=== PATIENT | female | born 1960 | race Caucasian/White ===

== ENCOUNTER 2019-10-26 16:38 | Inpatient (IN) | payer BC, OTHER ==
[~2019-10-26] VITALS: Ht 170.2 cm; Wt 69.9 kg
--- OUTSIDE RECORDS SUMMARY | 2019-10-26 18:04 | XMS REPORT | Continuity of Care Document ---
Author Author [facility] t Organization [facility] Address [address] [place] [address] Phone Unavailable Care Team Providers Care Scientific Illustrator Name Role Phone Unavailable Unavailable Payers Payer Name Policy Type Policy Number Effective Date Expiration Date S ource Problems This patient has no known problems. Allergies, Adverse Reactions, Alerts Allergy Name Allergy Type Status Severity Reaction(s) Onset Date Inacti ve Date Treating Clinician Comments Source No Known Allergies DA Active U 2019-05-22 00:00:00 [facility] No Known Allergies DA Active U 2019-05-18 00:00:00 [facility] Medications This patient has no known medications. Procedures This patient has no known procedures. Results Test Description Test Time Test Comments Results Result Comments Source - XR CHEST 1 V 2019-09-11 15:18:00 FAX: Dennys Newell DO [phone] [place]: St: ADM FAX: Marielena Bhandari MD [phone] FAX: Darius Lauren NP [phone] Name: VANDA HATCH [facility] : 1960 Age/S: 58/F [address] [place] [address] Blvd Unit #: [id number] Loc: [place] [address] Phys: Darius Lauren NP Acct: [id number] Dis Date: Status: ADM IN PHONE #: [phone] Exam Date: 09/11/2019 151 FAX #: [phone] Reason: Post PM/ICD EXAMS: CPT CODE: [id number] XR CHEST 1 V 26455 Single view chest: HISTORY: Pacemaker placement. FINDINGS: Leads of a left transvenous defibrillator placed in appropriate position, placed since the comparison study 09/08/2019. The lungs are clear. No pleural effusion or pneumothorax. Patient has had a sternotomy IMPRESSION: Satisfactory left defibrillator placement SL: [id number] at 1518 Reported and signed by: Dex Jimenez M.D. CC: Dennys Aguilar DO; Marielena Duff MD; Darius Lauren NP Technologist: KRISTINA Parrish) Trnscrd Date/Time/By: 09/11/2019 (1517) : By: RodriguezETG Orig Print D/T: S: 09/11/2019 (1520) PAGE 1 Signed Report BASIC METABOLIC PANEL 2019-09-11 11:54:00 Test Item SODIUM (test code = NA) 134 mEq/L 134-147 N POTASSIUM (test code = K) 3.4 mEq/L 3.4-5.0 N CHLORIDE (test code = CL) 91 mEq/L 100-108 L CARBON DIOXIDE (test code = CO2) 37 mEq/L 21-33 H ANION GAP (test code = GAP) 9 0-20 N GLUCOSE (test code = GLU) 98 mg/dL 70-110 N BLOOD UREA NITROGEN (test code = BUN) 53 mg/dL 7-18 H GLOMERULAR FILTRATION RATE (test code = GFR) 42.2 90-95 L Units of measure = ml/min/1.73 m2 CREATININE (test code = CREAT) 1.3 mg/dL 0.6-1.3 N CALCIUM (test code = CA) 9.4 mg/dL 8.0-10.5 N [id number] 11:54:00* Test Item Value Reference Range Interpretation Comments MAGNESIUM (test code = MAG) 2.60 mg/dL 1.8-2.4 H [id number] 06:38:00* Test Item Value Reference Range Interpretation Comments GLUBED (test code = GLUBED) 101 MG/DL 70-110 N Performed by certified cable machine operator at [facility] - XR CHEST 2 [id number] 14:39:00 FAX: Dennys Newell DO [phone] [place]: St: PRE FAX: Marielena Bhandari MD [phone] Name: MAMIEVANDA HANSEN [facility] : 1960 Age/S: 58/F [address] [place] [address] Unit #: [id number] Loc: [place] [address] Phys: Marielena Duff MD Acct: [id number] Dis Date: Status: PRE SDC PHONE #: [phone] Exam Date: 09/08/2019 1437 FAX #: [phone] Reason: PRE-OP ICD EXAMS: CPT CODE: [id number] XR CHEST 2 V 74779 Two-view chest: HISTORY: Preoperative clearance FINDINGS: Both lungs are clear. No infiltrate or pleural fluid. Heart and mediastinal contour stable from 06/22/2019. The patient has had a sternotomy IMPRESSION: No acute finding SL: [id number] at 1439 Reported and signed by: Dex Jimenez M.D. CC: Dennys Aguilar DO; Marielena Duff MD Technologist: Caitlyn Cervantes, RT(R); Diane Doll RT(R) Trnscrd Date/Time/By: 09/08/2019 (1439) : By: RodriguezETG Orig Print D/T: S: 09/08/2019 (7002) PAGE 1 Signed Report BASIC METABOLIC PANEL 2019-09-08 14:38:00* Test Item Value Reference Range Interpretation Comments SODIUM (test code = NA) 127 mEq/L 134-147 L POTASSIUM (test code = K) 2.8 mEq/L 3.4-5.0 LL CHLORIDE (test code = CL) 80 mEq/L 100-108 L CARBON DIOXIDE (test code = CO2) 38 mEq/L 21-33 H ANION GAP (test code = GAP) 12 0-20 N GLUCOSE (test code = GLU) 168 mg/dL 70-110 H BLOOD UREA NITROGEN (test code = BUN) 56 mg/dL 7-18 H GLOMERULAR FILTRATION RATE (test code = GFR) 90-95 CREATININE (test code = CREAT) mg/dL 0.6-1.3 CALCIUM (test code = CA) 9.9 mg/dL 8.0-10.5 N BASIC METABOLIC [id number] 14:38:00* Test Item Value Reference Range Interpretation Comments SODIUM (test code = NA) 127 mEq/L 134-147 L POTASSIUM (test code = K) 2.8 mEq/L 3.4-5.0 LL CHLORIDE (test code = CL) 80 mEq/L 100-108 L CARBON DIOXIDE (test code = CO2) 38 mEq/L 21-33 H ANION GAP (test code = GAP) 12 0-20 N GLUCOSE (test code = GLU) 168 mg/dL 70-110 H BLOOD UREA NITROGEN (test code = BUN) 56 mg/dL 7-18 H GLOMERULAR FILTRATION RATE (test code = GFR) 29.0 90-95 L Units of measure = ml/min/1.73 m2 CREATININE (test code = CREAT) 1.8 mg/dL 0.6-1.3 H CALCIUM (test code = CA) 9.9 mg/dL 8.0-10.5 N PROTHROMBIN [id number] 14:24:00* Test Item Value Reference Range Interpretation Comments PROTHROMBIN TIME PATIENT (test code = PTP) 18.6 SECONDS 9.3-12.9 H INTERNATIONAL NORMAL RATIO (test code = INR) 1.7 0.8-1.2 H TARGET INR BY INDICATION Indication INR1. Prophylaxis of venous thrombosis 2.0 - 3.0 (orthopedic surgery), Prophylaxis of venous thrombosis (other than high-risk surgery), Treatment of Deep Vein Thrombosis/Pulmonary Embolism, Prevention of systemic embolism - Tissue heart valves, Acute Myocardial Infarction (to prevent systemic embolism), Valvular heart disease, Atrial Fibrillation, Bileaflet mechanical valve in aortic position.2. Mechanical prosthetic valves (high risk), 2.5 - 3.5 Presence of Lupus Anticoagulant or Antiphospholipid Antibodies, Prevention of systemic embolism - Acute Myocardial Infarction (to prevent recurrent infarct). CBC W/AUTO [id number] 14:18:00* Test Item Value Reference Range Interpretation Comments WHITE BLOOD CELL (test code = WBC) 9.10 x10 3/uL 4.5-11.0 N RED BLOOD CELL (test code = RBC) 5.09 x10 6/uL 3.54-5.02 H HEMOGLOBIN (test code = HGB) 14.8 g/dL 11.0-15.0 N HEMATOCRIT (test code = HCT) 43.9 % 33.0-45.0 N MEAN CELL VOLUME (test code = MCV) 86.2 fL 81.0-99.0 N MEAN CELL HGB (test code = MCH) 29.1 pg 27.0-33.0 N MEAN CELL HGB CONCETRATION (test code = MCHC) 33.7 g/dL 33.0-37. 0 N RED CELL DISTRIBUTION WIDTH CV (test code = RDW) 13.2 % 11.5- 14.5 N RED CELL DISTRIBUTION WIDTH SD (test code = RDW-SD) 42.2 fL 37 .0-54.0 N PLATELET COUNT (test code = PLT) 358 x10 3/uL 150-400 N MEAN PLATELET VOLUME (test code = MPV) 10.4 fL 7.0-9.0 H NEUTROPHIL % (test code = NT%) 64.0 % 56.0-77.0 N IMMATURE GRANULOCYTE % (test code = IG%) 0.3 % 0.0-2.0 N LYMPHOCYTE % (test code = LY%) 26.4 % 14.0-32.0 N MONOCYTE % (test code = MO%) 7.4 % 4.8-9.0 N EOSINOPHIL % (test code = EO%) 1.1 % 0.3-3.7 N BASOPHIL % (test code = BA%) 0.8 % 0.0-2.0 N NUCLEATED RBC % (test code = NRBC%) 0.0 % 0-0 N NEUTROPHIL # (test code = NT#) 5.83 x10 3/uL 2.0-7.6 N IMMATURE GRANULOCYTE # (test code = IG#) 0.03 x10 3/uL 0.00-0.03 N LYMPHOCYTE # (test code = LY#) 2.40 x10 3/uL 1.0-3.8 N MONOCYTE # (test code = MO#) 0.67 x10 3/uL 0.1-0.8 N EOSINOPHIL # (test code = EO#) 0.10 x10 3/uL 0.0-0.2 N BASOPHIL # (test code = BA#) 0.07 x10 3/uL 0.0-0.2 N NUCLEATED RBC # (test code = NRBC#) 0.00 x10 3/uL 0.0-0.1 N MANUAL DIFF REQUIRED (test code = MDIFF) NO [id number] 11:11:00* Test Item Value Reference Range Interpretation Comments GLUBED (test code = GLUBED) 324 MG/DL 70-110 H Performed by certified cable machine operator at [facility] [id number] 07:12:00* Test Item Value Reference Range Interpretation Comments GLUBED (test code = GLUBED) 186 MG/DL 70-110 H Performed by certified cable machine operator at [facility] [id number] 06:28:00* Test Item Value Reference Range Interpretation Comments GLUBED (test code = GLUBED) 49 MG/DL 70-110 L Performed by certified cable machine operator at [facility] [id number] 20:37:00* Test Item Value Reference Range Interpretation Comments GLUBED (test code = GLUBED) 179 MG/DL 70-110 H Performed by certified cable machine operator at [facility] [id number] 16:24:00* Test Item Value Reference Range Interpretation Comments GLUBED (test code = GLUBED) 326 MG/DL 70-110 H Performed by certified cable machine operator at [facility] - XR SWLW FUNC W/C [id number] 14:13:00 FAX: Silvino Marcos [phone] [place]: St: ADM FAX: Dennys Newell DO [phone] Name: VANDA HATCH [facility] [place] : 1960 Age/S: 58/F [address] [place] [address] Unit #: [id number] Loc: [place] [address] Phys: Silvino Keller MD Acct: [id number] Dis Date: Status: ADM IN PHONE #: [phone] Exam Date: 06/26/2019 1340 FAX #: [phone] Reason: SENSATION GLOBUS EXAMS: CPT CODE: [id number] XR SWLW FUNC W/C V 93991 Modified barium swallow study HISTORY: Sensation g lobus, reflux. FINDINGS: The study was performed in conjunction [facility] speech therapy. The patient received multiple barium consistencies to swallow. There was normal oropharyngeal coordination. There is a prolong ed oropharyngeal transit. Chewing and swallowing reflex appeared normal. There was vallecular pooling and residual. Piriform pooling and re sidual was present. No laryngeal penetration or aspiration was identified . There was coughing without aspiration The total fluoroscopy narinder e was 105.6 seconds Air kerma: 4.36 mGy. IMPRESSION: 1. No aspiration or penetration. 2. Hypopharyngeal pooling and re sidual. 3. Prolonged oropharyngeal transit. 4. Normal swallow reflex. Please see speech pathology report for further informa tion and recommendations. SL: [id number] at 1413 Reported and si gned by: Kris Boles M.D. CC: Silivno Keller; Dennys flores DO Technologist: RT Marita(Ramírez) Trnscrd Date/Time/By: 06/26/2019 (1413) : By: [email or web address] Orig Print D/T: S: 06/26/2019 (0423) PAGE 1 Signed Report [id number] 10:54:00 * Test Item Value Reference Range Interpretation Comments GLUBED (test code = GLUBED) 325 MG/DL 70-110 H Performed by certified cable machine operator at [facility] BASIC METABOLIC [id number] 07:55:00* Test Item Value Reference Range Interpretation Comments SODIUM (test code = NA) 128 mEq/L 134-147 L POTASSIUM (test code = K) 4.2 mEq/L 3.4-5.0 N CHLORIDE (test code = CL) 90 mEq/L 100-108 L CARBON DIOXIDE (test code = CO2) 30 mEq/L 21-33 N ANION GAP (test code = GAP) 12 0-20 N GLUCOSE (test code = GLU) 212 mg/dL 70-110 H BLOOD UREA NITROGEN (test code = BUN) 35 mg/dL 7-18 H GLOMERULAR FILTRATION RATE (test code = GFR) 42.2 90-95 L Units of measure = ml/min/1.73 m2 CREATININE (test code = CREAT) 1.3 mg/dL 0.6-1.3 N CALCIUM (test code = CA) 9.2 mg/dL 8.0-10.5 N [id number] 07:55:00* Test Item Value Reference Range Interpretation Comments ALBUMIN (test code = ALB) 3.20 g/dL 3.4-5.0 L [id number] 07:55:00* Test Item Value Reference Range Interpretation Comments MAGNESIUM (test code = MAG) 2.20 mg/dL 1.8-2.4 N [id number] 07:55:00* Test Item Value Reference Range Interpretation Comments PREALBUMIN (test code = PREALB) 17.4 mg/dL 16.0-40.0 N CBC W/AUTO [id number] 07:22:00* Test Item Value Reference Range Interpretation Comments WHITE BLOOD CELL (test code = WBC) 7.64 x10 3/uL 4.5-11.0 N RED BLOOD CELL (test code = RBC) 4.05 x10 6/uL 3.54-5.02 N HEMOGLOBIN (test code = HGB) 12.1 g/dL 11.0-15.0 N HEMATOCRIT (test code = HCT) 38.0 % 33.0-45.0 N MEAN CELL VOLUME (test code = MCV) 93.8 fL 81.0-99.0 N MEAN CELL HGB (test code = MCH) 29.9 pg 27.0-33.0 N MEAN CELL HGB CONCETRATION (test code = MCHC) 31.8 g/dL 33.0-37. 0 L RED CELL DISTRIBUTION WIDTH CV (test code = RDW) 19.6 % 11.5- 14.5 H RED CELL DISTRIBUTION WIDTH SD (test code = RDW-SD) 67.7 fL 37 .0-54.0 H PLATELET COUNT (test code = PLT) 437 x10 3/uL 150-400 H MEAN PLATELET VOLUME (test code = MPV) 10.5 fL 7.0-9.0 H NEUTROPHIL % (test code = NT%) 57.8 % 56.0-77.0 N IMMATURE GRANULOCYTE % (test code = IG%) 0.5 % 0.0-2.0 N LYMPHOCYTE % (test code = LY%) 23.6 % 14.0-32.0 N MONOCYTE % (test code = MO%) 7.5 % 4.8-9.0 N EOSINOPHIL % (test code = EO%) 9.3 % 0.3-3.7 H BASOPHIL % (test code = BA%) 1.3 % 0.0-2.0 N NUCLEATED RBC % (test code = NRBC%) 0.0 % 0-0 N NEUTROPHIL # (test code = NT#) 4.42 x10 3/uL 2.0-7.6 N IMMATURE GRANULOCYTE # (test code = IG#) 0.04 x10 3/uL 0.00-0.03 H LYMPHOCYTE # (test code = LY#) 1.80 x10 3/uL 1.0-3.8 N MONOCYTE # (test code = MO#) 0.57 x10 3/uL 0.1-0.8 N EOSINOPHIL # (test code = EO#) 0.71 x10 3/uL 0.0-0.2 H BASOPHIL # (test code = BA#) 0.10 x10 3/uL 0.0-0.2 N NUCLEATED RBC # (test code = NRBC#) 0.00 x10 3/uL 0.0-0.1 N MANUAL DIFF REQUIRED (test code = MDIFF) NO [id number] 05:27:00* Test Item Value Reference Range Interpretation Comments GLUBED (test code = GLUBED) 231 MG/DL 70-110 H Performed by certified cable machine operator at [facility] [id number] 21:51:00* Test Item Value Reference Range Interpretation Comments GLUBED (test code = GLUBED) 172 MG/DL 70-110 H Performed by certified cable machine operator at [facility] [id number] 17:17:00* Test Item Value Reference Range Interpretation Comments GLUBED (test code = GLUBED) 95 MG/DL 70-110 N Performed by certified cable machine operator at [facility] [id number] 16:30:00* Test Item Value Reference Range Interpretation Comments GLUBED (test code = GLUBED) 61 MG/DL 70-110 L Performed by certified cable machine operator at [facility] [id number] 16:01:00* Test Item Value Reference Range Interpretation Comments GLUBED (test code = GLUBED) 63 MG/DL 70-110 L Performed by certified cable machine operator at [facility] [id number] 11:36:00* Test Item Value Reference Range Interpretation Comments GLUBED (test code = GLUBED) 212 MG/DL 70-110 H Performed by certified cable machine operator at [facility] [id number] 06:36:00* Test Item Value Reference Range Interpretation Comments GLUBED (test code = GLUBED) 147 MG/DL 70-110 H Performed by certified cable machine operator at [facility] [id number] 20:26:00* Test Item Value Reference Range Interpretation Comments GLUBED (test code = GLUBED) 121 MG/DL 70-110 H Performed by certified cable machine operator at [facility] [id number] 16:46:00* Test Item Value Reference Range Interpretation Comments GLUBED (test code = GLUBED) 157 MG/DL 70-110 H Performed by certified cable machine operator at [facility] [id number] 10:58:00* Test Item Value Reference Range Interpretation Comments GLUBED (test code = GLUBED) 196 MG/DL 70-110 H Performed by certified cable machine operator at [facility] RENAL FUNCTION [id number] 08:00:00* Test Item Value Reference Range Interpretation Comments SODIUM (test code = NA) 130 mEq/L 134-147 L POTASSIUM (test code = K) 4.1 mEq/L 3.4-5.0 N CHLORIDE (test code = CL) 91 mEq/L 100-108 L CARBON DIOXIDE (test code = CO2) 32 mEq/L 21-33 N ANION GAP (test code = GAP) 11 0-20 N GLUCOSE (test code = GLU) 144 mg/dL 70-110 H BLOOD UREA NITROGEN (test code = BUN) 36 mg/dL 7-18 H GLOMERULAR FILTRATION RATE (test code = GFR) 51.2 90-95 L Units of measure = ml/min/1.73 m2 CREATININE (test code = CREAT) 1.1 mg/dL 0.6-1.3 N ALBUMIN (test code = ALB) 3.30 g/dL 3.4-5.0 L CALCIUM (test code = CA) 9.3 mg/dL 8.0-10.5 N PHOSPHOROUS (test code = PHOS) 3.7 MG/DL 2.5-4.9 N BASIC METABOLIC [id number] 07:41:00* Test Item Value Reference Range Interpretation Comments SODIUM (test code = NA) 130 mEq/L 134-147 L POTASSIUM (test code = K) 4.2 mEq/L 3.4-5.0 N CHLORIDE (test code = CL) 91 mEq/L 100-108 L CARBON DIOXIDE (test code = CO2) 31 mEq/L 21-33 N ANION GAP (test code = GAP) 12 0-20 N GLUCOSE (test code = GLU) 145 mg/dL 70-110 H BLOOD UREA NITROGEN (test code = BUN) 35 mg/dL 7-18 H GLOMERULAR FILTRATION RATE (test code = GFR) 57.1 90-95 L Units of measure = ml/min/1.73 m2 CREATININE (test code = CREAT) 1.0 mg/dL 0.6-1.3 N CALCIUM (test code = CA) 9.4 mg/dL 8.0-10.5 N [id number] 07:41:00* Test Item Value Reference Range Interpretation Comments MAGNESIUM (test code = MAG) 2.40 mg/dL 1.8-2.4 N CBC W/AUTO [id number] 07:40:00* Test Item Value Reference Range Interpretation Comments WHITE BLOOD CELL (test code = WBC) 8.21 x10 3/uL 4.5-11.0 N RED BLOOD CELL (test code = RBC) 4.18 x10 6/uL 3.54-5.02 N HEMOGLOBIN (test code = HGB) 12.2 g/dL 11.0-15.0 N HEMATOCRIT (test code = HCT) 38.9 % 33.0-45.0 N MEAN CELL VOLUME (test code = MCV) 93.1 fL 81.0-99.0 N MEAN CELL HGB (test code = MCH) 29.2 pg 27.0-33.0 N MEAN CELL HGB CONCETRATION (test code = MCHC) 31.4 g/dL 33.0-37. 0 L RED CELL DISTRIBUTION WIDTH CV (test code = RDW) 19.9 % 11.5- 14.5 H RED CELL DISTRIBUTION WIDTH SD (test code = RDW-SD) 66.8 fL 37 .0-54.0 H PLATELET COUNT (test code = PLT) 416 x10 3/uL 150-400 H MEAN PLATELET VOLUME (test code = MPV) 10.3 fL 7.0-9.0 H NEUTROPHIL % (test code = NT%) 65.6 % 56.0-77.0 N IMMATURE GRANULOCYTE % (test code = IG%) 0.4 % 0.0-2.0 N LYMPHOCYTE % (test code = LY%) 18.9 % 14.0-32.0 N MONOCYTE % (test code = MO%) 6.9 % 4.8-9.0 N EOSINOPHIL % (test code = EO%) 6.7 % 0.3-3.7 H BASOPHIL % (test code = BA%) 1.5 % 0.0-2.0 N NUCLEATED RBC % (test code = NRBC%) 0.0 % 0-0 N NEUTROPHIL # (test code = NT#) 5.39 x10 3/uL 2.0-7.6 N IMMATURE GRANULOCYTE # (test code = IG#) 0.03 x10 3/uL 0.00-0.03 N LYMPHOCYTE # (test code = LY#) 1.55 x10 3/uL 1.0-3.8 N MONOCYTE # (test code = MO#) 0.57 x10 3/uL 0.1-0.8 N EOSINOPHIL # (test code = EO#) 0.55 x10 3/uL 0.0-0.2 H BASOPHIL # (test code = BA#) 0.12 x10 3/uL 0.0-0.2 N NUCLEATED RBC # (test code = NRBC#) 0.00 x10 3/uL 0.0-0.1 N MANUAL DIFF REQUIRED (test code = MDIFF) NO [id number] 06:42:00* Test Item Value Reference Range Interpretation Comments GLUBED (test code = GLUBED) 188 MG/DL 70-110 H Performed by certified cable machine operator at [facility] [id number] 20:41:00* Test Item Value Reference Range Interpretation Comments GLUBED (test code = GLUBED) 137 MG/DL 70-110 H Performed by certified cable machine operator at [facility] [id number] 16:39:00* Test Item Value Reference Range Interpretation Comments GLUBED (test code = GLUBED) 142 MG/DL 70-110 H Performed by certified cable machine operator at [facility] [id number] 12:09:00* Test Item Value Reference Range Interpretation Comments GLUBED (test code = GLUBED) 252 MG/DL 70-110 H Performed by certified cable machine operator at [facility] [id number] 08:52:00* Test Item Value Reference Range Interpretation Comments GLUBED (test code = GLUBED) 178 MG/DL 70-110 H Performed by certified cable machine operator at [facility] RENAL FUNCTION [id number] 08:50:00* Test Item Value Reference Range Interpretation Comments SODIUM (test code = NA) 130 mEq/L 134-147 L POTASSIUM (test code = K) 4.2 mEq/L 3.4-5.0 N CHLORIDE (test code = CL) 93 mEq/L 100-108 L CARBON DIOXIDE (test code = CO2) 30 mEq/L 21-33 N ANION GAP (test code = GAP) 11 0-20 N GLUCOSE (test code = GLU) 113 mg/dL 70-110 H BLOOD UREA NITROGEN (test code = BUN) 37 mg/dL 7-18 H GLOMERULAR FILTRATION RATE (test code = GFR) 51.2 90-95 L Units of measure = ml/min/1.73 m2 CREATININE (test code = CREAT) 1.1 mg/dL 0.6-1.3 N ALBUMIN (test code = ALB) 3.30 g/dL 3.4-5.0 L CALCIUM (test code = CA) 9.4 mg/dL 8.0-10.5 N PHOSPHOROUS (test code = PHOS) 3.5 MG/DL 2.5-4.9 N [id number] 06:49:00* Test Item Value Reference Range Interpretation Comments GLUBED (test code = GLUBED) 117 MG/DL 70-110 H Performed by certified cable machine operator at [facility] [id number] 21:09:00* Test Item Value Reference Range Interpretation Comments GLUBED (test code = GLUBED) 171 MG/DL 70-110 H Performed by certified cable machine operator at [facility] [id number] 16:55:00* Test Item Value Reference Range Interpretation Comments GLUBED (test code = GLUBED) 177 MG/DL 70-110 H Performed by certified cable machine operator at [facility] - XR CHEST 1 [id number] 15:44:00 FAX: Silvino Marcos [phone] [place]: St: ADM FAX: Dennys Newell [phone] Name: MAMIEVANDA [facility] : 1960 Age/S: 58/F [address] [place] [address] Bl Unit #: [id number] Loc: [address] [address] Phys: Silvino Keller MD Acct: [id number] Dis Date: Status: ADM IN PHONE #: [phone] Exam Date: 06/22/2019 1535 FAX #: [phone] Reason: CRACKLES L SIDE S/P CABG EXAMS: CPT CODE: [id number] XR CHEST 1 V 38504 FRONTAL CHEST, 06/22/2019 2:36 PM : HISTORY: CRACKLES L SIDE S/P CABG. COMPARISON: 06/10/2019 FINDINGS: The heart is stable size. Status post median sternotomy. Left basilar opacity with associated pleural effusion. Right lung appears clear. No pneumothorax. IMPRESSION: 1. Left basilar opacity which may represent atelectasis and/or airspace disease. Associated left pleural effusion. SL: CN-H at 1544 Reported and signed by: Lobo Gamez M.D. CC: Silvino Keller; Dennys Aguilar DO Technologist: RT Marita(Ramírez) Trnscrd Date/Time/By: 06/22/2019 (1543) : By: [email or web address] Orig Print D/T: S: 06/22/2019 (3462) PAGE 1 Signed Report [id number] 11:21:00 * Test Item Value Reference Range Interpretation Comments GLUBED (test code = GLUBED) 284 MG/DL 70-110 H Performed by certified cable machine operator at [facility] [id number] 08:51:00* Test Item Value Reference Range Interpretation Comments GLUBED (test code = GLUBED) 234 MG/DL 70-110 H Performed by certified cable machine operator at [facility] [id number] 08:50:00* Test Item Value Reference Range Interpretation Comments GLUBED (test code = GLUBED) 139 MG/DL 70-110 H Performed by certified cable machine operator at [facility] [id number] 06:30:00* Test Item Value Reference Range Interpretation Comments GLUBED (test code = GLUBED) 86 MG/DL 70-110 N Performed by certified cable machine operator at [facility] [id number] 16:50:00* Test Item Value Reference Range Interpretation Comments GLUBED (test code = GLUBED) 180 MG/DL 70-110 H Performed by certified cable machine operator at [facility] RENAL FUNCTION [id number] 08:36:00* Test Item Value Reference Range Interpretation Comments SODIUM (test code = NA) 128 mEq/L 134-147 L POTASSIUM (test code = K) 4.6 mEq/L 3.4-5.0 N CHLORIDE (test code = CL) 92 mEq/L 100-108 L CARBON DIOXIDE (test code = CO2) 30 mEq/L 21-33 N ANION GAP (test code = GAP) 11 0-20 N GLUCOSE (test code = GLU) 98 mg/dL 70-110 BLOOD UREA NITROGEN (test code = BUN) 40 mg/dL 7-18 H GLOMERULAR FILTRATION RATE (test code = GFR) 42.2 90-95 L Units of measure = ml/min/1.73 m2 CREATININE (test code = CREAT) 1.3 mg/dL 0.6-1.3 N ALBUMIN (test code = ALB) 3.20 g/dL 3.4-5.0 L CALCIUM (test code = CA) 9.0 mg/dL 8.0-10.5 N PHOSPHOROUS (test code = PHOS) 4.4 MG/DL 2.5-4.9 N [id number] 07:16:00* Test Item Value Reference Range Interpretation Comments GLUBED (test code = GLUBED) 107 MG/DL 70-110 N Performed by certified cable machine operator at [facility] [id number] 00:52:00* Test Item Value Reference Range Interpretation Comments GLUBED (test code = GLUBED) 69 MG/DL 70-110 L Performed by certified cable machine operator at [facility] [id number] 20:01:00* Test Item Value Reference Range Interpretation Comments GLUBED (test code = GLUBED) 293 MG/DL 70-110 H Performed by certified cable machine operator at [facility] [id number] 17:23:00* Test Item Value Reference Range Interpretation Comments GLUBED (test code = GLUBED) 32 MG/DL 70-110 L Performed by certified cable machine operator at [facility] [id number] 17:23:00* Test Item Value Reference Range Interpretation Comments GLUBED (test code = GLUBED) 40 MG/DL 70-110 L Performed by certified cable machine operator at [facility] [id number] 17:23:00* Test Item Value Reference Range Interpretation Comments GLUBED (test code = GLUBED) 203 MG/DL 70-110 H Performed by certified cable machine operator at [facility] [id number] 17:15:00* Test Item Value Reference Range Interpretation Comments GLUBED (test code = GLUBED) 90 MG/DL 70-110 N Performed by certified cable machine operator at [facility] - XR ABDOMEN 1V (KUB)2019-06-20 15:27:00 FAX: Silvino Marcos [phone] [place]: St: ADM FAX: Tamara Robins NP [phone] FAX: Sage Dennys Aguilar DO [phone] Name: VANDA HATCH [facility] : 1960 Age/S: 58/F [address] [place] [address] Unit #: [id number] Loc: [address] [address] Phys: Tamara Robins NP Acct: [id number] Dis Date: Status: ADM IN ONE #: [phone] Exam Date: 06/20/2019 1506 FAX #: [phone] Reason: NAUSEA AND VOMITTING EXAMS: CPT CODE: [id number] XR ABDOMEN 1V ([facility]) [id number] PROCEDURE: ABD OMEN SINGLE VIEW INDICATION: NAUSEA AND VOMITTING COMPARISON: CXR 06/10/2019 FINDINGS: Supine images of the abdomen a nd pelvis were obtained, 2 images total. The bowel gas pattern is within n ormal limits. Moderate volume of fecal material throughout the colon to th e level of rectum. Anastomotic suture material in the right abdomen with r egional hemostasis clips compatible with previous bowel surgery. No gross free intraperitoneal air. Vascular calcifications noted. There is a coarse calcification overlying the right renal shadow approximately 2.5 cm in length uncorrected for magnification. There is ill-defined opacity in the visualized left lung base with obscuration of the hemidiaphragm. The r ight lung base is clear. The skeleton is intact. Subcutaneous edema bilate ral. IMPRESSION: 1. Nonobstructive bowel gas pattern. Moderate stool burden. 2. Right abdominal calcification, compatible with renal pelvic calculus. 3. Left basilar pleural-parenchymal dise ase incompletely imaged on this exam with probable progression from 06/09. SL: [id number] Electr onically Signed by Erinn Edwards on 0 at 1527 Reported and signed by: Smith price M.D. CC: Silvino Keller; Tamara Robins NP; Dennys Aguilar DO Technologist: RT Marcie(R) Trnraheem Da te/Time/By: 06/20/2019 (152) : By: Yrn Orig Print D/T: S: 06/19 (1531) PAGE 1 Signed Report [id number] 14:30:00* Test Item Value Reference Range Interpretation Comments GLUBED (test code = GLUBED) 87 MG/DL 70-110 N Performed by certified cable machine operator at [facility] [id number] 13:48:00* Test Item Value Reference Range Interpretation Comments GLUBED (test code = GLUBED) 46 MG/DL 70-110 L Performed by certified cable machine operator at [facility] [id number] 12:19:00* Test Item Value Reference Range Interpretation Comments GLUBED (test code = GLUBED) 130 MG/DL 70-110 H Performed by certified cable machine operator at [facility] RENAL FUNCTION [id number] 08:16:00* Test Item Value Reference Range Interpretation Comments SODIUM (test code = NA) 128 mEq/L 134-147 L POTASSIUM (test code = K) 4.7 mEq/L 3.4-5.0 N CHLORIDE (test code = CL) 93 mEq/L 100-108 L CARBON DIOXIDE (test code = CO2) 27 mEq/L 21-33 N ANION GAP (test code = GAP) 13 0-20 N GLUCOSE (test code = GLU) 163 mg/dL 70-110 H BLOOD UREA NITROGEN (test code = BUN) 37 mg/dL 7-18 H GLOMERULAR FILTRATION RATE (test code = GFR) 46.3 90-95 L Units of measure = ml/min/1.73 m2 CREATININE (test code = CREAT) 1.2 mg/dL 0.6-1.3 N ALBUMIN (test code = ALB) 3.00 g/dL 3.4-5.0 L CALCIUM (test code = CA) 8.8 mg/dL 8.0-10.5 N PHOSPHOROUS (test code = PHOS) 3.8 MG/DL 2.5-4.9 N [id number] 08:16:00* Test Item Value Reference Range Interpretation Comments MAGNESIUM (test code = MAG) 2.50 mg/dL 1.8-2.4 H [id number] 01:21:00* Test Item Value Reference Range Interpretation Comments GLUBED (test code = GLUBED) 217 MG/DL 70-110 H Performed by certified cable machine operator at [facility] [id number] 22:29:00* Test Item Value Reference Range Interpretation Comments GLUBED (test code = GLUBED) 150 MG/DL 70-110 H Performed by certified cable machine operator at [facility] [id number] 21:50:00* Test Item Value Reference Range Interpretation Comments GLUBED (test code = GLUBED) 82 MG/DL 70-110 N Performed by certified cable machine operator at [facility] [id number] 21:28:00* Test Item Value Reference Range Interpretation Comments GLUBED (test code = GLUBED) 59 MG/DL 70-110 L Performed by certified cable machine operator at [facility] [id number] 21:12:00* Test Item Value Reference Range Interpretation Comments GLUBED (test code = GLUBED) 61 MG/DL 70-110 L Performed by certified cable machine operator at [facility] [id number] 17:27:00* Test Item Value Reference Range Interpretation Comments GLUBED (test code = GLUBED) 87 MG/DL 70-110 N Performed by certified cable machine operator at [facility] [id number] 16:46:00* Test Item Value Reference Range Interpretation Comments GLUBED (test code = GLUBED) 68 MG/DL 70-110 L Performed by certified cable machine operator at [facility] [id number] 14:45:00* Test Item Value Reference Range Interpretation Comments GLUBED (test code = GLUBED) 190 MG/DL 70-110 H Performed by certified cable machine operator at [facility] [id number] 11:24:00* Test Item Value Reference Range Interpretation Comments GLUBED (test code = GLUBED) 359 MG/DL 70-110 H Performed by certified cable machine operator at [facility] [id number] 09:29:00* Test Item Value Reference Range Interpretation Comments GLUBED (test code = GLUBED) 173 MG/DL 70-110 H Performed by certified cable machine operator at [facility] [id number] 09:28:00* Test Item Value Reference Range Interpretation Comments GLUBED (test code = GLUBED) 30 MG/DL 70-110 L Performed by certified cable machine operator at [facility] [id number] 09:27:00* Test Item Value Reference Range Interpretation Comments GLUBED (test code = GLUBED) 29 MG/DL 70-110 L Performed by certified cable machine operator at [facility] [id number] 09:27:00* Test Item Value Reference Range Interpretation Comments GLUBED (test code = GLUBED) 33 MG/DL 70-110 L Performed by certified cable machine operator at [facility] RENAL FUNCTION [id number] 09:16:00* Test Item Value Reference Range Interpretation Comments SODIUM (test code = NA) 128 mEq/L 134-147 L POTASSIUM (test code = K) 4.9 mEq/L 3.4-5.0 N CHLORIDE (test code = CL) 93 mEq/L 100-108 L CARBON DIOXIDE (test code = CO2) 26 mEq/L 21-33 N ANION GAP (test code = GAP) 14 0-20 N GLUCOSE (test code = GLU) 213 mg/dL 70-110 H BLOOD UREA NITROGEN (test code = BUN) 35 mg/dL 7-18 H GLOMERULAR FILTRATION RATE (test code = GFR) 46.3 90-95 L Units of measure = ml/min/1.73 m2 CREATININE (test code = CREAT) 1.2 mg/dL 0.6-1.3 N ALBUMIN (test code = ALB) 3.00 g/dL 3.4-5.0 L CALCIUM (test code = CA) 8.4 mg/dL 8.0-10.5 N PHOSPHOROUS (test code = PHOS) 4.0 MG/DL 2.5-4.9 N [id number] 09:16:00* Test Item Value Reference Range Interpretation Comments MAGNESIUM (test code = MAG) 2.40 mg/dL 1.8-2.4 N [id number] 09:16:00* Test Item Value Reference Range Interpretation Comments PREALBUMIN (test code = PREALB) 13.6 mg/dL 16.0-40.0 L [id number] 06:07:00* Test Item Value Reference Range Interpretation Comments GLUBED (test code = GLUBED) 231 MG/DL 70-110 H Performed by certified cable machine operator at [facility] [id number] 20:44:00* Test Item Value Reference Range Interpretation Comments GLUBED (test code = GLUBED) 100 MG/DL 70-110 N Performed by certified cable machine operator at [facility] [id number] 16:52:00* Test Item Value Reference Range Interpretation Comments GLUBED (test code = GLUBED) 72 MG/DL 70-110 N Performed by certified cable machine operator at [facility] [id number] 14:24:00* Test Item Value Reference Range Interpretation Comments GLUBED (test code = GLUBED) 64 MG/DL 70-110 L Performed by certified cable machine operator at [facility] RENAL FUNCTION [id number] 08:00:00* Test Item Value Reference Range Interpretation Comments SODIUM (test code = NA) 131 mEq/L 134-147 L POTASSIUM (test code = K) 4.5 mEq/L 3.4-5.0 N CHLORIDE (test code = CL) 96 mEq/L 100-108 L CARBON DIOXIDE (test code = CO2) 26 mEq/L 21-33 N ANION GAP (test code = GAP) 14 0-20 N GLUCOSE (test code = GLU) 200 mg/dL 70-110 H BLOOD UREA NITROGEN (test code = BUN) 33 mg/dL 7-18 H GLOMERULAR FILTRATION RATE (test code = GFR) 57.1 90-95 L Units of measure = ml/min/1.73 m2 CREATININE (test code = CREAT) 1.0 mg/dL 0.6-1.3 N ALBUMIN (test code = ALB) 3.00 g/dL 3.4-5.0 L CALCIUM (test code = CA) 8.7 mg/dL 8.0-10.5 N PHOSPHOROUS (test code = PHOS) 3.4 MG/DL 2.5-4.9 N [id number] 06:37:00* Test Item Value Reference Range Interpretation Comments GLUBED (test code = GLUBED) 200 MG/DL 70-110 H Performed by certified cable machine operator at [facility] [id number] 20:19:00* Test Item Value Reference Range Interpretation Comments GLUBED (test code = GLUBED) 141 MG/DL 70-110 H Performed by certified cable machine operator at [facility] [id number] 18:04:00* Test Item Value Reference Range Interpretation Comments GLUBED (test code = GLUBED) 111 MG/DL 70-110 H Performed by certified cable machine operator at [facility] [id number] 18:04:00* Test Item Value Reference Range Interpretation Comments GLUBED (test code = GLUBED) 55 MG/DL 70-110 L Performed by certified cable machine operator at [facility] [id number] 17:01:00* Test Item Value Reference Range Interpretation Comments GLUBED (test code = GLUBED) 57 MG/DL 70-110 L Performed by certified cable machine operator at [facility] [id number] 17:01:00* Test Item Value Reference Range Interpretation Comments GLUBED (test code = GLUBED) 47 MG/DL 70-110 L Performed by certified cable machine operator at [facility] [id number] 11:23:00* Test Item Value Reference Range Interpretation Comments GLUBED (test code = GLUBED) 243 MG/DL 70-110 H Performed by certified cable machine operator at [facility] RENAL FUNCTION [id number] 08:02:00* Test Item Value Reference Range Interpretation Comments SODIUM (test code = NA) 129 mEq/L 134-147 L POTASSIUM (test code = K) 4.1 mEq/L 3.4-5.0 N CHLORIDE (test code = CL) 94 mEq/L 100-108 L CARBON DIOXIDE (test code = CO2) 28 mEq/L 21-33 N ANION GAP (test code = GAP) 11 0-20 N GLUCOSE (test code = GLU) 128 mg/dL 70-110 H BLOOD UREA NITROGEN (test code = BUN) 39 mg/dL 7-18 H GLOMERULAR FILTRATION RATE (test code = GFR) 51.2 90-95 L Units of measure = ml/min/1.73 m2 CREATININE (test code = CREAT) 1.1 mg/dL 0.6-1.3 N ALBUMIN (test code = ALB) 2.90 g/dL 3.4-5.0 L CALCIUM (test code = CA) 8.7 mg/dL 8.0-10.5 N PHOSPHOROUS (test code = PHOS) 3.6 MG/DL 2.5-4.9 N [id number] 06:30:00* Test Item Value Reference Range Interpretation Comments GLUBED (test code = GLUBED) 136 MG/DL 70-110 H Performed by certified cable machine operator at [facility] [id number] 20:29:00* Test Item Value Reference Range Interpretation Comments GLUBED (test code = GLUBED) 121 MG/DL 70-110 H Performed by certified cable machine operator at [facility] [id number] 16:17:00* Test Item Value Reference Range Interpretation Comments GLUBED (test code = GLUBED) 154 MG/DL 70-110 H Performed by certified cable machine operator at [facility] [id number] 11:27:00* Test Item Value Reference Range Interpretation Comments GLUBED (test code = GLUBED) 232 MG/DL 70-110 H Performed by certified cable machine operator at [facility] BASIC METABOLIC [id number] 11:01:00* Test Item Value Reference Range Interpretation Comments SODIUM (test code = NA) 125 mEq/L 134-147 L POTASSIUM (test code = K) 4.4 mEq/L 3.4-5.0 N CHLORIDE (test code = CL) 92 mEq/L 100-108 L CARBON DIOXIDE (test code = CO2) 28 mEq/L 21-33 ANION GAP (test code = GAP) 9 0-20 N GLUCOSE (test code = GLU) 232 mg/dL 70-110 H BLOOD UREA NITROGEN (test code = BUN) 39 mg/dL 7-18 H GLOMERULAR FILTRATION RATE (test code = GFR) 46.3 90-95 L Units of measure = ml/min/1.73 m2 CREATININE (test code = CREAT) 1.2 mg/dL 0.6-1.3 N CALCIUM (test code = CA) 8.3 mg/dL 8.0-10.5 N [id number] 11:01:00* Test Item Value Reference Range Interpretation Comments MAGNESIUM (test code = MAG) 2.40 mg/dL 1.8-2.4 N CBC W/AUTO [id number] 08:17:00* Test Item Value Reference Range Interpretation Comments WHITE BLOOD CELL (test code = WBC) 7.84 x10 3/uL 4.5-11.0 N RED BLOOD CELL (test code = RBC) 3.93 x10 6/uL 3.54-5.02 N HEMOGLOBIN (test code = HGB) 11.4 g/dL 11.0-15.0 N HEMATOCRIT (test code = HCT) 37.2 % 33.0-45.0 N MEAN CELL VOLUME (test code = MCV) 94.7 fL 81.0-99.0 N MEAN CELL HGB (test code = MCH) 29.0 pg 27.0-33.0 N MEAN CELL HGB CONCETRATION (test code = MCHC) 30.6 g/dL 33.0-37. 0 L RED CELL DISTRIBUTION WIDTH CV (test code = RDW) 19.3 % 11.5- 14.5 H RED CELL DISTRIBUTION WIDTH SD (test code = RDW-SD) 65.7 fL 37 .0-54.0 H PLATELET COUNT (test code = PLT) 406 x10 3/uL 150-400 H MEAN PLATELET VOLUME (test code = MPV) 10.7 fL 7.0-9.0 H NEUTROPHIL % (test code = NT%) 65.5 % 56.0-77.0 N IMMATURE GRANULOCYTE % (test code = IG%) 0.6 % 0.0-2.0 N LYMPHOCYTE % (test code = LY%) 19.1 % 14.0-32.0 N MONOCYTE % (test code = MO%) 9.2 % 4.8-9.0 H EOSINOPHIL % (test code = EO%) 4.3 % 0.3-3.7 H BASOPHIL % (test code = BA%) 1.3 % 0.0-2.0 N NUCLEATED RBC % (test code = NRBC%) 0.0 % 0-0 N NEUTROPHIL # (test code = NT#) 5.13 x10 3/uL 2.0-7.6 N IMMATURE GRANULOCYTE # (test code = IG#) 0.05 x10 3/uL 0.00-0.03 H LYMPHOCYTE # (test code = LY#) 1.50 x10 3/uL 1.0-3.8 N MONOCYTE # (test code = MO#) 0.72 x10 3/uL 0.1-0.8 N EOSINOPHIL # (test code = EO#) 0.34 x10 3/uL 0.0-0.2 H BASOPHIL # (test code = BA#) 0.10 x10 3/uL 0.0-0.2 N NUCLEATED RBC # (test code = NRBC#) 0.00 x10 3/uL 0.0-0.1 N MANUAL DIFF REQUIRED (test code = MDIFF) NO [id number] 06:29:00* Test Item Value Reference Range Interpretation Comments GLUBED (test code = GLUBED) 83 MG/DL 70-110 N Performed by certified cable machine operator at [facility] [id number] 21:04:00* Test Item Value Reference Range Interpretation Comments GLUBED (test code = GLUBED) 111 MG/DL 70-110 H Performed by certified cable machine operator at [facility] [id number] 16:46:00* Test Item Value Reference Range Interpretation Comments GLUBED (test code = GLUBED) 194 MG/DL 70-110 H Performed by certified cable machine operator at [facility] [id number] 11:22:00* Test Item Value Reference Range Interpretation Comments GLUBED (test code = GLUBED) 180 MG/DL 70-110 H Performed by certified cable machine operator at [facility] BASIC METABOLIC [id number] 08:14:00* Test Item Value Reference Range Interpretation Comments SODIUM (test code = NA) 125 mEq/L 134-147 L POTASSIUM (test code = K) 4.5 mEq/L 3.4-5.0 N CHLORIDE (test code = CL) 92 mEq/L 100-108 L CARBON DIOXIDE (test code = CO2) 22 mEq/L 21-33 N ANION GAP (test code = GAP) 16 0-20 N GLUCOSE (test code = GLU) 168 mg/dL 70-110 H BLOOD UREA NITROGEN (test code = BUN) 38 mg/dL 7-18 H GLOMERULAR FILTRATION RATE (test code = GFR) 42.2 90-95 L Units of measure = ml/min/1.73 m2 CREATININE (test code = CREAT) 1.3 mg/dL 0.6-1.3 N CALCIUM (test code = CA) 8.7 mg/dL 8.0-10.5 N [id number] 08:14:00* Test Item Value Reference Range Interpretation Comments MAGNESIUM (test code = MAG) 2.30 mg/dL 1.8-2.4 N [id number] 08:09:00* Test Item Value Reference Range Interpretation Comments GLUBED (test code = GLUBED) 106 MG/DL 70-110 N Performed by certified cable machine operator at [facility] [id number] 08:09:00* Test Item Value Reference Range Interpretation Comments GLUBED (test code = GLUBED) 38 MG/DL 70-110 L Performed by certified cable machine operator at [facility] [id number] 08:07:00* Test Item Value Reference Range Interpretation Comments GLUBED (test code = GLUBED) 31 MG/DL 70-110 L Performed by certified cable machine operator at [facility] CBC W/AUTO [id number] 07:47:00* Test Item Value Reference Range Interpretation Comments WHITE BLOOD CELL (test code = WBC) 10.82 x10 3/uL 4.5-11.0 N RED BLOOD CELL (test code = RBC) 3.67 x10 6/uL 3.54-5.02 N HEMOGLOBIN (test code = HGB) 10.6 g/dL 11.0-15.0 L HEMATOCRIT (test code = HCT) 35.2 % 33.0-45.0 N MEAN CELL VOLUME (test code = MCV) 95.9 fL 81.0-99.0 N MEAN CELL HGB (test code = MCH) 28.9 pg 27.0-33.0 N MEAN CELL HGB CONCETRATION (test code = MCHC) 30.1 g/dL 33.0-37. 0 L RED CELL DISTRIBUTION WIDTH CV (test code = RDW) 19.1 % 11.5- 14.5 H RED CELL DISTRIBUTION WIDTH SD (test code = RDW-SD) 66.6 fL 37 .0-54.0 H PLATELET COUNT (test code = PLT) 471 x10 3/uL 150-400 H MEAN PLATELET VOLUME (test code = MPV) 10.6 fL 7.0-9.0 H NEUTROPHIL % (test code = NT%) 76.0 % 56.0-77.0 N IMMATURE GRANULOCYTE % (test code = IG%) 0.8 % 0.0-2.0 N LYMPHOCYTE % (test code = LY%) 11.1 % 14.0-32.0 L MONOCYTE % (test code = MO%) 7.9 % 4.8-9.0 N EOSINOPHIL % (test code = EO%) 3.3 % 0.3-3.7 N BASOPHIL % (test code = BA%) 0.9 % 0.0-2.0 N NUCLEATED RBC % (test code = NRBC%) 0.0 % 0-0 N NEUTROPHIL # (test code = NT#) 8.21 x10 3/uL 2.0-7.6 H IMMATURE GRANULOCYTE # (test code = IG#) 0.09 x10 3/uL 0.00-0.03 H LYMPHOCYTE # (test code = LY#) 1.20 x10 3/uL 1.0-3.8 N MONOCYTE # (test code = MO#) 0.86 x10 3/uL 0.1-0.8 H EOSINOPHIL # (test code = EO#) 0.36 x10 3/uL 0.0-0.2 H BASOPHIL # (test code = BA#) 0.10 x10 3/uL 0.0-0.2 N NUCLEATED RBC # (test code = NRBC#) 0.00 x10 3/uL 0.0-0.1 N MANUAL DIFF REQUIRED (test code = MDIFF) NO [id number] 07:32:00* Test Item Value Reference Range Interpretation Comments GLUBED (test code = GLUBED) 188 MG/DL 70-110 H Performed by certified cable machine operator at [facility] [id number] 06:01:00* Test Item Value Reference Range Interpretation Comments GLUBED (test code = GLUBED) 48 MG/DL 70-110 L Performed by certified cable machine operator at [facility] [id number] 21:16:00* Test Item Value Reference Range Interpretation Comments GLUBED (test code = GLUBED) 153 MG/DL 70-110 H Performed by certified cable machine operator at [facility] [id number] 21:07:00* Test Item Value Reference Range Interpretation Comments GLUBED (test code = GLUBED) 47 MG/DL 70-110 L Performed by certified cable machine operator at [facility] [id number] 18:56:00* Test Item Value Reference Range Interpretation Comments GLUBED (test code = GLUBED) 134 MG/DL 70-110 H Performed by certified cable machine operator at [facility] [id number] 12:02:00* Test Item Value Reference Range Interpretation Comments GLUBED (test code = GLUBED) 219 MG/DL 70-110 H Performed by certified cable machine operator at [facility] [id number] 06:36:00* Test Item Value Reference Range Interpretation Comments GLUBED (test code = GLUBED) 204 MG/DL 70-110 H Performed by certified cable machine operator at [facility] [id number] 04:21:00* Test Item Value Reference Range Interpretation Comments GLUBED (test code = GLUBED) 187 MG/DL 70-110 H Performed by certified cable machine operator at [facility] [id number] 20:40:00* Test Item Value Reference Range Interpretation Comments GLUBED (test code = GLUBED) 158 MG/DL 70-110 H Performed by certified cable machine operator at [facility] [id number] 17:05:00* Test Item Value Reference Range Interpretation Comments GLUBED (test code = GLUBED) 106 MG/DL 70-110 N Performed by certified cable machine operator at [facility] [id number] 17:05:00* Test Item Value Reference Range Interpretation Comments GLUBED (test code = GLUBED) 106 MG/DL 70-110 N Performed by certified cable machine operator at [facility] [id number] 16:29:00* Test Item Value Reference Range Interpretation Comments GLUBED (test code = GLUBED) 48 MG/DL 70-110 L Performed by certified cable machine operator at [facility] [id number] 11:11:00* Test Item Value Reference Range Interpretation Comments GLUBED (test code = GLUBED) 287 MG/DL 70-110 H Performed by certified cable machine operator at [facility] CBC W/AUTO [id number] 08:38:00* Test Item Value Reference Range Interpretation Comments WHITE BLOOD CELL (test code = WBC) 10.64 x10 3/uL 4.5-11.0 N RED BLOOD CELL (test code = RBC) 3.71 x10 6/uL 3.54-5.02 N HEMOGLOBIN (test code = HGB) 10.6 g/dL 11.0-15.0 L HEMATOCRIT (test code = HCT) 34.7 % 33.0-45.0 N MEAN CELL VOLUME (test code = MCV) 93.5 fL 81.0-99.0 N MEAN CELL HGB (test code = MCH) 28.6 pg 27.0-33.0 N MEAN CELL HGB CONCETRATION (test code = MCHC) 30.5 g/dL 33.0-37. 0 L RED CELL DISTRIBUTION WIDTH CV (test code = RDW) 19.0 % 11.5- 14.5 H RED CELL DISTRIBUTION WIDTH SD (test code = RDW-SD) 63.6 fL 37 .0-54.0 H PLATELET COUNT (test code = PLT) 458 x10 3/uL 150-400 H MEAN PLATELET VOLUME (test code = MPV) 10.7 fL 7.0-9.0 H NEUTROPHIL % (test code = NT%) 76.0 % 56.0-77.0 N IMMATURE GRANULOCYTE % (test code = IG%) 0.7 % 0.0-2.0 N LYMPHOCYTE % (test code = LY%) 13.3 % 14.0-32.0 L MONOCYTE % (test code = MO%) 5.9 % 4.8-9.0 N EOSINOPHIL % (test code = EO%) 3.3 % 0.3-3.7 N BASOPHIL % (test code = BA%) 0.8 % 0.0-2.0 N NUCLEATED RBC % (test code = NRBC%) 0.0 % 0-0 N NEUTROPHIL # (test code = NT#) 8.08 x10 3/uL 2.0-7.6 H IMMATURE GRANULOCYTE # (test code = IG#) 0.07 x10 3/uL 0.00-0.03 H LYMPHOCYTE # (test code = LY#) 1.42 x10 3/uL 1.0-3.8 N MONOCYTE # (test code = MO#) 0.63 x10 3/uL 0.1-0.8 N EOSINOPHIL # (test code = EO#) 0.35 x10 3/uL 0.0-0.2 H BASOPHIL # (test code = BA#) 0.09 x10 3/uL 0.0-0.2 N NUCLEATED RBC # (test code = NRBC#) 0.00 x10 3/uL 0.0-0.1 N MANUAL DIFF REQUIRED (test code = MDIFF) NO COMPREHENSIVE METABOLIC [id number] 08:32:00* Test Item Value Reference Range Interpretation Comments SODIUM (test code = NA) 130 mEq/L 134-147 L POTASSIUM (test code = K) 4.4 mEq/L 3.4-5.0 N CHLORIDE (test code = CL) 93 mEq/L 100-108 L CARBON DIOXIDE (test code = CO2) 29 mEq/L 21-33 N ANION GAP (test code = GAP) 12 0-20 N GLUCOSE (test code = GLU) 261 mg/dL 70-110 H BLOOD UREA NITROGEN (test code = BUN) 33 mg/dL 7-18 H GLOMERULAR FILTRATION RATE (test code = GFR) 51.2 90-95 L Units of measure = ml/min/1.73 m2 CREATININE (test code = CREAT) 1.1 mg/dL 0.6-1.3 N TOTAL PROTEIN (test code = PROT) 7.4 g/dL 6.4-8.2 N ALBUMIN (test code = ALB) 3.10 g/dL 3.4-5.0 L CALCIUM (test code = CA) 8.8 mg/dL 8.0-10.5 N BILIRUBIN TOTAL (test code = BILT) 1.6 MG/DL <1.5 H SGOT/AST (test code = AST) 56 IUnit/L 15-37 H SGPT/ALT (test code = ALT) 50 IUnit/L 15-65 N ALKALINE PHOSPHATASE TOTAL (test code = ALKP) 536 IUnit/L 20-125 H [id number] 08:32:00* Test Item Value Reference Range Interpretation Comments MAGNESIUM (test code = MAG) 2.40 mg/dL 1.8-2.4 N [id number] 06:52:00* Test Item Value Reference Range Interpretation Comments GLUBED (test code = GLUBED) 245 MG/DL 70-110 H Performed by certified cable machine operator at [facility] [id number] 20:52:00* Test Item Value Reference Range Interpretation Comments GLUBED (test code = GLUBED) 139 MG/DL 70-110 H Performed by certified cable machine operator at [facility] [id number] 17:58:00* Test Item Value Reference Range Interpretation Comments GLUBED (test code = GLUBED) 122 MG/DL 70-110 H Performed by certified cable machine operator at [facility] [id number] 17:38:00* Test Item Value Reference Range Interpretation Comments GLUBED (test code = GLUBED) 137 MG/DL 70-110 H Performed by certified cable machine operator at [facility] [id number] 12:43:00* Test Item Value Reference Range Interpretation Comments GLUBED (test code = GLUBED) 450 MG/DL 70-110 H Performed by certified cable machine operator at [facility] [id number] 09:05:00* Test Item Value Reference Range Interpretation Comments GLUBED (test code = GLUBED) 422 MG/DL 70-110 H Performed by certified cable machine operator at [facility] [id number] 09:04:00* Test Item Value Reference Range Interpretation Comments GLUBED (test code = GLUBED) 258 MG/DL 70-110 H Performed by certified cable machine operator at [facility] [id number] 09:00:00* Test Item Value Reference Range Interpretation Comments GLUBED (test code = GLUBED) 42 MG/DL 70-110 L Performed by certified cable machine operator at [facility] [id number] 09:00:00* Test Item Value Reference Range Interpretation Comments GLUBED (test code = GLUBED) 37 MG/DL 70-110 L Performed by certified cable machine operator at [facility] [id number] 08:16:00* Test Item Value Reference Range Interpretation Comments GLUBED (test code = GLUBED) 406 MG/DL 70-110 H Performed by certified cable machine operator at [facility] CBC W/AUTO [id number] 08:14:00* Test Item Value Reference Range Interpretation Comments WHITE BLOOD CELL (test code = WBC) 12.11 x10 3/uL 4.5-11.0 H RED BLOOD CELL (test code = RBC) 3.60 x10 6/uL 3.54-5.02 N HEMOGLOBIN (test code = HGB) 10.4 g/dL 11.0-15.0 L HEMATOCRIT (test code = HCT) 34.0 % 33.0-45.0 N MEAN CELL VOLUME (test code = MCV) 94.4 fL 81.0-99.0 N MEAN CELL HGB (test code = MCH) 28.9 pg 27.0-33.0 N MEAN CELL HGB CONCETRATION (test code = MCHC) 30.6 g/dL 33.0-37. 0 L RED CELL DISTRIBUTION WIDTH CV (test code = RDW) 18.9 % 11.5- 14.5 H RED CELL DISTRIBUTION WIDTH SD (test code = RDW-SD) 63.3 fL 37 .0-54.0 H PLATELET COUNT (test code = PLT) 445 x10 3/uL 150-400 H MEAN PLATELET VOLUME (test code = MPV) 10.9 fL 7.0-9.0 H NEUTROPHIL % (test code = NT%) 76.0 % 56.0-77.0 N IMMATURE GRANULOCYTE % (test code = IG%) 0.9 % 0.0-2.0 N LYMPHOCYTE % (test code = LY%) 11.6 % 14.0-32.0 L MONOCYTE % (test code = MO%) 7.5 % 4.8-9.0 N EOSINOPHIL % (test code = EO%) 3.1 % 0.3-3.7 N BASOPHIL % (test code = BA%) 0.9 % 0.0-2.0 N NUCLEATED RBC % (test code = NRBC%) 0.0 % 0-0 N NEUTROPHIL # (test code = NT#) 9.21 x10 3/uL 2.0-7.6 H IMMATURE GRANULOCYTE # (test code = IG#) 0.11 x10 3/uL 0.00-0.03 H LYMPHOCYTE # (test code = LY#) 1.40 x10 3/uL 1.0-3.8 N MONOCYTE # (test code = MO#) 0.91 x10 3/uL 0.1-0.8 H EOSINOPHIL # (test code = EO#) 0.37 x10 3/uL 0.0-0.2 H BASOPHIL # (test code = BA#) 0.11 x10 3/uL 0.0-0.2 N NUCLEATED RBC # (test code = NRBC#) 0.00 x10 3/uL 0.0-0.1 N MANUAL DIFF REQUIRED (test code = MDIFF) NO BASIC METABOLIC [id number] 07:55:00* Test Item Value Reference Range Interpretation Comments SODIUM (test code = NA) 127 mEq/L 134-147 L POTASSIUM (test code = K) 4.8 mEq/L 3.4-5.0 N CHLORIDE (test code = CL) 91 mEq/L 100-108 L CARBON DIOXIDE (test code = CO2) 29 mEq/L 21-33 N ANION GAP (test code = GAP) 12 0-20 N GLUCOSE (test code = GLU) 345 mg/dL 70-110 H BLOOD UREA NITROGEN (test code = BUN) 34 mg/dL 7-18 H GLOMERULAR FILTRATION RATE (test code = GFR) 51.2 90-95 L Units of measure = ml/min/1.73 m2 CREATININE (test code = CREAT) 1.1 mg/dL 0.6-1.3 N CALCIUM (test code = CA) 8.7 mg/dL 8.0-10.5 N [id number] 07:55:00* Test Item Value Reference Range Interpretation Comments MAGNESIUM (test code = MAG) 2.40 mg/dL 1.8-2.4 N [id number] 06:26:00* Test Item Value Reference Range Interpretation Comments GLUBED (test code = GLUBED) 450 MG/DL 70-110 H Performed by certified cable machine operator at [facility] [id number] 00:09:00* Test Item Value Reference Range Interpretation Comments GLUBED (test code = GLUBED) 84 MG/DL 70-110 N Performed by certified cable machine operator at [facility] [id number] 16:16:00* Test Item Value Reference Range Interpretation Comments GLUBED (test code = GLUBED) 122 MG/DL 70-110 H Performed by certified cable machine operator at [facility] [id number] 12:45:00* Test Item Value Reference Range Interpretation Comments GLUBED (test code = GLUBED) 309 MG/DL 70-110 H Performed by certified cable machine operator at [facility] [id number] 09:37:00* Test Item Value Reference Range Interpretation Comments GLUBED (test code = GLUBED) 238 MG/DL 70-110 H Performed by certified cable machine operator at [facility] BASIC METABOLIC [id number] 04:18:00* Test Item Value Reference Range Interpretation Comments SODIUM (test code = NA) 131 mEq/L 134-147 L POTASSIUM (test code = K) 4.4 mEq/L 3.4-5.0 N CHLORIDE (test code = CL) 92 mEq/L 100-108 L CARBON DIOXIDE (test code = CO2) 33 mEq/L 21-33 N ANION GAP (test code = GAP) 10 0-20 N GLUCOSE (test code = GLU) 209 mg/dL 70-110 H BLOOD UREA NITROGEN (test code = BUN) 32 mg/dL 7-18 H GLOMERULAR FILTRATION RATE (test code = GFR) 57.1 90-95 L Units of measure = ml/min/1.73 m2 CREATININE (test code = CREAT) 1.0 mg/dL 0.6-1.3 N CALCIUM (test code = CA) 8.5 mg/dL 8.0-10.5 N [id number] 04:18:00* Test Item Value Reference Range Interpretation Comments MAGNESIUM (test code = MAG) 2.60 mg/dL 1.8-2.4 H CBC W/AUTO [id number] 04:06:00* Test Item Value Reference Range Interpretation Comments WHITE BLOOD CELL (test code = WBC) 13.95 x10 3/uL 4.5-11.0 H RED BLOOD CELL (test code = RBC) 3.66 x10 6/uL 3.54-5.02 N HEMOGLOBIN (test code = HGB) 10.6 g/dL 11.0-15.0 L HEMATOCRIT (test code = HCT) 34.1 % 33.0-45.0 N MEAN CELL VOLUME (test code = MCV) 93.2 fL 81.0-99.0 N MEAN CELL HGB (test code = MCH) 29.0 pg 27.0-33.0 N MEAN CELL HGB CONCETRATION (test code = MCHC) 31.1 g/dL 33.0-37. 0 L RED CELL DISTRIBUTION WIDTH CV (test code = RDW) 18.4 % 11.5- 14.5 H RED CELL DISTRIBUTION WIDTH SD (test code = RDW-SD) 60.8 fL 37 .0-54.0 H PLATELET COUNT (test code = PLT) 440 x10 3/uL 150-400 H MEAN PLATELET VOLUME (test code = MPV) 10.5 fL 7.0-9.0 H NEUTROPHIL % (test code = NT%) 78.1 % 56.0-77.0 H IMMATURE GRANULOCYTE % (test code = IG%) 0.6 % 0.0-2.0 N LYMPHOCYTE % (test code = LY%) 11.1 % 14.0-32.0 L MONOCYTE % (test code = MO%) 6.7 % 4.8-9.0 N EOSINOPHIL % (test code = EO%) 2.9 % 0.3-3.7 N BASOPHIL % (test code = BA%) 0.6 % 0.0-2.0 N NUCLEATED RBC % (test code = NRBC%) 0.0 % 0-0 N NEUTROPHIL # (test code = NT#) 10.90 x10 3/uL 2.0-7.6 H IMMATURE GRANULOCYTE # (test code = IG#) 0.09 x10 3/uL 0.00-0.03 H LYMPHOCYTE # (test code = LY#) 1.55 x10 3/uL 1.0-3.8 N MONOCYTE # (test code = MO#) 0.93 x10 3/uL 0.1-0.8 H EOSINOPHIL # (test code = EO#) 0.40 x10 3/uL 0.0-0.2 H BASOPHIL # (test code = BA#) 0.08 x10 3/uL 0.0-0.2 N NUCLEATED RBC # (test code = NRBC#) 0.00 x10 3/uL 0.0-0.1 N MANUAL DIFF REQUIRED (test code = MDIFF) NO [id number] 21:09:00* Test Item Value Reference Range Interpretation Comments GLUBED (test code = GLUBED) 106 MG/DL 70-110 N Performed by certified cable machine operator at [facility] [id number] 18:29:00* Test Item Value Reference Range Interpretation Comments GLUBED (test code = GLUBED) 150 MG/DL 70-110 H Performed by certified cable machine operator at [facility] [id number] 12:29:00* Test Item Value Reference Range Interpretation Comments GLUBED (test code = GLUBED) 177 MG/DL 70-110 H Performed by certified cable machine operator at [facility] - XR CHEST 1 [id number] 07:08:00 FAX: Santi De León MD [phone] [place]: St: ADM FAX: Marvel Donato I [phone] FAX: Dennys Newell DO [phone] Name: VANDA HATCH [facility] : 1960 Age/S: 58/F [address] [place] [address] Unit #: [id number] Loc: G.3306 [place] [address] Phys: Marvel Mariee MD Acct: [id number] Dis Date: Status: ADM IN PHONE #: [phone] Exam Date: 06/10/2019 0645 FAX #: [phone] Reason: COUGHS EXAMS: CPT CODE: [id number] XR CHEST 1 V 52702 CHEST RADIOGRA PH ONE VIEW 06/10/2019 AT 0559 HOURS. CLINICAL HISTORY: Post CABG. Cough. COMPARISON STUDIES: Chest one view from 06/07/2019. FINDINGS: One view of the chest was obtained. Grossly stable postop erative mediastinum with continued improvement of pulmonary aeration and n ear resolution of pleural fluid versus the previous study. Linear p latelike atelectasis is seen in the left retrocardiac region and left midl terra. No destructive bone lesions. IMPRESSION: 1. Improv ed pulmonary aeration. 2. Stable postoperative mediastinum. SL: [id number] at 0708 Reported and signed by: Paulo Blackwell M.D. CC: Santi Cortés MD; Marvel Espinosa MD; Dennys Aguilar DO Technologist: Lenora Smart, RT(R); Diane Doll RT(R) Riley Schroeder ate/Time/By: 06/10/2019 (0708) : By: [email or web address] Orig Print D/T: S: 05/23 (6565) PAGE 1 Signed Repor t COMPREHENSIVE METABOLIC [id number] 05:04:00 * Test Item Value Reference Range Interpretation Comments SODIUM (test code = NA) 128 mEq/L 134-147 L POTASSIUM (test code = K) 4.2 mEq/L 3.4-5.0 N CHLORIDE (test code = CL) 90 mEq/L 100-108 L CARBON DIOXIDE (test code = CO2) 32 mEq/L 21-33 N ANION GAP (test code = GAP) 10 0-20 N GLUCOSE (test code = GLU) 162 mg/dL 70-110 H BLOOD UREA NITROGEN (test code = BUN) 33 mg/dL 7-18 H GLOMERULAR FILTRATION RATE (test code = GFR) 57.1 90-95 L Units of measure = ml/min/1.73 m2 CREATININE (test code = CREAT) 1.0 mg/dL 0.6-1.3 N TOTAL PROTEIN (test code = PROT) 6.8 g/dL 6.4-8.2 N ALBUMIN (test code = ALB) 2.90 g/dL 3.4-5.0 L CALCIUM (test code = CA) 8.3 mg/dL 8.0-10.5 N BILIRUBIN TOTAL (test code = BILT) 1.4 MG/DL <1.5 N SGOT/AST (test code = AST) 44 IUnit/L 15-37 H SGPT/ALT (test code = ALT) 41 IUnit/L 15-65 N ALKALINE PHOSPHATASE TOTAL (test code = ALKP) 445 IUnit/L 20-125 H [id number] 05:04:00* Test Item Value Reference Range Interpretation Comments MAGNESIUM (test code = MAG) 2.50 mg/dL 1.8-2.4 H COMPREHENSIVE METABOLIC [id number] 04:54:00* Test Item Value Reference Range Interpretation Comments SODIUM (test code = NA) 128 mEq/L 134-147 L POTASSIUM (test code = K) 4.2 mEq/L 3.4-5.0 N CHLORIDE (test code = CL) 90 mEq/L 100-108 L CARBON DIOXIDE (test code = CO2) 32 mEq/L 21-33 N ANION GAP (test code = GAP) 10 0-20 N GLUCOSE (test code = GLU) 162 mg/dL 70-110 H BLOOD UREA NITROGEN (test code = BUN) 33 mg/dL 7-18 H GLOMERULAR FILTRATION RATE (test code = GFR) 90-95 CREATININE (test code = CREAT) mg/dL 0.6-1.3 TOTAL PROTEIN (test code = PROT) g/dL 6.4-8.2 ALBUMIN (test code = ALB) g/dL 3.4-5.0 CALCIUM (test code = CA) 8.3 mg/dL 8.0-10.5 N BILIRUBIN TOTAL (test code = BILT) MG/DL <1.5 SGOT/AST (test code = AST) IUnit/L 15-37 SGPT/ALT (test code = ALT) IUnit/L 15-65 ALKALINE PHOSPHATASE TOTAL (test code = ALKP) IUnit/L 20-125 [id number] 04:54:00* Test Item Value Reference Range Interpretation Comments MAGNESIUM (test code = MAG) mg/dL 1.8-2.4 B-TYPE NATRIURETIC [id number] 04:53:00* Test Item Value Reference Range Interpretation Comments B-TYPE NATRIURETIC PEPTIDE (test code = BNP) 1144.4 PG/ML 0-100 H CBC W/MANUAL [id number] 04:46:00* Test Item Value Reference Range Interpretation Comments WHITE BLOOD CELL (test code = WBC) 14.61 x10 3/uL 4.5-11.0 H RED BLOOD CELL (test code = RBC) 3.43 x10 6/uL 3.54-5.02 L HEMOGLOBIN (test code = HGB) 9.8 g/dL 11.0-15.0 L HEMATOCRIT (test code = HCT) 31.7 % 33.0-45.0 L MEAN CELL VOLUME (test code = MCV) 92.4 fL 81.0-99.0 N MEAN CELL HGB (test code = MCH) 28.6 pg 27.0-33.0 N MEAN CELL HGB CONCETRATION (test code = MCHC) 30.9 g/dL 33.0-37. 0 L RED CELL DISTRIBUTION WIDTH CV (test code = RDW) 18.2 % 11.5- 14.5 H RED CELL DISTRIBUTION WIDTH SD (test code = RDW-SD) 59.7 fL 37 .0-54.0 H PLATELET COUNT (test code = PLT) 420 x10 3/uL 150-400 H MEAN PLATELET VOLUME (test code = MPV) 10.2 fL 7.0-9.0 H SEGMENTED NEUTROPHILS (test code = SEG) 82.7 % 37-69 H LYMPHOCYTE (test code = LYMPH) 8.2 % 23-55 L MONOCYTE (test code = MON) 4.6 % 0-10 N EOSINOPHIL (test code = EOS) 2.7 % 0.0-4.0 N BASOPHIL (test code = BASO) 1.8 % 0.0-2.0 N POLYCHROMASIA (test code = POLC) 1+ ANISOCYTOSIS (test code = ANISO) 1+ MICROCYTOSIS (test code = MICR) FEW MACROCYTOSIS (test code = MACR) 1+ TARGET CELLS (test code = TGT) FEW SCHISTOCYTES (test code = RAMANDEEP) FEW PLATELET ESTIMATE (test code = PLTEST) Adequate THOUSAND ADEQUATE PLATELET MORPHOLOGY (test code = PLTMORPH) LARGE PLATELETS CBC W/MANUAL [id number] 04:25:00* Test Item Value Reference Range Interpretation Comments WHITE BLOOD CELL (test code = WBC) 14.61 x10 3/uL 4.5-11.0 H RED BLOOD CELL (test code = RBC) 3.43 x10 6/uL 3.54-5.02 L HEMOGLOBIN (test code = HGB) 9.8 g/dL 11.0-15.0 L HEMATOCRIT (test code = HCT) 31.7 % 33.0-45.0 L MEAN CELL VOLUME (test code = MCV) 92.4 fL 81.0-99.0 N MEAN CELL HGB (test code = MCH) 28.6 pg 27.0-33.0 N MEAN CELL HGB CONCETRATION (test code = MCHC) 30.9 g/dL 33.0-37. 0 L RED CELL DISTRIBUTION WIDTH CV (test code = RDW) 18.2 % 11.5- 14.5 H RED CELL DISTRIBUTION WIDTH SD (test code = RDW-SD) 59.7 fL 37 .0-54.0 H PLATELET COUNT (test code = PLT) 420 x10 3/uL 150-400 H MEAN PLATELET VOLUME (test code = MPV) 10.2 fL 7.0-9.0 H ANISOCYTOSIS (test code = ANISO) PLATELET ESTIMATE (test code = PLTEST) THOUSAND ADEQUATE [id number] 21:15:00* Test Item Value Reference Range Interpretation Comments GLUBED (test code = GLUBED) 103 MG/DL 70-110 N Performed by certified cable machine operator at [facility] [id number] 16:39:00* Test Item Value Reference Range Interpretation Comments GLUBED (test code = GLUBED) 306 MG/DL 70-110 H Performed by certified cable machine operator at [facility] [id number] 11:52:00* Test Item Value Reference Range Interpretation Comments GLUBED (test code = GLUBED) 281 MG/DL 70-110 H Performed by certified cable machine operator at [facility] [id number] 07:57:00* Test Item Value Reference Range Interpretation Comments GLUBED (test code = GLUBED) 173 MG/DL 70-110 H Performed by certified cable machine operator at [facility] [id number] 07:00:00* Test Item Value Reference Range Interpretation Comments GLUBED (test code = GLUBED) 85 MG/DL 70-110 N Performed by certified cable machine operator at [facility] BASIC METABOLIC [id number] 05:57:00* Test Item Value Reference Range Interpretation Comments SODIUM (test code = NA) 129 mEq/L 134-147 L POTASSIUM (test code = K) 4.1 mEq/L 3.4-5.0 N CHLORIDE (test code = CL) 89 mEq/L 100-108 L CARBON DIOXIDE (test code = CO2) 34 mEq/L 21-33 H ANION GAP (test code = GAP) 10 0-20 N GLUCOSE (test code = GLU) 63 mg/dL 70-110 L BLOOD UREA NITROGEN (test code = BUN) 32 mg/dL 7-18 H GLOMERULAR FILTRATION RATE (test code = GFR) 51.2 90-95 L Units of measure = ml/min/1.73 m2 CREATININE (test code = CREAT) 1.1 mg/dL 0.6-1.3 N CALCIUM (test code = CA) 8.3 mg/dL 8.0-10.5 N [id number] 05:57:00* Test Item Value Reference Range Interpretation Comments PHOSPHOROUS (test code = PHOS) 2.6 MG/DL 2.5-4.9 N [id number] 05:57:00* Test Item Value Reference Range Interpretation Comments MAGNESIUM (test code = MAG) 2.20 mg/dL 1.8-2.4 N CBC W/AUTO [id number] 05:31:00* Test Item Value Reference Range Interpretation Comments WHITE BLOOD CELL (test code = WBC) 12.34 x10 3/uL 4.5-11.0 H RED BLOOD CELL (test code = RBC) 3.69 x10 6/uL 3.54-5.02 N HEMOGLOBIN (test code = HGB) 10.6 g/dL 11.0-15.0 L HEMATOCRIT (test code = HCT) 34.2 % 33.0-45.0 N MEAN CELL VOLUME (test code = MCV) 92.7 fL 81.0-99.0 N MEAN CELL HGB (test code = MCH) 28.7 pg 27.0-33.0 N MEAN CELL HGB CONCETRATION (test code = MCHC) 31.0 g/dL 33.0-37. 0 L RED CELL DISTRIBUTION WIDTH CV (test code = RDW) 18.4 % 11.5- 14.5 H RED CELL DISTRIBUTION WIDTH SD (test code = RDW-SD) 58.2 fL 37 .0-54.0 H PLATELET COUNT (test code = PLT) 406 x10 3/uL 150-400 H MEAN PLATELET VOLUME (test code = MPV) 10.7 fL 7.0-9.0 H NEUTROPHIL % (test code = NT%) 69.1 % 56.0-77.0 N IMMATURE GRANULOCYTE % (test code = IG%) 0.6 % 0.0-2.0 N LYMPHOCYTE % (test code = LY%) 18.7 % 14.0-32.0 N MONOCYTE % (test code = MO%) 7.5 % 4.8-9.0 N EOSINOPHIL % (test code = EO%) 3.4 % 0.3-3.7 N BASOPHIL % (test code = BA%) 0.7 % 0.0-2.0 N NUCLEATED RBC % (test code = NRBC%) 0.2 % 0-0 H NEUTROPHIL # (test code = NT#) 8.51 x10 3/uL 2.0-7.6 H IMMATURE GRANULOCYTE # (test code = IG#) 0.08 x10 3/uL 0.00-0.03 H LYMPHOCYTE # (test code = LY#) 2.31 x10 3/uL 1.0-3.8 N MONOCYTE # (test code = MO#) 0.93 x10 3/uL 0.1-0.8 H EOSINOPHIL # (test code = EO#) 0.42 x10 3/uL 0.0-0.2 H BASOPHIL # (test code = BA#) 0.09 x10 3/uL 0.0-0.2 N NUCLEATED RBC # (test code = NRBC#) 0.02 x10 3/uL 0.0-0.1 N MANUAL DIFF REQUIRED (test code = MDIFF) NO [id number] 04:28:00* Test Item Value Reference Range Interpretation Comments GLUBED (test code = GLUBED) 67 MG/DL 70-110 L Performed by certified cable machine operator at [facility] [id number] 00:35:00* Test Item Value Reference Range Interpretation Comments GLUBED (test code = GLUBED) 142 MG/DL 70-110 H Performed by certified cable machine operator at [facility] [id number] 19:59:00* Test Item Value Reference Range Interpretation Comments GLUBED (test code = GLUBED) 177 MG/DL 70-110 H Performed by certified cable machine operator at [facility] [id number] 19:17:00* Test Item Value Reference Range Interpretation Comments GLUBED (test code = GLUBED) 197 MG/DL 70-110 H Performed by certified cable machine operator at [facility] [id number] 11:47:00* Test Item Value Reference Range Interpretation Comments GLUBED (test code = GLUBED) 215 MG/DL 70-110 H Performed by certified cable machine operator at [facility] [id number] 08:40:00* Test Item Value Reference Range Interpretation Comments GLUBED (test code = GLUBED) 37 MG/DL 70-110 L Performed by certified cable machine operator at [facility] [id number] 08:40:00* Test Item Value Reference Range Interpretation Comments GLUBED (test code = GLUBED) 26 MG/DL 70-110 L Performed by certified cable machine operator at [facility] [id number] 08:40:00* Test Item Value Reference Range Interpretation Comments GLUBED (test code = GLUBED) 24 MG/DL 70-110 L Performed by certified cable machine operator at [facility] [id number] 08:40:00* Test Item Value Reference Range Interpretation Comments GLUBED (test code = GLUBED) 26 MG/DL 70-110 L Performed by certified cable machine operator at [facility] [id number] 07:59:00* Test Item Value Reference Range Interpretation Comments GLUBED (test code = GLUBED) 150 MG/DL 70-110 H Performed by certified cable machine operator at [facility] [id number] 07:04:00* Test Item Value Reference Range Interpretation Comments GLUBED (test code = GLUBED) 172 MG/DL 70-110 H Performed by certified cable machine operator at [facility] [id number] 07:04:00* Test Item Value Reference Range Interpretation Comments GLUBED (test code = GLUBED) 304 MG/DL 70-110 H Performed by certified cable machine operator at [facility] BASIC METABOLIC [id number] 05:00:00* Test Item Value Reference Range Interpretation Comments SODIUM (test code = NA) 125 mEq/L 134-147 L POTASSIUM (test code = K) 3.6 mEq/L 3.4-5.0 N CHLORIDE (test code = CL) 84 mEq/L 100-108 L CARBON DIOXIDE (test code = CO2) 33 mEq/L 21-33 N ANION GAP (test code = GAP) 12 0-20 N GLUCOSE (test code = GLU) 291 mg/dL 70-110 H BLOOD UREA NITROGEN (test code = BUN) 34 mg/dL 7-18 H GLOMERULAR FILTRATION RATE (test code = GFR) 46.3 90-95 L Units of measure = ml/min/1.73 m2 CREATININE (test code = CREAT) 1.2 mg/dL 0.6-1.3 N CALCIUM (test code = CA) 7.9 mg/dL 8.0-10.5 L HEPATIC FUNCTION [id number] 05:00:00* Test Item Value Reference Range Interpretation Comments TOTAL PROTEIN (test code = PROT) 6.7 g/dL 6.4-8.2 N ALBUMIN (test code = ALB) 3.00 g/dL 3.4-5.0 L BILIRUBIN TOTAL (test code = BILT) 1.5 MG/DL <1.5 H BILIRUBIN DIRECT (test code = BILD) 0.60 MG/DL 0.0-0.30 H BILIRUBIN INDIRECT (test code = BILIND) 0.90 MG/DL SGOT/AST (test code = AST) 20 IUnit/L 15-37 N SGPT/ALT (test code = ALT) 43 IUnit/L 15-65 N ALKALINE PHOSPHATASE TOTAL (test code = ALKP) 471 IUnit/L 20-125 H [id number] 05:00:00* Test Item Value Reference Range Interpretation Comments MAGNESIUM (test code = MAG) 2.10 mg/dL 1.8-2.4 N BASIC METABOLIC [id number] 04:54:00* Test Item Value Reference Range Interpretation Comments SODIUM (test code = NA) 125 mEq/L 134-147 L POTASSIUM (test code = K) 3.6 mEq/L 3.4-5.0 N CHLORIDE (test code = CL) 84 mEq/L 100-108 L CARBON DIOXIDE (test code = CO2) 33 mEq/L 21-33 N ANION GAP (test code = GAP) 12 0-20 N GLUCOSE (test code = GLU) 291 mg/dL 70-110 H BLOOD UREA NITROGEN (test code = BUN) 34 mg/dL 7-18 H GLOMERULAR FILTRATION RATE (test code = GFR) 90-95 CREATININE (test code = CREAT) mg/dL 0.6-1.3 CALCIUM (test code = CA) 7.9 mg/dL 8.0-10.5 L HEPATIC FUNCTION [id number] 04:54:00* Test Item Value Reference Range Interpretation Comments TOTAL PROTEIN (test code = PROT) g/dL 6.4-8.2 ALBUMIN (test code = ALB) g/dL 3.4-5.0 BILIRUBIN TOTAL (test code = BILT) MG/DL <1.5 BILIRUBIN DIRECT (test code = BILD) MG/DL 0.0-0.30 SGOT/AST (test code = AST) IUnit/L 15-37 SGPT/ALT (test code = ALT) IUnit/L 15-65 ALKALINE PHOSPHATASE TOTAL (test code = ALKP) IUnit/L 20-125 [id number] 04:54:00* Test Item Value Reference Range Interpretation Comments MAGNESIUM (test code = MAG) mg/dL 1.8-2.4 CBC W/AUTO [id number] 04:46:00* Test Item Value Reference Range Interpretation Comments WHITE BLOOD CELL (test code = WBC) 12.53 x10 3/uL 4.5-11.0 H RED BLOOD CELL (test code = RBC) 3.49 x10 6/uL 3.54-5.02 L HEMOGLOBIN (test code = HGB) 10.1 g/dL 11.0-15.0 L HEMATOCRIT (test code = HCT) 31.5 % 33.0-45.0 L MEAN CELL VOLUME (test code = MCV) 90.3 fL 81.0-99.0 N MEAN CELL HGB (test code = MCH) 28.9 pg 27.0-33.0 N MEAN CELL HGB CONCETRATION (test code = MCHC) 32.1 g/dL 33.0-37. 0 L RED CELL DISTRIBUTION WIDTH CV (test code = RDW) 17.3 % 11.5- 14.5 H RED CELL DISTRIBUTION WIDTH SD (test code = RDW-SD) 53.7 fL 37 .0-54.0 N PLATELET COUNT (test code = PLT) 361 x10 3/uL 150-400 N MEAN PLATELET VOLUME (test code = MPV) 11.0 fL 7.0-9.0 H NEUTROPHIL % (test code = NT%) 78.3 % 56.0-77.0 H IMMATURE GRANULOCYTE % (test code = IG%) 1.2 % 0.0-2.0 N LYMPHOCYTE % (test code = LY%) 12.5 % 14.0-32.0 L MONOCYTE % (test code = MO%) 5.9 % 4.8-9.0 N EOSINOPHIL % (test code = EO%) 1.7 % 0.3-3.7 N BASOPHIL % (test code = BA%) 0.4 % 0.0-2.0 N NUCLEATED RBC % (test code = NRBC%) 0.0 % 0-0 N NEUTROPHIL # (test code = NT#) 9.81 x10 3/uL 2.0-7.6 H IMMATURE GRANULOCYTE # (test code = IG#) 0.15 x10 3/uL 0.00-0.03 H LYMPHOCYTE # (test code = LY#) 1.57 x10 3/uL 1.0-3.8 N MONOCYTE # (test code = MO#) 0.74 x10 3/uL 0.1-0.8 N EOSINOPHIL # (test code = EO#) 0.21 x10 3/uL 0.0-0.2 H BASOPHIL # (test code = BA#) 0.05 x10 3/uL 0.0-0.2 N NUCLEATED RBC # (test code = NRBC#) 0.00 x10 3/uL 0.0-0.1 N MANUAL DIFF REQUIRED (test code = MDIFF) NO [id number] 02:21:00* Test Item Value Reference Range Interpretation Comments GLUBED (test code = GLUBED) 346 MG/DL 70-110 H Performed by certified cable machine operator at [facility] [id number] 20:53:00* Test Item Value Reference Range Interpretation Comments GLUBED (test code = GLUBED) 160 MG/DL 70-110 H Performed by certified cable machine operator at [facility] [id number] 18:07:00* Test Item Value Reference Range Interpretation Comments GLUBED (test code = GLUBED) 75 MG/DL 70-110 N Performed by certified cable machine operator at [facility] [id number] 18:07:00* Test Item Value Reference Range Interpretation Comments GLUBED (test code = GLUBED) 49 MG/DL 70-110 L Performed by certified cable machine operator at [facility] [id number] 14:52:00* Test Item Value Reference Range Interpretation Comments GLUBED (test code = GLUBED) 86 MG/DL 70-110 N Performed by certified cable machine operator at [facility] [id number] 11:53:00* Test Item Value Reference Range Interpretation Comments GLUBED (test code = GLUBED) 247 MG/DL 70-110 H Performed by certified cable machine operator at [facility] [id number] 09:35:00* Test Item Value Reference Range Interpretation Comments GLUBED (test code = GLUBED) 315 MG/DL 70-110 H Performed by certified cable machine operator at [facility] [id number] 08:05:00* Test Item Value Reference Range Interpretation Comments GLUBED (test code = GLUBED) 275 MG/DL 70-110 H Performed by certified cable machine operator at [facility] [id number] 07:11:00* Test Item Value Reference Range Interpretation Comments MAGNESIUM (test code = MAG) 2.10 mg/dL 1.8-2.4 N COMMENTS: please add to am [id number] 07:05:00* Test Item Value Reference Range Interpretation Comments GLUBED (test code = GLUBED) 217 MG/DL 70-110 H Performed by certified cable machine operator at [facility] [id number] 07:05:00* Test Item Value Reference Range Interpretation Comments GLUBED (test code = GLUBED) 151 MG/DL 70-110 H Performed by certified cable machine operator at [facility] [id number] 07:05:00* Test Item Value Reference Range Interpretation Comments GLUBED (test code = GLUBED) 466 MG/DL 70-110 H Performed by certified cable machine operator at [facility] [id number] 07:05:00* Test Item Value Reference Range Interpretation Comments GLUBED (test code = GLUBED) 561 MG/DL 70-110 H Performed by certified cable machine operator at [facility] [id number] 06:57:00* Test Item Value Reference Range Interpretation Comments GLUBED (test code = GLUBED) 262 MG/DL 70-110 H Performed by certified cable machine operator at [facility] - XR CHEST 1 [id number] 05:48:00 FAX: Cory Flores NP [place]: St: ADM FAX: Santi De León MD [phone] FAX: Marvel Donato I [phone] FAX: Dennys Newell DO [phone] Name: MAMIEVANDA HANSEN [facility] : 1960 Age/S: 58/F [address] [place] [address] Unit #: [id number] Loc: G.[address] [place] [address], [place] [address] Phys: Cory Flores NP Acct: [id number] Dis Date: Status: ADM IN PHONE #: [phone] Exam D ate: 06/07/2019 0526 FAX #: [phone] Reason: s /p CABG EXAMS: CPT CODE: [id number] XR CHEST 1 V 32579 Study: - XR CHEST 1 V 06/07/2019 5:00 AM Patient Name: VANDA HATCH MR: [id number] : 1960; Age: 58 years y/o Female Ordering Physician: Cory Flores NP Clinical Indication: s/p CABG Comparison: 06/06/2019 FINDINGS LUNGS: Hypoinflation associated with central pulmonary vascular congestion, hazy bilateral basilar opacities, and small bilateral pleural effusions consistent with pulmonary edema or pneumonia. HEART AND MEDIASTINUM: Stable mild cardiomegaly status post median sternotomy. LINES: Right internal jugular central venous catheter tip overlying the proximal SVC. OSSEOUS STRUCTURES: No f racture, dislocation, or suspicious focal osseous lesion. OT HER: None. IMPRESSION: Hypoinflation a ssociated with central pulmonary vascular congestion, hazy bilateral bas ilar opacities, and small bilateral pleural effusions consistent with pu lmonary edema or pneumonia. Stable mild cardiomegaly status po st median sternotomy. 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 : 1960 Age/S: 58 /F [address] [place], [place] [address]vd Unit #: [id number] Loc: G.[address] [place] [address] Phys: Cory Flores NP Acct: [id number] Dis Date: St atus: ADM IN PHONE #: [phone] Exam Date : 06/07/2019525 FAX #: [phone] Reason: s/p CABG EXAMS: CPT CODE: [id number] XR CHEST 1 V 04790 <Continued> at 0548 Reported and signed by: Matt Ortiz M.D. CC: Cory Flores NP; Santi Cortés MD; Marvel Espinosa MD; Dennys Aguilar DO Technologist: Kulwinder Layton RT(R) Trnscrd Date/Time/By: 06/07/2019 (0548) : By: [email or web address] Orig Print D/T: S: 06/07/2019 (0555) PAGE 2 Signed Report COMPREHENSIVE METABOLIC PANEL 2019-06-07 04:52:00* Test Item Value Reference Range Interpretation Comments SODIUM (test code = NA) 126 mEq/L 134-147 L POTASSIUM (test code = K) 3.3 mEq/L 3.4-5.0 L CHLORIDE (test code = CL) 86 mEq/L 100-108 L CARBON DIOXIDE (test code = CO2) 33 mEq/L 21-33 N ANION GAP (test code = GAP) 10 0-20 N GLUCOSE (test code = GLU) 202 mg/dL 70-110 H BLOOD UREA NITROGEN (test code = BUN) 35 mg/dL 7-18 H GLOMERULAR FILTRATION RATE (test code = GFR) 57.1 90-95 L Units of measure = ml/min/1.73 m2 CREATININE (test code = CREAT) 1.0 mg/dL 0.6-1.3 N TOTAL PROTEIN (test code = PROT) 6.9 g/dL 6.4-8.2 N ALBUMIN (test code = ALB) 3.20 g/dL 3.4-5.0 L CALCIUM (test code = CA) 8.2 mg/dL 8.0-10.5 N BILIRUBIN TOTAL (test code = BILT) 1.5 MG/DL <1.5 H SGOT/AST (test code = AST) 27 IUnit/L 15-37 N SGPT/ALT (test code = ALT) 54 IUnit/L 15-65 N ALKALINE PHOSPHATASE TOTAL (test code = ALKP) 571 IUnit/L 20-125 H HEPATIC FUNCTION [id number] 04:52:00* Test Item Value Reference Range Interpretation Comments BILIRUBIN DIRECT (test code = BILD) 0.70 MG/DL 0.0-0.30 H BILIRUBIN INDIRECT (test code = BILIND) 0.80 MG/DL COMPREHENSIVE METABOLIC [id number] 04:47:00* Test Item Value Reference Range Interpretation Comments SODIUM (test code = NA) 126 mEq/L 134-147 L POTASSIUM (test code = K) 3.3 mEq/L 3.4-5.0 L CHLORIDE (test code = CL) 86 mEq/L 100-108 L CARBON DIOXIDE (test code = CO2) 33 mEq/L 21-33 N ANION GAP (test code = GAP) 10 0-20 N GLUCOSE (test code = GLU) 202 mg/dL 70-110 H BLOOD UREA NITROGEN (test code = BUN) 35 mg/dL 7-18 H GLOMERULAR FILTRATION RATE (test code = GFR) 90-95 CREATININE (test code = CREAT) mg/dL 0.6-1.3 TOTAL PROTEIN (test code = PROT) g/dL 6.4-8.2 ALBUMIN (test code = ALB) g/dL 3.4-5.0 CALCIUM (test code = CA) 8.2 mg/dL 8.0-10.5 N BILIRUBIN TOTAL (test code = BILT) MG/DL <1.5 SGOT/AST (test code = AST) IUnit/L 15-37 SGPT/ALT (test code = ALT) IUnit/L 15-65 ALKALINE PHOSPHATASE TOTAL (test code = ALKP) IUnit/L 20-125 HEPATIC FUNCTION [id number] 04:47:00* Test Item Value Reference Range Interpretation Comments BILIRUBIN DIRECT (test code = BILD) MG/DL 0.0-0.30 CBC W/AUTO [id number] 04:40:00* Test Item Value Reference Range Interpretation Comments WHITE BLOOD CELL (test code = WBC) 14.23 x10 3/uL 4.5-11.0 H RED BLOOD CELL (test code = RBC) 3.70 x10 6/uL 3.54-5.02 N HEMOGLOBIN (test code = HGB) 10.5 g/dL 11.0-15.0 L HEMATOCRIT (test code = HCT) 33.1 % 33.0-45.0 N MEAN CELL VOLUME (test code = MCV) 89.5 fL 81.0-99.0 N MEAN CELL HGB (test code = MCH) 28.4 pg 27.0-33.0 N MEAN CELL HGB CONCETRATION (test code = MCHC) 31.7 g/dL 33.0-37. 0 L RED CELL DISTRIBUTION WIDTH CV (test code = RDW) 16.8 % 11.5- 14.5 H RED CELL DISTRIBUTION WIDTH SD (test code = RDW-SD) 51.8 fL 37 .0-54.0 N PLATELET COUNT (test code = PLT) 355 x10 3/uL 150-400 N MEAN PLATELET VOLUME (test code = MPV) 10.7 fL 7.0-9.0 H NEUTROPHIL % (test code = NT%) 74.3 % 56.0-77.0 N IMMATURE GRANULOCYTE % (test code = IG%) 2.5 % 0.0-2.0 H LYMPHOCYTE % (test code = LY%) 13.8 % 14.0-32.0 L MONOCYTE % (test code = MO%) 7.4 % 4.8-9.0 N EOSINOPHIL % (test code = EO%) 1.6 % 0.3-3.7 N BASOPHIL % (test code = BA%) 0.4 % 0.0-2.0 N NUCLEATED RBC % (test code = NRBC%) 0.3 % 0-0 H NEUTROPHIL # (test code = NT#) 10.56 x10 3/uL 2.0-7.6 H IMMATURE GRANULOCYTE # (test code = IG#) 0.35 x10 3/uL 0.00-0.03 H LYMPHOCYTE # (test code = LY#) 1.97 x10 3/uL 1.0-3.8 N MONOCYTE # (test code = MO#) 1.06 x10 3/uL 0.1-0.8 H EOSINOPHIL # (test code = EO#) 0.23 x10 3/uL 0.0-0.2 H BASOPHIL # (test code = BA#) 0.06 x10 3/uL 0.0-0.2 N NUCLEATED RBC # (test code = NRBC#) 0.04 x10 3/uL 0.0-0.1 N MANUAL DIFF REQUIRED (test code = MDIFF) NO [id number] 04:40:00* Test Item Value Reference Range Interpretation Comments GLUBED (test code = GLUBED) 56 MG/DL 70-110 L Performed by certified cable machine operator at [facility] [id number] 00:57:00* Test Item Value Reference Range Interpretation Comments GLUBED (test code = GLUBED) 223 MG/DL 70-110 H Performed by certified cable machine operator at [facility] [id number] 22:40:00* Test Item Value Reference Range Interpretation Comments GLUBED (test code = GLUBED) 87 MG/DL 70-110 N Performed by certified cable machine operator at [facility] [id number] 20:21:00* Test Item Value Reference Range Interpretation Comments GLUBED (test code = GLUBED) 65 MG/DL 70-110 L Performed by certified cable machine operator at [facility] [id number] 07:58:00* Test Item Value Reference Range Interpretation Comments GLUBED (test code = GLUBED) 296 MG/DL 70-110 H Performed by certified cable machine operator at [facility] - XR CHEST 1 [id number] 05:55:00 FAX: Cory Flores NP [place]: St: ADM FAX: Santi De León MD [phone] FAX: Marvel Donato I [phone] FAX: Dennys Newell DO [phone] Name: VANDA HATCH [facility] : 1960 Age/S: 58/F [address] [place] [address] Unit #: [id number] Loc: G.[address] [place] [address] Phys: Cory Flores NP Acct: [id number] Dis Date: Status: ADM IN PHONE #: [phone] Exam D ate: 06/06/2019530 FAX #: [phone] Reason: s /p CABG EXAMS: CPT CODE: [id number] XR CHEST 1 V 85908 Study: - XR CHEST 1 V 06/06/2019 5:00 AM Patient Name: VANDA HATCH MR: [id number] : 1960; Age: 58 years y/o Female Ordering Physician: Cory Flores NP Clinical Indication: s/p CABG Comparison: 06/05/2019 FINDINGS LUNGS: Mildly decreasing pulmonary inflation associated with increasing central pulmonary vascular congestion and perihilar opacities suspicious for pulmonary edema. Small dependent bilateral pleural effusions are also suspected. No pneumothorax. HEART AND MEDIASTINUM: Stable mild cardiomegaly status post coronary artery bypass grafting. LINES: None. OSSEOUS STRUCTURES: No fract ure, dislocation, or suspicious focal osseous lesion. OTHER: None. IMPRESSION: Mildly decreasing p ulmonary inflation associated with increasing central pulmonary vascular congestion and perihilar opacities suspicious for pulmonary edema. Suspect small dependent bilateral pleural effusions. Stable mild cardiomegaly status post coronary artery bypass grafting. 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 CC: Cory Flores NP; Santi Cortés MD; Marvel Espinosa MD; Dennys Aguilar DO Technologist: RT Addy(Ramírez) Trnscrd Date/Time/By: 06/06/2019 (0555) : By: [email or web address] Orig Print D/T: S: 06/06/2019 (0520) PAGE 2 Signed Report COMPREHENSIVE METABOLIC [id number] 05:16:00* Test Item Value Reference Range Interpretation Comments SODIUM (test code = NA) 125 mEq/L 134-147 L POTASSIUM (test code = K) 3.3 mEq/L 3.4-5.0 L CHLORIDE (test code = CL) 84 mEq/L 100-108 L CARBON DIOXIDE (test code = CO2) 34 mEq/L 21-33 H ANION GAP (test code = GAP) 10 0-20 N GLUCOSE (test code = GLU) 259 mg/dL 70-110 H BLOOD UREA NITROGEN (test code = BUN) 31 mg/dL 7-18 H GLOMERULAR FILTRATION RATE (test code = GFR) 73.9 90-95 L Units of measure = ml/min/1.73 m2 CREATININE (test code = CREAT) 0.8 mg/dL 0.6-1.3 TOTAL PROTEIN (test code = PROT) 6.8 g/dL 6.4-8.2 N ALBUMIN (test code = ALB) 3.10 g/dL 3.4-5.0 L CALCIUM (test code = CA) 8.4 mg/dL 8.0-10.5 N BILIRUBIN TOTAL (test code = BILT) 2.1 MG/DL <1.5 H SGOT/AST (test code = AST) 38 IUnit/L 15-37 H SGPT/ALT (test code = ALT) 68 IUnit/L 15-65 H ALKALINE PHOSPHATASE TOTAL (test code = ALKP) 547 IUnit/L 20-125 H HEPATIC FUNCTION [id number] 05:16:00* Test Item Value Reference Range Interpretation Comments BILIRUBIN DIRECT (test code = BILD) 0.70 MG/DL 0.0-0.30 H BILIRUBIN INDIRECT (test code = BILIND) 1.40 MG/DL COMPREHENSIVE METABOLIC [id number] 05:10:00* Test Item Value Reference Range Interpretation Comments SODIUM (test code = NA) 125 mEq/L 134-147 L POTASSIUM (test code = K) 3.3 mEq/L 3.4-5.0 L CHLORIDE (test code = CL) 84 mEq/L 100-108 L CARBON DIOXIDE (test code = CO2) 34 mEq/L 21-33 H ANION GAP (test code = GAP) 10 0-20 N GLUCOSE (test code = GLU) 259 mg/dL 70-110 H BLOOD UREA NITROGEN (test code = BUN) 31 mg/dL 7-18 H GLOMERULAR FILTRATION RATE (test code = GFR) 90-95 CREATININE (test code = CREAT) mg/dL 0.6-1.3 TOTAL PROTEIN (test code = PROT) g/dL 6.4-8.2 ALBUMIN (test code = ALB) g/dL 3.4-5.0 CALCIUM (test code = CA) 8.4 mg/dL 8.0-10.5 N BILIRUBIN TOTAL (test code = BILT) MG/DL <1.5 SGOT/AST (test code = AST) IUnit/L 15-37 SGPT/ALT (test code = ALT) IUnit/L 15-65 ALKALINE PHOSPHATASE TOTAL (test code = ALKP) IUnit/L 20-125 HEPATIC FUNCTION [id number] 05:10:00* Test Item Value Reference Range Interpretation Comments BILIRUBIN DIRECT (test code = BILD) MG/DL 0.0-0.30 CBC W/AUTO [id number] 04:58:00* Test Item Value Reference Range Interpretation Comments WHITE BLOOD CELL (test code = WBC) 12.01 x10 3/uL 4.5-11.0 H RED BLOOD CELL (test code = RBC) 3.59 x10 6/uL 3.54-5.02 N HEMOGLOBIN (test code = HGB) 10.3 g/dL 11.0-15.0 L HEMATOCRIT (test code = HCT) 32.1 % 33.0-45.0 L MEAN CELL VOLUME (test code = MCV) 89.4 fL 81.0-99.0 N MEAN CELL HGB (test code = MCH) 28.7 pg 27.0-33.0 N MEAN CELL HGB CONCETRATION (test code = MCHC) 32.1 g/dL 33.0-37. 0 L RED CELL DISTRIBUTION WIDTH CV (test code = RDW) 16.4 % 11.5- 14.5 H RED CELL DISTRIBUTION WIDTH SD (test code = RDW-SD) 50.9 fL 37 .0-54.0 N PLATELET COUNT (test code = PLT) 328 x10 3/uL 150-400 N MEAN PLATELET VOLUME (test code = MPV) 10.9 fL 7.0-9.0 H NEUTROPHIL % (test code = NT%) 76.9 % 56.0-77.0 N IMMATURE GRANULOCYTE % (test code = IG%) 2.2 % 0.0-2.0 H LYMPHOCYTE % (test code = LY%) 13.0 % 14.0-32.0 L MONOCYTE % (test code = MO%) 6.1 % 4.8-9.0 N EOSINOPHIL % (test code = EO%) 1.3 % 0.3-3.7 N BASOPHIL % (test code = BA%) 0.5 % 0.0-2.0 N NUCLEATED RBC % (test code = NRBC%) 0.6 % 0-0 H NEUTROPHIL # (test code = NT#) 9.23 x10 3/uL 2.0-7.6 H IMMATURE GRANULOCYTE # (test code = IG#) 0.27 x10 3/uL 0.00-0.03 H LYMPHOCYTE # (test code = LY#) 1.56 x10 3/uL 1.0-3.8 N MONOCYTE # (test code = MO#) 0.73 x10 3/uL 0.1-0.8 N EOSINOPHIL # (test code = EO#) 0.16 x10 3/uL 0.0-0.2 N BASOPHIL # (test code = BA#) 0.06 x10 3/uL 0.0-0.2 N NUCLEATED RBC # (test code = NRBC#) 0.07 x10 3/uL 0.0-0.1 N MANUAL DIFF REQUIRED (test code = MDIFF) NO [id number] 00:25:00* Test Item Value Reference Range Interpretation Comments GLUBED (test code = GLUBED) 290 MG/DL 70-110 H Performed by certified cable machine operator at [facility] [id number] 20:21:00* Test Item Value Reference Range Interpretation Comments GLUBED (test code = GLUBED) 314 MG/DL 70-110 H Performed by certified cable machine operator at [facility] BASIC METABOLIC [id number] 17:30:00* Test Item Value Reference Range Interpretation Comments SODIUM (test code = NA) 122 mEq/L 134-147 LL POTASSIUM (test code = K) 4.8 mEq/L 3.4-5.0 N CHLORIDE (test code = CL) 85 mEq/L 100-108 L CARBON DIOXIDE (test code = CO2) 34 mEq/L 21-33 H ANION GAP (test code = GAP) 8 0-20 N GLUCOSE (test code = GLU) 308 mg/dL 70-110 H BLOOD UREA NITROGEN (test code = BUN) 37 mg/dL 7-18 H GLOMERULAR FILTRATION RATE (test code = GFR) 51.2 90-95 L Units of measure = ml/min/1.73 m2 CREATININE (test code = CREAT) 1.1 mg/dL 0.6-1.3 N CALCIUM (test code = CA) 8.6 mg/dL 8.0-10.5 N [id number] 17:30:00* Test Item Value Reference Range Interpretation Comments PHOSPHOROUS (test code = PHOS) 3.7 MG/DL 2.5-4.9 N CBC W/AUTO [id number] 17:16:00* Test Item Value Reference Range Interpretation Comments WHITE BLOOD CELL (test code = WBC) 13.72 x10 3/uL 4.5-11.0 H RED BLOOD CELL (test code = RBC) 3.43 x10 6/uL 3.54-5.02 L HEMOGLOBIN (test code = HGB) 9.8 g/dL 11.0-15.0 L HEMATOCRIT (test code = HCT) 31.1 % 33.0-45.0 L MEAN CELL VOLUME (test code = MCV) 90.7 fL 81.0-99.0 N MEAN CELL HGB (test code = MCH) 28.6 pg 27.0-33.0 N MEAN CELL HGB CONCETRATION (test code = MCHC) 31.5 g/dL 33.0-37. 0 L RED CELL DISTRIBUTION WIDTH CV (test code = RDW) 17.1 % 11.5- 14.5 H RED CELL DISTRIBUTION WIDTH SD (test code = RDW-SD) 53.6 fL 37 .0-54.0 N PLATELET COUNT (test code = PLT) 307 x10 3/uL 150-400 N MEAN PLATELET VOLUME (test code = MPV) 11.4 fL 7.0-9.0 H NEUTROPHIL % (test code = NT%) 74.6 % 56.0-77.0 N IMMATURE GRANULOCYTE % (test code = IG%) 3.5 % 0.0-2.0 H LYMPHOCYTE % (test code = LY%) 14.4 % 14.0-32.0 N MONOCYTE % (test code = MO%) 6.2 % 4.8-9.0 N EOSINOPHIL % (test code = EO%) 0.9 % 0.3-3.7 N BASOPHIL % (test code = BA%) 0.4 % 0.0-2.0 N NUCLEATED RBC % (test code = NRBC%) 0.8 % 0-0 H NEUTROPHIL # (test code = NT#) 10.22 x10 3/uL 2.0-7.6 H IMMATURE GRANULOCYTE # (test code = IG#) 0.48 x10 3/uL 0.00-0.03 H LYMPHOCYTE # (test code = LY#) 1.98 x10 3/uL 1.0-3.8 N MONOCYTE # (test code = MO#) 0.85 x10 3/uL 0.1-0.8 H EOSINOPHIL # (test code = EO#) 0.13 x10 3/uL 0.0-0.2 N BASOPHIL # (test code = BA#) 0.06 x10 3/uL 0.0-0.2 N NUCLEATED RBC # (test code = NRBC#) 0.11 x10 3/uL 0.0-0.1 H MANUAL DIFF REQUIRED (test code = MDIFF) NO [id number] 14:23:00* Test Item Value Reference Range Interpretation Comments GLUBED (test code = GLUBED) 33 MG/DL 70-110 L Performed by certified cable machine operator at [facility] [id number] 14:23:00* Test Item Value Reference Range Interpretation Comments GLUBED (test code = GLUBED) 33 MG/DL 70-110 L Performed by certified cable machine operator at [facility] [id number] 13:00:00* Test Item Value Reference Range Interpretation Comments GLUBED (test code = GLUBED) 120 MG/DL 70-110 H Performed by certified cable machine operator at [facility] [id number] 13:00:00* Test Item Value Reference Range Interpretation Comments GLUBED (test code = GLUBED) 86 MG/DL 70-110 N Performed by certified cable machine operator at [facility] [id number] 08:56:00* Test Item Value Reference Range Interpretation Comments GLUBED (test code = GLUBED) 103 MG/DL 70-110 N Performed by certified cable machine operator at [facility] [id number] 07:44:00* Test Item Value Reference Range Interpretation Comments GLUBED (test code = GLUBED) 284 MG/DL 70-110 H Performed by certified cable machine operator at [facility] [id number] 07:43:00* Test Item Value Reference Range Interpretation Comments GLUBED (test code = GLUBED) 38 MG/DL 70-110 L Performed by certified cable machine operator at [facility] [id number] 07:43:00* Test Item Value Reference Range Interpretation Comments GLUBED (test code = GLUBED) 19 MG/DL 70-110 L Performed by certified cable machine operator at [facility] [id number] 07:43:00* Test Item Value Reference Range Interpretation Comments GLUBED (test code = GLUBED) 61 MG/DL 70-110 L Performed by certified cable machine operator at [facility] - XR CHEST 1 [id number] 06:54:00 FAX: Cory Flores [place]: St: ADM FAX: Santi De León MD [phone] FAX: Marvel Donato I [phone] FAX: Dennys Newell DO [phone] Name: VANDA HATCH [facility] [place] : 1960 Age/S: 58/F [address] [place] [address] Unit #: [id number] Loc: G.[address] [place] [address] Phys: Cory Flores NP Acct: [id number] Dis Date: Status: ADM IN PHONE #: [phone] Exam D ate: 06/05/2019 0508 FAX #: [phone] Reason: s /p CABG EXAMS: CPT CODE: [id number] XR CHEST 1 V 59108 EXAM: CR, XR 06/05/2019, 0441 hours HISTORY: s/p CABG TECHNIQUE: 1 view of the chest. COMPARISON: 06/04/2019, 0603 hours FINDINGS: Trachea is midline. Right IJ venous catheter is stable. Cardiomediastinal silhouett e and osseous structures are stable. There is no airspace consolidation, p leural effusion or pneumothorax. Bilateral lower lobe opacities, worse in the left with small left pleural effusion, slightly worsened. IMPRESSION: 1. Bilateral lower lobe opacities, worse in the left with small left pleural effusion, slightly worsened. SL: [JSYED-H] at 0654 Reported and signed by: Marcelino joshi M.D. CC: Cory Flores NP; Santi Cortés MD; Marvel kemp MD; Dennys Aguilar DO Technologist: Kulwinder Layton RT(R) Trnscrd Date/Time/By: 06/05/2019 (0614) : By: [email or web address] Orig Print D/T: S: (7030) PAGE 1 Signed Rep ort CBC W/AUTO [id number] 05:11:00* Test Item Value Reference Range Interpretation Comments WHITE BLOOD CELL (test code = WBC) 16.48 x10 3/uL 4.5-11.0 H RED BLOOD CELL (test code = RBC) 2.54 x10 6/uL 3.54-5.02 L HEMOGLOBIN (test code = HGB) 7.0 g/dL 11.0-15.0 L HEMATOCRIT (test code = HCT) 23.2 % 33.0-45.0 L MEAN CELL VOLUME (test code = MCV) 91.3 fL 81.0-99.0 N MEAN CELL HGB (test code = MCH) 27.6 pg 27.0-33.0 N MEAN CELL HGB CONCETRATION (test code = MCHC) 30.2 g/dL 33.0-37. 0 L RED CELL DISTRIBUTION WIDTH CV (test code = RDW) 17.2 % 11.5- 14.5 H RED CELL DISTRIBUTION WIDTH SD (test code = RDW-SD) 54.8 fL 37 .0-54.0 H PLATELET COUNT (test code = PLT) 303 x10 3/uL 150-400 N MEAN PLATELET VOLUME (test code = MPV) 11.6 fL 7.0-9.0 H MANUAL DIFF REQUIRED (test code = MDIFF) YES WBC [id number] 05:11:00* Test Item Value Reference Range Interpretation Comments SEGMENTED NEUTROPHILS (test code = SEG) 73.6 % 37-69 H LYMPHOCYTE (test code = LYMPH) 18.2 % 23-55 L MONOCYTE (test code = MON) 4.6 % 0-10 N BASOPHIL (test code = BASO) 0.9 % 0.0-2.0 N MYELOCYTE (test code = MYELO) 2.7 % 0.0-0.0 H NUCLEATED RED BLOOD CELL (test code = NRBC) 1.8 % POLYCHROMASIA (test code = POLC) SLIGHT ANISOCYTOSIS (test code = ANISO) SLIGHT MACROCYTOSIS (test code = MACR) FEW ELLIPTOCYTES (test code = ELL) 0 CRENATED CELLS (test code = CREN) FEW SCHISTOCYTES (test code = RAMNADEEP) FEW PLATELET ESTIMATE (test code = PLTEST) Adequate THOUSAND ADEQUATE PLATELET MORPHOLOGY (test code = PLTMORPH) LARGE PLATELETS CBC W/AUTO [id number] 05:09:00* Test Item Value Reference Range Interpretation Comments WHITE BLOOD CELL (test code = WBC) 16.48 x10 3/uL 4.5-11.0 H RED BLOOD CELL (test code = RBC) 2.54 x10 6/uL 3.54-5.02 L HEMOGLOBIN (test code = HGB) 7.0 g/dL 11.0-15.0 L HEMATOCRIT (test code = HCT) 23.2 % 33.0-45.0 L MEAN CELL VOLUME (test code = MCV) 91.3 fL 81.0-99.0 N MEAN CELL HGB (test code = MCH) 27.6 pg 27.0-33.0 N MEAN CELL HGB CONCETRATION (test code = MCHC) 30.2 g/dL 33.0-37. 0 L RED CELL DISTRIBUTION WIDTH CV (test code = RDW) 17.2 % 11.5- 14.5 H RED CELL DISTRIBUTION WIDTH SD (test code = RDW-SD) 54.8 fL 37 .0-54.0 H PLATELET COUNT (test code = PLT) 303 x10 3/uL 150-400 N MEAN PLATELET VOLUME (test code = MPV) 11.6 fL 7.0-9.0 H MANUAL DIFF REQUIRED (test code = MDIFF) YES WBC [id number] 05:09:00* Test Item Value Reference Range Interpretation Comments ANISOCYTOSIS (test code = ANISO) PLATELET ESTIMATE (test code = PLTEST) THOUSAND ADEQUATE CBC W/AUTO [id number] 05:09:00* Test Item Value Reference Range Interpretation Comments WHITE BLOOD CELL (test code = WBC) 16.48 x10 3/uL 4.5-11.0 H RED BLOOD CELL (test code = RBC) 2.54 x10 6/uL 3.54-5.02 L HEMOGLOBIN (test code = HGB) 7.0 g/dL 11.0-15.0 L HEMATOCRIT (test code = HCT) 23.2 % 33.0-45.0 L MEAN CELL VOLUME (test code = MCV) 91.3 fL 81.0-99.0 N MEAN CELL HGB (test code = MCH) 27.6 pg 27.0-33.0 N MEAN CELL HGB CONCETRATION (test code = MCHC) 30.2 g/dL 33.0-37. 0 L RED CELL DISTRIBUTION WIDTH CV (test code = RDW) 17.2 % 11.5- 14.5 H RED CELL DISTRIBUTION WIDTH SD (test code = RDW-SD) 54.8 fL 37 .0-54.0 H PLATELET COUNT (test code = PLT) 303 x10 3/uL 150-400 N MEAN PLATELET VOLUME (test code = MPV) 11.6 fL 7.0-9.0 H MANUAL DIFF REQUIRED (test code = MDIFF) YES WBC [id number] 05:09:00* Test Item Value Reference Range Interpretation Comments ANISOCYTOSIS (test code = ANISO) PLATELET ESTIMATE (test code = PLTEST) THOUSAND ADEQUATE COMPREHENSIVE METABOLIC [id number] 05:07:00* Test Item Value Reference Range Interpretation Comments SODIUM (test code = NA) 127 mEq/L 134-147 L POTASSIUM (test code = K) 4.6 mEq/L 3.4-5.0 N CHLORIDE (test code = CL) 87 mEq/L 100-108 L CARBON DIOXIDE (test code = CO2) 29 mEq/L 21-33 N ANION GAP (test code = GAP) 16 0-20 N GLUCOSE (test code = GLU) 99 mg/dL 70-110 BLOOD UREA NITROGEN (test code = BUN) 34 mg/dL 7-18 H GLOMERULAR FILTRATION RATE (test code = GFR) 38.8 90-95 L Units of measure = ml/min/1.73 m2 CREATININE (test code = CREAT) 1.4 mg/dL 0.6-1.3 H TOTAL PROTEIN (test code = PROT) 6.9 g/dL 6.4-8.2 N ALBUMIN (test code = ALB) 3.30 g/dL 3.4-5.0 L CALCIUM (test code = CA) 8.8 mg/dL 8.0-10.5 N BILIRUBIN TOTAL (test code = BILT) 1.6 MG/DL <1.5 H SGOT/AST (test code = AST) 65 IUnit/L 15-37 H SGPT/ALT (test code = ALT) 86 IUnit/L 15-65 H ALKALINE PHOSPHATASE TOTAL (test code = ALKP) 581 IUnit/L 20-125 H COMPREHENSIVE METABOLIC [id number] 05:03:00* Test Item Value Reference Range Interpretation Comments SODIUM (test code = NA) 127 mEq/L 134-147 L POTASSIUM (test code = K) 4.6 mEq/L 3.4-5.0 N CHLORIDE (test code = CL) 87 mEq/L 100-108 L CARBON DIOXIDE (test code = CO2) 29 mEq/L 21-33 N ANION GAP (test code = GAP) 16 0-20 N GLUCOSE (test code = GLU) 99 mg/dL 70-110 BLOOD UREA NITROGEN (test code = BUN) 34 mg/dL 7-18 H GLOMERULAR FILTRATION RATE (test code = GFR) 90-95 CREATININE (test code = CREAT) mg/dL 0.6-1.3 TOTAL PROTEIN (test code = PROT) g/dL 6.4-8.2 ALBUMIN (test code = ALB) g/dL 3.4-5.0 CALCIUM (test code = CA) 8.8 mg/dL 8.0-10.5 N BILIRUBIN TOTAL (test code = BILT) MG/DL <1.5 SGOT/AST (test code = AST) IUnit/L 15-37 SGPT/ALT (test code = ALT) IUnit/L 15-65 ALKALINE PHOSPHATASE TOTAL (test code = ALKP) IUnit/L 20-125 CBC W/AUTO [id number] 04:46:00* Test Item Value Reference Range Interpretation Comments WHITE BLOOD CELL (test code = WBC) 16.48 x10 3/uL 4.5-11.0 H RED BLOOD CELL (test code = RBC) 2.54 x10 6/uL 3.54-5.02 L HEMOGLOBIN (test code = HGB) 7.0 g/dL 11.0-15.0 L HEMATOCRIT (test code = HCT) 23.2 % 33.0-45.0 L MEAN CELL VOLUME (test code = MCV) 91.3 fL 81.0-99.0 N MEAN CELL HGB (test code = MCH) 27.6 pg 27.0-33.0 N MEAN CELL HGB CONCETRATION (test code = MCHC) 30.2 g/dL 33.0-37. 0 L RED CELL DISTRIBUTION WIDTH CV (test code = RDW) 17.2 % 11.5- 14.5 H RED CELL DISTRIBUTION WIDTH SD (test code = RDW-SD) 54.8 fL 37 .0-54.0 H PLATELET COUNT (test code = PLT) 303 x10 3/uL 150-400 N NEUTROPHIL % (test code = NT%) % 56.0-77.0 LYMPHOCYTE % (test code = LY%) % 14.0-32.0 NEUTROPHIL # (test code = NT#) x10 3/uL 2.0-7.6 LYMPHOCYTE # (test code = LY#) x10 3/uL 1.0-3.8 MANUAL DIFF REQUIRED (test code = MDIFF) [id number] 00:13:00* Test Item Value Reference Range Interpretation Comments GLUBED (test code = GLUBED) 143 MG/DL 70-110 H Performed by certified cable machine operator at [facility] [id number] 23:47:00* Test Item Value Reference Range Interpretation Comments GLUCOSE (test code = GLU) 68 mg/dL 70-110 L COMMENTS: HYPOGLYCEMIA PROTOCOLCBC W/AUTO [id number] 16:27:00* Test Item Value Reference Range Interpretation Comments WHITE BLOOD CELL (test code = WBC) 14.02 x10 3/uL 4.5-11.0 H RED BLOOD CELL (test code = RBC) 2.58 x10 6/uL 3.54-5.02 L HEMOGLOBIN (test code = HGB) 7.2 g/dL 11.0-15.0 L HEMATOCRIT (test code = HCT) 23.2 % 33.0-45.0 L MEAN CELL VOLUME (test code = MCV) 89.9 fL 81.0-99.0 N MEAN CELL HGB (test code = MCH) 27.9 pg 27.0-33.0 N MEAN CELL HGB CONCETRATION (test code = MCHC) 31.0 g/dL 33.0-37. 0 L RED CELL DISTRIBUTION WIDTH CV (test code = RDW) 17.1 % 11.5- 14.5 H RED CELL DISTRIBUTION WIDTH SD (test code = RDW-SD) 52.9 fL 37 .0-54.0 N PLATELET COUNT (test code = PLT) 279 x10 3/uL 150-400 N MEAN PLATELET VOLUME (test code = MPV) 10.7 fL 7.0-9.0 H NEUTROPHIL % (test code = NT%) 73.1 % 56.0-77.0 N IMMATURE GRANULOCYTE % (test code = IG%) 2.3 % 0.0-2.0 H LYMPHOCYTE % (test code = LY%) 16.6 % 14.0-32.0 N MONOCYTE % (test code = MO%) 6.2 % 4.8-9.0 N EOSINOPHIL % (test code = EO%) 1.4 % 0.3-3.7 N BASOPHIL % (test code = BA%) 0.4 % 0.0-2.0 N NUCLEATED RBC % (test code = NRBC%) 1.1 % 0-0 H NEUTROPHIL # (test code = NT#) 10.26 x10 3/uL 2.0-7.6 H IMMATURE GRANULOCYTE # (test code = IG#) 0.32 x10 3/uL 0.00-0.03 H LYMPHOCYTE # (test code = LY#) 2.33 x10 3/uL 1.0-3.8 N MONOCYTE # (test code = MO#) 0.87 x10 3/uL 0.1-0.8 H EOSINOPHIL # (test code = EO#) 0.19 x10 3/uL 0.0-0.2 N BASOPHIL # (test code = BA#) 0.05 x10 3/uL 0.0-0.2 N NUCLEATED RBC # (test code = NRBC#) 0.16 x10 3/uL 0.0-0.1 H MANUAL DIFF REQUIRED (test code = MDIFF) NO [id number] 16:24:00* Test Item Value Reference Range Interpretation Comments GLUBED (test code = GLUBED) 202 MG/DL 70-110 H Performed by certified cable machine operator at [facility] BASIC METABOLIC [id number] 16:20:00* Test Item Value Reference Range Interpretation Comments SODIUM (test code = NA) 127 mEq/L 134-147 L POTASSIUM (test code = K) 3.9 mEq/L 3.4-5.0 CHLORIDE (test code = CL) 88 mEq/L 100-108 L CARBON DIOXIDE (test code = CO2) 34 mEq/L 21-33 H ANION GAP (test code = GAP) 9 0-20 N GLUCOSE (test code = GLU) 207 mg/dL 70-110 H BLOOD UREA NITROGEN (test code = BUN) 34 mg/dL 7-18 H GLOMERULAR FILTRATION RATE (test code = GFR) 51.2 90-95 L Units of measure = ml/min/1.73 m2 CREATININE (test code = CREAT) 1.1 mg/dL 0.6-1.3 CALCIUM (test code = CA) 9.2 mg/dL 8.0-10.5 N [id number] 12:59:00* Test Item Value Reference Range Interpretation Comments GLUBED (test code = GLUBED) 309 MG/DL 70-110 H Performed by certified cable machine operator at [facility] [id number] 12:45:00* Test Item Value Reference Range Interpretation Comments GLUBED (test code = GLUBED) 207 MG/DL 70-110 H Performed by certified cable machine operator at [facility] [id number] 12:45:00* Test Item Value Reference Range Interpretation Comments GLUBED (test code = GLUBED) 82 MG/DL 70-110 N Performed by certified cable machine operator at [facility] - XR CHEST 1 [id number] 07:31:00 FAX: Santi De León MD [phone] [place]: St: ADM FAX: Marvel Donato I [phone] FAX: Dennys Newell DO [phone] FAX: Isabel Weber [phone] Name: VANDA HATCH 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 FINDINGS: Hazy basilar interstitial infiltrate improving compared to 06/03/2019. A small left pleural effusion is decrea sed in volume. The patient is poststernotomy. A right vascular sheath re anthony in place. No pneumothorax. IMPRESSION: Clearing richie g bases SL: [id number] Elec tronically Signed by Erinn Jimenez on 06/04/2019 at 0731 Reported and signed by: Dex Jimenez M.D. CC: Santi Cortés MD; Marvel Espinosa MD; Dennys Aguilar DO; Ann rose NP Technologist: Lenora Smart, RT(R ); Diane Doll, RT(R) Trnscrd Date/Time/By: 06/04/2019 (07) : B y: [email or web address] Orig Print D/T: S: 06/04/2019 (0770) PAGE 1 Signed Report BASIC METABOLIC [id number] 05:44:00* Test Item Value Reference Range Interpretation Comments SODIUM (test code = NA) 130 mEq/L 134-147 L POTASSIUM (test code = K) 3.2 mEq/L 3.4-5.0 L CHLORIDE (test code = CL) 90 mEq/L 100-108 L CARBON DIOXIDE (test code = CO2) 35 mEq/L 21-33 H ANION GAP (test code = GAP) 8 0-20 N GLUCOSE (test code = GLU) 57 mg/dL 70-110 L BLOOD UREA NITROGEN (test code = BUN) 28 mg/dL 7-18 H GLOMERULAR FILTRATION RATE (test code = GFR) 73.9 90-95 L Units of measure = ml/min/1.73 m2 CREATININE (test code = CREAT) 0.8 mg/dL 0.6-1.3 N CALCIUM (test code = CA) 9.6 mg/dL 8.0-10.5 N COMMENTS: please add to am labHEPATIC FUNCTION [id number] 05:44:00* Test Item Value Reference Range Interpretation Comments TOTAL PROTEIN (test code = PROT) 6.7 g/dL 6.4-8.2 N ALBUMIN (test code = ALB) 3.00 g/dL 3.4-5.0 L BILIRUBIN TOTAL (test code = BILT) 1.5 MG/DL <1.5 H BILIRUBIN DIRECT (test code = BILD) 0.50 MG/DL 0.0-0.30 H BILIRUBIN INDIRECT (test code = BILIND) 1.00 MG/DL SGOT/AST (test code = AST) 93 IUnit/L 15-37 H SGPT/ALT (test code = ALT) 95 IUnit/L 15-65 H ALKALINE PHOSPHATASE TOTAL (test code = ALKP) 625 IUnit/L 20-125 H COMMENTS: please add to am [id number] 05:44:00* Test Item Value Reference Range Interpretation Comments MAGNESIUM (test code = MAG) 2.20 mg/dL 1.8-2.4 N COMMENTS: please add to am labBASIC METABOLIC [id number] 05:39:00* Test Item Value Reference Range Interpretation Comments SODIUM (test code = NA) 130 mEq/L 134-147 L POTASSIUM (test code = K) 3.2 mEq/L 3.4-5.0 L CHLORIDE (test code = CL) 90 mEq/L 100-108 L CARBON DIOXIDE (test code = CO2) 35 mEq/L 21-33 H ANION GAP (test code = GAP) 8 0-20 N GLUCOSE (test code = GLU) 57 mg/dL 70-110 L BLOOD UREA NITROGEN (test code = BUN) 28 mg/dL 7-18 H GLOMERULAR FILTRATION RATE (test code = GFR) 90-95 CREATININE (test code = CREAT) mg/dL 0.6-1.3 CALCIUM (test code = CA) 9.6 mg/dL 8.0-10.5 N COMMENTS: please add to am labHEPATIC FUNCTION [id number] 05:39:00* Test Item Value Reference Range Interpretation Comments TOTAL PROTEIN (test code = PROT) g/dL 6.4-8.2 ALBUMIN (test code = ALB) g/dL 3.4-5.0 BILIRUBIN TOTAL (test code = BILT) MG/DL <1.5 BILIRUBIN DIRECT (test code = BILD) MG/DL 0.0-0.30 SGOT/AST (test code = AST) IUnit/L 15-37 SGPT/ALT (test code = ALT) IUnit/L 15-65 ALKALINE PHOSPHATASE TOTAL (test code = ALKP) IUnit/L 20-125 COMMENTS: please add to am [id number] 05:39:00* Test Item Value Reference Range Interpretation Comments MAGNESIUM (test code = MAG) mg/dL 1.8-2.4 COMMENTS: [facility] [id number] 05:29:00* Test Item Value Reference Range Interpretation Comments WHITE BLOOD CELL (test code = WBC) 11.42 x10 3/uL 4.5-11.0 H RED BLOOD CELL (test code = RBC) 2.56 x10 6/uL 3.54-5.02 L HEMOGLOBIN (test code = HGB) 7.1 g/dL 11.0-15.0 L HEMATOCRIT (test code = HCT) 22.6 % 33.0-45.0 L MEAN CELL VOLUME (test code = MCV) 88.3 fL 81.0-99.0 N MEAN CELL HGB (test code = MCH) 27.7 pg 27.0-33.0 N MEAN CELL HGB CONCETRATION (test code = MCHC) 31.4 g/dL 33.0-37. 0 L RED CELL DISTRIBUTION WIDTH CV (test code = RDW) 16.7 % 11.5- 14.5 H RED CELL DISTRIBUTION WIDTH SD (test code = RDW-SD) 51.1 fL 37 .0-54.0 N PLATELET COUNT (test code = PLT) 249 x10 3/uL 150-400 N MEAN PLATELET VOLUME (test code = MPV) 11.1 fL 7.0-9.0 H NEUTROPHIL % (test code = NT%) 72.9 % 56.0-77.0 N IMMATURE GRANULOCYTE % (test code = IG%) 1.2 % 0.0-2.0 N LYMPHOCYTE % (test code = LY%) 15.7 % 14.0-32.0 N MONOCYTE % (test code = MO%) 7.8 % 4.8-9.0 N EOSINOPHIL % (test code = EO%) 2.0 % 0.3-3.7 N BASOPHIL % (test code = BA%) 0.4 % 0.0-2.0 N NUCLEATED RBC % (test code = NRBC%) 1.4 % 0-0 H NEUTROPHIL # (test code = NT#) 8.32 x10 3/uL 2.0-7.6 H IMMATURE GRANULOCYTE # (test code = IG#) 0.14 x10 3/uL 0.00-0.03 H LYMPHOCYTE # (test code = LY#) 1.79 x10 3/uL 1.0-3.8 N MONOCYTE # (test code = MO#) 0.89 x10 3/uL 0.1-0.8 H EOSINOPHIL # (test code = EO#) 0.23 x10 3/uL 0.0-0.2 H BASOPHIL # (test code = BA#) 0.05 x10 3/uL 0.0-0.2 N NUCLEATED RBC # (test code = NRBC#) 0.16 x10 3/uL 0.0-0.1 H MANUAL DIFF REQUIRED (test code = MDIFF) NO CALCIUM [id number] 05:29:00* Test Item Value Reference Range Interpretation Comments CALCIUM IONIZED (test code = SMITH) 1.21 MMOL/L 1.12-1.32 N [id number] 05:15:00* Test Item Value Reference Range Interpretation Comments GLUBED (test code = GLUBED) 52 MG/DL 70-110 L Performed by certified cable machine operator at [facility] [id number] 03:53:00* Test Item Value Reference Range Interpretation Comments GLUBED (test code = GLUBED) 99 MG/DL 70-110 N Performed by certified cable machine operator at [facility] [id number] 01:35:00* Test Item Value Reference Range Interpretation Comments GLUBED (test code = GLUBED) 171 MG/DL 70-110 H Performed by certified cable machine operator at [facility] [id number] 01:35:00* Test Item Value Reference Range Interpretation Comments GLUBED (test code = GLUBED) 190 MG/DL 70-110 H Performed by certified cable machine operator at [facility] [id number] 23:46:00* Test Item Value Reference Range Interpretation Comments GLUBED (test code = GLUBED) 191 MG/DL 70-110 H Performed by certified cable machine operator at [facility] [id number] 22:02:00* Test Item Value Reference Range Interpretation Comments POTASSIUM (test code = K) 3.1 mEq/L 3.4-5.0 L [id number] 19:28:00* Test Item Value Reference Range Interpretation Comments GLUBED (test code = GLUBED) 136 MG/DL 70-110 H Performed by certified cable machine operator at [facility] [id number] 17:52:00* Test Item Value Reference Range Interpretation Comments POTASSIUM (test code = K) 3.3 mEq/L 3.4-5.0 L [id number] 13:34:00* Test Item Value Reference Range Interpretation Comments GLUBED (test code = GLUBED) 290 MG/DL 70-110 H Performed by certified cable machine operator at [facility] [id number] 10:09:00* Test Item Value Reference Range Interpretation Comments GLUBED (test code = GLUBED) 215 MG/DL 70-110 H Performed by certified cable machine operator at [facility] - XR CHEST 1 [id number] 07:28:00 FAX: Santi De León MD [phone] [place]: St: ADM FAX: Marvel Donato I [phone] FAX: Dennys Newell DO [phone] FAX: Isabel Weber [phone] Name: VANDA HATCH 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 FINDINGS: Perihilar vascular congestion and ba silar atelectatic changes stable. Probable small effusions of blunting ea ch costophrenic angle. No pneumothorax. A right jugular vascular sheath remains in place. Note is made of wire sternotomy sutures. IMPRESSION: Stable exam SL: [id number] at 0728 Reported and signed by: Dex Jimenez M.D. CC: Santi Cortés MD; Marvel Espinosa MD; Dennys Aguilar DO; Ann Burton NP Technologist: Lenora harmon, RT(R); Diane Doll, RT(R) Trnarrd Date/Time/By: 06/03/2019 ( 727) : By: RodriguezETG Orig Print D/T: S: 06/03/2019 (0785) PAGE 1 Signed Report BASIC METABOLIC [id number] 06:11:00* Test Item Value Reference Range Interpretation Comments SODIUM (test code = NA) 130 mEq/L 134-147 L POTASSIUM (test code = K) 3.1 mEq/L 3.4-5.0 L CHLORIDE (test code = CL) 92 mEq/L 100-108 L CARBON DIOXIDE (test code = CO2) 31 mEq/L 21-33 N ANION GAP (test code = GAP) 10 0-20 N GLUCOSE (test code = GLU) 123 mg/dL 70-110 H BLOOD UREA NITROGEN (test code = BUN) 30 mg/dL 7-18 H GLOMERULAR FILTRATION RATE (test code = GFR) 73.9 90-95 L Units of measure = ml/min/1.73 m2 CREATININE (test code = CREAT) 0.8 mg/dL 0.6-1.3 N CALCIUM (test code = CA) 8.1 mg/dL 8.0-10.5 N [id number] 06:11:00* Test Item Value Reference Range Interpretation Comments MAGNESIUM (test code = MAG) 2.00 mg/dL 1.8-2.4 N CALCIUM [id number] 06:11:00* Test Item Value Reference Range Interpretation Comments CALCIUM IONIZED (test code = SMITH) 1.07 MMOL/L 1.12-1.32 L BASIC METABOLIC [id number] 06:08:00* Test Item Value Reference Range Interpretation Comments SODIUM (test code = NA) 130 mEq/L 134-147 L POTASSIUM (test code = K) 3.1 mEq/L 3.4-5.0 L CHLORIDE (test code = CL) 92 mEq/L 100-108 L CARBON DIOXIDE (test code = CO2) 31 mEq/L 21-33 N ANION GAP (test code = GAP) 10 0-20 N GLUCOSE (test code = GLU) 123 mg/dL 70-110 H BLOOD UREA NITROGEN (test code = BUN) 30 mg/dL 7-18 H GLOMERULAR FILTRATION RATE (test code = GFR) 90-95 CREATININE (test code = CREAT) mg/dL 0.6-1.3 CALCIUM (test code = CA) 8.1 mg/dL 8.0-10.5 N [id number] 06:08:00* Test Item Value Reference Range Interpretation Comments MAGNESIUM (test code = MAG) 2.00 mg/dL 1.8-2.4 N CALCIUM [id number] 06:08:00* Test Item Value Reference Range Interpretation Comments CALCIUM IONIZED (test code = SMITH) 1.07 MMOL/L 1.12-1.32 L BASIC METABOLIC [id number] 05:57:00* Test Item Value Reference Range Interpretation Comments SODIUM (test code = NA) mEq/L 134-147 POTASSIUM (test code = K) mEq/L 3.4-5.0 CHLORIDE (test code = CL) mEq/L 100-108 CARBON DIOXIDE (test code = CO2) mEq/L 21-33 ANION GAP (test code = GAP) 0-20 GLUCOSE (test code = GLU) mg/dL 70-110 BLOOD UREA NITROGEN (test code = BUN) mg/dL 7-18 GLOMERULAR FILTRATION RATE (test code = GFR) 90-95 CREATININE (test code = CREAT) mg/dL 0.6-1.3 CALCIUM (test code = CA) mg/dL 8.0-10.5 [id number] 05:57:00* Test Item Value Reference Range Interpretation Comments MAGNESIUM (test code = MAG) mg/dL 1.8-2.4 CALCIUM [id number] 05:57:00* Test Item Value Reference Range Interpretation Comments CALCIUM IONIZED (test code = SMITH) 1.07 MMOL/L 1.12-1.32 L CBC W/AUTO [id number] 05:46:00* Test Item Value Reference Range Interpretation Comments WHITE BLOOD CELL (test code = WBC) 12.06 x10 3/uL 4.5-11.0 H RED BLOOD CELL (test code = RBC) 2.63 x10 6/uL 3.54-5.02 L HEMOGLOBIN (test code = HGB) 7.5 g/dL 11.0-15.0 L HEMATOCRIT (test code = HCT) 23.1 % 33.0-45.0 L MEAN CELL VOLUME (test code = MCV) 87.8 fL 81.0-99.0 N MEAN CELL HGB (test code = MCH) 28.5 pg 27.0-33.0 N MEAN CELL HGB CONCETRATION (test code = MCHC) 32.5 g/dL 33.0-37. 0 L RED CELL DISTRIBUTION WIDTH CV (test code = RDW) 16.4 % 11.5- 14.5 H RED CELL DISTRIBUTION WIDTH SD (test code = RDW-SD) 50.0 fL 37 .0-54.0 N PLATELET COUNT (test code = PLT) 224 x10 3/uL 150-400 N MEAN PLATELET VOLUME (test code = MPV) 11.4 fL 7.0-9.0 H NEUTROPHIL % (test code = NT%) 76.6 % 56.0-77.0 N IMMATURE GRANULOCYTE % (test code = IG%) 1.5 % 0.0-2.0 N LYMPHOCYTE % (test code = LY%) 12.9 % 14.0-32.0 L MONOCYTE % (test code = MO%) 6.8 % 4.8-9.0 N EOSINOPHIL % (test code = EO%) 1.7 % 0.3-3.7 N BASOPHIL % (test code = BA%) 0.5 % 0.0-2.0 N NUCLEATED RBC % (test code = NRBC%) 0.8 % 0-0 H NEUTROPHIL # (test code = NT#) 9.24 x10 3/uL 2.0-7.6 H IMMATURE GRANULOCYTE # (test code = IG#) 0.18 x10 3/uL 0.00-0.03 H LYMPHOCYTE # (test code = LY#) 1.56 x10 3/uL 1.0-3.8 N MONOCYTE # (test code = MO#) 0.82 x10 3/uL 0.1-0.8 H EOSINOPHIL # (test code = EO#) 0.20 x10 3/uL 0.0-0.2 N BASOPHIL # (test code = BA#) 0.06 x10 3/uL 0.0-0.2 N NUCLEATED RBC # (test code = NRBC#) 0.10 x10 3/uL 0.0-0.1 N MANUAL DIFF REQUIRED (test code = MDIFF) NO [id number] 05:12:00* Test Item Value Reference Range Interpretation Comments GLUBED (test code = GLUBED) 80 MG/DL 70-110 N Performed by certified cable machine operator at [facility] [id number] 00:14:00* Test Item Value Reference Range Interpretation Comments GLUBED (test code = GLUBED) 89 MG/DL 70-110 N Performed by certified cable machine operator at [facility] [id number] 19:54:00* Test Item Value Reference Range Interpretation Comments POTASSIUM (test code = K) 3.2 mEq/L 3.4-5.0 L [id number] 19:32:00* Test Item Value Reference Range Interpretation Comments GLUBED (test code = GLUBED) 120 MG/DL 70-110 H Performed by certified cable machine operator at [facility] [id number] 15:37:00* Test Item Value Reference Range Interpretation Comments GLUBED (test code = GLUBED) 139 MG/DL 70-110 H Performed by certified cable machine operator at [facility] [id number] 13:05:00* Test Item Value Reference Range Interpretation Comments POTASSIUM (test code = K) 3.8 mEq/L 3.4-5.0 N [id number] 11:41:00* Test Item Value Reference Range Interpretation Comments GLUBED (test code = GLUBED) 209 MG/DL 70-110 H Performed by certified cable machine operator at [facility] [id number] 07:58:00* Test Item Value Reference Range Interpretation Comments GLUBED (test code = GLUBED) 135 MG/DL 70-110 H Performed by certified cable machine operator at [facility] - XR CHEST 1 [id number] 06:53:00 FAX: Santi De León MD [phone] [place]: St: ADM FAX: Marvel Donato I [phone] FAX: Dennys Newell DO [phone] FAX: Isabel Weber [phone] Name: VANDA HATCH 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 Mediastinal drains seen on previous examination as well as left-sided chest tube have been removed. Right IJ catheter re anthony in place. There is evidence of stable cardiomegaly. Bibasil ar opacities compatible with pleural effusion is noted. Underlying atelec tasis may be present. There is better aeration of right lung compared to previous examination. IMPRESSION: 1. Interval rem oval of left-sided chest tube as well as mediastinal drain. 2. Stable cardiomegaly with bilateral pleural effusion and underlying atele ctasis with better aeration of right lung. at 0653 Reported and sign ed by: Joel Bell M.D. CC: Santi Cortés MD; Marvel kemp MD; Dennys Aguilar DO; Ann Weber NP Technologist: RT Addy(Ramírez) Trnscrd Date/Time/By: 06/02/2019 (5717) : By: RodriguezYOS Orig Print D/T: S: 06/02/2019 (1750) PAGE 1 Signed Report BASIC METABOLIC [id number] 05:08:00* Test Item Value Reference Range Interpretation Comments SODIUM (test code = NA) 129 mEq/L 134-147 L POTASSIUM (test code = K) 3.6 mEq/L 3.4-5.0 N CHLORIDE (test code = CL) 94 mEq/L 100-108 L CARBON DIOXIDE (test code = CO2) 26 mEq/L 21-33 N ANION GAP (test code = GAP) 13 0-20 N GLUCOSE (test code = GLU) 114 mg/dL 70-110 H BLOOD UREA NITROGEN (test code = BUN) 31 mg/dL 7-18 H GLOMERULAR FILTRATION RATE (test code = GFR) 73.9 90-95 L Units of measure = ml/min/1.73 m2 CREATININE (test code = CREAT) 0.8 mg/dL 0.6-1.3 N CALCIUM (test code = CA) 7.7 mg/dL 8.0-10.5 L [id number] 05:08:00* Test Item Value Reference Range Interpretation Comments MAGNESIUM (test code = MAG) 2.10 mg/dL 1.8-2.4 N CALCIUM [id number] 04:53:00* Test Item Value Reference Range Interpretation Comments CALCIUM IONIZED (test code = SMITH) 1.01 MMOL/L 1.12-1.32 L CBC W/AUTO [id number] 04:46:00* Test Item Value Reference Range Interpretation Comments WHITE BLOOD CELL (test code = WBC) 14.33 x10 3/uL 4.5-11.0 H RED BLOOD CELL (test code = RBC) 2.65 x10 6/uL 3.54-5.02 L HEMOGLOBIN (test code = HGB) 7.5 g/dL 11.0-15.0 L HEMATOCRIT (test code = HCT) 23.4 % 33.0-45.0 L MEAN CELL VOLUME (test code = MCV) 88.3 fL 81.0-99.0 N MEAN CELL HGB (test code = MCH) 28.3 pg 27.0-33.0 N MEAN CELL HGB CONCETRATION (test code = MCHC) 32.1 g/dL 33.0-37. 0 L RED CELL DISTRIBUTION WIDTH CV (test code = RDW) 16.3 % 11.5- 14.5 H RED CELL DISTRIBUTION WIDTH SD (test code = RDW-SD) 50.4 fL 37 .0-54.0 N PLATELET COUNT (test code = PLT) 193 x10 3/uL 150-400 N MEAN PLATELET VOLUME (test code = MPV) 11.2 fL 7.0-9.0 H NEUTROPHIL % (test code = NT%) 74.8 % 56.0-77.0 N IMMATURE GRANULOCYTE % (test code = IG%) 1.2 % 0.0-2.0 N LYMPHOCYTE % (test code = LY%) 15.4 % 14.0-32.0 N MONOCYTE % (test code = MO%) 6.8 % 4.8-9.0 N EOSINOPHIL % (test code = EO%) 1.3 % 0.3-3.7 N BASOPHIL % (test code = BA%) 0.5 % 0.0-2.0 N NUCLEATED RBC % (test code = NRBC%) 0.7 % 0-0 H NEUTROPHIL # (test code = NT#) 10.73 x10 3/uL 2.0-7.6 H IMMATURE GRANULOCYTE # (test code = IG#) 0.17 x10 3/uL 0.00-0.03 H LYMPHOCYTE # (test code = LY#) 2.20 x10 3/uL 1.0-3.8 N MONOCYTE # (test code = MO#) 0.97 x10 3/uL 0.1-0.8 H EOSINOPHIL # (test code = EO#) 0.19 x10 3/uL 0.0-0.2 N BASOPHIL # (test code = BA#) 0.07 x10 3/uL 0.0-0.2 N NUCLEATED RBC # (test code = NRBC#) 0.10 x10 3/uL 0.0-0.1 N MANUAL DIFF REQUIRED (test code = MDIFF) NO [id number] 04:15:00* Test Item Value Reference Range Interpretation Comments GLUBED (test code = GLUBED) 99 MG/DL 70-110 N Performed by certified cable machine operator at [facility] [id number] 00:53:00* Test Item Value Reference Range Interpretation Comments GLUBED (test code = GLUBED) 72 MG/DL 70-110 N Performed by certified cable machine operator at [facility] [id number] 22:01:00* Test Item Value Reference Range Interpretation Comments GLUBED (test code = GLUBED) 96 MG/DL 70-110 N Performed by certified cable machine operator at [facility] [id number] 21:33:00* Test Item Value Reference Range Interpretation Comments POTASSIUM (test code = K) 4.0 mEq/L 3.4-5.0 N BASIC METABOLIC [id number] 18:18:00* Test Item Value Reference Range Interpretation Comments SODIUM (test code = NA) 130 mEq/L 134-147 L POTASSIUM (test code = K) 3.8 mEq/L 3.4-5.0 N CHLORIDE (test code = CL) 96 mEq/L 100-108 L CARBON DIOXIDE (test code = CO2) 27 mEq/L 21-33 N ANION GAP (test code = GAP) 11 0-20 N GLUCOSE (test code = GLU) 93 mg/dL 70-110 BLOOD UREA NITROGEN (test code = BUN) 33 mg/dL 7-18 H GLOMERULAR FILTRATION RATE (test code = GFR) 64.5 90-95 L Units of measure = ml/min/1.73 m2 CREATININE (test code = CREAT) 0.9 mg/dL 0.6-1.3 N CALCIUM (test code = CA) 8.0 mg/dL 8.0-10.5 N BASIC METABOLIC [id number] 18:14:00* Test Item Value Reference Range Interpretation Comments SODIUM (test code = NA) 130 mEq/L 134-147 L POTASSIUM (test code = K) 3.8 mEq/L 3.4-5.0 N CHLORIDE (test code = CL) 96 mEq/L 100-108 L CARBON DIOXIDE (test code = CO2) 27 mEq/L 21-33 N ANION GAP (test code = GAP) 11 0-20 N GLUCOSE (test code = GLU) mg/dL 70-110 BLOOD UREA NITROGEN (test code = BUN) 33 mg/dL 7-18 H GLOMERULAR FILTRATION RATE (test code = GFR) 90-95 CREATININE (test code = CREAT) mg/dL 0.6-1.3 CALCIUM (test code = CA) 8.0 mg/dL 8.0-10.5 N [id number] 16:22:00* Test Item Value Reference Range Interpretation Comments GLUBED (test code = GLUBED) 106 MG/DL 70-110 N Performed by certified cable machine operator at [facility] [id number] 14:08:00* Test Item Value Reference Range Interpretation Comments GLUBED (test code = GLUBED) 113 MG/DL 70-110 H Performed by certified cable machine operator at [facility] [id number] 11:35:00* Test Item Value Reference Range Interpretation Comments GLUBED (test code = GLUBED) 100 MG/DL 70-110 N Performed by certified cable machine operator at [facility] [id number] 08:10:00* Test Item Value Reference Range Interpretation Comments GLUBED (test code = GLUBED) 126 MG/DL 70-110 H Performed by certified cable machine operator at [facility] [id number] 08:07:00* Test Item Value Reference Range Interpretation Comments GLUBED (test code = GLUBED) 96 MG/DL 70-110 N Performed by certified cable machine 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 COMPARISON: 05/31/2019 FINDINGS: The heart is enlarged, unchanged. Status post median sternotomy. Right IJ sheath as well as mediastinal and left chest support drains remain in place. Hazy lower lobe opacity likely small pleu ral effusions with atelectasis and/or airspace disease. Appearance is similar to the previous study. IMPRESSION: 1. Grossly stable radiographic appearance of the chest SL: [id number] at 0758 Reported and signed by: Lobo Gamez M.D. CC: Santi Cortés MD; Marvel Espinosa MD; Dennys Aguilar DO; Ann Shipman NP Technologist: KRISTINA Daly) Trnscrd Date/Time/By: 0 (0758) : By: [email or web address] Orig Print D/T: S: 06/01/2019 (0801) PAGE 1 Signed Report [id number] 07:44:00* Test Item Value Reference Range Interpretation Comments GLUBED (test code = GLUBED) 165 MG/DL 70-110 H Performed by certified cable machine operator at [facility] [id number] 05:54:00* Test Item Value Reference Range Interpretation Comments GLUBED (test code = GLUBED) 106 MG/DL 70-110 N Performed by certified cable machine operator at [facility] BASIC METABOLIC [id number] 04:19:00* Test Item Value Reference Range Interpretation Comments SODIUM (test code = NA) 131 mEq/L 134-147 L POTASSIUM (test code = K) 4.5 mEq/L 3.4-5.0 N CHLORIDE (test code = CL) 99 mEq/L 100-108 L CARBON DIOXIDE (test code = CO2) 25 mEq/L 21-33 N ANION GAP (test code = GAP) 12 0-20 N GLUCOSE (test code = GLU) 127 mg/dL 70-110 H BLOOD UREA NITROGEN (test code = BUN) 33 mg/dL 7-18 H GLOMERULAR FILTRATION RATE (test code = GFR) 64.5 90-95 L Units of measure = ml/min/1.73 m2 CREATININE (test code = CREAT) 0.9 mg/dL 0.6-1.3 N CALCIUM (test code = CA) 8.2 mg/dL 8.0-10.5 N COMMENTS: POD #1HEPATIC FUNCTION [id number] 04:19:00* Test Item Value Reference Range Interpretation Comments TOTAL PROTEIN (test code = PROT) 6.2 g/dL 6.4-8.2 L ALBUMIN (test code = ALB) 3.00 g/dL 3.4-5.0 L BILIRUBIN TOTAL (test code = BILT) 2.0 MG/DL <1.5 H BILIRUBIN DIRECT (test code = BILD) 0.90 MG/DL 0.0-0.30 H BILIRUBIN INDIRECT (test code = BILIND) 1.10 MG/DL SGOT/AST (test code = AST) 48 IUnit/L 15-37 H SGPT/ALT (test code = ALT) 34 IUnit/L 15-65 N ALKALINE PHOSPHATASE TOTAL (test code = ALKP) 318 IUnit/L 20-125 H COMMENTS: POD #[id number] 04:19:00* Test Item Value Reference Range Interpretation Comments MAGNESIUM (test code = MAG) 2.30 mg/dL 1.8-2.4 N COMMENTS: POD #1CBC W/AUTO [id number] 04:02:00* Test Item Value Reference Range Interpretation Comments WHITE BLOOD CELL (test code = WBC) 16.04 x10 3/uL 4.5-11.0 H RED BLOOD CELL (test code = RBC) 2.66 x10 6/uL 3.54-5.02 L HEMOGLOBIN (test code = HGB) 7.5 g/dL 11.0-15.0 L HEMATOCRIT (test code = HCT) 23.7 % 33.0-45.0 L MEAN CELL VOLUME (test code = MCV) 89.1 fL 81.0-99.0 N MEAN CELL HGB (test code = MCH) 28.2 pg 27.0-33.0 N MEAN CELL HGB CONCETRATION (test code = MCHC) 31.6 g/dL 33.0-37. 0 L RED CELL DISTRIBUTION WIDTH CV (test code = RDW) 16.5 % 11.5- 14.5 H RED CELL DISTRIBUTION WIDTH SD (test code = RDW-SD) 50.6 fL 37 .0-54.0 N PLATELET COUNT (test code = PLT) 165 x10 3/uL 150-400 N MEAN PLATELET VOLUME (test code = MPV) 11.2 fL 7.0-9.0 H NEUTROPHIL % (test code = NT%) 77.0 % 56.0-77.0 N IMMATURE GRANULOCYTE % (test code = IG%) 0.8 % 0.0-2.0 N LYMPHOCYTE % (test code = LY%) 16.2 % 14.0-32.0 N MONOCYTE % (test code = MO%) 4.9 % 4.8-9.0 N EOSINOPHIL % (test code = EO%) 0.6 % 0.3-3.7 N BASOPHIL % (test code = BA%) 0.5 % 0.0-2.0 N NUCLEATED RBC % (test code = NRBC%) 0.2 % 0-0 H NEUTROPHIL # (test code = NT#) 12.34 x10 3/uL 2.0-7.6 H IMMATURE GRANULOCYTE # (test code = IG#) 0.13 x10 3/uL 0.00-0.03 H LYMPHOCYTE # (test code = LY#) 2.60 x10 3/uL 1.0-3.8 N MONOCYTE # (test code = MO#) 0.79 x10 3/uL 0.1-0.8 N EOSINOPHIL # (test code = EO#) 0.10 x10 3/uL 0.0-0.2 N BASOPHIL # (test code = BA#) 0.08 x10 3/uL 0.0-0.2 N NUCLEATED RBC # (test code = NRBC#) 0.03 x10 3/uL 0.0-0.1 N MANUAL DIFF REQUIRED (test code = MDIFF) NO BASIC METABOLIC [id number] 22:59:00* Test Item Value Reference Range Interpretation Comments SODIUM (test code = NA) 129 mEq/L 134-147 L POTASSIUM (test code = K) 4.9 mEq/L 3.4-5.0 N CHLORIDE (test code = CL) 97 mEq/L 100-108 L CARBON DIOXIDE (test code = CO2) 24 mEq/L 21-33 N ANION GAP (test code = GAP) 13 0-20 N GLUCOSE (test code = GLU) 176 mg/dL 70-110 H BLOOD UREA NITROGEN (test code = BUN) 33 mg/dL 7-18 H GLOMERULAR FILTRATION RATE (test code = GFR) 57.1 90-95 L Units of measure = ml/min/1.73 m2 CREATININE (test code = CREAT) 1.0 mg/dL 0.6-1.3 N CALCIUM (test code = CA) 8.1 mg/dL 8.0-10.5 N [id number] 22:31:00* Test Item Value Reference Range Interpretation Comments GLUBED (test code = GLUBED) 168 MG/DL 70-110 H Performed by certified cable machine operator at [facility] [id number] 22:10:00* Test Item Value Reference Range Interpretation Comments GLUBED (test code = GLUBED) 130 MG/DL 70-110 H Performed by certified cable machine operator at [facility] ARTERIAL BLOOD [id number] 19:23:00* Test Item Value Reference Range Interpretation Comments ARTERIAL BLOOD GAS PH (test code = PHA) 7.310 7.35-7.45 L ARTERIAL BLOOD GAS PCO2 (test code = PCO2A) 44.6 mmHg 35-45 N ARTERIAL BLOOD GAS PO2 (test code = PO2A) 140 mmHg 80-100 H BICARBONATE TOTAL HCO3 (test code = HCO3) 22.6 mmol/L 22.0-26.0 N BASE EXCESS (test code = EDIE) -4.0 mmol/L -4-4 N ABG O2 SATURATION (test code = SATA) 99 % 90-100 N FIO2 (test code = FIO2A) 40 % ABG DELIVERY (test code = HIRO) Vent ABG VENT MODE (test code = MODEA) AC v con ABG VENT RESP RATE (test code = RRA) 10 /MIN ABG TIDAL VOLUME (test code = TVA) 450 ml ABG PEEP (test code = PEEPA) 5 cmH2O Performed by certified cable machine operator at [facility] ABG TEMPERATURE (test code = TEMPA) 97.7 F ABG SITE (test code = SITEA) Art line PREDICTED AA GRADIENT (test code = AP) 60 PREDICTED PO2 (test code = OP) 171 a/A RATIO (test code = RATIO) 0.60 TCO2 ARTERIAL (test code = TCO2A) 24 A-A GRADIENT (test code = AAGRADE) 92 ARTERIAL BLOOD [id number] 19:22:00* Test Item Value Reference Range Interpretation Comments ARTERIAL BLOOD GAS PH (test code = PHA) 7.439 7.35-7.45 N ARTERIAL BLOOD GAS PCO2 (test code = PCO2A) 34.1 mmHg 35-45 L ARTERIAL BLOOD GAS PO2 (test code = PO2A) 149 mmHg 80-100 H BICARBONATE TOTAL HCO3 (test code = HCO3) 23.2 mmol/L 22.0-26.0 N BASE EXCESS (test code = EDIE) -1.0 mmol/L -4-4 N ABG O2 SATURATION (test code = SATA) 99 % 90-100 N FIO2 (test code = FIO2A) 40 % ABG DELIVERY (test code = HIRO) Vent ABG VENT MODE (test code = MODEA) PSV ABG PEEP (test code = PEEPA) 5 cmH2O ABG PRESSURE SUPPORT (test code = PSABG) 5 cmH2O Performed by certified cable machine operator at [facility] ABG TEMPERATURE (test code = TEMPA) 98.1 F ABG SITE (test code = SITEA) Art line PREDICTED AA GRADIENT (test code = AP) 63 PREDICTED PO2 (test code = OP) 181 a/A RATIO (test code = RATIO) 0.61 TCO2 ARTERIAL (test code = TCO2A) 24 A-A GRADIENT (test code = AAGRADE) 95 ARTERIAL BLOOD [id number] 19:21:00* Test Item Value Reference Range Interpretation Comments ARTERIAL BLOOD GAS PH (test code = PHA) 7.395 7.35-7.45 N ARTERIAL BLOOD GAS PCO2 (test code = PCO2A) 34.4 mmHg 35-45 L ARTERIAL BLOOD GAS PO2 (test code = PO2A) 159 mmHg 80-100 H BICARBONATE TOTAL HCO3 (test code = HCO3) 21.0 mmol/L 22.0-26.0 L BASE EXCESS (test code = EDIE) -4.0 mmol/L -4-4 N ABG O2 SATURATION (test code = SATA) 99 % 90-100 N ABG DELIVERY (test code = HIRO) Cannula ABG TEMPERATURE (test code = TEMPA) 99.5 F ABG SITE (test code = SITEA) Art line TCO2 ARTERIAL (test code = TCO2A) 22 BASIC METABOLIC [id number] 17:56:00* Test Item Value Reference Range Interpretation Comments SODIUM (test code = NA) 131 mEq/L 134-147 L POTASSIUM (test code = K) 5.1 mEq/L 3.4-5.0 H CHLORIDE (test code = CL) 98 mEq/L 100-108 L CARBON DIOXIDE (test code = CO2) 26 mEq/L 21-33 N ANION GAP (test code = GAP) 12 0-20 N GLUCOSE (test code = GLU) 131 mg/dL 70-110 H BLOOD UREA NITROGEN (test code = BUN) 35 mg/dL 7-18 H GLOMERULAR FILTRATION RATE (test code = GFR) 51.2 90-95 L Units of measure = ml/min/1.73 m2 CREATININE (test code = CREAT) 1.1 mg/dL 0.6-1.3 N CALCIUM (test code = CA) 8.7 mg/dL 8.0-10.5 N COMMENTS: Q/8H WHILE ON LASIX DRIP [id number] 17:56:00* Test Item Value Reference Range Interpretation Comments MAGNESIUM (test code = MAG) 2.50 mg/dL 1.8-2.4 H COMMENTS: Q/8H WHILE ON LASIX DRIP [id number] 11:37:00* Test Item Value Reference Range Interpretation Comments GLUBED (test code = GLUBED) 163 MG/DL 70-110 H Performed by certified cable machine operator at [facility] [id number] 08:21:00* Test Item Value Reference Range Interpretation Comments GLUBED (test code = GLUBED) 122 MG/DL 70-110 H Performed by certified cable machine operator at [facility] [id number] 07:33:00* Test Item Value Reference Range Interpretation Comments GLUBED (test code = GLUBED) 180 MG/DL 70-110 H Performed by certified cable machine operator at [facility] [id number] 07:33:00* Test Item Value Reference Range Interpretation Comments GLUBED (test code = GLUBED) 173 MG/DL 70-110 H Performed by certified cable machine operator at [facility] [id number] 07:33:00* Test Item Value Reference Range Interpretation Comments GLUBED (test code = GLUBED) 112 MG/DL 70-110 H Performed by certified cable machine operator at [facility] [id number] 07:33:00* Test Item Value Reference Range Interpretation Comments GLUBED (test code = GLUBED) 96 MG/DL 70-110 N Performed by certified cable machine operator at [facility] [id number] 07:33:00* Test Item Value Reference Range Interpretation Comments GLUBED (test code = GLUBED) 108 MG/DL 70-110 N Performed by certified cable machine operator at [facility] [id number] 07:33:00* Test Item Value Reference Range Interpretation Comments GLUBED (test code = GLUBED) 141 MG/DL 70-110 H Performed by certified cable machine operator at [facility] [id number] 07:33:00* Test Item Value Reference Range Interpretation Comments GLUBED (test code = GLUBED) 206 MG/DL 70-110 H Performed by certified cable machine operator at [facility] - XR CHEST 1 [id number] 07:25:00 FAX: Santi De León MD [phone] [place]: St: ADM FAX: Marvel Donato I [phone] FAX: Dennys Newell DO [phone] FAX: Isabel Weber [phone] Name: VANDA HATCH 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 COMPARISON: 05/30/2019. FINDINGS: Expiratory semiupright portable exam. Attenuation of the mid to lower richie g field has increased over the last day. Each hemidiaphragm is now obscur ed. Stable tubes noted over the left lower chest. No pneumothorax. IMPRESSION: 1. Expiratory exam with moderate increase of bib asilar opacity over the last day. SL: [id number] Electronically Signed by Erinn Patel on 05/30 at 0725 Reported and signed by: Tano Patel M.D. CC: Santi Cortés MD; Marvel Espinosa MD; Dennys Aguilar DO; Ann Weber NP T echnologist: RT Addy(R) Trnscrd Date /Time/By: 05/31/2019 (724) : By: [email or web address] Orig Print D/T: S: 020 (1442) PAGE 1 Signed Report BASIC METABOLIC [id number] 05:55:00* Test Item Value Reference Range Interpretation Comments SODIUM (test code = NA) 134 mEq/L 134-147 N POTASSIUM (test code = K) 4.5 mEq/L 3.4-5.0 N CHLORIDE (test code = CL) 101 mEq/L 100-108 N CARBON DIOXIDE (test code = CO2) 25 mEq/L 21-33 N ANION GAP (test code = GAP) 13 0-20 N GLUCOSE (test code = GLU) 177 mg/dL 70-110 H BLOOD UREA NITROGEN (test code = BUN) 26 mg/dL 7-18 H GLOMERULAR FILTRATION RATE (test code = GFR) 64.5 90-95 L Units of measure = ml/min/1.73 m2 CREATININE (test code = CREAT) 0.9 mg/dL 0.6-1.3 N CALCIUM (test code = CA) 8.3 mg/dL 8.0-10.5 N COMMENTS: POD #1HEPATIC FUNCTION [id number] 05:55:00* Test Item Value Reference Range Interpretation Comments TOTAL PROTEIN (test code = PROT) 6.2 g/dL 6.4-8.2 L ALBUMIN (test code = ALB) 3.50 g/dL 3.4-5.0 N BILIRUBIN TOTAL (test code = BILT) 3.1 MG/DL <1.5 H BILIRUBIN DIRECT (test code = BILD) 1.00 MG/DL 0.0-0.30 H BILIRUBIN INDIRECT (test code = BILIND) 2.10 MG/DL SGOT/AST (test code = AST) 64 IUnit/L 15-37 H SGPT/ALT (test code = ALT) 30 IUnit/L 15-65 N ALKALINE PHOSPHATASE TOTAL (test code = ALKP) 138 IUnit/L 20-125 H COMMENTS: POD #[id number] 05:55:00* Test Item Value Reference Range Interpretation Comments MAGNESIUM (test code = MAG) 2.20 mg/dL 1.8-2.4 N COMMENTS: POD #1CBC W/AUTO [id number] 05:41:00* Test Item Value Reference Range Interpretation Comments WHITE BLOOD CELL (test code = WBC) 18.88 x10 3/uL 4.5-11.0 H RED BLOOD CELL (test code = RBC) 2.70 x10 6/uL 3.54-5.02 L HEMOGLOBIN (test code = HGB) 7.7 g/dL 11.0-15.0 L HEMATOCRIT (test code = HCT) 24.1 % 33.0-45.0 L MEAN CELL VOLUME (test code = MCV) 89.3 fL 81.0-99.0 N MEAN CELL HGB (test code = MCH) 28.5 pg 27.0-33.0 N MEAN CELL HGB CONCETRATION (test code = MCHC) 32.0 g/dL 33.0-37. 0 L RED CELL DISTRIBUTION WIDTH CV (test code = RDW) 16.7 % 11.5- 14.5 H RED CELL DISTRIBUTION WIDTH SD (test code = RDW-SD) 52.6 fL 37 .0-54.0 N PLATELET COUNT (test code = PLT) 154 x10 3/uL 150-400 N MEAN PLATELET VOLUME (test code = MPV) 11.6 fL 7.0-9.0 H NEUTROPHIL % (test code = NT%) 77.8 % 56.0-77.0 H IMMATURE GRANULOCYTE % (test code = IG%) 1.0 % 0.0-2.0 N LYMPHOCYTE % (test code = LY%) 12.4 % 14.0-32.0 L MONOCYTE % (test code = MO%) 8.1 % 4.8-9.0 N EOSINOPHIL % (test code = EO%) 0.2 % 0.3-3.7 L BASOPHIL % (test code = BA%) 0.5 % 0.0-2.0 N NUCLEATED RBC % (test code = NRBC%) 0.2 % 0-0 H NEUTROPHIL # (test code = NT#) 14.71 x10 3/uL 2.0-7.6 H IMMATURE GRANULOCYTE # (test code = IG#) 0.19 x10 3/uL 0.00-0.03 H LYMPHOCYTE # (test code = LY#) 2.34 x10 3/uL 1.0-3.8 N MONOCYTE # (test code = MO#) 1.52 x10 3/uL 0.1-0.8 H EOSINOPHIL # (test code = EO#) 0.03 x10 3/uL 0.0-0.2 N BASOPHIL # (test code = BA#) 0.09 x10 3/uL 0.0-0.2 N NUCLEATED RBC # (test code = NRBC#) 0.04 x10 3/uL 0.0-0.1 N MANUAL DIFF REQUIRED (test code = MDIFF) NO COMMENTS: Daily while on HeparinARTERIAL BLOOD [id number] 05:25:00* Test Item Value Reference Range Interpretation Comments ARTERIAL BLOOD GAS PH (test code = PHA) 7.395 7.35-7.45 N ARTERIAL BLOOD GAS PCO2 (test code = PCO2A) 34.4 mmHg 35-45 L ARTERIAL BLOOD GAS PO2 (test code = PO2A) 159 mmHg 80-100 H BICARBONATE TOTAL HCO3 (test code = HCO3) 21.0 mmol/L 22.0-26.0 L BASE EXCESS (test code = EDIE) -4.0 mmol/L -4-4 N ABG O2 SATURATION (test code = SATA) 99 % 90-100 N ABG DELIVERY (test code = HIRO) Cannula ABG TEMPERATURE (test code = TEMPA) 99.5 F ABG SITE (test code = SITEA) Art line TCO2 ARTERIAL (test code = TCO2A) 22 BASIC METABOLIC [id number] 20:49:00* Test Item Value Reference Range Interpretation Comments SODIUM (test code = NA) 135 mEq/L 134-147 N POTASSIUM (test code = K) 4.6 mEq/L 3.4-5.0 N CHLORIDE (test code = CL) 105 mEq/L 100-108 N CARBON DIOXIDE (test code = CO2) 25 mEq/L 21-33 N ANION GAP (test code = GAP) 10 0-20 N GLUCOSE (test code = GLU) 140 mg/dL 70-110 H BLOOD UREA NITROGEN (test code = BUN) 21 mg/dL 7-18 H GLOMERULAR FILTRATION RATE (test code = GFR) 64.5 90-95 L Units of measure = ml/min/1.73 m2 CREATININE (test code = CREAT) 0.9 mg/dL 0.6-1.3 N CALCIUM (test code = CA) 8.3 mg/dL 8.0-10.5 N [id number] 20:49:00* Test Item Value Reference Range Interpretation Comments PHOSPHOROUS (test code = PHOS) 3.2 MG/DL 2.5-4.9 N [id number] 20:49:00* Test Item Value Reference Range Interpretation Comments MAGNESIUM (test code = MAG) 2.40 mg/dL 1.8-2.4 N [id number] 19:12:00* Test Item Value Reference Range Interpretation Comments GLUBED (test code = GLUBED) 159 MG/DL 70-110 H Performed by certified cable machine operator at [facility] BASIC METABOLIC [id number] 17:28:00* Test Item Value Reference Range Interpretation Comments SODIUM (test code = NA) 134 mEq/L 134-147 N POTASSIUM (test code = K) 5.3 mEq/L 3.4-5.0 H CHLORIDE (test code = CL) 104 mEq/L 100-108 N CARBON DIOXIDE (test code = CO2) 22 mEq/L 21-33 N ANION GAP (test code = GAP) 13 0-20 N GLUCOSE (test code = GLU) 216 mg/dL 70-110 H BLOOD UREA NITROGEN (test code = BUN) 20 mg/dL 7-18 H GLOMERULAR FILTRATION RATE (test code = GFR) 57.1 90-95 L Units of measure = ml/min/1.73 m2 CREATININE (test code = CREAT) 1.0 mg/dL 0.6-1.3 N CALCIUM (test code = CA) 8.3 mg/dL 8.0-10.5 N [id number] 17:28:00* Test Item Value Reference Range Interpretation Comments MAGNESIUM (test code = MAG) 2.60 mg/dL 1.8-2.4 H [id number] 17:14:00* Test Item Value Reference Range Interpretation Comments GLUBED (test code = GLUBED) 170 MG/DL 70-110 H Performed by certified cable machine operator at [facility] [id number] 17:14:00* Test Item Value Reference Range Interpretation Comments GLUBED (test code = GLUBED) 108 MG/DL 70-110 N Performed by certified cable machine operator at [facility] [id number] 17:14:00* Test Item Value Reference Range Interpretation Comments GLUBED (test code = GLUBED) 96 MG/DL 70-110 N Performed by certified cable machine operator at [facility] [id number] 17:14:00* Test Item Value Reference Range Interpretation Comments GLUBED (test code = GLUBED) 126 MG/DL 70-110 H Performed by certified cable machine operator at [facility] [id number] 17:14:00* Test Item Value Reference Range Interpretation Comments GLUBED (test code = GLUBED) 152 MG/DL 70-110 H Performed by certified [facility] machine [facility] [facility] [id number] 17:14:00* Test Item Value Reference Range Interpretation Comments GLUBED (test code = GLUBED) 195 MG/DL 70-110 H Performed by certified cable machine operator at [facility] [id number] 17:14:00* Test Item Value Reference Range Interpretation Comments GLUBED (test code = GLUBED) 217 MG/DL 70-110 H Performed by certified cable machine operator at [facility] ARTERIAL BLOOD [id number] 14:43:00* Test Item Value Reference Range Interpretation Comments ARTERIAL BLOOD GAS PH (test code = PHA) 7.439 7.35-7.45 N ARTERIAL BLOOD GAS PCO2 (test code = PCO2A) 34.1 mmHg 35-45 L ARTERIAL BLOOD GAS PO2 (test code = PO2A) 149 mmHg 80-100 H BICARBONATE TOTAL HCO3 (test code = HCO3) 23.2 mmol/L 22.0-26.0 N BASE EXCESS (test code = EDIE) -1.0 mmol/L -4-4 N ABG O2 SATURATION (test code = SATA) 99 % 90-100 N FIO2 (test code = FIO2A) 40 % ABG DELIVERY (test code = HIOR) Vent ABG VENT MODE (test code = MODEA) PSV ABG PEEP (test code = PEEPA) 5 cmH2O ABG PRESSURE SUPPORT (test code = PSABG) 5 cmH2O Performed by certified cable machine operator at [facility] ABG TEMPERATURE (test code = TEMPA) 98.1 F ABG SITE (test code = SITEA) Art line PREDICTED AA GRADIENT (test code = AP) 63 PREDICTED PO2 (test code = OP) 181 a/A RATIO (test code = RATIO) 0.61 TCO2 ARTERIAL (test code = TCO2A) 24 A-A GRADIENT (test code = AAGRADE) 95 ARTERIAL BLOOD [id number] 14:43:00* Test Item Value Reference Range Interpretation Comments ARTERIAL BLOOD GAS PH (test code = PHA) 7.310 7.35-7.45 L ARTERIAL BLOOD GAS PCO2 (test code = PCO2A) 44.6 mmHg 35-45 N ARTERIAL BLOOD GAS PO2 (test code = PO2A) 140 mmHg 80-100 H BICARBONATE TOTAL HCO3 (test code = HCO3) 22.6 mmol/L 22.0-26.0 N BASE EXCESS (test code = EDIE) -4.0 mmol/L -4-4 N ABG O2 SATURATION (test code = SATA) 99 % 90-100 N FIO2 (test code = FIO2A) 40 % ABG DELIVERY (test code = HIRO) Vent ABG VENT MODE (test code = MODEA) AC v con ABG VENT RESP RATE (test code = RRA) 10 /MIN ABG TIDAL VOLUME (test code = TVA) 450 ml ABG PEEP (test code = PEEPA) 5 cmH2O Performed by certified cable machine operator at [facility] ABG TEMPERATURE (test code = TEMPA) 97.7 F ABG SITE (test code = SITEA) Art line PREDICTED AA GRADIENT (test code = AP) 60 PREDICTED PO2 (test code = OP) 171 a/A RATIO (test code = RATIO) 0.60 TCO2 ARTERIAL (test code = TCO2A) 24 A-A GRADIENT (test code = AAGRADE) 92 ARTERIAL BLOOD [id number] 14:42:00* Test Item Value Reference Range Interpretation Comments ARTERIAL BLOOD GAS PH (test code = PHA) 7.310 7.35-7.45 L ARTERIAL BLOOD GAS PCO2 (test code = PCO2A) 44.6 mmHg 35-45 N ARTERIAL BLOOD GAS PO2 (test code = PO2A) 140 mmHg 80-100 H BICARBONATE TOTAL HCO3 (test code = HCO3) 22.6 mmol/L 22.0-26.0 N BASE EXCESS (test code = EDIE) -4.0 mmol/L -4-4 N ABG O2 SATURATION (test code = SATA) 99 % 90-100 N FIO2 (test code = FIO2A) 40 % ABG DELIVERY (test code = HIRO) Vent ABG VENT MODE (test code = MODEA) AC v con ABG VENT RESP RATE (test code = RRA) 10 /MIN ABG TIDAL VOLUME (test code = TVA) 450 ml ABG PEEP (test code = PEEPA) 5 cmH2O Performed by certified cable machine operator at [facility] ABG TEMPERATURE (test code = TEMPA) 97.7 F ABG SITE (test code = SITEA) Art line PREDICTED AA GRADIENT (test code = AP) 60 PREDICTED PO2 (test code = OP) 171 a/A RATIO (test code = RATIO) 0.60 TCO2 ARTERIAL (test code = TCO2A) 24 A-A GRADIENT (test code = AAGRADE) 92 ARTERIAL BLOOD [id number] 14:42:00* Test Item Value Reference Range Interpretation Comments ARTERIAL BLOOD GAS PH (test code = PHA) 7.310 7.35-7.45 L ARTERIAL BLOOD GAS PCO2 (test code = PCO2A) 44.6 mmHg 35-45 N ARTERIAL BLOOD GAS PO2 (test code = PO2A) 140 mmHg 80-100 H BICARBONATE TOTAL HCO3 (test code = HCO3) 22.6 mmol/L 22.0-26.0 N BASE EXCESS (test code = EDIE) -4.0 mmol/L -4-4 N ABG O2 SATURATION (test code = SATA) 99 % 90-100 N FIO2 (test code = FIO2A) 40 % ABG DELIVERY (test code = HIRO) Vent ABG VENT MODE (test code = MODEA) AC v con ABG VENT RESP RATE (test code = RRA) 10 /MIN ABG TIDAL VOLUME (test code = TVA) 450 ml ABG PEEP (test code = PEEPA) 5 cmH2O Performed by certified cable machine operator at [facility] ABG TEMPERATURE (test code = TEMPA) 97.7 F ABG SITE (test code = SITEA) Art line PREDICTED AA GRADIENT (test code = AP) 60 PREDICTED PO2 (test code = OP) 171 a/A RATIO (test code = RATIO) 0.60 TCO2 ARTERIAL (test code = TCO2A) 24 A-A GRADIENT (test code = AAGRADE) 92 ARTERIAL BLOOD [id number] 14:15:00* Test Item Value Reference Range Interpretation Comments ARTERIAL BLOOD GAS PH (test code = PHA) 7.439 7.35-7.45 N ARTERIAL BLOOD GAS PCO2 (test code = PCO2A) 34.1 mmHg 35-45 L ARTERIAL BLOOD GAS PO2 (test code = PO2A) 149 mmHg 80-100 H BICARBONATE TOTAL HCO3 (test code = HCO3) 23.2 mmol/L 22.0-26.0 N BASE EXCESS (test code = EDIE) -1.0 mmol/L -4-4 N ABG O2 SATURATION (test code = SATA) 99 % 90-100 N FIO2 (test code = FIO2A) 40 % ABG DELIVERY (test code = HIRO) Vent ABG VENT MODE (test code = MODEA) PSV ABG PEEP (test code = PEEPA) 5 cmH2O ABG PRESSURE SUPPORT (test code = PSABG) 5 cmH2O Performed by certified cable machine operator at [facility] ABG TEMPERATURE (test code = TEMPA) 98.1 F ABG SITE (test code = SITEA) Art line PREDICTED AA GRADIENT (test code = AP) 63 PREDICTED PO2 (test code = OP) 181 a/A RATIO (test code = RATIO) 0.61 TCO2 ARTERIAL (test code = TCO2A) 24 A-A GRADIENT (test code = AAGRADE) 95 PROTHROMBIN [id number] 13:51:00* Test Item Value Reference Range Interpretation Comments PROTHROMBIN TIME PATIENT (test code = PTP) 18.7 SECONDS 9.3-12.9 H INTERNATIONAL NORMAL RATIO (test code = INR) 1.7 0.8-1.2 H TARGET INR BY INDICATION Indication INR1. Prophylaxis of venous thrombosis 2.0 - 3.0 (orthopedic surgery), Prophylaxis of venous thrombosis (other than high-risk surgery), Treatment of Deep Vein Thrombosis/Pulmonary Embolism, Prevention of systemic embolism - Tissue heart valves, Acute Myocardial Infarction (to prevent systemic embolism), Valvular heart disease, Atrial Fibrillation, Bileaflet mechanical valve in aortic position.2. Mechanical prosthetic valves (high risk), 2.5 - 3.5 Presence of Lupus Anticoagulant or Antiphospholipid Antibodies, Prevention of systemic embolism - Acute Myocardial Infarction (to prevent recurrent infarct). COMPREHENSIVE METABOLIC [id number] 13:49:00* Test Item Value Reference Range Interpretation Comments SODIUM (test code = NA) 136 mEq/L 134-147 N POTASSIUM (test code = K) 5.1 mEq/L 3.4-5.0 H CHLORIDE (test code = CL) 106 mEq/L 100-108 N CARBON DIOXIDE (test code = CO2) 25 mEq/L 21-33 N ANION GAP (test code = GAP) 10 0-20 N GLUCOSE (test code = GLU) 118 mg/dL 70-110 H BLOOD UREA NITROGEN (test code = BUN) 17 mg/dL 7-18 N GLOMERULAR FILTRATION RATE (test code = GFR) 64.5 90-95 L Units of measure = ml/min/1.73 m2 CREATININE (test code = CREAT) 0.9 mg/dL 0.6-1.3 N TOTAL PROTEIN (test code = PROT) 6.0 g/dL 6.4-8.2 L ALBUMIN (test code = ALB) 3.50 g/dL 3.4-5.0 N CALCIUM (test code = CA) 8.1 mg/dL 8.0-10.5 N BILIRUBIN TOTAL (test code = BILT) 3.6 MG/DL <1.5 H SGOT/AST (test code = AST) 75 IUnit/L 15-37 H SGPT/ALT (test code = ALT) 27 IUnit/L 15-65 N ALKALINE PHOSPHATASE TOTAL (test code = ALKP) 87 IUnit/L 20-125 N [id number] 13:49:00* Test Item Value Reference Range Interpretation Comments MAGNESIUM (test code = MAG) 2.60 mg/dL 1.8-2.4 H COMPREHENSIVE METABOLIC [id number] 13:43:00* Test Item Value Reference Range Interpretation Comments SODIUM (test code = NA) 136 mEq/L 134-147 N POTASSIUM (test code = K) 5.1 mEq/L 3.4-5.0 H CHLORIDE (test code = CL) 106 mEq/L 100-108 N CARBON DIOXIDE (test code = CO2) 25 mEq/L 21-33 N ANION GAP (test code = GAP) 10 0-20 N GLUCOSE (test code = GLU) 118 mg/dL 70-110 H BLOOD UREA NITROGEN (test code = BUN) 17 mg/dL 7-18 N GLOMERULAR FILTRATION RATE (test code = GFR) 90-95 CREATININE (test code = CREAT) mg/dL 0.6-1.3 TOTAL PROTEIN (test code = PROT) g/dL 6.4-8.2 ALBUMIN (test code = ALB) g/dL 3.4-5.0 CALCIUM (test code = CA) 8.1 mg/dL 8.0-10.5 N BILIRUBIN TOTAL (test code = BILT) MG/DL <1.5 SGOT/AST (test code = AST) IUnit/L 15-37 SGPT/ALT (test code = ALT) IUnit/L 15-65 ALKALINE PHOSPHATASE TOTAL (test code = ALKP) IUnit/L 20-125 [id number] 13:43:00* Test Item Value Reference Range Interpretation Comments MAGNESIUM (test code = MAG) mg/dL 1.8-2.4 CBC W/AUTO [id number] 13:34:00* Test Item Value Reference Range Interpretation Comments WHITE BLOOD CELL (test code = WBC) 14.98 x10 3/uL 4.5-11.0 H RED BLOOD CELL (test code = RBC) 2.71 x10 6/uL 3.54-5.02 L HEMOGLOBIN (test code = HGB) 7.5 g/dL 11.0-15.0 L HEMATOCRIT (test code = HCT) 23.6 % 33.0-45.0 L MEAN CELL VOLUME (test code = MCV) 87.1 fL 81.0-99.0 N MEAN CELL HGB (test code = MCH) 27.7 pg 27.0-33.0 N MEAN CELL HGB CONCETRATION (test code = MCHC) 31.8 g/dL 33.0-37. 0 L RED CELL DISTRIBUTION WIDTH CV (test code = RDW) 16.3 % 11.5- 14.5 H RED CELL DISTRIBUTION WIDTH SD (test code = RDW-SD) 49.9 fL 37 .0-54.0 N PLATELET COUNT (test code = PLT) 128 x10 3/uL 150-400 L MEAN PLATELET VOLUME (test code = MPV) 10.8 fL 7.0-9.0 H NEUTROPHIL % (test code = NT%) 70.2 % 56.0-77.0 N IMMATURE GRANULOCYTE % (test code = IG%) 0.9 % 0.0-2.0 N LYMPHOCYTE % (test code = LY%) 18.9 % 14.0-32.0 N MONOCYTE % (test code = MO%) 9.5 % 4.8-9.0 H EOSINOPHIL % (test code = EO%) 0.1 % 0.3-3.7 L BASOPHIL % (test code = BA%) 0.4 % 0.0-2.0 N NUCLEATED RBC % (test code = NRBC%) 0.7 % 0-0 H NEUTROPHIL # (test code = NT#) 10.53 x10 3/uL 2.0-7.6 H IMMATURE GRANULOCYTE # (test code = IG#) 0.13 x10 3/uL 0.00-0.03 H LYMPHOCYTE # (test code = LY#) 2.83 x10 3/uL 1.0-3.8 N MONOCYTE # (test code = MO#) 1.42 x10 3/uL 0.1-0.8 H EOSINOPHIL # (test code = EO#) 0.01 x10 3/uL 0.0-0.2 N BASOPHIL # (test code = BA#) 0.06 x10 3/uL 0.0-0.2 N NUCLEATED RBC # (test code = NRBC#) 0.11 x10 3/uL 0.0-0.1 H MANUAL DIFF REQUIRED (test code = MDIFF) NO [id number] 13:30:00* Test Item Value Reference Range Interpretation Comments GLUBED (test code = GLUBED) 91 MG/DL 70-110 N Performed by certified cable machine operator at [facility] ARTERIAL BLOOD [id number] 12:31:00* Test Item Value Reference Range Interpretation Comments ARTERIAL BLOOD GAS PH (test code = PHA) 7.439 7.35-7.45 N ARTERIAL BLOOD GAS PCO2 (test code = PCO2A) 34.1 mmHg 35-45 L ARTERIAL BLOOD GAS PO2 (test code = PO2A) 149 mmHg 80-100 H BICARBONATE TOTAL HCO3 (test code = HCO3) 23.2 mmol/L 22.0-26.0 N BASE EXCESS (test code = EDIE) -1.0 mmol/L -4-4 N ABG O2 SATURATION (test code = SATA) 99 % 90-100 N FIO2 (test code = FIO2A) 40 % ABG DELIVERY (test code = HIRO) Vent ABG VENT MODE (test code = MODEA) PSV ABG PEEP (test code = PEEPA) 5 cmH2O ABG PRESSURE SUPPORT (test code = PSABG) 5 cmH2O Performed by certified cable machine operator at [facility] ABG TEMPERATURE (test code = TEMPA) 98.1 F ABG SITE (test code = SITEA) Art line PREDICTED AA GRADIENT (test code = AP) 63 PREDICTED PO2 (test code = OP) 181 a/A RATIO (test code = RATIO) 0.61 TCO2 ARTERIAL (test code = TCO2A) 24 A-A GRADIENT (test code = AAGRADE) 95 ARTERIAL BLOOD [id number] 12:31:00* Test Item Value Reference Range Interpretation Comments ARTERIAL BLOOD GAS PH (test code = PHA) 7.439 7.35-7.45 N ARTERIAL BLOOD GAS PCO2 (test code = PCO2A) 34.1 mmHg 35-45 L ARTERIAL BLOOD GAS PO2 (test code = PO2A) 149 mmHg 80-100 H BICARBONATE TOTAL HCO3 (test code = HCO3) 23.2 mmol/L 22.0-26.0 N BASE EXCESS (test code = EDIE) -1.0 mmol/L -4-4 N ABG O2 SATURATION (test code = SATA) 99 % 90-100 N FIO2 (test code = FIO2A) 40 % ABG DELIVERY (test code = HIRO) Vent ABG VENT MODE (test code = MODEA) PSV ABG PEEP (test code = PEEPA) 5 cmH2O ABG PRESSURE SUPPORT (test code = PSABG) 5 cmH2O Performed by certified cable machine operator at [facility] ABG TEMPERATURE (test code = TEMPA) 98.1 F ABG SITE (test code = SITEA) Art line PREDICTED AA GRADIENT (test code = AP) 63 PREDICTED PO2 (test code = OP) 181 a/A RATIO (test code = RATIO) 0.61 TCO2 ARTERIAL (test code = TCO2A) 24 A-A GRADIENT (test code = AAGRADE) 95 ARTERIAL BLOOD [id number] 12:31:00* Test Item Value Reference Range Interpretation Comments ARTERIAL BLOOD GAS PH (test code = PHA) 7.310 7.35-7.45 L ARTERIAL BLOOD GAS PCO2 (test code = PCO2A) 44.6 mmHg 35-45 N ARTERIAL BLOOD GAS PO2 (test code = PO2A) 140 mmHg 80-100 H BICARBONATE TOTAL HCO3 (test code = HCO3) 22.6 mmol/L 22.0-26.0 N BASE EXCESS (test code = EDIE) -4.0 mmol/L -4-4 N ABG O2 SATURATION (test code = SATA) 99 % 90-100 N FIO2 (test code = FIO2A) 40 % ABG DELIVERY (test code = HIRO) Vent ABG VENT MODE (test code = MODEA) AC v con ABG VENT RESP RATE (test code = RRA) 10 /MIN ABG TIDAL VOLUME (test code = TVA) 450 ml ABG PEEP (test code = PEEPA) 5 cmH2O Performed by certified cable machine operator at [facility] ABG TEMPERATURE (test code = TEMPA) 97.7 F ABG SITE (test code = SITEA) Art line PREDICTED AA GRADIENT (test code = AP) 60 PREDICTED PO2 (test code = OP) 171 a/A RATIO (test code = RATIO) 0.60 TCO2 ARTERIAL (test code = TCO2A) 24 A-A GRADIENT (test code = AAGRADE) 92 ARTERIAL BLOOD [id number] 12:31:00* Test Item Value Reference Range Interpretation Comments ARTERIAL BLOOD GAS PH (test code = PHA) 7.310 7.35-7.45 L ARTERIAL BLOOD GAS PCO2 (test code = PCO2A) 44.6 mmHg 35-45 N ARTERIAL BLOOD GAS PO2 (test code = PO2A) 140 mmHg 80-100 H BICARBONATE TOTAL HCO3 (test code = HCO3) 22.6 mmol/L 22.0-26.0 N BASE EXCESS (test code = EDIE) -4.0 mmol/L -4-4 N ABG O2 SATURATION (test code = SATA) 99 % 90-100 N FIO2 (test code = FIO2A) 40 % ABG DELIVERY (test code = HIRO) Vent ABG VENT MODE (test code = MODEA) AC v con ABG VENT RESP RATE (test code = RRA) 10 /MIN ABG TIDAL VOLUME (test code = TVA) 450 ml ABG PEEP (test code = PEEPA) 5 cmH2O Performed by certified cable machine operator at [facility] ABG TEMPERATURE (test code = TEMPA) 97.7 F ABG SITE (test code = SITEA) Art line PREDICTED AA GRADIENT (test code = AP) 60 PREDICTED PO2 (test code = OP) 171 a/A RATIO (test code = RATIO) 0.60 TCO2 ARTERIAL (test code = TCO2A) 24 A-A GRADIENT (test code = AAGRADE) 92 ARTERIAL BLOOD [id number] 12:29:00* Test Item Value Reference Range Interpretation Comments ARTERIAL BLOOD GAS PH (test code = PHA) 7.439 7.35-7.45 N ARTERIAL BLOOD GAS PCO2 (test code = PCO2A) 34.1 mmHg 35-45 L ARTERIAL BLOOD GAS PO2 (test code = PO2A) 149 mmHg 80-100 H BICARBONATE TOTAL HCO3 (test code = HCO3) 23.2 mmol/L 22.0-26.0 N BASE EXCESS (test code = EDIE) -1.0 mmol/L -4-4 N ABG O2 SATURATION (test code = SATA) 99 % 90-100 N FIO2 (test code = FIO2A) 40 % ABG DELIVERY (test code = HIRO) Vent ABG VENT MODE (test code = MODEA) PSV ABG PEEP (test code = PEEPA) 5 cmH2O ABG PRESSURE SUPPORT (test code = PSABG) 5 cmH2O Performed by certified cable machine operator at [facility] ABG TEMPERATURE (test code = TEMPA) 98.1 F ABG SITE (test code = SITEA) Art line PREDICTED AA GRADIENT (test code = AP) 63 PREDICTED PO2 (test code = OP) 181 a/A RATIO (test code = RATIO) 0.61 TCO2 ARTERIAL (test code = TCO2A) 24 A-A GRADIENT (test code = AAGRADE) 95 ARTERIAL BLOOD [id number] 12:29:00* Test Item Value Reference Range Interpretation Comments ARTERIAL BLOOD GAS PH (test code = PHA) 7.310 7.35-7.45 L ARTERIAL BLOOD GAS PCO2 (test code = PCO2A) 44.6 mmHg 35-45 N ARTERIAL BLOOD GAS PO2 (test code = PO2A) 140 mmHg 80-100 H BICARBONATE TOTAL HCO3 (test code = HCO3) 22.6 mmol/L 22.0-26.0 N BASE EXCESS (test code = EDIE) -4.0 mmol/L -4-4 N ABG O2 SATURATION (test code = SATA) 99 % 90-100 N FIO2 (test code = FIO2A) 40 % ABG DELIVERY (test code = HIRO) Vent ABG VENT MODE (test code = MODEA) AC v con ABG VENT RESP RATE (test code = RRA) 10 /MIN ABG TIDAL VOLUME (test code = TVA) 450 ml ABG PEEP (test code = PEEPA) 5 cmH2O Performed by certified cable machine operator at [facility] ABG TEMPERATURE (test code = TEMPA) 97.7 F ABG SITE (test code = SITEA) Art line PREDICTED AA GRADIENT (test code = AP) 60 PREDICTED PO2 (test code = OP) 171 a/A RATIO (test code = RATIO) 0.60 TCO2 ARTERIAL (test code = TCO2A) 24 A-A GRADIENT (test code = AAGRADE) 92 ARTERIAL BLOOD [id number] 12:28:00* Test Item Value Reference Range Interpretation Comments ARTERIAL BLOOD GAS PH (test code = PHA) 7.439 7.35-7.45 N ARTERIAL BLOOD GAS PCO2 (test code = PCO2A) 34.1 mmHg 35-45 L ARTERIAL BLOOD GAS PO2 (test code = PO2A) 149 mmHg 80-100 H BICARBONATE TOTAL HCO3 (test code = HCO3) 23.2 mmol/L 22.0-26.0 N BASE EXCESS (test code = EDIE) -1.0 mmol/L -4-4 N ABG O2 SATURATION (test code = SATA) 99 % 90-100 N FIO2 (test code = FIO2A) 40 % ABG DELIVERY (test code = HIRO) Vent ABG VENT MODE (test code = MODEA) PSV ABG PEEP (test code = PEEPA) 5 cmH2O ABG PRESSURE SUPPORT (test code = PSABG) 5 cmH2O Performed by certified cable machine operator at [facility] ABG TEMPERATURE (test code = TEMPA) 98.1 F ABG SITE (test code = SITEA) Art line PREDICTED AA GRADIENT (test code = AP) 63 PREDICTED PO2 (test code = OP) 181 a/A RATIO (test code = RATIO) 0.61 TCO2 ARTERIAL (test code = TCO2A) 24 A-A GRADIENT (test code = AAGRADE) 95 ARTERIAL BLOOD [id number] 12:28:00* Test Item Value Reference Range Interpretation Comments ARTERIAL BLOOD GAS PH (test code = PHA) 7.439 7.35-7.45 N ARTERIAL BLOOD GAS PCO2 (test code = PCO2A) 34.1 mmHg 35-45 L ARTERIAL BLOOD GAS PO2 (test code = PO2A) 149 mmHg 80-100 H BICARBONATE TOTAL HCO3 (test code = HCO3) 23.2 mmol/L 22.0-26.0 N BASE EXCESS (test code = EDIE) -1.0 mmol/L -4-4 N ABG O2 SATURATION (test code = SATA) 99 % 90-100 N FIO2 (test code = FIO2A) 40 % ABG DELIVERY (test code = HIRO) Vent ABG VENT MODE (test code = MODEA) PSV ABG PEEP (test code = PEEPA) 5 cmH2O ABG PRESSURE SUPPORT (test code = PSABG) 5 cmH2O Performed by certified cable machine operator at [facility] ABG TEMPERATURE (test code = TEMPA) 98.1 F ABG SITE (test code = SITEA) Art line PREDICTED AA GRADIENT (test code = AP) 63 PREDICTED PO2 (test code = OP) 181 a/A RATIO (test code = RATIO) 0.61 TCO2 ARTERIAL (test code = TCO2A) 24 A-A GRADIENT (test code = AAGRADE) 95 ARTERIAL BLOOD [id number] 12:28:00* Test Item Value Reference Range Interpretation Comments ARTERIAL BLOOD GAS PH (test code = PHA) 7.439 7.35-7.45 N ARTERIAL BLOOD GAS PCO2 (test code = PCO2A) 34.1 mmHg 35-45 L ARTERIAL BLOOD GAS PO2 (test code = PO2A) 149 mmHg 80-100 H BICARBONATE TOTAL HCO3 (test code = HCO3) 23.2 mmol/L 22.0-26.0 N BASE EXCESS (test code = EDIE) -1.0 mmol/L -4-4 N ABG O2 SATURATION (test code = SATA) 99 % 90-100 N FIO2 (test code = FIO2A) 40 % ABG DELIVERY (test code = HIRO) Vent ABG VENT MODE (test code = MODEA) PSV ABG PEEP (test code = PEEPA) 5 cmH2O ABG PRESSURE SUPPORT (test code = PSABG) 5 cmH2O Performed by certified cable machine operator at [facility] ABG TEMPERATURE (test code = TEMPA) 98.1 F ABG SITE (test code = SITEA) Art line PREDICTED AA GRADIENT (test code = AP) 63 PREDICTED PO2 (test code = OP) 181 a/A RATIO (test code = RATIO) 0.61 TCO2 ARTERIAL (test code = TCO2A) 24 A-A GRADIENT (test code = AAGRADE) 95 ARTERIAL BLOOD [id number] 12:28:00* Test Item Value Reference Range Interpretation Comments ARTERIAL BLOOD GAS PH (test code = PHA) 7.310 7.35-7.45 L ARTERIAL BLOOD GAS PCO2 (test code = PCO2A) 44.6 mmHg 35-45 N ARTERIAL BLOOD GAS PO2 (test code = PO2A) 140 mmHg 80-100 H BICARBONATE TOTAL HCO3 (test code = HCO3) 22.6 mmol/L 22.0-26.0 N BASE EXCESS (test code = EDIE) -4.0 mmol/L -4-4 N ABG O2 SATURATION (test code = SATA) 99 % 90-100 N FIO2 (test code = FIO2A) 40 % ABG DELIVERY (test code = HIRO) Vent ABG VENT MODE (test code = MODEA) AC v con ABG VENT RESP RATE (test code = RRA) 10 /MIN ABG TIDAL VOLUME (test code = TVA) 450 ml ABG PEEP (test code = PEEPA) 5 cmH2O Performed by certified cable machine operator at [facility] ABG TEMPERATURE (test code = TEMPA) 97.7 F ABG SITE (test code = SITEA) Art line PREDICTED AA GRADIENT (test code = AP) 60 PREDICTED PO2 (test code = OP) 171 a/A RATIO (test code = RATIO) 0.60 TCO2 ARTERIAL (test code = TCO2A) 24 A-A GRADIENT (test code = AAGRADE) 92 ARTERIAL BLOOD [id number] 12:28:00* Test Item Value Reference Range Interpretation Comments ARTERIAL BLOOD GAS PH (test code = PHA) 7.310 7.35-7.45 L ARTERIAL BLOOD GAS PCO2 (test code = PCO2A) 44.6 mmHg 35-45 N ARTERIAL BLOOD GAS PO2 (test code = PO2A) 140 mmHg 80-100 H BICARBONATE TOTAL HCO3 (test code = HCO3) 22.6 mmol/L 22.0-26.0 N BASE EXCESS (test code = EDIE) -4.0 mmol/L -4-4 N ABG O2 SATURATION (test code = SATA) 99 % 90-100 N FIO2 (test code = FIO2A) 40 % ABG DELIVERY (test code = HIRO) Vent ABG VENT MODE (test code = MODEA) AC v con ABG VENT RESP RATE (test code = RRA) 10 /MIN ABG TIDAL VOLUME (test code = TVA) 450 ml ABG PEEP (test code = PEEPA) 5 cmH2O Performed [facility] certified [facility] ABG TEMPERATURE (test code = TEMPA) 97.7 F ABG SITE (test code = SITEA) Art line PREDICTED AA GRADIENT (test code = AP) 60 PREDICTED PO2 (test code = OP) 171 a/A RATIO (test code = RATIO) 0.60 TCO2 ARTERIAL (test code = TCO2A) 24 A-A GRADIENT (test code = AAGRADE) 92 ARTERIAL BLOOD [id number] 12:28:00* Test Item Value Reference Range Interpretation Comments ARTERIAL BLOOD GAS PH (test code = PHA) 7.310 7.35-7.45 L ARTERIAL BLOOD GAS PCO2 (test code = PCO2A) 44.6 mmHg 35-45 N ARTERIAL BLOOD GAS PO2 (test code = PO2A) 140 mmHg 80-100 H BICARBONATE TOTAL HCO3 (test code = HCO3) 22.6 mmol/L 22.0-26.0 N BASE EXCESS (test code = EDIE) -4.0 mmol/L -4-4 N ABG O2 SATURATION (test code = SATA) 99 % 90-100 N FIO2 (test code = FIO2A) 40 % ABG DELIVERY (test code = HIRO) Vent ABG VENT MODE (test code = MODEA) AC v con ABG VENT RESP RATE (test code = RRA) 10 /MIN ABG TIDAL VOLUME (test code = TVA) 450 ml ABG PEEP (test code = PEEPA) 5 cmH2O Performed by certified cable machine operator at [facility] ABG TEMPERATURE (test code = TEMPA) 97.7 F ABG SITE (test code = SITEA) Art line PREDICTED AA GRADIENT (test code = AP) 60 PREDICTED PO2 (test code = OP) 171 a/A RATIO (test code = RATIO) 0.60 TCO2 ARTERIAL (test code = TCO2A) 24 A-A GRADIENT (test code = AAGRADE) 92 [id number] 12:09:00* Test Item Value Reference Range Interpretation Comments GLUBED (test code = GLUBED) 89 MG/DL 70-110 N Performed by certified cable machine operator at [facility] [id number] 12:09:00* Test Item Value Reference Range Interpretation Comments GLUBED (test code = GLUBED) 49 MG/DL 70-110 L Performed by certified cable machine operator at [facility] ARTERIAL BLOOD [id number] 12:02:00* Test Item Value Reference Range Interpretation Comments ARTERIAL BLOOD GAS PH (test code = PHA) 7.439 7.35-7.45 N ARTERIAL BLOOD GAS PCO2 (test code = PCO2A) 34.1 mmHg 35-45 L ARTERIAL BLOOD GAS PO2 (test code = PO2A) 149 mmHg 80-100 H BICARBONATE TOTAL HCO3 (test code = HCO3) 23.2 mmol/L 22.0-26.0 N BASE EXCESS (test code = EDIE) -1.0 mmol/L -4-4 N ABG O2 SATURATION (test code = SATA) 99 % 90-100 N FIO2 (test code = FIO2A) 40 % ABG DELIVERY (test code = HIRO) Vent ABG VENT MODE (test code = MODEA) PSV ABG PEEP (test code = PEEPA) 5 cmH2O ABG PRESSURE SUPPORT (test code = PSABG) 5 cmH2O Performed by certified cable machine operator at [facility] ABG TEMPERATURE (test code = TEMPA) 98.1 F ABG SITE (test code = SITEA) Art line PREDICTED AA GRADIENT (test code = AP) 63 PREDICTED PO2 (test code = OP) 181 a/A RATIO (test code = RATIO) 0.61 TCO2 ARTERIAL (test code = TCO2A) 24 A-A GRADIENT (test code = AAGRADE) 95 ARTERIAL BLOOD [id number] 12:02:00* Test Item Value Reference Range Interpretation Comments ARTERIAL BLOOD GAS PH (test code = PHA) 7.439 7.35-7.45 N ARTERIAL BLOOD GAS PCO2 (test code = PCO2A) 34.1 mmHg 35-45 L ARTERIAL BLOOD GAS PO2 (test code = PO2A) 149 mmHg 80-100 H BICARBONATE TOTAL HCO3 (test code = HCO3) 23.2 mmol/L 22.0-26.0 N BASE EXCESS (test code = EDIE) -1.0 mmol/L -4-4 N ABG O2 SATURATION (test code = SATA) 99 % 90-100 N FIO2 (test code = FIO2A) 40 % ABG DELIVERY (test code = HIRO) Vent ABG VENT MODE (test code = MODEA) PSV ABG PEEP (test code = PEEPA) 5 cmH2O ABG PRESSURE SUPPORT (test code = PSABG) 5 cmH2O Performed by certified cable machine operator at [facility] ABG TEMPERATURE (test code = TEMPA) 98.1 F ABG SITE (test code = SITEA) Art line PREDICTED AA GRADIENT (test code = AP) 63 PREDICTED PO2 (test code = OP) 181 a/A RATIO (test code = RATIO) 0.61 TCO2 ARTERIAL (test code = TCO2A) 24 A-A GRADIENT (test code = AAGRADE) 95 ARTERIAL BLOOD [id number] 12:02:00* Test Item Value Reference Range Interpretation Comments ARTERIAL BLOOD GAS PH (test code = PHA) 7.310 7.35-7.45 L ARTERIAL BLOOD GAS PCO2 (test code = PCO2A) 44.6 mmHg 35-45 N ARTERIAL BLOOD GAS PO2 (test code = PO2A) 140 mmHg 80-100 H BICARBONATE TOTAL HCO3 (test code = HCO3) 22.6 mmol/L 22.0-26.0 N BASE EXCESS (test code = EDIE) -4.0 mmol/L -4-4 N ABG O2 SATURATION (test code = SATA) 99 % 90-100 N FIO2 (test code = FIO2A) 40 % ABG DELIVERY (test code = HIRO) Vent ABG VENT MODE (test code = MODEA) AC v con ABG VENT RESP RATE (test code = RRA) 10 /MIN ABG TIDAL VOLUME (test code = TVA) 450 ml ABG PEEP (test code = PEEPA) 5 cmH2O Performed by certified cable machine operator at [facility] ABG TEMPERATURE (test code = TEMPA) 97.7 F ABG SITE (test code = SITEA) Art line PREDICTED AA GRADIENT (test code = AP) 60 PREDICTED PO2 (test code = OP) 171 a/A RATIO (test code = RATIO) 0.60 TCO2 ARTERIAL (test code = TCO2A) 24 A-A GRADIENT (test code = AAGRADE) 92 HGB [id number] 08:59:00* Test Item Value Reference Range Interpretation Comments HEMOGLOBIN (test code = HGB) 7.3 g/dL 11.0-15.0 L HEMATOCRIT (test code = HCT) 23.0 % 33.0-45.0 L [id number] 08:51:00* Test Item Value Reference Range Interpretation Comments GLUBED (test code = GLUBED) 115 MG/DL 70-110 H Performed by certified cable machine operator at [facility] - XR CHEST 1 [id number] 08:09:00 FAX: Santi De León MD [phone] [place]: St: ADM FAX: Marvel Donato I [phone] FAX: Dennys Newell DO [phone] FAX: Isabel Weber [phone] Name: MAMIEVANDATH 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 FINDINGS: Left chest tube, right [place] cat heter and mediastinal drain in stable position compared with 05/29/2019. The patient has been extubated. Hazy vascular congestion in each lung and min imal basilar atelectasis stable. No pneumothorax. The heart and mediastin al contours are stable. IMPRESSION: Stable exam following extubation SL: [id number] E lectronically Signed by Erinn Jimenez on 05/30/2019 at 0809 Reported and signed by: Dex Jimenez M.D. CC: Santi Cortés MD; Marvel Espinosa MD; Dennys Aguilar DO; Ann bernstein NP Technologist: Ramírez Daly(Ramírez) Trnscrd Date/Time/By: 05/30/2019 (808) : By: RodriguezETG Orig Print D/T: S: 05/30/2019 (811) PAGE 1 Signed Report [id number] 07:40:00* Test Item Value Reference Range Interpretation Comments GLUBED (test code = GLUBED) 101 MG/DL 70-110 N Performed by certified cable machine operator at [facility] [id number] 07:40:00* Test Item Value Reference Range Interpretation Comments GLUBED (test code = GLUBED) 88 MG/DL 70-110 N Performed by certified cable machine operator at [facility] [id number] 07:37:00* Test Item Value Reference Range Interpretation Comments GLUBED (test code = GLUBED) 219 MG/DL 70-110 H Performed by certified cable machine operator at [facility] LACTIC ACID 2ND [id number] 06:18:00* Test Item Value Reference Range Interpretation Comments LACTIC ACID 2ND REPEAT (test code = LACT2) 3.2 mmol/L 0.4-1.9 H BASIC METABOLIC [id number] 04:41:00* Test Item Value Reference Range Interpretation Comments SODIUM (test code = NA) 141 mEq/L 134-147 N POTASSIUM (test code = K) 4.6 mEq/L 3.4-5.0 CHLORIDE (test code = CL) 110 mEq/L 100-108 H CARBON DIOXIDE (test code = CO2) 26 mEq/L 21-33 N ANION GAP (test code = GAP) 10 0-20 N GLUCOSE (test code = GLU) 124 mg/dL 70-110 H BLOOD UREA NITROGEN (test code = BUN) 15 mg/dL 7-18 N GLOMERULAR FILTRATION RATE (test code = GFR) 73.9 90-95 L Units of measure = ml/min/1.73 m2 CREATININE (test code = CREAT) 0.8 mg/dL 0.6-1.3 N CALCIUM (test code = CA) 7.7 mg/dL 8.0-10.5 L COMMENTS: POD #1HEPATIC FUNCTION [id number] 04:41:00* Test Item Value Reference Range Interpretation Comments TOTAL PROTEIN (test code = PROT) 5.7 g/dL 6.4-8.2 L ALBUMIN (test code = ALB) 3.30 g/dL 3.4-5.0 L BILIRUBIN TOTAL (test code = BILT) 1.2 MG/DL <1.5 BILIRUBIN DIRECT (test code = BILD) 0.30 MG/DL 0.0-0.30 N BILIRUBIN INDIRECT (test code = BILIND) 0.90 MG/DL SGOT/AST (test code = AST) 79 IUnit/L 15-37 H SGPT/ALT (test code = ALT) 28 IUnit/L 15-65 N ALKALINE PHOSPHATASE TOTAL (test code = ALKP) 75 IUnit/L 20-125 N COMMENTS: POD #[id number] 04:41:00* Test Item Value Reference Range Interpretation Comments MAGNESIUM (test code = MAG) 2.10 mg/dL 1.8-2.4 N COMMENTS: POD #1CBC W/AUTO [id number] 04:28:00* Test Item Value Reference Range Interpretation Comments WHITE BLOOD CELL (test code = WBC) 14.55 x10 3/uL 4.5-11.0 H RED BLOOD CELL (test code = RBC) 2.32 x10 6/uL 3.54-5.02 L HEMOGLOBIN (test code = HGB) 6.4 g/dL 11.0-15.0 LL HEMATOCRIT (test code = HCT) 20.6 % 33.0-45.0 L MEAN CELL VOLUME (test code = MCV) 88.8 fL 81.0-99.0 N MEAN CELL HGB (test code = MCH) 27.6 pg 27.0-33.0 N MEAN CELL HGB CONCETRATION (test code = MCHC) 31.1 g/dL 33.0-37. 0 L RED CELL DISTRIBUTION WIDTH CV (test code = RDW) 15.6 % 11.5- 14.5 H RED CELL DISTRIBUTION WIDTH SD (test code = RDW-SD) 49.1 fL 37 .0-54.0 N PLATELET COUNT (test code = PLT) 163 x10 3/uL 150-400 N MEAN PLATELET VOLUME (test code = MPV) 11.4 fL 7.0-9.0 H NEUTROPHIL % (test code = NT%) 74.1 % 56.0-77.0 N IMMATURE GRANULOCYTE % (test code = IG%) 0.8 % 0.0-2.0 N LYMPHOCYTE % (test code = LY%) 15.6 % 14.0-32.0 N MONOCYTE % (test code = MO%) 9.1 % 4.8-9.0 H EOSINOPHIL % (test code = EO%) 0.1 % 0.3-3.7 L BASOPHIL % (test code = BA%) 0.3 % 0.0-2.0 N NUCLEATED RBC % (test code = NRBC%) 0.2 % 0-0 H NEUTROPHIL # (test code = NT#) 10.79 x10 3/uL 2.0-7.6 H IMMATURE GRANULOCYTE # (test code = IG#) 0.12 x10 3/uL 0.00-0.03 H LYMPHOCYTE # (test code = LY#) 2.27 x10 3/uL 1.0-3.8 N MONOCYTE # (test code = MO#) 1.32 x10 3/uL 0.1-0.8 H EOSINOPHIL # (test code = EO#) 0.01 x10 3/uL 0.0-0.2 N BASOPHIL # (test code = BA#) 0.04 x10 3/uL 0.0-0.2 N NUCLEATED RBC # (test code = NRBC#) 0.03 x10 3/uL 0.0-0.1 N MANUAL DIFF REQUIRED (test code = MDIFF) NO COMMENTS: Daily while on HeparinLACTIC ACID [id number] 03:06:00* Test Item Value Reference Range Interpretation Comments LACTIC ACID REPEAT (test code = LACTR) 3.1 mmol/l 0.4-1.9 H LACTIC [id number] 00:37:00* Test Item Value Reference Range Interpretation Comments LACTIC ACID (test code = LACT) 4.3 mmol/L 0.4-1.9 HH [id number] 23:19:00* Test Item Value Reference Range Interpretation Comments GLUBED (test code = GLUBED) 219 MG/DL 70-110 H Performed by certified cable machine operator at [facility] [id number] 23:19:00* Test Item Value Reference Range Interpretation Comments GLUBED (test code = GLUBED) 112 MG/DL 70-110 H Performed by certified cable machine operator at [facility] [id number] 23:19:00* Test Item Value Reference Range Interpretation Comments GLUBED (test code = GLUBED) 72 MG/DL 70-110 N Performed by certified cable machine operator at [facility] [id number] 23:19:00* Test Item Value Reference Range Interpretation Comments GLUBED (test code = GLUBED) 83 MG/DL 70-110 N Performed by certified cable machine operator at [facility] [id number] 23:19:00* Test Item Value Reference Range Interpretation Comments GLUBED (test code = GLUBED) 118 MG/DL 70-110 H Performed by certified cable machine operator at [facility] [id number] 23:19:00* Test Item Value Reference Range Interpretation Comments GLUBED (test code = GLUBED) 57 MG/DL 70-110 L Performed by certified cable machine operator at [facility] [id number] 23:19:00* Test Item Value Reference Range Interpretation Comments GLUBED (test code = GLUBED) 168 MG/DL 70-110 H Performed by certified cable machine operator at [facility] [id number] 23:19:00* Test Item Value Reference Range Interpretation Comments GLUBED (test code = GLUBED) 114 MG/DL 70-110 H Performed by certified cable machine operator at [facility] [id number] 23:19:00* Test Item Value Reference Range Interpretation Comments GLUBED (test code = GLUBED) 77 MG/DL 70-110 N Performed by certified cable machine operator at [facility] [id number] 23:19:00* Test Item Value Reference Range Interpretation Comments GLUBED (test code = GLUBED) 60 MG/DL 70-110 L Performed by certified cable machine operator at [facility] LACTIC ACID 2ND [id number] 19:16:00* Test Item Value Reference Range Interpretation Comments LACTIC ACID 2ND REPEAT (test code = LACT2) 5.3 mmol/L 0.4-1.9 LACTIC ACID [id number] 16:36:00* Test Item Value Reference Range Interpretation Comments LACTIC ACID REPEAT (test code = LACTR) 4.6 mmol/l 0.4-1.9 HH - XR CHEST 1 [id number] 15:09:00 FAX: Santi De León MD [phone] [place]: St: ADM FAX: Marvel Donato I [phone] FAX: Dennys Newell DO [phone] FAX: Isabel Weber [phone] Name: VANDA HATCH 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 TECHNIQUE: A single view fron sylvia radiograph of the chest was obtained. COMPARISONS: Chest x-ray 05/18/2019 FINDINGS: There are new surgical changes of sternotomy with intact sternal wires. There is no acute osseous fractu re or dislocation. There is no subdiaphragmatic free gas. There is an endotracheal tube that terminates 7 cm above the willie. There is a right neck access central venous catheter with catheter tip in the main pulmonary artery outflow tract. There is a thoracostomy tube that terminates in the lateral left basal hemithorax. There is a thoraco stomy tube that terminates in the medial infrahilar left hemithorax, versu s mediastinum. Mediastinal drainage catheter is also present. There is mild cardiomegaly. There is no mediastinal widening. There a re surgical clips along the left mediastinum. There is no pneumoth orax, pleural effusion or organized pneumonia. No pulmonary edema. IMPRESSION: 1. No acute cardiopulmonary process. 2. Stable cardiomegaly. No pulmonary edema to suggest congestive heart failure. No mediastinal widening. 3. The endotracheal tube te rminates 7 cm above the willie. at 1509 * * Reported and signed by: Montana Goldman D.O. PAGE 1 Signed Report (CONTINUED) FAX: Santi De León MD [phone] [place]: St: ADM FAX: Marvel Coffey I [phone] FAX: Dennys Newell DO [phone] F AX: Isabel Weber [phone] Name: MAMIEVANDA HANSEN [facility] : 1960 Age/S: 58/F [address] [place] [address] Unit #: [id number] Loc: [address] [facility] 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: [id number] Dis Date: Status: ADM IN PHONE #: [phone] Exam Date: 07/2019 1505 FAX #: [phone] Reason: Cardiac Surge ry Post Op EXAMS: CPT CODE: [id number] XR CHEST 1 V 7 1045 <Continued> CC: Santi Cortés MD; Marvel Espinosa MD; Dennys Aguilar DO; Ann Scherer NP Technologist: RT Marita(R) Trnscrd Date/Time/By: 05/29/2019 (2461) : By: [email or web address] Orig Print D/T: S: 05/29/2019 (4755) PAGE 2 Signed Report ARTERIAL BLOOD [id number] 14:41:00* Test Item Value Reference Range Interpretation Comments ARTERIAL BLOOD GAS PH (test code = PHA) 7.439 7.35-7.45 N ARTERIAL BLOOD GAS PCO2 (test code = PCO2A) 34.1 mmHg 35-45 L ARTERIAL BLOOD GAS PO2 (test code = PO2A) 149 mmHg 80-100 H BICARBONATE TOTAL HCO3 (test code = HCO3) 23.2 mmol/L 22.0-26.0 N BASE EXCESS (test code = EDIE) -1.0 mmol/L -4-4 N ABG O2 SATURATION (test code = SATA) 99 % 90-100 N FIO2 (test code = FIO2A) 40 % ABG DELIVERY (test code = HIRO) Vent ABG VENT MODE (test code = MODEA) PSV ABG PEEP (test code = PEEPA) 5 cmH2O ABG PRESSURE SUPPORT (test code = PSABG) 5 cmH2O Performed by certified cable machine operator at [facility] ABG TEMPERATURE (test code = TEMPA) 98.1 F ABG SITE (test code = SITEA) Art line PREDICTED AA GRADIENT (test code = AP) 63 PREDICTED PO2 (test code = OP) 181 a/A RATIO (test code = RATIO) 0.61 TCO2 ARTERIAL (test code = TCO2A) 24 A-A GRADIENT (test code = AAGRADE) 95 PROTHROMBIN [id number] 14:17:00* Test Item Value Reference Range Interpretation Comments PROTHROMBIN TIME PATIENT (test code = PTP) 17.1 SECONDS 9.3-12.9 H INTERNATIONAL NORMAL RATIO (test code = INR) 1.6 0.8-1.2 H TARGET INR BY INDICATION Indication INR1. Prophylaxis of venous thrombosis 2.0 - 3.0 (orthopedic surgery), Prophylaxis of venous thrombosis (other than high-risk surgery), Treatment of Deep Vein Thrombosis/Pulmonary Embolism, Prevention of systemic embolism - Tissue heart valves, Acute Myocardial Infarction (to prevent systemic embolism), Valvular heart disease, Atrial Fibrillation, Bileaflet mechanical valve in aortic position.2. Mechanical prosthetic valves (high risk), 2.5 - 3.5 Presence of Lupus Anticoagulant or Antiphospholipid Antibodies, Prevention of systemic embolism - Acute Myocardial Infarction (to prevent recurrent infarct). COMMENTS: On arrivalTHROMBOPLASTIN TIME [id number] 14:17:00* Test Item Value Reference Range Interpretation Comments THROMBOPLASTIN TIME PARTIAL (test code = PTT) 32.9 Seconds 25.0-39. 5 N Therapeutic Range: 50.4 - 88.3 Seconds Effective 06/07/2018 COMMENTS: On arrivalLACTIC [id number] 14:17:00* Test Item Value Reference Range Interpretation Comments LACTIC ACID (test code = LACT) 5.0 mmol/L 0.4-1.9 BASIC METABOLIC [id number] 14:15:00* Test Item Value Reference Range Interpretation Comments SODIUM (test code = NA) 140 mEq/L 134-147 N POTASSIUM (test code = K) 3.6 mEq/L 3.4-5.0 N CHLORIDE (test code = CL) 108 mEq/L 100-108 N CARBON DIOXIDE (test code = CO2) 26 mEq/L 21-33 N ANION GAP (test code = GAP) 10 0-20 N GLUCOSE (test code = GLU) 102 mg/dL 70-110 N BLOOD UREA NITROGEN (test code = BUN) 15 mg/dL 7-18 N GLOMERULAR FILTRATION RATE (test code = GFR) 73.9 90-95 L Units of measure = ml/min/1.73 m2 CREATININE (test code = CREAT) 0.8 mg/dL 0.6-1.3 N CALCIUM (test code = CA) 8.5 mg/dL 8.0-10.5 N COMMENTS: On [id number] 14:15:00* Test Item Value Reference Range Interpretation Comments MAGNESIUM (test code = MAG) 2.40 mg/dL 1.8-2.4 COMMENTS: On arrivalCBC W/AUTO [id number] 14:00:00* Test Item Value Reference Range Interpretation Comments WHITE BLOOD CELL (test code = WBC) 27.66 x10 3/uL 4.5-11.0 H RED BLOOD CELL (test code = RBC) 2.67 x10 6/uL 3.54-5.02 L HEMOGLOBIN (test code = HGB) 7.5 g/dL 11.0-15.0 L HEMATOCRIT (test code = HCT) 23.4 % 33.0-45.0 L MEAN CELL VOLUME (test code = MCV) 87.6 fL 81.0-99.0 N MEAN CELL HGB (test code = MCH) 28.1 pg 27.0-33.0 N MEAN CELL HGB CONCETRATION (test code = MCHC) 32.1 g/dL 33.0-37. 0 L RED CELL DISTRIBUTION WIDTH CV (test code = RDW) 15.0 % 11.5- 14.5 H RED CELL DISTRIBUTION WIDTH SD (test code = RDW-SD) 47.8 fL 37 .0-54.0 N PLATELET COUNT (test code = PLT) 182 x10 3/uL 150-400 N MEAN PLATELET VOLUME (test code = MPV) 10.9 fL 7.0-9.0 H NEUTROPHIL % (test code = NT%) 76.6 % 56.0-77.0 N IMMATURE GRANULOCYTE % (test code = IG%) 1.2 % 0.0-2.0 N LYMPHOCYTE % (test code = LY%) 17.6 % 14.0-32.0 N MONOCYTE % (test code = MO%) 3.3 % 4.8-9.0 L EOSINOPHIL % (test code = EO%) 1.0 % 0.3-3.7 N BASOPHIL % (test code = BA%) 0.3 % 0.0-2.0 N NUCLEATED RBC % (test code = NRBC%) 0.0 % 0-0 N NEUTROPHIL # (test code = NT#) 21.16 x10 3/uL 2.0-7.6 H IMMATURE GRANULOCYTE # (test code = IG#) 0.34 x10 3/uL 0.00-0.03 H LYMPHOCYTE # (test code = LY#) 4.88 x10 3/uL 1.0-3.8 H MONOCYTE # (test code = MO#) 0.92 x10 3/uL 0.1-0.8 H EOSINOPHIL # (test code = EO#) 0.27 x10 3/uL 0.0-0.2 H BASOPHIL # (test code = BA#) 0.09 x10 3/uL 0.0-0.2 N NUCLEATED RBC # (test code = NRBC#) 0.00 x10 3/uL 0.0-0.1 N MANUAL DIFF REQUIRED (test code = MDIFF) NO COMMENTS: On arrivalARTERIAL BLOOD [id number] 13:59:00* Test Item Value Reference Range Interpretation Comments ARTERIAL BLOOD GAS PH (test code = PHA) 7.310 7.35-7.45 L ARTERIAL BLOOD GAS PCO2 (test code = PCO2A) 44.6 mmHg 35-45 N ARTERIAL BLOOD GAS PO2 (test code = PO2A) 140 mmHg 80-100 H BICARBONATE TOTAL HCO3 (test code = HCO3) 22.6 mmol/L 22.0-26.0 N BASE EXCESS (test code = EDIE) -4.0 mmol/L -4-4 N ABG O2 SATURATION (test code = SATA) 99 % 90-100 N FIO2 (test code = FIO2A) 40 % ABG DELIVERY (test code = HIRO) Vent ABG VENT MODE (test code = MODEA) AC v con ABG VENT RESP RATE (test code = RRA) 10 /MIN ABG TIDAL VOLUME (test code = TVA) 450 ml ABG PEEP (test code = PEEPA) 5 cmH2O Performed by certified cable machine operator at [facility] ABG TEMPERATURE (test code = TEMPA) 97.7 F ABG SITE (test code = SITEA) Art line PREDICTED AA GRADIENT (test code = AP) 60 PREDICTED PO2 (test code = OP) 171 a/A RATIO (test code = RATIO) 0.60 TCO2 ARTERIAL (test code = TCO2A) 24 A-A GRADIENT (test code = AAGRADE) 92 [id number] 13:15:00* Test Item Value Reference Range Interpretation Comments GLUBED (test code = GLUBED) 107 MG/DL 70-110 N Performed by certified cable machine operator at [facility] [id number] 13:15:00* Test Item Value Reference Range Interpretation Comments GLUBED (test code = GLUBED) 128 MG/DL 70-110 H Performed by certified cable machine operator at [facility] [id number] 13:15:00* Test Item Value Reference Range Interpretation Comments GLUBED (test code = GLUBED) 137 MG/DL 70-110 H Performed by certified cable machine operator at [facility] [id number] 13:15:00* Test Item Value Reference Range Interpretation Comments GLUBED (test code = GLUBED) 142 MG/DL 70-110 H Performed by certified cable machine operator at [facility] [id number] 13:15:00* Test Item Value Reference Range Interpretation Comments GLUBED (test code = GLUBED) 120 MG/DL 70-110 H Performed by certified cable machine operator at [facility] [id number] 13:15:00* Test Item Value Reference Range Interpretation Comments GLUBED (test code = GLUBED) 85 MG/DL 70-110 N Performed by certified cable machine operator at [facility] [id number] 13:15:00* Test Item Value Reference Range Interpretation Comments GLUBED (test code = GLUBED) 115 MG/DL 70-110 H Performed by certified cable machine operator at [facility] PROTHROMBIN [id number] 12:38:00* Test Item Value Reference Range Interpretation Comments PROTHROMBIN TIME PATIENT (test code = PTP) 20.3 SECONDS 9.3-12.9 H INTERNATIONAL NORMAL RATIO (test code = INR) 1.8 0.8-1.2 H TARGET INR BY INDICATION Indication INR1. Prophylaxis of venous thrombosis 2.0 - 3.0 (orthopedic surgery), Prophylaxis of venous thrombosis (other than high-risk surgery), Treatment of Deep Vein Thrombosis/Pulmonary Embolism, Prevention of systemic embolism - Tissue heart valves, Acute Myocardial Infarction (to prevent systemic embolism), Valvular heart disease, Atrial Fibrillation, Bileaflet mechanical valve in aortic position.2. Mechanical prosthetic valves (high risk), 2.5 - 3.5 Presence of Lupus Anticoagulant or Antiphospholipid Antibodies, Prevention of systemic embolism - Acute Myocardial Infarction (to prevent recurrent infarct). THROMBOPLASTIN TIME [id number] 12:38:00* Test Item Value Reference Range Interpretation Comments THROMBOPLASTIN TIME PARTIAL (test code = PTT) 36.8 Seconds 25.0-39. 5 Therapeutic Range: 50.4 - 88.3 Seconds Effective 06/07/2018 HGB [id number] 12:30:00* Test Item Value Reference Range Interpretation Comments HEMOGLOBIN (test code = HGB) 5.9 g/dL 11.0-15.0 LL HEMATOCRIT (test code = HCT) 18.2 % 33.0-45.0 L PLATELET [id number] 12:30:00* Test Item Value Reference Range Interpretation Comments PLATELET COUNT (test code = PLT) 159 x10 3/uL 150-400 N [id number] 12:20:00* Test Item Value Reference Range Interpretation Comments ACT-ISTAT (test code = ACTI) 114 SEC 74-137 N Performed by certified cable machine operator at [facility] POC ARTERIAL BLOOD [id number] 12:12:00* Test Item Value Reference Range Interpretation Comments POC ARTERIAL BLOOD GAS PH (test code = POCPHA) 7.421 7.35-7. 45 N POC ARTERIAL BLOOD GAS PCO2 (test code = YUBMNA9W) 36.4 mmHg 35. 0-45 N POC TCO2 ARTERIAL (test code = POCTCO2) 24.8 POC ARTERIAL BLOOD GAS PO2 (test code = KSDDR5O) 564.4 mmHg 80-10 0.0 HH POC HCO3 ARTERIAL (test code = LUMPAU7A) 23.7 MMOL/L 22.0-26.0 N POC BASE EXCESS (test code = POCBEA) -0.7 MMOL/L -4.0-4.0 N POC O2 SATURATION (test code = POCO2S) 100.0 % 90-100 N [id number] 12:12:00* Test Item Value Reference Range Interpretation Comments SODIUM (test code = NA/ABG) MEQ/L 134-147 [id number] 12:12:00* Test Item Value Reference Range Interpretation Comments POTASSIUM (test code = K/ABG) MEQ/L 3.4-5.0 [id number] 12:12:00* Test Item Value Reference Range Interpretation Comments CHLORIDE (test code = CL/ABG) MEQ/L 100-108 CREATININE [id number] 12:12:00* Test Item Value Reference Range Interpretation Comments CREATININE ABG (test code = CREAABG) mg/dL 0.6-1.0 [id number] 12:12:00* Test Item Value Reference Range Interpretation Comments HEMOGLOBIN (test code = HGB/ABG) G/DL 11.0-15.0 [id number] 12:12:00* Test Item Value Reference Range Interpretation Comments HEMATOCRIT (test code = HCT/ABG) % 33.0-45.0 POC IONIZED [id number] 12:12:00* Test Item Value Reference Range Interpretation Comments POC IONIZED CALCIUM (test code = POCCA) MMOL/L 1.12-1.32 POC LACTIC [id number] 12:12:00* Test Item Value Reference Range Interpretation Comments POC LACTIC ACID (test code = POCLAC) mmol/l 0.9-1.7 POC [id number] 12:12:00* Test Item Value Reference Range Interpretation Comments POC GLUCOSE (test code = POCGLU) MG/DL 70-110 POC ARTERIAL BLOOD [id number] 12:12:00* Test Item Value Reference Range Interpretation Comments POC ARTERIAL BLOOD GAS PH (test code = POCPHA) 7.421 7.35-7. 45 N POC ARTERIAL BLOOD GAS PCO2 (test code = QPRGOK1Q) 36.4 mmHg 35. 0-45 N POC TCO2 ARTERIAL (test code = POCTCO2) 24.8 POC ARTERIAL BLOOD GAS PO2 (test code = EIBAY6I) 564.4 mmHg 80-10 0.0 HH POC HCO3 ARTERIAL (test code = DZBSGE5S) 23.7 MMOL/L 22.0-26.0 N POC BASE EXCESS (test code = POCBEA) -0.7 MMOL/L -4.0-4.0 N POC O2 SATURATION (test code = POCO2S) 100.0 % 90-100 N [id number] 12:12:00* Test Item Value Reference Range Interpretation Comments SODIUM (test code = NA/ABG) 139 MEQ/L 134-147 N [id number] 12:12:00* Test Item Value Reference Range Interpretation Comments POTASSIUM (test code = K/ABG) MEQ/L 3.4-5.0 [id number] 12:12:00* Test Item Value Reference Range Interpretation Comments CHLORIDE (test code = CL/ABG) MEQ/L 100-108 CREATININE [id number] 12:12:00* Test Item Value Reference Range Interpretation Comments CREATININE ABG (test code = CREAABG) mg/dL 0.6-1.0 [id number] 12:12:00* Test Item Value Reference Range Interpretation Comments HEMOGLOBIN (test code = HGB/ABG) G/DL 11.0-15.0 [id number] 12:12:00* Test Item Value Reference Range Interpretation Comments HEMATOCRIT (test code = HCT/ABG) % 33.0-45.0 POC IONIZED [id number] 12:12:00* Test Item Value Reference Range Interpretation Comments POC IONIZED CALCIUM (test code = POCCA) MMOL/L 1.12-1.32 POC LACTIC [id number] 12:12:00* Test Item Value Reference Range Interpretation Comments POC LACTIC ACID (test code = POCLAC) mmol/l 0.9-1.7 POC [id number] 12:12:00* Test Item Value Reference Range Interpretation Comments POC GLUCOSE (test code = POCGLU) MG/DL 70-110 POC ARTERIAL BLOOD [id number] 12:12:00* Test Item Value Reference Range Interpretation Comments POC ARTERIAL BLOOD GAS PH (test code = POCPHA) 7.421 7.35-7. 45 N POC ARTERIAL BLOOD GAS PCO2 (test code = HKVKXU9I) 36.4 mmHg 35. 0-45 N POC TCO2 ARTERIAL (test code = POCTCO2) 24.8 POC ARTERIAL BLOOD GAS PO2 (test code = YWNHR6E) 564.4 mmHg 80-10 0.0 HH POC HCO3 ARTERIAL (test code = QPKEXF3X) 23.7 MMOL/L 22.0-26.0 N POC BASE EXCESS (test code = POCBEA) -0.7 MMOL/L -4.0-4.0 N POC O2 SATURATION (test code = POCO2S) 100.0 % 90-100 N [id number] 12:12:00* Test Item Value Reference Range Interpretation Comments SODIUM (test code = NA/ABG) 139 MEQ/L 134-147 N [id number] 12:12:00* Test Item Value Reference Range Interpretation Comments POTASSIUM (test code = K/ABG) 3.4 MEQ/L 3.4-5.0 N [id number] 12:12:00* Test Item Value Reference Range Interpretation Comments CHLORIDE (test code = CL/ABG) MEQ/L 100-108 CREATININE [id number] 12:12:00* Test Item Value Reference Range Interpretation Comments CREATININE ABG (test code = CREAABG) mg/dL 0.6-1.0 [id number] 12:12:00* Test Item Value Reference Range Interpretation Comments HEMOGLOBIN (test code = HGB/ABG) G/DL 11.0-15.0 [id number] 12:12:00* Test Item Value Reference Range Interpretation Comments HEMATOCRIT (test code = HCT/ABG) % 33.0-45.0 POC IONIZED [id number] 12:12:00* Test Item Value Reference Range Interpretation Comments POC IONIZED CALCIUM (test code = POCCA) MMOL/L 1.12-1.32 POC LACTIC [id number] 12:12:00* Test Item Value Reference Range Interpretation Comments POC LACTIC ACID (test code = POCLAC) mmol/l 0.9-1.7 POC [id number] 12:12:00* Test Item Value Reference Range Interpretation Comments POC GLUCOSE (test code = POCGLU) MG/DL 70-110 POC ARTERIAL BLOOD [id number] 12:12:00* Test Item Value Reference Range Interpretation Comments POC ARTERIAL BLOOD GAS PH (test code = POCPHA) 7.421 7.35-7. 45 N POC ARTERIAL BLOOD GAS PCO2 (test code = OAMTGP3N) 36.4 mmHg 35. 0-45 N POC TCO2 ARTERIAL (test code = POCTCO2) 24.8 POC ARTERIAL BLOOD GAS PO2 (test code = TNHDR0U) 564.4 mmHg 80-10 0.0 HH POC HCO3 ARTERIAL (test code = TPRHWC6R) 23.7 MMOL/L 22.0-26.0 N POC BASE EXCESS (test code = POCBEA) -0.7 MMOL/L -4.0-4.0 N POC O2 SATURATION (test code = POCO2S) 100.0 % 90-100 N [id number] 12:12:00* Test Item Value Reference Range Interpretation Comments SODIUM (test code = NA/ABG) 139 MEQ/L 134-147 N [id number] 12:12:00* Test Item Value Reference Range Interpretation Comments POTASSIUM (test code = K/ABG) 3.4 MEQ/L 3.4-5.0 N [id number] 12:12:00* Test Item Value Reference Range Interpretation Comments CHLORIDE (test code = CL/ABG) MEQ/L 100-108 CREATININE [id number] 12:12:00* Test Item Value Reference Range Interpretation Comments CREATININE ABG (test code = CREAABG) mg/dL 0.6-1.0 [id number] 12:12:00* Test Item Value Reference Range Interpretation Comments HEMOGLOBIN (test code = HGB/ABG) G/DL 11.0-15.0 [id number] 12:12:00* Test Item Value Reference Range Interpretation Comments HEMATOCRIT (test code = HCT/ABG) % 33.0-45.0 POC IONIZED [id number] 12:12:00* Test Item Value Reference Range Interpretation Comments POC IONIZED CALCIUM (test code = POCCA) 1.34 MMOL/L 1.12-1.32 H POC LACTIC [id number] 12:12:00* Test Item Value Reference Range Interpretation Comments POC LACTIC ACID (test code = POCLAC) mmol/l 0.9-1.7 POC [id number] 12:12:00* Test Item Value Reference Range Interpretation Comments POC GLUCOSE (test code = POCGLU) MG/DL 70-110 POC ARTERIAL BLOOD [id number] 12:12:00* Test Item Value Reference Range Interpretation Comments POC ARTERIAL BLOOD GAS PH (test code = POCPHA) 7.421 7.35-7. 45 N POC ARTERIAL BLOOD GAS PCO2 (test code = XDVAQP5Z) 36.4 mmHg 35. 0-45 N POC TCO2 ARTERIAL (test code = POCTCO2) 24.8 POC ARTERIAL BLOOD GAS PO2 (test code = GUWUZ3Z) 564.4 mmHg 80-10 0.0 HH POC HCO3 ARTERIAL (test code = EQCQGQ6B) 23.7 MMOL/L 22.0-26.0 N POC BASE EXCESS (test code = POCBEA) -0.7 MMOL/L -4.0-4.0 N POC O2 SATURATION (test code = POCO2S) 100.0 % 90-100 N [id number] 12:12:00* Test Item Value Reference Range Interpretation Comments SODIUM (test code = NA/ABG) 139 MEQ/L 134-147 N [id number] 12:12:00* Test Item Value Reference Range Interpretation Comments POTASSIUM (test code = K/ABG) 3.4 MEQ/L 3.4-5.0 N [id number] 12:12:00* Test Item Value Reference Range Interpretation Comments CHLORIDE (test code = CL/ABG) MEQ/L 100-108 CREATININE [id number] 12:12:00* Test Item Value Reference Range Interpretation Comments CREATININE ABG (test code = CREAABG) mg/dL 0.6-1.0 [id number] 12:12:00* Test Item Value Reference Range Interpretation Comments HEMOGLOBIN (test code = HGB/ABG) G/DL 11.0-15.0 [id number] 12:12:00* Test Item Value Reference Range Interpretation Comments HEMATOCRIT (test code = HCT/ABG) % 33.0-45.0 POC IONIZED [id number] 12:12:00* Test Item Value Reference Range Interpretation Comments POC IONIZED CALCIUM (test code = POCCA) 1.34 MMOL/L 1.12-1.32 H POC LACTIC [id number] 12:12:00* Test Item Value Reference Range Interpretation Comments POC LACTIC ACID (test code = POCLAC) mmol/l 0.9-1.7 POC [id number] 12:12:00* Test Item Value Reference Range Interpretation Comments POC GLUCOSE (test code = POCGLU) 128 MG/DL 70-110 H POC ARTERIAL BLOOD [id number] 12:12:00* Test Item Value Reference Range Interpretation Comments POC ARTERIAL BLOOD GAS PH (test code = POCPHA) 7.421 7.35-7. 45 N POC ARTERIAL BLOOD GAS PCO2 (test code = ZFLJRW0D) 36.4 mmHg 35. 0-45 N POC TCO2 ARTERIAL (test code = POCTCO2) 24.8 POC ARTERIAL BLOOD GAS PO2 (test code = LBBMM0I) 564.4 mmHg 80-10 0.0 HH POC HCO3 ARTERIAL (test code = HZIVVY4Q) 23.7 MMOL/L 22.0-26.0 N POC BASE EXCESS (test code = POCBEA) -0.7 MMOL/L -4.0-4.0 N POC O2 SATURATION (test code = POCO2S) 100.0 % 90-100 N [id number] 12:12:00* Test Item Value Reference Range Interpretation Comments SODIUM (test code = NA/ABG) 139 MEQ/L 134-147 N [id number] 12:12:00* Test Item Value Reference Range Interpretation Comments POTASSIUM (test code = K/ABG) 3.4 MEQ/L 3.4-5.0 N [id number] 12:12:00* Test Item Value Reference Range Interpretation Comments CHLORIDE (test code = CL/ABG) MEQ/L 100-108 CREATININE [id number] 12:12:00* Test Item Value Reference Range Interpretation Comments CREATININE ABG (test code = CREAABG) mg/dL 0.6-1.0 [id number] 12:12:00* Test Item Value Reference Range Interpretation Comments HEMOGLOBIN (test code = HGB/ABG) G/DL 11.0-15.0 [id number] 12:12:00* Test Item Value Reference Range Interpretation Comments HEMATOCRIT (test code = HCT/ABG) % 33.0-45.0 POC IONIZED [id number] 12:12:00* Test Item Value Reference Range Interpretation Comments POC IONIZED CALCIUM (test code = POCCA) 1.34 MMOL/L 1.12-1.32 H POC LACTIC [id number] 12:12:00* Test Item Value Reference Range Interpretation Comments POC LACTIC ACID (test code = POCLAC) 3.3 mmol/l 0.9-1.7 H POC [id number] 12:12:00* Test Item Value Reference Range Interpretation Comments POC GLUCOSE (test code = POCGLU) 128 MG/DL 70-110 H POC ARTERIAL BLOOD [id number] 12:12:00* Test Item Value Reference Range Interpretation Comments POC ARTERIAL BLOOD GAS PH (test code = POCPHA) 7.421 7.35-7. 45 N POC ARTERIAL BLOOD GAS PCO2 (test code = KXLZLX6R) 36.4 mmHg 35. 0-45 N POC TCO2 ARTERIAL (test code = POCTCO2) 24.8 POC ARTERIAL BLOOD GAS PO2 (test code = IIQHS6J) 564.4 mmHg 80-10 0.0 HH POC HCO3 ARTERIAL (test code = KCWDOO8N) 23.7 MMOL/L 22.0-26.0 N POC BASE EXCESS (test code = POCBEA) -0.7 MMOL/L -4.0-4.0 N POC O2 SATURATION (test code = POCO2S) 100.0 % 90-100 N [id number] 12:12:00* Test Item Value Reference Range Interpretation Comments SODIUM (test code = NA/ABG) 139 MEQ/L 134-147 N [id number] 12:12:00* Test Item Value Reference Range Interpretation Comments POTASSIUM (test code = K/ABG) 3.4 MEQ/L 3.4-5.0 N [id number] 12:12:00* Test Item Value Reference Range Interpretation Comments CHLORIDE (test code = CL/ABG) MEQ/L 100-108 CREATININE [id number] 12:12:00* Test Item Value Reference Range Interpretation Comments CREATININE ABG (test code = CREAABG) mg/dL 0.6-1.0 [id number] 12:12:00* Test Item Value Reference Range Interpretation Comments HEMOGLOBIN (test code = HGB/ABG) G/DL 11.0-15.0 [id number] 12:12:00* Test Item Value Reference Range Interpretation Comments HEMATOCRIT (test code = HCT/ABG) 21 % 33.0-45.0 L POC IONIZED [id number] 12:12:00* Test Item Value Reference Range Interpretation Comments POC IONIZED CALCIUM (test code = POCCA) 1.34 MMOL/L 1.12-1.32 H POC LACTIC [id number] 12:12:00* Test Item Value Reference Range Interpretation Comments POC LACTIC ACID (test code = POCLAC) 3.3 mmol/l 0.9-1.7 H POC [id number] 12:12:00* Test Item Value Reference Range Interpretation Comments POC GLUCOSE (test code = POCGLU) 128 MG/DL 70-110 H POC ARTERIAL BLOOD [id number] 12:12:00* Test Item Value Reference Range Interpretation Comments POC ARTERIAL BLOOD GAS PH (test code = POCPHA) 7.421 7.35-7. 45 N POC ARTERIAL BLOOD GAS PCO2 (test code = BMUPZX2R) 36.4 mmHg 35. 0-45 N POC TCO2 ARTERIAL (test code = POCTCO2) 24.8 POC ARTERIAL BLOOD GAS PO2 (test code = VLXCY2P) 564.4 mmHg 80-10 0.0 HH POC HCO3 ARTERIAL (test code = PIKLZD8E) 23.7 MMOL/L 22.0-26.0 N POC BASE EXCESS (test code = POCBEA) -0.7 MMOL/L -4.0-4.0 N POC O2 SATURATION (test code = POCO2S) 100.0 % 90-100 N [id number] 12:12:00* Test Item Value Reference Range Interpretation Comments SODIUM (test code = NA/ABG) 139 MEQ/L 134-147 N [id number] 12:12:00* Test Item Value Reference Range Interpretation Comments POTASSIUM (test code = K/ABG) 3.4 MEQ/L 3.4-5.0 N [id number] 12:12:00* Test Item Value Reference Range Interpretation Comments CHLORIDE (test code = CL/ABG) MEQ/L 100-108 CREATININE [id number] 12:12:00* Test Item Value Reference Range Interpretation Comments CREATININE ABG (test code = CREAABG) mg/dL 0.6-1.0 [id number] 12:12:00* Test Item Value Reference Range Interpretation Comments HEMOGLOBIN (test code = HGB/ABG) 7.0 G/DL 11.0-15.0 L [id number] 12:12:00* Test Item Value Reference Range Interpretation Comments HEMATOCRIT (test code = HCT/ABG) 21 % 33.0-45.0 L POC IONIZED [id number] 12:12:00* Test Item Value Reference Range Interpretation Comments POC IONIZED CALCIUM (test code = POCCA) 1.34 MMOL/L 1.12-1.32 H POC LACTIC [id number] 12:12:00* Test Item Value Reference Range Interpretation Comments POC LACTIC ACID (test code = POCLAC) 3.3 mmol/l 0.9-1.7 H POC [id number] 12:12:00* Test Item Value Reference Range Interpretation Comments POC GLUCOSE (test code = POCGLU) 128 MG/DL 70-110 H POC ARTERIAL BLOOD [id number] 12:12:00* Test Item Value Reference Range Interpretation Comments POC ARTERIAL BLOOD GAS PH (test code = POCPHA) 7.421 7.35-7. 45 N POC ARTERIAL BLOOD GAS PCO2 (test code = RNUXZU8H) 36.4 mmHg 35. 0-45 N POC TCO2 ARTERIAL (test code = POCTCO2) 24.8 POC ARTERIAL BLOOD GAS PO2 (test code = XKPJR3R) 564.4 mmHg 80-10 0.0 HH POC HCO3 ARTERIAL (test code = STOCWZ1H) 23.7 MMOL/L 22.0-26.0 N POC BASE EXCESS (test code = POCBEA) -0.7 MMOL/L -4.0-4.0 N POC O2 SATURATION (test code = POCO2S) 100.0 % 90-100 N [id number] 12:12:00* Test Item Value Reference Range Interpretation Comments SODIUM (test code = NA/ABG) 139 MEQ/L 134-147 N [id number] 12:12:00* Test Item Value Reference Range Interpretation Comments POTASSIUM (test code = K/ABG) 3.4 MEQ/L 3.4-5.0 N [id number] 12:12:00* Test Item Value Reference Range Interpretation Comments CHLORIDE (test code = CL/ABG) 103 MEQ/L 100-108 N CREATININE [id number] 12:12:00* Test Item Value Reference Range Interpretation Comments CREATININE ABG (test code = CREAABG) mg/dL 0.6-1.0 [id number] 12:12:00* Test Item Value Reference Range Interpretation Comments HEMOGLOBIN (test code = HGB/ABG) 7.0 G/DL 11.0-15.0 L [id number] 12:12:00* Test Item Value Reference Range Interpretation Comments HEMATOCRIT (test code = HCT/ABG) 21 % 33.0-45.0 L POC IONIZED [id number] 12:12:00* Test Item Value Reference Range Interpretation Comments POC IONIZED CALCIUM (test code = POCCA) 1.34 MMOL/L 1.12-1.32 H POC LACTIC [id number] 12:12:00* Test Item Value Reference Range Interpretation Comments POC LACTIC ACID (test code = POCLAC) 3.3 mmol/l 0.9-1.7 H POC [id number] 12:12:00* Test Item Value Reference Range Interpretation Comments POC GLUCOSE (test code = POCGLU) 128 MG/DL 70-110 H POC ARTERIAL BLOOD [id number] 12:12:00* Test Item Value Reference Range Interpretation Comments POC ARTERIAL BLOOD GAS PH (test code = POCPHA) 7.421 7.35-7. 45 N POC ARTERIAL BLOOD GAS PCO2 (test code = PDLSSK3A) 36.4 mmHg 35. 0-45 N POC TCO2 ARTERIAL (test code = POCTCO2) 24.8 POC ARTERIAL BLOOD GAS PO2 (test code = JIRDB6X) 564.4 mmHg 80-10 0.0 HH POC HCO3 ARTERIAL (test code = HFQMVD9F) 23.7 MMOL/L 22.0-26.0 N POC BASE EXCESS (test code = POCBEA) -0.7 MMOL/L -4.0-4.0 N POC O2 SATURATION (test code = POCO2S) 100.0 % 90-100 N [id number] 12:12:00* Test Item Value Reference Range Interpretation Comments SODIUM (test code = NA/ABG) 139 MEQ/L 134-147 N [id number] 12:12:00* Test Item Value Reference Range Interpretation Comments POTASSIUM (test code = K/ABG) 3.4 MEQ/L 3.4-5.0 N [id number] 12:12:00* Test Item Value Reference Range Interpretation Comments CHLORIDE (test code = CL/ABG) 103 MEQ/L 100-108 N CREATININE [id number] 12:12:00* Test Item Value Reference Range Interpretation Comments CREATININE ABG (test code = CREAABG) 0.4 mg/dL 0.6-1.0 L [id number] 12:12:00* Test Item Value Reference Range Interpretation Comments HEMOGLOBIN (test code = HGB/ABG) 7.0 G/DL 11.0-15.0 L [id number] 12:12:00* Test Item Value Reference Range Interpretation Comments HEMATOCRIT (test code = HCT/ABG) 21 % 33.0-45.0 L POC IONIZED [id number] 12:12:00* Test Item Value Reference Range Interpretation Comments POC IONIZED CALCIUM (test code = POCCA) 1.34 MMOL/L 1.12-1.32 H POC LACTIC [id number] 12:12:00* Test Item Value Reference Range Interpretation Comments POC LACTIC ACID (test code = POCLAC) 3.3 mmol/l 0.9-1.7 H POC [id number] 12:12:00* Test Item Value Reference Range Interpretation Comments POC GLUCOSE (test code = POCGLU) 128 MG/DL 70-110 H [id number] 11:26:00* Test Item Value Reference Range Interpretation Comments ACT-ISTAT (test code = ACTI) 494 SEC 74-137 H Performed by certified cable machine operator at [facility] POC ARTERIAL BLOOD [id number] 11:14:00* Test Item Value Reference Range Interpretation Comments POC ARTERIAL BLOOD GAS PH (test code = POCPHA) 7.453 7.35-7. 45 H POC ARTERIAL BLOOD GAS PCO2 (test code = AXVWSI8Q) 37.3 mmHg 35. 0-45 N POC TCO2 ARTERIAL (test code = POCTCO2) 27.3 POC ARTERIAL BLOOD GAS PO2 (test code = HLRRE2O) 424.5 mmHg 80-10 0.0 HH POC HCO3 ARTERIAL (test code = XIVGPG7F) 26.1 MMOL/L 22.0-26.0 H POC BASE EXCESS (test code = POCBEA) 2.0 MMOL/L -4.0-4.0 N POC O2 SATURATION (test code = POCO2S) 100.0 % 90-100 N [id number] 11:14:00* Test Item Value Reference Range Interpretation Comments SODIUM (test code = NA/ABG) MEQ/L 134-147 [id number] 11:14:00* Test Item Value Reference Range Interpretation Comments POTASSIUM (test code = K/ABG) MEQ/L 3.4-5.0 [id number] 11:14:00* Test Item Value Reference Range Interpretation Comments CHLORIDE (test code = CL/ABG) MEQ/L 100-108 CREATININE [id number] 11:14:00* Test Item Value Reference Range Interpretation Comments CREATININE ABG (test code = CREAABG) mg/dL 0.6-1.0 [id number] 11:14:00* Test Item Value Reference Range Interpretation Comments HEMOGLOBIN (test code = HGB/ABG) G/DL 11.0-15.0 [id number] 11:14:00* Test Item Value Reference Range Interpretation Comments HEMATOCRIT (test code = HCT/ABG) % 33.0-45.0 POC IONIZED [id number] 11:14:00* Test Item Value Reference Range Interpretation Comments POC IONIZED CALCIUM (test code = POCCA) MMOL/L 1.12-1.32 POC LACTIC [id number] 11:14:00* Test Item Value Reference Range Interpretation Comments POC LACTIC ACID (test code = POCLAC) mmol/l 0.9-1.7 POC [id number] 11:14:00* Test Item Value Reference Range Interpretation Comments POC GLUCOSE (test code = POCGLU) MG/DL 70-110 POC ARTERIAL BLOOD [id number] 11:14:00* Test Item Value Reference Range Interpretation Comments POC ARTERIAL BLOOD GAS PH (test code = POCPHA) 7.453 7.35-7. 45 H POC ARTERIAL BLOOD GAS PCO2 (test code = KUPSIL5V) 37.3 mmHg 35. 0-45 N POC TCO2 ARTERIAL (test code = POCTCO2) 27.3 POC ARTERIAL BLOOD GAS PO2 (test code = MQZAR7K) 424.5 mmHg 80-10 0.0 HH POC HCO3 ARTERIAL (test code = HTSJIZ8S) 26.1 MMOL/L 22.0-26.0 H POC BASE EXCESS (test code = POCBEA) 2.0 MMOL/L -4.0-4.0 N POC O2 SATURATION (test code = POCO2S) 100.0 % 90-100 N [id number] 11:14:00* Test Item Value Reference Range Interpretation Comments SODIUM (test code = NA/ABG) 139 MEQ/L 134-147 N [id number] 11:14:00* Test Item Value Reference Range Interpretation Comments POTASSIUM (test code = K/ABG) MEQ/L 3.4-5.0 [id number] 11:14:00* Test Item Value Reference Range Interpretation Comments CHLORIDE (test code = CL/ABG) MEQ/L 100-108 CREATININE [id number] 11:14:00* Test Item Value Reference Range Interpretation Comments CREATININE ABG (test code = CREAABG) mg/dL 0.6-1.0 [id number] 11:14:00* Test Item Value Reference Range Interpretation Comments HEMOGLOBIN (test code = HGB/ABG) G/DL 11.0-15.0 [id number] 11:14:00* Test Item Value Reference Range Interpretation Comments HEMATOCRIT (test code = HCT/ABG) % 33.0-45.0 POC IONIZED [id number] 11:14:00* Test Item Value Reference Range Interpretation Comments POC IONIZED CALCIUM (test code = POCCA) MMOL/L 1.12-1.32 POC LACTIC [id number] 11:14:00* Test Item Value Reference Range Interpretation Comments POC LACTIC ACID (test code = POCLAC) mmol/l 0.9-1.7 POC [id number] 11:14:00* Test Item Value Reference Range Interpretation Comments POC GLUCOSE (test code = POCGLU) MG/DL 70-110 POC ARTERIAL BLOOD [id number] 11:14:00* Test Item Value Reference Range Interpretation Comments POC ARTERIAL BLOOD GAS PH (test code = POCPHA) 7.453 7.35-7. 45 H POC ARTERIAL BLOOD GAS PCO2 (test code = QGARQU4M) 37.3 mmHg 35. 0-45 N POC TCO2 ARTERIAL (test code = POCTCO2) 27.3 POC ARTERIAL BLOOD GAS PO2 (test code = RIOTO5X) 424.5 mmHg 80-10 0.0 HH POC HCO3 ARTERIAL (test code = BXMENQ7A) 26.1 MMOL/L 22.0-26.0 H POC BASE EXCESS (test code = POCBEA) 2.0 MMOL/L -4.0-4.0 N POC O2 SATURATION (test code = POCO2S) 100.0 % 90-100 N [id number] 11:14:00* Test Item Value Reference Range Interpretation Comments SODIUM (test code = NA/ABG) 139 MEQ/L 134-147 N [id number] 11:14:00* Test Item Value Reference Range Interpretation Comments POTASSIUM (test code = K/ABG) 5.6 MEQ/L 3.4-5.0 H [id number] 11:14:00* Test Item Value Reference Range Interpretation Comments CHLORIDE (test code = CL/ABG) MEQ/L 100-108 CREATININE [id number] 11:14:00* Test Item Value Reference Range Interpretation Comments CREATININE ABG (test code = CREAABG) mg/dL 0.6-1.0 [id number] 11:14:00* Test Item Value Reference Range Interpretation Comments HEMOGLOBIN (test code = HGB/ABG) G/DL 11.0-15.0 [id number] 11:14:00* Test Item Value Reference Range Interpretation Comments HEMATOCRIT (test code = HCT/ABG) % 33.0-45.0 POC IONIZED [id number] 11:14:00* Test Item Value Reference Range Interpretation Comments POC IONIZED CALCIUM (test code = POCCA) MMOL/L 1.12-1.32 POC LACTIC [id number] 11:14:00* Test Item Value Reference Range Interpretation Comments POC LACTIC ACID (test code = POCLAC) mmol/l 0.9-1.7 POC [id number] 11:14:00* Test Item Value Reference Range Interpretation Comments POC GLUCOSE (test code = POCGLU) MG/DL 70-110 POC ARTERIAL BLOOD [id number] 11:14:00* Test Item Value Reference Range Interpretation Comments POC ARTERIAL BLOOD GAS PH (test code = POCPHA) 7.453 7.35-7. 45 H POC ARTERIAL BLOOD GAS PCO2 (test code = YHXDIS4M) 37.3 mmHg 35. 0-45 N POC TCO2 ARTERIAL (test code = POCTCO2) 27.3 POC ARTERIAL BLOOD GAS PO2 (test code = KJJUM3X) 424.5 mmHg 80-10 0.0 HH POC HCO3 ARTERIAL (test code = OAGLVI7X) 26.1 MMOL/L 22.0-26.0 H POC BASE EXCESS (test code = POCBEA) 2.0 MMOL/L -4.0-4.0 N POC O2 SATURATION (test code = POCO2S) 100.0 % 90-100 N [id number] 11:14:00* Test Item Value Reference Range Interpretation Comments SODIUM (test code = NA/ABG) 139 MEQ/L 134-147 N [id number] 11:14:00* Test Item Value Reference Range Interpretation Comments POTASSIUM (test code = K/ABG) 5.6 MEQ/L 3.4-5.0 H [id number] 11:14:00* Test Item Value Reference Range Interpretation Comments CHLORIDE (test code = CL/ABG) MEQ/L 100-108 CREATININE [id number] 11:14:00* Test Item Value Reference Range Interpretation Comments CREATININE ABG (test code = CREAABG) mg/dL 0.6-1.0 [id number] 11:14:00* Test Item Value Reference Range Interpretation Comments HEMOGLOBIN (test code = HGB/ABG) G/DL 11.0-15.0 [id number] 11:14:00* Test Item Value Reference Range Interpretation Comments HEMATOCRIT (test code = HCT/ABG) % 33.0-45.0 POC IONIZED [id number] 11:14:00* Test Item Value Reference Range Interpretation Comments POC IONIZED CALCIUM (test code = POCCA) 1.09 MMOL/L 1.12-1.32 L POC LACTIC [id number] 11:14:00* Test Item Value Reference Range Interpretation Comments POC LACTIC ACID (test code = POCLAC) mmol/l 0.9-1.7 POC [id number] 11:14:00* Test Item Value Reference Range Interpretation Comments POC GLUCOSE (test code = POCGLU) MG/DL 70-110 POC ARTERIAL BLOOD [id number] 11:14:00* Test Item Value Reference Range Interpretation Comments POC ARTERIAL BLOOD GAS PH (test code = POCPHA) 7.453 7.35-7. 45 H POC ARTERIAL BLOOD GAS PCO2 (test code = JAOYVJ8A) 37.3 mmHg 35. 0-45 N POC TCO2 ARTERIAL (test code = POCTCO2) 27.3 POC ARTERIAL BLOOD GAS PO2 (test code = TZNXM4A) 424.5 mmHg 80-10 0.0 HH POC HCO3 ARTERIAL (test code = XKZIZM5W) 26.1 MMOL/L 22.0-26.0 H POC BASE EXCESS (test code = POCBEA) 2.0 MMOL/L -4.0-4.0 N POC O2 SATURATION (test code = POCO2S) 100.0 % 90-100 N [id number] 11:14:00* Test Item Value Reference Range Interpretation Comments SODIUM (test code = NA/ABG) 139 MEQ/L 134-147 N [id number] 11:14:00* Test Item Value Reference Range Interpretation Comments POTASSIUM (test code = K/ABG) 5.6 MEQ/L 3.4-5.0 H [id number] 11:14:00* Test Item Value Reference Range Interpretation Comments CHLORIDE (test code = CL/ABG) MEQ/L 100-108 CREATININE [id number] 11:14:00* Test Item Value Reference Range Interpretation Comments CREATININE ABG (test code = CREAABG) mg/dL 0.6-1.0 [id number] 11:14:00* Test Item Value Reference Range Interpretation Comments HEMOGLOBIN (test code = HGB/ABG) G/DL 11.0-15.0 [id number] 11:14:00* Test Item Value Reference Range Interpretation Comments HEMATOCRIT (test code = HCT/ABG) % 33.0-45.0 POC IONIZED [id number] 11:14:00* Test Item Value Reference Range Interpretation Comments POC IONIZED CALCIUM (test code = POCCA) 1.09 MMOL/L 1.12-1.32 L POC LACTIC [id number] 11:14:00* Test Item Value Reference Range Interpretation Comments POC LACTIC ACID (test code = POCLAC) mmol/l 0.9-1.7 POC [id number] 11:14:00* Test Item Value Reference Range Interpretation Comments POC GLUCOSE (test code = POCGLU) 144 MG/DL 70-110 H POC ARTERIAL BLOOD [id number] 11:14:00* Test Item Value Reference Range Interpretation Comments POC ARTERIAL BLOOD GAS PH (test code = POCPHA) 7.453 7.35-7. 45 H POC ARTERIAL BLOOD GAS PCO2 (test code = RLLASS0K) 37.3 mmHg 35. 0-45 N POC TCO2 ARTERIAL (test code = POCTCO2) 27.3 POC ARTERIAL BLOOD GAS PO2 (test code = COMQC4T) 424.5 mmHg 80-10 0.0 HH POC HCO3 ARTERIAL (test code = KPBFQY3H) 26.1 MMOL/L 22.0-26.0 H POC BASE EXCESS (test code = POCBEA) 2.0 MMOL/L -4.0-4.0 N POC O2 SATURATION (test code = POCO2S) 100.0 % 90-100 N [id number] 11:14:00* Test Item Value Reference Range Interpretation Comments SODIUM (test code = NA/ABG) 139 MEQ/L 134-147 N [id number] 11:14:00* Test Item Value Reference Range Interpretation Comments POTASSIUM (test code = K/ABG) 5.6 MEQ/L 3.4-5.0 H [id number] 11:14:00* Test Item Value Reference Range Interpretation Comments CHLORIDE (test code = CL/ABG) MEQ/L 100-108 CREATININE [id number] 11:14:00* Test Item Value Reference Range Interpretation Comments CREATININE ABG (test code = CREAABG) mg/dL 0.6-1.0 [id number] 11:14:00* Test Item Value Reference Range Interpretation Comments HEMOGLOBIN (test code = HGB/ABG) G/DL 11.0-15.0 [id number] 11:14:00* Test Item Value Reference Range Interpretation Comments HEMATOCRIT (test code = HCT/ABG) % 33.0-45.0 POC IONIZED [id number] 11:14:00* Test Item Value Reference Range Interpretation Comments POC IONIZED CALCIUM (test code = POCCA) 1.09 MMOL/L 1.12-1.32 L POC LACTIC [id number] 11:14:00* Test Item Value Reference Range Interpretation Comments POC LACTIC ACID (test code = POCLAC) 2.0 mmol/l 0.9-1.7 H POC [id number] 11:14:00* Test Item Value Reference Range Interpretation Comments POC GLUCOSE (test code = POCGLU) 144 MG/DL 70-110 H POC ARTERIAL BLOOD [id number] 11:14:00* Test Item Value Reference Range Interpretation Comments POC ARTERIAL BLOOD GAS PH (test code = POCPHA) 7.453 7.35-7. 45 H POC ARTERIAL BLOOD GAS PCO2 (test code = KBRIOP6B) 37.3 mmHg 35. 0-45 N POC TCO2 ARTERIAL (test code = POCTCO2) 27.3 POC ARTERIAL BLOOD GAS PO2 (test code = KLMYO2N) 424.5 mmHg 80-10 0.0 HH POC HCO3 ARTERIAL (test code = ETDMSW7S) 26.1 MMOL/L 22.0-26.0 H POC BASE EXCESS (test code = POCBEA) 2.0 MMOL/L -4.0-4.0 N POC O2 SATURATION (test code = POCO2S) 100.0 % 90-100 N [id number] 11:14:00* Test Item Value Reference Range Interpretation Comments SODIUM (test code = NA/ABG) 139 MEQ/L 134-147 N [id number] 11:14:00* Test Item Value Reference Range Interpretation Comments POTASSIUM (test code = K/ABG) 5.6 MEQ/L 3.4-5.0 H [id number] 11:14:00* Test Item Value Reference Range Interpretation Comments CHLORIDE (test code = CL/ABG) MEQ/L 100-108 CREATININE [id number] 11:14:00* Test Item Value Reference Range Interpretation Comments CREATININE ABG (test code = CREAABG) mg/dL 0.6-1.0 [id number] 11:14:00* Test Item Value Reference Range Interpretation Comments HEMOGLOBIN (test code = HGB/ABG) G/DL 11.0-15.0 [id number] 11:14:00* Test Item Value Reference Range Interpretation Comments HEMATOCRIT (test code = HCT/ABG) 20 % 33.0-45.0 L POC IONIZED [id number] 11:14:00* Test Item Value Reference Range Interpretation Comments POC IONIZED CALCIUM (test code = POCCA) 1.09 MMOL/L 1.12-1.32 L POC LACTIC [id number] 11:14:00* Test Item Value Reference Range Interpretation Comments POC LACTIC ACID (test code = POCLAC) 2.0 mmol/l 0.9-1.7 H POC [id number] 11:14:00* Test Item Value Reference Range Interpretation Comments POC GLUCOSE (test code = POCGLU) 144 MG/DL 70-110 H POC ARTERIAL BLOOD [id number] 11:14:00* Test Item Value Reference Range Interpretation Comments POC ARTERIAL BLOOD GAS PH (test code = POCPHA) 7.453 7.35-7. 45 H POC ARTERIAL BLOOD GAS PCO2 (test code = WCOTVE2J) 37.3 mmHg 35. 0-45 N POC TCO2 ARTERIAL (test code = POCTCO2) 27.3 POC ARTERIAL BLOOD GAS PO2 (test code = EERQF9S) 424.5 mmHg 80-10 0.0 HH POC HCO3 ARTERIAL (test code = ZNYZFD3Z) 26.1 MMOL/L 22.0-26.0 H POC BASE EXCESS (test code = POCBEA) 2.0 MMOL/L -4.0-4.0 N POC O2 SATURATION (test code = POCO2S) 100.0 % 90-100 N [id number] 11:14:00* Test Item Value Reference Range Interpretation Comments SODIUM (test code = NA/ABG) 139 MEQ/L 134-147 N [id number] 11:14:00* Test Item Value Reference Range Interpretation Comments POTASSIUM (test code = K/ABG) 5.6 MEQ/L 3.4-5.0 H [id number] 11:14:00* Test Item Value Reference Range Interpretation Comments CHLORIDE (test code = CL/ABG) MEQ/L 100-108 CREATININE [id number] 11:14:00* Test Item Value Reference Range Interpretation Comments CREATININE ABG (test code = CREAABG) mg/dL 0.6-1.0 [id number] 11:14:00* Test Item Value Reference Range Interpretation Comments HEMOGLOBIN (test code = HGB/ABG) 6.7 G/DL 11.0-15.0 L [id number] 11:14:00* Test Item Value Reference Range Interpretation Comments HEMATOCRIT (test code = HCT/ABG) 20 % 33.0-45.0 L POC IONIZED [id number] 11:14:00* Test Item Value Reference Range Interpretation Comments POC IONIZED CALCIUM (test code = POCCA) 1.09 MMOL/L 1.12-1.32 L POC LACTIC [id number] 11:14:00* Test Item Value Reference Range Interpretation Comments POC LACTIC ACID (test code = POCLAC) 2.0 mmol/l 0.9-1.7 H POC [id number] 11:14:00* Test Item Value Reference Range Interpretation Comments POC GLUCOSE (test code = POCGLU) 144 MG/DL 70-110 H POC ARTERIAL BLOOD [id number] 11:14:00* Test Item Value Reference Range Interpretation Comments POC ARTERIAL BLOOD GAS PH (test code = POCPHA) 7.453 7.35-7. 45 H POC ARTERIAL BLOOD GAS PCO2 (test code = XYMABG8L) 37.3 mmHg 35. 0-45 N POC TCO2 ARTERIAL (test code = POCTCO2) 27.3 POC ARTERIAL BLOOD GAS PO2 (test code = SBCJR0C) 424.5 mmHg 80-10 0.0 HH POC HCO3 ARTERIAL (test code = PHZEJV5Y) 26.1 MMOL/L 22.0-26.0 H POC BASE EXCESS (test code = POCBEA) 2.0 MMOL/L -4.0-4.0 N POC O2 SATURATION (test code = POCO2S) 100.0 % 90-100 N [id number] 11:14:00* Test Item Value Reference Range Interpretation Comments SODIUM (test code = NA/ABG) 139 MEQ/L 134-147 N [id number] 11:14:00* Test Item Value Reference Range Interpretation Comments POTASSIUM (test code = K/ABG) 5.6 MEQ/L 3.4-5.0 H [id number] 11:14:00* Test Item Value Reference Range Interpretation Comments CHLORIDE (test code = CL/ABG) 100 MEQ/L 100-108 N CREATININE [id number] 11:14:00* Test Item Value Reference Range Interpretation Comments CREATININE ABG (test code = CREAABG) mg/dL 0.6-1.0 [id number] 11:14:00* Test Item Value Reference Range Interpretation Comments HEMOGLOBIN (test code = HGB/ABG) 6.7 G/DL 11.0-15.0 L [id number] 11:14:00* Test Item Value Reference Range Interpretation Comments HEMATOCRIT (test code = HCT/ABG) 20 % 33.0-45.0 L POC IONIZED [id number] 11:14:00* Test Item Value Reference Range Interpretation Comments POC IONIZED CALCIUM (test code = POCCA) 1.09 MMOL/L 1.12-1.32 L POC LACTIC [id number] 11:14:00* Test Item Value Reference Range Interpretation Comments POC LACTIC ACID (test code = POCLAC) 2.0 mmol/l 0.9-1.7 H POC [id number] 11:14:00* Test Item Value Reference Range Interpretation Comments POC GLUCOSE (test code = POCGLU) 144 MG/DL 70-110 H POC ARTERIAL BLOOD [id number] 11:14:00* Test Item Value Reference Range Interpretation Comments POC ARTERIAL BLOOD GAS PH (test code = POCPHA) 7.453 7.35-7. 45 H POC ARTERIAL BLOOD GAS PCO2 (test code = EZHOIH2D) 37.3 mmHg 35. 0-45 N POC TCO2 ARTERIAL (test code = POCTCO2) 27.3 POC ARTERIAL BLOOD GAS PO2 (test code = PQTMB6H) 424.5 mmHg 80-10 0.0 HH POC HCO3 ARTERIAL (test code = SFLOFV7W) 26.1 MMOL/L 22.0-26.0 H POC BASE EXCESS (test code = POCBEA) 2.0 MMOL/L -4.0-4.0 N POC O2 SATURATION (test code = POCO2S) 100.0 % 90-100 N [id number] 11:14:00* Test Item Value Reference Range Interpretation Comments SODIUM (test code = NA/ABG) 139 MEQ/L 134-147 N [id number] 11:14:00* Test Item Value Reference Range Interpretation Comments POTASSIUM (test code = K/ABG) 5.6 MEQ/L 3.4-5.0 H [id number] 11:14:00* Test Item Value Reference Range Interpretation Comments CHLORIDE (test code = CL/ABG) 100 MEQ/L 100-108 N CREATININE [id number] 11:14:00* Test Item Value Reference Range Interpretation Comments CREATININE ABG (test code = CREAABG) 0.5 mg/dL 0.6-1.0 L [id number] 11:14:00* Test Item Value Reference Range Interpretation Comments HEMOGLOBIN (test code = HGB/ABG) 6.7 G/DL 11.0-15.0 L [id number] 11:14:00* Test Item Value Reference Range Interpretation Comments HEMATOCRIT (test code = HCT/ABG) 20 % 33.0-45.0 L POC IONIZED [id number] 11:14:00* Test Item Value Reference Range Interpretation Comments POC IONIZED CALCIUM (test code = POCCA) 1.09 MMOL/L 1.12-1.32 L POC LACTIC [id number] 11:14:00* Test Item Value Reference Range Interpretation Comments POC LACTIC ACID (test code = POCLAC) 2.0 mmol/l 0.9-1.7 H POC [id number] 11:14:00* Test Item Value Reference Range Interpretation Comments POC GLUCOSE (test code = POCGLU) 144 MG/DL 70-110 H [id number] 10:56:00* Test Item Value Reference Range Interpretation Comments ACT-ISTAT (test code = ACTI) 532 SEC 74-137 H Performed by certified cable machine operator at [facility] POC ARTERIAL BLOOD [id number] 10:46:00* Test Item Value Reference Range Interpretation Comments POC ARTERIAL BLOOD GAS PH (test code = POCPHA) 7.445 7.35-7. 45 N POC ARTERIAL BLOOD GAS PCO2 (test code = PQUVVB5C) 38.0 mmHg 35. 0-45 N POC TCO2 ARTERIAL (test code = POCTCO2) 27.3 POC ARTERIAL BLOOD GAS PO2 (test code = SXLYB3M) 229.7 mmHg 80-10 0.0 HH POC HCO3 ARTERIAL (test code = IOEFGC6O) 26.1 MMOL/L 22.0-26.0 H POC BASE EXCESS (test code = POCBEA) 1.9 MMOL/L -4.0-4.0 N POC O2 SATURATION (test code = POCO2S) 99.8 % 90-100 N [id number] 10:46:00* Test Item Value Reference Range Interpretation Comments SODIUM (test code = NA/ABG) MEQ/L 134-147 [id number] 10:46:00* Test Item Value Reference Range Interpretation Comments POTASSIUM (test code = K/ABG) MEQ/L 3.4-5.0 [id number] 10:46:00* Test Item Value Reference Range Interpretation Comments CHLORIDE (test code = CL/ABG) MEQ/L 100-108 CREATININE [id number] 10:46:00* Test Item Value Reference Range Interpretation Comments CREATININE ABG (test code = CREAABG) mg/dL 0.6-1.0 [id number] 10:46:00* Test Item Value Reference Range Interpretation Comments HEMOGLOBIN (test code = HGB/ABG) G/DL 11.0-15.0 [id number] 10:46:00* Test Item Value Reference Range Interpretation Comments HEMATOCRIT (test code = HCT/ABG) % 33.0-45.0 POC IONIZED [id number] 10:46:00* Test Item Value Reference Range Interpretation Comments POC IONIZED CALCIUM (test code = POCCA) MMOL/L 1.12-1.32 POC LACTIC [id number] 10:46:00* Test Item Value Reference Range Interpretation Comments POC LACTIC ACID (test code = POCLAC) mmol/l 0.9-1.7 POC [id number] 10:46:00* Test Item Value Reference Range Interpretation Comments POC GLUCOSE (test code = POCGLU) MG/DL 70-110 POC ARTERIAL BLOOD [id number] 10:46:00* Test Item Value Reference Range Interpretation Comments POC ARTERIAL BLOOD GAS PH (test code = POCPHA) 7.445 7.35-7. 45 N POC ARTERIAL BLOOD GAS PCO2 (test code = VUTJNV8D) 38.0 mmHg 35. 0-45 N POC TCO2 ARTERIAL (test code = POCTCO2) 27.3 POC ARTERIAL BLOOD GAS PO2 (test code = XQJPW7M) 229.7 mmHg 80-10 0.0 HH POC HCO3 ARTERIAL (test code = NYAFIM8T) 26.1 MMOL/L 22.0-26.0 H POC BASE EXCESS (test code = POCBEA) 1.9 MMOL/L -4.0-4.0 N POC O2 SATURATION (test code = POCO2S) 99.8 % 90-100 N [id number] 10:46:00* Test Item Value Reference Range Interpretation Comments SODIUM (test code = NA/ABG) 139 MEQ/L 134-147 N [id number] 10:46:00* Test Item Value Reference Range Interpretation Comments POTASSIUM (test code = K/ABG) MEQ/L 3.4-5.0 [id number] 10:46:00* Test Item Value Reference Range Interpretation Comments CHLORIDE (test code = CL/ABG) MEQ/L 100-108 CREATININE [id number] 10:46:00* Test Item Value Reference Range Interpretation Comments CREATININE ABG (test code = CREAABG) mg/dL 0.6-1.0 [id number] 10:46:00* Test Item Value Reference Range Interpretation Comments HEMOGLOBIN (test code = HGB/ABG) G/DL 11.0-15.0 [id number] 10:46:00* Test Item Value Reference Range Interpretation Comments HEMATOCRIT (test code = HCT/ABG) % 33.0-45.0 POC IONIZED [id number] 10:46:00* Test Item Value Reference Range Interpretation Comments POC IONIZED CALCIUM (test code = POCCA) MMOL/L 1.12-1.32 POC LACTIC [id number] 10:46:00* Test Item Value Reference Range Interpretation Comments POC LACTIC ACID (test code = POCLAC) mmol/l 0.9-1.7 POC [id number] 10:46:00* Test Item Value Reference Range Interpretation Comments POC GLUCOSE (test code = POCGLU) MG/DL 70-110 POC ARTERIAL BLOOD [id number] 10:46:00* Test Item Value Reference Range Interpretation Comments POC ARTERIAL BLOOD GAS PH (test code = POCPHA) 7.445 7.35-7. 45 N POC ARTERIAL BLOOD GAS PCO2 (test code = EEEVQH9B) 38.0 mmHg 35. 0-45 N POC TCO2 ARTERIAL (test code = POCTCO2) 27.3 POC ARTERIAL BLOOD GAS PO2 (test code = FZWUO3Q) 229.7 mmHg 80-10 0.0 HH POC HCO3 ARTERIAL (test code = YWXDVR5B) 26.1 MMOL/L 22.0-26.0 H POC BASE EXCESS (test code = POCBEA) 1.9 MMOL/L -4.0-4.0 N POC O2 SATURATION (test code = POCO2S) 99.8 % 90-100 N [id number] 10:46:00* Test Item Value Reference Range Interpretation Comments SODIUM (test code = NA/ABG) 139 MEQ/L 134-147 N [id number] 10:46:00* Test Item Value Reference Range Interpretation Comments POTASSIUM (test code = K/ABG) 4.5 MEQ/L 3.4-5.0 N [id number] 10:46:00* Test Item Value Reference Range Interpretation Comments CHLORIDE (test code = CL/ABG) MEQ/L 100-108 CREATININE [id number] 10:46:00* Test Item Value Reference Range Interpretation Comments CREATININE ABG (test code = CREAABG) mg/dL 0.6-1.0 [id number] 10:46:00* Test Item Value Reference Range Interpretation Comments HEMOGLOBIN (test code = HGB/ABG) G/DL 11.0-15.0 [id number] 10:46:00* Test Item Value Reference Range Interpretation Comments HEMATOCRIT (test code = HCT/ABG) % 33.0-45.0 POC IONIZED [id number] 10:46:00* Test Item Value Reference Range Interpretation Comments POC IONIZED CALCIUM (test code = POCCA) MMOL/L 1.12-1.32 POC LACTIC [id number] 10:46:00* Test Item Value Reference Range Interpretation Comments POC LACTIC ACID (test code = POCLAC) mmol/l 0.9-1.7 POC [id number] 10:46:00* Test Item Value Reference Range Interpretation Comments POC GLUCOSE (test code = POCGLU) MG/DL 70-110 POC ARTERIAL BLOOD [id number] 10:46:00* Test Item Value Reference Range Interpretation Comments POC ARTERIAL BLOOD GAS PH (test code = POCPHA) 7.445 7.35-7. 45 N POC ARTERIAL BLOOD GAS PCO2 (test code = PZLXEG2A) 38.0 mmHg 35. 0-45 N POC TCO2 ARTERIAL (test code = POCTCO2) 27.3 POC ARTERIAL BLOOD GAS PO2 (test code = OMWYA8S) 229.7 mmHg 80-10 0.0 HH POC HCO3 ARTERIAL (test code = UIHHYS8G) 26.1 MMOL/L 22.0-26.0 H POC BASE EXCESS (test code = POCBEA) 1.9 MMOL/L -4.0-4.0 N POC O2 SATURATION (test code = POCO2S) 99.8 % 90-100 N [id number] 10:46:00* Test Item Value Reference Range Interpretation Comments SODIUM (test code = NA/ABG) 139 MEQ/L 134-147 N [id number] 10:46:00* Test Item Value Reference Range Interpretation Comments POTASSIUM (test code = K/ABG) 4.5 MEQ/L 3.4-5.0 N [id number] 10:46:00* Test Item Value Reference Range Interpretation Comments CHLORIDE (test code = CL/ABG) MEQ/L 100-108 CREATININE [id number] 10:46:00* Test Item Value Reference Range Interpretation Comments CREATININE ABG (test code = CREAABG) mg/dL 0.6-1.0 [id number] 10:46:00* Test Item Value Reference Range Interpretation Comments HEMOGLOBIN (test code = HGB/ABG) G/DL 11.0-15.0 [id number] 10:46:00* Test Item Value Reference Range Interpretation Comments HEMATOCRIT (test code = HCT/ABG) % 33.0-45.0 POC IONIZED [id number] 10:46:00* Test Item Value Reference Range Interpretation Comments POC IONIZED CALCIUM (test code = POCCA) 1.08 MMOL/L 1.12-1.32 L POC LACTIC [id number] 10:46:00* Test Item Value Reference Range Interpretation Comments POC LACTIC ACID (test code = POCLAC) mmol/l 0.9-1.7 POC [id number] 10:46:00* Test Item Value Reference Range Interpretation Comments POC GLUCOSE (test code = POCGLU) MG/DL 70-110 POC ARTERIAL BLOOD [id number] 10:46:00* Test Item Value Reference Range Interpretation Comments POC ARTERIAL BLOOD GAS PH (test code = POCPHA) 7.445 7.35-7. 45 N POC ARTERIAL BLOOD GAS PCO2 (test code = HAPTCI1P) 38.0 mmHg 35. 0-45 N POC TCO2 ARTERIAL (test code = POCTCO2) 27.3 POC ARTERIAL BLOOD GAS PO2 (test code = GWWCB8M) 229.7 mmHg 80-10 0.0 HH POC HCO3 ARTERIAL (test code = YLCORR0F) 26.1 MMOL/L 22.0-26.0 H POC BASE EXCESS (test code = POCBEA) 1.9 MMOL/L -4.0-4.0 N POC O2 SATURATION (test code = POCO2S) 99.8 % 90-100 N [id number] 10:46:00* Test Item Value Reference Range Interpretation Comments SODIUM (test code = NA/ABG) 139 MEQ/L 134-147 N [id number] 10:46:00* Test Item Value Reference Range Interpretation Comments POTASSIUM (test code = K/ABG) 4.5 MEQ/L 3.4-5.0 N [id number] 10:46:00* Test Item Value Reference Range Interpretation Comments CHLORIDE (test code = CL/ABG) MEQ/L 100-108 CREATININE [id number] 10:46:00* Test Item Value Reference Range Interpretation Comments CREATININE ABG (test code = CREAABG) mg/dL 0.6-1.0 [id number] 10:46:00* Test Item Value Reference Range Interpretation Comments HEMOGLOBIN (test code = HGB/ABG) G/DL 11.0-15.0 [id number] 10:46:00* Test Item Value Reference Range Interpretation Comments HEMATOCRIT (test code = HCT/ABG) % 33.0-45.0 POC IONIZED [id number] 10:46:00* Test Item Value Reference Range Interpretation Comments POC IONIZED CALCIUM (test code = POCCA) 1.08 MMOL/L 1.12-1.32 L POC LACTIC [id number] 10:46:00* Test Item Value Reference Range Interpretation Comments POC LACTIC ACID (test code = POCLAC) mmol/l 0.9-1.7 POC [id number] 10:46:00* Test Item Value Reference Range Interpretation Comments POC GLUCOSE (test code = POCGLU) 149 MG/DL 70-110 H POC ARTERIAL BLOOD [id number] 10:46:00* Test Item Value Reference Range Interpretation Comments POC ARTERIAL BLOOD GAS PH (test code = POCPHA) 7.445 7.35-7. 45 N POC ARTERIAL BLOOD GAS PCO2 (test code = KPZQYX8A) 38.0 mmHg 35. 0-45 N POC TCO2 ARTERIAL (test code = POCTCO2) 27.3 POC ARTERIAL BLOOD GAS PO2 (test code = CSOND4G) 229.7 mmHg 80-10 0.0 HH POC HCO3 ARTERIAL (test code = WULPHH4A) 26.1 MMOL/L 22.0-26.0 H POC BASE EXCESS (test code = POCBEA) 1.9 MMOL/L -4.0-4.0 N POC O2 SATURATION (test code = POCO2S) 99.8 % 90-100 N [id number] 10:46:00* Test Item Value Reference Range Interpretation Comments SODIUM (test code = NA/ABG) 139 MEQ/L 134-147 N [id number] 10:46:00* Test Item Value Reference Range Interpretation Comments POTASSIUM (test code = K/ABG) 4.5 MEQ/L 3.4-5.0 N [id number] 10:46:00* Test Item Value Reference Range Interpretation Comments CHLORIDE (test code = CL/ABG) MEQ/L 100-108 CREATININE [id number] 10:46:00* Test Item Value Reference Range Interpretation Comments CREATININE ABG (test code = CREAABG) mg/dL 0.6-1.0 [id number] 10:46:00* Test Item Value Reference Range Interpretation Comments HEMOGLOBIN (test code = HGB/ABG) G/DL 11.0-15.0 [id number] 10:46:00* Test Item Value Reference Range Interpretation Comments HEMATOCRIT (test code = HCT/ABG) % 33.0-45.0 POC IONIZED [id number] 10:46:00* Test Item Value Reference Range Interpretation Comments POC IONIZED CALCIUM (test code = POCCA) 1.08 MMOL/L 1.12-1.32 L POC LACTIC [id number] 10:46:00* Test Item Value Reference Range Interpretation Comments POC LACTIC ACID (test code = POCLAC) 1.9 mmol/l 0.9-1.7 H POC [id number] 10:46:00* Test Item Value Reference Range Interpretation Comments POC GLUCOSE (test code = POCGLU) 149 MG/DL 70-110 H POC ARTERIAL BLOOD [id number] 10:46:00* Test Item Value Reference Range Interpretation Comments POC ARTERIAL BLOOD GAS PH (test code = POCPHA) 7.445 7.35-7. 45 N POC ARTERIAL BLOOD GAS PCO2 (test code = SKMEYJ7C) 38.0 mmHg 35. 0-45 N POC TCO2 ARTERIAL (test code = POCTCO2) 27.3 POC ARTERIAL BLOOD GAS PO2 (test code = QKEFU9R) 229.7 mmHg 80-10 0.0 HH POC HCO3 ARTERIAL (test code = NJDFLO6T) 26.1 MMOL/L 22.0-26.0 H POC BASE EXCESS (test code = POCBEA) 1.9 MMOL/L -4.0-4.0 N POC O2 SATURATION (test code = POCO2S) 99.8 % 90-100 N [id number] 10:46:00* Test Item Value Reference Range Interpretation Comments SODIUM (test code = NA/ABG) 139 MEQ/L 134-147 N [id number] 10:46:00* Test Item Value Reference Range Interpretation Comments POTASSIUM (test code = K/ABG) 4.5 MEQ/L 3.4-5.0 N [id number] 10:46:00* Test Item Value Reference Range Interpretation Comments CHLORIDE (test code = CL/ABG) MEQ/L 100-108 CREATININE [id number] 10:46:00* Test Item Value Reference Range Interpretation Comments CREATININE ABG (test code = CREAABG) mg/dL 0.6-1.0 [id number] 10:46:00* Test Item Value Reference Range Interpretation Comments HEMOGLOBIN (test code = HGB/ABG) G/DL 11.0-15.0 [id number] 10:46:00* Test Item Value Reference Range Interpretation Comments HEMATOCRIT (test code = HCT/ABG) 20 % 33.0-45.0 L POC IONIZED [id number] 10:46:00* Test Item Value Reference Range Interpretation Comments POC IONIZED CALCIUM (test code = POCCA) 1.08 MMOL/L 1.12-1.32 L POC LACTIC [id number] 10:46:00* Test Item Value Reference Range Interpretation Comments POC LACTIC ACID (test code = POCLAC) 1.9 mmol/l 0.9-1.7 H POC [id number] 10:46:00* Test Item Value Reference Range Interpretation Comments POC GLUCOSE (test code = POCGLU) 149 MG/DL 70-110 H POC ARTERIAL BLOOD [id number] 10:46:00* Test Item Value Reference Range Interpretation Comments POC ARTERIAL BLOOD GAS PH (test code = POCPHA) 7.445 7.35-7. 45 N POC ARTERIAL BLOOD GAS PCO2 (test code = WXFLVD1J) 38.0 mmHg 35. 0-45 N POC TCO2 ARTERIAL (test code = POCTCO2) 27.3 POC ARTERIAL BLOOD GAS PO2 (test code = RQYGO0V) 229.7 mmHg 80-10 0.0 HH POC HCO3 ARTERIAL (test code = ZSTUNH3E) 26.1 MMOL/L 22.0-26.0 H POC BASE EXCESS (test code = POCBEA) 1.9 MMOL/L -4.0-4.0 N POC O2 SATURATION (test code = POCO2S) 99.8 % 90-100 N [id number] 10:46:00* Test Item Value Reference Range Interpretation Comments SODIUM (test code = NA/ABG) 139 MEQ/L 134-147 N [id number] 10:46:00* Test Item Value Reference Range Interpretation Comments POTASSIUM (test code = K/ABG) 4.5 MEQ/L 3.4-5.0 N [id number] 10:46:00* Test Item Value Reference Range Interpretation Comments CHLORIDE (test code = CL/ABG) MEQ/L 100-108 CREATININE [id number] 10:46:00* Test Item Value Reference Range Interpretation Comments CREATININE ABG (test code = CREAABG) mg/dL 0.6-1.0 [id number] 10:46:00* Test Item Value Reference Range Interpretation Comments HEMOGLOBIN (test code = HGB/ABG) 7.0 G/DL 11.0-15.0 L [id number] 10:46:00* Test Item Value Reference Range Interpretation Comments HEMATOCRIT (test code = HCT/ABG) 20 % 33.0-45.0 L POC IONIZED [id number] 10:46:00* Test Item Value Reference Range Interpretation Comments POC IONIZED CALCIUM (test code = POCCA) 1.08 MMOL/L 1.12-1.32 L POC LACTIC [id number] 10:46:00* Test Item Value Reference Range Interpretation Comments POC LACTIC ACID (test code = POCLAC) 1.9 mmol/l 0.9-1.7 H POC [id number] 10:46:00* Test Item Value Reference Range Interpretation Comments POC GLUCOSE (test code = POCGLU) 149 MG/DL 70-110 H POC ARTERIAL BLOOD [id number] 10:46:00* Test Item Value Reference Range Interpretation Comments POC ARTERIAL BLOOD GAS PH (test code = POCPHA) 7.445 7.35-7. 45 N POC ARTERIAL BLOOD GAS PCO2 (test code = RBRCEL3B) 38.0 mmHg 35. 0-45 N POC TCO2 ARTERIAL (test code = POCTCO2) 27.3 POC ARTERIAL BLOOD GAS PO2 (test code = ZXXRK3U) 229.7 mmHg 80-10 0.0 HH POC HCO3 ARTERIAL (test code = EZSWYK0K) 26.1 MMOL/L 22.0-26.0 H POC BASE EXCESS (test code = POCBEA) 1.9 MMOL/L -4.0-4.0 N POC O2 SATURATION (test code = POCO2S) 99.8 % 90-100 N [id number] 10:46:00* Test Item Value Reference Range Interpretation Comments SODIUM (test code = NA/ABG) 139 MEQ/L 134-147 N [id number] 10:46:00* Test Item Value Reference Range Interpretation Comments POTASSIUM (test code = K/ABG) 4.5 MEQ/L 3.4-5.0 N [id number] 10:46:00* Test Item Value Reference Range Interpretation Comments CHLORIDE (test code = CL/ABG) 102 MEQ/L 100-108 N CREATININE [id number] 10:46:00* Test Item Value Reference Range Interpretation Comments CREATININE ABG (test code = CREAABG) mg/dL 0.6-1.0 [id number] 10:46:00* Test Item Value Reference Range Interpretation Comments HEMOGLOBIN (test code = HGB/ABG) 7.0 G/DL 11.0-15.0 L [id number] 10:46:00* Test Item Value Reference Range Interpretation Comments HEMATOCRIT (test code = HCT/ABG) 20 % 33.0-45.0 L POC IONIZED [id number] 10:46:00* Test Item Value Reference Range Interpretation Comments POC IONIZED CALCIUM (test code = POCCA) 1.08 MMOL/L 1.12-1.32 L POC LACTIC [id number] 10:46:00* Test Item Value Reference Range Interpretation Comments POC LACTIC ACID (test code = POCLAC) 1.9 mmol/l 0.9-1.7 H POC [id number] 10:46:00* Test Item Value Reference Range Interpretation Comments POC GLUCOSE (test code = POCGLU) 149 MG/DL 70-110 H POC ARTERIAL BLOOD [id number] 10:46:00* Test Item Value Reference Range Interpretation Comments POC ARTERIAL BLOOD GAS PH (test code = POCPHA) 7.445 7.35-7. 45 N POC ARTERIAL BLOOD GAS PCO2 (test code = YPCVQG9Q) 38.0 mmHg 35. 0-45 N POC TCO2 ARTERIAL (test code = POCTCO2) 27.3 POC ARTERIAL BLOOD GAS PO2 (test code = SGNVH0T) 229.7 mmHg 80-10 0.0 HH POC HCO3 ARTERIAL (test code = XWJDCN9L) 26.1 MMOL/L 22.0-26.0 H POC BASE EXCESS (test code = POCBEA) 1.9 MMOL/L -4.0-4.0 N POC O2 SATURATION (test code = POCO2S) 99.8 % 90-100 N [id number] 10:46:00* Test Item Value Reference Range Interpretation Comments SODIUM (test code = NA/ABG) 139 MEQ/L 134-147 N [id number] 10:46:00* Test Item Value Reference Range Interpretation Comments POTASSIUM (test code = K/ABG) 4.5 MEQ/L 3.4-5.0 N [id number] 10:46:00* Test Item Value Reference Range Interpretation Comments CHLORIDE (test code = CL/ABG) 102 MEQ/L 100-108 N CREATININE [id number] 10:46:00* Test Item Value Reference Range Interpretation Comments CREATININE ABG (test code = CREAABG) 0.7 mg/dL 0.6-1.0 N [id number] 10:46:00* Test Item Value Reference Range Interpretation Comments HEMOGLOBIN (test code = HGB/ABG) 7.0 G/DL 11.0-15.0 L [id number] 10:46:00* Test Item Value Reference Range Interpretation Comments HEMATOCRIT (test code = HCT/ABG) 20 % 33.0-45.0 L POC IONIZED [id number] 10:46:00* Test Item Value Reference Range Interpretation Comments POC IONIZED CALCIUM (test code = POCCA) 1.08 MMOL/L 1.12-1.32 L POC LACTIC [id number] 10:46:00* Test Item Value Reference Range Interpretation Comments POC LACTIC ACID (test code = POCLAC) 1.9 mmol/l 0.9-1.7 H POC [id number] 10:46:00* Test Item Value Reference Range Interpretation Comments POC GLUCOSE (test code = POCGLU) 149 MG/DL 70-110 H [id number] 10:31:00* Test Item Value Reference Range Interpretation Comments ACT-ISTAT (test code = ACTI) 571 SEC 74-137 H Performed by certified cable machine operator at [facility] POC ARTERIAL BLOOD [id number] 10:16:00* Test Item Value Reference Range Interpretation Comments POC ARTERIAL BLOOD GAS PH (test code = POCPHA) 7.526 7.35-7. 45 HH POC ARTERIAL BLOOD GAS PCO2 (test code = MYWEHW2S) 30.6 mmHg 35. 0-45 L POC TCO2 ARTERIAL (test code = POCTCO2) 26.3 POC ARTERIAL BLOOD GAS PO2 (test code = BZDCL4U) 307.7 mmHg 80-10 0.0 HH POC HCO3 ARTERIAL (test code = DAMWMT0B) 25.4 MMOL/L 22.0-26.0 N POC BASE EXCESS (test code = POCBEA) 2.6 MMOL/L -4.0-4.0 N POC O2 SATURATION (test code = POCO2S) 99.9 % 90-100 N [id number] 10:16:00* Test Item Value Reference Range Interpretation Comments SODIUM (test code = NA/ABG) MEQ/L 134-147 [id number] 10:16:00* Test Item Value Reference Range Interpretation Comments POTASSIUM (test code = K/ABG) MEQ/L 3.4-5.0 [id number] 10:16:00* Test Item Value Reference Range Interpretation Comments CHLORIDE (test code = CL/ABG) MEQ/L 100-108 CREATININE [id number] 10:16:00* Test Item Value Reference Range Interpretation Comments CREATININE ABG (test code = CREAABG) mg/dL 0.6-1.0 [id number] 10:16:00* Test Item Value Reference Range Interpretation Comments HEMOGLOBIN (test code = HGB/ABG) G/DL 11.0-15.0 [id number] 10:16:00* Test Item Value Reference Range Interpretation Comments HEMATOCRIT (test code = HCT/ABG) % 33.0-45.0 POC IONIZED [id number] 10:16:00* Test Item Value Reference Range Interpretation Comments POC IONIZED CALCIUM (test code = POCCA) MMOL/L 1.12-1.32 POC LACTIC [id number] 10:16:00* Test Item Value Reference Range Interpretation Comments POC LACTIC ACID (test code = POCLAC) mmol/l 0.9-1.7 POC [id number] 10:16:00* Test Item Value Reference Range Interpretation Comments POC GLUCOSE (test code = POCGLU) MG/DL 70-110 POC ARTERIAL BLOOD [id number] 10:16:00* Test Item Value Reference Range Interpretation Comments POC ARTERIAL BLOOD GAS PH (test code = POCPHA) 7.526 7.35-7. 45 HH POC ARTERIAL BLOOD GAS PCO2 (test code = JJNKNJ8G) 30.6 mmHg 35. 0-45 L POC TCO2 ARTERIAL (test code = POCTCO2) 26.3 POC ARTERIAL BLOOD GAS PO2 (test code = GUPLN2F) 307.7 mmHg 80-10 0.0 HH POC HCO3 ARTERIAL (test code = TEIRVC5E) 25.4 MMOL/L 22.0-26.0 N POC BASE EXCESS (test code = POCBEA) 2.6 MMOL/L -4.0-4.0 N POC O2 SATURATION (test code = POCO2S) 99.9 % 90-100 N [id number] 10:16:00* Test Item Value Reference Range Interpretation Comments SODIUM (test code = NA/ABG) 138 MEQ/L 134-147 N [id number] 10:16:00* Test Item Value Reference Range Interpretation Comments POTASSIUM (test code = K/ABG) MEQ/L 3.4-5.0 [id number] 10:16:00* Test Item Value Reference Range Interpretation Comments CHLORIDE (test code = CL/ABG) MEQ/L 100-108 CREATININE [id number] 10:16:00* Test Item Value Reference Range Interpretation Comments CREATININE ABG (test code = CREAABG) mg/dL 0.6-1.0 [id number] 10:16:00* Test Item Value Reference Range Interpretation Comments HEMOGLOBIN (test code = HGB/ABG) G/DL 11.0-15.0 [id number] 10:16:00* Test Item Value Reference Range Interpretation Comments HEMATOCRIT (test code = HCT/ABG) % 33.0-45.0 POC IONIZED [id number] 10:16:00* Test Item Value Reference Range Interpretation Comments POC IONIZED CALCIUM (test code = POCCA) MMOL/L 1.12-1.32 POC LACTIC [id number] 10:16:00* Test Item Value Reference Range Interpretation Comments POC LACTIC ACID (test code = POCLAC) mmol/l 0.9-1.7 POC [id number] 10:16:00* Test Item Value Reference Range Interpretation Comments POC GLUCOSE (test code = POCGLU) MG/DL 70-110 POC ARTERIAL BLOOD [id number] 10:16:00* Test Item Value Reference Range Interpretation Comments POC ARTERIAL BLOOD GAS PH (test code = POCPHA) 7.526 7.35-7. 45 HH POC ARTERIAL BLOOD GAS PCO2 (test code = MNDKDF0G) 30.6 mmHg 35. 0-45 L POC TCO2 ARTERIAL (test code = POCTCO2) 26.3 POC ARTERIAL BLOOD GAS PO2 (test code = ZKFCH4O) 307.7 mmHg 80-10 0.0 HH POC HCO3 ARTERIAL (test code = EJYTWY8F) 25.4 MMOL/L 22.0-26.0 N POC BASE EXCESS (test code = POCBEA) 2.6 MMOL/L -4.0-4.0 N POC O2 SATURATION (test code = POCO2S) 99.9 % 90-100 N [id number] 10:16:00* Test Item Value Reference Range Interpretation Comments SODIUM (test code = NA/ABG) 138 MEQ/L 134-147 N [id number] 10:16:00* Test Item Value Reference Range Interpretation Comments POTASSIUM (test code = K/ABG) 4.7 MEQ/L 3.4-5.0 N [id number] 10:16:00* Test Item Value Reference Range Interpretation Comments CHLORIDE (test code = CL/ABG) MEQ/L 100-108 CREATININE [id number] 10:16:00* Test Item Value Reference Range Interpretation Comments CREATININE ABG (test code = CREAABG) mg/dL 0.6-1.0 [id number] 10:16:00* Test Item Value Reference Range Interpretation Comments HEMOGLOBIN (test code = HGB/ABG) G/DL 11.0-15.0 [id number] 10:16:00* Test Item Value Reference Range Interpretation Comments HEMATOCRIT (test code = HCT/ABG) % 33.0-45.0 POC IONIZED [id number] 10:16:00* Test Item Value Reference Range Interpretation Comments POC IONIZED CALCIUM (test code = POCCA) MMOL/L 1.12-1.32 POC LACTIC [id number] 10:16:00* Test Item Value Reference Range Interpretation Comments POC LACTIC ACID (test code = POCLAC) mmol/l 0.9-1.7 POC [id number] 10:16:00* Test Item Value Reference Range Interpretation Comments POC GLUCOSE (test code = POCGLU) MG/DL 70-110 POC ARTERIAL BLOOD [id number] 10:16:00* Test Item Value Reference Range Interpretation Comments POC ARTERIAL BLOOD GAS PH (test code = POCPHA) 7.526 7.35-7. 45 HH POC ARTERIAL BLOOD GAS PCO2 (test code = LBNCQC9G) 30.6 mmHg 35. 0-45 L POC TCO2 ARTERIAL (test code = POCTCO2) 26.3 POC ARTERIAL BLOOD GAS PO2 (test code = YMFLO0E) 307.7 mmHg 80-10 0.0 HH POC HCO3 ARTERIAL (test code = VDEXOM0U) 25.4 MMOL/L 22.0-26.0 N POC BASE EXCESS (test code = POCBEA) 2.6 MMOL/L -4.0-4.0 N POC O2 SATURATION (test code = POCO2S) 99.9 % 90-100 N [id number] 10:16:00* Test Item Value Reference Range Interpretation Comments SODIUM (test code = NA/ABG) 138 MEQ/L 134-147 N [id number] 10:16:00* Test Item Value Reference Range Interpretation Comments POTASSIUM (test code = K/ABG) 4.7 MEQ/L 3.4-5.0 N [id number] 10:16:00* Test Item Value Reference Range Interpretation Comments CHLORIDE (test code = CL/ABG) MEQ/L 100-108 CREATININE [id number] 10:16:00* Test Item Value Reference Range Interpretation Comments CREATININE ABG (test code = CREAABG) mg/dL 0.6-1.0 [id number] 10:16:00* Test Item Value Reference Range Interpretation Comments HEMOGLOBIN (test code = HGB/ABG) G/DL 11.0-15.0 [id number] 10:16:00* Test Item Value Reference Range Interpretation Comments HEMATOCRIT (test code = HCT/ABG) % 33.0-45.0 POC IONIZED [id number] 10:16:00* Test Item Value Reference Range Interpretation Comments POC IONIZED CALCIUM (test code = POCCA) 1.05 MMOL/L 1.12-1.32 L POC LACTIC [id number] 10:16:00* Test Item Value Reference Range Interpretation Comments POC LACTIC ACID (test code = POCLAC) mmol/l 0.9-1.7 POC [id number] 10:16:00* Test Item Value Reference Range Interpretation Comments POC GLUCOSE (test code = POCGLU) MG/DL 70-110 POC ARTERIAL BLOOD [id number] 10:16:00* Test Item Value Reference Range Interpretation Comments POC ARTERIAL BLOOD GAS PH (test code = POCPHA) 7.526 7.35-7. 45 HH POC ARTERIAL BLOOD GAS PCO2 (test code = XOTAPW1G) 30.6 mmHg 35. 0-45 L POC TCO2 ARTERIAL (test code = POCTCO2) 26.3 POC ARTERIAL BLOOD GAS PO2 (test code = VXANF4V) 307.7 mmHg 80-10 0.0 HH POC HCO3 ARTERIAL (test code = XRAYBF1A) 25.4 MMOL/L 22.0-26.0 N POC BASE EXCESS (test code = POCBEA) 2.6 MMOL/L -4.0-4.0 N POC O2 SATURATION (test code = POCO2S) 99.9 % 90-100 N [id number] 10:16:00* Test Item Value Reference Range Interpretation Comments SODIUM (test code = NA/ABG) 138 MEQ/L 134-147 N [id number] 10:16:00* Test Item Value Reference Range Interpretation Comments POTASSIUM (test code = K/ABG) 4.7 MEQ/L 3.4-5.0 N [id number] 10:16:00* Test Item Value Reference Range Interpretation Comments CHLORIDE (test code = CL/ABG) MEQ/L 100-108 CREATININE [id number] 10:16:00* Test Item Value Reference Range Interpretation Comments CREATININE ABG (test code = CREAABG) mg/dL 0.6-1.0 [id number] 10:16:00* Test Item Value Reference Range Interpretation Comments HEMOGLOBIN (test code = HGB/ABG) G/DL 11.0-15.0 [id number] 10:16:00* Test Item Value Reference Range Interpretation Comments HEMATOCRIT (test code = HCT/ABG) % 33.0-45.0 POC IONIZED [id number] 10:16:00* Test Item Value Reference Range Interpretation Comments POC IONIZED CALCIUM (test code = POCCA) 1.05 MMOL/L 1.12-1.32 L POC LACTIC [id number] 10:16:00* Test Item Value Reference Range Interpretation Comments POC LACTIC ACID (test code = POCLAC) mmol/l 0.9-1.7 POC [id number] 10:16:00* Test Item Value Reference Range Interpretation Comments POC GLUCOSE (test code = POCGLU) 151 MG/DL 70-110 H POC ARTERIAL BLOOD [id number] 10:16:00* Test Item Value Reference Range Interpretation Comments POC ARTERIAL BLOOD GAS PH (test code = POCPHA) 7.526 7.35-7. 45 HH POC ARTERIAL BLOOD GAS PCO2 (test code = VABVWK3N) 30.6 mmHg 35. 0-45 L POC TCO2 ARTERIAL (test code = POCTCO2) 26.3 POC ARTERIAL BLOOD GAS PO2 (test code = GFHFH3U) 307.7 mmHg 80-10 0.0 HH POC HCO3 ARTERIAL (test code = TIYWXA7G) 25.4 MMOL/L 22.0-26.0 N POC BASE EXCESS (test code = POCBEA) 2.6 MMOL/L -4.0-4.0 N POC O2 SATURATION (test code = POCO2S) 99.9 % 90-100 N [id number] 10:16:00* Test Item Value Reference Range Interpretation Comments SODIUM (test code = NA/ABG) 138 MEQ/L 134-147 N [id number] 10:16:00* Test Item Value Reference Range Interpretation Comments POTASSIUM (test code = K/ABG) 4.7 MEQ/L 3.4-5.0 N [id number] 10:16:00* Test Item Value Reference Range Interpretation Comments CHLORIDE (test code = CL/ABG) MEQ/L 100-108 CREATININE [id number] 10:16:00* Test Item Value Reference Range Interpretation Comments CREATININE ABG (test code = CREAABG) mg/dL 0.6-1.0 [id number] 10:16:00* Test Item Value Reference Range Interpretation Comments HEMOGLOBIN (test code = HGB/ABG) G/DL 11.0-15.0 [id number] 10:16:00* Test Item Value Reference Range Interpretation Comments HEMATOCRIT (test code = HCT/ABG) % 33.0-45.0 POC IONIZED [id number] 10:16:00* Test Item Value Reference Range Interpretation Comments POC IONIZED CALCIUM (test code = POCCA) 1.05 MMOL/L 1.12-1.32 L POC LACTIC [id number] 10:16:00* Test Item Value Reference Range Interpretation Comments POC LACTIC ACID (test code = POCLAC) 1.7 mmol/l 0.9-1.7 N POC [id number] 10:16:00* Test Item Value Reference Range Interpretation Comments POC GLUCOSE (test code = POCGLU) 151 MG/DL 70-110 H POC ARTERIAL BLOOD [id number] 10:16:00* Test Item Value Reference Range Interpretation Comments POC ARTERIAL BLOOD GAS PH (test code = POCPHA) 7.526 7.35-7. 45 HH POC ARTERIAL BLOOD GAS PCO2 (test code = IMSSWS4O) 30.6 mmHg 35. 0-45 L POC TCO2 ARTERIAL (test code = POCTCO2) 26.3 POC ARTERIAL BLOOD GAS PO2 (test code = OACZR5Y) 307.7 mmHg 80-10 0.0 HH POC HCO3 ARTERIAL (test code = LVWFRK6U) 25.4 MMOL/L 22.0-26.0 N POC BASE EXCESS (test code = POCBEA) 2.6 MMOL/L -4.0-4.0 N POC O2 SATURATION (test code = POCO2S) 99.9 % 90-100 N [id number] 10:16:00* Test Item Value Reference Range Interpretation Comments SODIUM (test code = NA/ABG) 138 MEQ/L 134-147 N [id number] 10:16:00* Test Item Value Reference Range Interpretation Comments POTASSIUM (test code = K/ABG) 4.7 MEQ/L 3.4-5.0 N [id number] 10:16:00* Test Item Value Reference Range Interpretation Comments CHLORIDE (test code = CL/ABG) MEQ/L 100-108 CREATININE [id number] 10:16:00* Test Item Value Reference Range Interpretation Comments CREATININE ABG (test code = CREAABG) mg/dL 0.6-1.0 [id number] 10:16:00* Test Item Value Reference Range Interpretation Comments HEMOGLOBIN (test code = HGB/ABG) G/DL 11.0-15.0 [id number] 10:16:00* Test Item Value Reference Range Interpretation Comments HEMATOCRIT (test code = HCT/ABG) 21 % 33.0-45.0 L POC IONIZED [id number] 10:16:00* Test Item Value Reference Range Interpretation Comments POC IONIZED CALCIUM (test code = POCCA) 1.05 MMOL/L 1.12-1.32 L POC LACTIC [id number] 10:16:00* Test Item Value Reference Range Interpretation Comments POC LACTIC ACID (test code = POCLAC) 1.7 mmol/l 0.9-1.7 N POC [id number] 10:16:00* Test Item Value Reference Range Interpretation Comments POC GLUCOSE (test code = POCGLU) 151 MG/DL 70-110 H POC ARTERIAL BLOOD [id number] 10:16:00* Test Item Value Reference Range Interpretation Comments POC ARTERIAL BLOOD GAS PH (test code = POCPHA) 7.526 7.35-7. 45 HH POC ARTERIAL BLOOD GAS PCO2 (test code = TWZYYT6K) 30.6 mmHg 35. 0-45 L POC TCO2 ARTERIAL (test code = POCTCO2) 26.3 POC ARTERIAL BLOOD GAS PO2 (test code = EBIIT0Z) 307.7 mmHg 80-10 0.0 HH POC HCO3 ARTERIAL (test code = MLSPAR6Z) 25.4 MMOL/L 22.0-26.0 N POC BASE EXCESS (test code = POCBEA) 2.6 MMOL/L -4.0-4.0 N POC O2 SATURATION (test code = POCO2S) 99.9 % 90-100 N [id number] 10:16:00* Test Item Value Reference Range Interpretation Comments SODIUM (test code = NA/ABG) 138 MEQ/L 134-147 N [id number] 10:16:00* Test Item Value Reference Range Interpretation Comments POTASSIUM (test code = K/ABG) 4.7 MEQ/L 3.4-5.0 N [id number] 10:16:00* Test Item Value Reference Range Interpretation Comments CHLORIDE (test code = CL/ABG) MEQ/L 100-108 CREATININE [id number] 10:16:00* Test Item Value Reference Range Interpretation Comments CREATININE ABG (test code = CREAABG) mg/dL 0.6-1.0 [id number] 10:16:00* Test Item Value Reference Range Interpretation Comments HEMOGLOBIN (test code = HGB/ABG) 7.2 G/DL 11.0-15.0 L [id number] 10:16:00* Test Item Value Reference Range Interpretation Comments HEMATOCRIT (test code = HCT/ABG) 21 % 33.0-45.0 L POC IONIZED [id number] 10:16:00* Test Item Value Reference Range Interpretation Comments POC IONIZED CALCIUM (test code = POCCA) 1.05 MMOL/L 1.12-1.32 L POC LACTIC [id number] 10:16:00* Test Item Value Reference Range Interpretation Comments POC LACTIC ACID (test code = POCLAC) 1.7 mmol/l 0.9-1.7 N POC [id number] 10:16:00* Test Item Value Reference Range Interpretation Comments POC GLUCOSE (test code = POCGLU) 151 MG/DL 70-110 H POC ARTERIAL BLOOD [id number] 10:16:00* Test Item Value Reference Range Interpretation Comments POC ARTERIAL BLOOD GAS PH (test code = POCPHA) 7.526 7.35-7. 45 HH POC ARTERIAL BLOOD GAS PCO2 (test code = MTYYCB2E) 30.6 mmHg 35. 0-45 L POC TCO2 ARTERIAL (test code = POCTCO2) 26.3 POC ARTERIAL BLOOD GAS PO2 (test code = WYKID2A) 307.7 mmHg 80-10 0.0 HH POC HCO3 ARTERIAL (test code = FMXJPH4U) 25.4 MMOL/L 22.0-26.0 N POC BASE EXCESS (test code = POCBEA) 2.6 MMOL/L -4.0-4.0 N POC O2 SATURATION (test code = POCO2S) 99.9 % 90-100 N [id number] 10:16:00* Test Item Value Reference Range Interpretation Comments SODIUM (test code = NA/ABG) 138 MEQ/L 134-147 N [id number] 10:16:00* Test Item Value Reference Range Interpretation Comments POTASSIUM (test code = K/ABG) 4.7 MEQ/L 3.4-5.0 N [id number] 10:16:00* Test Item Value Reference Range Interpretation Comments CHLORIDE (test code = CL/ABG) 101 MEQ/L 100-108 N CREATININE [id number] 10:16:00* Test Item Value Reference Range Interpretation Comments CREATININE ABG (test code = CREAABG) mg/dL 0.6-1.0 [id number] 10:16:00* Test Item Value Reference Range Interpretation Comments HEMOGLOBIN (test code = HGB/ABG) 7.2 G/DL 11.0-15.0 L [id number] 10:16:00* Test Item Value Reference Range Interpretation Comments HEMATOCRIT (test code = HCT/ABG) 21 % 33.0-45.0 L POC IONIZED [id number] 10:16:00* Test Item Value Reference Range Interpretation Comments POC IONIZED CALCIUM (test code = POCCA) 1.05 MMOL/L 1.12-1.32 L POC LACTIC [id number] 10:16:00* Test Item Value Reference Range Interpretation Comments POC LACTIC ACID (test code = POCLAC) 1.7 mmol/l 0.9-1.7 N POC [id number] 10:16:00* Test Item Value Reference Range Interpretation Comments POC GLUCOSE (test code = POCGLU) 151 MG/DL 70-110 H POC ARTERIAL BLOOD [id number] 10:16:00* Test Item Value Reference Range Interpretation Comments POC ARTERIAL BLOOD GAS PH (test code = POCPHA) 7.526 7.35-7. 45 HH POC ARTERIAL BLOOD GAS PCO2 (test code = TLFINQ5Y) 30.6 mmHg 35. 0-45 L POC TCO2 ARTERIAL (test code = POCTCO2) 26.3 POC ARTERIAL BLOOD GAS PO2 (test code = SUGPS9O) 307.7 mmHg 80-10 0.0 HH POC HCO3 ARTERIAL (test code = EJOWAE5X) 25.4 MMOL/L 22.0-26.0 N POC BASE EXCESS (test code = POCBEA) 2.6 MMOL/L -4.0-4.0 N POC O2 SATURATION (test code = POCO2S) 99.9 % 90-100 N [id number] 10:16:00* Test Item Value Reference Range Interpretation Comments SODIUM (test code = NA/ABG) 138 MEQ/L 134-147 N [id number] 10:16:00* Test Item Value Reference Range Interpretation Comments POTASSIUM (test code = K/ABG) 4.7 MEQ/L 3.4-5.0 N [id number] 10:16:00* Test Item Value Reference Range Interpretation Comments CHLORIDE (test code = CL/ABG) 101 MEQ/L 100-108 N CREATININE [id number] 10:16:00* Test Item Value Reference Range Interpretation Comments CREATININE ABG (test code = CREAABG) 0.7 mg/dL 0.6-1.0 [id number] 10:16:00* Test Item Value Reference Range Interpretation Comments HEMOGLOBIN (test code = HGB/ABG) 7.2 G/DL 11.0-15.0 L [id number] 10:16:00* Test Item Value Reference Range Interpretation Comments HEMATOCRIT (test code = HCT/ABG) 21 % 33.0-45.0 L POC IONIZED [id number] 10:16:00* Test Item Value Reference Range Interpretation Comments POC IONIZED CALCIUM (test code = POCCA) 1.05 MMOL/L 1.12-1.32 L POC LACTIC [id number] 10:16:00* Test Item Value Reference Range Interpretation Comments POC LACTIC ACID (test code = POCLAC) 1.7 mmol/l 0.9-1.7 N POC [id number] 10:16:00* Test Item Value Reference Range Interpretation Comments POC GLUCOSE (test code = POCGLU) 151 MG/DL 70-110 H [id number] 10:05:00* Test Item Value Reference Range Interpretation Comments ACT-ISTAT (test code = ACTI) 466 SEC 74-137 H Performed by certified cable machine operator at [facility] POC ARTERIAL BLOOD [id number] 09:57:00* Test Item Value Reference Range Interpretation Comments POC ARTERIAL BLOOD GAS PH (test code = POCPHA) 7.494 7.35-7. 45 H POC ARTERIAL BLOOD GAS PCO2 (test code = NMCFJP3J) 29.8 mmHg 35. 0-45 LL POC TCO2 ARTERIAL (test code = POCTCO2) 23.8 POC ARTERIAL BLOOD GAS PO2 (test code = SYWEH1S) 547.2 mmHg 80-10 0.0 HH POC HCO3 ARTERIAL (test code = HHXYQS6B) 22.9 MMOL/L 22.0-26.0 N POC BASE EXCESS (test code = POCBEA) -0.2 MMOL/L -4.0-4.0 N POC O2 SATURATION (test code = POCO2S) 100.0 % 90-100 N [id number] 09:57:00* Test Item Value Reference Range Interpretation Comments SODIUM (test code = NA/ABG) MEQ/L 134-147 [id number] 09:57:00* Test Item Value Reference Range Interpretation Comments POTASSIUM (test code = K/ABG) MEQ/L 3.4-5.0 [id number] 09:57:00* Test Item Value Reference Range Interpretation Comments CHLORIDE (test code = CL/ABG) MEQ/L 100-108 CREATININE [id number] 09:57:00* Test Item Value Reference Range Interpretation Comments CREATININE ABG (test code = CREAABG) mg/dL 0.6-1.0 [id number] 09:57:00* Test Item Value Reference Range Interpretation Comments HEMOGLOBIN (test code = HGB/ABG) G/DL 11.0-15.0 [id number] 09:57:00* Test Item Value Reference Range Interpretation Comments HEMATOCRIT (test code = HCT/ABG) % 33.0-45.0 POC IONIZED [id number] 09:57:00* Test Item Value Reference Range Interpretation Comments POC IONIZED CALCIUM (test code = POCCA) MMOL/L 1.12-1.32 POC LACTIC [id number] 09:57:00* Test Item Value Reference Range Interpretation Comments POC LACTIC ACID (test code = POCLAC) mmol/l 0.9-1.7 POC [id number] 09:57:00* Test Item Value Reference Range Interpretation Comments POC GLUCOSE (test code = POCGLU) MG/DL 70-110 POC ARTERIAL BLOOD [id number] 09:57:00* Test Item Value Reference Range Interpretation Comments POC ARTERIAL BLOOD GAS PH (test code = POCPHA) 7.494 7.35-7. 45 H POC ARTERIAL BLOOD GAS PCO2 (test code = [id number]) 29.8 mmHg 35. 0-45 LL POC TCO2 ARTERIAL (test code = POCTCO2) 23.8 POC ARTERIAL BLOOD GAS PO2 (test code = MLIQL2A) 547.2 mmHg 80-10 0.0 HH POC HCO3 ARTERIAL (test code = JYXJMZ7V) 22.9 MMOL/L 22.0-26.0 N POC BASE EXCESS (test code = POCBEA) -0.2 MMOL/L -4.0-4.0 N POC O2 SATURATION (test code = POCO2S) 100.0 % 90-100 N [id number] 09:57:00* Test Item Value Reference Range Interpretation Comments SODIUM (test code = NA/ABG) 137 MEQ/L 134-147 N [id number] 09:57:00* Test Item Value Reference Range Interpretation Comments POTASSIUM (test code = K/ABG) MEQ/L 3.4-5.0 [id number] 09:57:00* Test Item Value Reference Range Interpretation Comments CHLORIDE (test code = CL/ABG) MEQ/L 100-108 CREATININE [id number] 09:57:00* Test Item Value Reference Range Interpretation Comments CREATININE ABG (test code = CREAABG) mg/dL 0.6-1.0 [id number] 09:57:00* Test Item Value Reference Range Interpretation Comments HEMOGLOBIN (test code = HGB/ABG) G/DL 11.0-15.0 [id number] 09:57:00* Test Item Value Reference Range Interpretation Comments HEMATOCRIT (test code = HCT/ABG) % 33.0-45.0 POC IONIZED [id number] 09:57:00* Test Item Value Reference Range Interpretation Comments POC IONIZED CALCIUM (test code = POCCA) MMOL/L 1.12-1.32 POC LACTIC [id number] 09:57:00* Test Item Value Reference Range Interpretation Comments POC LACTIC ACID (test code = POCLAC) mmol/l 0.9-1.7 POC [id number] 09:57:00* Test Item Value Reference Range Interpretation Comments POC GLUCOSE (test code = POCGLU) MG/DL 70-110 POC ARTERIAL BLOOD [id number] 09:57:00* Test Item Value Reference Range Interpretation Comments POC ARTERIAL BLOOD GAS PH (test code = POCPHA) 7.494 7.35-7. 45 H POC ARTERIAL BLOOD GAS PCO2 (test code = XETPCA4A) 29.8 mmHg 35. 0-45 LL POC TCO2 ARTERIAL (test code = POCTCO2) 23.8 POC ARTERIAL BLOOD GAS PO2 (test code = KEEKZ7P) 547.2 mmHg 80-10 0.0 HH POC HCO3 ARTERIAL (test code = EXDIKY1B) 22.9 MMOL/L 22.0-26.0 N POC BASE EXCESS (test code = POCBEA) -0.2 MMOL/L -4.0-4.0 N POC O2 SATURATION (test code = POCO2S) 100.0 % 90-100 N [id number] 09:57:00* Test Item Value Reference Range Interpretation Comments SODIUM (test code = NA/ABG) 137 MEQ/L 134-147 N [id number] 09:57:00* Test Item Value Reference Range Interpretation Comments POTASSIUM (test code = K/ABG) 4.5 MEQ/L 3.4-5.0 N [id number] 09:57:00* Test Item Value Reference Range Interpretation Comments CHLORIDE (test code = CL/ABG) MEQ/L 100-108 CREATININE [id number] 09:57:00* Test Item Value Reference Range Interpretation Comments CREATININE ABG (test code = CREAABG) mg/dL 0.6-1.0 [id number] 09:57:00* Test Item Value Reference Range Interpretation Comments HEMOGLOBIN (test code = HGB/ABG) G/DL 11.0-15.0 [id number] 09:57:00* Test Item Value Reference Range Interpretation Comments HEMATOCRIT (test code = HCT/ABG) % 33.0-45.0 POC IONIZED [id number] 09:57:00* Test Item Value Reference Range Interpretation Comments POC IONIZED CALCIUM (test code = POCCA) MMOL/L 1.12-1.32 POC LACTIC [id number] 09:57:00* Test Item Value Reference Range Interpretation Comments POC LACTIC ACID (test code = POCLAC) mmol/l 0.9-1.7 POC [id number] 09:57:00* Test Item Value Reference Range Interpretation Comments POC GLUCOSE (test code = POCGLU) MG/DL 70-110 POC ARTERIAL BLOOD [id number] 09:57:00* Test Item Value Reference Range Interpretation Comments POC ARTERIAL BLOOD GAS PH (test code = POCPHA) 7.494 7.35-7. 45 H POC ARTERIAL BLOOD GAS PCO2 (test code = UZDMSQ4E) 29.8 mmHg 35. 0-45 LL POC TCO2 ARTERIAL (test code = POCTCO2) 23.8 POC ARTERIAL BLOOD GAS PO2 (test code = HDSOJ0R) 547.2 mmHg 80-10 0.0 HH POC HCO3 ARTERIAL (test code = YHVOPY6F) 22.9 MMOL/L 22.0-26.0 N POC BASE EXCESS (test code = POCBEA) -0.2 MMOL/L -4.0-4.0 N POC O2 SATURATION (test code = POCO2S) 100.0 % 90-100 N [id number] 09:57:00* Test Item Value Reference Range Interpretation Comments SODIUM (test code = NA/ABG) 137 MEQ/L 134-147 N [id number] 09:57:00* Test Item Value Reference Range Interpretation Comments POTASSIUM (test code = K/ABG) 4.5 MEQ/L 3.4-5.0 N [id number] 09:57:00* Test Item Value Reference Range Interpretation Comments CHLORIDE (test code = CL/ABG) MEQ/L 100-108 CREATININE [id number] 09:57:00* Test Item Value Reference Range Interpretation Comments CREATININE ABG (test code = CREAABG) mg/dL 0.6-1.0 [id number] 09:57:00* Test Item Value Reference Range Interpretation Comments HEMOGLOBIN (test code = HGB/ABG) G/DL 11.0-15.0 [id number] 09:57:00* Test Item Value Reference Range Interpretation Comments HEMATOCRIT (test code = HCT/ABG) % 33.0-45.0 POC IONIZED [id number] 09:57:00* Test Item Value Reference Range Interpretation Comments POC IONIZED CALCIUM (test code = POCCA) 1.00 MMOL/L 1.12-1.32 L POC LACTIC [id number] 09:57:00* Test Item Value Reference Range Interpretation Comments POC LACTIC ACID (test code = POCLAC) mmol/l 0.9-1.7 POC [id number] 09:57:00* Test Item Value Reference Range Interpretation Comments POC GLUCOSE (test code = POCGLU) MG/DL 70-110 POC ARTERIAL BLOOD [id number] 09:57:00* Test Item Value Reference Range Interpretation Comments POC ARTERIAL BLOOD GAS PH (test code = POCPHA) 7.494 7.35-7. 45 H POC ARTERIAL BLOOD GAS PCO2 (test code = FCDGBS0V) 29.8 mmHg 35. 0-45 LL POC TCO2 ARTERIAL (test code = POCTCO2) 23.8 POC ARTERIAL BLOOD GAS PO2 (test code = SLRKO0Y) 547.2 mmHg 80-10 0.0 HH POC HCO3 ARTERIAL (test code = XEOUKA5A) 22.9 MMOL/L 22.0-26.0 N POC BASE EXCESS (test code = POCBEA) -0.2 MMOL/L -4.0-4.0 N POC O2 SATURATION (test code = POCO2S) 100.0 % 90-100 N [id number] 09:57:00* Test Item Value Reference Range Interpretation Comments SODIUM (test code = NA/ABG) 137 MEQ/L 134-147 N [id number] 09:57:00* Test Item Value Reference Range Interpretation Comments POTASSIUM (test code = K/ABG) 4.5 MEQ/L 3.4-5.0 N [id number] 09:57:00* Test Item Value Reference Range Interpretation Comments CHLORIDE (test code = CL/ABG) MEQ/L 100-108 CREATININE [id number] 09:57:00* Test Item Value Reference Range Interpretation Comments CREATININE ABG (test code = CREAABG) mg/dL 0.6-1.0 [id number] 09:57:00* Test Item Value Reference Range Interpretation Comments HEMOGLOBIN (test code = HGB/ABG) G/DL 11.0-15.0 [id number] 09:57:00* Test Item Value Reference Range Interpretation Comments HEMATOCRIT (test code = HCT/ABG) % 33.0-45.0 POC IONIZED [id number] 09:57:00* Test Item Value Reference Range Interpretation Comments POC IONIZED CALCIUM (test code = POCCA) 1.00 MMOL/L 1.12-1.32 L POC LACTIC [id number] 09:57:00* Test Item Value Reference Range Interpretation Comments POC LACTIC ACID (test code = POCLAC) mmol/l 0.9-1.7 POC [id number] 09:57:00* Test Item Value Reference Range Interpretation Comments POC GLUCOSE (test code = POCGLU) 134 MG/DL 70-110 H POC ARTERIAL BLOOD [id number] 09:57:00* Test Item Value Reference Range Interpretation Comments POC ARTERIAL BLOOD GAS PH (test code = POCPHA) 7.494 7.35-7. 45 H POC ARTERIAL BLOOD GAS PCO2 (test code = JGZKYU0P) 29.8 mmHg 35. 0-45 LL POC TCO2 ARTERIAL (test code = POCTCO2) 23.8 POC ARTERIAL BLOOD GAS PO2 (test code = TUYMH9N) 547.2 mmHg 80-10 0.0 HH POC HCO3 ARTERIAL (test code = XYLFXY0J) 22.9 MMOL/L 22.0-26.0 N POC BASE EXCESS (test code = POCBEA) -0.2 MMOL/L -4.0-4.0 N POC O2 SATURATION (test code = POCO2S) 100.0 % 90-100 N [id number] 09:57:00* Test Item Value Reference Range Interpretation Comments SODIUM (test code = NA/ABG) 137 MEQ/L 134-147 N [id number] 09:57:00* Test Item Value Reference Range Interpretation Comments POTASSIUM (test code = K/ABG) 4.5 MEQ/L 3.4-5.0 N [id number] 09:57:00* Test Item Value Reference Range Interpretation Comments CHLORIDE (test code = CL/ABG) MEQ/L 100-108 CREATININE [id number] 09:57:00* Test Item Value Reference Range Interpretation Comments CREATININE ABG (test code = CREAABG) mg/dL 0.6-1.0 [id number] 09:57:00* Test Item Value Reference Range Interpretation Comments HEMOGLOBIN (test code = HGB/ABG) G/DL 11.0-15.0 [id number] 09:57:00* Test Item Value Reference Range Interpretation Comments HEMATOCRIT (test code = HCT/ABG) % 33.0-45.0 POC IONIZED [id number] 09:57:00* Test Item Value Reference Range Interpretation Comments POC IONIZED CALCIUM (test code = POCCA) 1.00 MMOL/L 1.12-1.32 L POC LACTIC [id number] 09:57:00* Test Item Value Reference Range Interpretation Comments POC LACTIC ACID (test code = POCLAC) 1.8 mmol/l 0.9-1.7 H POC [id number] 09:57:00* Test Item Value Reference Range Interpretation Comments POC GLUCOSE (test code = POCGLU) 134 MG/DL 70-110 H POC ARTERIAL BLOOD [id number] 09:57:00* Test Item Value Reference Range Interpretation Comments POC ARTERIAL BLOOD GAS PH (test code = POCPHA) 7.494 7.35-7. 45 H POC ARTERIAL BLOOD GAS PCO2 (test code = HCFHDU8V) 29.8 mmHg 35. 0-45 LL POC TCO2 ARTERIAL (test code = POCTCO2) 23.8 POC ARTERIAL BLOOD GAS PO2 (test code = IUCUU1O) 547.2 mmHg 80-10 0.0 HH POC HCO3 ARTERIAL (test code = RTKMNW0Y) 22.9 MMOL/L 22.0-26.0 N POC BASE EXCESS (test code = POCBEA) -0.2 MMOL/L -4.0-4.0 N POC O2 SATURATION (test code = POCO2S) 100.0 % 90-100 N [id number] 09:57:00* Test Item Value Reference Range Interpretation Comments SODIUM (test code = NA/ABG) 137 MEQ/L 134-147 N [id number] 09:57:00* Test Item Value Reference Range Interpretation Comments POTASSIUM (test code = K/ABG) 4.5 MEQ/L 3.4-5.0 N [id number] 09:57:00* Test Item Value Reference Range Interpretation Comments CHLORIDE (test code = CL/ABG) MEQ/L 100-108 CREATININE [id number] 09:57:00* Test Item Value Reference Range Interpretation Comments CREATININE ABG (test code = CREAABG) mg/dL 0.6-1.0 [id number] 09:57:00* Test Item Value Reference Range Interpretation Comments HEMOGLOBIN (test code = HGB/ABG) G/DL 11.0-15.0 [id number] 09:57:00* Test Item Value Reference Range Interpretation Comments HEMATOCRIT (test code = HCT/ABG) 20 % 33.0-45.0 L POC IONIZED [id number] 09:57:00* Test Item Value Reference Range Interpretation Comments POC IONIZED CALCIUM (test code = POCCA) 1.00 MMOL/L 1.12-1.32 L POC LACTIC [id number] 09:57:00* Test Item Value Reference Range Interpretation Comments POC LACTIC ACID (test code = POCLAC) 1.8 mmol/l 0.9-1.7 H POC [id number] 09:57:00* Test Item Value Reference Range Interpretation Comments POC GLUCOSE (test code = POCGLU) 134 MG/DL 70-110 H POC ARTERIAL BLOOD [id number] 09:57:00* Test Item Value Reference Range Interpretation Comments POC ARTERIAL BLOOD GAS PH (test code = POCPHA) 7.494 7.35-7. 45 H POC ARTERIAL BLOOD GAS PCO2 (test code = FOTHWZ1D) 29.8 mmHg 35. 0-45 LL POC TCO2 ARTERIAL (test code = POCTCO2) 23.8 POC ARTERIAL BLOOD GAS PO2 (test code = ORIIL5W) 547.2 mmHg 80-10 0.0 HH POC HCO3 ARTERIAL (test code = ORGHSO0A) 22.9 MMOL/L 22.0-26.0 N POC BASE EXCESS (test code = POCBEA) -0.2 MMOL/L -4.0-4.0 N POC O2 SATURATION (test code = POCO2S) 100.0 % 90-100 N [id number] 09:57:00* Test Item Value Reference Range Interpretation Comments SODIUM (test code = NA/ABG) 137 MEQ/L 134-147 N [id number] 09:57:00* Test Item Value Reference Range Interpretation Comments POTASSIUM (test code = K/ABG) 4.5 MEQ/L 3.4-5.0 N [id number] 09:57:00* Test Item Value Reference Range Interpretation Comments CHLORIDE (test code = CL/ABG) MEQ/L 100-108 CREATININE [id number] 09:57:00* Test Item Value Reference Range Interpretation Comments CREATININE ABG (test code = CREAABG) mg/dL 0.6-1.0 [id number] 09:57:00* Test Item Value Reference Range Interpretation Comments HEMOGLOBIN (test code = HGB/ABG) 6.9 G/DL 11.0-15.0 L [id number] 09:57:00* Test Item Value Reference Range Interpretation Comments HEMATOCRIT (test code = HCT/ABG) 20 % 33.0-45.0 L POC IONIZED [id number] 09:57:00* Test Item Value Reference Range Interpretation Comments POC IONIZED CALCIUM (test code = POCCA) 1.00 MMOL/L 1.12-1.32 L POC LACTIC [id number] 09:57:00* Test Item Value Reference Range Interpretation Comments POC LACTIC ACID (test code = POCLAC) 1.8 mmol/l 0.9-1.7 H POC [id number] 09:57:00* Test Item Value Reference Range Interpretation Comments POC GLUCOSE (test code = POCGLU) 134 MG/DL 70-110 H POC ARTERIAL BLOOD [id number] 09:57:00* Test Item Value Reference Range Interpretation Comments POC ARTERIAL BLOOD GAS PH (test code = POCPHA) 7.494 7.35-7. 45 H POC ARTERIAL BLOOD GAS PCO2 (test code = UVPZNN0G) 29.8 mmHg 35. 0-45 LL POC TCO2 ARTERIAL (test code = POCTCO2) 23.8 POC ARTERIAL BLOOD GAS PO2 (test code = VCCIA1X) 547.2 mmHg 80-10 0.0 HH POC HCO3 ARTERIAL (test code = FVNUSS8R) 22.9 MMOL/L 22.0-26.0 N POC BASE EXCESS (test code = POCBEA) -0.2 MMOL/L -4.0-4.0 N POC O2 SATURATION (test code = POCO2S) 100.0 % 90-100 N [id number] 09:57:00* Test Item Value Reference Range Interpretation Comments SODIUM (test code = NA/ABG) 137 MEQ/L 134-147 N [id number] 09:57:00* Test Item Value Reference Range Interpretation Comments POTASSIUM (test code = K/ABG) 4.5 MEQ/L 3.4-5.0 N [id number] 09:57:00* Test Item Value Reference Range Interpretation Comments CHLORIDE (test code = CL/ABG) 100 MEQ/L 100-108 N CREATININE [id number] 09:57:00* Test Item Value Reference Range Interpretation Comments CREATININE ABG (test code = CREAABG) mg/dL 0.6-1.0 [id number] 09:57:00* Test Item Value Reference Range Interpretation Comments HEMOGLOBIN (test code = HGB/ABG) 6.9 G/DL 11.0-15.0 L [id number] 09:57:00* Test Item Value Reference Range Interpretation Comments HEMATOCRIT (test code = HCT/ABG) 20 % 33.0-45.0 L POC IONIZED [id number] 09:57:00* Test Item Value Reference Range Interpretation Comments POC IONIZED CALCIUM (test code = POCCA) 1.00 MMOL/L 1.12-1.32 L POC LACTIC [id number] 09:57:00* Test Item Value Reference Range Interpretation Comments POC LACTIC ACID (test code = POCLAC) 1.8 mmol/l 0.9-1.7 H POC [id number] 09:57:00* Test Item Value Reference Range Interpretation Comments POC GLUCOSE (test code = POCGLU) 134 MG/DL 70-110 H POC ARTERIAL BLOOD [id number] 09:57:00* Test Item Value Reference Range Interpretation Comments POC ARTERIAL BLOOD GAS PH (test code = POCPHA) 7.494 7.35-7. 45 H POC ARTERIAL BLOOD GAS PCO2 (test code = EWXPBI6G) 29.8 mmHg 35. 0-45 LL POC TCO2 ARTERIAL (test code = POCTCO2) 23.8 POC ARTERIAL BLOOD GAS PO2 (test code = ONFUV4J) 547.2 mmHg 80-10 0.0 HH POC HCO3 ARTERIAL (test code = KTFLVD8H) 22.9 MMOL/L 22.0-26.0 N POC BASE EXCESS (test code = POCBEA) -0.2 MMOL/L -4.0-4.0 N POC O2 SATURATION (test code = POCO2S) 100.0 % 90-100 N [id number] 09:57:00* Test Item Value Reference Range Interpretation Comments SODIUM (test code = NA/ABG) 137 MEQ/L 134-147 N [id number] 09:57:00* Test Item Value Reference Range Interpretation Comments POTASSIUM (test code = K/ABG) 4.5 MEQ/L 3.4-5.0 N [id number] 09:57:00* Test Item Value Reference Range Interpretation Comments CHLORIDE (test code = CL/ABG) 100 MEQ/L 100-108 N CREATININE [id number] 09:57:00* Test Item Value Reference Range Interpretation Comments CREATININE ABG (test code = CREAABG) 0.5 mg/dL 0.6-1.0 L [id number] 09:57:00* Test Item Value Reference Range Interpretation Comments HEMOGLOBIN (test code = HGB/ABG) 6.9 G/DL 11.0-15.0 L [id number] 09:57:00* Test Item Value Reference Range Interpretation Comments HEMATOCRIT (test code = HCT/ABG) 20 % 33.0-45.0 L POC IONIZED [id number] 09:57:00* Test Item Value Reference Range Interpretation Comments POC IONIZED CALCIUM (test code = POCCA) 1.00 MMOL/L 1.12-1.32 L POC LACTIC [id number] 09:57:00* Test Item Value Reference Range Interpretation Comments POC LACTIC ACID (test code = POCLAC) 1.8 mmol/l 0.9-1.7 H POC [id number] 09:57:00* Test Item Value Reference Range Interpretation Comments POC GLUCOSE (test code = POCGLU) 134 MG/DL 70-110 H [id number] 09:12:00* Test Item Value Reference Range Interpretation Comments ACT-ISTAT (test code = ACTI) 494 SEC 74-137 H Performed by certified cable machine operator at [facility] POC ARTERIAL BLOOD [id number] 08:59:00* Test Item Value Reference Range Interpretation Comments POC ARTERIAL BLOOD GAS PH (test code = POCPHA) 7.448 7.35-7. 45 N POC ARTERIAL BLOOD GAS PCO2 (test code = PRXMQX1A) 34.5 mmHg 35. 0-45 L POC TCO2 ARTERIAL (test code = POCTCO2) 25.0 POC ARTERIAL BLOOD GAS PO2 (test code = GOALC7B) 585.5 mmHg 80-10 0.0 HH POC HCO3 ARTERIAL (test code = SRQSCY8O) 23.9 MMOL/L 22.0-26.0 N POC BASE EXCESS (test code = POCBEA) 0.1 MMOL/L -4.0-4.0 N POC O2 SATURATION (test code = POCO2S) 100.0 % 90-100 N [id number] 08:59:00* Test Item Value Reference Range Interpretation Comments SODIUM (test code = NA/ABG) MEQ/L 134-147 [id number] 08:59:00* Test Item Value Reference Range Interpretation Comments POTASSIUM (test code = K/ABG) MEQ/L 3.4-5.0 [id number] 08:59:00* Test Item Value Reference Range Interpretation Comments CHLORIDE (test code = CL/ABG) MEQ/L 100-108 CREATININE [id number] 08:59:00* Test Item Value Reference Range Interpretation Comments CREATININE ABG (test code = CREAABG) mg/dL 0.6-1.0 [id number] 08:59:00* Test Item Value Reference Range Interpretation Comments HEMOGLOBIN (test code = HGB/ABG) G/DL 11.0-15.0 [id number] 08:59:00* Test Item Value Reference Range Interpretation Comments HEMATOCRIT (test code = HCT/ABG) % 33.0-45.0 POC IONIZED [id number] 08:59:00* Test Item Value Reference Range Interpretation Comments POC IONIZED CALCIUM (test code = POCCA) MMOL/L 1.12-1.32 POC LACTIC [id number] 08:59:00* Test Item Value Reference Range Interpretation Comments POC LACTIC ACID (test code = POCLAC) mmol/l 0.9-1.7 POC [id number] 08:59:00* Test Item Value Reference Range Interpretation Comments POC GLUCOSE (test code = POCGLU) MG/DL 70-110 POC ARTERIAL BLOOD [id number] 08:59:00* Test Item Value Reference Range Interpretation Comments POC ARTERIAL BLOOD GAS PH (test code = POCPHA) 7.448 7.35-7. 45 N POC ARTERIAL BLOOD GAS PCO2 (test code = SYUHNZ5U) 34.5 mmHg 35. 0-45 L POC TCO2 ARTERIAL (test code = POCTCO2) 25.0 POC ARTERIAL BLOOD GAS PO2 (test code = NZWJM8I) 585.5 mmHg 80-10 0.0 HH POC HCO3 ARTERIAL (test code = KWTDQA1P) 23.9 MMOL/L 22.0-26.0 N POC BASE EXCESS (test code = POCBEA) 0.1 MMOL/L -4.0-4.0 N POC O2 SATURATION (test code = POCO2S) 100.0 % 90-100 N [id number] 08:59:00* Test Item Value Reference Range Interpretation Comments SODIUM (test code = NA/ABG) 137 MEQ/L 134-147 N [id number] 08:59:00* Test Item Value Reference Range Interpretation Comments POTASSIUM (test code = K/ABG) MEQ/L 3.4-5.0 [id number] 08:59:00* Test Item Value Reference Range Interpretation Comments CHLORIDE (test code = CL/ABG) MEQ/L 100-108 CREATININE [id number] 08:59:00* Test Item Value Reference Range Interpretation Comments CREATININE ABG (test code = CREAABG) mg/dL 0.6-1.0 [id number] 08:59:00* Test Item Value Reference Range Interpretation Comments HEMOGLOBIN (test code = HGB/ABG) G/DL 11.0-15.0 [id number] 08:59:00* Test Item Value Reference Range Interpretation Comments HEMATOCRIT (test code = HCT/ABG) % 33.0-45.0 POC IONIZED [id number] 08:59:00* Test Item Value Reference Range Interpretation Comments POC IONIZED CALCIUM (test code = POCCA) MMOL/L 1.12-1.32 POC LACTIC [id number] 08:59:00* Test Item Value Reference Range Interpretation Comments POC LACTIC ACID (test code = POCLAC) mmol/l 0.9-1.7 POC [id number] 08:59:00* Test Item Value Reference Range Interpretation Comments POC GLUCOSE (test code = POCGLU) MG/DL 70-110 POC ARTERIAL BLOOD [id number] 08:59:00* Test Item Value Reference Range Interpretation Comments POC ARTERIAL BLOOD GAS PH (test code = POCPHA) 7.448 7.35-7. 45 N POC ARTERIAL BLOOD GAS PCO2 (test code = XAOAKO4Q) 34.5 mmHg 35. 0-45 L POC TCO2 ARTERIAL (test code = POCTCO2) 25.0 POC ARTERIAL BLOOD GAS PO2 (test code = OBYBT0K) 585.5 mmHg 80-10 0.0 HH POC HCO3 ARTERIAL (test code = HQYDJP1V) 23.9 MMOL/L 22.0-26.0 N POC BASE EXCESS (test code = POCBEA) 0.1 MMOL/L -4.0-4.0 N POC O2 SATURATION (test code = POCO2S) 100.0 % 90-100 N [id number] 08:59:00* Test Item Value Reference Range Interpretation Comments SODIUM (test code = NA/ABG) 137 MEQ/L 134-147 N [id number] 08:59:00* Test Item Value Reference Range Interpretation Comments POTASSIUM (test code = K/ABG) 3.7 MEQ/L 3.4-5.0 N [id number] 08:59:00* Test Item Value Reference Range Interpretation Comments CHLORIDE (test code = CL/ABG) MEQ/L 100-108 CREATININE [id number] 08:59:00* Test Item Value Reference Range Interpretation Comments CREATININE ABG (test code = CREAABG) mg/dL 0.6-1.0 [id number] 08:59:00* Test Item Value Reference Range Interpretation Comments HEMOGLOBIN (test code = HGB/ABG) G/DL 11.0-15.0 [id number] 08:59:00* Test Item Value Reference Range Interpretation Comments HEMATOCRIT (test code = HCT/ABG) % 33.0-45.0 POC IONIZED [id number] 08:59:00* Test Item Value Reference Range Interpretation Comments POC IONIZED CALCIUM (test code = POCCA) MMOL/L 1.12-1.32 POC LACTIC [id number] 08:59:00* Test Item Value Reference Range Interpretation Comments POC LACTIC ACID (test code = POCLAC) mmol/l 0.9-1.7 POC [id number] 08:59:00* Test Item Value Reference Range Interpretation Comments POC GLUCOSE (test code = POCGLU) MG/DL 70-110 POC ARTERIAL BLOOD [id number] 08:59:00* Test Item Value Reference Range Interpretation Comments POC ARTERIAL BLOOD GAS PH (test code = POCPHA) 7.448 7.35-7. 45 N POC ARTERIAL BLOOD GAS PCO2 (test code = SRCWDX0J) 34.5 mmHg 35. 0-45 L POC TCO2 ARTERIAL (test code = POCTCO2) 25.0 POC ARTERIAL BLOOD GAS PO2 (test code = YXQXU1P) 585.5 mmHg 80-10 0.0 HH POC HCO3 ARTERIAL (test code = KPGQLC8O) 23.9 MMOL/L 22.0-26.0 N POC BASE EXCESS (test code = POCBEA) 0.1 MMOL/L -4.0-4.0 N POC O2 SATURATION (test code = POCO2S) 100.0 % 90-100 N [id number] 08:59:00* Test Item Value Reference Range Interpretation Comments SODIUM (test code = NA/ABG) 137 MEQ/L 134-147 N [id number] 08:59:00* Test Item Value Reference Range Interpretation Comments POTASSIUM (test code = K/ABG) 3.7 MEQ/L 3.4-5.0 N [id number] 08:59:00* Test Item Value Reference Range Interpretation Comments CHLORIDE (test code = CL/ABG) MEQ/L 100-108 CREATININE [id number] 08:59:00* Test Item Value Reference Range Interpretation Comments CREATININE ABG (test code = CREAABG) mg/dL 0.6-1.0 [id number] 08:59:00* Test Item Value Reference Range Interpretation Comments HEMOGLOBIN (test code = HGB/ABG) G/DL 11.0-15.0 [id number] 08:59:00* Test Item Value Reference Range Interpretation Comments HEMATOCRIT (test code = HCT/ABG) % 33.0-45.0 POC IONIZED [id number] 08:59:00* Test Item Value Reference Range Interpretation Comments POC IONIZED CALCIUM (test code = POCCA) 1.16 MMOL/L 1.12-1.32 N POC LACTIC [id number] 08:59:00* Test Item Value Reference Range Interpretation Comments POC LACTIC ACID (test code = POCLAC) mmol/l 0.9-1.7 POC [id number] 08:59:00* Test Item Value Reference Range Interpretation Comments POC GLUCOSE (test code = POCGLU) MG/DL 70-110 POC ARTERIAL BLOOD [id number] 08:59:00* Test Item Value Reference Range Interpretation Comments POC ARTERIAL BLOOD GAS PH (test code = POCPHA) 7.448 7.35-7. 45 N POC ARTERIAL BLOOD GAS PCO2 (test code = GQRYGT6W) 34.5 mmHg 35. 0-45 L POC TCO2 ARTERIAL (test code = POCTCO2) 25.0 POC ARTERIAL BLOOD GAS PO2 (test code = ZRSWF8Z) 585.5 mmHg 80-10 0.0 HH POC HCO3 ARTERIAL (test code = VSTAEV8V) 23.9 MMOL/L 22.0-26.0 N POC BASE EXCESS (test code = POCBEA) 0.1 MMOL/L -4.0-4.0 N POC O2 SATURATION (test code = POCO2S) 100.0 % 90-100 N [id number] 08:59:00* Test Item Value Reference Range Interpretation Comments SODIUM (test code = NA/ABG) 137 MEQ/L 134-147 N [id number] 08:59:00* Test Item Value Reference Range Interpretation Comments POTASSIUM (test code = K/ABG) 3.7 MEQ/L 3.4-5.0 N [id number] 08:59:00* Test Item Value Reference Range Interpretation Comments CHLORIDE (test code = CL/ABG) MEQ/L 100-108 CREATININE [id number] 08:59:00* Test Item Value Reference Range Interpretation Comments CREATININE ABG (test code = CREAABG) mg/dL 0.6-1.0 [id number] 08:59:00* Test Item Value Reference Range Interpretation Comments HEMOGLOBIN (test code = HGB/ABG) G/DL 11.0-15.0 [id number] 08:59:00* Test Item Value Reference Range Interpretation Comments HEMATOCRIT (test code = HCT/ABG) % 33.0-45.0 POC IONIZED [id number] 08:59:00* Test Item Value Reference Range Interpretation Comments POC IONIZED CALCIUM (test code = POCCA) 1.16 MMOL/L 1.12-1.32 N POC LACTIC [id number] 08:59:00* Test Item Value Reference Range Interpretation Comments POC LACTIC ACID (test code = POCLAC) mmol/l 0.9-1.7 POC [id number] 08:59:00* Test Item Value Reference Range Interpretation Comments POC GLUCOSE (test code = POCGLU) 93 MG/DL 70-110 N POC ARTERIAL BLOOD [id number] 08:59:00* Test Item Value Reference Range Interpretation Comments POC ARTERIAL BLOOD GAS PH (test code = POCPHA) 7.448 7.35-7. 45 N POC ARTERIAL BLOOD GAS PCO2 (test code = VXXCRW2S) 34.5 mmHg 35. 0-45 L POC TCO2 ARTERIAL (test code = POCTCO2) 25.0 POC ARTERIAL BLOOD GAS PO2 (test code = LRVPN5I) 585.5 mmHg 80-10 0.0 HH POC HCO3 ARTERIAL (test code = MJHLXD4M) 23.9 MMOL/L 22.0-26.0 N POC BASE EXCESS (test code = POCBEA) 0.1 MMOL/L -4.0-4.0 N POC O2 SATURATION (test code = POCO2S) 100.0 % 90-100 N [id number] 08:59:00* Test Item Value Reference Range Interpretation Comments SODIUM (test code = NA/ABG) 137 MEQ/L 134-147 N [id number] 08:59:00* Test Item Value Reference Range Interpretation Comments POTASSIUM (test code = K/ABG) 3.7 MEQ/L 3.4-5.0 N [id number] 08:59:00* Test Item Value Reference Range Interpretation Comments CHLORIDE (test code = CL/ABG) MEQ/L 100-108 CREATININE [id number] 08:59:00* Test Item Value Reference Range Interpretation Comments CREATININE ABG (test code = CREAABG) mg/dL 0.6-1.0 [id number] 08:59:00* Test Item Value Reference Range Interpretation Comments HEMOGLOBIN (test code = HGB/ABG) G/DL 11.0-15.0 [id number] 08:59:00* Test Item Value Reference Range Interpretation Comments HEMATOCRIT (test code = HCT/ABG) % 33.0-45.0 POC IONIZED [id number] 08:59:00* Test Item Value Reference Range Interpretation Comments POC IONIZED CALCIUM (test code = POCCA) 1.16 MMOL/L 1.12-1.32 N POC LACTIC [id number] 08:59:00* Test Item Value Reference Range Interpretation Comments POC LACTIC ACID (test code = POCLAC) 1.1 mmol/l 0.9-1.7 N POC [id number] 08:59:00* Test Item Value Reference Range Interpretation Comments POC GLUCOSE (test code = POCGLU) 93 MG/DL 70-110 N POC ARTERIAL BLOOD [id number] 08:59:00* Test Item Value Reference Range Interpretation Comments POC ARTERIAL BLOOD GAS PH (test code = POCPHA) 7.448 7.35-7. 45 N POC ARTERIAL BLOOD GAS PCO2 (test code = ZXBYHZ1O) 34.5 mmHg 35. 0-45 L POC TCO2 ARTERIAL (test code = POCTCO2) 25.0 POC ARTERIAL BLOOD GAS PO2 (test code = SBIUQ5P) 585.5 mmHg 80-10 0.0 HH POC HCO3 ARTERIAL (test code = ILWAPE4S) 23.9 MMOL/L 22.0-26.0 N POC BASE EXCESS (test code = POCBEA) 0.1 MMOL/L -4.0-4.0 N POC O2 SATURATION (test code = POCO2S) 100.0 % 90-100 N [id number] 08:59:00* Test Item Value Reference Range Interpretation Comments SODIUM (test code = NA/ABG) 137 MEQ/L 134-147 N [id number] 08:59:00* Test Item Value Reference Range Interpretation Comments POTASSIUM (test code = K/ABG) 3.7 MEQ/L 3.4-5.0 N [id number] 08:59:00* Test Item Value Reference Range Interpretation Comments CHLORIDE (test code = CL/ABG) MEQ/L 100-108 CREATININE [id number] 08:59:00* Test Item Value Reference Range Interpretation Comments CREATININE ABG (test code = CREAABG) mg/dL 0.6-1.0 [id number] 08:59:00* Test Item Value Reference Range Interpretation Comments HEMOGLOBIN (test code = HGB/ABG) G/DL 11.0-15.0 [id number] 08:59:00* Test Item Value Reference Range Interpretation Comments HEMATOCRIT (test code = HCT/ABG) 28 % 33.0-45.0 L POC IONIZED [id number] 08:59:00* Test Item Value Reference Range Interpretation Comments POC IONIZED CALCIUM (test code = POCCA) 1.16 MMOL/L 1.12-1.32 N POC LACTIC [id number] 08:59:00* Test Item Value Reference Range Interpretation Comments POC LACTIC ACID (test code = POCLAC) 1.1 mmol/l 0.9-1.7 N POC [id number] 08:59:00* Test Item Value Reference Range Interpretation Comments POC GLUCOSE (test code = POCGLU) 93 MG/DL 70-110 N POC ARTERIAL BLOOD [id number] 08:59:00* Test Item Value Reference Range Interpretation Comments POC ARTERIAL BLOOD GAS PH (test code = POCPHA) 7.448 7.35-7. 45 N POC ARTERIAL BLOOD GAS PCO2 (test code = EOBNSG2H) 34.5 mmHg 35. 0-45 L POC TCO2 ARTERIAL (test code = POCTCO2) 25.0 POC ARTERIAL BLOOD GAS PO2 (test code = ANXAS4T) 585.5 mmHg 80-10 0.0 HH POC HCO3 ARTERIAL (test code = RBGAMQ4N) 23.9 MMOL/L 22.0-26.0 N POC BASE EXCESS (test code = POCBEA) 0.1 MMOL/L -4.0-4.0 N POC O2 SATURATION (test code = POCO2S) 100.0 % 90-100 N [id number] 08:59:00* Test Item Value Reference Range Interpretation Comments SODIUM (test code = NA/ABG) 137 MEQ/L 134-147 N [id number] 08:59:00* Test Item Value Reference Range Interpretation Comments POTASSIUM (test code = K/ABG) 3.7 MEQ/L 3.4-5.0 N [id number] 08:59:00* Test Item Value Reference Range Interpretation Comments CHLORIDE (test code = CL/ABG) MEQ/L 100-108 CREATININE [id number] 08:59:00* Test Item Value Reference Range Interpretation Comments CREATININE ABG (test code = CREAABG) mg/dL 0.6-1.0 [id number] 08:59:00* Test Item Value Reference Range Interpretation Comments HEMOGLOBIN (test code = HGB/ABG) 9.5 G/DL 11.0-15.0 L [id number] 08:59:00* Test Item Value Reference Range Interpretation Comments HEMATOCRIT (test code = HCT/ABG) 28 % 33.0-45.0 L POC IONIZED [id number] 08:59:00* Test Item Value Reference Range Interpretation Comments POC IONIZED CALCIUM (test code = POCCA) 1.16 MMOL/L 1.12-1.32 N POC LACTIC [id number] 08:59:00* Test Item Value Reference Range Interpretation Comments POC LACTIC ACID (test code = POCLAC) 1.1 mmol/l 0.9-1.7 N POC [id number] 08:59:00* Test Item Value Reference Range Interpretation Comments POC GLUCOSE (test code = POCGLU) 93 MG/DL 70-110 N POC ARTERIAL BLOOD [id number] 08:59:00* Test Item Value Reference Range Interpretation Comments POC ARTERIAL BLOOD GAS PH (test code = POCPHA) 7.448 7.35-7. 45 N POC ARTERIAL BLOOD GAS PCO2 (test code = KJKUNH7R) 34.5 mmHg 35. 0-45 L POC TCO2 ARTERIAL (test code = POCTCO2) 25.0 POC ARTERIAL BLOOD GAS PO2 (test code = ZSKBF5L) 585.5 mmHg 80-10 0.0 HH POC HCO3 ARTERIAL (test code = MLVAFA8K) 23.9 MMOL/L 22.0-26.0 N POC BASE EXCESS (test code = POCBEA) 0.1 MMOL/L -4.0-4.0 N POC O2 SATURATION (test code = POCO2S) 100.0 % 90-100 N [id number] 08:59:00* Test Item Value Reference Range Interpretation Comments SODIUM (test code = NA/ABG) 137 MEQ/L 134-147 N [id number] 08:59:00* Test Item Value Reference Range Interpretation Comments POTASSIUM (test code = K/ABG) 3.7 MEQ/L 3.4-5.0 N [id number] 08:59:00* Test Item Value Reference Range Interpretation Comments CHLORIDE (test code = CL/ABG) 101 MEQ/L 100-108 N CREATININE [id number] 08:59:00* Test Item Value Reference Range Interpretation Comments CREATININE ABG (test code = CREAABG) mg/dL 0.6-1.0 [id number] 08:59:00* Test Item Value Reference Range Interpretation Comments HEMOGLOBIN (test code = HGB/ABG) 9.5 G/DL 11.0-15.0 L [id number] 08:59:00* Test Item Value Reference Range Interpretation Comments HEMATOCRIT (test code = HCT/ABG) 28 % 33.0-45.0 L POC IONIZED [id number] 08:59:00* Test Item Value Reference Range Interpretation Comments POC IONIZED CALCIUM (test code = POCCA) 1.16 MMOL/L 1.12-1.32 N POC LACTIC [id number] 08:59:00* Test Item Value Reference Range Interpretation Comments POC LACTIC ACID (test code = POCLAC) 1.1 mmol/l 0.9-1.7 N POC [id number] 08:59:00* Test Item Value Reference Range Interpretation Comments POC GLUCOSE (test code = POCGLU) 93 MG/DL 70-110 N POC ARTERIAL BLOOD [id number] 08:59:00* Test Item Value Reference Range Interpretation Comments POC ARTERIAL BLOOD GAS PH (test code = POCPHA) 7.448 7.35-7. 45 N POC ARTERIAL BLOOD GAS PCO2 (test code = FJCPUN6W) 34.5 mmHg 35. 0-45 L POC TCO2 ARTERIAL (test code = POCTCO2) 25.0 POC ARTERIAL BLOOD GAS PO2 (test code = IRLIK4N) 585.5 mmHg 80-10 0.0 HH POC HCO3 ARTERIAL (test code = KNJMST0S) 23.9 MMOL/L 22.0-26.0 N POC BASE EXCESS (test code = POCBEA) 0.1 MMOL/L -4.0-4.0 N POC O2 SATURATION (test code = POCO2S) 100.0 % 90-100 N [id number] 08:59:00* Test Item Value Reference Range Interpretation Comments SODIUM (test code = NA/ABG) 137 MEQ/L 134-147 N [id number] 08:59:00* Test Item Value Reference Range Interpretation Comments POTASSIUM (test code = K/ABG) 3.7 MEQ/L 3.4-5.0 N [id number] 08:59:00* Test Item Value Reference Range Interpretation Comments CHLORIDE (test code = CL/ABG) 101 MEQ/L 100-108 N CREATININE [id number] 08:59:00* Test Item Value Reference Range Interpretation Comments CREATININE ABG (test code = CREAABG) 0.4 mg/dL 0.6-1.0 L [id number] 08:59:00* Test Item Value Reference Range Interpretation Comments HEMOGLOBIN (test code = HGB/ABG) 9.5 G/DL 11.0-15.0 L [id number] 08:59:00* Test Item Value Reference Range Interpretation Comments HEMATOCRIT (test code = HCT/ABG) 28 % 33.0-45.0 L POC IONIZED [id number] 08:59:00* Test Item Value Reference Range Interpretation Comments POC IONIZED CALCIUM (test code = POCCA) 1.16 MMOL/L 1.12-1.32 N POC LACTIC [id number] 08:59:00* Test Item Value Reference Range Interpretation Comments POC LACTIC ACID (test code = POCLAC) 1.1 mmol/l 0.9-1.7 N POC [id number] 08:59:00* Test Item Value Reference Range Interpretation Comments POC GLUCOSE (test code = POCGLU) 93 MG/DL 70-110 N [id number] 07:22:00* Test Item Value Reference Range Interpretation Comments ACT-ISTAT (test code = ACTI) 136 SEC 74-137 N Performed by certified cable machine operator at [facility] POC ARTERIAL BLOOD [id number] 07:13:00* Test Item Value Reference Range Interpretation Comments POC ARTERIAL BLOOD GAS PH (test code = POCPHA) 7.502 7.35-7. 45 HH POC ARTERIAL BLOOD GAS PCO2 (test code = VPQWCM5H) 33.9 mmHg 35. 0-45 L POC TCO2 ARTERIAL (test code = POCTCO2) 27.5 POC ARTERIAL BLOOD GAS PO2 (test code = WAFPW6D) 64.4 mmHg 80-10 0.0 L POC HCO3 ARTERIAL (test code = CKFUJS4K) 26.5 MMOL/L 22.0-26.0 H POC BASE EXCESS (test code = POCBEA) 3.4 MMOL/L -4.0-4.0 N POC O2 SATURATION (test code = POCO2S) 94.2 % 90-100 N [id number] 07:13:00* Test Item Value Reference Range Interpretation Comments SODIUM (test code = NA/ABG) MEQ/L 134-147 [id number] 07:13:00* Test Item Value Reference Range Interpretation Comments POTASSIUM (test code = K/ABG) MEQ/L 3.4-5.0 [id number] 07:13:00* Test Item Value Reference Range Interpretation Comments CHLORIDE (test code = CL/ABG) MEQ/L 100-108 CREATININE [id number] 07:13:00* Test Item Value Reference Range Interpretation Comments CREATININE ABG (test code = CREAABG) mg/dL 0.6-1.0 [id number] 07:13:00* Test Item Value Reference Range Interpretation Comments HEMOGLOBIN (test code = HGB/ABG) G/DL 11.0-15.0 [id number] 07:13:00* Test Item Value Reference Range Interpretation Comments HEMATOCRIT (test code = HCT/ABG) % 33.0-45.0 POC IONIZED [id number] 07:13:00* Test Item Value Reference Range Interpretation Comments POC IONIZED CALCIUM (test code = POCCA) MMOL/L 1.12-1.32 POC LACTIC [id number] 07:13:00* Test Item Value Reference Range Interpretation Comments POC LACTIC ACID (test code = POCLAC) mmol/l 0.9-1.7 POC [id number] 07:13:00* Test Item Value Reference Range Interpretation Comments POC GLUCOSE (test code = POCGLU) MG/DL 70-110 POC ARTERIAL BLOOD [id number] 07:13:00* Test Item Value Reference Range Interpretation Comments POC ARTERIAL BLOOD GAS PH (test code = POCPHA) 7.502 7.35-7. 45 HH POC ARTERIAL BLOOD GAS PCO2 (test code = SPNZIY0I) 33.9 mmHg 35. 0-45 L POC TCO2 ARTERIAL (test code = POCTCO2) 27.5 POC ARTERIAL BLOOD GAS PO2 (test code = ICNKR3S) 64.4 mmHg 80-10 0.0 L POC HCO3 ARTERIAL (test code = UWFCDG6S) 26.5 MMOL/L 22.0-26.0 H POC BASE EXCESS (test code = POCBEA) 3.4 MMOL/L -4.0-4.0 N POC O2 SATURATION (test code = POCO2S) 94.2 % 90-100 N [id number] 07:13:00* Test Item Value Reference Range Interpretation Comments SODIUM (test code = NA/ABG) 138 MEQ/L 134-147 N [id number] 07:13:00* Test Item Value Reference Range Interpretation Comments POTASSIUM (test code = K/ABG) MEQ/L 3.4-5.0 [id number] 07:13:00* Test Item Value Reference Range Interpretation Comments CHLORIDE (test code = CL/ABG) MEQ/L 100-108 CREATININE [id number] 07:13:00* Test Item Value Reference Range Interpretation Comments CREATININE ABG (test code = CREAABG) mg/dL 0.6-1.0 [id number] 07:13:00* Test Item Value Reference Range Interpretation Comments HEMOGLOBIN (test code = HGB/ABG) G/DL 11.0-15.0 [id number] 07:13:00* Test Item Value Reference Range Interpretation Comments HEMATOCRIT (test code = HCT/ABG) % 33.0-45.0 POC IONIZED [id number] 07:13:00* Test Item Value Reference Range Interpretation Comments POC IONIZED CALCIUM (test code = POCCA) MMOL/L 1.12-1.32 POC LACTIC [id number] 07:13:00* Test Item Value Reference Range Interpretation Comments POC LACTIC ACID (test code = POCLAC) mmol/l 0.9-1.7 POC [id number] 07:13:00* Test Item Value Reference Range Interpretation Comments POC GLUCOSE (test code = POCGLU) MG/DL 70-110 POC ARTERIAL BLOOD [id number] 07:13:00* Test Item Value Reference Range Interpretation Comments POC ARTERIAL BLOOD GAS PH (test code = POCPHA) 7.502 7.35-7. 45 HH POC ARTERIAL BLOOD GAS PCO2 (test code = SMVIXU4V) 33.9 mmHg 35. 0-45 L POC TCO2 ARTERIAL (test code = POCTCO2) 27.5 POC ARTERIAL BLOOD GAS PO2 (test code = XXFZL4U) 64.4 mmHg 80-10 0.0 L POC HCO3 ARTERIAL (test code = PMWSXV3N) 26.5 MMOL/L 22.0-26.0 H POC BASE EXCESS (test code = POCBEA) 3.4 MMOL/L -4.0-4.0 N POC O2 SATURATION (test code = POCO2S) 94.2 % 90-100 N [id number] 07:13:00* Test Item Value Reference Range Interpretation Comments SODIUM (test code = NA/ABG) 138 MEQ/L 134-147 N [id number] 07:13:00* Test Item Value Reference Range Interpretation Comments POTASSIUM (test code = K/ABG) 3.8 MEQ/L 3.4-5.0 N [id number] 07:13:00* Test Item Value Reference Range Interpretation Comments CHLORIDE (test code = CL/ABG) MEQ/L 100-108 CREATININE [id number] 07:13:00* Test Item Value Reference Range Interpretation Comments CREATININE ABG (test code = CREAABG) mg/dL 0.6-1.0 [id number] 07:13:00* Test Item Value Reference Range Interpretation Comments HEMOGLOBIN (test code = HGB/ABG) G/DL 11.0-15.0 [id number] 07:13:00* Test Item Value Reference Range Interpretation Comments HEMATOCRIT (test code = HCT/ABG) % 33.0-45.0 POC IONIZED [id number] 07:13:00* Test Item Value Reference Range Interpretation Comments POC IONIZED CALCIUM (test code = POCCA) MMOL/L 1.12-1.32 POC LACTIC [id number] 07:13:00* Test Item Value Reference Range Interpretation Comments POC LACTIC ACID (test code = POCLAC) mmol/l 0.9-1.7 POC [id number] 07:13:00* Test Item Value Reference Range Interpretation Comments POC GLUCOSE (test code = POCGLU) MG/DL 70-110 POC ARTERIAL BLOOD [id number] 07:13:00* Test Item Value Reference Range Interpretation Comments POC ARTERIAL BLOOD GAS PH (test code = POCPHA) 7.502 7.35-7. 45 HH POC ARTERIAL BLOOD GAS PCO2 (test code = XTOARF4S) 33.9 mmHg 35. 0-45 L POC TCO2 ARTERIAL (test code = POCTCO2) 27.5 POC ARTERIAL BLOOD GAS PO2 (test code = CTJRU4U) 64.4 mmHg 80-10 0.0 L POC HCO3 ARTERIAL (test code = BIKVZK9R) 26.5 MMOL/L 22.0-26.0 H POC BASE EXCESS (test code = POCBEA) 3.4 MMOL/L -4.0-4.0 N POC O2 SATURATION (test code = POCO2S) 94.2 % 90-100 N [id number] 07:13:00* Test Item Value Reference Range Interpretation Comments SODIUM (test code = NA/ABG) 138 MEQ/L 134-147 N [id number] 07:13:00* Test Item Value Reference Range Interpretation Comments POTASSIUM (test code = K/ABG) 3.8 MEQ/L 3.4-5.0 N [id number] 07:13:00* Test Item Value Reference Range Interpretation Comments CHLORIDE (test code = CL/ABG) MEQ/L 100-108 CREATININE [id number] 07:13:00* Test Item Value Reference Range Interpretation Comments CREATININE ABG (test code = CREAABG) mg/dL 0.6-1.0 [id number] 07:13:00* Test Item Value Reference Range Interpretation Comments HEMOGLOBIN (test code = HGB/ABG) G/DL 11.0-15.0 [id number] 07:13:00* Test Item Value Reference Range Interpretation Comments HEMATOCRIT (test code = HCT/ABG) % 33.0-45.0 POC IONIZED [id number] 07:13:00* Test Item Value Reference Range Interpretation Comments POC IONIZED CALCIUM (test code = POCCA) 1.18 MMOL/L 1.12-1.32 N POC LACTIC [id number] 07:13:00* Test Item Value Reference Range Interpretation Comments POC LACTIC ACID (test code = POCLAC) mmol/l 0.9-1.7 POC [id number] 07:13:00* Test Item Value Reference Range Interpretation Comments POC GLUCOSE (test code = POCGLU) MG/DL 70-110 POC ARTERIAL BLOOD [id number] 07:13:00* Test Item Value Reference Range Interpretation Comments POC ARTERIAL BLOOD GAS PH (test code = POCPHA) 7.502 7.35-7. 45 HH POC ARTERIAL BLOOD GAS PCO2 (test code = KLWZMC6M) 33.9 mmHg 35. 0-45 L POC TCO2 ARTERIAL (test code = POCTCO2) 27.5 POC ARTERIAL BLOOD GAS PO2 (test code = EVFCN3M) 64.4 mmHg 80-10 0.0 L POC HCO3 ARTERIAL (test code = VEZAED9W) 26.5 MMOL/L 22.0-26.0 H POC BASE EXCESS (test code = POCBEA) 3.4 MMOL/L -4.0-4.0 N POC O2 SATURATION (test code = POCO2S) 94.2 % 90-100 N [id number] 07:13:00* Test Item Value Reference Range Interpretation Comments SODIUM (test code = NA/ABG) 138 MEQ/L 134-147 N [id number] 07:13:00* Test Item Value Reference Range Interpretation Comments POTASSIUM (test code = K/ABG) 3.8 MEQ/L 3.4-5.0 N [id number] 07:13:00* Test Item Value Reference Range Interpretation Comments CHLORIDE (test code = CL/ABG) MEQ/L 100-108 CREATININE [id number] 07:13:00* Test Item Value Reference Range Interpretation Comments CREATININE ABG (test code = CREAABG) mg/dL 0.6-1.0 [id number] 07:13:00* Test Item Value Reference Range Interpretation Comments HEMOGLOBIN (test code = HGB/ABG) G/DL 11.0-15.0 [id number] 07:13:00* Test Item Value Reference Range Interpretation Comments HEMATOCRIT (test code = HCT/ABG) % 33.0-45.0 POC IONIZED [id number] 07:13:00* Test Item Value Reference Range Interpretation Comments POC IONIZED CALCIUM (test code = POCCA) 1.18 MMOL/L 1.12-1.32 N POC LACTIC [id number] 07:13:00* Test Item Value Reference Range Interpretation Comments POC LACTIC ACID (test code = POCLAC) mmol/l 0.9-1.7 POC [id number] 07:13:00* Test Item Value Reference Range Interpretation Comments POC GLUCOSE (test code = POCGLU) 114 MG/DL 70-110 H POC ARTERIAL BLOOD [id number] 07:13:00* Test Item Value Reference Range Interpretation Comments POC ARTERIAL BLOOD GAS PH (test code = POCPHA) 7.502 7.35-7. 45 HH POC ARTERIAL BLOOD GAS PCO2 (test code = QWPRJZ8C) 33.9 mmHg 35. 0-45 L POC TCO2 ARTERIAL (test code = POCTCO2) 27.5 POC ARTERIAL BLOOD GAS PO2 (test code = TYJQM8T) 64.4 mmHg 80-10 0.0 L POC HCO3 ARTERIAL (test code = GZAWHH9W) 26.5 MMOL/L 22.0-26.0 H POC BASE EXCESS (test code = POCBEA) 3.4 MMOL/L -4.0-4.0 N POC O2 SATURATION (test code = POCO2S) 94.2 % 90-100 N [id number] 07:13:00* Test Item Value Reference Range Interpretation Comments SODIUM (test code = NA/ABG) 138 MEQ/L 134-147 N [id number] 07:13:00* Test Item Value Reference Range Interpretation Comments POTASSIUM (test code = K/ABG) 3.8 MEQ/L 3.4-5.0 N [id number] 07:13:00* Test Item Value Reference Range Interpretation Comments CHLORIDE (test code = CL/ABG) MEQ/L 100-108 CREATININE [id number] 07:13:00* Test Item Value Reference Range Interpretation Comments CREATININE ABG (test code = CREAABG) mg/dL 0.6-1.0 [id number] 07:13:00* Test Item Value Reference Range Interpretation Comments HEMOGLOBIN (test code = HGB/ABG) G/DL 11.0-15.0 [id number] 07:13:00* Test Item Value Reference Range Interpretation Comments HEMATOCRIT (test code = HCT/ABG) % 33.0-45.0 POC IONIZED [id number] 07:13:00* Test Item Value Reference Range Interpretation Comments POC IONIZED CALCIUM (test code = POCCA) 1.18 MMOL/L 1.12-1.32 N POC LACTIC [id number] 07:13:00* Test Item Value Reference Range Interpretation Comments POC LACTIC ACID (test code = POCLAC) 0.9 mmol/l 0.9-1.7 N POC [id number] 07:13:00* Test Item Value Reference Range Interpretation Comments POC GLUCOSE (test code = POCGLU) 114 MG/DL 70-110 H POC ARTERIAL BLOOD [id number] 07:13:00* Test Item Value Reference Range Interpretation Comments POC ARTERIAL BLOOD GAS PH (test code = POCPHA) 7.502 7.35-7. 45 HH POC ARTERIAL BLOOD GAS PCO2 (test code = SLSGTF6A) 33.9 mmHg 35. 0-45 L POC TCO2 ARTERIAL (test code = POCTCO2) 27.5 POC ARTERIAL BLOOD GAS PO2 (test code = YRUZJ3E) 64.4 mmHg 80-10 0.0 L POC HCO3 ARTERIAL (test code = HZMGZE9S) 26.5 MMOL/L 22.0-26.0 H POC BASE EXCESS (test code = POCBEA) 3.4 MMOL/L -4.0-4.0 N POC O2 SATURATION (test code = POCO2S) 94.2 % 90-100 N [id number] 07:13:00* Test Item Value Reference Range Interpretation Comments SODIUM (test code = NA/ABG) 138 MEQ/L 134-147 N [id number] 07:13:00* Test Item Value Reference Range Interpretation Comments POTASSIUM (test code = K/ABG) 3.8 MEQ/L 3.4-5.0 N [id number] 07:13:00* Test Item Value Reference Range Interpretation Comments CHLORIDE (test code = CL/ABG) MEQ/L 100-108 CREATININE [id number] 07:13:00* Test Item Value Reference Range Interpretation Comments CREATININE ABG (test code = CREAABG) mg/dL 0.6-1.0 [id number] 07:13:00* Test Item Value Reference Range Interpretation Comments HEMOGLOBIN (test code = HGB/ABG) G/DL 11.0-15.0 [id number] 07:13:00* Test Item Value Reference Range Interpretation Comments HEMATOCRIT (test code = HCT/ABG) 29 % 33.0-45.0 L POC IONIZED [id number] 07:13:00* Test Item Value Reference Range Interpretation Comments POC IONIZED CALCIUM (test code = POCCA) 1.18 MMOL/L 1.12-1.32 N POC LACTIC [id number] 07:13:00* Test Item Value Reference Range Interpretation Comments POC LACTIC ACID (test code = POCLAC) 0.9 mmol/l 0.9-1.7 N POC [id number] 07:13:00* Test Item Value Reference Range Interpretation Comments POC GLUCOSE (test code = POCGLU) 114 MG/DL 70-110 H POC ARTERIAL BLOOD [id number] 07:13:00* Test Item Value Reference Range Interpretation Comments POC ARTERIAL BLOOD GAS PH (test code = POCPHA) 7.502 7.35-7. 45 HH POC ARTERIAL BLOOD GAS PCO2 (test code = MQCEUX8Q) 33.9 mmHg 35. 0-45 L POC TCO2 ARTERIAL (test code = POCTCO2) 27.5 POC ARTERIAL BLOOD GAS PO2 (test code = WGLKS5T) 64.4 mmHg 80-10 0.0 L POC HCO3 ARTERIAL (test code = JCWLBV8Z) 26.5 MMOL/L 22.0-26.0 H POC BASE EXCESS (test code = POCBEA) 3.4 MMOL/L -4.0-4.0 N POC O2 SATURATION (test code = POCO2S) 94.2 % 90-100 N [id number] 07:13:00* Test Item Value Reference Range Interpretation Comments SODIUM (test code = NA/ABG) 138 MEQ/L 134-147 N [id number] 07:13:00* Test Item Value Reference Range Interpretation Comments POTASSIUM (test code = K/ABG) 3.8 MEQ/L 3.4-5.0 N [id number] 07:13:00* Test Item Value Reference Range Interpretation Comments CHLORIDE (test code = CL/ABG) MEQ/L 100-108 CREATININE [id number] 07:13:00* Test Item Value Reference Range Interpretation Comments CREATININE ABG (test code = CREAABG) mg/dL 0.6-1.0 [id number] 07:13:00* Test Item Value Reference Range Interpretation Comments HEMOGLOBIN (test code = HGB/ABG) 9.9 G/DL 11.0-15.0 L [id number] 07:13:00* Test Item Value Reference Range Interpretation Comments HEMATOCRIT (test code = HCT/ABG) 29 % 33.0-45.0 L POC IONIZED [id number] 07:13:00* Test Item Value Reference Range Interpretation Comments POC IONIZED CALCIUM (test code = POCCA) 1.18 MMOL/L 1.12-1.32 N POC LACTIC [id number] 07:13:00* Test Item Value Reference Range Interpretation Comments POC LACTIC ACID (test code = POCLAC) 0.9 mmol/l 0.9-1.7 N POC [id number] 07:13:00* Test Item Value Reference Range Interpretation Comments POC GLUCOSE (test code = POCGLU) 114 MG/DL 70-110 H POC ARTERIAL BLOOD [id number] 07:13:00* Test Item Value Reference Range Interpretation Comments POC ARTERIAL BLOOD GAS PH (test code = POCPHA) 7.502 7.35-7. 45 HH POC ARTERIAL BLOOD GAS PCO2 (test code = UIIMJZ5H) 33.9 mmHg 35. 0-45 L POC TCO2 ARTERIAL (test code = POCTCO2) 27.5 POC ARTERIAL BLOOD GAS PO2 (test code = EQEEC4W) 64.4 mmHg 80-10 0.0 L POC HCO3 ARTERIAL (test code = FNOCZE3O) 26.5 MMOL/L 22.0-26.0 H POC BASE EXCESS (test code = POCBEA) 3.4 MMOL/L -4.0-4.0 N POC O2 SATURATION (test code = POCO2S) 94.2 % 90-100 N [id number] 07:13:00* Test Item Value Reference Range Interpretation Comments SODIUM (test code = NA/ABG) 138 MEQ/L 134-147 N [id number] 07:13:00* Test Item Value Reference Range Interpretation Comments POTASSIUM (test code = K/ABG) 3.8 MEQ/L 3.4-5.0 N [id number] 07:13:00* Test Item Value Reference Range Interpretation Comments CHLORIDE (test code = CL/ABG) 100 MEQ/L 100-108 N CREATININE [id number] 07:13:00* Test Item Value Reference Range Interpretation Comments CREATININE ABG (test code = CREAABG) mg/dL 0.6-1.0 [id number] 07:13:00* Test Item Value Reference Range Interpretation Comments HEMOGLOBIN (test code = HGB/ABG) 9.9 G/DL 11.0-15.0 L [id number] 07:13:00* Test Item Value Reference Range Interpretation Comments HEMATOCRIT (test code = HCT/ABG) 29 % 33.0-45.0 L POC IONIZED [id number] 07:13:00* Test Item Value Reference Range Interpretation Comments POC IONIZED CALCIUM (test code = POCCA) 1.18 MMOL/L 1.12-1.32 N POC LACTIC [id number] 07:13:00* Test Item Value Reference Range Interpretation Comments POC LACTIC ACID (test code = POCLAC) 0.9 mmol/l 0.9-1.7 N POC [id number] 07:13:00* Test Item Value Reference Range Interpretation Comments POC GLUCOSE (test code = POCGLU) 114 MG/DL 70-110 H POC ARTERIAL BLOOD [id number] 07:13:00* Test Item Value Reference Range Interpretation Comments POC ARTERIAL BLOOD GAS PH (test code = POCPHA) 7.502 7.35-7. 45 HH POC ARTERIAL BLOOD GAS PCO2 (test code = IONWHQ9N) 33.9 mmHg 35. 0-45 L POC TCO2 ARTERIAL (test code = POCTCO2) 27.5 POC ARTERIAL BLOOD GAS PO2 (test code = EJBRY6S) 64.4 mmHg 80-10 0.0 L POC HCO3 ARTERIAL (test code = NHBFTX0B) 26.5 MMOL/L 22.0-26.0 H POC BASE EXCESS (test code = POCBEA) 3.4 MMOL/L -4.0-4.0 N POC O2 SATURATION (test code = POCO2S) 94.2 % 90-100 N [id number] 07:13:00* Test Item Value Reference Range Interpretation Comments SODIUM (test code = NA/ABG) 138 MEQ/L 134-147 N [id number] 07:13:00* Test Item Value Reference Range Interpretation Comments POTASSIUM (test code = K/ABG) 3.8 MEQ/L 3.4-5.0 N [id number] 07:13:00* Test Item Value Reference Range Interpretation Comments CHLORIDE (test code = CL/ABG) 100 MEQ/L 100-108 N CREATININE [id number] 07:13:00* Test Item Value Reference Range Interpretation Comments CREATININE ABG (test code = CREAABG) 0.9 mg/dL 0.6-1.0 N [id number] 07:13:00* Test Item Value Reference Range Interpretation Comments HEMOGLOBIN (test code = HGB/ABG) 9.9 G/DL 11.0-15.0 L [id number] 07:13:00* Test Item Value Reference Range Interpretation Comments HEMATOCRIT (test code = HCT/ABG) 29 % 33.0-45.0 L POC IONIZED [id number] 07:13:00* Test Item Value Reference Range Interpretation Comments POC IONIZED CALCIUM (test code = POCCA) 1.18 MMOL/L 1.12-1.32 N POC LACTIC [id number] 07:13:00* Test Item Value Reference Range Interpretation Comments POC LACTIC ACID (test code = POCLAC) 0.9 mmol/l 0.9-1.7 N POC [id number] 07:13:00* Test Item Value Reference Range Interpretation Comments POC GLUCOSE (test code = POCGLU) 114 MG/DL 70-110 H B-TYPE NATRIURETIC [id number] 04:23:00* Test Item Value Reference Range Interpretation Comments B-TYPE NATRIURETIC PEPTIDE (test code = BNP) 437.9 PG/ML 0-100 H COMPREHENSIVE METABOLIC [id number] 04:17:00* Test Item Value Reference Range Interpretation Comments SODIUM (test code = NA) 134 mEq/L 134-147 N POTASSIUM (test code = K) 3.6 mEq/L 3.4-5.0 N CHLORIDE (test code = CL) 101 mEq/L 100-108 N CARBON DIOXIDE (test code = CO2) 28 mEq/L 21-33 N ANION GAP (test code = GAP) 9 0-20 N GLUCOSE (test code = GLU) 134 mg/dL 70-110 H BLOOD UREA NITROGEN (test code = BUN) 19 mg/dL 7-18 H GLOMERULAR FILTRATION RATE (test code = GFR) 73.9 90-95 L Units of measure = ml/min/1.73 m2 CREATININE (test code = CREAT) 0.8 mg/dL 0.6-1.3 N TOTAL PROTEIN (test code = PROT) 7.2 g/dL 6.4-8.2 N ALBUMIN (test code = ALB) 3.10 g/dL 3.4-5.0 L CALCIUM (test code = CA) 9.1 mg/dL 8.0-10.5 N BILIRUBIN TOTAL (test code = BILT) 0.7 MG/DL <1.5 N SGOT/AST (test code = AST) 31 IUnit/L 15-37 N SGPT/ALT (test code = ALT) 27 IUnit/L 15-65 N ALKALINE PHOSPHATASE TOTAL (test code = ALKP) 137 IUnit/L 20-125 H LIPID PROFILE (CORONARY RISK)2019-05-29 04:17:00* Test Item Value Reference Range Interpretation Comments TRIGLYCERIDES (test code = TRIG) 88 mg/dL 40-150 N CHOLESTEROL (test code = CHOL) 105 mg/dL <200 CHOLESTEROL/HDL RATIO (test code = CHOLHDL) 1.78 RATIO 3.27-4.44 L RISK ASSOCIATED WITH CHOL/HDL RATIOS: RISK MALE FEMALE1/2 AVERAGE 3.43 3.27AVERAGE 4.97 4.442X AVERAGE 9.55 7.053X AVERAGE 23.39 11.04 NOTE THAT THE REFERENCE VALUE IS RELATEDTO RISK LEVELS RECOMMENDED BY THE NATL.HEART, LUNG, AND BLOOD INST. HDL CHOLESTEROL (test code = HDL) 59.0 mg/dL 39-96 N LIPOPROTEIN LDL (test code = LDL) 33 mg/dL 0-100 N <100 [id number] NEAR OPTIMAL/ABOVE [id number] HIGH>XU=849 VERY HIGH*Guidelines provided by the National Cholesterol EducationProgram Adult Treatment Panel III COMPREHENSIVE METABOLIC [id number] 04:13:00* Test Item Value Reference Range Interpretation Comments SODIUM (test code = NA) 134 mEq/L 134-147 N POTASSIUM (test code = K) 3.6 mEq/L 3.4-5.0 N CHLORIDE (test code = CL) 101 mEq/L 100-108 N CARBON DIOXIDE (test code = CO2) 28 mEq/L 21-33 N ANION GAP (test code = GAP) 9 0-20 N GLUCOSE (test code = GLU) 134 mg/dL 70-110 H BLOOD UREA NITROGEN (test code = BUN) 19 mg/dL 7-18 H GLOMERULAR FILTRATION RATE (test code = GFR) 90-95 CREATININE (test code = CREAT) mg/dL 0.6-1.3 TOTAL PROTEIN (test code = PROT) g/dL 6.4-8.2 ALBUMIN (test code = ALB) g/dL 3.4-5.0 CALCIUM (test code = CA) 9.1 mg/dL 8.0-10.5 N BILIRUBIN TOTAL (test code = BILT) MG/DL <1.5 SGOT/AST (test code = AST) IUnit/L 15-37 SGPT/ALT (test code = ALT) IUnit/L 15-65 ALKALINE PHOSPHATASE TOTAL (test code = ALKP) IUnit/L 20-125 LIPID PROFILE (CORONARY RISK)2019-05-29 04:13:00* Test Item Value Reference Range Interpretation Comments TRIGLYCERIDES (test code = TRIG) mg/dL 40-150 CHOLESTEROL (test code = CHOL) mg/dL <200 CHOLESTEROL/HDL RATIO (test code = CHOLHDL) RATIO 3.27-4.44 HDL CHOLESTEROL (test code = HDL) mg/dL 39-96 LIPOPROTEIN LDL (test code = LDL) mg/dL 0-100 PROTHROMBIN [id number] 04:09:00* Test Item Value Reference Range Interpretation Comments PROTHROMBIN TIME PATIENT (test code = PTP) 12.7 SECONDS 9.3-12.9 N INTERNATIONAL NORMAL RATIO (test code = INR) 1.2 0.8-1.2 N TARGET INR BY INDICATION Indication INR1. Prophylaxis of venous thrombosis 2.0 - 3.0 (orthopedic surgery), Prophylaxis of venous thrombosis (other than high-risk surgery), Treatment of Deep Vein Thrombosis/Pulmonary Embolism, Prevention of systemic embolism - Tissue heart valves, Acute Myocardial Infarction (to prevent systemic embolism), Valvular heart disease, Atrial Fibrillation, Bileaflet mechanical valve in aortic position.2. Mechanical prosthetic valves (high risk), 2.5 - 3.5 Presence of Lupus Anticoagulant or Antiphospholipid Antibodies, Prevention of systemic embolism - Acute Myocardial Infarction (to prevent recurrent infarct). THROMBOPLASTIN TIME [id number] 04:09:00* Test Item Value Reference Range Interpretation Comments THROMBOPLASTIN TIME PARTIAL (test code = PTT) 75.4 Seconds 25.0-39. 5 H Therapeutic Range: 50.4 - 88.3 Seconds Effective 06/07/2018 CBC W/AUTO [id number] 03:57:00* Test Item Value Reference Range Interpretation Comments WHITE BLOOD CELL (test code = WBC) 9.00 x10 3/uL 4.5-11.0 N RED BLOOD CELL (test code = RBC) 3.37 x10 6/uL 3.54-5.02 L HEMOGLOBIN (test code = HGB) 9.2 g/dL 11.0-15.0 L HEMATOCRIT (test code = HCT) 29.1 % 33.0-45.0 L MEAN CELL VOLUME (test code = MCV) 86.4 fL 81.0-99.0 N MEAN CELL HGB (test code = MCH) 27.3 pg 27.0-33.0 N MEAN CELL HGB CONCETRATION (test code = MCHC) 31.6 g/dL 33.0-37. 0 L RED CELL DISTRIBUTION WIDTH CV (test code = RDW) 14.6 % 11.5- 14.5 H RED CELL DISTRIBUTION WIDTH SD (test code = RDW-SD) 46.1 fL 37 .0-54.0 N PLATELET COUNT (test code = PLT) 299 x10 3/uL 150-400 N MEAN PLATELET VOLUME (test code = MPV) 10.6 fL 7.0-9.0 H NEUTROPHIL % (test code = NT%) 64.1 % 56.0-77.0 N IMMATURE GRANULOCYTE % (test code = IG%) 0.4 % 0.0-2.0 N LYMPHOCYTE % (test code = LY%) 24.0 % 14.0-32.0 N MONOCYTE % (test code = MO%) 6.2 % 4.8-9.0 N EOSINOPHIL % (test code = EO%) 4.1 % 0.3-3.7 H BASOPHIL % (test code = BA%) 1.2 % 0.0-2.0 N NUCLEATED RBC % (test code = NRBC%) 0.0 % 0-0 N NEUTROPHIL # (test code = NT#) 5.76 x10 3/uL 2.0-7.6 N IMMATURE GRANULOCYTE # (test code = IG#) 0.04 x10 3/uL 0.00-0.03 H LYMPHOCYTE # (test code = LY#) 2.16 x10 3/uL 1.0-3.8 N MONOCYTE # (test code = MO#) 0.56 x10 3/uL 0.1-0.8 N EOSINOPHIL # (test code = EO#) 0.37 x10 3/uL 0.0-0.2 H BASOPHIL # (test code = BA#) 0.11 x10 3/uL 0.0-0.2 N NUCLEATED RBC # (test code = NRBC#) 0.00 x10 3/uL 0.0-0.1 N MANUAL DIFF REQUIRED (test code = MDIFF) NO THROMBOPLASTIN TIME [id number] 21:19:00* Test Item Value Reference Range Interpretation Comments THROMBOPLASTIN TIME PARTIAL (test code = PTT) 70.4 Seconds 25.0-39. 5 H Therapeutic Range: 50.4 - 88.3 Seconds Effective 06/07/2018 THROMBOPLASTIN TIME [id number] 14:17:00* Test Item Value Reference Range Interpretation Comments THROMBOPLASTIN TIME PARTIAL (test code = PTT) 69.9 Seconds 25.0-39. 5 H Therapeutic Range: 50.4 - 88.3 Seconds Effective 06/07/2018 URINALYSIS [id number] 13:39:00* Test Item Value Reference Range Interpretation Comments UA COLOR (test code = COLU) STRAW YEL/STRAW UA APPEARANCE (test code = APPU) CLEAR CLEAR UA GLUCOSE DIPSTICK (test code = DGLUU) NEGATIVE NEGATIVE UA BILIRUBIN DIPSTICK (test code = BILU) NEGATIVE NEGATIVE UA KETONE DIPSTICK (test code = KETU) NEGATIVE NEGATIVE UA SPECIFIC GRAVITY (test code = SGU) 1.005 1.005-1.030 N UA BLOOD DIPSTICK (test code = JANN) 1+ NEGATIVE A UA PH DIPSTICK (test code = MAE) 7.0 5.0-7.0 N UA PROTEIN DIPSTICK (test code = PROU) NEGATIVE NEGATIVE UA UROBILINIOGEN DIPSTICK (test code = URO) 0.2 mg/dL 0.2-1.0 UA NITRITE DIPSTICK (test code = SVETLANA) NEGATIVE NEGATIVE UA LEUKOCYTE ESTERASE DIPSTICK (test code = LEUU) 1+ NEGA TIVE A UA RBC (test code = RBCU) 0-3 RBC/HPF 0-3 UA WBC NO REFLEX (test code = WBCUCL) 10-20 WBC/HPF 0-3 A UA BACTERIA (test code = BACU) TRACE /HPF NONE SEEN UA SQUAMOUS CELLS (test code = SQU) 0-5 /HPF NONE SEEN UA MUCUS (test code = MUCU) TRACE /LPF NONE SEEN THROMBOPLASTIN TIME [id number] 07:01:00* Test Item Value Reference Range Interpretation Comments THROMBOPLASTIN TIME PARTIAL (test code = PTT) 53.2 Seconds 25.0-39. 5 H Therapeutic Range: 50.4 - 88.3 Seconds Effective 06/07/2018 BASIC METABOLIC [id number] 06:10:00* Test Item Value Reference Range Interpretation Comments SODIUM (test code = NA) 135 mEq/L 134-147 N POTASSIUM (test code = K) 3.7 mEq/L 3.4-5.0 N CHLORIDE (test code = CL) 101 mEq/L 100-108 N CARBON DIOXIDE (test code = CO2) 27 mEq/L 21-33 N ANION GAP (test code = GAP) 11 0-20 N GLUCOSE (test code = GLU) 54 mg/dL 70-110 L BLOOD UREA NITROGEN (test code = BUN) 17 mg/dL 7-18 N GLOMERULAR FILTRATION RATE (test code = GFR) 86.2 90-95 L Units of measure = ml/min/1.73 m2 CREATININE (test code = CREAT) 0.7 mg/dL 0.6-1.3 N CALCIUM (test code = CA) 9.1 mg/dL 8.0-10.5 N [id number] 06:10:00* Test Item Value Reference Range Interpretation Comments PHOSPHOROUS (test code = PHOS) 3.4 MG/DL 2.5-4.9 N [id number] 06:10:00* Test Item Value Reference Range Interpretation Comments MAGNESIUM (test code = MAG) 2.00 mg/dL 1.8-2.4 N CBC W/AUTO [id number] 05:46:00* Test Item Value Reference Range Interpretation Comments WHITE BLOOD CELL (test code = WBC) 9.91 x10 3/uL 4.5-11.0 N RED BLOOD CELL (test code = RBC) 3.61 x10 6/uL 3.54-5.02 N HEMOGLOBIN (test code = HGB) 10.0 g/dL 11.0-15.0 L HEMATOCRIT (test code = HCT) 31.0 % 33.0-45.0 L MEAN CELL VOLUME (test code = MCV) 85.9 fL 81.0-99.0 N MEAN CELL HGB (test code = MCH) 27.7 pg 27.0-33.0 N MEAN CELL HGB CONCETRATION (test code = MCHC) 32.3 g/dL 33.0-37. 0 L RED CELL DISTRIBUTION WIDTH CV (test code = RDW) 14.6 % 11.5- 14.5 H RED CELL DISTRIBUTION WIDTH SD (test code = RDW-SD) 45.6 fL 37 .0-54.0 N PLATELET COUNT (test code = PLT) 314 x10 3/uL 150-400 N MEAN PLATELET VOLUME (test code = MPV) 11.0 fL 7.0-9.0 H NEUTROPHIL % (test code = NT%) 55.9 % 56.0-77.0 L IMMATURE GRANULOCYTE % (test code = IG%) 0.6 % 0.0-2.0 N LYMPHOCYTE % (test code = LY%) 32.1 % 14.0-32.0 H MONOCYTE % (test code = MO%) 6.1 % 4.8-9.0 N EOSINOPHIL % (test code = EO%) 4.1 % 0.3-3.7 H BASOPHIL % (test code = BA%) 1.2 % 0.0-2.0 N NUCLEATED RBC % (test code = NRBC%) 0.0 % 0-0 N NEUTROPHIL # (test code = NT#) 5.54 x10 3/uL 2.0-7.6 N IMMATURE GRANULOCYTE # (test code = IG#) 0.06 x10 3/uL 0.00-0.03 H LYMPHOCYTE # (test code = LY#) 3.18 x10 3/uL 1.0-3.8 N MONOCYTE # (test code = MO#) 0.60 x10 3/uL 0.1-0.8 N EOSINOPHIL # (test code = EO#) 0.41 x10 3/uL 0.0-0.2 H BASOPHIL # (test code = BA#) 0.12 x10 3/uL 0.0-0.2 N NUCLEATED RBC # (test code = NRBC#) 0.00 x10 3/uL 0.0-0.1 N MANUAL DIFF REQUIRED (test code = MDIFF) NO COMMENTS: Daily while on [id number] 21:08:00* Test Item Value Reference Range Interpretation Comments GLUBED (test code = GLUBED) 211 MG/DL 70-110 H Performed by certified cable machine operator at [facility] [id number] 17:14:00* Test Item Value Reference Range Interpretation Comments GLUBED (test code = GLUBED) 146 MG/DL 70-110 H Performed by certified cable machine operator at [facility] [id number] 11:33:00* Test Item Value Reference Range Interpretation Comments GLUBED (test code = GLUBED) 336 MG/DL 70-110 H Performed by certified cable machine operator at [facility] [id number] 07:23:00* Test Item Value Reference Range Interpretation Comments GLUBED (test code = GLUBED) 242 MG/DL 70-110 H Performed by certified cable machine operator at [facility] THROMBOPLASTIN TIME [id number] 04:56:00* Test Item Value Reference Range Interpretation Comments THROMBOPLASTIN TIME PARTIAL (test code = PTT) 54.9 Seconds 25.0-39. 5 H Therapeutic Range: 50.4 - 88.3 Seconds Effective 06/07/2018 BASIC METABOLIC [id number] 04:52:00* Test Item Value Reference Range Interpretation Comments SODIUM (test code = NA) 134 mEq/L 134-147 N POTASSIUM (test code = K) 3.5 mEq/L 3.4-5.0 N CHLORIDE (test code = CL) 101 mEq/L 100-108 N CARBON DIOXIDE (test code = CO2) 26 mEq/L 21-33 N ANION GAP (test code = GAP) 11 0-20 N GLUCOSE (test code = GLU) 104 mg/dL 70-110 BLOOD UREA NITROGEN (test code = BUN) 15 mg/dL 7-18 N GLOMERULAR FILTRATION RATE (test code = GFR) 73.9 90-95 L Units of measure = ml/min/1.73 m2 CREATININE (test code = CREAT) 0.8 mg/dL 0.6-1.3 N CALCIUM (test code = CA) 8.8 mg/dL 8.0-10.5 N BASIC METABOLIC [id number] 04:50:00* Test Item Value Reference Range Interpretation Comments SODIUM (test code = NA) 134 mEq/L 134-147 N POTASSIUM (test code = K) 3.5 mEq/L 3.4-5.0 N CHLORIDE (test code = CL) 101 mEq/L 100-108 N CARBON DIOXIDE (test code = CO2) 26 mEq/L 21-33 N ANION GAP (test code = GAP) 11 0-20 N GLUCOSE (test code = GLU) 104 mg/dL 70-110 BLOOD UREA NITROGEN (test code = BUN) 15 mg/dL 7-18 N GLOMERULAR FILTRATION RATE (test code = GFR) 90-95 CREATININE (test code = CREAT) mg/dL 0.6-1.3 CALCIUM (test code = CA) 8.8 mg/dL 8.0-10.5 N CBC W/AUTO [id number] 04:37:00* Test Item Value Reference Range Interpretation Comments WHITE BLOOD CELL (test code = WBC) 9.91 x10 3/uL 4.5-11.0 N RED BLOOD CELL (test code = RBC) 3.42 x10 6/uL 3.54-5.02 L HEMOGLOBIN (test code = HGB) 9.5 g/dL 11.0-15.0 L HEMATOCRIT (test code = HCT) 29.5 % 33.0-45.0 L MEAN CELL VOLUME (test code = MCV) 86.3 fL 81.0-99.0 N MEAN CELL HGB (test code = MCH) 27.8 pg 27.0-33.0 N MEAN CELL HGB CONCETRATION (test code = MCHC) 32.2 g/dL 33.0-37. 0 L RED CELL DISTRIBUTION WIDTH CV (test code = RDW) 14.6 % 11.5- 14.5 H RED CELL DISTRIBUTION WIDTH SD (test code = RDW-SD) 45.8 fL 37 .0-54.0 N PLATELET COUNT (test code = PLT) 268 x10 3/uL 150-400 N MEAN PLATELET VOLUME (test code = MPV) 10.6 fL 7.0-9.0 H NEUTROPHIL % (test code = NT%) 66.5 % 56.0-77.0 N IMMATURE GRANULOCYTE % (test code = IG%) 0.3 % 0.0-2.0 N LYMPHOCYTE % (test code = LY%) 23.4 % 14.0-32.0 N MONOCYTE % (test code = MO%) 5.8 % 4.8-9.0 N EOSINOPHIL % (test code = EO%) 3.2 % 0.3-3.7 N BASOPHIL % (test code = BA%) 0.8 % 0.0-2.0 N NUCLEATED RBC % (test code = NRBC%) 0.0 % 0-0 N NEUTROPHIL # (test code = NT#) 6.59 x10 3/uL 2.0-7.6 N IMMATURE GRANULOCYTE # (test code = IG#) 0.03 x10 3/uL 0.00-0.03 N LYMPHOCYTE # (test code = LY#) 2.32 x10 3/uL 1.0-3.8 N MONOCYTE # (test code = MO#) 0.57 x10 3/uL 0.1-0.8 N EOSINOPHIL # (test code = EO#) 0.32 x10 3/uL 0.0-0.2 H BASOPHIL # (test code = BA#) 0.08 x10 3/uL 0.0-0.2 N NUCLEATED RBC # (test code = NRBC#) 0.00 x10 3/uL 0.0-0.1 N MANUAL DIFF REQUIRED (test code = MDIFF) NO COMMENTS: Daily while on [id number] 04:33:00* Test Item Value Reference Range Interpretation Comments GLUBED (test code = GLUBED) 90 MG/DL 70-110 N Performed by certified cable machine operator at [facility] [id number] 20:53:00* Test Item Value Reference Range Interpretation Comments GLUBED (test code = GLUBED) 66 MG/DL 70-110 L Performed by certified cable machine operator at [facility] [id number] 19:16:00* Test Item Value Reference Range Interpretation Comments GLUBED (test code = GLUBED) 301 MG/DL 70-110 H Performed by certified cable machine operator at [facility] [id number] 16:49:00* Test Item Value Reference Range Interpretation Comments GLUBED (test code = GLUBED) 111 MG/DL 70-110 H Performed by certified cable machine operator at [facility] [id number] 14:20:00* Test Item Value Reference Range Interpretation Comments GLUBED (test code = GLUBED) 41 MG/DL 70-110 L Performed by certified cable machine operator at [facility] [id number] 14:20:00* Test Item Value Reference Range Interpretation Comments GLUBED (test code = GLUBED) 37 MG/DL 70-110 L Performed by certified cable machine operator at [facility] [id number] 12:25:00* Test Item Value Reference Range Interpretation Comments GLUBED (test code = GLUBED) 359 MG/DL 70-110 H Performed by certified cable machine operator at [facility] [id number] 08:02:00* Test Item Value Reference Range Interpretation Comments GLUBED (test code = GLUBED) 41 MG/DL 70-110 L Performed by certified cable machine operator at [facility] [id number] 08:01:00* Test Item Value Reference Range Interpretation Comments GLUBED (test code = GLUBED) 37 MG/DL 70-110 L Performed by certified cable machine operator at [facility] THROMBOPLASTIN TIME [id number] 05:30:00* Test Item Value Reference Range Interpretation Comments THROMBOPLASTIN TIME PARTIAL (test code = PTT) 64.6 Seconds 25.0-39. 5 H Therapeutic Range: 50.4 - 88.3 Seconds Effective 06/07/2018 BASIC METABOLIC [id number] 05:18:00* Test Item Value Reference Range Interpretation Comments SODIUM (test code = NA) 134 mEq/L 134-147 N POTASSIUM (test code = K) 3.9 mEq/L 3.4-5.0 N CHLORIDE (test code = CL) 103 mEq/L 100-108 N CARBON DIOXIDE (test code = CO2) 24 mEq/L 21-33 N ANION GAP (test code = GAP) 11 0-20 N GLUCOSE (test code = GLU) 288 mg/dL 70-110 H BLOOD UREA NITROGEN (test code = BUN) 15 mg/dL 7-18 N GLOMERULAR FILTRATION RATE (test code = GFR) 86.2 90-95 L Units of measure = ml/min/1.73 m2 CREATININE (test code = CREAT) 0.7 mg/dL 0.6-1.3 N CALCIUM (test code = CA) 8.6 mg/dL 8.0-10.5 N CBC W/AUTO [id number] 05:12:00* Test Item Value Reference Range Interpretation Comments WHITE BLOOD CELL (test code = WBC) 8.95 x10 3/uL 4.5-11.0 N RED BLOOD CELL (test code = RBC) 3.40 x10 6/uL 3.54-5.02 L HEMOGLOBIN (test code = HGB) 9.4 g/dL 11.0-15.0 L HEMATOCRIT (test code = HCT) 29.5 % 33.0-45.0 L MEAN CELL VOLUME (test code = MCV) 86.8 fL 81.0-99.0 N MEAN CELL HGB (test code = MCH) 27.6 pg 27.0-33.0 N MEAN CELL HGB CONCETRATION (test code = MCHC) 31.9 g/dL 33.0-37. 0 L RED CELL DISTRIBUTION WIDTH CV (test code = RDW) 14.5 % 11.5- 14.5 N RED CELL DISTRIBUTION WIDTH SD (test code = RDW-SD) 46.2 fL 37 .0-54.0 N PLATELET COUNT (test code = PLT) 251 x10 3/uL 150-400 N MEAN PLATELET VOLUME (test code = MPV) 10.7 fL 7.0-9.0 H NEUTROPHIL % (test code = NT%) 62.0 % 56.0-77.0 N IMMATURE GRANULOCYTE % (test code = IG%) 0.4 % 0.0-2.0 N LYMPHOCYTE % (test code = LY%) 25.3 % 14.0-32.0 N MONOCYTE % (test code = MO%) 7.0 % 4.8-9.0 N EOSINOPHIL % (test code = EO%) 4.5 % 0.3-3.7 H BASOPHIL % (test code = BA%) 0.8 % 0.0-2.0 N NUCLEATED RBC % (test code = NRBC%) 0.0 % 0-0 N NEUTROPHIL # (test code = NT#) 5.55 x10 3/uL 2.0-7.6 N IMMATURE GRANULOCYTE # (test code = IG#) 0.04 x10 3/uL 0.00-0.03 H LYMPHOCYTE # (test code = LY#) 2.26 x10 3/uL 1.0-3.8 N MONOCYTE # (test code = MO#) 0.63 x10 3/uL 0.1-0.8 N EOSINOPHIL # (test code = EO#) 0.40 x10 3/uL 0.0-0.2 H BASOPHIL # (test code = BA#) 0.07 x10 3/uL 0.0-0.2 N NUCLEATED RBC # (test code = NRBC#) 0.00 x10 3/uL 0.0-0.1 N MANUAL DIFF REQUIRED (test code = MDIFF) NO COMMENTS: Daily while on [id number] 00:29:00* Test Item Value Reference Range Interpretation Comments GLUBED (test code = GLUBED) 191 MG/DL 70-110 H Performed by certified cable machine operator at [facility] [id number] 00:28:00* Test Item Value Reference Range Interpretation Comments GLUBED (test code = GLUBED) 65 MG/DL 70-110 L Performed by certified cable machine operator at [facility] [id number] 00:27:00* Test Item Value Reference Range Interpretation Comments GLUBED (test code = GLUBED) 55 MG/DL 70-110 L Performed by certified cable machine operator at [facility] [id number] 21:14:00* Test Item Value Reference Range Interpretation Comments GLUBED (test code = GLUBED) 75 MG/DL 70-110 N Performed by certified cable machine operator at [facility] - CT HEAD/BRAIN W/O [id number] 15:11:00 Name: VANDA HATCH [facility] : 1960 Age/S: 58 / F [address] [place] [address] Unit #: [id number] Loc: [place] [address] Phys: Elzbieta Caballero NP Acct: [id number] Dis Date: Status: ADM IN PHONE #: [phone] Exam Date: 05/25/2019 1503 FAX #: [phone] Reason: double vision on left eye- dizziness EXAMS: CPT CODE: [id number] CT HEAD/BRAIN W/O CONT 19378 CT head without contrast 05/25/2019 HISTORY: Double vision of left eye. Dizziness. PROCEDURE: Multiple axial images from the skull base to the skull vertex were obtained without contrast. Coronal and sagittal reconstructed images were performed CT imaging performed at this location utilizes radiation dose optimization techniques which include one or more of the following: - Automated exposure control -Adjustment of the mA and/or kV according to patient size -Use of iterative reconstruction technique CT Radiation Dose DLP 1030 mGy-cm No prior exams are available for comparison FINDINGS: No acute intracranial hemorrhage, midline shift, extra- axial fluid collection, or hydrocephalus is present. No sulcal effacement to suggest an acute infarct is present. Benavidez white differentiation is within normal limits. The visualized mastoid air cells are clear. There is no paranasal sinus air-fluid level. Distal internal carotid arterial calcifications are present. IMPRESSION: No acut e intracranial abnormality. SL: [id number] at 1511 Reported and signed b y: Kris Boles M.D. CC: Santi Cortés MD; Marvel Schroeder; Dennys Aguilar DO; Elzbieta Caballero NP Technologist:Linnea Brink, RT(R)(CT) CTDI: DLP: Trnscb Date/Time: 05/25/2019 (9271) [id number] P AGE 2 Signed Report GLUBED 2019-05-25 11:50:00* Test Item Value Reference Range Interpretation Comments GLUBED (test code = GLUBED) 216 MG/DL 70-110 H Performed by certified cable machine operator at [facility] [id number] 10:16:00* Test Item Value Reference Range Interpretation Comments MAGNESIUM (test code = MAG) 2.00 mg/dL 1.8-2.4 N COMMENTS: please add to m labTHROMBOPLASTIN TIME [id number] 05:42:00* Test Item Value Reference Range Interpretation Comments THROMBOPLASTIN TIME PARTIAL (test code = PTT) 75.8 Seconds 25.0-39. 5 H Therapeutic Range: 50.4 - 88.3 Seconds Effective 06/07/2018 BASIC METABOLIC [id number] 05:39:00* Test Item Value Reference Range Interpretation Comments SODIUM (test code = NA) 137 mEq/L 134-147 N POTASSIUM (test code = K) 3.7 mEq/L 3.4-5.0 N CHLORIDE (test code = CL) 106 mEq/L 100-108 N CARBON DIOXIDE (test code = CO2) 25 mEq/L 21-33 N ANION GAP (test code = GAP) 10 0-20 N GLUCOSE (test code = GLU) 127 mg/dL 70-110 H BLOOD UREA NITROGEN (test code = BUN) 15 mg/dL 7-18 N GLOMERULAR FILTRATION RATE (test code = GFR) 73.9 90-95 L Units of measure = ml/min/1.73 m2 CREATININE (test code = CREAT) 0.8 mg/dL 0.6-1.3 N CALCIUM (test code = CA) 8.6 mg/dL 8.0-10.5 N COMMENTS: To be done morning of Heart CathBASIC METABOLIC [id number] 05:35:00* Test Item Value Reference Range Interpretation Comments SODIUM (test code = NA) 137 mEq/L 134-147 N POTASSIUM (test code = K) 3.7 mEq/L 3.4-5.0 N CHLORIDE (test code = CL) 106 mEq/L 100-108 N CARBON DIOXIDE (test code = CO2) 25 mEq/L 21-33 N ANION GAP (test code = GAP) 10 0-20 N GLUCOSE (test code = GLU) 127 mg/dL 70-110 H BLOOD UREA NITROGEN (test code = BUN) 15 mg/dL 7-18 N GLOMERULAR FILTRATION RATE (test code = GFR) 90-95 CREATININE (test code = CREAT) mg/dL 0.6-1.3 CALCIUM (test code = CA) 8.6 mg/dL 8.0-10.5 N COMMENTS: To be done morning of Heart CathCBC W/AUTO [id number] 05:21:00* Test Item Value Reference Range Interpretation Comments WHITE BLOOD CELL (test code = WBC) 10.01 x10 3/uL 4.5-11.0 N RED BLOOD CELL (test code = RBC) 3.37 x10 6/uL 3.54-5.02 L HEMOGLOBIN (test code = HGB) 9.6 g/dL 11.0-15.0 L HEMATOCRIT (test code = HCT) 29.1 % 33.0-45.0 L MEAN CELL VOLUME (test code = MCV) 86.4 fL 81.0-99.0 N MEAN CELL HGB (test code = MCH) 28.5 pg 27.0-33.0 N MEAN CELL HGB CONCETRATION (test code = MCHC) 33.0 g/dL 33.0-37. 0 N RED CELL DISTRIBUTION WIDTH CV (test code = RDW) 14.2 % 11.5- 14.5 N RED CELL DISTRIBUTION WIDTH SD (test code = RDW-SD) 44.8 fL 37 .0-54.0 N PLATELET COUNT (test code = PLT) 263 x10 3/uL 150-400 N MEAN PLATELET VOLUME (test code = MPV) 10.8 fL 7.0-9.0 H NEUTROPHIL % (test code = NT%) 68.1 % 56.0-77.0 N IMMATURE GRANULOCYTE % (test code = IG%) 0.2 % 0.0-2.0 N LYMPHOCYTE % (test code = LY%) 21.4 % 14.0-32.0 N MONOCYTE % (test code = MO%) 5.8 % 4.8-9.0 N EOSINOPHIL % (test code = EO%) 3.8 % 0.3-3.7 H BASOPHIL % (test code = BA%) 0.7 % 0.0-2.0 N NUCLEATED RBC % (test code = NRBC%) 0.0 % 0-0 N NEUTROPHIL # (test code = NT#) 6.82 x10 3/uL 2.0-7.6 N IMMATURE GRANULOCYTE # (test code = IG#) 0.02 x10 3/uL 0.00-0.03 N LYMPHOCYTE # (test code = LY#) 2.14 x10 3/uL 1.0-3.8 N MONOCYTE # (test code = MO#) 0.58 x10 3/uL 0.1-0.8 N EOSINOPHIL # (test code = EO#) 0.38 x10 3/uL 0.0-0.2 H BASOPHIL # (test code = BA#) 0.07 x10 3/uL 0.0-0.2 N NUCLEATED RBC # (test code = NRBC#) 0.00 x10 3/uL 0.0-0.1 N MANUAL DIFF REQUIRED (test code = MDIFF) NO COMMENTS: To be done morning of Heart CathTHROMBOPLASTIN TIME [id number] 23:44:00* Test Item Value Reference Range Interpretation Comments THROMBOPLASTIN TIME PARTIAL (test code = PTT) 75.8 Seconds 25.0-39. 5 H Therapeutic Range: 50.4 - 88.3 Seconds Effective 06/07/2018 [id number] 21:48:00* Test Item Value Reference Range Interpretation Comments GLUBED (test code = GLUBED) 107 MG/DL 70-110 N Performed by certified cable machine operator at [facility] [id number] 17:49:00* Test Item Value Reference Range Interpretation Comments GLUBED (test code = GLUBED) 235 MG/DL 70-110 H Performed by certified cable machine operator at [facility] [id number] 14:13:00* Test Item Value Reference Range Interpretation Comments GLUBED (test code = GLUBED) 257 MG/DL 70-110 H Performed by certified cable machine operator at [facility] [id number] 12:49:00* Test Item Value Reference Range Interpretation Comments ACT-ISTAT (test code = ACTI) 263 SEC 74-137 H Performed by certified cable machine operator at [facility] [id number] 11:56:00* Test Item Value Reference Range Interpretation Comments ACT-ISTAT (test code = ACTI) 252 SEC 74-137 H Performed by certified cable machine operator at [facility] PROTHROMBIN [id number] 10:30:00* Test Item Value Reference Range Interpretation Comments PROTHROMBIN TIME PATIENT (test code = PTP) 12.5 SECONDS 9.3-12.9 N INTERNATIONAL NORMAL RATIO (test code = INR) 1.1 0.8-1.2 N TARGET INR BY INDICATION Indication INR1. Prophylaxis of venous thrombosis 2.0 - 3.0 (orthopedic surgery), Prophylaxis of venous thrombosis (other than high-risk surgery), Treatment of Deep Vein Thrombosis/Pulmonary Embolism, Prevention of systemic embolism - Tissue heart valves, Acute Myocardial Infarction (to prevent systemic embolism), Valvular heart disease, Atrial Fibrillation, Bileaflet mechanical valve in aortic position.2. Mechanical prosthetic valves (high risk), 2.5 - 3.5 Presence of Lupus Anticoagulant or Antiphospholipid Antibodies, Prevention of systemic embolism - Acute Myocardial Infarction (to prevent recurrent infarct). COMMENTS: IF NOT ALREADY DONE WITHIN LAST 24 HOURSTHROMBOPLASTIN TIME PARTIAL 2019-05-24 10:30:00* Test Item Value Reference Range Interpretation Comments THROMBOPLASTIN TIME PARTIAL (test code = PTT) 34.4 Seconds 25.0-39. 5 N Therapeutic Range: 50.4 - 88.3 Seconds Effective 06/07/2018 COMMENTS: IF NOT ALREADY DONE WITHIN LAST 24 HOURS- CAR MRI MRP FN WO/W CM 2019-05-24 10:25:00 FAX: Cory Flores NP [place]: St: ADM FAX: Santi De León MD [phone] FAX: Dennys Newell DO [phone] Name: VANDA HATCH 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 - Left ventricular ejection fraction measures 27%. - Left ventricular end-d iastolic volume measures 130 mL. - Left ventricular end-systolic volume me asures 95 mL. - The stroke volume measures 35 mL. Electr onically Signed by Erinn Blackwell on 02/2019 at 1025 Reported and signed by: Radha Blackwell M.D. Report CARDIAC MRI WITH AND WITHOUT IV CO NTRAST 05/23/2019. CLINICAL INDICATION: Acute systolic heart failu re. Abnormal echo. Anterior wall not moving. COMPARISON: Noncontrast chest CT 05/22/2019. ADMINISTERED CONTRAST: 14 mL of MultiHanc e intravenously. TECHNIQUE: A cardiac MRI was performed befo re and after the administration of gadolinium. Bright-blood cine imaging w as acquired for the assessment of global and regional left ventricular fun ction. T2 Weighted Imaging was performed to assess myocardial edema. Delay ed enhancement images were acquired to assess for myocardial viability. DISCUSSION: LEFT VENTRICULAR MORPHOLOGY/FUNCTION: Cardiomegaly with multichamber enlargement and diffuse thinning of the apical septum, mid/apical anterior wall, apex and lateral apical wall. 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 Severely hypokinetic to akinetic apical septum. Hypokinetic basal and mid inferior wall with normal lateral basal wall motion. Hypokinetic mid and basal septum. The left ventricular ejection fraction and ventricular volumes to be dictated as an addendum report after case post processing. RIGHT VENTRICLE: Normal right ventricular thickness and systolic/diastolic wall motion. No fibrofatty infiltration of the right ventricular free wall. VALVULAR FUNCTION: There is no evidence of significant valvular stenosis or regurgitation. PERICARDIUM: No evidence of substantial effusion, thickening or enhancement. T2-WEIGHTED IMAGING: No evidence of myocardial edema. DELAYED ENHANCEMENT: Diffusely scarred ventricular apex, mid/anterior apex, inferior apical and apical lateral wall. Approximately 50% thickness delayed enhancement at the ventricular apex and at least 1/3 thickness delayed enhancement involving the mid anterior wall, anterior apex, apical septum and lateral apical wall compatible with nonviable myocardium. Remaining septum, mid/basal lateral wall and basal anterior wall are viable. IMPRESSION: 1. Approx imately 50% thickness nonviable scar involving the left ventricular apex . 2. At least 1/3 thickness nonviable scar involving the mid anterior wall, anterior apical, apical septum and lateral apex. 3. Fully viable mid/basal septum, mid/basal inferior wall and anterior basal wall . 4. Left ventricular ejection fraction and ventricular volumes to be PAGE 2 Signed Report (CONTINUED) FA X: Cory Flores NP [place]: St: [facility] FAX: Santi De León MD [phone] FAX: Dennys Newell DO [phone] ------ Name: VANDA HATCH [facility] : 1960 Age/S: 58/F [address] [place] [address] Blvd Unit #: [id number] Loc: [id number] [place] [address] Phys: Cory Walsh NP Acct: [id number] Dis Date: Status: ADM IN PHONE #: [phone] Exam Date: 05/23/20191928 FAX #: [phone] Reason: EF 20% ANTERIOR WALL NOT MOVING Report Has Been Amended EXAMS: CPT CODE: [id number] CAR MRI MRP FN WO/[place] [address] <Continued> dictated as an addendum report after case post processing. 5. No visible valvular stenotic or regurgitant jet. 6. No signs of intracardiac thrombus, ventricular hypertrophy or aneurysm. 7. No pericardial thickening or effusion. 8. No significant extracardiac findings. SL: ER-H at 1000 Reported and signed by: Paulo Blackwell M.D. CC: Cory Flores NP; Santi Cortés MD; Dennys Aguilar DO Technologist: RT Capo(R)(CT)(MR) Trnscrd Date/Time/By: 05/24/2019 (1000) : By: [email or web address] Orig Print D/T: S: 05/24/2019 (1003) PAGE 3 Signed Report CBC W/AUTO [id number] 10:11:00* Test Item Value Reference Range Interpretation Comments WHITE BLOOD CELL (test code = WBC) 10.37 x10 3/uL 4.5-11.0 N RED BLOOD CELL (test code = RBC) 4.20 x10 6/uL 3.54-5.02 N HEMOGLOBIN (test code = HGB) 11.6 g/dL 11.0-15.0 N HEMATOCRIT (test code = HCT) 36.1 % 33.0-45.0 N MEAN CELL VOLUME (test code = MCV) 86.0 fL 81.0-99.0 N MEAN CELL HGB (test code = MCH) 27.6 pg 27.0-33.0 N MEAN CELL HGB CONCETRATION (test code = MCHC) 32.1 g/dL 33.0-37. 0 L RED CELL DISTRIBUTION WIDTH CV (test code = RDW) 14.3 % 11.5- 14.5 N RED CELL DISTRIBUTION WIDTH SD (test code = RDW-SD) 44.7 fL 37 .0-54.0 N PLATELET COUNT (test code = PLT) 300 x10 3/uL 150-400 N MEAN PLATELET VOLUME (test code = MPV) 10.6 fL 7.0-9.0 H NEUTROPHIL % (test code = NT%) 68.6 % 56.0-77.0 N IMMATURE GRANULOCYTE % (test code = IG%) 0.8 % 0.0-2.0 N LYMPHOCYTE % (test code = LY%) 21.7 % 14.0-32.0 N MONOCYTE % (test code = MO%) 5.9 % 4.8-9.0 N EOSINOPHIL % (test code = EO%) 2.2 % 0.3-3.7 N BASOPHIL % (test code = BA%) 0.8 % 0.0-2.0 N NUCLEATED RBC % (test code = NRBC%) 0.0 % 0-0 N NEUTROPHIL # (test code = NT#) 7.12 x10 3/uL 2.0-7.6 N IMMATURE GRANULOCYTE # (test code = IG#) 0.08 x10 3/uL 0.00-0.03 H LYMPHOCYTE # (test code = LY#) 2.25 x10 3/uL 1.0-3.8 N MONOCYTE # (test code = MO#) 0.61 x10 3/uL 0.1-0.8 N EOSINOPHIL # (test code = EO#) 0.23 x10 3/uL 0.0-0.2 H BASOPHIL # (test code = BA#) 0.08 x10 3/uL 0.0-0.2 N NUCLEATED RBC # (test code = NRBC#) 0.00 x10 3/uL 0.0-0.1 N MANUAL DIFF REQUIRED (test code = MDIFF) NO COMMENTS: IF NOT ALREADY DONE WITHIN LAST 24 HOURS- CAR MRI MRP FN WO/W CM 2019-05-24 10:00:00 FAX: Cory Flores NP [place]: St: ADM FAX: Santi De León MD [phone] FAX: Dennys Newell DO [phone] Name: VANDA HATCH [facility] : 1960 Age/S: 58/F [address] [place] [address] Unit #: [id number] Loc: G.33[address] [place] [address] Phys: Cory Flores NP Acct: [id number] Dis Date: Status: ADM IN ONE #: [phone] Exam Date: 05/23/20191928 FAX #: [phone] Reason: EF 20% ANTERIOR WALL NOT MOVING EXAMS: CPT CODE: [id number] [place] MRP FN [place]/W [address] CARDIAC MRI WI TH AND WITHOUT IV CONTRAST 05/23/2019. CLINICAL INDICATION: Acute systolic heart failure. Abnormal echo. Anterior wall not moving. COMPARISON: Noncontrast chest CT 05/22/2019. ADMINISTERED CONTRAST: 14 mL of MultiHance intravenously. TECHNIQUE: A cardiac MRI was performed before and after the administration of gadolinium. Bright- blood cine imaging was acquired for the assessment of global and regional left ventricular function. T2 Weighted Imaging was performed to assess red cardial edema. Delayed enhancement images were acquired to assess for myoc ardial viability. DISCUSSION: LEFT VENTRICULAR MORPH OLOGY/FUNCTION: Cardiomegaly with multichamber enlargement and dif fuse thinning of the apical septum, mid/apical anterior wall, apex and lat eral apical wall. Akinetic mid and apical anterior wall, a pex, inferior apical and mid/apical lateral wall. Severely hypokinetic to akinetic apical septum. Hypokinetic basal and mid inferior wall with nor mal lateral basal wall motion. Hypokinetic mid and basal septum. The left ventricular ejection fraction and ventricular volumes to be dictated as an addendum report after case post processing. RIGHT V ENTRICLE: Normal right ventricular thickness and systolic/diastolic wall m otion. No fibrofatty infiltration of the right ventricular free wall. VALVULAR FUNCTION: There is no evidence of significant valvular stenosis or regurgitation. PERICARDIUM: No evidence of substantial effusion, thickening or enhancement. T2-WEIGHTED IMAG ING: PAGE 1 Signed Report (CONTINU ED) FAX: Cory Flores NP [place]: St: ADM FAX: Santi De León MD [phone] FAX: Dennys Newell DO Name: MAMIEVANDA HANSEN [facility] : 1960 Age/S: 58/F [address] [place] [address] Blvd Unit #: [id number] Loc: G.[address] [place] [address] Ph ys: Cory Flores NP Acct: [id number] Dis Date: Status: ADM IN PHONE #: [phone] Exam Date: 05/23/20191928 FAX #: [phone] Reason: EF 20% ANTERIOR WALL NOT MOVING EXAMS: CPT CODE: [id number] CAR MRI MRP FN WO/[place] [address] <Continued> No evidence of myocardial edema. DELAYED ENHANCEMENT: Diffusely scarred ventricular apex, mid/anterior apex, inferior apical and apical lateral wall. Approximately 50% thickness delayed enhancement at the ventricular apex and at least 1/3 thickness delayed enhancement invo lving the mid anterior wall, anterior apex, apical septum and lateral apic al wall compatible with nonviable myocardium. Remaining septum, mid/basal lateral wall and basal anterior wall are viable. IMPRESSI ON: 1. Approximately 50% thickness nonviable scar involving the left ventricular apex. 2. At least 1/3 thickness nonviable scar involving the mid anterior wall, anterior apical, apical septum and lateral apex. 3. Fully viable mid/basal septum, mid/basal inferior wall and anterior basal wall. 4. Left ventricular ejection fraction and ventricular volumes to be dictated as an addendum report after case post processing. 5. No visible valvular stenotic or regurgitant jet. 6. No signs of intracardiac thrombus, ventricular hypertrophy or aneurysm. 7. No pericardial thickening or effusion. 8. No significant extracardiac findings. SL: ER-H at 1000 Reported and signed by: Paulo Sherman M.D. CC: Cory Flores NP; Santi Cortés MD; Dennys Aguilar DO Technologist: RT Capo(R)(CT)(MR) Trnscrd Date/Time/By: 05/24/2019 (1000) : By: [email or web address] Orig Print D/T: S: 02/2019 (1003) PAGE 2 Signed Repo rt [id number] 09:59:00* Test Item Value Reference Range Interpretation Comments GLUBED (test code = GLUBED) 202 MG/DL 70-110 H Performed by certified cable machine operator at [facility] [place] [id number] 08:36:00 Name: VANDA HATCH [facility] : 1960 Age/S: 58 / F [address] [place] [address] Blvd Unit #: [id number] Loc: [place] [address] Phys: Marvel Mariee MD Acct: [id number] Dis Date: Status: ADM IN PHONE #: [phone] Exam Date: 05/24/2019820 FAX #: [phone] Reason: COOL EXTREMITY, NUMBNESS EXAMS: CPT CODE: [id number] [place] [id number] Clinical Indication: Cold lower extremity, numbness; Comparison: None TECHNIQUE: Bilateral lower extremity arterial Doppler evaluation with YUKO was performed with benavidez scale, color scale and Doppler waveforms evaluation. FINDINGS: Right brachial: 134 mmHg Left brachial: 131 mmHg RIGHT LOWER EXTREMITY: PT index: Noncompressible DP index: Noncompressible FACILITIES TECHNICIAN: Patent, triphasic waveform. SFA: Patent, triphasic waveform. Popliteal: Patent, biphasic waveform. Posterior tibial: Patent, monophasic waveform. Dorsalis pedis: Patent, dampened monophasic waveform. LEFT LOWER EXTREMITY: PT and DP: Inaudible FACILITIES TECHNICIAN: Patent, Severely dampened parvus tardus monophasic waveform. SFA: No flow. Popliteal: Patent, severely dampened parvus tardus monophasic waveform. Posterior tibial: No flow. Dorsalis pedis: No flow. IMPRESSION: 1. No flow identified within the left SFA, posterior tibial, and dorsalis pedis arteries. Severely dampened and monophasic waveform in the FACILITIES TECHNICIAN is suggestive of inflow disease. 2. Patent left lower extremity arterial vasculature. Noncompressible vessels preclude YUKO calculation. Attempts to contact Dr. Robins were initiated at 0835 hours on 05/24/2019. PAGE 1 Signed Report (CONTINUED) Name: VANDA HATCH [facility] : 1960 Age/S: 58 / F [address] [place] [address] Unit #: [id number] Loc: [place] [address] Phys: Marvel Mariee MD Acct: [id number] Dis Date: Status: ADM IN PHONE #: [phone] Exam Date: 05/24/2019820 FAX #: [phone] Reason: COOL EXTREMITY, NUMBNESS EXAMS: CPT CODE: [id number] [place] [id number] < Continued> SL: [id number] at 0836 Reported and signed by: Leonard Chappell M.D. CC: Santi Cortés MD; Marvel Espinosa MD; Dennys Aguilar DO Technologist: Hermelinda Mercer RDMS(EMIR)(AB); ... Trnscb Date/Time: 05/24/2019 (0836) [email or web address] Orig Print D/T: S: 05/24/2019 (0839) Probe: PAGE 2 Signed Report - DOP ART SGL LEVEL [id number] 08:36:00 Name: VANDA HATCH 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 FINDINGS: Right brachial: 134 mmHg Left brachial: 131 mmHg RIGHT LOWER EXTREMITY: PT index: Noncompressible DP index: Noncompressible FACILITIES TECHNICIAN: Patent, triphasic waveform. SFA: Patent, triphasic waveform. Popliteal: Patent, biphasic waveform. Posterior tibial: Patent, monophasic waveform. Dorsalis pedis: Patent, dampened monophasic waveform. LEFT LOWER EXTREMITY: PT and DP: Inaudible FACILITIES TECHNICIAN: Patent, Severely dampened parvus tardus monophasic waveform. SFA: No flow. Popliteal: Patent, severely dampened parvus tardus monophasic waveform. Posterior tibial: No flow. Dorsalis pedis: No flow. IMPRESSION: 1. No flow identified within the left SFA, posterior tibial, and dorsalis pedis arteries. Severely dampened and monophasic waveform in the FACILITIES TECHNICIAN is suggestive of inflow disease. 2. Patent left lower extremity arterial vasculature. Noncompressible vessels preclude YUKO calculation. Attempts to contact Dr. Robins were initiated at 0835 hours on 05/24/2019. PAGE 1 Signed Report (CONTINUED) Name: VANDA HATCH [facility] : 1960 Age/S: 58 / F [address] [place] [address] Unit #: [id number] Loc: [place] [address] Phys: Tamara Robins NP Acct: [id number] Dis Date: Status: ADM IN PHONE #: [phone] Exam Date: 05/24/2019819 FAX #: [phone] Reason: COOL EXTREMITY, NUMBNESS EXAMS: CPT CODE: [id number] DOP ART SGL LEVEL [place] [address] < Continued> SL: [id number] at 0836 Reported and signed by: Leonard Chappell M.D. CC: Santi Cortés MD; Tamara Robins NP; Marvel Espinosa MD; Dennys Aguilar DO Technologist: Naomie Reyes RDMS(Sam)(BR) Trnscb Date/Time: 05/24/2019 (835) [email or web address] Orig Print D/T: S: 05/24/2019 (0839) Probe: PAGE 2 Signed Report PROCALCITONIN (PCT)2019-05-24 04:11:00* Test Item Value Reference Range Interpretation Comments PROCALCITONIN (PCT) (test code = PROCAL) 0.05 ng/mL 0.00-0.05 N PROCALCITONIN (PCT) NORMAL RANGE (ADULT): <0.05 NG/ML. * a concentration <0.5 ng/mL represents a low risk of severe sepsis and/or septic shock.* a concentration >2 ng/mL represents a high risk of severe sepsis and/or septic shock.Nevertheless, concentrations <0.5 ng/mL do not exclude aninfection, on account of localized infections (withoutsystemic signs) which can be associated with such lowconcentrations, or a systemic infection in its initialstages (< 6 hours). Furthermore, increased procalcitonincan occur without infection. PCT concentrations between 0.5and 2.0 ng/mL should be interpreted taking into account thepatient's history. It is recommended to retest PCT within6-24 hours if any concentrations <2 ng/mL are obtained. BLOOD UREA [id number] 04:01:00* Test Item Value Reference Range Interpretation Comments BLOOD UREA NITROGEN (test code = BUN) 16 mg/dL 7-18 N [id number] 04:01:00* Test Item Value Reference Range Interpretation Comments CREATININE (test code = CREAT) 0.7 mg/dL 0.6-1.3 N [id number] 03:46:00* Test Item Value Reference Range Interpretation Comments GLUBED (test code = GLUBED) 123 MG/DL 70-110 H Performed by certified cable machine operator at [facility] [id number] 21:53:00* Test Item Value Reference Range Interpretation Comments GLUBED (test code = GLUBED) 107 MG/DL 70-110 N Performed by certified cable machine operator at [facility] [id number] 21:52:00* Test Item Value Reference Range Interpretation Comments GLUBED (test code = GLUBED) 102 MG/DL 70-110 N Performed by certified cable machine operator at [facility] COMPREHENSIVE METABOLIC [id number] 15:38:00* Test Item Value Reference Range Interpretation Comments SODIUM (test code = NA) 132 mEq/L 134-147 L POTASSIUM (test code = K) 3.5 mEq/L 3.4-5.0 N CHLORIDE (test code = CL) 97 mEq/L 100-108 L CARBON DIOXIDE (test code = CO2) 30 mEq/L 21-33 N ANION GAP (test code = GAP) 9 0-20 N GLUCOSE (test code = GLU) 118 mg/dL 70-110 H BLOOD UREA NITROGEN (test code = BUN) 15 mg/dL 7-18 N GLOMERULAR FILTRATION RATE (test code = GFR) 73.9 90-95 L Units of measure = ml/min/1.73 m2 CREATININE (test code = CREAT) 0.8 mg/dL 0.6-1.3 N TOTAL PROTEIN (test code = PROT) 8.4 g/dL 6.4-8.2 H ALBUMIN (test code = ALB) 3.50 g/dL 3.4-5.0 N CALCIUM (test code = CA) 9.3 mg/dL 8.0-10.5 N BILIRUBIN TOTAL (test code = BILT) 1.0 MG/DL <1.5 N SGOT/AST (test code = AST) 25 IUnit/L 15-37 N SGPT/ALT (test code = ALT) 21 IUnit/L 15-65 N ALKALINE PHOSPHATASE TOTAL (test code = ALKP) 158 IUnit/L 20-125 H CBC W/AUTO [id number] 15:22:00* Test Item Value Reference Range Interpretation Comments WHITE BLOOD CELL (test code = WBC) 9.71 x10 3/uL 4.5-11.0 N RED BLOOD CELL (test code = RBC) 4.57 x10 6/uL 3.54-5.02 N HEMOGLOBIN (test code = HGB) 12.6 g/dL 11.0-15.0 N HEMATOCRIT (test code = HCT) 39.0 % 33.0-45.0 N MEAN CELL VOLUME (test code = MCV) 85.3 fL 81.0-99.0 N MEAN CELL HGB (test code = MCH) 27.6 pg 27.0-33.0 N MEAN CELL HGB CONCETRATION (test code = MCHC) 32.3 g/dL 33.0-37. 0 L RED CELL DISTRIBUTION WIDTH CV (test code = RDW) 14.1 % 11.5- 14.5 N RED CELL DISTRIBUTION WIDTH SD (test code = RDW-SD) 44.2 fL 37 .0-54.0 N PLATELET COUNT (test code = PLT) 330 x10 3/uL 150-400 N MEAN PLATELET VOLUME (test code = MPV) 10.4 fL 7.0-9.0 H NEUTROPHIL % (test code = NT%) 60.1 % 56.0-77.0 N IMMATURE GRANULOCYTE % (test code = IG%) 0.3 % 0.0-2.0 N LYMPHOCYTE % (test code = LY%) 29.1 % 14.0-32.0 N MONOCYTE % (test code = MO%) 7.1 % 4.8-9.0 N EOSINOPHIL % (test code = EO%) 2.4 % 0.3-3.7 N BASOPHIL % (test code = BA%) 1.0 % 0.0-2.0 N NUCLEATED RBC % (test code = NRBC%) 0.0 % 0-0 N NEUTROPHIL # (test code = NT#) 5.83 x10 3/uL 2.0-7.6 N IMMATURE GRANULOCYTE # (test code = IG#) 0.03 x10 3/uL 0.00-0.03 N LYMPHOCYTE # (test code = LY#) 2.83 x10 3/uL 1.0-3.8 N MONOCYTE # (test code = MO#) 0.69 x10 3/uL 0.1-0.8 N EOSINOPHIL # (test code = EO#) 0.23 x10 3/uL 0.0-0.2 H BASOPHIL # (test code = BA#) 0.10 x10 3/uL 0.0-0.2 N NUCLEATED RBC # (test code = NRBC#) 0.00 x10 3/uL 0.0-0.1 N MANUAL DIFF REQUIRED (test code = MDIFF) NO [id number] 12:47:00* Test Item Value Reference Range Interpretation Comments GLUBED (test code = GLUBED) 32 MG/DL 70-110 L Performed by certified cable machine operator at [facility] [id number] 12:26:00* Test Item Value Reference Range Interpretation Comments GLUBED (test code = GLUBED) 226 MG/DL 70-110 H Performed by certified cable machine operator at [facility] HGBA1C%2019-05-23 11:02:00* Test Item Value Reference Range Interpretation Comments HGBA1C% (test code = HGBA1C%) 8.8 %A1C 4.8-6.0 H COMMENTS: add to am labPROCALCITONIN (PCT)2019-05-23 10:48:00* Test Item Value Reference Range Interpretation Comments PROCALCITONIN (PCT) (test code = PROCAL) < 0.05 ng/mL 0.00-0.05 N PROCALCITONIN (PCT) NORMAL RANGE (ADULT): <0.05 NG/ML. * a concentration <0.5 ng/mL represents a low risk of severe sepsis and/or septic shock.* a concentration >2 ng/mL represents a high risk of severe sepsis and/or septic shock.Nevertheless, concentrations <0.5 ng/mL do not exclude aninfection, on account of localized infections (withoutsystemic signs) which can be associated with such lowconcentrations, or a systemic infection in its initialstages (< 6 hours). Furthermore, increased procalcitonincan occur without infection. PCT concentrations between 0.5and 2.0 ng/mL should be interpreted taking into account thepatient's history. It is recommended to retest PCT within6-24 hours if any concentrations <2 ng/mL are obtained. [id number] 09:37:00* Test Item Value Reference Range Interpretation Comments GLUBED (test code = GLUBED) 231 MG/DL 70-110 H Performed by certified cable machine operator at [facility] [id number] 08:20:00* Test Item Value Reference Range Interpretation Comments GLUBED (test code = GLUBED) 231 MG/DL 70-110 H Performed by certified cable machine operator at [facility] LACTIC [id number] 04:32:00* Test Item Value Reference Range Interpretation Comments LACTIC ACID (test code = LACT) 1.7 mmol/L 0.4-1.9 N [id number] 04:09:00* Test Item Value Reference Range Interpretation Comments GLUBED (test code = GLUBED) 102 MG/DL 70-110 N Performed by certified cable machine operator at [facility] [id number] 00:20:00* Test Item Value Reference Range Interpretation Comments GLUBED (test code = GLUBED) 178 MG/DL 70-110 H Performed by certified cable machine operator at [facility] [id number] 21:53:00* Test Item Value Reference Range Interpretation Comments GLUBED (test code = GLUBED) 361 MG/DL 70-110 H Performed by certified cable machine operator at [facility] [id number] 21:15:00* Test Item Value Reference Range Interpretation Comments GLUBED (test code = GLUBED) 395 MG/DL 70-110 H Performed by certified cable machine operator at [facility] [id number] 17:41:00* Test Item Value Reference Range Interpretation Comments GLUBED (test code = GLUBED) 216 MG/DL 70-110 H Performed by certified cable machine operator at [facility] - DUP VEIN [id number] 17:14:00 Name: VANDA HATCH 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 Pre-CABG evaluation. COMPARISON: None. Multiple ultrasound images of the lower extremities were obtained using grayscale. The examination is performed for venous mapping. All measurements are transverse view. Right lower extremity greater saphenous vein measurements: Upper thigh: 2 mm Mid thigh: 1 mm Distal thigh: 1 mm Proximal calf: 1 mm Mid calf: 1 mm Distal calf: 1 mm Left lower extremity greater saphenous vein measurements: Upper thigh: 3 mm Mid thigh: 2 mm Distal thigh: 1 mm Proximal calf: 1 mm Mid calf: 2 mm Distal calf: 1 mm IMPRESSION: Venous mapping as described above. SL: ROWENA at 1714 Reported and signed by: Smith Edwards M.D. CC: Cory Flores NP; Santi Cortés MD; Dennys Aguilar DO Technologist: Darline Cantor RDMS(AB)(RCT) Trnscb Date/Time: 05/22/2019 (1713) tATREMIO Orig Print D/T: S: 05/22/2019 (1716) Probe: PAGE 1 Signed Report - DUP EXTRACRANIAL [place] 2019-05-22 17:03:00 Name: VANDA HATCH [facility] : 1960 Age/S: 58 / F [address] [place] [address] Bl Unit #: [id number] Loc: [place] [address] Phys: Cory Flores NP Acct: [id number] Dis Date: Status: ADM IN PHONE #: [phone] Exam Date: 05/22/20191657 FAX #: [phone] Reason: PRE CAB EVAL EXAMS: CPT CODE: [id number] DUP EXTRACRANIAL [place] [address]696 PROCEDURE: CAROTID DOPPLER INDICATION: PRE CAB EVAL; 58-year-old female, hypertension, diabetes, hyperlipidemia. COMPARISON: There are no previous relevant studies available for correlation. TECHNIQUE: Benavidez-scale, color Doppler and spectral Doppler of the carotid arteries was performed. Any reported ICA stenoses indirectly reference the distal internal carotid diameter as the denominator for stenosis measurement, utilizing consensus panel criteria. RIGHT: Mild noncalcified plaque in the carotid bifurcation. No visible stenosis. ICA PSV 125 cm/sec CCA PSV 85 cm/sec ICA/CCA ratio 1.5 Vertebral flow is antegrade. LEFT: Mild noncalcified plaque in the carotid bifurcation. No visible stenosis. ICA PSV 92 cm/sec CCA PSV 83 cm/sec ICA/CCA ratio 1.1 Vertebral flow is antegrade. IMPRESSION: 1. RIGHT: ICA stenosis borderline criteria for 50-69 % by velocity criteria. 2. LEFT: ICA stenosis less than 50 % by velocity criteria. End Impression Consensus panel Doppler US criteria for diagnosis of ICA stenosis. Stenosis (%) ICA PSV (cm/sec) ICA/CCA ratio <50 <125 <2.0 50-69 125-230 2.0-4.0 >70 but less than >230 >4.0 near occlusion Near occlusion High, low, or Variable undetectable * PAGE 1 Signed Report (CONTINUED) Name: VANDA CROW [facility] : 1960 Age/S: 58 / F [address] [place] [address] Blvd Unit #: [id number] L oc: [place] [address] Phys: Cory Flores TEXTILE SLITTING MACHINE OPERATOR Acct: [id number] Dis Date: Status: ADM IN PHONE #: [phone] Exam Date: 05/22/2019 165 FAX #: [phone] [place] son: PRE CAB EVAL EXAMS: CPT CODE: [id number] DUP EXTRACRANIAL [place] [address]66 <Continued> FOR INTERNAL CODING PURPOSES ONLY RESULT CODE: DAVID SL: KL-H at 1703 Reported and signed by: Smith Edwards M.D. CC: Cory Flores NP; Santi Cortés MD; Dennys Aguilar DO Technologist: Darline Cantor RDMS(AB)(RCT) Trnscb Date/Time: 05/22/2019 (1702) tARTEMIO Orig Print D/T: S: 05/22/2019 (1705) Probe: PAGE 2 Signed Report - CT CHEST W/O [id number] 16:43:00 Name: VANDA HATCH [facility] : 1960 Age/S: 58 / F [address] [place], [place] [address]vd Unit #: [id number] Loc: [place] [address] Phys: Rolando Flores NP Acct: [id number] Di s Date: Status: ADM IN PHONE #: Exam Date: 05/22/2019 1555 FAX #: Reason: PRE CAB EVAL EXAMS: CPT CODE: [id number] CT CHEST W/O CONTRAST [id number] PROCEDURE: CT CHEST WITHO UT CONTRAST 05/22/2019 INDICATION: Preoperative study for CABG surg antionette. COMPARISON: Chest 2 views 05/18/2019. TECHNIQUE: Noncontrasted helical imaging performed apices through the lung bases with axial and coronal reformations. ADMINISTERED CONTRAST: None. DLP: 179.2 mGy-cm FINDINGS: LUNGS: Clear lungs with old granulom atous disease and mild scattered subpleural platelike atelectasis and or s carring. Mosaic groundglass lung density identified, possibly from congest ion and or mild alveolitis. No bronchiectasis or honeycombing. MEDIASTINUM: Cardiomegaly with severe multivessel coronary atherosclero sis in keeping with history. Normal caliber ascending aorta without signif icant ascending calcification to preclude graft implantation. The arch bra nching vessels are normal in size, albeit incompletely characterized witho ut IV contrast. No pericardial thickening or effusion. Scattered paratrach eal, prevascular and at least right hilar lymph nodes are seen, most conta ining a fatty hilum and measuring up to 10 mm in short axis. UPPER ABDOMEN: No acute upper abdominal findings along the visualized seg ments. Mild aortic and severe celiac, hepatic and splenic atherosclerosis. No abdominal aortic aneurysm along the visualized segments. MUSCULOSKELETAL: Mild smooth thoracic dextroscoliosis without destructive bone lesions. Minimal thoracic spondylosis. IMPRESSION: 1. Cardiomegaly and severe multivessel coronary atherosclerosis in keep ing with history. 2. Normal caliber ascending aorta without significant calcification to preclude graft implantation. 3. Borderline size mediastinal and probably right hilar lymph nodes, of indeterminate sign ificance. 4. Mosaic groundglass lung density bilaterally probably repres enting mild pulmonary vascular congestion and or mild alveolitis. No jose ma or lobar consolidation. 5. No acute upper abdominal findings. PAGE 1 Signed Report (CONTINUED) Name: VANDA HATCH 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 CC: Cory Flores NP; Santi Cortés MD; Dennys Aguilar DO Technologist:Kar Fajardo, RT(R)(CT) CTDI: DLP: Trnscb Date/Time: 05/22/2019 (1642) [email or web address] Orig Print D/T: S: 05/22/2019 (1645) PAGE 2 Signed Report URINALYSIS [id number] 15:59:00* Test Item Value Reference Range Interpretation Comments UA COLOR (test code = COLU) YELLOW YEL/STRAW UA APPEARANCE (test code = APPU) SL CLOUDY CLEAR UA GLUCOSE DIPSTICK (test code = DGLUU) NEGATIVE NEGATIVE UA BILIRUBIN DIPSTICK (test code = BILU) NEGATIVE NEGATIVE UA KETONE DIPSTICK (test code = KETU) TRACE NEGATIVE A UA SPECIFIC GRAVITY (test code = SGU) 1.035 1.005-1.030 H UA BLOOD DIPSTICK (test code = JANN) 2+ NEGATIVE A UA PH DIPSTICK (test code = MAE) 7.0 5.0-7.0 N UA PROTEIN DIPSTICK (test code = PROU) NEGATIVE NEGATIVE UA UROBILINIOGEN DIPSTICK (test code = URO) 0.2 mg/dL 0.2-1.0 UA NITRITE DIPSTICK (test code = SVETLANA) NEGATIVE NEGATIVE UA LEUKOCYTE ESTERASE DIPSTICK (test code = LEUU) 3+ NEGA TIVE A UA RBC (test code = RBCU) 4-10 RBC/HPF 0-3 UA WBC NO REFLEX (test code = WBCUCL) >50 WBC/HPF 0-3 A UA BACTERIA (test code = BACU) TRACE /HPF NONE SEEN UA SQUAMOUS CELLS (test code = SQU) 0-5 /HPF NONE SEEN UA MUCUS (test code = MUCU) TRACE /LPF NONE SEEN [id number] 13:45:00* Test Item Value Reference Range Interpretation Comments GLUBED (test code = GLUBED) 183 MG/DL 70-110 H Performed by certified cable machine operator at [facility] [id number] 07:32:00* Test Item Value Reference Range Interpretation Comments GLUBED (test code = GLUBED) 131 MG/DL 70-110 H Performed by certified cable machine operator at [facility] - XR CHEST 2 [id number] 12:29:00 FAX: Santi De León MD [phone] [place]: St: PRE FAX: Dennys Newell DO [phone] Name: VANDA HATCH [facility] : 1960 Age/S: 58/F [address] [place] [address] Unit #: [id number] Loc: [place] [address] Phys: Santi Cortés MD Acct: [id number] Dis Date: Status: PRE [facility] PHONE #: [phone] Exam Date: 05/18/20191226 FAX #: [phone] Reason: PREOP EXAMS: CPT CODE: [id number] XR CHEST 2 V 46662 EXAM: CHEST TWO VIEW HISTORY: 58-year-old female with systolic heart failure COMPARISON: None. FINDINGS: The lungs are clear. The cardiomediastinal silhouette is mildly prominent. No acute osseous abnormality. IMPRESSION: 1. No acute cardiopulmonary abnormality. SL: [id number] at 1229 Reported and signed by: Carl Perez M.D. CC: Santi Cortés MD; Dennys Aguilar DO Technologist: RT Marita(Ramírez) Trnscrd Date/Time/By: 05/18/2019 (1229) : By: [email or web address] Orig Print D/T: S: 05/18/2019 (3589) PAGE 1 Signed Report BASIC METABOLIC [id number] 12:18:00* Test Item Value Reference Range Interpretation Comments SODIUM (test code = NA) 132 mEq/L 134-147 L POTASSIUM (test code = K) 4.8 mEq/L 3.4-5.0 N CHLORIDE (test code = CL) 92 mEq/L 100-108 L CARBON DIOXIDE (test code = CO2) 30 mEq/L 21-33 N ANION GAP (test code = GAP) 15 0-20 N GLUCOSE (test code = GLU) 457 mg/dL 70-110 HH BLOOD UREA NITROGEN (test code = BUN) 20 mg/dL 7-18 H GLOMERULAR FILTRATION RATE (test code = GFR) 57.1 90-95 L Units of measure = ml/min/1.73 m2 CREATININE (test code = CREAT) 1.0 mg/dL 0.6-1.3 N CALCIUM (test code = CA) 10.2 mg/dL 8.0-10.5 N BASIC METABOLIC [id number] 12:17:00* Test Item Value Reference Range Interpretation Comments SODIUM (test code = NA) 132 mEq/L 134-147 L POTASSIUM (test code = K) 4.8 mEq/L 3.4-5.0 N CHLORIDE (test code = CL) 92 mEq/L 100-108 L CARBON DIOXIDE (test code = CO2) 30 mEq/L 21-33 N ANION GAP (test code = GAP) 15 0-20 N GLUCOSE (test code = GLU) 457 mg/dL 70-110 HH BLOOD UREA NITROGEN (test code = BUN) 20 mg/dL 7-18 H GLOMERULAR FILTRATION RATE (test code = GFR) 90-95 CREATININE (test code = CREAT) mg/dL 0.6-1.3 CALCIUM (test code = CA) 10.2 mg/dL 8.0-10.5 N PROTHROMBIN [id number] 12:12:00* Test Item Value Reference Range Interpretation Comments PROTHROMBIN TIME PATIENT (test code = PTP) 11.8 SECONDS 9.3-12.9 N INTERNATIONAL NORMAL RATIO (test code = INR) 1.1 0.8-1.2 N TARGET INR BY INDICATION Indication INR1. Prophylaxis of venous thrombosis 2.0 - 3.0 (orthopedic surgery), Prophylaxis of venous thrombosis (other than high-risk surgery), Treatment of Deep Vein Thrombosis/Pulmonary Embolism, Prevention of systemic embolism - Tissue heart valves, Acute Myocardial Infarction (to prevent systemic embolism), Valvular heart disease, Atrial Fibrillation, Bileaflet mechanical valve in aortic position.2. Mechanical prosthetic valves (high risk), 2.5 - 3.5 Presence of Lupus Anticoagulant or Antiphospholipid Antibodies, Prevention of systemic embolism - Acute Myocardial Infarction (to prevent recurrent infarct). CBC W/AUTO [id number] 12:05:00* Test Item Value Reference Range Interpretation Comments WHITE BLOOD CELL (test code = WBC) 12.96 x10 3/uL 4.5-11.0 H RED BLOOD CELL (test code = RBC) 5.08 x10 6/uL 3.54-5.02 H HEMOGLOBIN (test code = HGB) 14.1 g/dL 11.0-15.0 N HEMATOCRIT (test code = HCT) 45.4 % 33.0-45.0 H MEAN CELL VOLUME (test code = MCV) 89.4 fL 81.0-99.0 N MEAN CELL HGB (test code = MCH) 27.8 pg 27.0-33.0 N MEAN CELL HGB CONCETRATION (test code = MCHC) 31.1 g/dL 33.0-37. 0 L RED CELL DISTRIBUTION WIDTH CV (test code = RDW) 14.3 % 11.5- 14.5 N RED CELL DISTRIBUTION WIDTH SD (test code = RDW-SD) 46.5 fL 37 .0-54.0 N PLATELET COUNT (test code = PLT) 399 x10 3/uL 150-400 N MEAN PLATELET VOLUME (test code = MPV) 10.6 fL 7.0-9.0 H NEUTROPHIL % (test code = NT%) 68.7 % 56.0-77.0 N IMMATURE GRANULOCYTE % (test code = IG%) 0.3 % 0.0-2.0 N LYMPHOCYTE % (test code = LY%) 22.5 % 14.0-32.0 N MONOCYTE % (test code = MO%) 6.5 % 4.8-9.0 N EOSINOPHIL % (test code = EO%) 1.1 % 0.3-3.7 N BASOPHIL % (test code = BA%) 0.9 % 0.0-2.0 N NUCLEATED RBC % (test code = NRBC%) 0.0 % 0-0 N NEUTROPHIL # (test code = NT#) 8.90 x10 3/uL 2.0-7.6 H IMMATURE GRANULOCYTE # (test code = IG#) 0.04 x10 3/uL 0.00-0.03 H LYMPHOCYTE # (test code = LY#) 2.92 x10 3/uL 1.0-3.8 N MONOCYTE # (test code = MO#) 0.84 x10 3/uL 0.1-0.8 H EOSINOPHIL # (test code = EO#) 0.14 x10 3/uL 0.0-0.2 N BASOPHIL # (test code = BA#) 0.12 x10 3/uL 0.0-0.2 N NUCLEATED RBC # (test code = NRBC#) 0.00 x10 3/uL 0.0-0.1 N MANUAL DIFF REQUIRED (test code = MDIFF) NO
[2019-10-26] MEDS ORDERED: SODIUM CHLORIDE 0.9% 1000ML 1,000 ML IV SCH (18:15)
--- NOTE | 2019-10-26 18:18 | Emergency Department Note ---
History of Present Illnes History of Present Illness Chief Complaint: General Medicine Complaints History of Present Illness This is a 58 year old female presents to the ED for evaluation of R hip pain s/p fall . 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 Any updates have been documented here. Past Medical History Recent Fever: No Clinical Suspicion of Infectio: No New/Unexplained Change in Ment: No Past Medical History: Diabetes, CHF, CAD, Cancer, UTI's Other Medical History: INSULIN PUMP USES WALKER. BILATERAL PVD. LOW BLOOD BP COLON CANCER Past Surgical History: Appendectomy, CABG, PCI, Pacer/AICD, Colon Resection Social History Smoking Cessation: Never Smoker Counseling Performed: No Alcohol Use: None Any Illegal Drug Use: No Physically hurt or threatened: No Other Any Pre-Existing Lines (PICC,: No Review of Systems Review of Systems Constitutional: Reports no symptoms EENTM: Reports no symptoms Cardiovascular: Reports no symptoms Respiratory: Reports no symptoms Gastrointestinal: Reports no symptoms Genitourinary: Reports no symptoms Musculoskeletal: Reports joint pain Integumentary: Reports no symptoms Neurological: Reports no symptoms Psychological: Reports no symptoms Endocrine: Reports no symptoms Hematological/Lymphatic: Reports no symptoms Physical Exam Related Data Allergies: Coded Allergies: No Known Drug Allergies (Verified Allergy, Intermediate, 10/11/07) Triage Vital Signs Vital Signs Date Time Temp Pulse Resp B/P (MAP) Pulse Ox O2 Delivery O2 Flow Rate FiO2 10/26/19 16:49 97.1 74 16 94/61 98 Room Air Vital signs reviewed: Yes Physical Exam CONSTITUTIONAL Constitutional: Present well-developed, Present well-nourished HENT HENT: Present normocephalic, Present atraumatic, Present oropharynx clear/moist, Present nose normal HENT L/R: Present left ext ear normal, Present right ext ear normal EYES Eyes: Reports PERRL, Reports conjunctivae normal NECK Neck: Present ROM normal PULMONARY Pulmonary: Present effort normal, Present breath sounds normal CARDIOVASCULAR Cardiovascular: Present regular rhythm, Present heart sounds normal, Present capillary refill normal, Present normal rate GASTROINTESTINAL Abdominal: Present soft, Present nontender, Present bowel sounds normal GENITOURINARY Genitourinary: Present exam deferred SKIN Skin: Present warm, Present dry MUSCULOSKELETAL Musculoskeletal: Present ROM normal, Present deformity (R hip) NEUROLOGICAL Neurological: Present alert, Present oriented x 3, Present no gross motor or sensory deficits PSYCHOLOGICAL Psychological: Present mood/affect normal, Present judgement normal Results Laboratory Lab results reviewed: Yes Laboratory comments Laboratory Tests Test 10/26/19 19:33 10/26/19 18:45 White Blood Count 14.98 x10e3/uL (4.8-10.8) Red Blood Count 4.11 x10e6/uL (3.6-5.1) Hemoglobin 12.4 g/dL (12.0-16.0) Hematocrit 37.3 % (34.2-44.1) Mean Corpuscular Volume 90.8 fL (81-99) Mean Corpuscular Hemoglobin 30.2 pg (28-32) Mean Corpuscular Hemoglobin Concent 33.2 g/dL (31-35) Red Cell Distribution Width 15.6 % (11.7-14.4) Platelet Count 308 x10e3/uL (140-360) Neutrophils (%) (Auto) 84.0 % (38.7-80.0) Lymphocytes (%) (Auto) 10.8 % (18.0-39.1) Monocytes (%) (Auto) 3.5 % (4.4-11.3) Eosinophils (%) (Auto) 0.5 % (0.0-6.0) Basophils (%) (Auto) 0.5 % (0.0-1.0) Neutrophils # (Auto) 12.6 (2.1-6.9) Lymphocytes # (Auto) 1.6 (1.0-3.2) Monocytes # (Auto) 0.5 (0.2-0.8) Eosinophils # (Auto) 0.1 (0.0-0.4) Basophils # (Auto) 0.1 (0.0-0.1) Absolute Immature Granulocyte (auto 0.10 x10e3/uL (0-0.1) Sodium Level 138 mmol/L (136-145) Potassium Level 3.5 mmol/L (3.5-5.1) Chloride Level 97 mmol/L (98-107) Carbon Dioxide Level 25 mmol/L (22-29) Anion Gap 19.5 mmol/L (8-16) Blood Urea Nitrogen 19 mg/dL (7-26) Creatinine 1.27 mg/dL (0.57-1.11) Estimat Glomerular Filtration Rate 43 ML/MIN (60-) BUN/Creatinine Ratio 15 (6-25) Glucose Level 145 mg/dL (74-118) Calcium Level 9.8 mg/dL (8.4-10.2) Total Bilirubin 1.5 mg/dL (0.2-1.2) Aspartate Amino Transf (AST/SGOT) 20 IU/L (5-34) Alanine Aminotransferase (ALT/SGPT) 13 IU/L (0-55) Alkaline Phosphatase 112 IU/L (40-150) Creatine Kinase 115 IU/L (29-168) Creatine Kinase MB 4.20 ng/mL (0-5.0) Troponin I 0.018 ng/mL (0-0.300) Total Protein 8.2 g/dL (6.5-8.1) Albumin 4.9 g/dL (3.5-5.0) Globulin 3.3 g/dL (2.3-3.5) Albumin/Globulin Ratio 1.5 (0.8-2.0) Imaging Imaging results reviewed: Yes Impressions [place] [id number] Patient Name: VANDA HATCH MR #: [id number] : 1960 Age/Sex: 58/F Req #: [id number] Adm Physician: Ordered by: CHIVO PATE DO Report #: [id number] Location: Room/Bed: Procedure: [id number] DX/HIP RIGHT MIN 4VWS(+/- PELVIS) Exam Date: Exam Time: REPORT STATUS: Signed HIP RIGHT MIN 4VWS(+/- PELVIS) - Multiple views HISTORY: ^FALL COMPARISON: None available. FINDINGS: Bones: There is a mildly displaced fracture of the right femoral neck Osseous alignment is within normal limits. Joints: There are bilateral hip joint space narrowing and bone production compatible with osteoarthritis. Soft tissues: The soft tissues appear unremarkable. IMPRESSION: Mildly displaced fracture of the right femoral neck. Signed by: Naun Nieves MD on 10/26/2019 6:19 PM Dictated By: NAUN NIEVES MD 18 Transcribed By: JESSICA on 10/26/191818 COPY TO: CHIVO PATE DO~ Assessment & Plan Medical Decision Making MDM Diff Dx : sprain, strain, hip dislocation, femur fx. Case d/w with orthopedics and Cardiology. Patient admitted to the service of Dr Sarah Calhoun Assessment & Plan Final Impression: (1) Closed right hip fracture Depart Disposition: ADMITTED Last Vital Signs Date Time Temp Pulse Resp B/P (MAP) Pulse Ox O2 Delivery O2 Flow Rate FiO2 10/26/19 18:12 66 16 100 Room Air 10/26/19 16:49 97.1 Medications in the ED Ondansetron HCl 4 mg Q4H PRN IV NAUSEA AND VOMITING Last administered on 10/26/19 18:59; Admin Dose 4 MG; Start 10/26/19 at 18:15; Stop 11/25/19 at 18:14 Sodium Chloride 1,000 ml @ 125 mls/hr Q8H IV Last administered on 10/26/19 18:59; Admin Dose 125 MLS/HR; Start 10/26/19 at 18:15; Stop 10/26/19 at 20:39; Status DC Morphine Sulfate 4 mg Q4H PRN IV SEVERE PAIN (7-10) Last administered on 10/26/19 18:59; Admin Dose 4 MG; Start 10/26/19 at 18:15; Stop 11/02/19 at 18:14 LORELEI REILLY DO Oct 26, 2019 18:18
--- NOTE | 2019-10-26 18:23 | Diagnostic Imaging Report ---
HIP RIGHT MIN 4VWS(+/- PELVIS) - Multiple views HISTORY: ^FALL COMPARISON: None available. FINDINGS: Bones: There is a mildly displaced fracture of the right femoral neck Osseous alignment is within normal limits. Joints: There are bilateral hip joint space narrowing and bone production compatible with osteoarthritis. Soft tissues: The soft tissues appear unremarkable. IMPRESSION: Mildly displaced fracture of the right femoral neck. Signed by: Naun Quintanilla MD on 10/26/2019 6:19 PM
--- OUTSIDE RECORDS SUMMARY | 2019-10-26 18:32 | XMS REPORT | Continuity of Care Document ---
Author Author [facility] t Organization [facility] Address [address] [place] [address] Phone Unavailable Care Team Providers Care Histologist Technologist Name Role Phone LORELEI REILLY Attphyzaida Unavailable NICOLEELDA Admphys Unavailable Payers Payer Name Policy Type Policy Number Effective Date Expiration Date S ource Problems This patient has no known problems. Allergies, Adverse Reactions, Alerts Allergy Name Allergy Type Status Severity Reaction(s) Onset Date Inacti ve Date Treating Clinician Comments Source No Known Allergies DA Active U 2019-05-22 00:00:00 [facility] No Known Allergies DA Active U 2019-05-18 00:00:00 [facility] Medications This patient has no known medications. Procedures This patient has no known procedures. Results Test Description Test Time Test Comments Results Result Comments Source HIP RIGHT MIN 4VWS(+/- PELVIS) 2019-10-26 18:18:00 [facility] [address] [address] Patient Name: VANDA HATCH MR #: [id number] : 1960 Age/Sex: 58/F Req #: [id number] Adm Physician: Ordered by: CHIVO PATE DO Report #: [id number] Location: ER Room/Bed: Procedure: [id number] DX/HIP RIGHT MIN 4VWS(+/- PELVIS) Exam Date: Exam Time: REPORT STATUS: Signed HIP RIGHT MIN 4VWS(+/- PELVIS) - Multiple views HISTORY: FALL COMPARISON: None available. FINDINGS: Bones: There is a mildly displaced fracture of the right femoral neck Osseous alignment is within normal limits. Joints: There are bilateral hip joint space narrowing and bone production compatible with osteoarthritis. Soft tissues: The soft tissues appear unremarkable. IMPRESSION: Mildly displaced fracture of the right femoral neck. Signed by: Naun Nieves MD on 10/26/2019 6:19 PM Dictated By: NAUN NIEVES MD 18 Transcribed By: JESSICA on 10/26/191818 COPY TO: CHIVO PATE DO - XR CHEST 1 V 2019-09-11 15:18:00 FAX: Dennys Newell DO [phone] [place]: St: [facility] FAX: Marielena Bhandari MD [phone] FAX: Darius Lauren NP [phone] Name: MAMIEVANDA HANSEN [facility] : 1960 Age/S: 58/F [address] [place] [address] Unit #: [id number] Loc: [place] [address] Phys: Darius Lauren NP Acct: [id number] Dis Date: Status: ADM IN PHONE #: [phone] Exam Date: 09/11/2019 1512 FAX #: [phone] Reason: Post PM/ICD EXAMS: CPT CODE: [id number] XR CHEST 1 V 80991 Single view chest: HISTORY: Pacemaker placement. FINDINGS: Leads of a left transvenous defibrillator placed in appropriate position, placed since the comparison study 09/08/2019. The lungs are clear. No pleural effusion or pneumothorax. Patient has had a sternotomy IMPRESSION: Satisfactory left defibrillator placement SL: [id number] at 1518 Reported and signed by: Dex Jimenez M.D. CC: Dennys Aguilar DO; Marielena Duff MD; Darius Lauren NP Technologist: KRISTINA Parrish) Trnscrd Date/Time/By: 09/11/2019 (1517) : By: RodriguezETG Orig Print D/T: S: 09/11/2019 (2610) PAGE 1 Signed Report BASIC METABOLIC PANEL [...] code = CA) 9.4 mg/dL 8.0-10.5 N [id number] 11:54:00* Test Item Value Reference Range Interpretation Comments MAGNESIUM (test code = MAG) 2.60 mg/dL 1.8-2.4 H [id number] 06:38:00* Test Item Value Reference Range Interpretation Comments GLUBED (test code = GLUBED) 101 MG/DL 70-110 N Performed by certified engine lathe set up operator tool at [facility] - XR CHEST 2 [id number] 14:39:00 FAX: Dennys Newell DO [phone] [place]: St: PRE FAX: Marielena Bhandari MD [phone] Name: VANDA HATCH [facility] : 1960 Age/S: 58/F [address] [place] [address] Unit #: [id number] Loc: [place] [address] Phys: Marielena Duff MD Acct: [id number] Dis Date: Status: PRE SDC PHONE #: [phone] Exam Date: 09/08/20191436 FAX #: [phone] Reason: PRE-OP ICD EXAMS: CPT CODE: [id number] XR CHEST 2 V 41451 Two-view chest: HISTORY: Preoperative clearance FINDINGS: Both lungs are clear. No infiltrate or pleural fluid. Heart and mediastinal contour stable from 06/22/2019. The patient has had a sternotomy IMPRESSION: No acute finding SL: [id number] at 1439 Reported and signed by: Dex Jimenez M.D. CC: Dennys Aguilar DO; Marielena Duff MD Technologist: Caitlyn Cervantes, RT(R); Diane Doll, RT(R) Trnscrd Date/Time/By: 09/08/2019 (1439) : By: Fili Orig Print D/T: S: 09/08/2019 (1444) PAGE 1 Signed Report BASIC METABOLIC PANEL [...] CA) 9.9 mg/dL 8.0-10.5 N BASIC METABOLIC [id number] 14:38:00* Test Item Value Reference Range Interpretation [...] = CA) 9.9 mg/dL 8.0-10.5 N PROTHROMBIN [id number] 14:24:00* Test Item Value Reference Range Interpretation [...] Infarction (to prevent recurrent infarct). CBC W/AUTO [id number] 14:18:00* Test Item Value Reference Range Interpretation [...] DIFF REQUIRED (test code = MDIFF) NO [id number] 11:11:00* Test Item Value Reference Range Interpretation Comments GLUBED (test code = GLUBED) 324 MG/DL 70-110 H Performed by certified engine lathe set up operator tool at [facility] [id number] 07:12:00* Test Item Value Reference Range Interpretation Comments GLUBED (test code = GLUBED) 186 MG/DL 70-110 H Performed by certified engine lathe set up operator tool at [facility] [id number] 06:28:00* Test Item Value Reference Range Interpretation Comments GLUBED (test code = GLUBED) 49 MG/DL 70-110 L Performed by certified engine lathe set up operator tool at [facility] [id number] 20:37:00* Test Item Value Reference Range Interpretation Comments GLUBED (test code = GLUBED) 179 MG/DL 70-110 H Performed by certified engine lathe set up operator tool at [facility] [id number] 16:24:00* Test Item Value Reference Range Interpretation Comments GLUBED (test code = GLUBED) 326 MG/DL 70-110 H Performed by certified engine lathe set up operator tool at [facility] - XR SWLW FUNC W/C [id number] 14:13:00 FAX: Silvino Marcos [phone] [place]: St: [facility] FAX: Dennys Newell DO [phone] Name: VNADA HATCH [facility] : 1960 Age/S: 58/F [address] [place] [address] Unit #: [id number] Loc: [place] [address] Phys: Silvino Keller MD Acct: [id number] Dis Date: Status: ADM IN PHONE #: [phone] Exam Date: 06/26/2019 1340 FAX #: [phone] Reason: SENSATION GLOBUS EXAMS: CPT CODE: [id number] XR SWLW FUNC W/C V 07961 Modified barium swallow study HISTORY: Sensation g lobus, reflux. FINDINGS: The study was performed in conjunction [facility] speech therapy. The patient received multiple barium [...] for further informa tion and recommendations. SL: [id number] at 1413 Reported and si gned by: Kris Boles M.D. CC: Silvino Keller; Dennys flores DO Technologist: RT Marita(R) Trnscrd Date/Time/By: 06/26/2019 (141) : By: [email or web address] Orig Print D/T: S: 06/26/2019 (1416) PAGE 1 Signed Report [id number] 10:54:00 * Test Item Value Reference Range Interpretation Comments GLUBED (test code = GLUBED) 325 MG/DL 70-110 H Performed by certified engine lathe set up operator tool at [facility] BASIC METABOLIC [id number] 07:55:00* Test Item Value Reference Range Interpretation [...] code = CA) 9.2 mg/dL 8.0-10.5 N [id number] 07:55:00* Test Item Value Reference Range Interpretation Comments ALBUMIN (test code = ALB) 3.20 g/dL 3.4-5.0 L [id number] 07:55:00* Test Item Value Reference Range Interpretation Comments MAGNESIUM (test code = MAG) 2.20 mg/dL 1.8-2.4 N [id number] 07:55:00* Test Item Value Reference Range Interpretation Comments PREALBUMIN (test code = PREALB) 17.4 mg/dL 16.0-40.0 N CBC W/AUTO [id number] 07:22:00* Test Item Value Reference Range Interpretation [...] DIFF REQUIRED (test code = MDIFF) NO [id number] 05:27:00* Test Item Value Reference Range Interpretation Comments GLUBED (test code = GLUBED) 231 MG/DL 70-110 H Performed by certified engine lathe set up operator tool at [facility] [id number] 21:51:00* Test Item Value Reference Range Interpretation Comments GLUBED (test code = GLUBED) 172 MG/DL 70-110 H Performed by certified engine lathe set up operator tool at [facility] [id number] 17:17:00* Test Item Value Reference Range Interpretation Comments GLUBED (test code = GLUBED) 95 MG/DL 70-110 N Performed by certified engine lathe set up operator tool at [facility] [id number] 16:30:00* Test Item Value Reference Range Interpretation Comments GLUBED (test code = GLUBED) 61 MG/DL 70-110 L Performed by certified engine lathe set up operator tool at [facility] [id number] 16:01:00* Test Item Value Reference Range Interpretation Comments GLUBED (test code = GLUBED) 63 MG/DL 70-110 L Performed by certified engine lathe set up operator tool at [facility] [id number] 11:36:00* Test Item Value Reference Range Interpretation Comments GLUBED (test code = GLUBED) 212 MG/DL 70-110 H Performed by certified engine lathe set up operator tool at [facility] [id number] 06:36:00* Test Item Value Reference Range Interpretation Comments GLUBED (test code = GLUBED) 147 MG/DL 70-110 H Performed by certified engine lathe set up operator tool at [facility] [id number] 20:26:00* Test Item Value Reference Range Interpretation Comments GLUBED (test code = GLUBED) 121 MG/DL 70-110 H Performed by certified engine lathe set up operator tool at [facility] [id number] 16:46:00* Test Item Value Reference Range Interpretation Comments GLUBED (test code = GLUBED) 157 MG/DL 70-110 H Performed by certified engine lathe set up operator tool at [facility] [id number] 10:58:00* Test Item Value Reference Range Interpretation Comments GLUBED (test code = GLUBED) 196 MG/DL 70-110 H Performed by certified engine lathe set up operator tool at [facility] RENAL FUNCTION [id number] 08:00:00* Test Item Value Reference Range Interpretation [...] PHOS) 3.7 MG/DL 2.5-4.9 N BASIC METABOLIC [id number] 07:41:00* Test Item Value Reference Range Interpretation [...] code = CA) 9.4 mg/dL 8.0-10.5 N [id number] 07:41:00* Test Item Value Reference Range Interpretation Comments MAGNESIUM (test code = MAG) 2.40 mg/dL 1.8-2.4 N CBC W/AUTO [id number] 07:40:00* Test Item Value Reference Range Interpretation [...] DIFF REQUIRED (test code = MDIFF) NO [id number] 06:42:00* Test Item Value Reference Range Interpretation Comments GLUBED (test code = GLUBED) 188 MG/DL 70-110 H Performed by certified engine lathe set up operator tool at [facility] [id number] 20:41:00* Test Item Value Reference Range Interpretation Comments GLUBED (test code = GLUBED) 137 MG/DL 70-110 H Performed by certified engine lathe set up operator tool at [facility] [id number] 16:39:00* Test Item Value Reference Range Interpretation Comments GLUBED (test code = GLUBED) 142 MG/DL 70-110 H Performed by certified engine lathe set up operator tool at [facility] [id number] 12:09:00* Test Item Value Reference Range Interpretation Comments GLUBED (test code = GLUBED) 252 MG/DL 70-110 H Performed by certified engine lathe set up operator tool at [facility] [id number] 08:52:00* Test Item Value Reference Range Interpretation Comments GLUBED (test code = GLUBED) 178 MG/DL 70-110 H Performed by certified engine lathe set up operator tool at [facility] RENAL FUNCTION [id number] 08:50:00* Test Item Value Reference Range Interpretation [...] code = PHOS) 3.5 MG/DL 2.5-4.9 N [id number] 06:49:00* Test Item Value Reference Range Interpretation Comments GLUBED (test code = GLUBED) 117 MG/DL 70-110 H Performed by certified engine lathe set up operator tool at [facility] [id number] 21:09:00* Test Item Value Reference Range Interpretation Comments GLUBED (test code = GLUBED) 171 MG/DL 70-110 H Performed by certified engine lathe set up operator tool at [facility] [id number] 16:55:00* Test Item Value Reference Range Interpretation Comments GLUBED (test code = GLUBED) 177 MG/DL 70-110 H Performed by certified engine lathe set up operator tool at [facility] - XR CHEST 1 [id number] 15:44:00 FAX: Silvino Marcos [phone] [place]: St: ADM FAX: Sage AguilarDennys S [phone] Name: VANDA HATCH [facility] : 1960 Age/S: 58/F [address] [place] [address] Unit #: [id number] Loc: [address] [address] Phys: Silvino Keller MD Acct: [id number] Dis Date: Status: ADM IN PHONE #: [phone] Exam Date: 06/22/2019 1539 FAX #: [phone] Reason: CRACKLES L SIDE S/P CABG EXAMS: CPT CODE: [id number] XR CHEST 1 V 70788 FRONTAL CHEST, 06/22/2019 2:36 PM : HISTORY: [...] CC: Silvino Keller; Dennys Aguilar DO Technologist: Desiree Williamson RTLubna) Trnscrd Date/Time/By: 06/22/2019 (7906) : By: [email or web address] Orig Print D/T: S: 06/22/2019 (6321) PAGE 1 Signed Report [id number] 11:21:00 * Test Item Value Reference Range Interpretation Comments GLUBED (test code = GLUBED) 284 MG/DL 70-110 H Performed by certified engine lathe set up operator tool at [facility] [id number] 08:51:00* Test Item Value Reference Range Interpretation Comments GLUBED (test code = GLUBED) 234 MG/DL 70-110 H Performed by certified engine lathe set up operator tool at [facility] [id number] 08:50:00* Test Item Value Reference Range Interpretation Comments GLUBED (test code = GLUBED) 139 MG/DL 70-110 H Performed by certified engine lathe set up operator tool at [facility] [id number] 06:30:00* Test Item Value Reference Range Interpretation Comments GLUBED (test code = GLUBED) 86 MG/DL 70-110 N Performed by certified engine lathe set up operator tool at [facility] [id number] 16:50:00* Test Item Value Reference Range Interpretation Comments GLUBED (test code = GLUBED) 180 MG/DL 70-110 H Performed by certified engine lathe set up operator tool at [facility] RENAL FUNCTION [id number] 08:36:00* Test Item Value Reference Range Interpretation [...] code = PHOS) 4.4 MG/DL 2.5-4.9 N [id number] 07:16:00* Test Item Value Reference Range Interpretation Comments GLUBED (test code = GLUBED) 107 MG/DL 70-110 N Performed by certified engine lathe set up operator tool at [facility] [id number] 00:52:00* Test Item Value Reference Range Interpretation Comments GLUBED (test code = GLUBED) 69 MG/DL 70-110 L Performed by certified engine lathe set up operator tool at [facility] [id number] 20:01:00* Test Item Value Reference Range Interpretation Comments GLUBED (test code = GLUBED) 293 MG/DL 70-110 H Performed by certified engine lathe set up operator tool at [facility] [id number] 17:23:00* Test Item Value Reference Range Interpretation Comments GLUBED (test code = GLUBED) 32 MG/DL 70-110 L Performed by certified engine lathe set up operator tool at [facility] [id number] 17:23:00* Test Item Value Reference Range Interpretation Comments GLUBED (test code = GLUBED) 40 MG/DL 70-110 L Performed by certified engine lathe set up operator tool at [facility] [id number] 17:23:00* Test Item Value Reference Range Interpretation Comments GLUBED (test code = GLUBED) 203 MG/DL 70-110 H Performed by certified engine lathe set up operator tool at [facility] [id number] 17:15:00* Test Item Value Reference Range Interpretation Comments GLUBED (test code = GLUBED) 90 MG/DL 70-110 N Performed by certified engine lathe set up operator tool at [facility] - XR ABDOMEN 1V (KUB)2019-06-20 15:27:00 FAX: Silvino Marcos [phone] [place]: St: ADM FAX: Tamara Robins NP [phone] FAX: Dennys Newell DO [phone] Name: VANDA HATCH [facility] : 1960 Age/S: 58/F [address] [place] [address] Blvd Unit #: [id number] Loc: [address] [address] Phys: Tamara Robins RECORDS TECHNICIAN Acct: [id number] Dis Date: Status: ADM IN ONE #: [phone] Exam Date: 06/20/2019 1506 FAX #: [phone] Reason: NAUSEA AND VOMITTING EXAMS: CPT CODE: [id number] XR ABDOMEN 1V (KUB) 26967 PROCEDURE: ABD OMEN SINGLE VIEW INDICATION: NAUSEA [...] exam with probable progression from 06/09. SL: [id number] Electr onically Signed by Erinn Edwards on 0 at 1527 Reported and signed by: Smith prcie M.D. CC: Silvino Keller; Tamara Robins NP; Dennys Aguilar DO Technologist: KRISTINA Jack) Riley Reyez te/Time/By: 06/20/2019 (8442) : By: JessicaL Orig Print D/T: S: 06/19 (9788) PAGE 1 Signed Report [id number] 14:30:00* Test Item Value Reference Range Interpretation Comments GLUBED (test code = GLUBED) 87 MG/DL 70-110 N Performed by certified engine lathe set up operator tool at [facility] [id number] 13:48:00* Test Item Value Reference Range Interpretation Comments GLUBED (test code = GLUBED) 46 MG/DL 70-110 L Performed by certified engine lathe set up operator tool at [facility] [id number] 12:19:00* Test Item Value Reference Range Interpretation Comments GLUBED (test code = GLUBED) 130 MG/DL 70-110 H Performed by certified engine lathe set up operator tool at [facility] RENAL FUNCTION [id number] 08:16:00* Test Item Value Reference Range Interpretation [...] code = PHOS) 3.8 MG/DL 2.5-4.9 N [id number] 08:16:00* Test Item Value Reference Range Interpretation Comments MAGNESIUM (test code = MAG) 2.50 mg/dL 1.8-2.4 H [id number] 01:21:00* Test Item Value Reference Range Interpretation Comments GLUBED (test code = GLUBED) 217 MG/DL 70-110 H Performed by certified engine lathe set up operator tool at [facility] [id number] 22:29:00* Test Item Value Reference Range Interpretation Comments GLUBED (test code = GLUBED) 150 MG/DL 70-110 H Performed by certified engine lathe set up operator tool at [facility] [id number] 21:50:00* Test Item Value Reference Range Interpretation Comments GLUBED (test code = GLUBED) 82 MG/DL 70-110 N Performed by certified engine lathe set up operator tool at [facility] [id number] 21:28:00* Test Item Value Reference Range Interpretation Comments GLUBED (test code = GLUBED) 59 MG/DL 70-110 L Performed by certified engine lathe set up operator tool at [facility] [id number] 21:12:00* Test Item Value Reference Range Interpretation Comments GLUBED (test code = GLUBED) 61 MG/DL 70-110 L Performed by certified engine lathe set up operator tool at [facility] [id number] 17:27:00* Test Item Value Reference Range Interpretation Comments GLUBED (test code = GLUBED) 87 MG/DL 70-110 N Performed by certified engine lathe set up operator tool at [facility] [id number] 16:46:00* Test Item Value Reference Range Interpretation Comments GLUBED (test code = GLUBED) 68 MG/DL 70-110 L Performed by certified engine lathe set up operator tool at [facility] [id number] 14:45:00* Test Item Value Reference Range Interpretation Comments GLUBED (test code = GLUBED) 190 MG/DL 70-110 H Performed by certified engine lathe set up operator tool at [facility] [id number] 11:24:00* Test Item Value Reference Range Interpretation Comments GLUBED (test code = GLUBED) 359 MG/DL 70-110 H Performed by certified engine lathe set up operator tool at [facility] [id number] 09:29:00* Test Item Value Reference Range Interpretation Comments GLUBED (test code = GLUBED) 173 MG/DL 70-110 H Performed by certified engine lathe set up operator tool at [facility] [id number] 09:28:00* Test Item Value Reference Range Interpretation Comments GLUBED (test code = GLUBED) 30 MG/DL 70-110 L Performed by certified engine lathe set up operator tool at [facility] [id number] 09:27:00* Test Item Value Reference Range Interpretation Comments GLUBED (test code = GLUBED) 29 MG/DL 70-110 L Performed by certified engine lathe set up operator tool at [facility] [id number] 09:27:00* Test Item Value Reference Range Interpretation Comments GLUBED (test code = GLUBED) 33 MG/DL 70-110 L Performed by certified engine lathe set up operator tool at [facility] RENAL FUNCTION [id number] 09:16:00* Test Item Value Reference Range Interpretation [...] code = PHOS) 4.0 MG/DL 2.5-4.9 N [id number] 09:16:00* Test Item Value Reference Range Interpretation Comments MAGNESIUM (test code = MAG) 2.40 mg/dL 1.8-2.4 N [id number] 09:16:00* Test Item Value Reference Range Interpretation Comments PREALBUMIN (test code = PREALB) 13.6 mg/dL 16.0-40.0 L [id number] 06:07:00* Test Item Value Reference Range Interpretation Comments GLUBED (test code = GLUBED) 231 MG/DL 70-110 H Performed by certified engine lathe set up operator tool at [facility] [id number] 20:44:00* Test Item Value Reference Range Interpretation Comments GLUBED (test code = GLUBED) 100 MG/DL 70-110 N Performed by certified engine lathe set up operator tool at [facility] [id number] 16:52:00* Test Item Value Reference Range Interpretation Comments GLUBED (test code = GLUBED) 72 MG/DL 70-110 N Performed by certified engine lathe set up operator tool at [facility] [id number] 14:24:00* Test Item Value Reference Range Interpretation Comments GLUBED (test code = GLUBED) 64 MG/DL 70-110 L Performed by certified engine lathe set up operator tool at [facility] RENAL FUNCTION [id number] 08:00:00* Test Item Value Reference Range Interpretation [...] code = PHOS) 3.4 MG/DL 2.5-4.9 N [id number] 06:37:00* Test Item Value Reference Range Interpretation Comments GLUBED (test code = GLUBED) 200 MG/DL 70-110 H Performed by certified engine lathe set up operator tool at [facility] [id number] 20:19:00* Test Item Value Reference Range Interpretation Comments GLUBED (test code = GLUBED) 141 MG/DL 70-110 H Performed by certified engine lathe set up operator tool at [facility] [id number] 18:04:00* Test Item Value Reference Range Interpretation Comments GLUBED (test code = GLUBED) 111 MG/DL 70-110 H Performed by certified engine lathe set up operator tool at [facility] [id number] 18:04:00* Test Item Value Reference Range Interpretation Comments GLUBED (test code = GLUBED) 55 MG/DL 70-110 L Performed by certified engine lathe set up operator tool at [facility] [id number] 17:01:00* Test Item Value Reference Range Interpretation Comments GLUBED (test code = GLUBED) 57 MG/DL 70-110 L Performed by certified engine lathe set up operator tool at [facility] [id number] 17:01:00* Test Item Value Reference Range Interpretation Comments GLUBED (test code = GLUBED) 47 MG/DL 70-110 L Performed by certified engine lathe set up operator tool at [facility] [id number] 11:23:00* Test Item Value Reference Range Interpretation Comments GLUBED (test code = GLUBED) 243 MG/DL 70-110 H Performed by certified engine lathe set up operator tool at [facility] RENAL FUNCTION [id number] 08:02:00* Test Item Value Reference Range Interpretation [...] code = PHOS) 3.6 MG/DL 2.5-4.9 N [id number] 06:30:00* Test Item Value Reference Range Interpretation Comments GLUBED (test code = GLUBED) 136 MG/DL 70-110 H Performed by certified engine lathe set up operator tool at [facility] [id number] 20:29:00* Test Item Value Reference Range Interpretation Comments GLUBED (test code = GLUBED) 121 MG/DL 70-110 H Performed by certified engine lathe set up operator tool at [facility] [id number] 16:17:00* Test Item Value Reference Range Interpretation Comments GLUBED (test code = GLUBED) 154 MG/DL 70-110 H Performed by certified engine lathe set up operator tool at [facility] [id number] 11:27:00* Test Item Value Reference Range Interpretation Comments GLUBED (test code = GLUBED) 232 MG/DL 70-110 H Performed by certified engine lathe set up operator tool at [facility] BASIC METABOLIC [id number] 11:01:00* Test Item Value Reference Range Interpretation [...] code = CA) 8.3 mg/dL 8.0-10.5 N [id number] 11:01:00* Test Item Value Reference Range Interpretation Comments MAGNESIUM (test code = MAG) 2.40 mg/dL 1.8-2.4 N CBC W/AUTO [id number] 08:17:00* Test Item Value Reference Range Interpretation [...] DIFF REQUIRED (test code = MDIFF) NO [id number] 06:29:00* Test Item Value Reference Range Interpretation Comments GLUBED (test code = GLUBED) 83 MG/DL 70-110 N Performed by certified engine lathe set up operator tool at [facility] [id number] 21:04:00* Test Item Value Reference Range Interpretation Comments GLUBED (test code = GLUBED) 111 MG/DL 70-110 H Performed by certified engine lathe set up operator tool at [facility] [id number] 16:46:00* Test Item Value Reference Range Interpretation Comments GLUBED (test code = GLUBED) 194 MG/DL 70-110 H Performed by certified engine lathe set up operator tool at [facility] [id number] 11:22:00* Test Item Value Reference Range Interpretation Comments GLUBED (test code = GLUBED) 180 MG/DL 70-110 H Performed by certified engine lathe set up operator tool at [facility] BASIC METABOLIC [id number] 08:14:00* Test Item Value Reference Range Interpretation [...] code = CA) 8.7 mg/dL 8.0-10.5 N [id number] 08:14:00* Test Item Value Reference Range Interpretation Comments MAGNESIUM (test code = MAG) 2.30 mg/dL 1.8-2.4 N [id number] 08:09:00* Test Item Value Reference Range Interpretation Comments GLUBED (test code = GLUBED) 106 MG/DL 70-110 N Performed by certified engine lathe set up operator tool at [facility] [id number] 08:09:00* Test Item Value Reference Range Interpretation Comments GLUBED (test code = GLUBED) 38 MG/DL 70-110 L Performed by certified engine lathe set up operator tool at [facility] [id number] 08:07:00* Test Item Value Reference Range Interpretation Comments GLUBED (test code = GLUBED) 31 MG/DL 70-110 L Performed by certified engine lathe set up operator tool at [facility] CBC W/AUTO [id number] 07:47:00* Test Item Value Reference Range Interpretation [...] DIFF REQUIRED (test code = MDIFF) NO [id number] 07:32:00* Test Item Value Reference Range Interpretation Comments GLUBED (test code = GLUBED) 188 MG/DL 70-110 H Performed by certified engine lathe set up operator tool at [facility] [id number] 06:01:00* Test Item Value Reference Range Interpretation Comments GLUBED (test code = GLUBED) 48 MG/DL 70-110 L Performed by certified engine lathe set up operator tool at [facility] [id number] 21:16:00* Test Item Value Reference Range Interpretation Comments GLUBED (test code = GLUBED) 153 MG/DL 70-110 H Performed by certified engine lathe set up operator tool at [facility] [id number] 21:07:00* Test Item Value Reference Range Interpretation Comments GLUBED (test code = GLUBED) 47 MG/DL 70-110 L Performed by certified engine lathe set up operator tool at [facility] [id number] 18:56:00* Test Item Value Reference Range Interpretation Comments GLUBED (test code = GLUBED) 134 MG/DL 70-110 H Performed by certified engine lathe set up operator tool at [facility] [id number] 12:02:00* Test Item Value Reference Range Interpretation Comments GLUBED (test code = GLUBED) 219 MG/DL 70-110 H Performed by certified engine lathe set up operator tool at [facility] [id number] 06:36:00* Test Item Value Reference Range Interpretation Comments GLUBED (test code = GLUBED) 204 MG/DL 70-110 H Performed by certified engine lathe set up operator tool at [facility] [id number] 04:21:00* Test Item Value Reference Range Interpretation Comments GLUBED (test code = GLUBED) 187 MG/DL 70-110 H Performed by certified engine lathe set up operator tool at [facility] [id number] 20:40:00* Test Item Value Reference Range Interpretation Comments GLUBED (test code = GLUBED) 158 MG/DL 70-110 H Performed by certified engine lathe set up operator tool at [facility] [id number] 17:05:00* Test Item Value Reference Range Interpretation Comments GLUBED (test code = GLUBED) 106 MG/DL 70-110 N Performed by certified engine lathe set up operator tool at [facility] [id number] 17:05:00* Test Item Value Reference Range Interpretation Comments GLUBED (test code = GLUBED) 106 MG/DL 70-110 N Performed by certified engine lathe set up operator tool at [facility] [id number] 16:29:00* Test Item Value Reference Range Interpretation Comments GLUBED (test code = GLUBED) 48 MG/DL 70-110 L Performed by certified engine lathe set up operator tool at [facility] [id number] 11:11:00* Test Item Value Reference Range Interpretation Comments GLUBED (test code = GLUBED) 287 MG/DL 70-110 H Performed by certified engine lathe set up operator tool at [facility] CBC W/AUTO [id number] 08:38:00* Test Item Value Reference Range Interpretation [...] (test code = MDIFF) NO COMPREHENSIVE METABOLIC [id number] 08:32:00* Test Item Value Reference Range Interpretation [...] code = ALKP) 536 IUnit/L 20-125 H [id number] 08:32:00* Test Item Value Reference Range Interpretation Comments MAGNESIUM (test code = MAG) 2.40 mg/dL 1.8-2.4 N [id number] 06:52:00* Test Item Value Reference Range Interpretation Comments GLUBED (test code = GLUBED) 245 MG/DL 70-110 H Performed by certified engine lathe set up operator tool at [facility] [id number] 20:52:00* Test Item Value Reference Range Interpretation Comments GLUBED (test code = GLUBED) 139 MG/DL 70-110 H Performed by certified engine lathe set up operator tool at [facility] [id number] 17:58:00* Test Item Value Reference Range Interpretation Comments GLUBED (test code = GLUBED) 122 MG/DL 70-110 H Performed by certified engine lathe set up operator tool at [facility] [id number] 17:38:00* Test Item Value Reference Range Interpretation Comments GLUBED (test code = GLUBED) 137 MG/DL 70-110 H Performed by certified engine lathe set up operator tool at [facility] [id number] 12:43:00* Test Item Value Reference Range Interpretation Comments GLUBED (test code = GLUBED) 450 MG/DL 70-110 H Performed by certified engine lathe set up operator tool at [facility] [id number] 09:05:00* Test Item Value Reference Range Interpretation Comments GLUBED (test code = GLUBED) 422 MG/DL 70-110 H Performed by certified engine lathe set up operator tool at [facility] [id number] 09:04:00* Test Item Value Reference Range Interpretation Comments GLUBED (test code = GLUBED) 258 MG/DL 70-110 H Performed by certified engine lathe set up operator tool at [facility] [id number] 09:00:00* Test Item Value Reference Range Interpretation Comments GLUBED (test code = GLUBED) 42 MG/DL 70-110 L Performed by certified engine lathe set up operator tool at [facility] [id number] 09:00:00* Test Item Value Reference Range Interpretation Comments GLUBED (test code = GLUBED) 37 MG/DL 70-110 L Performed by certified engine lathe set up operator tool at [facility] [id number] 08:16:00* Test Item Value Reference Range Interpretation Comments GLUBED (test code = GLUBED) 406 MG/DL 70-110 H Performed by certified engine lathe set up operator tool at [facility] CBC W/AUTO [id number] 08:14:00* Test Item Value Reference Range Interpretation [...] (test code = MDIFF) NO BASIC METABOLIC [id number] 07:55:00* Test Item Value Reference Range Interpretation [...] code = CA) 8.7 mg/dL 8.0-10.5 N [id number] 07:55:00* Test Item Value Reference Range Interpretation Comments MAGNESIUM (test code = MAG) 2.40 mg/dL 1.8-2.4 N [id number] 06:26:00* Test Item Value Reference Range Interpretation Comments GLUBED (test code = GLUBED) 450 MG/DL 70-110 H Performed by certified engine lathe set up operator tool at [facility] [id number] 00:09:00* Test Item Value Reference Range Interpretation Comments GLUBED (test code = GLUBED) 84 MG/DL 70-110 N Performed by certified engine lathe set up operator tool at [facility] [id number] 16:16:00* Test Item Value Reference Range Interpretation Comments GLUBED (test code = GLUBED) 122 MG/DL 70-110 H Performed by certified engine lathe set up operator tool at [facility] [id number] 12:45:00* Test Item Value Reference Range Interpretation Comments GLUBED (test code = GLUBED) 309 MG/DL 70-110 H Performed by certified engine lathe set up operator tool at [facility] [id number] 09:37:00* Test Item Value Reference Range Interpretation Comments GLUBED (test code = GLUBED) 238 MG/DL 70-110 H Performed by certified engine lathe set up operator tool at [facility] BASIC METABOLIC [id number] 04:18:00* Test Item Value Reference Range Interpretation [...] code = CA) 8.5 mg/dL 8.0-10.5 N [id number] 04:18:00* Test Item Value Reference Range Interpretation Comments MAGNESIUM (test code = MAG) 2.60 mg/dL 1.8-2.4 H CBC W/AUTO [id number] 04:06:00* Test Item Value Reference Range Interpretation [...] DIFF REQUIRED (test code = MDIFF) NO [id number] 21:09:00* Test Item Value Reference Range Interpretation Comments GLUBED (test code = GLUBED) 106 MG/DL 70-110 N Performed by certified engine lathe set up operator tool at [facility] [id number] 18:29:00* Test Item Value Reference Range Interpretation Comments GLUBED (test code = GLUBED) 150 MG/DL 70-110 H Performed by certified engine lathe set up operator tool at [facility] [id number] 12:29:00* Test Item Value Reference Range Interpretation Comments GLUBED (test code = GLUBED) 177 MG/DL 70-110 H Performed by certified engine lathe set up operator tool at [facility] - XR CHEST 1 [id number] 07:08:00 FAX: Elda De León MD [phone] [place]: St: [facility] FAX: Marvel Donato I [phone] FAX: Dennys Newell DO [phone] Name: VANDA HATCH [facility] : 1960 Age/S: 58/F [address] [place] [address] Unit #: [id number] Loc: [place] [address] Phys: Marvel Mariee MD Acct: [id number] Dis Date: Status: ADM IN PHONE #: [phone] Exam Date: 06/10/2019 0645 FAX #: [phone] Reason: COUGHS EXAMS: CPT CODE: [id number] XR CHEST 1 V 45978 CHEST RADIOGRA PH ONE VIEW 06/10/2019 AT [...] pulmonary aeration. 2. Stable postoperative mediastinum. SL: [id number] at 0708 Reported and signed by: Paulo Blackwell M.D. CC: Elda Cortés MD; Marvel Espinosa MD; Dennys Aguilar DO Technologist: Lenora Smart, RT(R); Diane Doll RT(R) Trnraheem D ate/Time/By: 06/10/2019 (0708) : By: [email or web address] Orig Print D/T: S: 05/23 (3644) PAGE 1 Signed Repor t COMPREHENSIVE METABOLIC [id number] 05:04:00 * Test Item Value Reference Range [...] code = ALKP) 445 IUnit/L 20-125 H [id number] 05:04:00* Test Item Value Reference Range Interpretation Comments MAGNESIUM (test code = MAG) 2.50 mg/dL 1.8-2.4 H COMPREHENSIVE METABOLIC [id number] 04:54:00* Test Item Value Reference Range Interpretation [...] TOTAL (test code = ALKP) IUnit/L 20-125 [id number] 04:54:00* Test Item Value Reference Range Interpretation Comments MAGNESIUM (test code = MAG) mg/dL 1.8-2.4 B-TYPE NATRIURETIC [id number] 04:53:00* Test Item Value Reference Range Interpretation Comments B-TYPE NATRIURETIC PEPTIDE (test code = BNP) 1144.4 PG/ML 0-100 H CBC W/MANUAL [id number] 04:46:00* Test Item Value Reference Range Interpretation [...] code = PLTMORPH) LARGE PLATELETS CBC W/MANUAL [id number] 04:25:00* Test Item Value Reference Range Interpretation [...] ESTIMATE (test code = PLTEST) THOUSAND ADEQUATE [id number] 21:15:00* Test Item Value Reference Range Interpretation Comments GLUBED (test code = GLUBED) 103 MG/DL 70-110 N Performed by certified engine lathe set up operator tool at [facility] [id number] 16:39:00* Test Item Value Reference Range Interpretation Comments GLUBED (test code = GLUBED) 306 MG/DL 70-110 H Performed by certified engine lathe set up operator tool at [facility] [id number] 11:52:00* Test Item Value Reference Range Interpretation Comments GLUBED (test code = GLUBED) 281 MG/DL 70-110 H Performed by certified engine lathe set up operator tool at [facility] [id number] 07:57:00* Test Item Value Reference Range Interpretation Comments GLUBED (test code = GLUBED) 173 MG/DL 70-110 H Performed by certified engine lathe set up operator tool at [facility] [id number] 07:00:00* Test Item Value Reference Range Interpretation Comments GLUBED (test code = GLUBED) 85 MG/DL 70-110 N Performed by certified engine lathe set up operator tool at [facility] BASIC METABOLIC [id number] 05:57:00* Test Item Value Reference Range Interpretation [...] code = CA) 8.3 mg/dL 8.0-10.5 N [id number] 05:57:00* Test Item Value Reference Range Interpretation Comments PHOSPHOROUS (test code = PHOS) 2.6 MG/DL 2.5-4.9 N [id number] 05:57:00* Test Item Value Reference Range Interpretation Comments MAGNESIUM (test code = MAG) 2.20 mg/dL 1.8-2.4 N CBC W/AUTO [id number] 05:31:00* Test Item Value Reference Range Interpretation [...] DIFF REQUIRED (test code = MDIFF) NO [id number] 04:28:00* Test Item Value Reference Range Interpretation Comments GLUBED (test code = GLUBED) 67 MG/DL 70-110 L Performed by certified engine lathe set up operator tool at [facility] [id number] 00:35:00* Test Item Value Reference Range Interpretation Comments GLUBED (test code = GLUBED) 142 MG/DL 70-110 H Performed by certified engine lathe set up operator tool at [facility] [id number] 19:59:00* Test Item Value Reference Range Interpretation Comments GLUBED (test code = GLUBED) 177 MG/DL 70-110 H Performed by certified engine lathe set up operator tool at [facility] [id number] 19:17:00* Test Item Value Reference Range Interpretation Comments GLUBED (test code = GLUBED) 197 MG/DL 70-110 H Performed by certified engine lathe set up operator tool at [facility] [id number] 11:47:00* Test Item Value Reference Range Interpretation Comments GLUBED (test code = GLUBED) 215 MG/DL 70-110 H Performed by certified engine lathe set up operator tool at [facility] [id number] 08:40:00* Test Item Value Reference Range Interpretation Comments GLUBED (test code = GLUBED) 37 MG/DL 70-110 L Performed by certified engine lathe set up operator tool at [facility] [id number] 08:40:00* Test Item Value Reference Range Interpretation Comments GLUBED (test code = GLUBED) 26 MG/DL 70-110 L Performed by certified engine lathe set up operator tool at [facility] [id number] 08:40:00* Test Item Value Reference Range Interpretation Comments GLUBED (test code = GLUBED) 24 MG/DL 70-110 L Performed by certified engine lathe set up operator tool at [facility] [id number] 08:40:00* Test Item Value Reference Range Interpretation Comments GLUBED (test code = GLUBED) 26 MG/DL 70-110 L Performed by certified engine lathe set up operator tool at [facility] [id number] 07:59:00* Test Item Value Reference Range Interpretation Comments GLUBED (test code = GLUBED) 150 MG/DL 70-110 H Performed by certified engine lathe set up operator tool at [facility] [id number] 07:04:00* Test Item Value Reference Range Interpretation Comments GLUBED (test code = GLUBED) 172 MG/DL 70-110 H Performed by certified engine lathe set up operator tool at [facility] [id number] 07:04:00* Test Item Value Reference Range Interpretation Comments GLUBED (test code = GLUBED) 304 MG/DL 70-110 H Performed by certified engine lathe set up operator tool at [facility] BASIC METABOLIC [id number] 05:00:00* Test Item Value Reference Range Interpretation [...] CA) 7.9 mg/dL 8.0-10.5 L HEPATIC FUNCTION [id number] 05:00:00* Test Item Value Reference Range Interpretation [...] code = ALKP) 471 IUnit/L 20-125 H [id number] 05:00:00* Test Item Value Reference Range Interpretation Comments MAGNESIUM (test code = MAG) 2.10 mg/dL 1.8-2.4 N BASIC METABOLIC [id number] 04:54:00* Test Item Value Reference Range Interpretation [...] CA) 7.9 mg/dL 8.0-10.5 L HEPATIC FUNCTION [id number] 04:54:00* Test Item Value Reference Range Interpretation Comments TOTAL PROTEIN (test code = PROT) g/dL 6.4-8.2 ALBUMIN (test code = ALB) g/dL 3.4-5.0 BILIRUBIN TOTAL (test code = BILT) MG/DL <1.5 BILIRUBIN DIRECT (test code = BILD) MG/DL 0.0-0.30 SGOT/AST (test code = AST) IUnit/L 15-37 SGPT/ALT (test code = ALT) IUnit/L 15-65 ALKALINE PHOSPHATASE TOTAL (test code = ALKP) IUnit/L 20-125 [id number] 04:54:00* Test Item Value Reference Range Interpretation Comments MAGNESIUM (test code = MAG) mg/dL 1.8-2.4 CBC W/AUTO [id number] 04:46:00* Test Item Value Reference Range Interpretation [...] DIFF REQUIRED (test code = MDIFF) NO [id number] 02:21:00* Test Item Value Reference Range Interpretation Comments GLUBED (test code = GLUBED) 346 MG/DL 70-110 H Performed by certified engine lathe set up operator tool at [facility] [id number] 20:53:00* Test Item Value Reference Range Interpretation Comments GLUBED (test code = GLUBED) 160 MG/DL 70-110 H Performed by certified engine lathe set up operator tool at [facility] [id number] 18:07:00* Test Item Value Reference Range Interpretation Comments GLUBED (test code = GLUBED) 75 MG/DL 70-110 N Performed by certified engine lathe set up operator tool at [facility] [id number] 18:07:00* Test Item Value Reference Range Interpretation Comments GLUBED (test code = GLUBED) 49 MG/DL 70-110 L Performed by certified engine lathe set up operator tool at [facility] [id number] 14:52:00* Test Item Value Reference Range Interpretation Comments GLUBED (test code = GLUBED) 86 MG/DL 70-110 N Performed by certified engine lathe set up operator tool at [facility] [id number] 11:53:00* Test Item Value Reference Range Interpretation Comments GLUBED (test code = GLUBED) 247 MG/DL 70-110 H Performed by certified engine lathe set up operator tool at [facility] [id number] 09:35:00* Test Item Value Reference Range Interpretation Comments GLUBED (test code = GLUBED) 315 MG/DL 70-110 H Performed by certified engine lathe set up operator tool at [facility] [id number] 08:05:00* Test Item Value Reference Range Interpretation Comments GLUBED (test code = GLUBED) 275 MG/DL 70-110 H Performed by certified engine lathe set up operator tool at [facility] [id number] 07:11:00* Test Item Value Reference Range Interpretation Comments MAGNESIUM (test code = MAG) 2.10 mg/dL 1.8-2.4 N COMMENTS: please add to am [id number] 07:05:00* Test Item Value Reference Range Interpretation Comments GLUBED (test code = GLUBED) 217 MG/DL 70-110 H Performed by certified engine lathe set up operator tool at [facility] [id number] 07:05:00* Test Item Value Reference Range Interpretation Comments GLUBED (test code = GLUBED) 151 MG/DL 70-110 H Performed by certified engine lathe set up operator tool at [facility] [id number] 07:05:00* Test Item Value Reference Range Interpretation Comments GLUBED (test code = GLUBED) 466 MG/DL 70-110 H Performed by certified engine lathe set up operator tool at [facility] [id number] 07:05:00* Test Item Value Reference Range Interpretation Comments GLUBED (test code = GLUBED) 561 MG/DL 70-110 H Performed by certified engine lathe set up operator tool at [facility] [id number] 06:57:00* Test Item Value Reference Range Interpretation Comments GLUBED (test code = GLUBED) 262 MG/DL 70-110 H Performed by certified engine lathe set up operator tool at [facility] - XR CHEST 1 [id number] 05:48:00 FAX: Cory Flores NP [place]: St: ADM FAX: Elda De León MD [phone] FAX: Marvel Donato I [phone] FAX: Dennys Newell DO [phone] Name: MAMIEVANDA HEMALATHA [facility] : 1960 Age/S: 58/F [address] [place] [address] Unit #: [id number] Loc: G3 [address] [place] [address] Phys: Cory Flores NP Acct: [id number] Dis Date: Status: ADM IN PHONE #: [phone] Exam D ate: 06/07/2019525 FAX #: [phone] Reason: s /p CABG EXAMS: CPT CODE: [id number] XR CHEST 1 V 00532 Study: - XR CHEST 1 V 06/07/2019 5:00 AM Patient Name: VANDA HATCH MR: [id number] : 1960; Age: 58 years y/o Female [...] Report (CONTINUED) FA X: Cory Flores NP [place]: St: ADM FAX: Elda De León MD [phone] FAX: Marvel Donato I FAX: Dennys Newell DO [phone] Name: VANDA HATCH [facility] : 1960 Age/S: 58 /F [address] [place] [address] Blvd Unit #: [id number] Loc: [address] [place] [address] Phys: Cory Flores NP Acct: [id number] Dis Date: atus: ADM IN PHONE #: [phone] Exam Date : 06/07/2019525 FAX #: [phone] Reason: s/p CABG EXAMS: CPT CODE: [id number] XR CHEST 1 V 65108 <Continued> at 0548 Reported and signed by: Matt Ortiz M.D. CC: Cory Flores NP; Elda Cortés MD; Marvel Espinosa MD; Dennys Aguilar DO Technologist: KRISTINA Daly) Trnscrd Date/Time/By: 06/07/2019 (0548) : By: [email or web address] Orig Print D/T: S: 06/07/2019 (2323) PAGE 2 Signed Report COMPREHENSIVE METABOLIC PANEL [...] ALKP) 571 IUnit/L 20-125 H HEPATIC FUNCTION [id number] 04:52:00* Test Item Value Reference Range Interpretation Comments BILIRUBIN DIRECT (test code = BILD) 0.70 MG/DL 0.0-0.30 H BILIRUBIN INDIRECT (test code = BILIND) 0.80 MG/DL COMPREHENSIVE METABOLIC [id number] 04:47:00* Test Item Value Reference Range Interpretation [...] code = ALKP) IUnit/L 20-125 HEPATIC FUNCTION [id number] 04:47:00* Test Item Value Reference Range Interpretation Comments BILIRUBIN DIRECT (test code = BILD) MG/DL 0.0-0.30 CBC W/AUTO [id number] 04:40:00* Test Item Value Reference Range Interpretation [...] DIFF REQUIRED (test code = MDIFF) NO [id number] 04:40:00* Test Item Value Reference Range Interpretation Comments GLUBED (test code = GLUBED) 56 MG/DL 70-110 L Performed by certified engine lathe set up operator tool at [facility] [id number] 00:57:00* Test Item Value Reference Range Interpretation Comments GLUBED (test code = GLUBED) 223 MG/DL 70-110 H Performed by certified engine lathe set up operator tool at [facility] [id number] 22:40:00* Test Item Value Reference Range Interpretation Comments GLUBED (test code = GLUBED) 87 MG/DL 70-110 N Performed by certified engine lathe set up operator tool at [facility] [id number] 20:21:00* Test Item Value Reference Range Interpretation Comments GLUBED (test code = GLUBED) 65 MG/DL 70-110 L Performed by certified engine lathe set up operator tool at [facility] [id number] 07:58:00* Test Item Value Reference Range Interpretation Comments GLUBED (test code = GLUBED) 296 MG/DL 70-110 H Performed by certified engine lathe set up operator tool at [facility] - XR CHEST 1 [id number] 05:55:00 FAX: Cory Flores NP [place]: St: ADM FAX: Elda De León MD [phone] FAX: Marvel Donato I [phone] FAX: Dennys Newell DO [phone] Name: MAMIEVANDA HANSEN HEMALATHA [facility] : 1960 Age/S: 58/F [address] [place] [address] Unit #: [id number] Loc: G.[address] [place] [address] Phys: Cory Flores NP Acct: [id number] Dis Date: Status: ADM IN PHONE #: [phone] Exam D ate: 06/06/201931 FAX #: [phone] Reason: s /p CABG EXAMS: CPT CODE: [id number] XR CHEST 1 V 79579 Study: - XR CHEST 1 V 06/06/2019 5:00 AM Patient Name: VANDA HATCH MR: [id number] : 1960; Age: 58 years y/o Female [...] Signed Report (CONTINUED) FAX: Cory Flores NP [place]: St: ADM FAX: Elda De León MD FAX: Marvel Donato I [phone] FAX: Denisse Newell DO [phone] Name: VANDA HATCH [facility] : 1960 Age/S: 58/F [address] Unit #: [id number] Loc: G.[address] [place] [address] Phys: Cory Flores NP Acct: [id number] Dis Date: Status: ADM IN PHONE #: [phone] Exam Date: 06/06/2019530 FAX #: [phone] Reason: s/p CABG EXAMS: CPT CODE: [id number] XR CHEST 1 V 73015 < Continued> at 0555 Reported and signed by: Matt Ortiz M.D. CC: Cory Flores NP; Elda Cortés MD; Marvel Espinosa MD; Dennys Aguilar DO Technologist: RT Daly (R) Trnscrd Date/Time/By: 06/06/2019 (0555) : By: [email or web address] Orig Print D/T: S: 06/06/2019 (5150) PAGE 2 Signed Report COMPREHENSIVE METABOLIC [id number] 05:16:00* Test Item Value Reference Range Interpretation [...] ALKP) 547 IUnit/L 20-125 H HEPATIC FUNCTION [id number] 05:16:00* Test Item Value Reference Range Interpretation Comments BILIRUBIN DIRECT (test code = BILD) 0.70 MG/DL 0.0-0.30 H BILIRUBIN INDIRECT (test code = BILIND) 1.40 MG/DL COMPREHENSIVE METABOLIC [id number] 05:10:00* Test Item Value Reference Range Interpretation [...] code = ALKP) IUnit/L 20-125 HEPATIC FUNCTION [id number] 05:10:00* Test Item Value Reference Range Interpretation Comments BILIRUBIN DIRECT (test code = BILD) MG/DL 0.0-0.30 CBC W/AUTO [id number] 04:58:00* Test Item Value Reference Range Interpretation [...] DIFF REQUIRED (test code = MDIFF) NO [id number] 00:25:00* Test Item Value Reference Range Interpretation Comments GLUBED (test code = GLUBED) 290 MG/DL 70-110 H Performed by certified engine lathe set up operator tool at [facility] [id number] 20:21:00* Test Item Value Reference Range Interpretation Comments GLUBED (test code = GLUBED) 314 MG/DL 70-110 H Performed by certified engine lathe set up operator tool at [facility] BASIC METABOLIC [id number] 17:30:00* Test Item Value Reference Range Interpretation [...] code = CA) 8.6 mg/dL 8.0-10.5 N [id number] 17:30:00* Test Item Value Reference Range Interpretation Comments PHOSPHOROUS (test code = PHOS) 3.7 MG/DL 2.5-4.9 N CBC W/AUTO [id number] 17:16:00* Test Item Value Reference Range Interpretation [...] DIFF REQUIRED (test code = MDIFF) NO [id number] 14:23:00* Test Item Value Reference Range Interpretation Comments GLUBED (test code = GLUBED) 33 MG/DL 70-110 L Performed by certified engine lathe set up operator tool at [facility] [id number] 14:23:00* Test Item Value Reference Range Interpretation Comments GLUBED (test code = GLUBED) 33 MG/DL 70-110 L Performed by certified engine lathe set up operator tool at [facility] [id number] 13:00:00* Test Item Value Reference Range Interpretation Comments GLUBED (test code = GLUBED) 120 MG/DL 70-110 H Performed by certified engine lathe set up operator tool at [facility] [id number] 13:00:00* Test Item Value Reference Range Interpretation Comments GLUBED (test code = GLUBED) 86 MG/DL 70-110 N Performed by certified engine lathe set up operator tool at [facility] [id number] 08:56:00* Test Item Value Reference Range Interpretation Comments GLUBED (test code = GLUBED) 103 MG/DL 70-110 N Performed by certified engine lathe set up operator tool at [facility] [id number] 07:44:00* Test Item Value Reference Range Interpretation Comments GLUBED (test code = GLUBED) 284 MG/DL 70-110 H Performed by certified engine lathe set up operator tool at [facility] [id number] 07:43:00* Test Item Value Reference Range Interpretation Comments GLUBED (test code = GLUBED) 38 MG/DL 70-110 L Performed by certified engine lathe set up operator tool at [facility] [id number] 07:43:00* Test Item Value Reference Range Interpretation Comments GLUBED (test code = GLUBED) 19 MG/DL 70-110 L Performed by certified engine lathe set up operator tool at [facility] [id number] 07:43:00* Test Item Value Reference Range Interpretation Comments GLUBED (test code = GLUBED) 61 MG/DL 70-110 L Performed by certified engine lathe set up operator tool at [facility] - XR CHEST 1 [id number] 06:54:00 FAX: Cory Flores NP [place]: GC St: [facility] FAX: Elda De León MD [phone] FAX: Marvel Donato I [phone] FAX: Dennys Newell DO [phone] Name: VANDA HATCH [facility] : 1960 Age/S: 58/F [address] [place] [address] Blvd Unit #: [id number] Loc: G.3 [address] [place] [address] Phys: Cory Flores NP Acct: [id number] Dis Date: Status: ADM IN PHONE #: [phone] Exam D ate: 06/05/2019 0508 FAX #: [phone] Reason: s /p CABG EXAMS: CPT CODE: [id number] XR CHEST 1 V 39518 EXAM: CR, XR 06/05/2019, 0441 hours HISTORY: [...] Marcelino joshi M.D. CC: Cory Flores NP; Elda Cortés MD; Marvel kemp MD; Dennys Aguilar DO Technologist: Kulwinder Layton RT(R) Trnscrd Date/Time/By: 06/05/2019 (0654) : By: [email or web address] Orig Print D/T: S: (0675) PAGE 1 Signed Rep ort CBC W/AUTO [id number] 05:11:00* Test Item Value Reference Range Interpretation [...] REQUIRED (test code = MDIFF) YES WBC [id number] 05:11:00* Test Item Value Reference Range Interpretation [...] = CREN) FEW SCHISTOCYTES (test code = RAMANDEEP) FEW PLATELET ESTIMATE (test code = PLTEST) Adequate THOUSAND ADEQUATE PLATELET MORPHOLOGY (test code = PLTMORPH) LARGE PLATELETS CBC W/AUTO [id number] 05:09:00* Test Item Value Reference Range Interpretation [...] REQUIRED (test code = MDIFF) YES WBC [id number] 05:09:00* Test Item Value Reference Range Interpretation Comments ANISOCYTOSIS (test code = ANISO) PLATELET ESTIMATE (test code = PLTEST) THOUSAND ADEQUATE CBC W/AUTO [id number] 05:09:00* Test Item Value Reference Range Interpretation [...] REQUIRED (test code = MDIFF) YES WBC [id number] 05:09:00* Test Item Value Reference Range Interpretation Comments ANISOCYTOSIS (test code = ANISO) PLATELET ESTIMATE (test code = PLTEST) THOUSAND ADEQUATE COMPREHENSIVE METABOLIC [id number] 05:07:00* Test Item Value Reference Range Interpretation [...] ALKP) 581 IUnit/L 20-125 H COMPREHENSIVE METABOLIC [id number] 05:03:00* Test Item Value Reference Range Interpretation [...] code = ALKP) IUnit/L 20-125 CBC W/AUTO [id number] 04:46:00* Test Item Value Reference Range Interpretation [...] MANUAL DIFF REQUIRED (test code = MDIFF) [id number] 00:13:00* Test Item Value Reference Range Interpretation Comments GLUBED (test code = GLUBED) 143 MG/DL 70-110 H Performed by certified engine lathe set up operator tool at [facility] [id number] 23:47:00* Test Item Value Reference Range Interpretation Comments GLUCOSE (test code = GLU) 68 mg/dL 70-110 L COMMENTS: HYPOGLYCEMIA PROTOCOLCBC W/AUTO [id number] 16:27:00* Test Item Value Reference Range Interpretation [...] DIFF REQUIRED (test code = MDIFF) NO [id number] 16:24:00* Test Item Value Reference Range Interpretation Comments GLUBED (test code = GLUBED) 202 MG/DL 70-110 H Performed by certified engine lathe set up operator tool at [facility] BASIC METABOLIC [id number] 16:20:00* Test Item Value Reference Range Interpretation [...] code = CA) 9.2 mg/dL 8.0-10.5 N [id number] 12:59:00* Test Item Value Reference Range Interpretation Comments GLUBED (test code = GLUBED) 309 MG/DL 70-110 H Performed by certified engine lathe set up operator tool at [facility] [id number] 12:45:00* Test Item Value Reference Range Interpretation Comments GLUBED (test code = GLUBED) 207 MG/DL 70-110 H Performed by certified engine lathe set up operator tool at [facility] [id number] 12:45:00* Test Item Value Reference Range Interpretation Comments GLUBED (test code = GLUBED) 82 MG/DL 70-110 N Performed by certified engine lathe set up operator tool at [facility] - XR CHEST 1 [id number] 07:31:00 FAX: Elda De León MD [phone] [place]: St: ADM FAX: Marvel Donato I [phone] FAX: Dennys Newell DO [phone] FAX: Isabel Weber [phone] Name: VANDA HATCH [facility] : 1960 Age/S: 58/F [address] [place] [address] Unit #: [id number] Loc: [address] [address] Phys: Ann Weber RECORDS TECHNICIAN Acct: [id number] Dis Date: Status: ADM IN PHONE #: [phone] Exam D ate: 06/04/2019 0649 FAX #: [phone] Reason: C ardiac Surgery Post Op EXAMS: CPT CODE: [id number] XR CHEST 1 V 62685 Single view chest: HISTORY: Post cardiac surgery. FINDINGS: Hazy basilar interstitial infiltrate improving compared to 06/03/2019. A small left pleural effusion is decrea sed in volume. The patient is poststernotomy. A right vascular sheath re anthony in place. No pneumothorax. IMPRESSION: Clearing richie g ghulam SL: [id number] Elec tronically Signed by Erinn Jimenez on 06/04/2019 at 0731 Reported and signed by: Dex Jimenez M.D. CC: Elda Cortés MD; Marvel Espinosa MD; Dennys Aguilar DO; Ann rose NP Technologist: Lenora Smart, RT(R ); Diane Doll, RT(R) Trnscrd Date/Time/By: 06/04/2019 (0731) : B y: [email or web address] Orig Print D/T: S: 06/04/2019 (0738) PAGE 1 Signed Report BASIC METABOLIC [id number] 05:44:00* Test Item Value Reference Range Interpretation [...] COMMENTS: please add to am labHEPATIC FUNCTION [id number] 05:44:00* Test Item Value Reference Range Interpretation [...] 20-125 H COMMENTS: please add to am [id number] 05:44:00* Test Item Value Reference Range Interpretation Comments MAGNESIUM (test code = MAG) 2.20 mg/dL 1.8-2.4 N COMMENTS: please add to am labBASIC METABOLIC [id number] 05:39:00* Test Item Value Reference Range Interpretation [...] COMMENTS: please add to am labHEPATIC FUNCTION [id number] 05:39:00* Test Item Value Reference Range Interpretation [...] IUnit/L 20-125 COMMENTS: please add to am [id number] 05:39:00* Test Item Value Reference Range Interpretation Comments MAGNESIUM (test code = MAG) mg/dL 1.8-2.4 COMMENTS: please add to am labCBC W/AUTO [id number] 05:29:00* Test Item Value Reference Range Interpretation [...] REQUIRED (test code = MDIFF) NO CALCIUM [id number] 05:29:00* Test Item Value Reference Range Interpretation Comments CALCIUM IONIZED (test code = SMITH) 1.21 MMOL/L 1.12-1.32 N [id number] 05:15:00* Test Item Value Reference Range Interpretation Comments GLUBED (test code = GLUBED) 52 MG/DL 70-110 L Performed by certified engine lathe set up operator tool at [facility] [id number] 03:53:00* Test Item Value Reference Range Interpretation Comments GLUBED (test code = GLUBED) 99 MG/DL 70-110 N Performed by certified engine lathe set up operator tool at [facility] [id number] 01:35:00* Test Item Value Reference Range Interpretation Comments GLUBED (test code = GLUBED) 171 MG/DL 70-110 H Performed by certified engine lathe set up operator tool at [facility] [id number] 01:35:00* Test Item Value Reference Range Interpretation Comments GLUBED (test code = GLUBED) 190 MG/DL 70-110 H Performed by certified engine lathe set up operator tool at [facility] [id number] 23:46:00* Test Item Value Reference Range Interpretation Comments GLUBED (test code = GLUBED) 191 MG/DL 70-110 H Performed by certified engine lathe set up operator tool at [facility] [id number] 22:02:00* Test Item Value Reference Range Interpretation Comments POTASSIUM (test code = K) 3.1 mEq/L 3.4-5.0 L [id number] 19:28:00* Test Item Value Reference Range Interpretation Comments GLUBED (test code = GLUBED) 136 MG/DL 70-110 H Performed by certified engine lathe set up operator tool at [facility] [id number] 17:52:00* Test Item Value Reference Range Interpretation Comments POTASSIUM (test code = K) 3.3 mEq/L 3.4-5.0 L [id number] 13:34:00* Test Item Value Reference Range Interpretation Comments GLUBED (test code = GLUBED) 290 MG/DL 70-110 H Performed by certified engine lathe set up operator tool at [facility] [id number] 10:09:00* Test Item Value Reference Range Interpretation Comments GLUBED (test code = GLUBED) 215 MG/DL 70-110 H Performed by certified engine lathe set up operator tool at [facility] - XR CHEST 1 [id number] 07:28:00 FAX: Elda De León MD [phone] [place]: St: ADM FAX: Marvel Donato I [phone] FAX: Dennys Newell DO [phone] FAX: Isabel Weber [phone] Name: VANDA HATCH [facility] : 1960 Age/S: 58/F [address] [place] [address] Unit #: [id number] Loc: [address] [address] Phys: Ann Weber RECORDS TECHNICIAN Acct: [id number] Dis Date: Status: ADM IN PHONE #: [phone] Exam D ate: 06/03/2019 0700 FAX #: [phone] Reason: C ardiac Surgery Post Op EXAMS: CPT CODE: [id number] XR CHEST 1 V 99322 Single view chest: HISTORY: Post cardiac surgery. FINDINGS: Perihilar vascular congestion and ba silar atelectatic changes stable. Probable small effusions of blunting ea ch costophrenic angle. No pneumothorax. A right jugular vascular sheath remains in place. Note is made of wire sternotomy sutures. IMPRESSION: Stable exam SL: [id number] at 0728 Reported and signed by: Dex Jimenez M.D. CC: Elda Cortés MD; Marvel Espinosa MD; Dennys Aguilar DO; Ann Burton NP Technologist: Lenora harmon, RT(R); Diane Doll, RT(R) Trnscrd Date/Time/By: 06/03/2019 ( 0728) : By: [email or web address] Orig Print D/T: S: 06/03/2019 (0705) PAGE 1 Signed Report BASIC METABOLIC [id number] 06:11:00* Test Item Value Reference Range Interpretation [...] code = CA) 8.1 mg/dL 8.0-10.5 N [id number] 06:11:00* Test Item Value Reference Range Interpretation Comments MAGNESIUM (test code = MAG) 2.00 mg/dL 1.8-2.4 N CALCIUM [id number] 06:11:00* Test Item Value Reference Range Interpretation Comments CALCIUM IONIZED (test code = SMITH) 1.07 MMOL/L 1.12-1.32 L BASIC METABOLIC [id number] 06:08:00* Test Item Value Reference Range Interpretation [...] code = CA) 8.1 mg/dL 8.0-10.5 N [id number] 06:08:00* Test Item Value Reference Range Interpretation Comments MAGNESIUM (test code = MAG) 2.00 mg/dL 1.8-2.4 N CALCIUM [id number] 06:08:00* Test Item Value Reference Range Interpretation Comments CALCIUM IONIZED (test code = SMITH) 1.07 MMOL/L 1.12-1.32 L BASIC METABOLIC [id number] 05:57:00* Test Item Value Reference Range Interpretation [...] CALCIUM (test code = CA) mg/dL 8.0-10.5 [id number] 05:57:00* Test Item Value Reference Range Interpretation Comments MAGNESIUM (test code = MAG) mg/dL 1.8-2.4 CALCIUM [id number] 05:57:00* Test Item Value Reference Range Interpretation Comments CALCIUM IONIZED (test code = SMITH) 1.07 MMOL/L 1.12-1.32 L CBC W/AUTO [id number] 05:46:00* Test Item Value Reference Range Interpretation [...] DIFF REQUIRED (test code = MDIFF) NO [id number] 05:12:00* Test Item Value Reference Range Interpretation Comments GLUBED (test code = GLUBED) 80 MG/DL 70-110 N Performed by certified engine lathe set up operator tool at [facility] [id number] 00:14:00* Test Item Value Reference Range Interpretation Comments GLUBED (test code = GLUBED) 89 MG/DL 70-110 N Performed by certified engine lathe set up operator tool at [facility] [id number] 19:54:00* Test Item Value Reference Range Interpretation Comments POTASSIUM (test code = K) 3.2 mEq/L 3.4-5.0 L [id number] 19:32:00* Test Item Value Reference Range Interpretation Comments GLUBED (test code = GLUBED) 120 MG/DL 70-110 H Performed by certified engine lathe set up operator tool at [facility] [id number] 15:37:00* Test Item Value Reference Range Interpretation Comments GLUBED (test code = GLUBED) 139 MG/DL 70-110 H Performed by certified engine lathe set up operator tool at [facility] [id number] 13:05:00* Test Item Value Reference Range Interpretation Comments POTASSIUM (test code = K) 3.8 mEq/L 3.4-5.0 N [id number] 11:41:00* Test Item Value Reference Range Interpretation Comments GLUBED (test code = GLUBED) 209 MG/DL 70-110 H Performed by certified engine lathe set up operator tool at [facility] [id number] 07:58:00* Test Item Value Reference Range Interpretation Comments GLUBED (test code = GLUBED) 135 MG/DL 70-110 H Performed by certified engine lathe set up operator tool at [facility] - XR CHEST 1 [id number] 06:53:00 FAX: Elda De León MD [phone] [place]: St: ADM FAX: Marvel Donato I [phone] FAX: Dennys Newell DO [phone] FAX: Isabel Weber [phone] Name: VANDA HATCH [facility] [place] : 1960 Age/S: 58/F [address] [place] [address] Blvd Unit #: [id number] Loc: G.[address] [place] [address], [place] [address] Phys: Ann Weber RECORDS TECHNICIAN Acct: [id number] Dis Date: Status: ADM IN PHONE #: [phone] Exam D ate: 06/02/2019 0539 FAX #: [phone] Reason: C ardiac Surgery Post Op EXAMS: CPT CODE: [id number] XR CHEST 1 V 51216 CLINICAL HISTORY:Cardiac Surgery Post Op COMPARISON:June 01, [...] sign ed by: Joel Bell M.D. CC: Elda Cortés MD; Marvel kemp MD; Dennys Aguilar DO; Ann Weber NP Technologist: RT Addy(Ramírez) Trnscrd Date/Time/By: 06/02/2019 (0653) : By: Giselle Tierney Print D/T: S: 06/02/2019 (0656) PAGE 1 Signed Report BASIC METABOLIC [id number] 05:08:00* Test Item Value Reference Range Interpretation [...] code = CA) 7.7 mg/dL 8.0-10.5 L [id number] 05:08:00* Test Item Value Reference Range Interpretation Comments MAGNESIUM (test code = MAG) 2.10 mg/dL 1.8-2.4 N CALCIUM [id number] 04:53:00* Test Item Value Reference Range Interpretation Comments CALCIUM IONIZED (test code = SMITH) 1.01 MMOL/L 1.12-1.32 L CBC W/AUTO [id number] 04:46:00* Test Item Value Reference Range Interpretation [...] DIFF REQUIRED (test code = MDIFF) NO [id number] 04:15:00* Test Item Value Reference Range Interpretation Comments GLUBED (test code = GLUBED) 99 MG/DL 70-110 N Performed by certified engine lathe set up operator tool at [facility] [id number] 00:53:00* Test Item Value Reference Range Interpretation Comments GLUBED (test code = GLUBED) 72 MG/DL 70-110 N Performed by certified engine lathe set up operator tool at [facility] [id number] 22:01:00* Test Item Value Reference Range Interpretation Comments GLUBED (test code = GLUBED) 96 MG/DL 70-110 N Performed by certified engine lathe set up operator tool at [facility] [id number] 21:33:00* Test Item Value Reference Range Interpretation Comments POTASSIUM (test code = K) 4.0 mEq/L 3.4-5.0 N BASIC METABOLIC [id number] 18:18:00* Test Item Value Reference Range Interpretation [...] CA) 8.0 mg/dL 8.0-10.5 N BASIC METABOLIC [id number] 18:14:00* Test Item Value Reference Range Interpretation [...] code = CA) 8.0 mg/dL 8.0-10.5 N [id number] 16:22:00* Test Item Value Reference Range Interpretation Comments GLUBED (test code = GLUBED) 106 MG/DL 70-110 N Performed by certified engine lathe set up operator tool at [facility] [id number] 14:08:00* Test Item Value Reference Range Interpretation Comments GLUBED (test code = GLUBED) 113 MG/DL 70-110 H Performed by certified engine lathe set up operator tool at [facility] [id number] 11:35:00* Test Item Value Reference Range Interpretation Comments GLUBED (test code = GLUBED) 100 MG/DL 70-110 N Performed by certified engine lathe set up operator tool at [facility] [id number] 08:10:00* Test Item Value Reference Range Interpretation Comments GLUBED (test code = GLUBED) 126 MG/DL 70-110 H Performed by certified engine lathe set up operator tool at [facility] [id number] 08:07:00* Test Item Value Reference Range Interpretation Comments GLUBED (test code = GLUBED) 96 MG/DL 70-110 N Performed by certified engine lathe set up operator tool at [facility] - XR CHEST 1 [id number] 07:58:00 FAX: Elda De León MD [phone] [place]: St: ADM FAX: Marvel Donato I [phone] FAX: Dennys Newell DO [phone] FAX: Isabel Weber [phone] Name: MAMIEVANDA HANSEN [facility] : 1960 Age/S: 58/F [address] [place] [address] Unit #: [id number] Loc: G.[address] [place] [address] Phys: Ann Weber RECORDS TECHNICIAN Acct: [id number] Dis Date: Status: ADM IN PHONE #: [phone] Exam D ate: 06/01/2019 0552 FAX #: [phone] Reason: C ardiac Surgery Post Op EXAMS: CPT CODE: [id number] XR CHEST 1 V 08312 FRONTAL CHEST, 06/01/2019 5:00 AM : HISTORY: [...] stable radiographic appearance of the chest SL: [id number] at 0758 Reported and signed by: Lobo Gamez M.D. CC: Elda Cortés MD; Marvel Espinosa MD; Dennys Aguilar DO; Ann Shipman NP Technologist: RT Addy(Ramírez) Trnscrd Date/Time/By: 0 (0758) : By: [email or web address] Orig Print D/T: S: 06/01/2019 (0801) PAGE 1 Signed Report [id number] 07:44:00* Test Item Value Reference Range Interpretation Comments GLUBED (test code = GLUBED) 165 MG/DL 70-110 H Performed by certified engine lathe set up operator tool at [facility] [id number] 05:54:00* Test Item Value Reference Range Interpretation Comments GLUBED (test code = GLUBED) 106 MG/DL 70-110 N Performed by certified engine lathe set up operator tool at [facility] BASIC METABOLIC [id number] 04:19:00* Test Item Value Reference Range Interpretation [...] mg/dL 8.0-10.5 N COMMENTS: POD #1HEPATIC FUNCTION [id number] 04:19:00* Test Item Value Reference Range Interpretation [...] ALKP) 318 IUnit/L 20-125 H COMMENTS: POD #[id number] 04:19:00* Test Item Value Reference Range Interpretation Comments MAGNESIUM (test code = MAG) 2.30 mg/dL 1.8-2.4 N COMMENTS: POD #1CBC W/AUTO [id number] 04:02:00* Test Item Value Reference Range Interpretation [...] (test code = MDIFF) NO BASIC METABOLIC [id number] 22:59:00* Test Item Value Reference Range Interpretation [...] code = CA) 8.1 mg/dL 8.0-10.5 N [id number] 22:31:00* Test Item Value Reference Range Interpretation Comments GLUBED (test code = GLUBED) 168 MG/DL 70-110 H Performed by certified engine lathe set up operator tool at [facility] [id number] 22:10:00* Test Item Value Reference Range Interpretation Comments GLUBED (test code = GLUBED) 130 MG/DL 70-110 H Performed by certified engine lathe set up operator tool at [facility] ARTERIAL BLOOD [id number] 19:23:00* Test Item Value Reference Range Interpretation [...] = PEEPA) 5 cmH2O Performed by certified engine lathe set up operator tool at [facility] ABG TEMPERATURE (test code = TEMPA) 97.7 F ABG SITE (test code = SITEA) Art line PREDICTED AA GRADIENT (test code = AP) 60 PREDICTED PO2 (test code = OP) 171 a/A RATIO (test code = RATIO) 0.60 TCO2 ARTERIAL (test code = TCO2A) 24 A-A GRADIENT (test code = AAGRADE) 92 ARTERIAL BLOOD [id number] 19:22:00* Test Item Value Reference Range Interpretation [...] = PSABG) 5 cmH2O Performed by certified engine lathe set up operator tool at [facility] ABG TEMPERATURE (test code = TEMPA) 98.1 F ABG SITE (test code = SITEA) Art line PREDICTED AA GRADIENT (test code = AP) 63 PREDICTED PO2 (test code = OP) 181 a/A RATIO (test code = RATIO) 0.61 TCO2 ARTERIAL (test code = TCO2A) 24 A-A GRADIENT (test code = AAGRADE) 95 ARTERIAL BLOOD [id number] 19:21:00* Test Item Value Reference Range Interpretation [...] (test code = TCO2A) 22 BASIC METABOLIC [id number] 17:56:00* Test Item Value Reference Range Interpretation [...] N COMMENTS: Q/8H WHILE ON LASIX DRIP [id number] 17:56:00* Test Item Value Reference Range Interpretation Comments MAGNESIUM (test code = MAG) 2.50 mg/dL 1.8-2.4 H COMMENTS: Q/8H WHILE ON LASIX DRIP [id number] 11:37:00* Test Item Value Reference Range Interpretation Comments GLUBED (test code = GLUBED) 163 MG/DL 70-110 H Performed by certified engine lathe set up operator tool at [facility] [id number] 08:21:00* Test Item Value Reference Range Interpretation Comments GLUBED (test code = GLUBED) 122 MG/DL 70-110 H Performed by certified engine lathe set up operator tool at [facility] [id number] 07:33:00* Test Item Value Reference Range Interpretation Comments GLUBED (test code = GLUBED) 180 MG/DL 70-110 H Performed by certified engine lathe set up operator tool at [facility] [id number] 07:33:00* Test Item Value Reference Range Interpretation Comments GLUBED (test code = GLUBED) 173 MG/DL 70-110 H Performed by certified engine lathe set up operator tool at [facility] [id number] 07:33:00* Test Item Value Reference Range Interpretation Comments GLUBED (test code = GLUBED) 112 MG/DL 70-110 H Performed by certified engine lathe set up operator tool at [facility] [id number] 07:33:00* Test Item Value Reference Range Interpretation Comments GLUBED (test code = GLUBED) 96 MG/DL 70-110 N Performed by certified engine lathe set up operator tool at [facility] [id number] 07:33:00* Test Item Value Reference Range Interpretation Comments GLUBED (test code = GLUBED) 108 MG/DL 70-110 N Performed by certified engine lathe set up operator tool at [facility] [id number] 07:33:00* Test Item Value Reference Range Interpretation Comments GLUBED (test code = GLUBED) 141 MG/DL 70-110 H Performed by certified engine lathe set up operator tool at [facility] [id number] 07:33:00* Test Item Value Reference Range Interpretation Comments GLUBED (test code = GLUBED) 206 MG/DL 70-110 H Performed by certified engine lathe set up operator tool at [facility] - XR CHEST 1 [id number] 07:25:00 FAX: Elda De León MD [phone] [place]: St: ADM FAX: Marvel Donato I [phone] FAX: Dennys Newell DO [phone] FAX: Isabel Weber [phone] Name: VANDA HATCH [facility] : 1960 Age/S: 58/F [address] [place] [address] Unit #: [id number] Loc: G.[address] [place] [address] Phys: Ann Weber RECORDS TECHNICIAN Acct: [id number] Dis Date: Status: ADM IN PHONE #: [phone] Exam D ate: 05/31/2019 0542 FAX #: [phone] Reason: C ardiac Surgery Post Op EXAMS: CPT CODE: [id number] XR CHEST 1 V 92304 XR CHEST 1 VIEW HISTORY: Cardiac Surgery Post Op. COMPARISON: 05/30/2019. FINDINGS: Expiratory semiupright portable exam. Attenuation of the mid to lower richie g field has increased over the last day. Each hemidiaphragm is now obscur ed. Stable tubes noted over the left lower chest. No pneumothorax. IMPRESSION: 1. Expiratory exam with moderate increase of bib asilar opacity over the last day. SL: [id number] Electronically Signed by Erinn Patel on 05/30 at 0725 Reported and signed by: Tano Patel M.D. CC: Elda Cortés MD; Marvel Espinosa MD; Dennys Aguilar DO; Ann Weber NP T echnologist: Kulwinder Layton RT(R) Trnscrd Date /Time/By: 05/31/2019 (724) : By: [email or web address] Orig Print D/T: S: 020 (5056) PAGE 1 Signed Report BASIC METABOLIC [id number] 05:55:00* Test Item Value Reference Range Interpretation [...] mg/dL 8.0-10.5 N COMMENTS: POD #1HEPATIC FUNCTION [id number] 05:55:00* Test Item Value Reference Range Interpretation [...] ALKP) 138 IUnit/L 20-125 H COMMENTS: POD #[id number] 05:55:00* Test Item Value Reference Range Interpretation Comments MAGNESIUM (test code = MAG) 2.20 mg/dL 1.8-2.4 N COMMENTS: POD #1CBC W/AUTO [id number] 05:41:00* Test Item Value Reference Range Interpretation [...] NO COMMENTS: Daily while on HeparinARTERIAL BLOOD [id number] 05:25:00* Test Item Value Reference Range Interpretation [...] (test code = TCO2A) 22 BASIC METABOLIC [id number] 20:49:00* Test Item Value Reference Range Interpretation [...] code = CA) 8.3 mg/dL 8.0-10.5 N [id number] 20:49:00* Test Item Value Reference Range Interpretation Comments PHOSPHOROUS (test code = PHOS) 3.2 MG/DL 2.5-4.9 N [id number] 20:49:00* Test Item Value Reference Range Interpretation Comments MAGNESIUM (test code = MAG) 2.40 mg/dL 1.8-2.4 N [id number] 19:12:00* Test Item Value Reference Range Interpretation Comments GLUBED (test code = GLUBED) 159 MG/DL 70-110 H Performed by certified engine lathe set up operator tool at [facility] BASIC METABOLIC [id number] 17:28:00* Test Item Value Reference Range Interpretation [...] code = CA) 8.3 mg/dL 8.0-10.5 N [id number] 17:28:00* Test Item Value Reference Range Interpretation Comments MAGNESIUM (test code = MAG) 2.60 mg/dL 1.8-2.4 H [id number] 17:14:00* Test Item Value Reference Range Interpretation Comments GLUBED (test code = GLUBED) 170 MG/DL 70-110 H Performed by certified engine lathe set up operator tool at [facility] [id number] 17:14:00* Test Item Value Reference Range Interpretation Comments GLUBED (test code = GLUBED) 108 MG/DL 70-110 N Performed by certified engine lathe set up operator tool at [facility] [id number] 17:14:00* Test Item Value Reference Range Interpretation Comments GLUBED (test code = GLUBED) 96 MG/DL 70-110 N Performed by certified engine lathe set up operator tool at [facility] [id number] 17:14:00* Test Item Value Reference Range Interpretation Comments GLUBED (test code = GLUBED) 126 MG/DL 70-110 H Performed by certified engine lathe set up operator tool at [facility] [id number] 17:14:00* Test Item Value Reference Range Interpretation Comments GLUBED (test code = GLUBED) 152 MG/DL 70-110 H Performed by certified engine lathe set up operator tool at [facility] [id number] 17:14:00* Test Item Value Reference Range Interpretation Comments GLUBED (test code = GLUBED) 195 MG/DL 70-110 H Performed by certified engine lathe set up operator tool at [facility] [id number] 17:14:00* Test Item Value Reference Range Interpretation Comments GLUBED (test code = GLUBED) 217 MG/DL 70-110 H Performed by certified engine lathe set up operator tool at [facility] ARTERIAL BLOOD [id number] 14:43:00* Test Item Value Reference Range Interpretation [...] = PSABG) 5 cmH2O Performed by certified engine lathe set up operator tool at [facility] ABG TEMPERATURE (test code = TEMPA) 98.1 F ABG SITE (test code = SITEA) Art line PREDICTED AA GRADIENT (test code = AP) 63 PREDICTED PO2 (test code = OP) 181 a/A RATIO (test code = RATIO) 0.61 TCO2 ARTERIAL (test code = TCO2A) 24 A-A GRADIENT (test code = AAGRADE) 95 ARTERIAL BLOOD [id number] 14:43:00* Test Item Value Reference Range Interpretation [...] = PEEPA) 5 cmH2O Performed by certified engine lathe set up operator tool at [facility] ABG TEMPERATURE (test code = TEMPA) 97.7 F ABG SITE (test code = SITEA) Art line PREDICTED AA GRADIENT (test code = AP) 60 PREDICTED PO2 (test code = OP) 171 a/A RATIO (test code = RATIO) 0.60 TCO2 ARTERIAL (test code = TCO2A) 24 A-A GRADIENT (test code = AAGRADE) 92 ARTERIAL BLOOD [id number] 14:42:00* Test Item Value Reference Range Interpretation [...] = PEEPA) 5 cmH2O Performed by certified engine lathe set up operator tool at [facility] ABG TEMPERATURE (test code = TEMPA) 97.7 F ABG SITE (test code = SITEA) Art line PREDICTED AA GRADIENT (test code = AP) 60 PREDICTED PO2 (test code = OP) 171 a/A RATIO (test code = RATIO) 0.60 TCO2 ARTERIAL (test code = TCO2A) 24 A-A GRADIENT (test code = AAGRADE) 92 ARTERIAL BLOOD [id number] 14:42:00* Test Item Value Reference Range Interpretation [...] = PEEPA) 5 cmH2O Performed by certified engine lathe set up operator tool at [facility] ABG TEMPERATURE (test code = TEMPA) 97.7 F ABG SITE (test code = SITEA) Art line PREDICTED AA GRADIENT (test code = AP) 60 PREDICTED PO2 (test code = OP) 171 a/A RATIO (test code = RATIO) 0.60 TCO2 ARTERIAL (test code = TCO2A) 24 A-A GRADIENT (test code = AAGRADE) 92 ARTERIAL BLOOD [id number] 14:15:00* Test Item Value Reference Range Interpretation [...] = PSABG) 5 cmH2O Performed by certified engine lathe set up operator tool at [facility] ABG TEMPERATURE (test code = TEMPA) 98.1 F ABG SITE (test code = SITEA) Art line PREDICTED AA GRADIENT (test code = AP) 63 PREDICTED PO2 (test code = OP) 181 a/A RATIO (test code = RATIO) 0.61 TCO2 ARTERIAL (test code = TCO2A) 24 A-A GRADIENT (test code = AAGRADE) 95 PROTHROMBIN [id number] 13:51:00* Test Item Value Reference Range Interpretation [...] Infarction (to prevent recurrent infarct). COMPREHENSIVE METABOLIC [id number] 13:49:00* Test Item Value Reference Range Interpretation [...] code = ALKP) 87 IUnit/L 20-125 N [id number] 13:49:00* Test Item Value Reference Range Interpretation Comments MAGNESIUM (test code = MAG) 2.60 mg/dL 1.8-2.4 H COMPREHENSIVE METABOLIC [id number] 13:43:00* Test Item Value Reference Range Interpretation [...] TOTAL (test code = ALKP) IUnit/L 20-125 [id number] 13:43:00* Test Item Value Reference Range Interpretation Comments MAGNESIUM (test code = MAG) mg/dL 1.8-2.4 CBC W/AUTO [id number] 13:34:00* Test Item Value Reference Range Interpretation [...] DIFF REQUIRED (test code = MDIFF) NO [id number] 13:30:00* Test Item Value Reference Range Interpretation Comments GLUBED (test code = GLUBED) 91 MG/DL 70-110 N Performed by certified engine lathe set up operator tool at [facility] ARTERIAL BLOOD [id number] 12:31:00* Test Item Value Reference Range Interpretation [...] = PSABG) 5 cmH2O Performed by certified engine lathe set up operator tool at [facility] ABG TEMPERATURE (test code = TEMPA) 98.1 F ABG SITE (test code = SITEA) Art line PREDICTED AA GRADIENT (test code = AP) 63 PREDICTED PO2 (test code = OP) 181 a/A RATIO (test code = RATIO) 0.61 TCO2 ARTERIAL (test code = TCO2A) 24 A-A GRADIENT (test code = AAGRADE) 95 ARTERIAL BLOOD [id number] 12:31:00* Test Item Value Reference Range Interpretation [...] = PSABG) 5 cmH2O Performed by certified engine lathe set up operator tool at [facility] ABG TEMPERATURE (test code = TEMPA) 98.1 F ABG SITE (test code = SITEA) Art line PREDICTED AA GRADIENT (test code = AP) 63 PREDICTED PO2 (test code = OP) 181 a/A RATIO (test code = RATIO) 0.61 TCO2 ARTERIAL (test code = TCO2A) 24 A-A GRADIENT (test code = AAGRADE) 95 ARTERIAL BLOOD [id number] 12:31:00* Test Item Value Reference Range Interpretation [...] = PEEPA) 5 cmH2O Performed by certified engine lathe set up operator tool at [facility] ABG TEMPERATURE (test code = TEMPA) 97.7 F ABG SITE (test code = SITEA) Art line PREDICTED AA GRADIENT (test code = AP) 60 PREDICTED PO2 (test code = OP) 171 a/A RATIO (test code = RATIO) 0.60 TCO2 ARTERIAL (test code = TCO2A) 24 A-A GRADIENT (test code = AAGRADE) 92 ARTERIAL BLOOD [id number] 12:31:00* Test Item Value Reference Range Interpretation [...] = PEEPA) 5 cmH2O Performed by certified engine lathe set up operator tool at [facility] ABG TEMPERATURE (test code = TEMPA) 97.7 F ABG SITE (test code = SITEA) Art line PREDICTED AA GRADIENT (test code = AP) 60 PREDICTED PO2 (test code = OP) 171 a/A RATIO (test code = RATIO) 0.60 TCO2 ARTERIAL (test code = TCO2A) 24 A-A GRADIENT (test code = AAGRADE) 92 ARTERIAL BLOOD [id number] 12:29:00* Test Item Value Reference Range Interpretation [...] = PSABG) 5 cmH2O Performed by certified engine lathe set up operator tool at [facility] ABG TEMPERATURE (test code = TEMPA) 98.1 F ABG SITE (test code = SITEA) Art line PREDICTED AA GRADIENT (test code = AP) 63 PREDICTED PO2 (test code = OP) 181 a/A RATIO (test code = RATIO) 0.61 TCO2 ARTERIAL (test code = TCO2A) 24 A-A GRADIENT (test code = AAGRADE) 95 ARTERIAL BLOOD [id number] 12:29:00* Test Item Value Reference Range Interpretation [...] = PEEPA) 5 cmH2O Performed by certified engine lathe set up operator tool at [facility] ABG TEMPERATURE (test code = TEMPA) 97.7 F ABG SITE (test code = SITEA) Art line PREDICTED AA GRADIENT (test code = AP) 60 PREDICTED PO2 (test code = OP) 171 a/A RATIO (test code = RATIO) 0.60 TCO2 ARTERIAL (test code = TCO2A) 24 A-A GRADIENT (test code = AAGRADE) 92 ARTERIAL BLOOD [id number] 12:28:00* Test Item Value Reference Range Interpretation [...] = PSABG) 5 cmH2O Performed by certified engine lathe set up operator tool at [facility] ABG TEMPERATURE (test code = TEMPA) 98.1 F ABG SITE (test code = SITEA) Art line PREDICTED AA GRADIENT (test code = AP) 63 PREDICTED PO2 (test code = OP) 181 a/A RATIO (test code = RATIO) 0.61 TCO2 ARTERIAL (test code = TCO2A) 24 A-A GRADIENT (test code = AAGRADE) 95 ARTERIAL BLOOD [id number] 12:28:00* Test Item Value Reference Range Interpretation [...] = PSABG) 5 cmH2O Performed by certified engine lathe set up operator tool at [facility] ABG TEMPERATURE (test code = TEMPA) 98.1 F ABG SITE (test code = SITEA) Art line PREDICTED AA GRADIENT (test code = AP) 63 PREDICTED PO2 (test code = OP) 181 a/A RATIO (test code = RATIO) 0.61 TCO2 ARTERIAL (test code = TCO2A) 24 A-A GRADIENT (test code = AAGRADE) 95 ARTERIAL BLOOD [id number] 12:28:00* Test Item Value Reference Range Interpretation [...] = PSABG) 5 cmH2O Performed by certified engine lathe set up operator tool at [facility] ABG TEMPERATURE (test code = TEMPA) 98.1 F ABG SITE (test code = SITEA) Art line PREDICTED AA GRADIENT (test code = AP) 63 PREDICTED PO2 (test code = OP) 181 a/A RATIO (test code = RATIO) 0.61 TCO2 ARTERIAL (test code = TCO2A) 24 A-A GRADIENT (test code = AAGRADE) 95 ARTERIAL BLOOD [id number] 12:28:00* Test Item Value Reference Range Interpretation [...] = PEEPA) 5 cmH2O Performed by certified engine lathe set up operator tool at [facility] ABG TEMPERATURE (test code = TEMPA) 97.7 F ABG SITE (test code = SITEA) Art line PREDICTED AA GRADIENT (test code = AP) 60 PREDICTED PO2 (test code = OP) 171 a/A RATIO (test code = RATIO) 0.60 TCO2 ARTERIAL (test code = TCO2A) 24 A-A GRADIENT (test code = AAGRADE) 92 ARTERIAL BLOOD [id number] 12:28:00* Test Item Value Reference Range Interpretation [...] = PEEPA) 5 cmH2O Performed by certified engine lathe set up operator tool at [facility] ABG TEMPERATURE (test code = TEMPA) 97.7 F ABG SITE (test code = SITEA) Art line PREDICTED AA GRADIENT (test code = AP) 60 PREDICTED PO2 (test code = OP) 171 a/A RATIO (test code = RATIO) 0.60 TCO2 ARTERIAL (test code = TCO2A) 24 A-A GRADIENT (test code = AAGRADE) 92 ARTERIAL BLOOD [id number] 12:28:00* Test Item Value Reference Range Interpretation [...] = PEEPA) 5 cmH2O Performed by certified engine lathe set up operator tool at [facility] ABG TEMPERATURE (test code = TEMPA) 97.7 F ABG SITE (test code = SITEA) Art line PREDICTED AA GRADIENT (test code = AP) 60 PREDICTED PO2 (test code = OP) 171 a/A RATIO (test code = RATIO) 0.60 TCO2 ARTERIAL (test code = TCO2A) 24 A-A GRADIENT (test code = AAGRADE) 92 [id number] 12:09:00* Test Item Value Reference Range Interpretation Comments GLUBED (test code = GLUBED) 89 MG/DL 70-110 N Performed by certified engine lathe set up operator tool at [facility] [id number] 12:09:00* Test Item Value Reference Range Interpretation Comments GLUBED (test code = GLUBED) 49 MG/DL 70-110 L Performed by certified engine lathe set up operator tool at [facility] ARTERIAL BLOOD [id number] 12:02:00* Test Item Value Reference Range Interpretation [...] = PSABG) 5 cmH2O Performed by certified engine lathe set up operator tool at [facility] ABG TEMPERATURE (test code = TEMPA) 98.1 F ABG SITE (test code = SITEA) Art line PREDICTED AA GRADIENT (test code = AP) 63 PREDICTED PO2 (test code = OP) 181 a/A RATIO (test code = RATIO) 0.61 TCO2 ARTERIAL (test code = TCO2A) 24 A-A GRADIENT (test code = AAGRADE) 95 ARTERIAL BLOOD [id number] 12:02:00* Test Item Value Reference Range Interpretation [...] = PSABG) 5 cmH2O Performed by certified engine lathe set up operator tool at [facility] ABG TEMPERATURE (test code = TEMPA) 98.1 F ABG SITE (test code = SITEA) Art line PREDICTED AA GRADIENT (test code = AP) 63 PREDICTED PO2 (test code = OP) 181 a/A RATIO (test code = RATIO) 0.61 TCO2 ARTERIAL (test code = TCO2A) 24 A-A GRADIENT (test code = AAGRADE) 95 ARTERIAL BLOOD [id number] 12:02:00* Test Item Value Reference Range Interpretation [...] = PEEPA) 5 cmH2O Performed by certified engine lathe set up operator tool at [facility] ABG TEMPERATURE (test code = TEMPA) 97.7 F ABG SITE (test code = SITEA) Art line PREDICTED AA GRADIENT (test code = AP) 60 PREDICTED PO2 (test code = OP) 171 a/A RATIO (test code = RATIO) 0.60 TCO2 ARTERIAL (test code = TCO2A) 24 A-A GRADIENT (test code = AAGRADE) 92 HGB [id number] 08:59:00* Test Item Value Reference Range Interpretation Comments HEMOGLOBIN (test code = HGB) 7.3 g/dL 11.0-15.0 L HEMATOCRIT (test code = HCT) 23.0 % 33.0-45.0 L [id number] 08:51:00* Test Item Value Reference Range Interpretation Comments GLUBED (test code = GLUBED) 115 MG/DL 70-110 H Performed by certified engine lathe set up operator tool at [facility] - XR CHEST 1 [id number] 08:09:00 FAX: Elda De León MD [phone] [place]: St: ADM FAX: Marvel Donato I [phone] FAX: Dennys Newell DO [phone] FAX: Isabel Weber [phone] Name: VANDA HATCH [facility] : 1960 Age/S: 58/F [address] [place] [address] Unit #: [id number] Loc: [address] [address] Phys: Ann Weber RECORDS TECHNICIAN Acct: [id number] Dis Date: Status: ADM IN PHONE #: [phone] Exam D ate: 05/30/2019 0544 FAX #: [phone] Reason: C ardiac Surgery Post Op EXAMS: CPT CODE: [id number] XR CHEST 1 V 35269 Single view chest: HISTORY: Post cardiac surgery. FINDINGS: Left chest tube, right [place]-Huma cat heter and mediastinal drain in stable position compared with 05/29/2019. The patient has been extubated. Hazy vascular congestion in each lung and min imal basilar atelectasis stable. No pneumothorax. The heart and mediastin al contours are stable. IMPRESSION: Stable exam following extubation SL: [id number] E lectronically Signed by Erinn Jimenez on 05/30/2019 at 0809 Reported and signed by: Dex Jimenez M.D. CC: Elda Cortés MD; Marvel Espinosa MD; Dennys Aguilar DO; Ann bernstein NP Technologist: Ramírez Daly) Trnscrd Date/Time/By: 05/30/2019 (808) : By: RodriguezETG Orig Print D/T: S: 05/30/2019 (811) PAGE 1 Signed Report [id number] 07:40:00* Test Item Value Reference Range Interpretation Comments GLUBED (test code = GLUBED) 101 MG/DL 70-110 N Performed by certified engine lathe set up operator tool at [facility] [id number] 07:40:00* Test Item Value Reference Range Interpretation Comments GLUBED (test code = GLUBED) 88 MG/DL 70-110 N Performed by certified engine lathe set up operator tool at [facility] [id number] 07:37:00* Test Item Value Reference Range Interpretation Comments GLUBED (test code = GLUBED) 219 MG/DL 70-110 H Performed by certified engine lathe set up operator tool at [facility] LACTIC ACID 2ND [id number] 06:18:00* Test Item Value Reference Range Interpretation Comments LACTIC ACID 2ND REPEAT (test code = LACT2) 3.2 mmol/L 0.4-1.9 H BASIC METABOLIC [id number] 04:41:00* Test Item Value Reference Range Interpretation [...] mg/dL 8.0-10.5 L COMMENTS: POD #1HEPATIC FUNCTION [id number] 04:41:00* Test Item Value Reference Range Interpretation [...] ALKP) 75 IUnit/L 20-125 N COMMENTS: POD #[id number] 04:41:00* Test Item Value Reference Range Interpretation Comments MAGNESIUM (test code = MAG) 2.10 mg/dL 1.8-2.4 N COMMENTS: POD #1CBC W/AUTO [id number] 04:28:00* Test Item Value Reference Range Interpretation [...] NO COMMENTS: Daily while on HeparinLACTIC ACID [id number] 03:06:00* Test Item Value Reference Range Interpretation Comments LACTIC ACID REPEAT (test code = LACTR) 3.1 mmol/l 0.4-1.9 H LACTIC [id number] 00:37:00* Test Item Value Reference Range Interpretation Comments LACTIC ACID (test code = LACT) 4.3 mmol/L 0.4-1.9 [id number] 23:19:00* Test Item Value Reference Range Interpretation Comments GLUBED (test code = GLUBED) 219 MG/DL 70-110 H Performed by certified engine lathe set up operator tool at [facility] [id number] 23:19:00* Test Item Value Reference Range Interpretation Comments GLUBED (test code = GLUBED) 112 MG/DL 70-110 H Performed by certified engine lathe set up operator tool at [facility] [id number] 23:19:00* Test Item Value Reference Range Interpretation Comments GLUBED (test code = GLUBED) 72 MG/DL 70-110 N Performed by certified engine lathe set up operator tool at [facility] [id number] 23:19:00* Test Item Value Reference Range Interpretation Comments GLUBED (test code = GLUBED) 83 MG/DL 70-110 N Performed by certified engine lathe set up operator tool at [facility] [id number] 23:19:00* Test Item Value Reference Range Interpretation Comments GLUBED (test code = GLUBED) 118 MG/DL 70-110 H Performed by certified engine lathe set up operator tool at [facility] [id number] 23:19:00* Test Item Value Reference Range Interpretation Comments GLUBED (test code = GLUBED) 57 MG/DL 70-110 L Performed by certified engine lathe set up operator tool at [facility] [id number] 23:19:00* Test Item Value Reference Range Interpretation Comments GLUBED (test code = GLUBED) 168 MG/DL 70-110 H Performed by certified engine lathe set up operator tool at [facility] [id number] 23:19:00* Test Item Value Reference Range Interpretation Comments GLUBED (test code = GLUBED) 114 MG/DL 70-110 H Performed by certified engine lathe set up operator tool at [facility] [id number] 23:19:00* Test Item Value Reference Range Interpretation Comments GLUBED (test code = GLUBED) 77 MG/DL 70-110 N Performed by certified engine lathe set up operator tool at [facility] [id number] 23:19:00* Test Item Value Reference Range Interpretation Comments GLUBED (test code = GLUBED) 60 MG/DL 70-110 L Performed by certified engine lathe set up operator tool at [facility] LACTIC ACID 2ND [id number] 19:16:00* Test Item Value Reference Range Interpretation Comments LACTIC ACID 2ND REPEAT (test code = LACT2) 5.3 mmol/L 0.4-1.9 LACTIC ACID [id number] 16:36:00* Test Item Value Reference Range Interpretation Comments LACTIC ACID REPEAT (test code = LACTR) 4.6 mmol/l 0.4-1.9 HH - XR CHEST 1 [id number] 15:09:00 FAX: Elda De León MD [phone] [place]: St: ADM FAX: Marvel Donato I [phone] FAX: Dennys Newell DO [phone] FAX: Isabel Weber [phone] Name: VANDA HATCHZABETH [facility] : 1960 Age/S: 58/F [address] [place] [address] Unit #: [id number] Loc: [address] [address] Phys: Ann Weber RECORDS TECHNICIAN Acct: [id number] Dis Date: Status: ADM IN PHONE #: [phone] Exam D ate: 05/29/2019 1505 FAX #: [phone] Reason: C ardiac Surgery Post Op EXAMS: CPT CODE: [id number] XR CHEST 1 V 54150 SINGLE VIEW RADIOGRAPH CHEST I NDICATION: Cardiac [...] rminates 7 cm above the willie. at 0877 * * Reported and signed by: Montana Goldman D.O. PAGE 1 Signed Report (CONTINUED) FAX: Elda De León MD [phone] [place]: St: ADM FAX: Marvel Coffey I [phone] FAX: Dennys Newell DO [phone] F AX: Isabel Weber [phone] Name: MAMIEVANDA HEMALATHA [facility] : 1960 Age/S: 58/F [address] [place] [address] Unit #: [id number] Loc: G.[address] [place] [address] Phys: Ann Weber RECORDS TECHNICIAN Acct: [id number] Dis Date: Status: ADM IN PHONE #: [phone] Exam Date: 07/2019 1505 FAX #: [phone] Reason: Cardiac Surge ry Post Op EXAMS: CPT CODE: [id number] XR CHEST 1 V 7 1045 <Continued> CC: Elda Cortés MD; Marvel Espinosa MD; Dennys Aguilar DO; Ann Scherer NP Technologist: RT Marita(R) Trnscrd Date/Time/By: 05/29/2019 (1501) : By: [id number] Orig Print D/T: S: 05/29/2019 (7468) PAGE 2 Signed Report ARTERIAL BLOOD [id number] 14:41:00* Test Item Value Reference Range Interpretation [...] = PSABG) 5 cmH2O Performed by certified engine lathe set up operator tool at [facility] ABG TEMPERATURE (test code = TEMPA) 98.1 F ABG SITE (test code = SITEA) Art line PREDICTED AA GRADIENT (test code = AP) 63 PREDICTED PO2 (test code = OP) 181 a/A RATIO (test code = RATIO) 0.61 TCO2 ARTERIAL (test code = TCO2A) 24 A-A GRADIENT (test code = AAGRADE) 95 PROTHROMBIN [id number] 14:17:00* Test Item Value Reference Range Interpretation [...] prevent recurrent infarct). COMMENTS: On arrivalTHROMBOPLASTIN TIME [id number] 14:17:00* Test Item Value Reference Range Interpretation Comments THROMBOPLASTIN TIME PARTIAL (test code = PTT) 32.9 Seconds 25.0-39. 5 N Therapeutic Range: 50.4 - 88.3 Seconds Effective 06/07/2018 COMMENTS: On arrivalLACTIC [id number] 14:17:00* Test Item Value Reference Range Interpretation Comments LACTIC ACID (test code = LACT) 5.0 mmol/L 0.4-1.9 HH BASIC METABOLIC [id number] 14:15:00* Test Item Value Reference Range Interpretation [...] CA) 8.5 mg/dL 8.0-10.5 N COMMENTS: On [id number] 14:15:00* Test Item Value Reference Range Interpretation Comments MAGNESIUM (test code = MAG) 2.40 mg/dL 1.8-2.4 COMMENTS: On arrivalCBC W/AUTO [id number] 14:00:00* Test Item Value Reference Range Interpretation [...] = MDIFF) NO COMMENTS: On arrivalARTERIAL BLOOD [id number] 13:59:00* Test Item Value Reference Range Interpretation [...] = PEEPA) 5 cmH2O Performed by certified engine lathe set up operator tool at [facility] ABG TEMPERATURE (test code = TEMPA) 97.7 F ABG SITE (test code = SITEA) Art line PREDICTED AA GRADIENT (test code = AP) 60 PREDICTED PO2 (test code = OP) 171 a/A RATIO (test code = RATIO) 0.60 TCO2 ARTERIAL (test code = TCO2A) 24 A-A GRADIENT (test code = AAGRADE) 92 [id number] 13:15:00* Test Item Value Reference Range Interpretation Comments GLUBED (test code = GLUBED) 107 MG/DL 70-110 N Performed by certified engine lathe set up operator tool at [facility] [id number] 13:15:00* Test Item Value Reference Range Interpretation Comments GLUBED (test code = GLUBED) 128 MG/DL 70-110 H Performed by certified engine lathe set up operator tool at [facility] [id number] 13:15:00* Test Item Value Reference Range Interpretation Comments GLUBED (test code = GLUBED) 137 MG/DL 70-110 H Performed by certified engine lathe set up operator tool at [facility] [id number] 13:15:00* Test Item Value Reference Range Interpretation Comments GLUBED (test code = GLUBED) 142 MG/DL 70-110 H Performed by certified engine lathe set up operator tool at [facility] [id number] 13:15:00* Test Item Value Reference Range Interpretation Comments GLUBED (test code = GLUBED) 120 MG/DL 70-110 H Performed by certified engine lathe set up operator tool at [facility] [id number] 13:15:00* Test Item Value Reference Range Interpretation Comments GLUBED (test code = GLUBED) 85 MG/DL 70-110 N Performed by certified engine lathe set up operator tool at [facility] [id number] 13:15:00* Test Item Value Reference Range Interpretation Comments GLUBED (test code = GLUBED) 115 MG/DL 70-110 H Performed by certified engine lathe set up operator tool at [facility] PROTHROMBIN [id number] 12:38:00* Test Item Value Reference Range Interpretation [...] Infarction (to prevent recurrent infarct). THROMBOPLASTIN TIME [id number] 12:38:00* Test Item Value Reference Range Interpretation Comments THROMBOPLASTIN TIME PARTIAL (test code = PTT) 36.8 Seconds 25.0-39. 5 Therapeutic Range: 50.4 - 88.3 Seconds Effective 06/07/2018 HGB [id number] 12:30:00* Test Item Value Reference Range Interpretation Comments HEMOGLOBIN (test code = HGB) 5.9 g/dL 11.0-15.0 LL HEMATOCRIT (test code = HCT) 18.2 % 33.0-45.0 L PLATELET [id number] 12:30:00* Test Item Value Reference Range Interpretation Comments PLATELET COUNT (test code = PLT) 159 x10 3/uL 150-400 N [id number] 12:20:00* Test Item Value Reference Range Interpretation Comments ACT-ISTAT (test code = ACTI) 114 SEC 74-137 N Performed by certified engine lathe set up operator tool at [facility] POC ARTERIAL BLOOD [id number] 12:12:00* Test Item Value Reference Range Interpretation Comments POC ARTERIAL BLOOD GAS PH (test code = POCPHA) 7.421 7.35-7. 45 N POC ARTERIAL BLOOD GAS PCO2 (test code = JKPGUE9N) 36.4 mmHg 35. 0-45 N POC TCO2 ARTERIAL (test code = POCTCO2) 24.8 POC ARTERIAL BLOOD GAS PO2 (test code = NFLSU3H) 564.4 mmHg 80-10 0.0 HH POC HCO3 ARTERIAL (test code = UEVVPI2E) 23.7 MMOL/L 22.0-26.0 N POC BASE EXCESS (test code = POCBEA) -0.7 MMOL/L -4.0-4.0 N POC O2 SATURATION (test code = POCO2S) 100.0 % 90-100 N [id number] 12:12:00* Test Item Value Reference Range Interpretation Comments SODIUM (test code = NA/ABG) MEQ/L 134-147 [id number] 12:12:00* Test Item Value Reference Range Interpretation Comments POTASSIUM (test code = K/ABG) MEQ/L 3.4-5.0 [id number] 12:12:00* Test Item Value Reference Range Interpretation Comments CHLORIDE (test code = CL/ABG) MEQ/L 100-108 CREATININE [id number] 12:12:00* Test Item Value Reference Range Interpretation Comments CREATININE ABG (test code = CREAABG) mg/dL 0.6-1.0 [id number] 12:12:00* Test Item Value Reference Range Interpretation Comments HEMOGLOBIN (test code = HGB/ABG) G/DL 11.0-15.0 [id number] 12:12:00* Test Item Value Reference Range Interpretation Comments HEMATOCRIT (test code = HCT/ABG) % 33.0-45.0 POC IONIZED [id number] 12:12:00* Test Item Value Reference Range Interpretation Comments POC IONIZED CALCIUM (test code = POCCA) MMOL/L 1.12-1.32 POC LACTIC [id number] 12:12:00* Test Item Value Reference Range Interpretation Comments POC LACTIC ACID (test code = POCLAC) mmol/l 0.9-1.7 POC [id number] 12:12:00* Test Item Value Reference Range Interpretation Comments POC GLUCOSE (test code = POCGLU) MG/DL 70-110 POC ARTERIAL BLOOD [id number] 12:12:00* Test Item Value Reference Range Interpretation Comments POC ARTERIAL BLOOD GAS PH (test code = POCPHA) 7.421 7.35-7. 45 N POC ARTERIAL BLOOD GAS PCO2 (test code = WTJPYR3B) 36.4 mmHg 35. 0-45 N POC TCO2 ARTERIAL (test code = POCTCO2) 24.8 POC ARTERIAL BLOOD GAS PO2 (test code = PLELM1I) 564.4 mmHg 80-10 0.0 HH POC HCO3 ARTERIAL (test code = JDWWGV2K) 23.7 MMOL/L 22.0-26.0 N POC BASE EXCESS (test code = POCBEA) -0.7 MMOL/L -4.0-4.0 N POC O2 SATURATION (test code = POCO2S) 100.0 % 90-100 N [id number] 12:12:00* Test Item Value Reference Range Interpretation Comments SODIUM (test code = NA/ABG) 139 MEQ/L 134-147 N [id number] 12:12:00* Test Item Value Reference Range Interpretation Comments POTASSIUM (test code = K/ABG) MEQ/L 3.4-5.0 [id number] 12:12:00* Test Item Value Reference Range Interpretation Comments CHLORIDE (test code = CL/ABG) MEQ/L 100-108 CREATININE [id number] 12:12:00* Test Item Value Reference Range Interpretation Comments CREATININE ABG (test code = CREAABG) mg/dL 0.6-1.0 [id number] 12:12:00* Test Item Value Reference Range Interpretation Comments HEMOGLOBIN (test code = HGB/ABG) G/DL 11.0-15.0 [id number] 12:12:00* Test Item Value Reference Range Interpretation Comments HEMATOCRIT (test code = HCT/ABG) % 33.0-45.0 POC IONIZED [id number] 12:12:00* Test Item Value Reference Range Interpretation Comments POC IONIZED CALCIUM (test code = POCCA) MMOL/L 1.12-1.32 POC LACTIC [id number] 12:12:00* Test Item Value Reference Range Interpretation Comments POC LACTIC ACID (test code = POCLAC) mmol/l 0.9-1.7 POC [id number] 12:12:00* Test Item Value Reference Range Interpretation Comments POC GLUCOSE (test code = POCGLU) MG/DL 70-110 POC ARTERIAL BLOOD [id number] 12:12:00* Test Item Value Reference Range Interpretation Comments POC ARTERIAL BLOOD GAS PH (test code = POCPHA) 7.421 7.35-7. 45 N POC ARTERIAL BLOOD GAS PCO2 (test code = YFQVPS3G) 36.4 mmHg 35. 0-45 N POC TCO2 ARTERIAL (test code = POCTCO2) 24.8 POC ARTERIAL BLOOD GAS PO2 (test code = WMHNP6W) 564.4 mmHg 80-10 0.0 HH POC HCO3 ARTERIAL (test code = ANBEEW9P) 23.7 MMOL/L 22.0-26.0 N POC BASE EXCESS (test code = POCBEA) -0.7 MMOL/L -4.0-4.0 N POC O2 SATURATION (test code = POCO2S) 100.0 % 90-100 N [id number] 12:12:00* Test Item Value Reference Range Interpretation Comments SODIUM (test code = NA/ABG) 139 MEQ/L 134-147 N [id number] 12:12:00* Test Item Value Reference Range Interpretation Comments POTASSIUM (test code = K/ABG) 3.4 MEQ/L 3.4-5.0 N [id number] 12:12:00* Test Item Value Reference Range Interpretation Comments CHLORIDE (test code = CL/ABG) MEQ/L 100-108 CREATININE [id number] 12:12:00* Test Item Value Reference Range Interpretation Comments CREATININE ABG (test code = CREAABG) mg/dL 0.6-1.0 [id number] 12:12:00* Test Item Value Reference Range Interpretation Comments HEMOGLOBIN (test code = HGB/ABG) G/DL 11.0-15.0 [id number] 12:12:00* Test Item Value Reference Range Interpretation Comments HEMATOCRIT (test code = HCT/ABG) % 33.0-45.0 POC IONIZED [id number] 12:12:00* Test Item Value Reference Range Interpretation Comments POC IONIZED CALCIUM (test code = POCCA) MMOL/L 1.12-1.32 POC LACTIC [id number] 12:12:00* Test Item Value Reference Range Interpretation Comments POC LACTIC ACID (test code = POCLAC) mmol/l 0.9-1.7 POC [id number] 12:12:00* Test Item Value Reference Range Interpretation Comments POC GLUCOSE (test code = POCGLU) MG/DL 70-110 POC ARTERIAL BLOOD [id number] 12:12:00* Test Item Value Reference Range Interpretation Comments POC ARTERIAL BLOOD GAS PH (test code = POCPHA) 7.421 7.35-7. 45 N POC ARTERIAL BLOOD GAS PCO2 (test code = WZDBCW0U) 36.4 mmHg 35. 0-45 N POC TCO2 ARTERIAL (test code = POCTCO2) 24.8 POC ARTERIAL BLOOD GAS PO2 (test code = CJSXS2B) 564.4 mmHg 80-10 0.0 HH POC HCO3 ARTERIAL (test code = IPRQOJ0W) 23.7 MMOL/L 22.0-26.0 N POC BASE EXCESS (test code = POCBEA) -0.7 MMOL/L -4.0-4.0 N POC O2 SATURATION (test code = POCO2S) 100.0 % 90-100 N [id number] 12:12:00* Test Item Value Reference Range Interpretation Comments SODIUM (test code = NA/ABG) 139 MEQ/L 134-147 N [id number] 12:12:00* Test Item Value Reference Range Interpretation Comments POTASSIUM (test code = K/ABG) 3.4 MEQ/L 3.4-5.0 N [id number] 12:12:00* Test Item Value Reference Range Interpretation Comments CHLORIDE (test code = CL/ABG) MEQ/L 100-108 CREATININE [id number] 12:12:00* Test Item Value Reference Range Interpretation Comments CREATININE ABG (test code = CREAABG) mg/dL 0.6-1.0 [id number] 12:12:00* Test Item Value Reference Range Interpretation Comments HEMOGLOBIN (test code = HGB/ABG) G/DL 11.0-15.0 [id number] 12:12:00* Test Item Value Reference Range Interpretation Comments HEMATOCRIT (test code = HCT/ABG) % 33.0-45.0 POC IONIZED [id number] 12:12:00* Test Item Value Reference Range Interpretation Comments POC IONIZED CALCIUM (test code = POCCA) 1.34 MMOL/L 1.12-1.32 H POC LACTIC [id number] 12:12:00* Test Item Value Reference Range Interpretation Comments POC LACTIC ACID (test code = POCLAC) mmol/l 0.9-1.7 POC [id number] 12:12:00* Test Item Value Reference Range Interpretation Comments POC GLUCOSE (test code = POCGLU) MG/DL 70-110 POC ARTERIAL BLOOD [id number] 12:12:00* Test Item Value Reference Range Interpretation Comments POC ARTERIAL BLOOD GAS PH (test code = POCPHA) 7.421 7.35-7. 45 N POC ARTERIAL BLOOD GAS PCO2 (test code = KHRRUT9A) 36.4 mmHg 35. 0-45 N POC TCO2 ARTERIAL (test code = POCTCO2) 24.8 POC ARTERIAL BLOOD GAS PO2 (test code = AZGBB2P) 564.4 mmHg 80-10 0.0 HH POC HCO3 ARTERIAL (test code = PXCEQW3F) 23.7 MMOL/L 22.0-26.0 N POC BASE EXCESS (test code = POCBEA) -0.7 MMOL/L -4.0-4.0 N POC O2 SATURATION (test code = POCO2S) 100.0 % 90-100 N [id number] 12:12:00* Test Item Value Reference Range Interpretation Comments SODIUM (test code = NA/ABG) 139 MEQ/L 134-147 N [id number] 12:12:00* Test Item Value Reference Range Interpretation Comments POTASSIUM (test code = K/ABG) 3.4 MEQ/L 3.4-5.0 N [id number] 12:12:00* Test Item Value Reference Range Interpretation Comments CHLORIDE (test code = CL/ABG) MEQ/L 100-108 CREATININE [id number] 12:12:00* Test Item Value Reference Range Interpretation Comments CREATININE ABG (test code = CREAABG) mg/dL 0.6-1.0 [id number] 12:12:00* Test Item Value Reference Range Interpretation Comments HEMOGLOBIN (test code = HGB/ABG) G/DL 11.0-15.0 [id number] 12:12:00* Test Item Value Reference Range Interpretation Comments HEMATOCRIT (test code = HCT/ABG) % 33.0-45.0 POC IONIZED [id number] 12:12:00* Test Item Value Reference Range Interpretation Comments POC IONIZED CALCIUM (test code = POCCA) 1.34 MMOL/L 1.12-1.32 H POC LACTIC [id number] 12:12:00* Test Item Value Reference Range Interpretation Comments POC LACTIC ACID (test code = POCLAC) mmol/l 0.9-1.7 POC [id number] 12:12:00* Test Item Value Reference Range Interpretation Comments POC GLUCOSE (test code = POCGLU) 128 MG/DL 70-110 H POC ARTERIAL BLOOD [id number] 12:12:00* Test Item Value Reference Range Interpretation Comments POC ARTERIAL BLOOD GAS PH (test code = POCPHA) 7.421 7.35-7. 45 N POC ARTERIAL BLOOD GAS PCO2 (test code = NCXTAQ0G) 36.4 mmHg 35. 0-45 N POC TCO2 ARTERIAL (test code = POCTCO2) 24.8 POC ARTERIAL BLOOD GAS PO2 (test code = LVMUO4M) 564.4 mmHg 80-10 0.0 HH POC HCO3 ARTERIAL (test code = DOWEKA9B) 23.7 MMOL/L 22.0-26.0 N POC BASE EXCESS (test code = POCBEA) -0.7 MMOL/L -4.0-4.0 N POC O2 SATURATION (test code = POCO2S) 100.0 % 90-100 N [id number] 12:12:00* Test Item Value Reference Range Interpretation Comments SODIUM (test code = NA/ABG) 139 MEQ/L 134-147 N [id number] 12:12:00* Test Item Value Reference Range Interpretation Comments POTASSIUM (test code = K/ABG) 3.4 MEQ/L 3.4-5.0 N [id number] 12:12:00* Test Item Value Reference Range Interpretation Comments CHLORIDE (test code = CL/ABG) MEQ/L 100-108 CREATININE [id number] 12:12:00* Test Item Value Reference Range Interpretation Comments CREATININE ABG (test code = CREAABG) mg/dL 0.6-1.0 [id number] 12:12:00* Test Item Value Reference Range Interpretation Comments HEMOGLOBIN (test code = HGB/ABG) G/DL 11.0-15.0 [id number] 12:12:00* Test Item Value Reference Range Interpretation Comments HEMATOCRIT (test code = HCT/ABG) % 33.0-45.0 POC IONIZED [id number] 12:12:00* Test Item Value Reference Range Interpretation Comments POC IONIZED CALCIUM (test code = POCCA) 1.34 MMOL/L 1.12-1.32 H POC LACTIC [id number] 12:12:00* Test Item Value Reference Range Interpretation Comments POC LACTIC ACID (test code = POCLAC) 3.3 mmol/l 0.9-1.7 H POC [id number] 12:12:00* Test Item Value Reference Range Interpretation Comments POC GLUCOSE (test code = POCGLU) 128 MG/DL 70-110 H POC ARTERIAL BLOOD [id number] 12:12:00* Test Item Value Reference Range Interpretation Comments POC ARTERIAL BLOOD GAS PH (test code = POCPHA) 7.421 7.35-7. 45 N POC ARTERIAL BLOOD GAS PCO2 (test code = OHUBTF1Z) 36.4 mmHg 35. 0-45 N POC TCO2 ARTERIAL (test code = POCTCO2) 24.8 POC ARTERIAL BLOOD GAS PO2 (test code = WMQPY1L) 564.4 mmHg 80-10 0.0 HH POC HCO3 ARTERIAL (test code = MKMXSG8C) 23.7 MMOL/L 22.0-26.0 N POC BASE EXCESS (test code = POCBEA) -0.7 MMOL/L -4.0-4.0 N POC O2 SATURATION (test code = POCO2S) 100.0 % 90-100 N [id number] 12:12:00* Test Item Value Reference Range Interpretation Comments SODIUM (test code = NA/ABG) 139 MEQ/L 134-147 N [id number] 12:12:00* Test Item Value Reference Range Interpretation Comments POTASSIUM (test code = K/ABG) 3.4 MEQ/L 3.4-5.0 N [id number] 12:12:00* Test Item Value Reference Range Interpretation Comments CHLORIDE (test code = CL/ABG) MEQ/L 100-108 CREATININE [id number] 12:12:00* Test Item Value Reference Range Interpretation Comments CREATININE ABG (test code = CREAABG) mg/dL 0.6-1.0 [id number] 12:12:00* Test Item Value Reference Range Interpretation Comments HEMOGLOBIN (test code = HGB/ABG) G/DL 11.0-15.0 [id number] 12:12:00* Test Item Value Reference Range Interpretation Comments HEMATOCRIT (test code = HCT/ABG) 21 % 33.0-45.0 L POC IONIZED [id number] 12:12:00* Test Item Value Reference Range Interpretation Comments POC IONIZED CALCIUM (test code = POCCA) 1.34 MMOL/L 1.12-1.32 H POC LACTIC [id number] 12:12:00* Test Item Value Reference Range Interpretation Comments POC LACTIC ACID (test code = POCLAC) 3.3 mmol/l 0.9-1.7 H POC [id number] 12:12:00* Test Item Value Reference Range Interpretation Comments POC GLUCOSE (test code = POCGLU) 128 MG/DL 70-110 H POC ARTERIAL BLOOD [id number] 12:12:00* Test Item Value Reference Range Interpretation Comments POC ARTERIAL BLOOD GAS PH (test code = POCPHA) 7.421 7.35-7. 45 N POC ARTERIAL BLOOD GAS PCO2 (test code = DRORBD4E) 36.4 mmHg 35. 0-45 N POC TCO2 ARTERIAL (test code = POCTCO2) 24.8 POC ARTERIAL BLOOD GAS PO2 (test code = MKQYQ9V) 564.4 mmHg 80-10 0.0 HH POC HCO3 ARTERIAL (test code = IUUCMT8A) 23.7 MMOL/L 22.0-26.0 N POC BASE EXCESS (test code = POCBEA) -0.7 MMOL/L -4.0-4.0 N POC O2 SATURATION (test code = POCO2S) 100.0 % 90-100 N [id number] 12:12:00* Test Item Value Reference Range Interpretation Comments SODIUM (test code = NA/ABG) 139 MEQ/L 134-147 N [id number] 12:12:00* Test Item Value Reference Range Interpretation Comments POTASSIUM (test code = K/ABG) 3.4 MEQ/L 3.4-5.0 N [id number] 12:12:00* Test Item Value Reference Range Interpretation Comments CHLORIDE (test code = CL/ABG) MEQ/L 100-108 CREATININE [id number] 12:12:00* Test Item Value Reference Range Interpretation Comments CREATININE ABG (test code = CREAABG) mg/dL 0.6-1.0 [id number] 12:12:00* Test Item Value Reference Range Interpretation Comments HEMOGLOBIN (test code = HGB/ABG) 7.0 G/DL 11.0-15.0 L [id number] 12:12:00* Test Item Value Reference Range Interpretation Comments HEMATOCRIT (test code = HCT/ABG) 21 % 33.0-45.0 L POC IONIZED [id number] 12:12:00* Test Item Value Reference Range Interpretation Comments POC IONIZED CALCIUM (test code = POCCA) 1.34 MMOL/L 1.12-1.32 H POC LACTIC [id number] 12:12:00* Test Item Value Reference Range Interpretation Comments POC LACTIC ACID (test code = POCLAC) 3.3 mmol/l 0.9-1.7 H POC [id number] 12:12:00* Test Item Value Reference Range Interpretation Comments POC GLUCOSE (test code = POCGLU) 128 MG/DL 70-110 H POC ARTERIAL BLOOD [id number] 12:12:00* Test Item Value Reference Range Interpretation Comments POC ARTERIAL BLOOD GAS PH (test code = POCPHA) 7.421 7.35-7. 45 N POC ARTERIAL BLOOD GAS PCO2 (test code = IHXDOW5K) 36.4 mmHg 35. 0-45 N POC TCO2 ARTERIAL (test code = POCTCO2) 24.8 POC ARTERIAL BLOOD GAS PO2 (test code = XFUXN0K) 564.4 mmHg 80-10 0.0 HH POC HCO3 ARTERIAL (test code = UKJOOF6T) 23.7 MMOL/L 22.0-26.0 N POC BASE EXCESS (test code = POCBEA) -0.7 MMOL/L -4.0-4.0 N POC O2 SATURATION (test code = POCO2S) 100.0 % 90-100 N [id number] 12:12:00* Test Item Value Reference Range Interpretation Comments SODIUM (test code = NA/ABG) 139 MEQ/L 134-147 N [id number] 12:12:00* Test Item Value Reference Range Interpretation Comments POTASSIUM (test code = K/ABG) 3.4 MEQ/L 3.4-5.0 N [id number] 12:12:00* Test Item Value Reference Range Interpretation Comments CHLORIDE (test code = CL/ABG) 103 MEQ/L 100-108 N CREATININE [id number] 12:12:00* Test Item Value Reference Range Interpretation Comments CREATININE ABG (test code = CREAABG) mg/dL 0.6-1.0 [id number] 12:12:00* Test Item Value Reference Range Interpretation Comments HEMOGLOBIN (test code = HGB/ABG) 7.0 G/DL 11.0-15.0 L [id number] 12:12:00* Test Item Value Reference Range Interpretation Comments HEMATOCRIT (test code = HCT/ABG) 21 % 33.0-45.0 L POC IONIZED [id number] 12:12:00* Test Item Value Reference Range Interpretation Comments POC IONIZED CALCIUM (test code = POCCA) 1.34 MMOL/L 1.12-1.32 H POC LACTIC [id number] 12:12:00* Test Item Value Reference Range Interpretation Comments POC LACTIC ACID (test code = POCLAC) 3.3 mmol/l 0.9-1.7 H POC [id number] 12:12:00* Test Item Value Reference Range Interpretation Comments POC GLUCOSE (test code = POCGLU) 128 MG/DL 70-110 H POC ARTERIAL BLOOD [id number] 12:12:00* Test Item Value Reference Range Interpretation Comments POC ARTERIAL BLOOD GAS PH (test code = POCPHA) 7.421 7.35-7. 45 N POC ARTERIAL BLOOD GAS PCO2 (test code = YCBBPW5F) 36.4 mmHg 35. 0-45 N POC TCO2 ARTERIAL (test code = POCTCO2) 24.8 POC ARTERIAL BLOOD GAS PO2 (test code = JVBLT7C) 564.4 mmHg 80-10 0.0 HH POC HCO3 ARTERIAL (test code = MXLDGU4G) 23.7 MMOL/L 22.0-26.0 N POC BASE EXCESS (test code = POCBEA) -0.7 MMOL/L -4.0-4.0 N POC O2 SATURATION (test code = POCO2S) 100.0 % 90-100 N [id number] 12:12:00* Test Item Value Reference Range Interpretation Comments SODIUM (test code = NA/ABG) 139 MEQ/L 134-147 N [id number] 12:12:00* Test Item Value Reference Range Interpretation Comments POTASSIUM (test code = K/ABG) 3.4 MEQ/L 3.4-5.0 N [id number] 12:12:00* Test Item Value Reference Range Interpretation Comments CHLORIDE (test code = CL/ABG) 103 MEQ/L 100-108 N CREATININE [id number] 12:12:00* Test Item Value Reference Range Interpretation Comments CREATININE ABG (test code = CREAABG) 0.4 mg/dL 0.6-1.0 L [id number] 12:12:00* Test Item Value Reference Range Interpretation Comments HEMOGLOBIN (test code = HGB/ABG) 7.0 G/DL 11.0-15.0 L [id number] 12:12:00* Test Item Value Reference Range Interpretation Comments HEMATOCRIT (test code = HCT/ABG) 21 % 33.0-45.0 L POC IONIZED [id number] 12:12:00* Test Item Value Reference Range Interpretation Comments POC IONIZED CALCIUM (test code = POCCA) 1.34 MMOL/L 1.12-1.32 H POC LACTIC [id number] 12:12:00* Test Item Value Reference Range Interpretation Comments POC LACTIC ACID (test code = POCLAC) 3.3 mmol/l 0.9-1.7 H POC [id number] 12:12:00* Test Item Value Reference Range Interpretation Comments POC GLUCOSE (test code = POCGLU) 128 MG/DL 70-110 H [id number] 11:26:00* Test Item Value Reference Range Interpretation Comments ACT-ISTAT (test code = ACTI) 494 SEC 74-137 H Performed by certified engine lathe set up operator tool at [facility] POC ARTERIAL BLOOD [id number] 11:14:00* Test Item Value Reference Range Interpretation Comments POC ARTERIAL BLOOD GAS PH (test code = POCPHA) 7.453 7.35-7. 45 H POC ARTERIAL BLOOD GAS PCO2 (test code = XDHRIW4S) 37.3 mmHg 35. 0-45 N POC TCO2 ARTERIAL (test code = POCTCO2) 27.3 POC ARTERIAL BLOOD GAS PO2 (test code = IVKFS3V) 424.5 mmHg 80-10 0.0 HH POC HCO3 ARTERIAL (test code = RPVRIN1B) 26.1 MMOL/L 22.0-26.0 H POC BASE EXCESS (test code = POCBEA) 2.0 MMOL/L -4.0-4.0 N POC O2 SATURATION (test code = POCO2S) 100.0 % 90-100 N [id number] 11:14:00* Test Item Value Reference Range Interpretation Comments SODIUM (test code = NA/ABG) MEQ/L 134-147 [id number] 11:14:00* Test Item Value Reference Range Interpretation Comments POTASSIUM (test code = K/ABG) MEQ/L 3.4-5.0 [id number] 11:14:00* Test Item Value Reference Range Interpretation Comments CHLORIDE (test code = CL/ABG) MEQ/L 100-108 CREATININE [id number] 11:14:00* Test Item Value Reference Range Interpretation Comments CREATININE ABG (test code = CREAABG) mg/dL 0.6-1.0 [id number] 11:14:00* Test Item Value Reference Range Interpretation Comments HEMOGLOBIN (test code = HGB/ABG) G/DL 11.0-15.0 [id number] 11:14:00* Test Item Value Reference Range Interpretation Comments HEMATOCRIT (test code = HCT/ABG) % 33.0-45.0 POC IONIZED [id number] 11:14:00* Test Item Value Reference Range Interpretation Comments POC IONIZED CALCIUM (test code = POCCA) MMOL/L 1.12-1.32 POC LACTIC [id number] 11:14:00* Test Item Value Reference Range Interpretation Comments POC LACTIC ACID (test code = POCLAC) mmol/l 0.9-1.7 POC [id number] 11:14:00* Test Item Value Reference Range Interpretation Comments POC GLUCOSE (test code = POCGLU) MG/DL 70-110 POC ARTERIAL BLOOD [id number] 11:14:00* Test Item Value Reference Range Interpretation Comments POC ARTERIAL BLOOD GAS PH (test code = POCPHA) 7.453 7.35-7. 45 H POC ARTERIAL BLOOD GAS PCO2 (test code = KXWXUP4Q) 37.3 mmHg 35. 0-45 N POC TCO2 ARTERIAL (test code = POCTCO2) 27.3 POC ARTERIAL BLOOD GAS PO2 (test code = ZXCRF2V) 424.5 mmHg 80-10 0.0 HH POC HCO3 ARTERIAL (test code = PTZXHY8P) 26.1 MMOL/L 22.0-26.0 H POC BASE EXCESS (test code = POCBEA) 2.0 MMOL/L -4.0-4.0 N POC O2 SATURATION (test code = POCO2S) 100.0 % 90-100 N [id number] 11:14:00* Test Item Value Reference Range Interpretation Comments SODIUM (test code = NA/ABG) 139 MEQ/L 134-147 N [id number] 11:14:00* Test Item Value Reference Range Interpretation Comments POTASSIUM (test code = K/ABG) MEQ/L 3.4-5.0 [id number] 11:14:00* Test Item Value Reference Range Interpretation Comments CHLORIDE (test code = CL/ABG) MEQ/L 100-108 CREATININE [id number] 11:14:00* Test Item Value Reference Range Interpretation Comments CREATININE ABG (test code = CREAABG) mg/dL 0.6-1.0 [id number] 11:14:00* Test Item Value Reference Range Interpretation Comments HEMOGLOBIN (test code = HGB/ABG) G/DL 11.0-15.0 [id number] 11:14:00* Test Item Value Reference Range Interpretation Comments HEMATOCRIT (test code = HCT/ABG) % 33.0-45.0 POC IONIZED [id number] 11:14:00* Test Item Value Reference Range Interpretation Comments POC IONIZED CALCIUM (test code = POCCA) MMOL/L 1.12-1.32 POC LACTIC [id number] 11:14:00* Test Item Value Reference Range Interpretation Comments POC LACTIC ACID (test code = POCLAC) mmol/l 0.9-1.7 POC [id number] 11:14:00* Test Item Value Reference Range Interpretation Comments POC GLUCOSE (test code = POCGLU) MG/DL 70-110 POC ARTERIAL BLOOD [id number] 11:14:00* Test Item Value Reference Range Interpretation Comments POC ARTERIAL BLOOD GAS PH (test code = POCPHA) 7.453 7.35-7. 45 H POC ARTERIAL BLOOD GAS PCO2 (test code = FLYDTI4L) 37.3 mmHg 35. 0-45 N POC TCO2 ARTERIAL (test code = POCTCO2) 27.3 POC ARTERIAL BLOOD GAS PO2 (test code = FLVSC2X) 424.5 mmHg 80-10 0.0 HH POC HCO3 ARTERIAL (test code = FNQQPH6C) 26.1 MMOL/L 22.0-26.0 H POC BASE EXCESS (test code = POCBEA) 2.0 MMOL/L -4.0-4.0 N POC O2 SATURATION (test code = POCO2S) 100.0 % 90-100 N [id number] 11:14:00* Test Item Value Reference Range Interpretation Comments SODIUM (test code = NA/ABG) 139 MEQ/L 134-147 N [id number] 11:14:00* Test Item Value Reference Range Interpretation Comments POTASSIUM (test code = K/ABG) 5.6 MEQ/L 3.4-5.0 H [id number] 11:14:00* Test Item Value Reference Range Interpretation Comments CHLORIDE (test code = CL/ABG) MEQ/L 100-108 CREATININE [id number] 11:14:00* Test Item Value Reference Range Interpretation Comments CREATININE ABG (test code = CREAABG) mg/dL 0.6-1.0 [id number] 11:14:00* Test Item Value Reference Range Interpretation Comments HEMOGLOBIN (test code = HGB/ABG) G/DL 11.0-15.0 [id number] 11:14:00* Test Item Value Reference Range Interpretation Comments HEMATOCRIT (test code = HCT/ABG) % 33.0-45.0 POC IONIZED [id number] 11:14:00* Test Item Value Reference Range Interpretation Comments POC IONIZED CALCIUM (test code = POCCA) MMOL/L 1.12-1.32 POC LACTIC [id number] 11:14:00* Test Item Value Reference Range Interpretation Comments POC LACTIC ACID (test code = POCLAC) mmol/l 0.9-1.7 POC [id number] 11:14:00* Test Item Value Reference Range Interpretation Comments POC GLUCOSE (test code = POCGLU) MG/DL 70-110 POC ARTERIAL BLOOD [id number] 11:14:00* Test Item Value Reference Range Interpretation Comments POC ARTERIAL BLOOD GAS PH (test code = POCPHA) 7.453 7.35-7. 45 H POC ARTERIAL BLOOD GAS PCO2 (test code = HNQFYA1R) 37.3 mmHg 35. 0-45 N POC TCO2 ARTERIAL (test code = POCTCO2) 27.3 POC ARTERIAL BLOOD GAS PO2 (test code = DJRDV8V) 424.5 mmHg 80-10 0.0 HH POC HCO3 ARTERIAL (test code = CATSMK0E) 26.1 MMOL/L 22.0-26.0 H POC BASE EXCESS (test code = POCBEA) 2.0 MMOL/L -4.0-4.0 N POC O2 SATURATION (test code = POCO2S) 100.0 % 90-100 N [id number] 11:14:00* Test Item Value Reference Range Interpretation Comments SODIUM (test code = NA/ABG) 139 MEQ/L 134-147 N [id number] 11:14:00* Test Item Value Reference Range Interpretation Comments POTASSIUM (test code = K/ABG) 5.6 MEQ/L 3.4-5.0 H [id number] 11:14:00* Test Item Value Reference Range Interpretation Comments CHLORIDE (test code = CL/ABG) MEQ/L 100-108 CREATININE [id number] 11:14:00* Test Item Value Reference Range Interpretation Comments CREATININE ABG (test code = CREAABG) mg/dL 0.6-1.0 [id number] 11:14:00* Test Item Value Reference Range Interpretation Comments HEMOGLOBIN (test code = HGB/ABG) G/DL 11.0-15.0 [id number] 11:14:00* Test Item Value Reference Range Interpretation Comments HEMATOCRIT (test code = HCT/ABG) % 33.0-45.0 POC IONIZED [id number] 11:14:00* Test Item Value Reference Range Interpretation Comments POC IONIZED CALCIUM (test code = POCCA) 1.09 MMOL/L 1.12-1.32 L POC LACTIC [id number] 11:14:00* Test Item Value Reference Range Interpretation Comments POC LACTIC ACID (test code = POCLAC) mmol/l 0.9-1.7 POC [id number] 11:14:00* Test Item Value Reference Range Interpretation Comments POC GLUCOSE (test code = POCGLU) MG/DL 70-110 POC ARTERIAL BLOOD [id number] 11:14:00* Test Item Value Reference Range Interpretation Comments POC ARTERIAL BLOOD GAS PH (test code = POCPHA) 7.453 7.35-7. 45 H POC ARTERIAL BLOOD GAS PCO2 (test code = FPCOHX4Q) 37.3 mmHg 35. 0-45 N POC TCO2 ARTERIAL (test code = POCTCO2) 27.3 POC ARTERIAL BLOOD GAS PO2 (test code = IGXTX4H) 424.5 mmHg 80-10 0.0 HH POC HCO3 ARTERIAL (test code = SUGRKP3H) 26.1 MMOL/L 22.0-26.0 H POC BASE EXCESS (test code = POCBEA) 2.0 MMOL/L -4.0-4.0 N POC O2 SATURATION (test code = POCO2S) 100.0 % 90-100 N [id number] 11:14:00* Test Item Value Reference Range Interpretation Comments SODIUM (test code = NA/ABG) 139 MEQ/L 134-147 N [id number] 11:14:00* Test Item Value Reference Range Interpretation Comments POTASSIUM (test code = K/ABG) 5.6 MEQ/L 3.4-5.0 H [id number] 11:14:00* Test Item Value Reference Range Interpretation Comments CHLORIDE (test code = CL/ABG) MEQ/L 100-108 CREATININE [id number] 11:14:00* Test Item Value Reference Range Interpretation Comments CREATININE ABG (test code = CREAABG) mg/dL 0.6-1.0 [id number] 11:14:00* Test Item Value Reference Range Interpretation Comments HEMOGLOBIN (test code = HGB/ABG) G/DL 11.0-15.0 [id number] 11:14:00* Test Item Value Reference Range Interpretation Comments HEMATOCRIT (test code = HCT/ABG) % 33.0-45.0 POC IONIZED [id number] 11:14:00* Test Item Value Reference Range Interpretation Comments POC IONIZED CALCIUM (test code = POCCA) 1.09 MMOL/L 1.12-1.32 L POC LACTIC [id number] 11:14:00* Test Item Value Reference Range Interpretation Comments POC LACTIC ACID (test code = POCLAC) mmol/l 0.9-1.7 POC [id number] 11:14:00* Test Item Value Reference Range Interpretation Comments POC GLUCOSE (test code = POCGLU) 144 MG/DL 70-110 H POC ARTERIAL BLOOD [id number] 11:14:00* Test Item Value Reference Range Interpretation Comments POC ARTERIAL BLOOD GAS PH (test code = POCPHA) 7.453 7.35-7. 45 H POC ARTERIAL BLOOD GAS PCO2 (test code = KUHQBA5Q) 37.3 mmHg 35. 0-45 N POC TCO2 ARTERIAL (test code = POCTCO2) 27.3 POC ARTERIAL BLOOD GAS PO2 (test code = RLAGG2P) 424.5 mmHg 80-10 0.0 HH POC HCO3 ARTERIAL (test code = DPZRFK7B) 26.1 MMOL/L 22.0-26.0 H POC BASE EXCESS (test code = POCBEA) 2.0 MMOL/L -4.0-4.0 N POC O2 SATURATION (test code = POCO2S) 100.0 % 90-100 N [id number] 11:14:00* Test Item Value Reference Range Interpretation Comments SODIUM (test code = NA/ABG) 139 MEQ/L 134-147 N [id number] 11:14:00* Test Item Value Reference Range Interpretation Comments POTASSIUM (test code = K/ABG) 5.6 MEQ/L 3.4-5.0 H [id number] 11:14:00* Test Item Value Reference Range Interpretation Comments CHLORIDE (test code = CL/ABG) MEQ/L 100-108 CREATININE [id number] 11:14:00* Test Item Value Reference Range Interpretation Comments CREATININE ABG (test code = CREAABG) mg/dL 0.6-1.0 [id number] 11:14:00* Test Item Value Reference Range Interpretation Comments HEMOGLOBIN (test code = HGB/ABG) G/DL 11.0-15.0 [id number] 11:14:00* Test Item Value Reference Range Interpretation Comments HEMATOCRIT (test code = HCT/ABG) % 33.0-45.0 POC IONIZED [id number] 11:14:00* Test Item Value Reference Range Interpretation Comments POC IONIZED CALCIUM (test code = POCCA) 1.09 MMOL/L 1.12-1.32 L POC LACTIC [id number] 11:14:00* Test Item Value Reference Range Interpretation Comments POC LACTIC ACID (test code = POCLAC) 2.0 mmol/l 0.9-1.7 H POC [id number] 11:14:00* Test Item Value Reference Range Interpretation Comments POC GLUCOSE (test code = POCGLU) 144 MG/DL 70-110 H POC ARTERIAL BLOOD [id number] 11:14:00* Test Item Value Reference Range Interpretation Comments POC ARTERIAL BLOOD GAS PH (test code = POCPHA) 7.453 7.35-7. 45 H POC ARTERIAL BLOOD GAS PCO2 (test code = ETRLCW3F) 37.3 mmHg 35. 0-45 N POC TCO2 ARTERIAL (test code = POCTCO2) 27.3 POC ARTERIAL BLOOD GAS PO2 (test code = SZRRN5W) 424.5 mmHg 80-10 0.0 HH POC HCO3 ARTERIAL (test code = KLHDJN2I) 26.1 MMOL/L 22.0-26.0 H POC BASE EXCESS (test code = POCBEA) 2.0 MMOL/L -4.0-4.0 N POC O2 SATURATION (test code = POCO2S) 100.0 % 90-100 N [id number] 11:14:00* Test Item Value Reference Range Interpretation Comments SODIUM (test code = NA/ABG) 139 MEQ/L 134-147 N [id number] 11:14:00* Test Item Value Reference Range Interpretation Comments POTASSIUM (test code = K/ABG) 5.6 MEQ/L 3.4-5.0 H [id number] 11:14:00* Test Item Value Reference Range Interpretation Comments CHLORIDE (test code = CL/ABG) MEQ/L 100-108 CREATININE [id number] 11:14:00* Test Item Value Reference Range Interpretation Comments CREATININE ABG (test code = CREAABG) mg/dL 0.6-1.0 [id number] 11:14:00* Test Item Value Reference Range Interpretation Comments HEMOGLOBIN (test code = HGB/ABG) G/DL 11.0-15.0 [id number] 11:14:00* Test Item Value Reference Range Interpretation Comments HEMATOCRIT (test code = HCT/ABG) 20 % 33.0-45.0 L POC IONIZED [id number] 11:14:00* Test Item Value Reference Range Interpretation Comments POC IONIZED CALCIUM (test code = POCCA) 1.09 MMOL/L 1.12-1.32 L POC LACTIC [id number] 11:14:00* Test Item Value Reference Range Interpretation Comments POC LACTIC ACID (test code = POCLAC) 2.0 mmol/l 0.9-1.7 H POC [id number] 11:14:00* Test Item Value Reference Range Interpretation Comments POC GLUCOSE (test code = POCGLU) 144 MG/DL 70-110 H POC ARTERIAL BLOOD [id number] 11:14:00* Test Item Value Reference Range Interpretation Comments POC ARTERIAL BLOOD GAS PH (test code = POCPHA) 7.453 7.35-7. 45 H POC ARTERIAL BLOOD GAS PCO2 (test code = FENITN1U) 37.3 mmHg 35. 0-45 N POC TCO2 ARTERIAL (test code = POCTCO2) 27.3 POC ARTERIAL BLOOD GAS PO2 (test code = GSGUD5D) 424.5 mmHg 80-10 0.0 HH POC HCO3 ARTERIAL (test code = EAMKJO6D) 26.1 MMOL/L 22.0-26.0 H POC BASE EXCESS (test code = POCBEA) 2.0 MMOL/L -4.0-4.0 N POC O2 SATURATION (test code = POCO2S) 100.0 % 90-100 N [id number] 11:14:00* Test Item Value Reference Range Interpretation Comments SODIUM (test code = NA/ABG) 139 MEQ/L 134-147 N [id number] 11:14:00* Test Item Value Reference Range Interpretation Comments POTASSIUM (test code = K/ABG) 5.6 MEQ/L 3.4-5.0 H [id number] 11:14:00* Test Item Value Reference Range Interpretation Comments CHLORIDE (test code = CL/ABG) MEQ/L 100-108 CREATININE [id number] 11:14:00* Test Item Value Reference Range Interpretation Comments CREATININE ABG (test code = CREAABG) mg/dL 0.6-1.0 [id number] 11:14:00* Test Item Value Reference Range Interpretation Comments HEMOGLOBIN (test code = HGB/ABG) 6.7 G/DL 11.0-15.0 L [id number] 11:14:00* Test Item Value Reference Range Interpretation Comments HEMATOCRIT (test code = HCT/ABG) 20 % 33.0-45.0 L POC IONIZED [id number] 11:14:00* Test Item Value Reference Range Interpretation Comments POC IONIZED CALCIUM (test code = POCCA) 1.09 MMOL/L 1.12-1.32 L POC LACTIC [id number] 11:14:00* Test Item Value Reference Range Interpretation Comments POC LACTIC ACID (test code = POCLAC) 2.0 mmol/l 0.9-1.7 H POC [id number] 11:14:00* Test Item Value Reference Range Interpretation Comments POC GLUCOSE (test code = POCGLU) 144 MG/DL 70-110 H POC ARTERIAL BLOOD [id number] 11:14:00* Test Item Value Reference Range Interpretation Comments POC ARTERIAL BLOOD GAS PH (test code = POCPHA) 7.453 7.35-7. 45 H POC ARTERIAL BLOOD GAS PCO2 (test code = LDNXKN6Q) 37.3 mmHg 35. 0-45 N POC TCO2 ARTERIAL (test code = POCTCO2) 27.3 POC ARTERIAL BLOOD GAS PO2 (test code = YHTNM5P) 424.5 mmHg 80-10 0.0 HH POC HCO3 ARTERIAL (test code = DZELNZ9T) 26.1 MMOL/L 22.0-26.0 H POC BASE EXCESS (test code = POCBEA) 2.0 MMOL/L -4.0-4.0 N POC O2 SATURATION (test code = POCO2S) 100.0 % 90-100 N [id number] 11:14:00* Test Item Value Reference Range Interpretation Comments SODIUM (test code = NA/ABG) 139 MEQ/L 134-147 N [id number] 11:14:00* Test Item Value Reference Range Interpretation Comments POTASSIUM (test code = K/ABG) 5.6 MEQ/L 3.4-5.0 H [id number] 11:14:00* Test Item Value Reference Range Interpretation Comments CHLORIDE (test code = CL/ABG) 100 MEQ/L 100-108 N CREATININE [id number] 11:14:00* Test Item Value Reference Range Interpretation Comments CREATININE ABG (test code = CREAABG) mg/dL 0.6-1.0 [id number] 11:14:00* Test Item Value Reference Range Interpretation Comments HEMOGLOBIN (test code = HGB/ABG) 6.7 G/DL 11.0-15.0 L [id number] 11:14:00* Test Item Value Reference Range Interpretation Comments HEMATOCRIT (test code = HCT/ABG) 20 % 33.0-45.0 L POC IONIZED [id number] 11:14:00* Test Item Value Reference Range Interpretation Comments POC IONIZED CALCIUM (test code = POCCA) 1.09 MMOL/L 1.12-1.32 L POC LACTIC [id number] 11:14:00* Test Item Value Reference Range Interpretation Comments POC LACTIC ACID (test code = POCLAC) 2.0 mmol/l 0.9-1.7 H POC [id number] 11:14:00* Test Item Value Reference Range Interpretation Comments POC GLUCOSE (test code = POCGLU) 144 MG/DL 70-110 H POC ARTERIAL BLOOD [id number] 11:14:00* Test Item Value Reference Range Interpretation Comments POC ARTERIAL BLOOD GAS PH (test code = POCPHA) 7.453 7.35-7. 45 H POC ARTERIAL BLOOD GAS PCO2 (test code = XTCYTF0K) 37.3 mmHg 35. 0-45 N POC TCO2 ARTERIAL (test code = POCTCO2) 27.3 POC ARTERIAL BLOOD GAS PO2 (test code = KHBSP9U) 424.5 mmHg 80-10 0.0 HH POC HCO3 ARTERIAL (test code = NZFKTJ3G) 26.1 MMOL/L 22.0-26.0 H POC BASE EXCESS (test code = POCBEA) 2.0 MMOL/L -4.0-4.0 N POC O2 SATURATION (test code = POCO2S) 100.0 % 90-100 N [id number] 11:14:00* Test Item Value Reference Range Interpretation Comments SODIUM (test code = NA/ABG) 139 MEQ/L 134-147 N [id number] 11:14:00* Test Item Value Reference Range Interpretation Comments POTASSIUM (test code = K/ABG) 5.6 MEQ/L 3.4-5.0 H [id number] 11:14:00* Test Item Value Reference Range Interpretation Comments CHLORIDE (test code = CL/ABG) 100 MEQ/L 100-108 N CREATININE [id number] 11:14:00* Test Item Value Reference Range Interpretation Comments CREATININE ABG (test code = CREAABG) 0.5 mg/dL 0.6-1.0 L [id number] 11:14:00* Test Item Value Reference Range Interpretation Comments HEMOGLOBIN (test code = HGB/ABG) 6.7 G/DL 11.0-15.0 L [id number] 11:14:00* Test Item Value Reference Range Interpretation Comments HEMATOCRIT (test code = HCT/ABG) 20 % 33.0-45.0 L POC IONIZED [id number] 11:14:00* Test Item Value Reference Range Interpretation Comments POC IONIZED CALCIUM (test code = POCCA) 1.09 MMOL/L 1.12-1.32 L POC LACTIC [id number] 11:14:00* Test Item Value Reference Range Interpretation Comments POC LACTIC ACID (test code = POCLAC) 2.0 mmol/l 0.9-1.7 H POC [id number] 11:14:00* Test Item Value Reference Range Interpretation Comments POC GLUCOSE (test code = POCGLU) 144 MG/DL 70-110 H [id number] 10:56:00* Test Item Value Reference Range Interpretation Comments ACT-ISTAT (test code = ACTI) 532 SEC 74-137 H Performed by certified engine lathe set up operator tool at [facility] POC ARTERIAL BLOOD [id number] 10:46:00* Test Item Value Reference Range Interpretation Comments POC ARTERIAL BLOOD GAS PH (test code = POCPHA) 7.445 7.35-7. 45 N POC ARTERIAL BLOOD GAS PCO2 (test code = CYUKDL6X) 38.0 mmHg 35. 0-45 N POC TCO2 ARTERIAL (test code = POCTCO2) 27.3 POC ARTERIAL BLOOD GAS PO2 (test code = SOSZF3V) 229.7 mmHg 80-10 0.0 HH POC HCO3 ARTERIAL (test code = SKPPDP8K) 26.1 MMOL/L 22.0-26.0 H POC BASE EXCESS (test code = POCBEA) 1.9 MMOL/L -4.0-4.0 N POC O2 SATURATION (test code = POCO2S) 99.8 % 90-100 N [id number] 10:46:00* Test Item Value Reference Range Interpretation Comments SODIUM (test code = NA/ABG) MEQ/L 134-147 [id number] 10:46:00* Test Item Value Reference Range Interpretation Comments POTASSIUM (test code = K/ABG) MEQ/L 3.4-5.0 [id number] 10:46:00* Test Item Value Reference Range Interpretation Comments CHLORIDE (test code = CL/ABG) MEQ/L 100-108 CREATININE [id number] 10:46:00* Test Item Value Reference Range Interpretation Comments CREATININE ABG (test code = CREAABG) mg/dL 0.6-1.0 [id number] 10:46:00* Test Item Value Reference Range Interpretation Comments HEMOGLOBIN (test code = HGB/ABG) G/DL 11.0-15.0 [id number] 10:46:00* Test Item Value Reference Range Interpretation Comments HEMATOCRIT (test code = HCT/ABG) % 33.0-45.0 POC IONIZED [id number] 10:46:00* Test Item Value Reference Range Interpretation Comments POC IONIZED CALCIUM (test code = POCCA) MMOL/L 1.12-1.32 POC LACTIC [id number] 10:46:00* Test Item Value Reference Range Interpretation Comments POC LACTIC ACID (test code = POCLAC) mmol/l 0.9-1.7 POC [id number] 10:46:00* Test Item Value Reference Range Interpretation Comments POC GLUCOSE (test code = POCGLU) MG/DL 70-110 POC ARTERIAL BLOOD [id number] 10:46:00* Test Item Value Reference Range Interpretation Comments POC ARTERIAL BLOOD GAS PH (test code = POCPHA) 7.445 7.35-7. 45 N POC ARTERIAL BLOOD GAS PCO2 (test code = AXWFOK7F) 38.0 mmHg 35. 0-45 N POC TCO2 ARTERIAL (test code = POCTCO2) 27.3 POC ARTERIAL BLOOD GAS PO2 (test code = IZRVQ0N) 229.7 mmHg 80-10 0.0 HH POC HCO3 ARTERIAL (test code = GPVOND0F) 26.1 MMOL/L 22.0-26.0 H POC BASE EXCESS (test code = POCBEA) 1.9 MMOL/L -4.0-4.0 N POC O2 SATURATION (test code = POCO2S) 99.8 % 90-100 N [id number] 10:46:00* Test Item Value Reference Range Interpretation Comments SODIUM (test code = NA/ABG) 139 MEQ/L 134-147 N [id number] 10:46:00* Test Item Value Reference Range Interpretation Comments POTASSIUM (test code = K/ABG) MEQ/L 3.4-5.0 [id number] 10:46:00* Test Item Value Reference Range Interpretation Comments CHLORIDE (test code = CL/ABG) MEQ/L 100-108 CREATININE [id number] 10:46:00* Test Item Value Reference Range Interpretation Comments CREATININE ABG (test code = CREAABG) mg/dL 0.6-1.0 [id number] 10:46:00* Test Item Value Reference Range Interpretation Comments HEMOGLOBIN (test code = HGB/ABG) G/DL 11.0-15.0 [id number] 10:46:00* Test Item Value Reference Range Interpretation Comments HEMATOCRIT (test code = HCT/ABG) % 33.0-45.0 POC IONIZED [id number] 10:46:00* Test Item Value Reference Range Interpretation Comments POC IONIZED CALCIUM (test code = POCCA) MMOL/L 1.12-1.32 POC LACTIC [id number] 10:46:00* Test Item Value Reference Range Interpretation Comments POC LACTIC ACID (test code = POCLAC) mmol/l 0.9-1.7 POC [id number] 10:46:00* Test Item Value Reference Range Interpretation Comments POC GLUCOSE (test code = POCGLU) MG/DL 70-110 POC ARTERIAL BLOOD [id number] 10:46:00* Test Item Value Reference Range Interpretation Comments POC ARTERIAL BLOOD GAS PH (test code = POCPHA) 7.445 7.35-7. 45 N POC ARTERIAL BLOOD GAS PCO2 (test code = ILIUCD2I) 38.0 mmHg 35. 0-45 N POC TCO2 ARTERIAL (test code = POCTCO2) 27.3 POC ARTERIAL BLOOD GAS PO2 (test code = VPULM7A) 229.7 mmHg 80-10 0.0 HH POC HCO3 ARTERIAL (test code = CGTMLX4X) 26.1 MMOL/L 22.0-26.0 H POC BASE EXCESS (test code = POCBEA) 1.9 MMOL/L -4.0-4.0 N POC O2 SATURATION (test code = POCO2S) 99.8 % 90-100 N [id number] 10:46:00* Test Item Value Reference Range Interpretation Comments SODIUM (test code = NA/ABG) 139 MEQ/L 134-147 N [id number] 10:46:00* Test Item Value Reference Range Interpretation Comments POTASSIUM (test code = K/ABG) 4.5 MEQ/L 3.4-5.0 N [id number] 10:46:00* Test Item Value Reference Range Interpretation Comments CHLORIDE (test code = CL/ABG) MEQ/L 100-108 CREATININE [id number] 10:46:00* Test Item Value Reference Range Interpretation Comments CREATININE ABG (test code = CREAABG) mg/dL 0.6-1.0 [id number] 10:46:00* Test Item Value Reference Range Interpretation Comments HEMOGLOBIN (test code = HGB/ABG) G/DL 11.0-15.0 [id number] 10:46:00* Test Item Value Reference Range Interpretation Comments HEMATOCRIT (test code = HCT/ABG) % 33.0-45.0 POC IONIZED [id number] 10:46:00* Test Item Value Reference Range Interpretation Comments POC IONIZED CALCIUM (test code = POCCA) MMOL/L 1.12-1.32 POC LACTIC [id number] 10:46:00* Test Item Value Reference Range Interpretation Comments POC LACTIC ACID (test code = POCLAC) mmol/l 0.9-1.7 POC [id number] 10:46:00* Test Item Value Reference Range Interpretation Comments POC GLUCOSE (test code = POCGLU) MG/DL 70-110 POC ARTERIAL BLOOD [id number] 10:46:00* Test Item Value Reference Range Interpretation Comments POC ARTERIAL BLOOD GAS PH (test code = POCPHA) 7.445 7.35-7. 45 N POC ARTERIAL BLOOD GAS PCO2 (test code = NJZDXU9I) 38.0 mmHg 35. 0-45 N POC TCO2 ARTERIAL (test code = POCTCO2) 27.3 POC ARTERIAL BLOOD GAS PO2 (test code = LQBCX7D) 229.7 mmHg 80-10 0.0 HH POC HCO3 ARTERIAL (test code = FDSXXI5U) 26.1 MMOL/L 22.0-26.0 H POC BASE EXCESS (test code = POCBEA) 1.9 MMOL/L -4.0-4.0 N POC O2 SATURATION (test code = POCO2S) 99.8 % 90-100 N [id number] 10:46:00* Test Item Value Reference Range Interpretation Comments SODIUM (test code = NA/ABG) 139 MEQ/L 134-147 N [id number] 10:46:00* Test Item Value Reference Range Interpretation Comments POTASSIUM (test code = K/ABG) 4.5 MEQ/L 3.4-5.0 N [id number] 10:46:00* Test Item Value Reference Range Interpretation Comments CHLORIDE (test code = CL/ABG) MEQ/L 100-108 CREATININE [id number] 10:46:00* Test Item Value Reference Range Interpretation Comments CREATININE ABG (test code = CREAABG) mg/dL 0.6-1.0 [id number] 10:46:00* Test Item Value Reference Range Interpretation Comments HEMOGLOBIN (test code = HGB/ABG) G/DL 11.0-15.0 [id number] 10:46:00* Test Item Value Reference Range Interpretation Comments HEMATOCRIT (test code = HCT/ABG) % 33.0-45.0 POC IONIZED [id number] 10:46:00* Test Item Value Reference Range Interpretation Comments POC IONIZED CALCIUM (test code = POCCA) 1.08 MMOL/L 1.12-1.32 L POC LACTIC [id number] 10:46:00* Test Item Value Reference Range Interpretation Comments POC LACTIC ACID (test code = POCLAC) mmol/l 0.9-1.7 POC [id number] 10:46:00* Test Item Value Reference Range Interpretation Comments POC GLUCOSE (test code = POCGLU) MG/DL 70-110 POC ARTERIAL BLOOD [id number] 10:46:00* Test Item Value Reference Range Interpretation Comments POC ARTERIAL BLOOD GAS PH (test code = POCPHA) 7.445 7.35-7. 45 N POC ARTERIAL BLOOD GAS PCO2 (test code = ZTRPXK9F) 38.0 mmHg 35. 0-45 N POC TCO2 ARTERIAL (test code = POCTCO2) 27.3 POC ARTERIAL BLOOD GAS PO2 (test code = WISTC7G) 229.7 mmHg 80-10 0.0 HH POC HCO3 ARTERIAL (test code = XXLXJR6K) 26.1 MMOL/L 22.0-26.0 H POC BASE EXCESS (test code = POCBEA) 1.9 MMOL/L -4.0-4.0 N POC O2 SATURATION (test code = POCO2S) 99.8 % 90-100 N [id number] 10:46:00* Test Item Value Reference Range Interpretation Comments SODIUM (test code = NA/ABG) 139 MEQ/L 134-147 N [id number] 10:46:00* Test Item Value Reference Range Interpretation Comments POTASSIUM (test code = K/ABG) 4.5 MEQ/L 3.4-5.0 N [id number] 10:46:00* Test Item Value Reference Range Interpretation Comments CHLORIDE (test code = CL/ABG) MEQ/L 100-108 CREATININE [id number] 10:46:00* Test Item Value Reference Range Interpretation Comments CREATININE ABG (test code = CREAABG) mg/dL 0.6-1.0 [id number] 10:46:00* Test Item Value Reference Range Interpretation Comments HEMOGLOBIN (test code = HGB/ABG) G/DL 11.0-15.0 [id number] 10:46:00* Test Item Value Reference Range Interpretation Comments HEMATOCRIT (test code = HCT/ABG) % 33.0-45.0 POC IONIZED [id number] 10:46:00* Test Item Value Reference Range Interpretation Comments POC IONIZED CALCIUM (test code = POCCA) 1.08 MMOL/L 1.12-1.32 L POC LACTIC [id number] 10:46:00* Test Item Value Reference Range Interpretation Comments POC LACTIC ACID (test code = POCLAC) mmol/l 0.9-1.7 POC [id number] 10:46:00* Test Item Value Reference Range Interpretation Comments POC GLUCOSE (test code = POCGLU) 149 MG/DL 70-110 H POC ARTERIAL BLOOD [id number] 10:46:00* Test Item Value Reference Range Interpretation Comments POC ARTERIAL BLOOD GAS PH (test code = POCPHA) 7.445 7.35-7. 45 N POC ARTERIAL BLOOD GAS PCO2 (test code = JEVJZI8E) 38.0 mmHg 35. 0-45 N POC TCO2 ARTERIAL (test code = POCTCO2) 27.3 POC ARTERIAL BLOOD GAS PO2 (test code = IJPYD2G) 229.7 mmHg 80-10 0.0 HH POC HCO3 ARTERIAL (test code = LCTAKR7P) 26.1 MMOL/L 22.0-26.0 H POC BASE EXCESS (test code = POCBEA) 1.9 MMOL/L -4.0-4.0 N POC O2 SATURATION (test code = POCO2S) 99.8 % 90-100 N [id number] 10:46:00* Test Item Value Reference Range Interpretation Comments SODIUM (test code = NA/ABG) 139 MEQ/L 134-147 N [id number] 10:46:00* Test Item Value Reference Range Interpretation Comments POTASSIUM (test code = K/ABG) 4.5 MEQ/L 3.4-5.0 N [id number] 10:46:00* Test Item Value Reference Range Interpretation Comments CHLORIDE (test code = CL/ABG) MEQ/L 100-108 CREATININE [id number] 10:46:00* Test Item Value Reference Range Interpretation Comments CREATININE ABG (test code = CREAABG) mg/dL 0.6-1.0 [id number] 10:46:00* Test Item Value Reference Range Interpretation Comments HEMOGLOBIN (test code = HGB/ABG) G/DL 11.0-15.0 [id number] 10:46:00* Test Item Value Reference Range Interpretation Comments HEMATOCRIT (test code = HCT/ABG) % 33.0-45.0 POC IONIZED [id number] 10:46:00* Test Item Value Reference Range Interpretation Comments POC IONIZED CALCIUM (test code = POCCA) 1.08 MMOL/L 1.12-1.32 L POC LACTIC [id number] 10:46:00* Test Item Value Reference Range Interpretation Comments POC LACTIC ACID (test code = POCLAC) 1.9 mmol/l 0.9-1.7 H POC [id number] 10:46:00* Test Item Value Reference Range Interpretation Comments POC GLUCOSE (test code = POCGLU) 149 MG/DL 70-110 H POC ARTERIAL BLOOD [id number] 10:46:00* Test Item Value Reference Range Interpretation Comments POC ARTERIAL BLOOD GAS PH (test code = POCPHA) 7.445 7.35-7. 45 N POC ARTERIAL BLOOD GAS PCO2 (test code = WIIVPE8G) 38.0 mmHg 35. 0-45 N POC TCO2 ARTERIAL (test code = POCTCO2) 27.3 POC ARTERIAL BLOOD GAS PO2 (test code = PQPBG9J) 229.7 mmHg 80-10 0.0 HH POC HCO3 ARTERIAL (test code = HXSZSB4T) 26.1 MMOL/L 22.0-26.0 H POC BASE EXCESS (test code = POCBEA) 1.9 MMOL/L -4.0-4.0 N POC O2 SATURATION (test code = POCO2S) 99.8 % 90-100 N [id number] 10:46:00* Test Item Value Reference Range Interpretation Comments SODIUM (test code = NA/ABG) 139 MEQ/L 134-147 N [id number] 10:46:00* Test Item Value Reference Range Interpretation Comments POTASSIUM (test code = K/ABG) 4.5 MEQ/L 3.4-5.0 N [id number] 10:46:00* Test Item Value Reference Range Interpretation Comments CHLORIDE (test code = CL/ABG) MEQ/L 100-108 CREATININE [id number] 10:46:00* Test Item Value Reference Range Interpretation Comments CREATININE ABG (test code = CREAABG) mg/dL 0.6-1.0 [id number] 10:46:00* Test Item Value Reference Range Interpretation Comments HEMOGLOBIN (test code = HGB/ABG) G/DL 11.0-15.0 [id number] 10:46:00* Test Item Value Reference Range Interpretation Comments HEMATOCRIT (test code = HCT/ABG) 20 % 33.0-45.0 L POC IONIZED [id number] 10:46:00* Test Item Value Reference Range Interpretation Comments POC IONIZED CALCIUM (test code = POCCA) 1.08 MMOL/L 1.12-1.32 L POC LACTIC [id number] 10:46:00* Test Item Value Reference Range Interpretation Comments POC LACTIC ACID (test code = POCLAC) 1.9 mmol/l 0.9-1.7 H POC [id number] 10:46:00* Test Item Value Reference Range Interpretation Comments POC GLUCOSE (test code = POCGLU) 149 MG/DL 70-110 H POC ARTERIAL BLOOD [id number] 10:46:00* Test Item Value Reference Range Interpretation Comments POC ARTERIAL BLOOD GAS PH (test code = POCPHA) 7.445 7.35-7. 45 N POC ARTERIAL BLOOD GAS PCO2 (test code = SNSLWU0S) 38.0 mmHg 35. 0-45 N POC TCO2 ARTERIAL (test code = POCTCO2) 27.3 POC ARTERIAL BLOOD GAS PO2 (test code = AZIEV1B) 229.7 mmHg 80-10 0.0 HH POC HCO3 ARTERIAL (test code = QBQLGH5L) 26.1 MMOL/L 22.0-26.0 H POC BASE EXCESS (test code = POCBEA) 1.9 MMOL/L -4.0-4.0 N POC O2 SATURATION (test code = POCO2S) 99.8 % 90-100 N [id number] 10:46:00* Test Item Value Reference Range Interpretation Comments SODIUM (test code = NA/ABG) 139 MEQ/L 134-147 N [id number] 10:46:00* Test Item Value Reference Range Interpretation Comments POTASSIUM (test code = K/ABG) 4.5 MEQ/L 3.4-5.0 N [id number] 10:46:00* Test Item Value Reference Range Interpretation Comments CHLORIDE (test code = CL/ABG) MEQ/L 100-108 CREATININE [id number] 10:46:00* Test Item Value Reference Range Interpretation Comments CREATININE ABG (test code = CREAABG) mg/dL 0.6-1.0 [id number] 10:46:00* Test Item Value Reference Range Interpretation Comments HEMOGLOBIN (test code = HGB/ABG) 7.0 G/DL 11.0-15.0 L [id number] 10:46:00* Test Item Value Reference Range Interpretation Comments HEMATOCRIT (test code = HCT/ABG) 20 % 33.0-45.0 L POC IONIZED [id number] 10:46:00* Test Item Value Reference Range Interpretation Comments POC IONIZED CALCIUM (test code = POCCA) 1.08 MMOL/L 1.12-1.32 L POC LACTIC [id number] 10:46:00* Test Item Value Reference Range Interpretation Comments POC LACTIC ACID (test code = POCLAC) 1.9 mmol/l 0.9-1.7 H POC [id number] 10:46:00* Test Item Value Reference Range Interpretation Comments POC GLUCOSE (test code = POCGLU) 149 MG/DL 70-110 H POC ARTERIAL BLOOD [id number] 10:46:00* Test Item Value Reference Range Interpretation Comments POC ARTERIAL BLOOD GAS PH (test code = POCPHA) 7.445 7.35-7. 45 N POC ARTERIAL BLOOD GAS PCO2 (test code = TPGVLK8T) 38.0 mmHg 35. 0-45 N POC TCO2 ARTERIAL (test code = POCTCO2) 27.3 POC ARTERIAL BLOOD GAS PO2 (test code = JKRNF8G) 229.7 mmHg 80-10 0.0 HH POC HCO3 ARTERIAL (test code = GHQOMD7X) 26.1 MMOL/L 22.0-26.0 H POC BASE EXCESS (test code = POCBEA) 1.9 MMOL/L -4.0-4.0 N POC O2 SATURATION (test code = POCO2S) 99.8 % 90-100 N [id number] 10:46:00* Test Item Value Reference Range Interpretation Comments SODIUM (test code = NA/ABG) 139 MEQ/L 134-147 N [id number] 10:46:00* Test Item Value Reference Range Interpretation Comments POTASSIUM (test code = K/ABG) 4.5 MEQ/L 3.4-5.0 N [id number] 10:46:00* Test Item Value Reference Range Interpretation Comments CHLORIDE (test code = CL/ABG) 102 MEQ/L 100-108 N CREATININE [id number] 10:46:00* Test Item Value Reference Range Interpretation Comments CREATININE ABG (test code = CREAABG) mg/dL 0.6-1.0 [id number] 10:46:00* Test Item Value Reference Range Interpretation Comments HEMOGLOBIN (test code = HGB/ABG) 7.0 G/DL 11.0-15.0 L [id number] 10:46:00* Test Item Value Reference Range Interpretation Comments HEMATOCRIT (test code = HCT/ABG) 20 % 33.0-45.0 L POC IONIZED [id number] 10:46:00* Test Item Value Reference Range Interpretation Comments POC IONIZED CALCIUM (test code = POCCA) 1.08 MMOL/L 1.12-1.32 L POC LACTIC [id number] 10:46:00* Test Item Value Reference Range Interpretation Comments POC LACTIC ACID (test code = POCLAC) 1.9 mmol/l 0.9-1.7 H POC [id number] 10:46:00* Test Item Value Reference Range Interpretation Comments POC GLUCOSE (test code = POCGLU) 149 MG/DL 70-110 H POC ARTERIAL BLOOD [id number] 10:46:00* Test Item Value Reference Range Interpretation Comments POC ARTERIAL BLOOD GAS PH (test code = POCPHA) 7.445 7.35-7. 45 N POC ARTERIAL BLOOD GAS PCO2 (test code = WDNBGQ5D) 38.0 mmHg 35. 0-45 N POC TCO2 ARTERIAL (test code = POCTCO2) 27.3 POC ARTERIAL BLOOD GAS PO2 (test code = FTFUN6G) 229.7 mmHg 80-10 0.0 HH POC HCO3 ARTERIAL (test code = LHDDTY8U) 26.1 MMOL/L 22.0-26.0 H POC BASE EXCESS (test code = POCBEA) 1.9 MMOL/L -4.0-4.0 N POC O2 SATURATION (test code = POCO2S) 99.8 % 90-100 N [id number] 10:46:00* Test Item Value Reference Range Interpretation Comments SODIUM (test code = NA/ABG) 139 MEQ/L 134-147 N [id number] 10:46:00* Test Item Value Reference Range Interpretation Comments POTASSIUM (test code = K/ABG) 4.5 MEQ/L 3.4-5.0 N [id number] 10:46:00* Test Item Value Reference Range Interpretation Comments CHLORIDE (test code = CL/ABG) 102 MEQ/L 100-108 N CREATININE [id number] 10:46:00* Test Item Value Reference Range Interpretation Comments CREATININE ABG (test code = CREAABG) 0.7 mg/dL 0.6-1.0 N [id number] 10:46:00* Test Item Value Reference Range Interpretation Comments HEMOGLOBIN (test code = HGB/ABG) 7.0 G/DL 11.0-15.0 L [id number] 10:46:00* Test Item Value Reference Range Interpretation Comments HEMATOCRIT (test code = HCT/ABG) 20 % 33.0-45.0 L POC IONIZED [id number] 10:46:00* Test Item Value Reference Range Interpretation Comments POC IONIZED CALCIUM (test code = POCCA) 1.08 MMOL/L 1.12-1.32 L POC LACTIC [id number] 10:46:00* Test Item Value Reference Range Interpretation Comments POC LACTIC ACID (test code = POCLAC) 1.9 mmol/l 0.9-1.7 H POC [id number] 10:46:00* Test Item Value Reference Range Interpretation Comments POC GLUCOSE (test code = POCGLU) 149 MG/DL 70-110 H [id number] 10:31:00* Test Item Value Reference Range Interpretation Comments ACT-ISTAT (test code = ACTI) 571 SEC 74-137 H Performed by certified engine lathe set up operator tool at [facility] POC ARTERIAL BLOOD [id number] 10:16:00* Test Item Value Reference Range Interpretation Comments POC ARTERIAL BLOOD GAS PH (test code = POCPHA) 7.526 7.35-7. 45 HH POC ARTERIAL BLOOD GAS PCO2 (test code = WOHXME0N) 30.6 mmHg 35. 0-45 L POC TCO2 ARTERIAL (test code = POCTCO2) 26.3 POC ARTERIAL BLOOD GAS PO2 (test code = AUDFQ1Y) 307.7 mmHg 80-10 0.0 HH POC HCO3 ARTERIAL (test code = ESNXCR6A) 25.4 MMOL/L 22.0-26.0 N POC BASE EXCESS (test code = POCBEA) 2.6 MMOL/L -4.0-4.0 N POC O2 SATURATION (test code = POCO2S) 99.9 % 90-100 N [id number] 10:16:00* Test Item Value Reference Range Interpretation Comments SODIUM (test code = NA/ABG) MEQ/L 134-147 [id number] 10:16:00* Test Item Value Reference Range Interpretation Comments POTASSIUM (test code = K/ABG) MEQ/L 3.4-5.0 [id number] 10:16:00* Test Item Value Reference Range Interpretation Comments CHLORIDE (test code = CL/ABG) MEQ/L 100-108 CREATININE [id number] 10:16:00* Test Item Value Reference Range Interpretation Comments CREATININE ABG (test code = CREAABG) mg/dL 0.6-1.0 [id number] 10:16:00* Test Item Value Reference Range Interpretation Comments HEMOGLOBIN (test code = HGB/ABG) G/DL 11.0-15.0 [id number] 10:16:00* Test Item Value Reference Range Interpretation Comments HEMATOCRIT (test code = HCT/ABG) % 33.0-45.0 POC IONIZED [id number] 10:16:00* Test Item Value Reference Range Interpretation Comments POC IONIZED CALCIUM (test code = POCCA) MMOL/L 1.12-1.32 POC LACTIC [id number] 10:16:00* Test Item Value Reference Range Interpretation Comments POC LACTIC ACID (test code = POCLAC) mmol/l 0.9-1.7 POC [id number] 10:16:00* Test Item Value Reference Range Interpretation Comments POC GLUCOSE (test code = POCGLU) MG/DL 70-110 POC ARTERIAL BLOOD [id number] 10:16:00* Test Item Value Reference Range Interpretation Comments POC ARTERIAL BLOOD GAS PH (test code = POCPHA) 7.526 7.35-7. 45 HH POC ARTERIAL BLOOD GAS PCO2 (test code = RYISMB2Z) 30.6 mmHg 35. 0-45 L POC TCO2 ARTERIAL (test code = POCTCO2) 26.3 POC ARTERIAL BLOOD GAS PO2 (test code = ILPND1Q) 307.7 mmHg 80-10 0.0 HH POC HCO3 ARTERIAL (test code = QJABFX2F) 25.4 MMOL/L 22.0-26.0 N POC BASE EXCESS (test code = POCBEA) 2.6 MMOL/L -4.0-4.0 N POC O2 SATURATION (test code = POCO2S) 99.9 % 90-100 N [id number] 10:16:00* Test Item Value Reference Range Interpretation Comments SODIUM (test code = NA/ABG) 138 MEQ/L 134-147 N [id number] 10:16:00* Test Item Value Reference Range Interpretation Comments POTASSIUM (test code = K/ABG) MEQ/L 3.4-5.0 [id number] 10:16:00* Test Item Value Reference Range Interpretation Comments CHLORIDE (test code = CL/ABG) MEQ/L 100-108 CREATININE [id number] 10:16:00* Test Item Value Reference Range Interpretation Comments CREATININE ABG (test code = CREAABG) mg/dL 0.6-1.0 [id number] 10:16:00* Test Item Value Reference Range Interpretation Comments HEMOGLOBIN (test code = HGB/ABG) G/DL 11.0-15.0 [id number] 10:16:00* Test Item Value Reference Range Interpretation Comments HEMATOCRIT (test code = HCT/ABG) % 33.0-45.0 POC IONIZED [id number] 10:16:00* Test Item Value Reference Range Interpretation Comments POC IONIZED CALCIUM (test code = POCCA) MMOL/L 1.12-1.32 POC LACTIC [id number] 10:16:00* Test Item Value Reference Range Interpretation Comments POC LACTIC ACID (test code = POCLAC) mmol/l 0.9-1.7 POC [id number] 10:16:00* Test Item Value Reference Range Interpretation Comments POC GLUCOSE (test code = POCGLU) MG/DL 70-110 POC ARTERIAL BLOOD [id number] 10:16:00* Test Item Value Reference Range Interpretation Comments POC ARTERIAL BLOOD GAS PH (test code = POCPHA) 7.526 7.35-7. 45 HH POC ARTERIAL BLOOD GAS PCO2 (test code = RMYAVZ6C) 30.6 mmHg 35. 0-45 L POC TCO2 ARTERIAL (test code = POCTCO2) 26.3 POC ARTERIAL BLOOD GAS PO2 (test code = AATEK9Q) 307.7 mmHg 80-10 0.0 HH POC HCO3 ARTERIAL (test code = NTPMMZ4G) 25.4 MMOL/L 22.0-26.0 N POC BASE EXCESS (test code = POCBEA) 2.6 MMOL/L -4.0-4.0 N POC O2 SATURATION (test code = POCO2S) 99.9 % 90-100 N [id number] 10:16:00* Test Item Value Reference Range Interpretation Comments SODIUM (test code = NA/ABG) 138 MEQ/L 134-147 N [id number] 10:16:00* Test Item Value Reference Range Interpretation Comments POTASSIUM (test code = K/ABG) 4.7 MEQ/L 3.4-5.0 N [id number] 10:16:00* Test Item Value Reference Range Interpretation Comments CHLORIDE (test code = CL/ABG) MEQ/L 100-108 CREATININE [id number] 10:16:00* Test Item Value Reference Range Interpretation Comments CREATININE ABG (test code = CREAABG) mg/dL 0.6-1.0 [id number] 10:16:00* Test Item Value Reference Range Interpretation Comments HEMOGLOBIN (test code = HGB/ABG) G/DL 11.0-15.0 [id number] 10:16:00* Test Item Value Reference Range Interpretation Comments HEMATOCRIT (test code = HCT/ABG) % 33.0-45.0 POC IONIZED [id number] 10:16:00* Test Item Value Reference Range Interpretation Comments POC IONIZED CALCIUM (test code = POCCA) MMOL/L 1.12-1.32 POC LACTIC [id number] 10:16:00* Test Item Value Reference Range Interpretation Comments POC LACTIC ACID (test code = POCLAC) mmol/l 0.9-1.7 POC [id number] 10:16:00* Test Item Value Reference Range Interpretation Comments POC GLUCOSE (test code = POCGLU) MG/DL 70-110 POC ARTERIAL BLOOD [id number] 10:16:00* Test Item Value Reference Range Interpretation Comments POC ARTERIAL BLOOD GAS PH (test code = POCPHA) 7.526 7.35-7. 45 HH POC ARTERIAL BLOOD GAS PCO2 (test code = AXEFAL2J) 30.6 mmHg 35. 0-45 L POC TCO2 ARTERIAL (test code = POCTCO2) 26.3 POC ARTERIAL BLOOD GAS PO2 (test code = QGJCF7I) 307.7 mmHg 80-10 0.0 HH POC HCO3 ARTERIAL (test code = LOGYFS2Z) 25.4 MMOL/L 22.0-26.0 N POC BASE EXCESS (test code = POCBEA) 2.6 MMOL/L -4.0-4.0 N POC O2 SATURATION (test code = POCO2S) 99.9 % 90-100 N [id number] 10:16:00* Test Item Value Reference Range Interpretation Comments SODIUM (test code = NA/ABG) 138 MEQ/L 134-147 N [id number] 10:16:00* Test Item Value Reference Range Interpretation Comments POTASSIUM (test code = K/ABG) 4.7 MEQ/L 3.4-5.0 N [id number] 10:16:00* Test Item Value Reference Range Interpretation Comments CHLORIDE (test code = CL/ABG) MEQ/L 100-108 CREATININE [id number] 10:16:00* Test Item Value Reference Range Interpretation Comments CREATININE ABG (test code = CREAABG) mg/dL 0.6-1.0 [id number] 10:16:00* Test Item Value Reference Range Interpretation Comments HEMOGLOBIN (test code = HGB/ABG) G/DL 11.0-15.0 [id number] 10:16:00* Test Item Value Reference Range Interpretation Comments HEMATOCRIT (test code = HCT/ABG) % 33.0-45.0 POC IONIZED [id number] 10:16:00* Test Item Value Reference Range Interpretation Comments POC IONIZED CALCIUM (test code = POCCA) 1.05 MMOL/L 1.12-1.32 L POC LACTIC [id number] 10:16:00* Test Item Value Reference Range Interpretation Comments POC LACTIC ACID (test code = POCLAC) mmol/l 0.9-1.7 POC [id number] 10:16:00* Test Item Value Reference Range Interpretation Comments POC GLUCOSE (test code = POCGLU) MG/DL 70-110 POC ARTERIAL BLOOD [id number] 10:16:00* Test Item Value Reference Range Interpretation Comments POC ARTERIAL BLOOD GAS PH (test code = POCPHA) 7.526 7.35-7. 45 HH POC ARTERIAL BLOOD GAS PCO2 (test code = OXDYLQ9X) 30.6 mmHg 35. 0-45 L POC TCO2 ARTERIAL (test code = POCTCO2) 26.3 POC ARTERIAL BLOOD GAS PO2 (test code = SEIYH6C) 307.7 mmHg 80-10 0.0 HH POC HCO3 ARTERIAL (test code = KOVYJK0A) 25.4 MMOL/L 22.0-26.0 N POC BASE EXCESS (test code = POCBEA) 2.6 MMOL/L -4.0-4.0 N POC O2 SATURATION (test code = POCO2S) 99.9 % 90-100 N [id number] 10:16:00* Test Item Value Reference Range Interpretation Comments SODIUM (test code = NA/ABG) 138 MEQ/L 134-147 N [id number] 10:16:00* Test Item Value Reference Range Interpretation Comments POTASSIUM (test code = K/ABG) 4.7 MEQ/L 3.4-5.0 N [id number] 10:16:00* Test Item Value Reference Range Interpretation Comments CHLORIDE (test code = CL/ABG) MEQ/L 100-108 CREATININE [id number] 10:16:00* Test Item Value Reference Range Interpretation Comments CREATININE ABG (test code = CREAABG) mg/dL 0.6-1.0 [id number] 10:16:00* Test Item Value Reference Range Interpretation Comments HEMOGLOBIN (test code = HGB/ABG) G/DL 11.0-15.0 [id number] 10:16:00* Test Item Value Reference Range Interpretation Comments HEMATOCRIT (test code = HCT/ABG) % 33.0-45.0 POC IONIZED [id number] 10:16:00* Test Item Value Reference Range Interpretation Comments POC IONIZED CALCIUM (test code = POCCA) 1.05 MMOL/L 1.12-1.32 L POC LACTIC [id number] 10:16:00* Test Item Value Reference Range Interpretation Comments POC LACTIC ACID (test code = POCLAC) mmol/l 0.9-1.7 POC [id number] 10:16:00* Test Item Value Reference Range Interpretation Comments POC GLUCOSE (test code = POCGLU) 151 MG/DL 70-110 H POC ARTERIAL BLOOD [id number] 10:16:00* Test Item Value Reference Range Interpretation Comments POC ARTERIAL BLOOD GAS PH (test code = POCPHA) 7.526 7.35-7. 45 HH POC ARTERIAL BLOOD GAS PCO2 (test code = KKRTBB3N) 30.6 mmHg 35. 0-45 L POC TCO2 ARTERIAL (test code = POCTCO2) 26.3 POC ARTERIAL BLOOD GAS PO2 (test code = ZTSXF3E) 307.7 mmHg 80-10 0.0 HH POC HCO3 ARTERIAL (test code = QGKDTW6O) 25.4 MMOL/L 22.0-26.0 N POC BASE EXCESS (test code = POCBEA) 2.6 MMOL/L -4.0-4.0 N POC O2 SATURATION (test code = POCO2S) 99.9 % 90-100 N [id number] 10:16:00* Test Item Value Reference Range Interpretation Comments SODIUM (test code = NA/ABG) 138 MEQ/L 134-147 N [id number] 10:16:00* Test Item Value Reference Range Interpretation Comments POTASSIUM (test code = K/ABG) 4.7 MEQ/L 3.4-5.0 N [id number] 10:16:00* Test Item Value Reference Range Interpretation Comments CHLORIDE (test code = CL/ABG) MEQ/L 100-108 CREATININE [id number] 10:16:00* Test Item Value Reference Range Interpretation Comments CREATININE ABG (test code = CREAABG) mg/dL 0.6-1.0 [id number] 10:16:00* Test Item Value Reference Range Interpretation Comments HEMOGLOBIN (test code = HGB/ABG) G/DL 11.0-15.0 [id number] 10:16:00* Test Item Value Reference Range Interpretation Comments HEMATOCRIT (test code = HCT/ABG) % 33.0-45.0 POC IONIZED [id number] 10:16:00* Test Item Value Reference Range Interpretation Comments POC IONIZED CALCIUM (test code = POCCA) 1.05 MMOL/L 1.12-1.32 L POC LACTIC [id number] 10:16:00* Test Item Value Reference Range Interpretation Comments POC LACTIC ACID (test code = POCLAC) 1.7 mmol/l 0.9-1.7 N POC [id number] 10:16:00* Test Item Value Reference Range Interpretation Comments POC GLUCOSE (test code = POCGLU) 151 MG/DL 70-110 H POC ARTERIAL BLOOD [id number] 10:16:00* Test Item Value Reference Range Interpretation Comments POC ARTERIAL BLOOD GAS PH (test code = POCPHA) 7.526 7.35-7. 45 HH POC ARTERIAL BLOOD GAS PCO2 (test code = SONWVJ3Y) 30.6 mmHg 35. 0-45 L POC TCO2 ARTERIAL (test code = POCTCO2) 26.3 POC ARTERIAL BLOOD GAS PO2 (test code = NEUFY6L) 307.7 mmHg 80-10 0.0 HH POC HCO3 ARTERIAL (test code = FYVWEX1D) 25.4 MMOL/L 22.0-26.0 N POC BASE EXCESS (test code = POCBEA) 2.6 MMOL/L -4.0-4.0 N POC O2 SATURATION (test code = POCO2S) 99.9 % 90-100 N [id number] 10:16:00* Test Item Value Reference Range Interpretation Comments SODIUM (test code = NA/ABG) 138 MEQ/L 134-147 N [id number] 10:16:00* Test Item Value Reference Range Interpretation Comments POTASSIUM (test code = K/ABG) 4.7 MEQ/L 3.4-5.0 N [id number] 10:16:00* Test Item Value Reference Range Interpretation Comments CHLORIDE (test code = CL/ABG) MEQ/L 100-108 CREATININE [id number] 10:16:00* Test Item Value Reference Range Interpretation Comments CREATININE ABG (test code = CREAABG) mg/dL 0.6-1.0 [id number] 10:16:00* Test Item Value Reference Range Interpretation Comments HEMOGLOBIN (test code = HGB/ABG) G/DL 11.0-15.0 [id number] 10:16:00* Test Item Value Reference Range Interpretation Comments HEMATOCRIT (test code = HCT/ABG) 21 % 33.0-45.0 L POC IONIZED [id number] 10:16:00* Test Item Value Reference Range Interpretation Comments POC IONIZED CALCIUM (test code = POCCA) 1.05 MMOL/L 1.12-1.32 L POC LACTIC [id number] 10:16:00* Test Item Value Reference Range Interpretation Comments POC LACTIC ACID (test code = POCLAC) 1.7 mmol/l 0.9-1.7 N POC [id number] 10:16:00* Test Item Value Reference Range Interpretation Comments POC GLUCOSE (test code = POCGLU) 151 MG/DL 70-110 H POC ARTERIAL BLOOD [id number] 10:16:00* Test Item Value Reference Range Interpretation Comments POC ARTERIAL BLOOD GAS PH (test code = POCPHA) 7.526 7.35-7. 45 HH POC ARTERIAL BLOOD GAS PCO2 (test code = KJNUWK7F) 30.6 mmHg 35. 0-45 L POC TCO2 ARTERIAL (test code = POCTCO2) 26.3 POC ARTERIAL BLOOD GAS PO2 (test code = WZAZW2Q) 307.7 mmHg 80-10 0.0 HH POC HCO3 ARTERIAL (test code = WCLDQS6L) 25.4 MMOL/L 22.0-26.0 N POC BASE EXCESS (test code = POCBEA) 2.6 MMOL/L -4.0-4.0 N POC O2 SATURATION (test code = POCO2S) 99.9 % 90-100 N [id number] 10:16:00* Test Item Value Reference Range Interpretation Comments SODIUM (test code = NA/ABG) 138 MEQ/L 134-147 N [id number] 10:16:00* Test Item Value Reference Range Interpretation Comments POTASSIUM (test code = K/ABG) 4.7 MEQ/L 3.4-5.0 N [id number] 10:16:00* Test Item Value Reference Range Interpretation Comments CHLORIDE (test code = CL/ABG) MEQ/L 100-108 CREATININE [id number] 10:16:00* Test Item Value Reference Range Interpretation Comments CREATININE ABG (test code = CREAABG) mg/dL 0.6-1.0 [id number] 10:16:00* Test Item Value Reference Range Interpretation Comments HEMOGLOBIN (test code = HGB/ABG) 7.2 G/DL 11.0-15.0 L [id number] 10:16:00* Test Item Value Reference Range Interpretation Comments HEMATOCRIT (test code = HCT/ABG) 21 % 33.0-45.0 L POC IONIZED [id number] 10:16:00* Test Item Value Reference Range Interpretation Comments POC IONIZED CALCIUM (test code = POCCA) 1.05 MMOL/L 1.12-1.32 L POC LACTIC [id number] 10:16:00* Test Item Value Reference Range Interpretation Comments POC LACTIC ACID (test code = POCLAC) 1.7 mmol/l 0.9-1.7 N POC [id number] 10:16:00* Test Item Value Reference Range Interpretation Comments POC GLUCOSE (test code = POCGLU) 151 MG/DL 70-110 H POC ARTERIAL BLOOD [id number] 10:16:00* Test Item Value Reference Range Interpretation Comments POC ARTERIAL BLOOD GAS PH (test code = POCPHA) 7.526 7.35-7. 45 HH POC ARTERIAL BLOOD GAS PCO2 (test code = ZBINBB4W) 30.6 mmHg 35. 0-45 L POC TCO2 ARTERIAL (test code = POCTCO2) 26.3 POC ARTERIAL BLOOD GAS PO2 (test code = NNIYS0M) 307.7 mmHg 80-10 0.0 HH POC HCO3 ARTERIAL (test code = ORZQMY4K) 25.4 MMOL/L 22.0-26.0 N POC BASE EXCESS (test code = POCBEA) 2.6 MMOL/L -4.0-4.0 N POC O2 SATURATION (test code = POCO2S) 99.9 % 90-100 N [id number] 10:16:00* Test Item Value Reference Range Interpretation Comments SODIUM (test code = NA/ABG) 138 MEQ/L 134-147 N [id number] 10:16:00* Test Item Value Reference Range Interpretation Comments POTASSIUM (test code = K/ABG) 4.7 MEQ/L 3.4-5.0 N [id number] 10:16:00* Test Item Value Reference Range Interpretation Comments CHLORIDE (test code = CL/ABG) 101 MEQ/L 100-108 N CREATININE [id number] 10:16:00* Test Item Value Reference Range Interpretation Comments CREATININE ABG (test code = CREAABG) mg/dL 0.6-1.0 [id number] 10:16:00* Test Item Value Reference Range Interpretation Comments HEMOGLOBIN (test code = HGB/ABG) 7.2 G/DL 11.0-15.0 L [id number] 10:16:00* Test Item Value Reference Range Interpretation Comments HEMATOCRIT (test code = HCT/ABG) 21 % 33.0-45.0 L POC IONIZED [id number] 10:16:00* Test Item Value Reference Range Interpretation Comments POC IONIZED CALCIUM (test code = POCCA) 1.05 MMOL/L 1.12-1.32 L POC LACTIC [id number] 10:16:00* Test Item Value Reference Range Interpretation Comments POC LACTIC ACID (test code = POCLAC) 1.7 mmol/l 0.9-1.7 N POC [id number] 10:16:00* Test Item Value Reference Range Interpretation Comments POC GLUCOSE (test code = POCGLU) 151 MG/DL 70-110 H POC ARTERIAL BLOOD [id number] 10:16:00* Test Item Value Reference Range Interpretation Comments POC ARTERIAL BLOOD GAS PH (test code = POCPHA) 7.526 7.35-7. 45 HH POC ARTERIAL BLOOD GAS PCO2 (test code = PWEZGM2S) 30.6 mmHg 35. 0-45 L POC TCO2 ARTERIAL (test code = POCTCO2) 26.3 POC ARTERIAL BLOOD GAS PO2 (test code = DDZWA9X) 307.7 mmHg 80-10 0.0 HH POC HCO3 ARTERIAL (test code = AJZMMF9L) 25.4 MMOL/L 22.0-26.0 N POC BASE EXCESS (test code = POCBEA) 2.6 MMOL/L -4.0-4.0 N POC O2 SATURATION (test code = POCO2S) 99.9 % 90-100 N [id number] 10:16:00* Test Item Value Reference Range Interpretation Comments SODIUM (test code = NA/ABG) 138 MEQ/L 134-147 N [id number] 10:16:00* Test Item Value Reference Range Interpretation Comments POTASSIUM (test code = K/ABG) 4.7 MEQ/L 3.4-5.0 N [id number] 10:16:00* Test Item Value Reference Range Interpretation Comments CHLORIDE (test code = CL/ABG) 101 MEQ/L 100-108 N CREATININE [id number] 10:16:00* Test Item Value Reference Range Interpretation Comments CREATININE ABG (test code = CREAABG) 0.7 mg/dL 0.6-1.0 [id number] 10:16:00* Test Item Value Reference Range Interpretation Comments HEMOGLOBIN (test code = HGB/ABG) 7.2 G/DL 11.0-15.0 L [id number] 10:16:00* Test Item Value Reference Range Interpretation Comments HEMATOCRIT (test code = HCT/ABG) 21 % 33.0-45.0 L POC IONIZED [id number] 10:16:00* Test Item Value Reference Range Interpretation Comments POC IONIZED CALCIUM (test code = POCCA) 1.05 MMOL/L 1.12-1.32 L POC LACTIC [id number] 10:16:00* Test Item Value Reference Range Interpretation Comments POC LACTIC ACID (test code = POCLAC) 1.7 mmol/l 0.9-1.7 N POC [id number] 10:16:00* Test Item Value Reference Range Interpretation Comments POC GLUCOSE (test code = POCGLU) 151 MG/DL 70-110 H [id number] 10:05:00* Test Item Value Reference Range Interpretation Comments ACT-ISTAT (test code = ACTI) 466 SEC 74-137 H Performed by certified engine lathe set up operator tool at [facility] POC ARTERIAL BLOOD [id number] 09:57:00* Test Item Value Reference Range Interpretation Comments POC ARTERIAL BLOOD GAS PH (test code = POCPHA) 7.494 7.35-7. 45 H POC ARTERIAL BLOOD GAS PCO2 (test code = GQQBWG4D) 29.8 mmHg 35. 0-45 LL POC TCO2 ARTERIAL (test code = POCTCO2) 23.8 POC ARTERIAL BLOOD GAS PO2 (test code = ZZUHK7T) 547.2 mmHg 80-10 0.0 HH POC HCO3 ARTERIAL (test code = AGHZEL3M) 22.9 MMOL/L 22.0-26.0 N POC BASE EXCESS (test code = POCBEA) -0.2 MMOL/L -4.0-4.0 N POC O2 SATURATION (test code = POCO2S) 100.0 % 90-100 N [id number] 09:57:00* Test Item Value Reference Range Interpretation Comments SODIUM (test code = NA/ABG) MEQ/L 134-147 [id number] 09:57:00* Test Item Value Reference Range Interpretation Comments POTASSIUM (test code = K/ABG) MEQ/L 3.4-5.0 [id number] 09:57:00* Test Item Value Reference Range Interpretation Comments CHLORIDE (test code = CL/ABG) MEQ/L 100-108 CREATININE [id number] 09:57:00* Test Item Value Reference Range Interpretation Comments CREATININE ABG (test code = CREAABG) mg/dL 0.6-1.0 [id number] 09:57:00* Test Item Value Reference Range Interpretation Comments HEMOGLOBIN (test code = HGB/ABG) G/DL 11.0-15.0 [id number] 09:57:00* Test Item Value Reference Range Interpretation Comments HEMATOCRIT (test code = HCT/ABG) % 33.0-45.0 POC IONIZED [id number] 09:57:00* Test Item Value Reference Range Interpretation Comments POC IONIZED CALCIUM (test code = POCCA) MMOL/L 1.12-1.32 POC LACTIC [id number] 09:57:00* Test Item Value Reference Range Interpretation Comments POC LACTIC ACID (test code = POCLAC) mmol/l 0.9-1.7 POC [id number] 09:57:00* Test Item Value Reference Range Interpretation Comments POC GLUCOSE (test code = POCGLU) MG/DL 70-110 POC ARTERIAL BLOOD [id number] 09:57:00* Test Item Value Reference Range Interpretation Comments POC ARTERIAL BLOOD GAS PH (test code = POCPHA) 7.494 7.35-7. 45 H POC ARTERIAL BLOOD GAS PCO2 (test code = HTUAXP2K) 29.8 mmHg 35. 0-45 LL POC TCO2 ARTERIAL (test code = POCTCO2) 23.8 POC ARTERIAL BLOOD GAS PO2 (test code = YYWEJ6M) 547.2 mmHg 80-10 0.0 HH POC HCO3 ARTERIAL (test code = CXFLCN4J) 22.9 MMOL/L 22.0-26.0 N POC BASE EXCESS (test code = POCBEA) -0.2 MMOL/L -4.0-4.0 N POC O2 SATURATION (test code = POCO2S) 100.0 % 90-100 N [id number] 09:57:00* Test Item Value Reference Range Interpretation Comments SODIUM (test code = NA/ABG) 137 MEQ/L 134-147 N [id number] 09:57:00* Test Item Value Reference Range Interpretation Comments POTASSIUM (test code = K/ABG) MEQ/L 3.4-5.0 [id number] 09:57:00* Test Item Value Reference Range Interpretation Comments CHLORIDE (test code = CL/ABG) MEQ/L 100-108 CREATININE [id number] 09:57:00* Test Item Value Reference Range Interpretation Comments CREATININE ABG (test code = CREAABG) mg/dL 0.6-1.0 [id number] 09:57:00* Test Item Value Reference Range Interpretation Comments HEMOGLOBIN (test code = HGB/ABG) G/DL 11.0-15.0 [id number] 09:57:00* Test Item Value Reference Range Interpretation Comments HEMATOCRIT (test code = HCT/ABG) % 33.0-45.0 POC IONIZED [id number] 09:57:00* Test Item Value Reference Range Interpretation Comments POC IONIZED CALCIUM (test code = POCCA) MMOL/L 1.12-1.32 POC LACTIC [id number] 09:57:00* Test Item Value Reference Range Interpretation Comments POC LACTIC ACID (test code = POCLAC) mmol/l 0.9-1.7 POC [id number] 09:57:00* Test Item Value Reference Range Interpretation Comments POC GLUCOSE (test code = POCGLU) MG/DL 70-110 POC ARTERIAL BLOOD [id number] 09:57:00* Test Item Value Reference Range Interpretation Comments POC ARTERIAL BLOOD GAS PH (test code = POCPHA) 7.494 7.35-7. 45 H POC ARTERIAL BLOOD GAS PCO2 (test code = PCHWGU0F) 29.8 mmHg 35. 0-45 LL POC TCO2 ARTERIAL (test code = POCTCO2) 23.8 POC ARTERIAL BLOOD GAS PO2 (test code = JSVWC7S) 547.2 mmHg 80-10 0.0 HH POC HCO3 ARTERIAL (test code = VSPYKD2U) 22.9 MMOL/L 22.0-26.0 N POC BASE EXCESS (test code = POCBEA) -0.2 MMOL/L -4.0-4.0 N POC O2 SATURATION (test code = POCO2S) 100.0 % 90-100 N [id number] 09:57:00* Test Item Value Reference Range Interpretation Comments SODIUM (test code = NA/ABG) 137 MEQ/L 134-147 N [id number] 09:57:00* Test Item Value Reference Range Interpretation Comments POTASSIUM (test code = K/ABG) 4.5 MEQ/L 3.4-5.0 N [id number] 09:57:00* Test Item Value Reference Range Interpretation Comments CHLORIDE (test code = CL/ABG) MEQ/L 100-108 CREATININE [id number] 09:57:00* Test Item Value Reference Range Interpretation Comments CREATININE ABG (test code = CREAABG) mg/dL 0.6-1.0 [id number] 09:57:00* Test Item Value Reference Range Interpretation Comments HEMOGLOBIN (test code = HGB/ABG) G/DL 11.0-15.0 [id number] 09:57:00* Test Item Value Reference Range Interpretation Comments HEMATOCRIT (test code = HCT/ABG) % 33.0-45.0 POC IONIZED [id number] 09:57:00* Test Item Value Reference Range Interpretation Comments POC IONIZED CALCIUM (test code = POCCA) MMOL/L 1.12-1.32 POC LACTIC [id number] 09:57:00* Test Item Value Reference Range Interpretation Comments POC LACTIC ACID (test code = POCLAC) mmol/l 0.9-1.7 POC [id number] 09:57:00* Test Item Value Reference Range Interpretation Comments POC GLUCOSE (test code = POCGLU) MG/DL 70-110 POC ARTERIAL BLOOD [id number] 09:57:00* Test Item Value Reference Range Interpretation Comments POC ARTERIAL BLOOD GAS PH (test code = POCPHA) 7.494 7.35-7. 45 H POC ARTERIAL BLOOD GAS PCO2 (test code = UJJBUI9F) 29.8 mmHg 35. 0-45 LL POC TCO2 ARTERIAL (test code = POCTCO2) 23.8 POC ARTERIAL BLOOD GAS PO2 (test code = TAFNE6D) 547.2 mmHg 80-10 0.0 HH POC HCO3 ARTERIAL (test code = KRSYBR9Q) 22.9 MMOL/L 22.0-26.0 N POC BASE EXCESS (test code = POCBEA) -0.2 MMOL/L -4.0-4.0 N POC O2 SATURATION (test code = POCO2S) 100.0 % 90-100 N [id number] 09:57:00* Test Item Value Reference Range Interpretation Comments SODIUM (test code = NA/ABG) 137 MEQ/L 134-147 N [id number] 09:57:00* Test Item Value Reference Range Interpretation Comments POTASSIUM (test code = K/ABG) 4.5 MEQ/L 3.4-5.0 N [id number] 09:57:00* Test Item Value Reference Range Interpretation Comments CHLORIDE (test code = CL/ABG) MEQ/L 100-108 CREATININE [id number] 09:57:00* Test Item Value Reference Range Interpretation Comments CREATININE ABG (test code = CREAABG) mg/dL 0.6-1.0 [id number] 09:57:00* Test Item Value Reference Range Interpretation Comments HEMOGLOBIN (test code = HGB/ABG) G/DL 11.0-15.0 [id number] 09:57:00* Test Item Value Reference Range Interpretation Comments HEMATOCRIT (test code = HCT/ABG) % 33.0-45.0 POC IONIZED [id number] 09:57:00* Test Item Value Reference Range Interpretation Comments POC IONIZED CALCIUM (test code = POCCA) 1.00 MMOL/L 1.12-1.32 L POC LACTIC [id number] 09:57:00* Test Item Value Reference Range Interpretation Comments POC LACTIC ACID (test code = POCLAC) mmol/l 0.9-1.7 POC [id number] 09:57:00* Test Item Value Reference Range Interpretation Comments POC GLUCOSE (test code = POCGLU) MG/DL 70-110 POC ARTERIAL BLOOD [id number] 09:57:00* Test Item Value Reference Range Interpretation Comments POC ARTERIAL BLOOD GAS PH (test code = POCPHA) 7.494 7.35-7. 45 H POC ARTERIAL BLOOD GAS PCO2 (test code = SYRKQW1O) 29.8 mmHg 35. 0-45 LL POC TCO2 ARTERIAL (test code = POCTCO2) 23.8 POC ARTERIAL BLOOD GAS PO2 (test code = TDGCH4O) 547.2 mmHg 80-10 0.0 HH POC HCO3 ARTERIAL (test code = KIIIOM8S) 22.9 MMOL/L 22.0-26.0 N POC BASE EXCESS (test code = POCBEA) -0.2 MMOL/L -4.0-4.0 N POC O2 SATURATION (test code = POCO2S) 100.0 % 90-100 N [id number] 09:57:00* Test Item Value Reference Range Interpretation Comments SODIUM (test code = NA/ABG) 137 MEQ/L 134-147 N [id number] 09:57:00* Test Item Value Reference Range Interpretation Comments POTASSIUM (test code = K/ABG) 4.5 MEQ/L 3.4-5.0 N [id number] 09:57:00* Test Item Value Reference Range Interpretation Comments CHLORIDE (test code = CL/ABG) MEQ/L 100-108 CREATININE [id number] 09:57:00* Test Item Value Reference Range Interpretation Comments CREATININE ABG (test code = CREAABG) mg/dL 0.6-1.0 [id number] 09:57:00* Test Item Value Reference Range Interpretation Comments HEMOGLOBIN (test code = HGB/ABG) G/DL 11.0-15.0 [id number] 09:57:00* Test Item Value Reference Range Interpretation Comments HEMATOCRIT (test code = HCT/ABG) % 33.0-45.0 POC IONIZED [id number] 09:57:00* Test Item Value Reference Range Interpretation Comments POC IONIZED CALCIUM (test code = POCCA) 1.00 MMOL/L 1.12-1.32 L POC LACTIC [id number] 09:57:00* Test Item Value Reference Range Interpretation Comments POC LACTIC ACID (test code = POCLAC) mmol/l 0.9-1.7 POC [id number] 09:57:00* Test Item Value Reference Range Interpretation Comments POC GLUCOSE (test code = POCGLU) 134 MG/DL 70-110 H POC ARTERIAL BLOOD [id number] 09:57:00* Test Item Value Reference Range Interpretation Comments POC ARTERIAL BLOOD GAS PH (test code = POCPHA) 7.494 7.35-7. 45 H POC ARTERIAL BLOOD GAS PCO2 (test code = HFQEHX6K) 29.8 mmHg 35. 0-45 LL POC TCO2 ARTERIAL (test code = POCTCO2) 23.8 POC ARTERIAL BLOOD GAS PO2 (test code = KTXLX1I) 547.2 mmHg 80-10 0.0 HH POC HCO3 ARTERIAL (test code = KTPPNB0U) 22.9 MMOL/L 22.0-26.0 N POC BASE EXCESS (test code = POCBEA) -0.2 MMOL/L -4.0-4.0 N POC O2 SATURATION (test code = POCO2S) 100.0 % 90-100 N [id number] 09:57:00* Test Item Value Reference Range Interpretation Comments SODIUM (test code = NA/ABG) 137 MEQ/L 134-147 N [id number] 09:57:00* Test Item Value Reference Range Interpretation Comments POTASSIUM (test code = K/ABG) 4.5 MEQ/L 3.4-5.0 N [id number] 09:57:00* Test Item Value Reference Range Interpretation Comments CHLORIDE (test code = CL/ABG) MEQ/L 100-108 CREATININE [id number] 09:57:00* Test Item Value Reference Range Interpretation Comments CREATININE ABG (test code = CREAABG) mg/dL 0.6-1.0 [id number] 09:57:00* Test Item Value Reference Range Interpretation Comments HEMOGLOBIN (test code = HGB/ABG) G/DL 11.0-15.0 [id number] 09:57:00* Test Item Value Reference Range Interpretation Comments HEMATOCRIT (test code = HCT/ABG) % 33.0-45.0 POC IONIZED [id number] 09:57:00* Test Item Value Reference Range Interpretation Comments POC IONIZED CALCIUM (test code = POCCA) 1.00 MMOL/L 1.12-1.32 L POC LACTIC [id number] 09:57:00* Test Item Value Reference Range Interpretation Comments POC LACTIC ACID (test code = POCLAC) 1.8 mmol/l 0.9-1.7 H POC [id number] 09:57:00* Test Item Value Reference Range Interpretation Comments POC GLUCOSE (test code = POCGLU) 134 MG/DL 70-110 H POC ARTERIAL BLOOD [id number] 09:57:00* Test Item Value Reference Range Interpretation Comments POC ARTERIAL BLOOD GAS PH (test code = POCPHA) 7.494 7.35-7. 45 H POC ARTERIAL BLOOD GAS PCO2 (test code = ESRYJH4Q) 29.8 mmHg 35. 0-45 LL POC TCO2 ARTERIAL (test code = POCTCO2) 23.8 POC ARTERIAL BLOOD GAS PO2 (test code = IGVYQ7R) 547.2 mmHg 80-10 0.0 HH POC HCO3 ARTERIAL (test code = HNQEBM1C) 22.9 MMOL/L 22.0-26.0 N POC BASE EXCESS (test code = POCBEA) -0.2 MMOL/L -4.0-4.0 N POC O2 SATURATION (test code = POCO2S) 100.0 % 90-100 N [id number] 09:57:00* Test Item Value Reference Range Interpretation Comments SODIUM (test code = NA/ABG) 137 MEQ/L 134-147 N [id number] 09:57:00* Test Item Value Reference Range Interpretation Comments POTASSIUM (test code = K/ABG) 4.5 MEQ/L 3.4-5.0 N [id number] 09:57:00* Test Item Value Reference Range Interpretation Comments CHLORIDE (test code = CL/ABG) MEQ/L 100-108 CREATININE [id number] 09:57:00* Test Item Value Reference Range Interpretation Comments CREATININE ABG (test code = CREAABG) mg/dL 0.6-1.0 [id number] 09:57:00* Test Item Value Reference Range Interpretation Comments HEMOGLOBIN (test code = HGB/ABG) G/DL 11.0-15.0 [id number] 09:57:00* Test Item Value Reference Range Interpretation Comments HEMATOCRIT (test code = HCT/ABG) 20 % 33.0-45.0 L POC IONIZED [id number] 09:57:00* Test Item Value Reference Range Interpretation Comments POC IONIZED CALCIUM (test code = POCCA) 1.00 MMOL/L 1.12-1.32 L POC LACTIC [id number] 09:57:00* Test Item Value Reference Range Interpretation Comments POC LACTIC ACID (test code = POCLAC) 1.8 mmol/l 0.9-1.7 H POC [id number] 09:57:00* Test Item Value Reference Range Interpretation Comments POC GLUCOSE (test code = POCGLU) 134 MG/DL 70-110 H POC ARTERIAL BLOOD [id number] 09:57:00* Test Item Value Reference Range Interpretation Comments POC ARTERIAL BLOOD GAS PH (test code = POCPHA) 7.494 7.35-7. 45 H POC ARTERIAL BLOOD GAS PCO2 (test code = JVLOFW4T) 29.8 mmHg 35. 0-45 LL POC TCO2 ARTERIAL (test code = POCTCO2) 23.8 POC ARTERIAL BLOOD GAS PO2 (test code = ECWCD1J) 547.2 mmHg 80-10 0.0 HH POC HCO3 ARTERIAL (test code = ANHMMT0I) 22.9 MMOL/L 22.0-26.0 N POC BASE EXCESS (test code = POCBEA) -0.2 MMOL/L -4.0-4.0 N POC O2 SATURATION (test code = POCO2S) 100.0 % 90-100 N [id number] 09:57:00* Test Item Value Reference Range Interpretation Comments SODIUM (test code = NA/ABG) 137 MEQ/L 134-147 N [id number] 09:57:00* Test Item Value Reference Range Interpretation Comments POTASSIUM (test code = K/ABG) 4.5 MEQ/L 3.4-5.0 N [id number] 09:57:00* Test Item Value Reference Range Interpretation Comments CHLORIDE (test code = CL/ABG) MEQ/L 100-108 CREATININE [id number] 09:57:00* Test Item Value Reference Range Interpretation Comments CREATININE ABG (test code = CREAABG) mg/dL 0.6-1.0 [id number] 09:57:00* Test Item Value Reference Range Interpretation Comments HEMOGLOBIN (test code = HGB/ABG) 6.9 G/DL 11.0-15.0 L [id number] 09:57:00* Test Item Value Reference Range Interpretation Comments HEMATOCRIT (test code = HCT/ABG) 20 % 33.0-45.0 L POC IONIZED [id number] 09:57:00* Test Item Value Reference Range Interpretation Comments POC IONIZED CALCIUM (test code = POCCA) 1.00 MMOL/L 1.12-1.32 L POC LACTIC [id number] 09:57:00* Test Item Value Reference Range Interpretation Comments POC LACTIC ACID (test code = POCLAC) 1.8 mmol/l 0.9-1.7 H POC [id number] 09:57:00* Test Item Value Reference Range Interpretation Comments POC GLUCOSE (test code = POCGLU) 134 MG/DL 70-110 H POC ARTERIAL BLOOD [id number] 09:57:00* Test Item Value Reference Range Interpretation Comments POC ARTERIAL BLOOD GAS PH (test code = POCPHA) 7.494 7.35-7. 45 H POC ARTERIAL BLOOD GAS PCO2 (test code = GEGMTB5X) 29.8 mmHg 35. 0-45 LL POC TCO2 ARTERIAL (test code = POCTCO2) 23.8 POC ARTERIAL BLOOD GAS PO2 (test code = RIKTR6I) 547.2 mmHg 80-10 0.0 HH POC HCO3 ARTERIAL (test code = DYSEXG2J) 22.9 MMOL/L 22.0-26.0 N POC BASE EXCESS (test code = POCBEA) -0.2 MMOL/L -4.0-4.0 N POC O2 SATURATION (test code = POCO2S) 100.0 % 90-100 N [id number] 09:57:00* Test Item Value Reference Range Interpretation Comments SODIUM (test code = NA/ABG) 137 MEQ/L 134-147 N [id number] 09:57:00* Test Item Value Reference Range Interpretation Comments POTASSIUM (test code = K/ABG) 4.5 MEQ/L 3.4-5.0 N [id number] 09:57:00* Test Item Value Reference Range Interpretation Comments CHLORIDE (test code = CL/ABG) 100 MEQ/L 100-108 N CREATININE [id number] 09:57:00* Test Item Value Reference Range Interpretation Comments CREATININE ABG (test code = CREAABG) mg/dL 0.6-1.0 [id number] 09:57:00* Test Item Value Reference Range Interpretation Comments HEMOGLOBIN (test code = HGB/ABG) 6.9 G/DL 11.0-15.0 L [id number] 09:57:00* Test Item Value Reference Range Interpretation Comments HEMATOCRIT (test code = HCT/ABG) 20 % 33.0-45.0 L POC IONIZED [id number] 09:57:00* Test Item Value Reference Range Interpretation Comments POC IONIZED CALCIUM (test code = POCCA) 1.00 MMOL/L 1.12-1.32 L POC LACTIC [id number] 09:57:00* Test Item Value Reference Range Interpretation Comments POC LACTIC ACID (test code = POCLAC) 1.8 mmol/l 0.9-1.7 H POC [id number] 09:57:00* Test Item Value Reference Range Interpretation Comments POC GLUCOSE (test code = POCGLU) 134 MG/DL 70-110 H POC ARTERIAL BLOOD [id number] 09:57:00* Test Item Value Reference Range Interpretation Comments POC ARTERIAL BLOOD GAS PH (test code = POCPHA) 7.494 7.35-7. 45 H POC ARTERIAL BLOOD GAS PCO2 (test code = AXNFFX4H) 29.8 mmHg 35. 0-45 LL POC TCO2 ARTERIAL (test code = POCTCO2) 23.8 POC ARTERIAL BLOOD GAS PO2 (test code = CAEEN0A) 547.2 mmHg 80-10 0.0 HH POC HCO3 ARTERIAL (test code = ARHXAS2P) 22.9 MMOL/L 22.0-26.0 N POC BASE EXCESS (test code = POCBEA) -0.2 MMOL/L -4.0-4.0 N POC O2 SATURATION (test code = POCO2S) 100.0 % 90-100 N [id number] 09:57:00* Test Item Value Reference Range Interpretation Comments SODIUM (test code = NA/ABG) 137 MEQ/L 134-147 N [id number] 09:57:00* Test Item Value Reference Range Interpretation Comments POTASSIUM (test code = K/ABG) 4.5 MEQ/L 3.4-5.0 N [id number] 09:57:00* Test Item Value Reference Range Interpretation Comments CHLORIDE (test code = CL/ABG) 100 MEQ/L 100-108 N CREATININE [id number] 09:57:00* Test Item Value Reference Range Interpretation Comments CREATININE ABG (test code = CREAABG) 0.5 mg/dL 0.6-1.0 L [id number] 09:57:00* Test Item Value Reference Range Interpretation Comments HEMOGLOBIN (test code = HGB/ABG) 6.9 G/DL 11.0-15.0 L [id number] 09:57:00* Test Item Value Reference Range Interpretation Comments HEMATOCRIT (test code = HCT/ABG) 20 % 33.0-45.0 L POC IONIZED [id number] 09:57:00* Test Item Value Reference Range Interpretation Comments POC IONIZED CALCIUM (test code = POCCA) 1.00 MMOL/L 1.12-1.32 L POC LACTIC [id number] 09:57:00* Test Item Value Reference Range Interpretation Comments POC LACTIC ACID (test code = POCLAC) 1.8 mmol/l 0.9-1.7 H POC [id number] 09:57:00* Test Item Value Reference Range Interpretation Comments POC GLUCOSE (test code = POCGLU) 134 MG/DL 70-110 H [id number] 09:12:00* Test Item Value Reference Range Interpretation Comments ACT-ISTAT (test code = ACTI) 494 SEC 74-137 H Performed by certified engine lathe set up operator tool at [facility] POC ARTERIAL BLOOD [id number] 08:59:00* Test Item Value Reference Range Interpretation Comments POC ARTERIAL BLOOD GAS PH (test code = POCPHA) 7.448 7.35-7. 45 N POC ARTERIAL BLOOD GAS PCO2 (test code = FSFOIM1C) 34.5 mmHg 35. 0-45 L POC TCO2 ARTERIAL (test code = POCTCO2) 25.0 POC ARTERIAL BLOOD GAS PO2 (test code = UNKBR2K) 585.5 mmHg 80-10 0.0 HH POC HCO3 ARTERIAL (test code = YZDQXS5D) 23.9 MMOL/L 22.0-26.0 N POC BASE EXCESS (test code = POCBEA) 0.1 MMOL/L -4.0-4.0 N POC O2 SATURATION (test code = POCO2S) 100.0 % 90-100 N [id number] 08:59:00* Test Item Value Reference Range Interpretation Comments SODIUM (test code = NA/ABG) MEQ/L 134-147 [id number] 08:59:00* Test Item Value Reference Range Interpretation Comments POTASSIUM (test code = K/ABG) MEQ/L 3.4-5.0 [id number] 08:59:00* Test Item Value Reference Range Interpretation Comments CHLORIDE (test code = CL/ABG) MEQ/L 100-108 CREATININE [id number] 08:59:00* Test Item Value Reference Range Interpretation Comments CREATININE ABG (test code = CREAABG) mg/dL 0.6-1.0 [id number] 08:59:00* Test Item Value Reference Range Interpretation Comments HEMOGLOBIN (test code = HGB/ABG) G/DL 11.0-15.0 [id number] 08:59:00* Test Item Value Reference Range Interpretation Comments HEMATOCRIT (test code = HCT/ABG) % 33.0-45.0 POC IONIZED [id number] 08:59:00* Test Item Value Reference Range Interpretation Comments POC IONIZED CALCIUM (test code = POCCA) MMOL/L 1.12-1.32 POC LACTIC [id number] 08:59:00* Test Item Value Reference Range Interpretation Comments POC LACTIC ACID (test code = POCLAC) mmol/l 0.9-1.7 POC [id number] 08:59:00* Test Item Value Reference Range Interpretation Comments POC GLUCOSE (test code = POCGLU) MG/DL 70-110 POC ARTERIAL BLOOD [id number] 08:59:00* Test Item Value Reference Range Interpretation Comments POC ARTERIAL BLOOD GAS PH (test code = POCPHA) 7.448 7.35-7. 45 N POC ARTERIAL BLOOD GAS PCO2 (test code = HNYTVU8O) 34.5 mmHg 35. 0-45 L POC TCO2 ARTERIAL (test code = POCTCO2) 25.0 POC ARTERIAL BLOOD GAS PO2 (test code = XVVJS9J) 585.5 mmHg 80-10 0.0 HH POC HCO3 ARTERIAL (test code = OJKRIP9G) 23.9 MMOL/L 22.0-26.0 N POC BASE EXCESS (test code = POCBEA) 0.1 MMOL/L -4.0-4.0 N POC O2 SATURATION (test code = POCO2S) 100.0 % 90-100 N [id number] 08:59:00* Test Item Value Reference Range Interpretation Comments SODIUM (test code = NA/ABG) 137 MEQ/L 134-147 N [id number] 08:59:00* Test Item Value Reference Range Interpretation Comments POTASSIUM (test code = K/ABG) MEQ/L 3.4-5.0 [id number] 08:59:00* Test Item Value Reference Range Interpretation Comments CHLORIDE (test code = CL/ABG) MEQ/L 100-108 CREATININE [id number] 08:59:00* Test Item Value Reference Range Interpretation Comments CREATININE ABG (test code = CREAABG) mg/dL 0.6-1.0 [id number] 08:59:00* Test Item Value Reference Range Interpretation Comments HEMOGLOBIN (test code = HGB/ABG) G/DL 11.0-15.0 [id number] 08:59:00* Test Item Value Reference Range Interpretation Comments HEMATOCRIT (test code = HCT/ABG) % 33.0-45.0 POC IONIZED [id number] 08:59:00* Test Item Value Reference Range Interpretation Comments POC IONIZED CALCIUM (test code = POCCA) MMOL/L 1.12-1.32 POC LACTIC [id number] 08:59:00* Test Item Value Reference Range Interpretation Comments POC LACTIC ACID (test code = POCLAC) mmol/l 0.9-1.7 POC [id number] 08:59:00* Test Item Value Reference Range Interpretation Comments POC GLUCOSE (test code = POCGLU) MG/DL 70-110 POC ARTERIAL BLOOD [id number] 08:59:00* Test Item Value Reference Range Interpretation Comments POC ARTERIAL BLOOD GAS PH (test code = POCPHA) 7.448 7.35-7. 45 N POC ARTERIAL BLOOD GAS PCO2 (test code = NQNHTZ7Q) 34.5 mmHg 35. 0-45 L POC TCO2 ARTERIAL (test code = POCTCO2) 25.0 POC ARTERIAL BLOOD GAS PO2 (test code = SNFIY9Z) 585.5 mmHg 80-10 0.0 HH POC HCO3 ARTERIAL (test code = GCZZEI9L) 23.9 MMOL/L 22.0-26.0 N POC BASE EXCESS (test code = POCBEA) 0.1 MMOL/L -4.0-4.0 N POC O2 SATURATION (test code = POCO2S) 100.0 % 90-100 N [id number] 08:59:00* Test Item Value Reference Range Interpretation Comments SODIUM (test code = NA/ABG) 137 MEQ/L 134-147 N [id number] 08:59:00* Test Item Value Reference Range Interpretation Comments POTASSIUM (test code = K/ABG) 3.7 MEQ/L 3.4-5.0 N [id number] 08:59:00* Test Item Value Reference Range Interpretation Comments CHLORIDE (test code = CL/ABG) MEQ/L 100-108 CREATININE [id number] 08:59:00* Test Item Value Reference Range Interpretation Comments CREATININE ABG (test code = CREAABG) mg/dL 0.6-1.0 [id number] 08:59:00* Test Item Value Reference Range Interpretation Comments HEMOGLOBIN (test code = HGB/ABG) G/DL 11.0-15.0 [id number] 08:59:00* Test Item Value Reference Range Interpretation Comments HEMATOCRIT (test code = HCT/ABG) % 33.0-45.0 POC IONIZED [id number] 08:59:00* Test Item Value Reference Range Interpretation Comments POC IONIZED CALCIUM (test code = POCCA) MMOL/L 1.12-1.32 POC LACTIC [id number] 08:59:00* Test Item Value Reference Range Interpretation Comments POC LACTIC ACID (test code = POCLAC) mmol/l 0.9-1.7 POC [id number] 08:59:00* Test Item Value Reference Range Interpretation Comments POC GLUCOSE (test code = POCGLU) MG/DL 70-110 POC ARTERIAL BLOOD [id number] 08:59:00* Test Item Value Reference Range Interpretation Comments POC ARTERIAL BLOOD GAS PH (test code = POCPHA) 7.448 7.35-7. 45 N POC ARTERIAL BLOOD GAS PCO2 (test code = CWKIIB5K) 34.5 mmHg 35. 0-45 L POC TCO2 ARTERIAL (test code = POCTCO2) 25.0 POC ARTERIAL BLOOD GAS PO2 (test code = OFRWE2D) 585.5 mmHg 80-10 0.0 HH POC HCO3 ARTERIAL (test code = CPCZQK6B) 23.9 MMOL/L 22.0-26.0 N POC BASE EXCESS (test code = POCBEA) 0.1 MMOL/L -4.0-4.0 N POC O2 SATURATION (test code = POCO2S) 100.0 % 90-100 N [id number] 08:59:00* Test Item Value Reference Range Interpretation Comments SODIUM (test code = NA/ABG) 137 MEQ/L 134-147 N [id number] 08:59:00* Test Item Value Reference Range Interpretation Comments POTASSIUM (test code = K/ABG) 3.7 MEQ/L 3.4-5.0 N [id number] 08:59:00* Test Item Value Reference Range Interpretation Comments CHLORIDE (test code = CL/ABG) MEQ/L 100-108 CREATININE [id number] 08:59:00* Test Item Value Reference Range Interpretation Comments CREATININE ABG (test code = CREAABG) mg/dL 0.6-1.0 [id number] 08:59:00* Test Item Value Reference Range Interpretation Comments HEMOGLOBIN (test code = HGB/ABG) G/DL 11.0-15.0 [id number] 08:59:00* Test Item Value Reference Range Interpretation Comments HEMATOCRIT (test code = HCT/ABG) % 33.0-45.0 POC IONIZED [id number] 08:59:00* Test Item Value Reference Range Interpretation Comments POC IONIZED CALCIUM (test code = POCCA) 1.16 MMOL/L 1.12-1.32 N POC LACTIC [id number] 08:59:00* Test Item Value Reference Range Interpretation Comments POC LACTIC ACID (test code = POCLAC) mmol/l 0.9-1.7 POC [id number] 08:59:00* Test Item Value Reference Range Interpretation Comments POC GLUCOSE (test code = POCGLU) MG/DL 70-110 POC ARTERIAL BLOOD [id number] 08:59:00* Test Item Value Reference Range Interpretation Comments POC ARTERIAL BLOOD GAS PH (test code = POCPHA) 7.448 7.35-7. 45 N POC ARTERIAL BLOOD GAS PCO2 (test code = SQHEVP6X) 34.5 mmHg 35. 0-45 L POC TCO2 ARTERIAL (test code = POCTCO2) 25.0 POC ARTERIAL BLOOD GAS PO2 (test code = JYSHD7C) 585.5 mmHg 80-10 0.0 HH POC HCO3 ARTERIAL (test code = AIFEBV5U) 23.9 MMOL/L 22.0-26.0 N POC BASE EXCESS (test code = POCBEA) 0.1 MMOL/L -4.0-4.0 N POC O2 SATURATION (test code = POCO2S) 100.0 % 90-100 N [id number] 08:59:00* Test Item Value Reference Range Interpretation Comments SODIUM (test code = NA/ABG) 137 MEQ/L 134-147 N [id number] 08:59:00* Test Item Value Reference Range Interpretation Comments POTASSIUM (test code = K/ABG) 3.7 MEQ/L 3.4-5.0 N [id number] 08:59:00* Test Item Value Reference Range Interpretation Comments CHLORIDE (test code = CL/ABG) MEQ/L 100-108 CREATININE [id number] 08:59:00* Test Item Value Reference Range Interpretation Comments CREATININE ABG (test code = CREAABG) mg/dL 0.6-1.0 [id number] 08:59:00* Test Item Value Reference Range Interpretation Comments HEMOGLOBIN (test code = HGB/ABG) G/DL 11.0-15.0 [id number] 08:59:00* Test Item Value Reference Range Interpretation Comments HEMATOCRIT (test code = HCT/ABG) % 33.0-45.0 POC IONIZED [id number] 08:59:00* Test Item Value Reference Range Interpretation Comments POC IONIZED CALCIUM (test code = POCCA) 1.16 MMOL/L 1.12-1.32 N POC LACTIC [id number] 08:59:00* Test Item Value Reference Range Interpretation Comments POC LACTIC ACID (test code = POCLAC) mmol/l 0.9-1.7 POC [id number] 08:59:00* Test Item Value Reference Range Interpretation Comments POC GLUCOSE (test code = POCGLU) 93 MG/DL 70-110 N POC ARTERIAL BLOOD [id number] 08:59:00* Test Item Value Reference Range Interpretation Comments POC ARTERIAL BLOOD GAS PH (test code = POCPHA) 7.448 7.35-7. 45 N POC ARTERIAL BLOOD GAS PCO2 (test code = CNACPW3S) 34.5 mmHg 35. 0-45 L POC TCO2 ARTERIAL (test code = POCTCO2) 25.0 POC ARTERIAL BLOOD GAS PO2 (test code = SHHLS8M) 585.5 mmHg 80-10 0.0 HH POC HCO3 ARTERIAL (test code = UELKJH9B) 23.9 MMOL/L 22.0-26.0 N POC BASE EXCESS (test code = POCBEA) 0.1 MMOL/L -4.0-4.0 N POC O2 SATURATION (test code = POCO2S) 100.0 % 90-100 N [id number] 08:59:00* Test Item Value Reference Range Interpretation Comments SODIUM (test code = NA/ABG) 137 MEQ/L 134-147 N [id number] 08:59:00* Test Item Value Reference Range Interpretation Comments POTASSIUM (test code = K/ABG) 3.7 MEQ/L 3.4-5.0 N [id number] 08:59:00* Test Item Value Reference Range Interpretation Comments CHLORIDE (test code = CL/ABG) MEQ/L 100-108 CREATININE [id number] 08:59:00* Test Item Value Reference Range Interpretation Comments CREATININE ABG (test code = CREAABG) mg/dL 0.6-1.0 [id number] 08:59:00* Test Item Value Reference Range Interpretation Comments HEMOGLOBIN (test code = HGB/ABG) G/DL 11.0-15.0 [id number] 08:59:00* Test Item Value Reference Range Interpretation Comments HEMATOCRIT (test code = HCT/ABG) % 33.0-45.0 POC IONIZED [id number] 08:59:00* Test Item Value Reference Range Interpretation Comments POC IONIZED CALCIUM (test code = POCCA) 1.16 MMOL/L 1.12-1.32 N POC LACTIC [id number] 08:59:00* Test Item Value Reference Range Interpretation Comments POC LACTIC ACID (test code = POCLAC) 1.1 mmol/l 0.9-1.7 N POC [id number] 08:59:00* Test Item Value Reference Range Interpretation Comments POC GLUCOSE (test code = POCGLU) 93 MG/DL 70-110 N POC ARTERIAL BLOOD [id number] 08:59:00* Test Item Value Reference Range Interpretation Comments POC ARTERIAL BLOOD GAS PH (test code = POCPHA) 7.448 7.35-7. 45 N POC ARTERIAL BLOOD GAS PCO2 (test code = LYKBDY2P) 34.5 mmHg 35. 0-45 L POC TCO2 ARTERIAL (test code = POCTCO2) 25.0 POC ARTERIAL BLOOD GAS PO2 (test code = RJAHQ3S) 585.5 mmHg 80-10 0.0 HH POC HCO3 ARTERIAL (test code = KUVQEV9P) 23.9 MMOL/L 22.0-26.0 N POC BASE EXCESS (test code = POCBEA) 0.1 MMOL/L -4.0-4.0 N POC O2 SATURATION (test code = POCO2S) 100.0 % 90-100 N [id number] 08:59:00* Test Item Value Reference Range Interpretation Comments SODIUM (test code = NA/ABG) 137 MEQ/L 134-147 N [id number] 08:59:00* Test Item Value Reference Range Interpretation Comments POTASSIUM (test code = K/ABG) 3.7 MEQ/L 3.4-5.0 N [id number] 08:59:00* Test Item Value Reference Range Interpretation Comments CHLORIDE (test code = CL/ABG) MEQ/L 100-108 CREATININE [id number] 08:59:00* Test Item Value Reference Range Interpretation Comments CREATININE ABG (test code = CREAABG) mg/dL 0.6-1.0 [id number] 08:59:00* Test Item Value Reference Range Interpretation Comments HEMOGLOBIN (test code = HGB/ABG) G/DL 11.0-15.0 [id number] 08:59:00* Test Item Value Reference Range Interpretation Comments HEMATOCRIT (test code = HCT/ABG) 28 % 33.0-45.0 L POC IONIZED [id number] 08:59:00* Test Item Value Reference Range Interpretation Comments POC IONIZED CALCIUM (test code = POCCA) 1.16 MMOL/L 1.12-1.32 N POC LACTIC [id number] 08:59:00* Test Item Value Reference Range Interpretation Comments POC LACTIC ACID (test code = POCLAC) 1.1 mmol/l 0.9-1.7 N POC [id number] 08:59:00* Test Item Value Reference Range Interpretation Comments POC GLUCOSE (test code = POCGLU) 93 MG/DL 70-110 N POC ARTERIAL BLOOD [id number] 08:59:00* Test Item Value Reference Range Interpretation Comments POC ARTERIAL BLOOD GAS PH (test code = POCPHA) 7.448 7.35-7. 45 N POC ARTERIAL BLOOD GAS PCO2 (test code = XIMAQQ6I) 34.5 mmHg 35. 0-45 L POC TCO2 ARTERIAL (test code = POCTCO2) 25.0 POC ARTERIAL BLOOD GAS PO2 (test code = JGTPJ5M) 585.5 mmHg 80-10 0.0 HH POC HCO3 ARTERIAL (test code = TYHQHV3C) 23.9 MMOL/L 22.0-26.0 N POC BASE EXCESS (test code = POCBEA) 0.1 MMOL/L -4.0-4.0 N POC O2 SATURATION (test code = POCO2S) 100.0 % 90-100 N [id number] 08:59:00* Test Item Value Reference Range Interpretation Comments SODIUM (test code = NA/ABG) 137 MEQ/L 134-147 N [id number] 08:59:00* Test Item Value Reference Range Interpretation Comments POTASSIUM (test code = K/ABG) 3.7 MEQ/L 3.4-5.0 N [id number] 08:59:00* Test Item Value Reference Range Interpretation Comments CHLORIDE (test code = CL/ABG) MEQ/L 100-108 CREATININE [id number] 08:59:00* Test Item Value Reference Range Interpretation Comments CREATININE ABG (test code = CREAABG) mg/dL 0.6-1.0 [id number] 08:59:00* Test Item Value Reference Range Interpretation Comments HEMOGLOBIN (test code = HGB/ABG) 9.5 G/DL 11.0-15.0 L [id number] 08:59:00* Test Item Value Reference Range Interpretation Comments HEMATOCRIT (test code = HCT/ABG) 28 % 33.0-45.0 L POC IONIZED [id number] 08:59:00* Test Item Value Reference Range Interpretation Comments POC IONIZED CALCIUM (test code = POCCA) 1.16 MMOL/L 1.12-1.32 N POC LACTIC [id number] 08:59:00* Test Item Value Reference Range Interpretation Comments POC LACTIC ACID (test code = POCLAC) 1.1 mmol/l 0.9-1.7 N POC [id number] 08:59:00* Test Item Value Reference Range Interpretation Comments POC GLUCOSE (test code = POCGLU) 93 MG/DL 70-110 N POC ARTERIAL BLOOD [id number] 08:59:00* Test Item Value Reference Range Interpretation Comments POC ARTERIAL BLOOD GAS PH (test code = POCPHA) 7.448 7.35-7. 45 N POC ARTERIAL BLOOD GAS PCO2 (test code = LBPLUJ8Z) 34.5 mmHg 35. 0-45 L POC TCO2 ARTERIAL (test code = POCTCO2) 25.0 POC ARTERIAL BLOOD GAS PO2 (test code = RJSST9T) 585.5 mmHg 80-10 0.0 HH POC HCO3 ARTERIAL (test code = OQVGRN2V) 23.9 MMOL/L 22.0-26.0 N POC BASE EXCESS (test code = POCBEA) 0.1 MMOL/L -4.0-4.0 N POC O2 SATURATION (test code = POCO2S) 100.0 % 90-100 N [id number] 08:59:00* Test Item Value Reference Range Interpretation Comments SODIUM (test code = NA/ABG) 137 MEQ/L 134-147 N [id number] 08:59:00* Test Item Value Reference Range Interpretation Comments POTASSIUM (test code = K/ABG) 3.7 MEQ/L 3.4-5.0 N [id number] 08:59:00* Test Item Value Reference Range Interpretation Comments CHLORIDE (test code = CL/ABG) 101 MEQ/L 100-108 N CREATININE [id number] 08:59:00* Test Item Value Reference Range Interpretation Comments CREATININE ABG (test code = CREAABG) mg/dL 0.6-1.0 [id number] 08:59:00* Test Item Value Reference Range Interpretation Comments HEMOGLOBIN (test code = HGB/ABG) 9.5 G/DL 11.0-15.0 L [id number] 08:59:00* Test Item Value Reference Range Interpretation Comments HEMATOCRIT (test code = HCT/ABG) 28 % 33.0-45.0 L POC IONIZED [id number] 08:59:00* Test Item Value Reference Range Interpretation Comments POC IONIZED CALCIUM (test code = POCCA) 1.16 MMOL/L 1.12-1.32 N POC LACTIC [id number] 08:59:00* Test Item Value Reference Range Interpretation Comments POC LACTIC ACID (test code = POCLAC) 1.1 mmol/l 0.9-1.7 N POC [id number] 08:59:00* Test Item Value Reference Range Interpretation Comments POC GLUCOSE (test code = POCGLU) 93 MG/DL 70-110 N POC ARTERIAL BLOOD [id number] 08:59:00* Test Item Value Reference Range Interpretation Comments POC ARTERIAL BLOOD GAS PH (test code = POCPHA) 7.448 7.35-7. 45 N POC ARTERIAL BLOOD GAS PCO2 (test code = MSVEOG4N) 34.5 mmHg 35. 0-45 L POC TCO2 ARTERIAL (test code = POCTCO2) 25.0 POC ARTERIAL BLOOD GAS PO2 (test code = SMCLQ8W) 585.5 mmHg 80-10 0.0 HH POC HCO3 ARTERIAL (test code = EJUWAS3Z) 23.9 MMOL/L 22.0-26.0 N POC BASE EXCESS (test code = POCBEA) 0.1 MMOL/L -4.0-4.0 N POC O2 SATURATION (test code = POCO2S) 100.0 % 90-100 N [id number] 08:59:00* Test Item Value Reference Range Interpretation Comments SODIUM (test code = NA/ABG) 137 MEQ/L 134-147 N [id number] 08:59:00* Test Item Value Reference Range Interpretation Comments POTASSIUM (test code = K/ABG) 3.7 MEQ/L 3.4-5.0 N [id number] 08:59:00* Test Item Value Reference Range Interpretation Comments CHLORIDE (test code = CL/ABG) 101 MEQ/L 100-108 N CREATININE [id number] 08:59:00* Test Item Value Reference Range Interpretation Comments CREATININE ABG (test code = CREAABG) 0.4 mg/dL 0.6-1.0 L [id number] 08:59:00* Test Item Value Reference Range Interpretation Comments HEMOGLOBIN (test code = HGB/ABG) 9.5 G/DL 11.0-15.0 L [id number] 08:59:00* Test Item Value Reference Range Interpretation Comments HEMATOCRIT (test code = HCT/ABG) 28 % 33.0-45.0 L POC IONIZED [id number] 08:59:00* Test Item Value Reference Range Interpretation Comments POC IONIZED CALCIUM (test code = POCCA) 1.16 MMOL/L 1.12-1.32 N POC LACTIC [id number] 08:59:00* Test Item Value Reference Range Interpretation Comments POC LACTIC ACID (test code = POCLAC) 1.1 mmol/l 0.9-1.7 N POC [id number] 08:59:00* Test Item Value Reference Range Interpretation Comments POC GLUCOSE (test code = POCGLU) 93 MG/DL 70-110 N [id number] 07:22:00* Test Item Value Reference Range Interpretation Comments ACT-ISTAT (test code = ACTI) 136 SEC 74-137 N Performed by certified engine lathe set up operator tool at [facility] POC ARTERIAL BLOOD [id number] 07:13:00* Test Item Value Reference Range Interpretation Comments POC ARTERIAL BLOOD GAS PH (test code = POCPHA) 7.502 7.35-7. 45 HH POC ARTERIAL BLOOD GAS PCO2 (test code = WYNGCN5H) 33.9 mmHg 35. 0-45 L POC TCO2 ARTERIAL (test code = POCTCO2) 27.5 POC ARTERIAL BLOOD GAS PO2 (test code = XJEPS0S) 64.4 mmHg 80-10 0.0 L POC HCO3 ARTERIAL (test code = TDVRZA4H) 26.5 MMOL/L 22.0-26.0 H POC BASE EXCESS (test code = POCBEA) 3.4 MMOL/L -4.0-4.0 N POC O2 SATURATION (test code = POCO2S) 94.2 % 90-100 N [id number] 07:13:00* Test Item Value Reference Range Interpretation Comments SODIUM (test code = NA/ABG) MEQ/L 134-147 [id number] 07:13:00* Test Item Value Reference Range Interpretation Comments POTASSIUM (test code = K/ABG) MEQ/L 3.4-5.0 [id number] 07:13:00* Test Item Value Reference Range Interpretation Comments CHLORIDE (test code = CL/ABG) MEQ/L 100-108 CREATININE [id number] 07:13:00* Test Item Value Reference Range Interpretation Comments CREATININE ABG (test code = CREAABG) mg/dL 0.6-1.0 [id number] 07:13:00* Test Item Value Reference Range Interpretation Comments HEMOGLOBIN (test code = HGB/ABG) G/DL 11.0-15.0 [id number] 07:13:00* Test Item Value Reference Range Interpretation Comments HEMATOCRIT (test code = HCT/ABG) % 33.0-45.0 POC IONIZED [id number] 07:13:00* Test Item Value Reference Range Interpretation Comments POC IONIZED CALCIUM (test code = POCCA) MMOL/L 1.12-1.32 POC LACTIC [id number] 07:13:00* Test Item Value Reference Range Interpretation Comments POC LACTIC ACID (test code = POCLAC) mmol/l 0.9-1.7 POC [id number] 07:13:00* Test Item Value Reference Range Interpretation Comments POC GLUCOSE (test code = POCGLU) MG/DL 70-110 POC ARTERIAL BLOOD [id number] 07:13:00* Test Item Value Reference Range Interpretation Comments POC ARTERIAL BLOOD GAS PH (test code = POCPHA) 7.502 7.35-7. 45 HH POC ARTERIAL BLOOD GAS PCO2 (test code = PMTUTR7Y) 33.9 mmHg 35. 0-45 L POC TCO2 ARTERIAL (test code = POCTCO2) 27.5 POC ARTERIAL BLOOD GAS PO2 (test code = ODOAS7W) 64.4 mmHg 80-10 0.0 L POC HCO3 ARTERIAL (test code = SHYAIV8M) 26.5 MMOL/L 22.0-26.0 H POC BASE EXCESS (test code = POCBEA) 3.4 MMOL/L -4.0-4.0 N POC O2 SATURATION (test code = POCO2S) 94.2 % 90-100 N [id number] 07:13:00* Test Item Value Reference Range Interpretation Comments SODIUM (test code = NA/ABG) 138 MEQ/L 134-147 N [id number] 07:13:00* Test Item Value Reference Range Interpretation Comments POTASSIUM (test code = K/ABG) MEQ/L 3.4-5.0 [id number] 07:13:00* Test Item Value Reference Range Interpretation Comments CHLORIDE (test code = CL/ABG) MEQ/L 100-108 CREATININE [id number] 07:13:00* Test Item Value Reference Range Interpretation Comments CREATININE ABG (test code = CREAABG) mg/dL 0.6-1.0 [id number] 07:13:00* Test Item Value Reference Range Interpretation Comments HEMOGLOBIN (test code = HGB/ABG) G/DL 11.0-15.0 [id number] 07:13:00* Test Item Value Reference Range Interpretation Comments HEMATOCRIT (test code = HCT/ABG) % 33.0-45.0 POC IONIZED [id number] 07:13:00* Test Item Value Reference Range Interpretation Comments POC IONIZED CALCIUM (test code = POCCA) MMOL/L 1.12-1.32 POC LACTIC [id number] 07:13:00* Test Item Value Reference Range Interpretation Comments POC LACTIC ACID (test code = POCLAC) mmol/l 0.9-1.7 POC [id number] 07:13:00* Test Item Value Reference Range Interpretation Comments POC GLUCOSE (test code = POCGLU) MG/DL 70-110 POC ARTERIAL BLOOD [id number] 07:13:00* Test Item Value Reference Range Interpretation Comments POC ARTERIAL BLOOD GAS PH (test code = POCPHA) 7.502 7.35-7. 45 HH POC ARTERIAL BLOOD GAS PCO2 (test code = RWOREL2W) 33.9 mmHg 35. 0-45 L POC TCO2 ARTERIAL (test code = POCTCO2) 27.5 POC ARTERIAL BLOOD GAS PO2 (test code = KFKJL7D) 64.4 mmHg 80-10 0.0 L POC HCO3 ARTERIAL (test code = LOKMZY8Z) 26.5 MMOL/L 22.0-26.0 H POC BASE EXCESS (test code = POCBEA) 3.4 MMOL/L -4.0-4.0 N POC O2 SATURATION (test code = POCO2S) 94.2 % 90-100 N [id number] 07:13:00* Test Item Value Reference Range Interpretation Comments SODIUM (test code = NA/ABG) 138 MEQ/L 134-147 N [id number] 07:13:00* Test Item Value Reference Range Interpretation Comments POTASSIUM (test code = K/ABG) 3.8 MEQ/L 3.4-5.0 N [id number] 07:13:00* Test Item Value Reference Range Interpretation Comments CHLORIDE (test code = CL/ABG) MEQ/L 100-108 CREATININE [id number] 07:13:00* Test Item Value Reference Range Interpretation Comments CREATININE ABG (test code = CREAABG) mg/dL 0.6-1.0 [id number] 07:13:00* Test Item Value Reference Range Interpretation Comments HEMOGLOBIN (test code = HGB/ABG) G/DL 11.0-15.0 [id number] 07:13:00* Test Item Value Reference Range Interpretation Comments HEMATOCRIT (test code = HCT/ABG) % 33.0-45.0 POC IONIZED [id number] 07:13:00* Test Item Value Reference Range Interpretation Comments POC IONIZED CALCIUM (test code = POCCA) MMOL/L 1.12-1.32 POC LACTIC [id number] 07:13:00* Test Item Value Reference Range Interpretation Comments POC LACTIC ACID (test code = POCLAC) mmol/l 0.9-1.7 POC [id number] 07:13:00* Test Item Value Reference Range Interpretation Comments POC GLUCOSE (test code = POCGLU) MG/DL 70-110 POC ARTERIAL BLOOD [id number] 07:13:00* Test Item Value Reference Range Interpretation Comments POC ARTERIAL BLOOD GAS PH (test code = POCPHA) 7.502 7.35-7. 45 HH POC ARTERIAL BLOOD GAS PCO2 (test code = RLSSAX8S) 33.9 mmHg 35. 0-45 L POC TCO2 ARTERIAL (test code = POCTCO2) 27.5 POC ARTERIAL BLOOD GAS PO2 (test code = HGHAW8I) 64.4 mmHg 80-10 0.0 L POC HCO3 ARTERIAL (test code = WINGGA2K) 26.5 MMOL/L 22.0-26.0 H POC BASE EXCESS (test code = POCBEA) 3.4 MMOL/L -4.0-4.0 N POC O2 SATURATION (test code = POCO2S) 94.2 % 90-100 N [id number] 07:13:00* Test Item Value Reference Range Interpretation Comments SODIUM (test code = NA/ABG) 138 MEQ/L 134-147 N [id number] 07:13:00* Test Item Value Reference Range Interpretation Comments POTASSIUM (test code = K/ABG) 3.8 MEQ/L 3.4-5.0 N [id number] 07:13:00* Test Item Value Reference Range Interpretation Comments CHLORIDE (test code = CL/ABG) MEQ/L 100-108 CREATININE [id number] 07:13:00* Test Item Value Reference Range Interpretation Comments CREATININE ABG (test code = CREAABG) mg/dL 0.6-1.0 [id number] 07:13:00* Test Item Value Reference Range Interpretation Comments HEMOGLOBIN (test code = HGB/ABG) G/DL 11.0-15.0 [id number] 07:13:00* Test Item Value Reference Range Interpretation Comments HEMATOCRIT (test code = HCT/ABG) % 33.0-45.0 POC IONIZED [id number] 07:13:00* Test Item Value Reference Range Interpretation Comments POC IONIZED CALCIUM (test code = POCCA) 1.18 MMOL/L 1.12-1.32 N POC LACTIC [id number] 07:13:00* Test Item Value Reference Range Interpretation Comments POC LACTIC ACID (test code = POCLAC) mmol/l 0.9-1.7 POC [id number] 07:13:00* Test Item Value Reference Range Interpretation Comments POC GLUCOSE (test code = POCGLU) MG/DL 70-110 POC ARTERIAL BLOOD [id number] 07:13:00* Test Item Value Reference Range Interpretation Comments POC ARTERIAL BLOOD GAS PH (test code = POCPHA) 7.502 7.35-7. 45 HH POC ARTERIAL BLOOD GAS PCO2 (test code = NFUQII6A) 33.9 mmHg 35. 0-45 L POC TCO2 ARTERIAL (test code = POCTCO2) 27.5 POC ARTERIAL BLOOD GAS PO2 (test code = HBTWV1Q) 64.4 mmHg 80-10 0.0 L POC HCO3 ARTERIAL (test code = NVBLAS0D) 26.5 MMOL/L 22.0-26.0 H POC BASE EXCESS (test code = POCBEA) 3.4 MMOL/L -4.0-4.0 N POC O2 SATURATION (test code = POCO2S) 94.2 % 90-100 N [id number] 07:13:00* Test Item Value Reference Range Interpretation Comments SODIUM (test code = NA/ABG) 138 MEQ/L 134-147 N [id number] 07:13:00* Test Item Value Reference Range Interpretation Comments POTASSIUM (test code = K/ABG) 3.8 MEQ/L 3.4-5.0 N [id number] 07:13:00* Test Item Value Reference Range Interpretation Comments CHLORIDE (test code = CL/ABG) MEQ/L 100-108 CREATININE [id number] 07:13:00* Test Item Value Reference Range Interpretation Comments CREATININE ABG (test code = CREAABG) mg/dL 0.6-1.0 [id number] 07:13:00* Test Item Value Reference Range Interpretation Comments HEMOGLOBIN (test code = HGB/ABG) G/DL 11.0-15.0 [id number] 07:13:00* Test Item Value Reference Range Interpretation Comments HEMATOCRIT (test code = HCT/ABG) % 33.0-45.0 POC IONIZED [id number] 07:13:00* Test Item Value Reference Range Interpretation Comments POC IONIZED CALCIUM (test code = POCCA) 1.18 MMOL/L 1.12-1.32 N POC LACTIC [id number] 07:13:00* Test Item Value Reference Range Interpretation Comments POC LACTIC ACID (test code = POCLAC) mmol/l 0.9-1.7 POC [id number] 07:13:00* Test Item Value Reference Range Interpretation Comments POC GLUCOSE (test code = POCGLU) 114 MG/DL 70-110 H POC ARTERIAL BLOOD [id number] 07:13:00* Test Item Value Reference Range Interpretation Comments POC ARTERIAL BLOOD GAS PH (test code = POCPHA) 7.502 7.35-7. 45 HH POC ARTERIAL BLOOD GAS PCO2 (test code = UHPKJD2W) 33.9 mmHg 35. 0-45 L POC TCO2 ARTERIAL (test code = POCTCO2) 27.5 POC ARTERIAL BLOOD GAS PO2 (test code = MYQLX0A) 64.4 mmHg 80-10 0.0 L POC HCO3 ARTERIAL (test code = MVSAHW4M) 26.5 MMOL/L 22.0-26.0 H POC BASE EXCESS (test code = POCBEA) 3.4 MMOL/L -4.0-4.0 N POC O2 SATURATION (test code = POCO2S) 94.2 % 90-100 N [id number] 07:13:00* Test Item Value Reference Range Interpretation Comments SODIUM (test code = NA/ABG) 138 MEQ/L 134-147 N [id number] 07:13:00* Test Item Value Reference Range Interpretation Comments POTASSIUM (test code = K/ABG) 3.8 MEQ/L 3.4-5.0 N [id number] 07:13:00* Test Item Value Reference Range Interpretation Comments CHLORIDE (test code = CL/ABG) MEQ/L 100-108 CREATININE [id number] 07:13:00* Test Item Value Reference Range Interpretation Comments CREATININE ABG (test code = CREAABG) mg/dL 0.6-1.0 [id number] 07:13:00* Test Item Value Reference Range Interpretation Comments HEMOGLOBIN (test code = HGB/ABG) G/DL 11.0-15.0 [id number] 07:13:00* Test Item Value Reference Range Interpretation Comments HEMATOCRIT (test code = HCT/ABG) % 33.0-45.0 POC IONIZED [id number] 07:13:00* Test Item Value Reference Range Interpretation Comments POC IONIZED CALCIUM (test code = POCCA) 1.18 MMOL/L 1.12-1.32 N POC LACTIC [id number] 07:13:00* Test Item Value Reference Range Interpretation Comments POC LACTIC ACID (test code = POCLAC) 0.9 mmol/l 0.9-1.7 N POC [id number] 07:13:00* Test Item Value Reference Range Interpretation Comments POC GLUCOSE (test code = POCGLU) 114 MG/DL 70-110 H POC ARTERIAL BLOOD [id number] 07:13:00* Test Item Value Reference Range Interpretation Comments POC ARTERIAL BLOOD GAS PH (test code = POCPHA) 7.502 7.35-7. 45 HH POC ARTERIAL BLOOD GAS PCO2 (test code = LLNKUL1T) 33.9 mmHg 35. 0-45 L POC TCO2 ARTERIAL (test code = POCTCO2) 27.5 POC ARTERIAL BLOOD GAS PO2 (test code = QPPAP3H) 64.4 mmHg 80-10 0.0 L POC HCO3 ARTERIAL (test code = UMMDNQ1L) 26.5 MMOL/L 22.0-26.0 H POC BASE EXCESS (test code = POCBEA) 3.4 MMOL/L -4.0-4.0 N POC O2 SATURATION (test code = POCO2S) 94.2 % 90-100 N [id number] 07:13:00* Test Item Value Reference Range Interpretation Comments SODIUM (test code = NA/ABG) 138 MEQ/L 134-147 N [id number] 07:13:00* Test Item Value Reference Range Interpretation Comments POTASSIUM (test code = K/ABG) 3.8 MEQ/L 3.4-5.0 N [id number] 07:13:00* Test Item Value Reference Range Interpretation Comments CHLORIDE (test code = CL/ABG) MEQ/L 100-108 CREATININE [id number] 07:13:00* Test Item Value Reference Range Interpretation Comments CREATININE ABG (test code = CREAABG) mg/dL 0.6-1.0 [id number] 07:13:00* Test Item Value Reference Range Interpretation Comments HEMOGLOBIN (test code = HGB/ABG) G/DL 11.0-15.0 [id number] 07:13:00* Test Item Value Reference Range Interpretation Comments HEMATOCRIT (test code = HCT/ABG) 29 % 33.0-45.0 L POC IONIZED [id number] 07:13:00* Test Item Value Reference Range Interpretation Comments POC IONIZED CALCIUM (test code = POCCA) 1.18 MMOL/L 1.12-1.32 N POC LACTIC [id number] 07:13:00* Test Item Value Reference Range Interpretation Comments POC LACTIC ACID (test code = POCLAC) 0.9 mmol/l 0.9-1.7 N POC [id number] 07:13:00* Test Item Value Reference Range Interpretation Comments POC GLUCOSE (test code = POCGLU) 114 MG/DL 70-110 H POC ARTERIAL BLOOD [id number] 07:13:00* Test Item Value Reference Range Interpretation Comments POC ARTERIAL BLOOD GAS PH (test code = POCPHA) 7.502 7.35-7. 45 HH POC ARTERIAL BLOOD GAS PCO2 (test code = BDSTRX7T) 33.9 mmHg 35. 0-45 L POC TCO2 ARTERIAL (test code = POCTCO2) 27.5 POC ARTERIAL BLOOD GAS PO2 (test code = EGDMI2E) 64.4 mmHg 80-10 0.0 L POC HCO3 ARTERIAL (test code = CKBTGV2C) 26.5 MMOL/L 22.0-26.0 H POC BASE EXCESS (test code = POCBEA) 3.4 MMOL/L -4.0-4.0 N POC O2 SATURATION (test code = POCO2S) 94.2 % 90-100 N [id number] 07:13:00* Test Item Value Reference Range Interpretation Comments SODIUM (test code = NA/ABG) 138 MEQ/L 134-147 N [id number] 07:13:00* Test Item Value Reference Range Interpretation Comments POTASSIUM (test code = K/ABG) 3.8 MEQ/L 3.4-5.0 N [id number] 07:13:00* Test Item Value Reference Range Interpretation Comments CHLORIDE (test code = CL/ABG) MEQ/L 100-108 CREATININE [id number] 07:13:00* Test Item Value Reference Range Interpretation Comments CREATININE ABG (test code = CREAABG) mg/dL 0.6-1.0 [id number] 07:13:00* Test Item Value Reference Range Interpretation Comments HEMOGLOBIN (test code = HGB/ABG) 9.9 G/DL 11.0-15.0 L [id number] 07:13:00* Test Item Value Reference Range Interpretation Comments HEMATOCRIT (test code = HCT/ABG) 29 % 33.0-45.0 L POC IONIZED [id number] 07:13:00* Test Item Value Reference Range Interpretation Comments POC IONIZED CALCIUM (test code = POCCA) 1.18 MMOL/L 1.12-1.32 N POC LACTIC [id number] 07:13:00* Test Item Value Reference Range Interpretation Comments POC LACTIC ACID (test code = POCLAC) 0.9 mmol/l 0.9-1.7 N POC [id number] 07:13:00* Test Item Value Reference Range Interpretation Comments POC GLUCOSE (test code = POCGLU) 114 MG/DL 70-110 H POC ARTERIAL BLOOD [id number] 07:13:00* Test Item Value Reference Range Interpretation Comments POC ARTERIAL BLOOD GAS PH (test code = POCPHA) 7.502 7.35-7. 45 HH POC ARTERIAL BLOOD GAS PCO2 (test code = YSPCMO6N) 33.9 mmHg 35. 0-45 L POC TCO2 ARTERIAL (test code = POCTCO2) 27.5 POC ARTERIAL BLOOD GAS PO2 (test code = AIBPP9U) 64.4 mmHg 80-10 0.0 L POC HCO3 ARTERIAL (test code = FONTYK0W) 26.5 MMOL/L 22.0-26.0 H POC BASE EXCESS (test code = POCBEA) 3.4 MMOL/L -4.0-4.0 N POC O2 SATURATION (test code = POCO2S) 94.2 % 90-100 N [id number] 07:13:00* Test Item Value Reference Range Interpretation Comments SODIUM (test code = NA/ABG) 138 MEQ/L 134-147 N [id number] 07:13:00* Test Item Value Reference Range Interpretation Comments POTASSIUM (test code = K/ABG) 3.8 MEQ/L 3.4-5.0 N [id number] 07:13:00* Test Item Value Reference Range Interpretation Comments CHLORIDE (test code = CL/ABG) 100 MEQ/L 100-108 N CREATININE [id number] 07:13:00* Test Item Value Reference Range Interpretation Comments CREATININE ABG (test code = CREAABG) mg/dL 0.6-1.0 [id number] 07:13:00* Test Item Value Reference Range Interpretation Comments HEMOGLOBIN (test code = HGB/ABG) 9.9 G/DL 11.0-15.0 L [id number] 07:13:00* Test Item Value Reference Range Interpretation Comments HEMATOCRIT (test code = HCT/ABG) 29 % 33.0-45.0 L POC IONIZED [id number] 07:13:00* Test Item Value Reference Range Interpretation Comments POC IONIZED CALCIUM (test code = POCCA) 1.18 MMOL/L 1.12-1.32 N POC LACTIC [id number] 07:13:00* Test Item Value Reference Range Interpretation Comments POC LACTIC ACID (test code = POCLAC) 0.9 mmol/l 0.9-1.7 N POC [id number] 07:13:00* Test Item Value Reference Range Interpretation Comments POC GLUCOSE (test code = POCGLU) 114 MG/DL 70-110 H POC ARTERIAL BLOOD [id number] 07:13:00* Test Item Value Reference Range Interpretation Comments POC ARTERIAL BLOOD GAS PH (test code = POCPHA) 7.502 7.35-7. 45 HH POC ARTERIAL BLOOD GAS PCO2 (test code = ONNEFR4Y) 33.9 mmHg 35. 0-45 L POC TCO2 ARTERIAL (test code = POCTCO2) 27.5 POC ARTERIAL BLOOD GAS PO2 (test code = KXUJZ4E) 64.4 mmHg 80-10 0.0 L POC HCO3 ARTERIAL (test code = VZTUPX0I) 26.5 MMOL/L 22.0-26.0 H POC BASE EXCESS (test code = POCBEA) 3.4 MMOL/L -4.0-4.0 N POC O2 SATURATION (test code = POCO2S) 94.2 % 90-100 N [id number] 07:13:00* Test Item Value Reference Range Interpretation Comments SODIUM (test code = NA/ABG) 138 MEQ/L 134-147 N [id number] 07:13:00* Test Item Value Reference Range Interpretation Comments POTASSIUM (test code = K/ABG) 3.8 MEQ/L 3.4-5.0 N [id number] 07:13:00* Test Item Value Reference Range Interpretation Comments CHLORIDE (test code = CL/ABG) 100 MEQ/L 100-108 N CREATININE [id number] 07:13:00* Test Item Value Reference Range Interpretation Comments CREATININE ABG (test code = CREAABG) 0.9 mg/dL 0.6-1.0 N [id number] 07:13:00* Test Item Value Reference Range Interpretation Comments HEMOGLOBIN (test code = HGB/ABG) 9.9 G/DL 11.0-15.0 L [id number] 07:13:00* Test Item Value Reference Range Interpretation Comments HEMATOCRIT (test code = HCT/ABG) 29 % 33.0-45.0 L POC IONIZED [id number] 07:13:00* Test Item Value Reference Range Interpretation Comments POC IONIZED CALCIUM (test code = POCCA) 1.18 MMOL/L 1.12-1.32 N POC LACTIC [id number] 07:13:00* Test Item Value Reference Range Interpretation Comments POC LACTIC ACID (test code = POCLAC) 0.9 mmol/l 0.9-1.7 N POC [id number] 07:13:00* Test Item Value Reference Range Interpretation Comments POC GLUCOSE (test code = POCGLU) 114 MG/DL 70-110 H B-TYPE NATRIURETIC [id number] 04:23:00* Test Item Value Reference Range Interpretation Comments B-TYPE NATRIURETIC PEPTIDE (test code = BNP) 437.9 PG/ML 0-100 H COMPREHENSIVE METABOLIC [id number] 04:17:00* Test Item Value Reference Range Interpretation [...] = LDL) 33 mg/dL 0-100 N <100 [id number] NEAR OPTIMAL/ABOVE [id number] MUENUCREQG202-842 HIGH>IA=579 VERY HIGH*Guidelines provided by the National Cholesterol EducationProgram Adult Treatment Panel III COMPREHENSIVE METABOLIC [id number] 04:13:00* Test Item Value Reference Range Interpretation [...] (test code = LDL) mg/dL 0-100 PROTHROMBIN [id number] 04:09:00* Test Item Value Reference Range Interpretation [...] Infarction (to prevent recurrent infarct). THROMBOPLASTIN TIME [id number] 04:09:00* Test Item Value Reference Range Interpretation Comments THROMBOPLASTIN TIME PARTIAL (test code = PTT) 75.4 Seconds 25.0-39. 5 H Therapeutic Range: 50.4 - 88.3 Seconds Effective 06/07/2018 CBC W/AUTO [id number] 03:57:00* Test Item Value Reference Range Interpretation [...] (test code = MDIFF) NO THROMBOPLASTIN TIME [id number] 21:19:00* Test Item Value Reference Range Interpretation Comments THROMBOPLASTIN TIME PARTIAL (test code = PTT) 70.4 Seconds 25.0-39. 5 H Therapeutic Range: 50.4 - 88.3 Seconds Effective 06/07/2018 THROMBOPLASTIN TIME [id number] 14:17:00* Test Item Value Reference Range Interpretation Comments THROMBOPLASTIN TIME PARTIAL (test code = PTT) 69.9 Seconds 25.0-39. 5 H Therapeutic Range: 50.4 - 88.3 Seconds Effective 06/07/2018 URINALYSIS [id number] 13:39:00* Test Item Value Reference Range Interpretation [...] MUCU) TRACE /LPF NONE SEEN THROMBOPLASTIN TIME [id number] 07:01:00* Test Item Value Reference Range Interpretation Comments THROMBOPLASTIN TIME PARTIAL (test code = PTT) 53.2 Seconds 25.0-39. 5 H Therapeutic Range: 50.4 - 88.3 Seconds Effective 06/07/2018 BASIC METABOLIC [id number] 06:10:00* Test Item Value Reference Range Interpretation [...] code = CA) 9.1 mg/dL 8.0-10.5 N [id number] 06:10:00* Test Item Value Reference Range Interpretation Comments PHOSPHOROUS (test code = PHOS) 3.4 MG/DL 2.5-4.9 N [id number] 06:10:00* Test Item Value Reference Range Interpretation Comments MAGNESIUM (test code = MAG) 2.00 mg/dL 1.8-2.4 N CBC W/AUTO [id number] 05:46:00* Test Item Value Reference Range Interpretation [...] = MDIFF) NO COMMENTS: Daily while on [id number] 21:08:00* Test Item Value Reference Range Interpretation Comments GLUBED (test code = GLUBED) 211 MG/DL 70-110 H Performed by certified engine lathe set up operator tool at [facility] [id number] 17:14:00* Test Item Value Reference Range Interpretation Comments GLUBED (test code = GLUBED) 146 MG/DL 70-110 H Performed by certified engine lathe set up operator tool at [facility] [id number] 11:33:00* Test Item Value Reference Range Interpretation Comments GLUBED (test code = GLUBED) 336 MG/DL 70-110 H Performed by certified engine lathe set up operator tool at [facility] [id number] 07:23:00* Test Item Value Reference Range Interpretation Comments GLUBED (test code = GLUBED) 242 MG/DL 70-110 H Performed by certified engine lathe set up operator tool at [facility] THROMBOPLASTIN TIME [id number] 04:56:00* Test Item Value Reference Range Interpretation Comments THROMBOPLASTIN TIME PARTIAL (test code = PTT) 54.9 Seconds 25.0-39. 5 H Therapeutic Range: 50.4 - 88.3 Seconds Effective 06/07/2018 BASIC METABOLIC [id number] 04:52:00* Test Item Value Reference Range Interpretation [...] CA) 8.8 mg/dL 8.0-10.5 N BASIC METABOLIC [id number] 04:50:00* Test Item Value Reference Range Interpretation [...] CA) 8.8 mg/dL 8.0-10.5 N CBC W/AUTO [id number] 04:37:00* Test Item Value Reference Range Interpretation [...] = MDIFF) NO COMMENTS: Daily while on [id number] 04:33:00* Test Item Value Reference Range Interpretation Comments GLUBED (test code = GLUBED) 90 MG/DL 70-110 N Performed by certified engine lathe set up operator tool at [facility] [id number] 20:53:00* Test Item Value Reference Range Interpretation Comments GLUBED (test code = GLUBED) 66 MG/DL 70-110 L Performed by certified engine lathe set up operator tool at [facility] [id number] 19:16:00* Test Item Value Reference Range Interpretation Comments GLUBED (test code = GLUBED) 301 MG/DL 70-110 H Performed by certified engine lathe set up operator tool at [facility] [id number] 16:49:00* Test Item Value Reference Range Interpretation Comments GLUBED (test code = GLUBED) 111 MG/DL 70-110 H Performed by certified engine lathe set up operator tool at [facility] [id number] 14:20:00* Test Item Value Reference Range Interpretation Comments GLUBED (test code = GLUBED) 41 MG/DL 70-110 L Performed by certified engine lathe set up operator tool at [facility] [id number] 14:20:00* Test Item Value Reference Range Interpretation Comments GLUBED (test code = GLUBED) 37 MG/DL 70-110 L Performed by certified engine lathe set up operator tool at [facility] [id number] 12:25:00* Test Item Value Reference Range Interpretation Comments GLUBED (test code = GLUBED) 359 MG/DL 70-110 H Performed by certified engine lathe set up operator tool at [facility] [id number] 08:02:00* Test Item Value Reference Range Interpretation Comments GLUBED (test code = GLUBED) 41 MG/DL 70-110 L Performed by certified engine lathe set up operator tool at [facility] [id number] 08:01:00* Test Item Value Reference Range Interpretation Comments GLUBED (test code = GLUBED) 37 MG/DL 70-110 L Performed by certified engine lathe set up operator tool at [facility] THROMBOPLASTIN TIME [id number] 05:30:00* Test Item Value Reference Range Interpretation Comments THROMBOPLASTIN TIME PARTIAL (test code = PTT) 64.6 Seconds 25.0-39. 5 H Therapeutic Range: 50.4 - 88.3 Seconds Effective 06/07/2018 BASIC METABOLIC [id number] 05:18:00* Test Item Value Reference Range Interpretation [...] CA) 8.6 mg/dL 8.0-10.5 N CBC W/AUTO [id number] 05:12:00* Test Item Value Reference Range Interpretation [...] = MDIFF) NO COMMENTS: Daily while on [id number] 00:29:00* Test Item Value Reference Range Interpretation Comments GLUBED (test code = GLUBED) 191 MG/DL 70-110 H Performed by certified engine lathe set up operator tool at [facility] [id number] 00:28:00* Test Item Value Reference Range Interpretation Comments GLUBED (test code = GLUBED) 65 MG/DL 70-110 L Performed by certified engine lathe set up operator tool at [facility] [id number] 00:27:00* Test Item Value Reference Range Interpretation Comments GLUBED (test code = GLUBED) 55 MG/DL 70-110 L Performed by certified engine lathe set up operator tool at [facility] [id number] 21:14:00* Test Item Value Reference Range Interpretation Comments GLUBED (test code = GLUBED) 75 MG/DL 70-110 N Performed by certified engine lathe set up operator tool at [facility] - CT HEAD/BRAIN W/O [id number] 15:11:00 Name: VANDA HATCH [facility] : 1960 Age/S: 58 / F [address] [place], [place] [address]vd Unit #: [id number] Loc: [place] [address] Phys: Elzbieta Caballero NP Acct: [id number] Dis Date: Status: ADM IN PHONE #: [phone] Exam Date: 05/25/2019 1503 FAX #: [phone] Reason: double vision on left eye- dizziness EXAMS: CPT CODE: [id number] CT HEAD/BRAIN W/O CONT 35829 CT head without contrast 05/25/2019 HISTORY: Double [...] IMPRESSION: No acut e intracranial abnormality. SL: [id number] at 1511 Reported and signed b y: Kris Boles M.D. CC: Elda Cortés MD; Marvel Schroeder; Dennys Aguilar DO; Elzbieta Caballero NP Technologist:Linnea Brink, RT(R)(CT) CTDI: DLP: Trnscb Date/Time: 05/25/2019 (1511) [id number] P AGE 2 Signed Report GLUBED 2019-05-25 11:50:00* Test Item Value Reference Range Interpretation Comments GLUBED (test code = GLUBED) 216 MG/DL 70-110 H Performed by certified engine lathe set up operator tool at [facility] [id number] 10:16:00* Test Item Value Reference Range Interpretation Comments MAGNESIUM (test code = MAG) 2.00 mg/dL 1.8-2.4 N COMMENTS: please add to m labTHROMBOPLASTIN TIME [id number] 05:42:00* Test Item Value Reference Range Interpretation Comments THROMBOPLASTIN TIME PARTIAL (test code = PTT) 75.8 Seconds 25.0-39. 5 H Therapeutic Range: 50.4 - 88.3 Seconds Effective 06/07/2018 BASIC METABOLIC [id number] 05:39:00* Test Item Value Reference Range Interpretation [...] be done morning of Heart CathBASIC METABOLIC [id number] 05:35:00* Test Item Value Reference Range Interpretation [...] be done morning of Heart CathCBC W/AUTO [id number] 05:21:00* Test Item Value Reference Range Interpretation [...] be done morning of Heart CathTHROMBOPLASTIN TIME [id number] 23:44:00* Test Item Value Reference Range Interpretation Comments THROMBOPLASTIN TIME PARTIAL (test code = PTT) 75.8 Seconds 25.0-39. 5 H Therapeutic Range: 50.4 - 88.3 Seconds Effective 06/07/2018 [id number] 21:48:00* Test Item Value Reference Range Interpretation Comments GLUBED (test code = GLUBED) 107 MG/DL 70-110 N Performed by certified engine lathe set up operator tool at [facility] [id number] 17:49:00* Test Item Value Reference Range Interpretation Comments GLUBED (test code = GLUBED) 235 MG/DL 70-110 H Performed by certified engine lathe set up operator tool at [facility] [id number] 14:13:00* Test Item Value Reference Range Interpretation Comments GLUBED (test code = GLUBED) 257 MG/DL 70-110 H Performed by certified engine lathe set up operator tool at [facility] [id number] 12:49:00* Test Item Value Reference Range Interpretation Comments ACT-ISTAT (test code = ACTI) 263 SEC 74-137 H Performed by certified engine lathe set up operator tool at [facility] [id number] 11:56:00* Test Item Value Reference Range Interpretation Comments ACT-ISTAT (test code = ACTI) 252 SEC 74-137 H Performed by certified engine lathe set up operator tool at [facility] PROTHROMBIN [id number] 10:30:00* Test Item Value Reference Range Interpretation [...] CM 2019-05-24 10:25:00 FAX: Cory Flores NP [place]: St: ADM FAX: Elda De León MD [phone] FAX: Dennys Newell DO [phone] Name: MAMIEVANDA HANSEN [facility] : 1960 Age/S: 58/F [address] [place] [address] Unit #: [id number] Loc: [address] [place] [address] Phys: Cory Flores NP Acct: [id number] Dis Date: Status: ADM IN ONE #: [phone] Exam Date: 05/23/20191928 FAX #: [phone] Reason: EF 20% ANTERIOR WALL NOT MOVING Report Has Been Amended EXAMS: CPT CODE: [id number] CAR MRI MRP FN WO/[place] [id number] Addendum - 05/24/2019 S IGNED 05/24/2019 ADDENDUM: [id number] MRI/CMRIMWOW CM The left ventricular ejection fraction [...] Signed Report (CONTINUED) FAX: Cory Flores NP [place]: GC St: ADM FAX: Elda De León MD [phone] FAX: Dennys Newell DO [phone] Name: VANDA HATCH [facility] [place] : 1960 Age/S: 58/F [address] [place] [address] Blvd Unit #: [id number] Loc: [address] [place] [address] P hys: Cory Flores NP Acct: [id number] Dis Date: Status: ADM IN PHONE #: [phone] Exam Date: 05/23/20191928 FAX #: [phone] Reason: EF 20% ANTERIOR WALL NOT MOVING Report Has Been Amended EXAMS: CPT CODE: [id number] CAR MRI MRP FN WO/[place] [address] <Continued> Akinetic mid and apical anterior wall, [...] Report (CONTINUED) FA X: Cory Flores NP [place]: St: ADM FAX: Elda De León MD [phone] FAX: Dennys Newell DO ------ Name: VANDA HATCH [facility] : 1960 Age/S: 58/F [address] [place] [address] Blvd Unit #: [id number] Loc: [address] [place] [address] Phys: Cory Walsh NP Acct: [id number] Dis Date: Status: ADM IN PHONE #: [phone] Exam Date: 05/23/20191928 FAX #: [phone] Reason: EF 20% ANTERIOR WALL NOT MOVING Report Has Been Amended EXAMS: CPT CODE: [id number] CAR MRI MRP FN WO/[place] [address] <Continued> dictated as an addendum report after case post processing. 5. No visible valvular stenotic or regurgitant jet. 6. No signs of intracardiac thrombus, ventricular hypertrophy or aneurysm. 7. No pericardial thickening or effusion. 8. No significant extracardiac findings. SL: JUSTO-H at 1000 Reported and signed by: Paulo Blackwell M.D. CC: Cory Flores NP; Elda Cortés MD; Dennys Aguilar DO Technologist: Jonathan Hayden RT(R)(CT)(MR) Trnscrd Date/Time/By: 05/24/2019 (1000) : By: [email or web address] Orig Print D/T: S: 05/24/2019 (1003) PAGE 3 Signed Report CBC W/AUTO [id number] 10:11:00* Test Item Value Reference Range Interpretation [...] CM 2019-05-24 10:00:00 FAX: Cory Flores NP [place]: St: ADM FAX: Elda De León MD [phone] FAX: Dennys Newell DO [phone] Name: VANDA HATCH [facility] : 1960 Age/S: 58/F [address] [place] [address] Unit #: [id number] Loc: [address] [place] [address] Phys: Cory Flores NP Acct: [id number] Dis Date: Status: ADM IN ONE #: [phone] Exam Date: 05/23/20191928 FAX #: [phone] Reason: EF 20% ANTERIOR WALL NOT MOVING EXAMS: CPT CODE: [id number] CA R MRI MRP FN WO/W 91097 CARDIAC MRI WI TH AND WITHOUT IV [...] T2-WEIGHTED IMAG ING: PAGE 1 Signed Report ([facility] ED) FAX: Cory Flores NP [place]: St: ADM FAX: Elda De León MD [phone] FAX: Dennys Newell DO Name: MAMIEVANDA HANSEN [facility] : 1960 Age/S: 58/F [address] [place] [address] Blvd Unit #: [id number] Loc: [address] [place] [address] Ph ys: Cory Flores NP Acct: [id number] Dis Date: Status: ADM IN PHONE #: [phone] Exam Date: 05/23/20191928 FAX #: [phone] Reason: EF 20% ANTERIOR WALL NOT MOVING EXAMS: CPT CODE: [id number] CAR [place] MRP FN WO/[place] [address] <Continued> No evidence of myocardial edema. DELAYED [...] Paulo Sherman M.D. CC: Cory Flores NP; Elda Cortés MD; Dennys Aguilar DO Technologist: Jonathan Hayden RT(R)(CT)(MR) Trnscrd Date/Time/By: 05/24/2019 (1000) : By: [email or web address] Orig Print D/T: S: 02/2019 (1003) PAGE 2 Signed Repo rt [id number] 09:59:00* Test Item Value Reference Range Interpretation Comments GLUBED (test code = GLUBED) 202 MG/DL 70-110 H Performed by certified engine lathe set up operator tool at [facility] - DUP LE ART [id number] 08:36:00 Name: VANDA HATCH [facility] : 1960 Age/S: 58 / F [address] [place] [address] Unit #: [id number] Loc: [place] [address] Phys: Marvel Mariee MD Acct: [id number] Dis Date: Status: ADM IN PHONE #: [phone] Exam Date: 05/24/2019820 FAX #: [phone] Reason: COOL EXTREMITY, NUMBNESS EXAMS: CPT CODE: [id number] DUP LE ART [place] [address]87 Clinical Indication: Cold lower extremity, numbness; Comparison: None TECHNIQUE: Bilateral lower extremity arterial Doppler evaluation with YUKO was performed with benavidez scale, color scale and Doppler waveforms evaluation. FINDINGS: Right brachial: 134 mmHg Left brachial: 131 mmHg RIGHT LOWER EXTREMITY: PT index: Noncompressible DP index: Noncompressible FACULTY DEAN: Patent, triphasic waveform. SFA: Patent, triphasic waveform. Popliteal: Patent, biphasic waveform. Posterior tibial: Patent, monophasic waveform. Dorsalis pedis: Patent, dampened monophasic waveform. LEFT LOWER EXTREMITY: PT and DP: Inaudible FACULTY DEAN: Patent, Severely dampened parvus tardus monophasic waveform. SFA: No flow. Popliteal: Patent, severely dampened parvus tardus monophasic waveform. Posterior tibial: No flow. Dorsalis pedis: No flow. IMPRESSION: 1. No flow identified within the left SFA, posterior tibial, and dorsalis pedis arteries. Severely dampened and monophasic waveform in the FACULTY DEAN is suggestive of inflow disease. 2. Patent left lower extremity arterial vasculature. Noncompressible vessels preclude YUKO calculation. Attempts to contact Dr. Robins were initiated at 0835 hours on 05/24/2019. PAGE 1 Signed Report (CONTINUED) Name: VANDA HATCH [facility] : 1960 Age/S: 58 / F [address] [place] [address] Blvd Unit #: [id number] Loc: [place] [address] Phys: Marvel Mariee MD Acct: [id number] Dis Date: Status: ADM IN PHONE #: [phone] Exam Date: 05/24/2019820 FAX #: [phone] Reason: COOL EXTREMITY, NUMBNESS EXAMS: CPT CODE: [id number] DUP LE ART [place] 60663 < Continued> SL: [id number] at 0836 Reported and signed by: Leonard Chappell M.D. CC: Elda Cortés MD; Marvel Espinosa MD; Dennys Aguilar DO Technologist: Hermelinda Mercer RDMS(EMIR)(AB); ... Trnscb Date/Time: 05/24/2019 (0836) [email or web address] Orig Print D/T: S: 05/24/2019 (39) Probe: PAGE 2 Signed Report - DOP ART SGL LEVEL [id number] 08:36:00 Name: VANDA HATCH [facility] : 1960 Age/S: 58 / F [address] [place] [address] Unit #: [id number] Loc: [place] [address] Phys: Julienne,Goleila RECORDS TECHNICIAN Acct: [id number] Dis Date: Status: ADM IN PHONE #: [phone] Exam Date: 05/24/2019 08 FAX #: [phone] Reason: COOL EXTREMITY, NUMBNESS EXAMS: CPT CODE: [id number] DOP ART SGL LEVEL [place] [address]0264 Clinical Indication: Cold lower extremity, numbness; Comparison: None TECHNIQUE: Bilateral lower extremity arterial Doppler evaluation with YUKO was performed with benavidez scale, color scale and Doppler waveforms evaluation. FINDINGS: Right brachial: 134 mmHg Left brachial: 131 mmHg RIGHT LOWER EXTREMITY: PT index: Noncompressible DP index: Noncompressible FACULTY DEAN: Patent, triphasic waveform. SFA: Patent, triphasic waveform. Popliteal: Patent, biphasic waveform. Posterior tibial: Patent, monophasic waveform. Dorsalis pedis: Patent, dampened monophasic waveform. LEFT LOWER EXTREMITY: PT and DP: Inaudible FACULTY DEAN: Patent, Severely dampened parvus tardus monophasic waveform. SFA: No flow. Popliteal: Patent, severely dampened parvus tardus monophasic waveform. Posterior tibial: No flow. Dorsalis pedis: No flow. IMPRESSION: 1. No flow identified within the left SFA, posterior tibial, and dorsalis pedis arteries. Severely dampened and monophasic waveform in the FACULTY DEAN is suggestive of inflow disease. 2. Patent left lower extremity arterial vasculature. Noncompressible vessels preclude YUKO calculation. Attempts to contact Dr. Robins were initiated at 0835 hours on 05/24/2019. PAGE 1 Signed Report (CONTINUED) Name: VANDA HATCH [facility] : 1960 Age/S: 58 / F [address] [place] [address] Unit #: [id number] Loc: [place] [address] Phys: JulienneTamara RECORDS TECHNICIAN Acct: [id number] Dis Date: Status: ADM IN PHONE #: [phone] Exam Date: 05/24/2019819 FAX #: [phone] Reason: COOL EXTREMITY, NUMBNESS EXAMS: CPT CODE: [id number] DOP ART SGL LEVEL [place] 02799 < Continued> SL: [id number] at 0836 Reported and signed by: Leonard Chappell M.D. CC: Elda Cortés MD; Tamara Robins NP; Marvel Espinosa MD; Dennys Aguilar DO Technologist: Naomie Reyes RDMS(A)(BR) Trnscb Date/Time: 05/24/2019 (835) [email or web address] Orig Print D/T: S: 05/24/2019 (838) Probe: PAGE 2 Signed Report PROCALCITONIN (PCT)2019-05-24 [...] concentrations <2 ng/mL are obtained. BLOOD UREA [id number] 04:01:00* Test Item Value Reference Range Interpretation Comments BLOOD UREA NITROGEN (test code = BUN) 16 mg/dL 7-18 N [id number] 04:01:00* Test Item Value Reference Range Interpretation Comments CREATININE (test code = CREAT) 0.7 mg/dL 0.6-1.3 N [id number] 03:46:00* Test Item Value Reference Range Interpretation Comments GLUBED (test code = GLUBED) 123 MG/DL 70-110 H Performed by certified engine lathe set up operator tool at [facility] [id number] 21:53:00* Test Item Value Reference Range Interpretation Comments GLUBED (test code = GLUBED) 107 MG/DL 70-110 N Performed by certified engine lathe set up operator tool at [facility] [id number] 21:52:00* Test Item Value Reference Range Interpretation Comments GLUBED (test code = GLUBED) 102 MG/DL 70-110 N Performed by certified engine lathe set up operator tool at [facility] COMPREHENSIVE METABOLIC [id number] 15:38:00* Test Item Value Reference Range Interpretation [...] ALKP) 158 IUnit/L 20-125 H CBC W/AUTO [id number] 15:22:00* Test Item Value Reference Range Interpretation [...] DIFF REQUIRED (test code = MDIFF) NO [id number] 12:47:00* Test Item Value Reference Range Interpretation Comments GLUBED (test code = GLUBED) 32 MG/DL 70-110 L Performed by certified engine lathe set up operator tool at [facility] [id number] 12:26:00* Test Item Value Reference Range Interpretation Comments GLUBED (test code = GLUBED) 226 MG/DL 70-110 H Performed by certified engine lathe set up operator tool at [facility] [id number] 11:02:00* Test Item Value Reference Range [...] if any concentrations <2 ng/mL are obtained. [id number] 09:37:00* Test Item Value Reference Range Interpretation Comments GLUBED (test code = GLUBED) 231 MG/DL 70-110 H Performed by certified engine lathe set up operator tool at [facility] [id number] 08:20:00* Test Item Value Reference Range Interpretation Comments GLUBED (test code = GLUBED) 231 MG/DL 70-110 H Performed by certified engine lathe set up operator tool at [facility] LACTIC [id number] 04:32:00* Test Item Value Reference Range Interpretation Comments LACTIC ACID (test code = LACT) 1.7 mmol/L 0.4-1.9 N [id number] 04:09:00* Test Item Value Reference Range Interpretation Comments GLUBED (test code = GLUBED) 102 MG/DL 70-110 N Performed by certified engine lathe set up operator tool at [facility] [id number] 00:20:00* Test Item Value Reference Range Interpretation Comments GLUBED (test code = GLUBED) 178 MG/DL 70-110 H Performed by certified engine lathe set up operator tool at [facility] [id number] 21:53:00* Test Item Value Reference Range Interpretation Comments GLUBED (test code = GLUBED) 361 MG/DL 70-110 H Performed by certified engine lathe set up operator tool at [facility] [id number] 21:15:00* Test Item Value Reference Range Interpretation Comments GLUBED (test code = GLUBED) 395 MG/DL 70-110 H Performed by certified engine lathe set up operator tool at [facility] [id number] 17:41:00* Test Item Value Reference Range Interpretation Comments GLUBED (test code = GLUBED) 216 MG/DL 70-110 H Performed by certified engine lathe set up operator tool at [facility] - DUP VEIN [id number] 17:14:00 Name: VANDA HATCH [facility] : 1960 Age/S: 58 / F [address] [place] [address] Blvd Unit #: [id number] Loc: [place] [address] Phys: Cory Flores NP Acct: [id number] Dis Date: Status: ADM IN PHONE #: [phone] Exam Date: 05/22/20191657 FAX #: [phone] Reason: VEIN MAPPING AND MARKING EXAMS: CPT CODE: [id number] DUP VEIN [place] [address]85 INDICATION: Acute systolic heart failure. Pre-CABG evaluation. [...] Smith Edwards M.D. CC: Cory Flores NP; Elda Cortés MD; Dennys Aguilar DO Technologist: Darline Cantor RDMS(AB)(RCT) Trnscb Date/Time: 05/22/2019 (1713) [email or web address] Orig Print D/T: S: 05/22/2019 (1716) Probe: PAGE 1 Signed Report - DUP EXTRACRANIAL PORTILLO 2019-05-22 17:03:00 Name: VANDA HATCH [facility] : 1960 Age/S: 58 / F [address] [place] [address] Unit #: [id number] Loc: [place] [address] Phys: Cory Flores NP Acct: [id number] Dis Date: Status: ADM IN PHONE #: [phone] Exam Date: 05/22/2019 1658 FAX #: [phone] Reason: PRE CAB EVAL EXAMS: CPT CODE: [id number] DUP EXTRACRANIAL [place] 38188 PROCEDURE: CAROTID DOPPLER INDICATION: PRE CAB EVAL; [...] 1 Signed Report (CONTINUED) Name: VANDA CROW [facility] : 1960 Age/S: 58 / F [address] [place] [address] Blvd Unit #: [id number] L oc: [place] [address] Phys: Cory Flores NP Acct: [id number] Dis Date: Status: ADM IN PHONE #: [phone] Exam Date: 05/22/2019 1658 FAX #: [phone] Tricia son: PRE CAB EVAL EXAMS: CPT CODE: [id number] DUP EXTRACRANIAL [place] 15225 <Continued> FOR INTERNAL CODING PURPOSES ONLY RESULT CODE: CAR SL: KL-H at 1703 Reported and signed by: Smith Edwards M.D. CC: Cory Flores NP; Elda Cortés MD; Dennys Aguilar DO Technologist: Darline Cantor RDMS()(RCT) Trnscb Date/Time: 05/22/2019 (170) Yrn Orig Print D/T: S: 05/22/2019 (1706) Probe: PAGE 2 Signed Report - CT CHEST W/O [id number] 16:43:00 Name: VANDA HATCH [facility] : 1960 Age/S: 58 / F [address] [place] [address] Unit #: [id number] Loc: [place] [address] Phys: Rolando Flores NP Acct: [id number] Di s Date: Status: ADM IN PHONE #: Exam Date: 05/22/2019 1555 FAX #: Reason: PRE CAB EVAL EXAMS: CPT CODE: [id number] CT CHEST W/O CONTRAST 92623 PROCEDURE: CT CHEST WITHO UT CONTRAST 05/22/2019 [...] 1 Signed Report (CONTINUED) Name: VANDA HATCH [facility] : 1960 Age/S: 58 / F [address] [place] [address] Blvd Unit #: [id number] Loc: [place] [address] Phys: Rolando Flores RECORDS TECHNICIAN Acct: [id number] Di s Date: Status: ADM IN PHONE #: Exam Date: 05/22/2019 0227 FAX #: Reason: PRE CAB EVAL EXAMS: CPT CODE: [id number] CT CHEST W/O CONTRAST 67249 <Continued> ____ CT imaging performed at this location utilizes radiation dose optimization techniques which include one or more of the following: - Automated exposure control -Adjustment of the mA and/or kV according to patient size -Use of iterative reconstruction technique SL: [id number] at 1643 Reported and signed by: Paulo Blackwell M.D. CC: Cory Flores NP; Elda Cortés MD; Dennys Aguilar DO Technologist:RT Theo(R)(CT) CTDI: DLP: Trnscb Date/Time: 05/22/2019 (803) [email or web address] Orig Print D/T: S: 05/22/2019 (7639) PAGE 2 Signed Report URINALYSIS [id number] 15:59:00* Test Item Value Reference Range Interpretation [...] code = MUCU) TRACE /LPF NONE SEEN [id number] 13:45:00* Test Item Value Reference Range Interpretation Comments GLUBED (test code = GLUBED) 183 MG/DL 70-110 H Performed by certified engine lathe set up operator tool at [facility] [id number] 07:32:00* Test Item Value Reference Range Interpretation Comments GLUBED (test code = GLUBED) 131 MG/DL 70-110 H Performed by certified engine lathe set up operator tool at [facility] - XR CHEST 2 [id number] 12:29:00 FAX: Elda De León MD [phone] [place]: St: PRE FAX: Dennys Newell DO [phone] Name: VANDA HATCH [facility] : 1960 Age/S: 58/F [address] [place] [address] Blvd Unit #: [id number] Loc: [place] [address] Phys: Elda Cortés MD Acct: [id number] Dis Date: Status: PRE [facility] PHONE #: [phone] Exam Date: 05/18/20191226 FAX #: [phone] Reason: PREOP EXAMS: CPT CODE: [id number] XR CHEST 2 V 55699 EXAM: CHEST TWO VIEW HISTORY: 58-year-old female with systolic heart failure COMPARISON: None. FINDINGS: The lungs are clear. The cardiomediastinal silhouette is mildly prominent. No acute osseous abnormality. IMPRESSION: 1. No acute cardiopulmonary abnormality. SL: [id number] at 122 Reported and signed by: Carl Perez M.D. CC: Elda Cortés MD; Dennys Aguilar DO Technologist: RT Marita(R) Trnscrd Date/Time/By: 05/18/2019 (9082) : By: [email or web address] [facility] Print D/T: S: 05/18/2019 (6030) PAGE 1 Signed Report BASIC METABOLIC [id number] 12:18:00* Test Item Value Reference Range Interpretation [...] CA) 10.2 mg/dL 8.0-10.5 N BASIC METABOLIC [id number] 12:17:00* Test Item Value Reference Range Interpretation [...] = CA) 10.2 mg/dL 8.0-10.5 N PROTHROMBIN [id number] 12:12:00* Test Item Value Reference Range Interpretation [...] Infarction (to prevent recurrent infarct). CBC W/AUTO [id number] 12:05:00* Test Item Value Reference Range Interpretation [...]
[2019-10-26] MEDS ORDERED: MORPHINE SULFATE 2 MG/ML SYR 1ML ONE (18:36)
[2019-10-26] MEDS: ONDANSETRON HCL INJ 2MG/ML 2ML 2 MG/ML VIAL IV PRN (18:59)
[2019-10-26] MEDS: MORPHINE SULFATE INJ 4 MG/ML INJ 1ML IV PRN (18:59)
--- NOTE | 2019-10-26 19:11 | NUR ---
Report given to Janet.
[2019-10-26] MEDS ORDERED: ASPIRIN 81 MG CHEW TAB PO ONE (19:15)
[2019-10-26 19:20] LABS: BASOPHILS # (AUTO) 0.1 (0.0-0.1); BASOPHILS % 0.5 % (0.0-1.0); EOSINOPHILS # (AUTO) 0.1 (0.0-0.4); EOSINOPHILS % 0.5 % (0.0-6.0); HEMATOCRIT 37.3 % (34.2-44.1); HEMOGLOBIN 12.4 g/dL (12.0-16.0); LYMPHOCYTES # (AUTO) 1.6 (1.0-3.2); LYMPHOCYTES % 10.8 % (18.0-39.1); MEAN CORPUSCULAR HEMOGLOBIN 30.2 pg (28-32); MEAN CORPUSCULAR HGB CONC 33.2 g/dL (31-35); MEAN CORPUSCULAR VOLUME 90.8 fL (81-99); MONOCYTES # (AUTO) 0.5 (0.2-0.8); MONOCYTES % 3.5 % (4.4-11.3); NEUTROPHILS # (AUTO) 12.6 (2.1-6.9); PLATELET COUNT 308 x10e3/uL (140-360); RED BLOOD COUNT 4.11 x10e6/uL (3.6-5.1); RED CELL DISTRIBUTION WIDTH 15.6 % (11.7-14.4)
[2019-10-26 19:33] LABS: ALBUMIN 4.9 g/dL (3.5-5.0); ALBUMIN/GLOBULIN RATIO 1.5 (0.8-2.0); ANION GAP 19.5 mmol/L (8-16); CALCIUM 9.8 mg/dL (8.4-10.2); CREATININE, SERUM 1.27 mg/dL (0.57-1.11); POTASSIUM 3.5 mmol/L (3.5-5.1)
[2019-10-26 19:39] LABS: CREATINE KINASE MB 4.2 ng/mL (0-5.0)
[2019-10-26] MEDS ORDERED: MORPHINE SULFATE INJ 4 MG/ML INJ 1ML IV STA (20:03)
[2019-10-26] MEDS ORDERED: DEXTROSE 50% SYRINGE 50 ML IV PRN (20:30)
[2019-10-26] MEDS: INSULIN REGULAR, HUMAN 100 UNIT/1 ML 3ML VIAL SQ SCH (21:00)
[2019-10-26 21:16] VITALS: BP 98/88
--- NOTE | 2019-10-26 22:30 | NUR ---
Pt admitted to room 214 via stretcher from home. Pt alert and oriented to name, hospital, time, and diagnosis: Right hip fracture. Pt had fall at home. Pt c/o moderate right hip pain, repositioned in bed. Pt denies dysuria, urine yellow and clear. Pt lungs CTA, denies SOB or dyspnea. Pt oriented to room, transition of care folder, bed low and locked. Informed to call for assistance. Purewick in place. Pt verbalized understanding.
[2019-10-26 22:41] VITALS: BP 98/88
[2019-10-27] VITALS (7 sets, daily range): BP systolic 91–115; BP diastolic 47–58
[2019-10-27 06:24] LABS: BASOPHILS # (AUTO) 0.1 (0.0-0.1); BASOPHILS % 0.5 % (0.0-1.0); EOSINOPHILS # (AUTO) 0.3 (0.0-0.4); EOSINOPHILS % 2.2 % (0.0-6.0); HEMATOCRIT 35.7 % (34.2-44.1); HEMOGLOBIN 11.7 g/dL (12.0-16.0); LYMPHOCYTES # (AUTO) 1.5 (1.0-3.2); LYMPHOCYTES % 12.2 % (18.0-39.1); MEAN CORPUSCULAR HEMOGLOBIN 29.9 pg (28-32); MEAN CORPUSCULAR HGB CONC 32.8 g/dL (31-35); MEAN CORPUSCULAR VOLUME 91.3 fL (81-99); MONOCYTES # (AUTO) 0.5 (0.2-0.8); MONOCYTES % 4.4 % (4.4-11.3); NEUTROPHILS # (AUTO) 9.7 (2.1-6.9); NEUTROPHILS % 80.3 % (38.7-80.0); PLATELET COUNT 279 x10e3/uL (140-360); RED BLOOD COUNT 3.91 x10e6/uL (3.6-5.1); RED CELL DISTRIBUTION WIDTH 15.6 % (11.7-14.4)
[2019-10-27] MEDS ORDERED: MAGNESIUM OXID400 MG PO (06:43)
[2019-10-27] MEDS ORDERED: ATORVASTATIN CA20 MG PO (06:43)
[2019-10-27] MEDS ORDERED: NOVOLOG100 UNIT/1 SC (06:43)
[2019-10-27] MEDS ORDERED: AMIODARONE HCL200 MG PO (06:43)
[2019-10-27] MEDS ORDERED: SPIRONOLACTONE25 MG PO (06:43)
[2019-10-27] MEDS ORDERED: BUMETANIDE2 MG PO (06:43)
[2019-10-27] MEDS ORDERED: MIDODRINE HCL5 MG PO (06:43)
[2019-10-27] MEDS ORDERED: VITAMIN B-121000 MCG PO (06:43)
[2019-10-27] MEDS ORDERED: GABAPENTIN100 MG (06:43)
[2019-10-27] MEDS ORDERED: PROTONIX20 MG PO (06:43)
[2019-10-27] MEDS ORDERED: ASPIRIN EC81 MG PO (06:43)
[2019-10-27 06:51] LABS: ALBUMIN 4.3 g/dL (3.5-5.0); ALBUMIN/GLOBULIN RATIO 1.4 (0.8-2.0); ANION GAP 19.6 mmol/L (8-16); CALCIUM 9.2 mg/dL (8.4-10.2); CREATININE, SERUM 1.22 mg/dL (0.57-1.11)
[2019-10-27 07:03] LABS: POTASSIUM 4.6 mmol/L (3.5-5.1)
[2019-10-27] MEDS: INSULIN REGULAR, HUMAN 100 UNIT/1 ML 3ML VIAL SQ SCH ×4 (07:30→21:35)
--- NOTE | 2019-10-27 07:45 | NUR ---
PATIENT IN BED WITH NO S/S OF DISTRESS. BOX TRACTION TO RIGHT FOOT, KIRAN HOSE TO LOWER EXTREMITIES. BED IN LOWER POSITION, CALL LIGHT AT REACH.
--- NOTE | 2019-10-27 08:25 | NUR ---
SPOKE WITH DR BALDWIN, NEW ORDER RECEIVED.
--- NOTE | 2019-10-27 11:10 | NUR ---
URINE SPECIMEN COLLECTED AND SENT TO THE LAB. BED SIDE EKG IN PROGRESS.
--- NOTE | 2019-10-27 11:13 | Consultation ---
DATE OF CONSULTATION: Cardiology Consult HISTORY OF PRESENT ILLNESS: Elsie Henderson is a 58-year-old female with a primary history of hypertension, diabetes, CAD with previous PCIs and stent, CABG in 05/2019, CHF, AICD implantation on 09/11/2019, colon cancer status post resection. Admitted for right femoral head fracture/right hip fracture. The patient had a fall at home after what she said she was just (galloping)/dancing when she fell and unable to stand up after she fell because of extreme pain to the right lower extremity. The patient denies any syncopal episodes. Denies any chest pain, shortness of breath, dizziness, palpitations, or any GI symptoms. She also reports she moves independently/ambulate independently without any problems prior to the fall. Cardiology is consulted to clear the patient for possible surgery. PAST MEDICAL HISTORY: Hypertension, diabetes, CAD, and colon cancer. PAST SURGICAL HISTORY: AICD on 09/11/2019, CABG 06/12/2019, and appendectomy. SOCIAL HISTORY: Nonsmoker. No EtOH abuse or use. FAMILY HISTORY: Mom and dad, significant for heart disease. HOME MEDICATIONS: Includes amiodarone 200 mg tablet daily, aspirin 81 mg daily, atorvastatin 20 mg daily, bumetanide 2 mg daily, pantoprazole 20 mg tablet daily, spironolactone 100 mg tablet daily, magnesium oxide 400 mg daily, gabapentin 200 mg t.i.d., midodrine 10 mg p.o. b.i.d. PHYSICAL EXAMINATION: CURRENT VITAL SIGNS: Includes 99.8 temperature, pulse of 71, respirations 18, blood pressure is 107/48, pulse oximetry 97% on room air. GENERAL: The patient is well-developed and well-nourished. No acute respiratory distress. SKIN: Normal in appearance, texture, and temperature. Warm and dry. HEENT: The patient's cranium is normocephalic and atraumatic. Pupils are equally round and reactive to light and accommodation. Sclerae nonicteric. Ears are normal. Mucosa is moist. Throat is clear. NECK: Supple. Full range of motion. No cervical lymphadenopathy. No thyromegaly. Carotid artery upstroke is normal bilaterally without bruits. No JVD or hepatojugular reflux. RESPIRATORY: Normal respiratory effort. LUNGS: Clear to auscultation bilaterally. No wheezing. No rhonchi or rales or rubs. CARDIOVASCULAR: S1 and S2 audible. Regular rate and rhythm. PMI is in the 5th intercostal space at the midclavicular line. No significant murmurs heard. GI: Soft, nontender, and nondistended. Bowel sounds are present. EXTREMITIES: No cyanosis, no clubbing, no edema. NEUROVASCULAR: Motor is intact. Pulses are palpable 2+ throughout. NEUROLOGIC: Motor and sensory examination of the upper and lower extremities is normal. ASSESSMENT AND PLAN: Elsie Henderson is a 58-year-old female, admitted for right hip fracture. Cardiology is consulted to clear the patient for possible surgery. 1. Monitor hemodynamics and continue telemetry monitoring pre and postoperatively. 2. Obtain echocardiogram and baseline EKG. 3. Continue medical therapy to optimize BP and heart rate control pre and postop. Continue statin. No further cardiac testing is indicated prior to procedure since the patient was just seen in the Cardiology Clinic by Dr. Cortés recently. 4. Timing of surgery per primary and surgical team. Thank you for this consultation. We will continue to follow. Dictated by Kaela Hodges NP MD ARIELLA Philip/GIFTY /[id number]
[2019-10-27 11:15] LABS: CHOL/HDL RATIO 2.5 (3.0-3.6)
[2019-10-27 11:24] LABS: BILIRUBIN,URINE NEGATIVE (NEGATIVE); CLARITY,URINE CLEAR (CLEAR); COLOR,URINE YELLOW (YELLOW); KETONES,URINE NEGATIVE (NEGATIVE); LEUKOCYTE ESTERASE ,URINE NEGATIVE (NEGATIVE); NITRITE,URINE NEGATIVE (NEGATIVE); PROTEIN,URINE DIPSTICK 1+ (NEGATIVE); URINE UROBILINOGEN 0.2 mg/dL (0.2 - 1)
[2019-10-27 11:29] LABS: BACTERIA,URINE RARE /HPF; EPITHELIAL CELLS,URINE FEW /LPF; RBC,URINE 0-5 /HPF (0-5); WBC,URINE (MAN) 0-5 /HPF (0-5)
[2019-10-27] MEDS: MORPHINE SULFATE INJ 4 MG/ML INJ 1ML IV PRN ×2 (14:00→21:40)
--- NOTE | 2019-10-27 15:09 | NUR ---
PATIENT C/O PAIN AND WAS MEDICATED ORDERED. NO FURTHER C/O PAIN. WILL CLOSELY MONITOR.
--- NOTE | 2019-10-27 19:10 | NUR ---
Patient visited in room during nursing rounds. Patient alert and oriented x3. Pt on strict bed rest at this time. Right leg on Gold's traction with use of leg boot and 5 lb weight for stability. Pt has intermittent pain on right hip (due to fracture) and will be medicated accordingly. Pt on purewick for extra comfort. Call clancy within reach. Will monitor pt closely.
[2019-10-27] MEDS: GABAPENTIN 100 MG CAP PO SCH (21:35)
[2019-10-27] MEDS: ATORVASTATIN 20 MG TAB PO SCH (21:35)
[2019-10-27] MEDS: ONDANSETRON HCL INJ 2MG/ML 2ML 2 MG/ML VIAL IV PRN (21:40)
[2019-10-28] VITALS (8 sets, daily range): BP systolic 88–119; BP diastolic 40–52
[2019-10-28] MEDS: ONDANSETRON HCL INJ 2MG/ML 2ML 2 MG/ML VIAL IV PRN (06:04)
[2019-10-28] MEDS: MORPHINE SULFATE INJ 4 MG/ML INJ 1ML IV PRN ×3 (06:04→19:01)
[2019-10-28 06:37] LABS: ANION GAP 16.3 mmol/L (8-16); CREATININE, SERUM 1.26 mg/dL (0.57-1.11); POTASSIUM 4.3 mmol/L (3.5-5.1)
--- NOTE | 2019-10-28 07:25 | NUR ---
PATIENT IN BED RESTING WITH HEAD OF BED ELEVATED, NO DISTRESS NOTED. ALLEVYN DRESSING APPLIED TO SACRUM FOR PROTECTIN. JACKSON TRACTION IN PLACE TO RIGHT LEG. BED IN LOWER POSITION, CALL LIGHT AT REACH.
[2019-10-28] MEDS: INSULIN REGULAR, HUMAN 100 UNIT/1 ML 3ML VIAL SQ SCH ×4 (07:30→21:00)
[2019-10-28] MEDS: GABAPENTIN 100 MG CAP PO SCH ×3 (09:14→21:09)
[2019-10-28] MEDS: SPIRONOLACTONE 25 MG TAB PO SCH (09:14)
[2019-10-28] MEDS: AMIODARONE HCL 200 MG TAB PO SCH (09:14)
[2019-10-28] MEDS ORDERED: ENOXAPARIN SOD INJ 60 MG/0.6 ML SYR SC SCH (10:30)
--- NOTE | 2019-10-28 11:27 | NUR ---
ECHO COMPLETED AT BED SIDE. PATIENT REPOSITIONED IN BED. CALL LIGHT AT REACH.
--- NOTE | 2019-10-28 12:41 | NUR ---
SPOKE WITH MD REGARDING ELEVATED BLOOD SUGAR, NEW ORDER RECEIVED.
[2019-10-28] MEDS ORDERED: DEXTROSE 50% SYRINGE 50 ML IV PRN (12:45)
[2019-10-28] MEDS ORDERED: INSULIN REGULAR, HUMAN 100 UNIT/1 ML 3ML VIAL SQ ONE (13:15)
[2019-10-28] MEDS ORDERED: CEFAZOLIN SOD 1 GM/NS 50ML 100 ML IV ONE (16:15)
--- NOTE | 2019-10-28 16:15 | NUR ---
MD IN TO SEE PATIENT, NEW ORDER RECEIVED.
--- NOTE | 2019-10-28 19:25 | NUR ---
Patient visited in room during nursing rounds. Patient alert and oriented x3. Pt on strict bed rest at this time. Right leg on Gold's traction with use of leg boot and 5 lb weight for stability. Pt has intermittent pain on right hip (due to fracture) and will be medicated accordingly. Pt on purewick for extra comfort. Pt aware she is scheduled for surgery (Right Hip Hemiarthroplasty) tomorrow (10/29/19) by Dr. Ribera and will be NPO at midnight tonight. Call clancy within reach. Will monitor pt closely.
--- NOTE | 2019-10-28 21:00 | NUR ---
Fingerstick blood glucose was 37. Patient asymptomatic and will be medicated with 1 amp of D50 per protocol.
--- NOTE | 2019-10-28 21:07 | NUR ---
Patient given 1 amp of D50 per protocol.
[2019-10-28] MEDS: ATORVASTATIN 20 MG TAB PO SCH (21:09)
--- NOTE | 2019-10-28 21:30 | NUR ---
Patient's fingerstick glucose re-checked and it was 179. Patient states she feels fine. Pt also eating snack (1 carton of milk) and a cup of juice.
[2019-10-29] VITALS (8 sets, daily range): BP systolic 98–121; BP diastolic 42–61
[2019-10-29] MEDS: SODIUM CHLORIDE 0.9% 1000ML 1,000 ML IV SCH ×3 (00:21→12:58)
[2019-10-29] MEDS ORDERED: CEFAZOLIN SOD 1 GM/NS 50ML 100 ML IV ONE (07:00)
--- NOTE | 2019-10-29 07:20 | NUR ---
PATIENT IN BED RESTING WITH NO S/S OF DISTRESS. REMAINS NPO FOR A PROCEDURE. IV FLUID INFUSING ORDERED. JACKSON TRACTION IN PLACE. BED IN LOWER POSITION, CALL LIGHT AT REACH.
[2019-10-29] MEDS: INSULIN REGULAR, HUMAN 100 UNIT/1 ML 3ML VIAL SQ SCH ×4 (07:30→21:51)
[2019-10-29] MEDS ORDERED: ACETAMINOPHEN 1000 MG/100 ML 100 ML IV ONE (07:45)
--- NOTE | 2019-10-29 08:25 | NUR ---
PATIENT OFF UNIT TO OR.
[2019-10-29] MEDS: AMIODARONE HCL 200 MG TAB PO SCH (09:00)
[2019-10-29] MEDS: GABAPENTIN 100 MG CAP PO SCH ×3 (09:00→21:24)
[2019-10-29] MEDS: SPIRONOLACTONE 25 MG TAB PO SCH (09:00)
[2019-10-29] MEDS ORDERED: ACETAMINOPHEN 1000 MG/100 ML IV PRN (11:15)
[2019-10-29] MEDS ORDERED: NALOXONE HCL INJ 0.4 MG/ML AMP IV PRN (11:15)
[2019-10-29] MEDS ORDERED: HYDROMORPHONE 0.2MG/ML-SOD CHL 30ML PCA SYRINGE IV PRN (11:15)
[2019-10-29] MEDS ORDERED: ONDANSETRON HCL INJ 2MG/ML 2ML 2 MG/ML VIAL IV PRN (11:15)
--- NOTE | 2019-10-29 11:23 | Diagnostic Imaging Report ---
HIP RIGHT ONE VIEW / OR - Multiple views HISTORY: RT MALU HIP IN OR COMPARISON: ] X-ray dated 10/26/2019. FINDINGS: Bones: Status post right hip arthroplasty for the previously seen right femoral neck fracture. No hardware failure. Osseous alignment is within normal limits. Joints: There is left hip joint space narrowing and bone production compatible with osteoarthritis. Soft tissues: There is mild soft tissue swelling about the fracture site. IMPRESSION: Status post right hip arthroplasty for the previously seen right femoral neck fracture. No hardware failure. Signed by: Naun Quintanilla MD on 10/29/2019 11:20 AM
[2019-10-29] MEDS ORDERED: HYDROMORPHONE 0.2MG/ML-SOD CHL 30ML PCA SYRINGE IV ONE (11:40)
--- NOTE | 2019-10-29 12:41 | Diagnostic Imaging Report ---
PELVIS AP 1-2 VIEWS - Multiple views HISTORY:POST OP COMPARISON: ] X-ray dated 10/26/2019. Right hip performed earlier same day FINDINGS: Bones: Status post right hip arthroplasty for the previously seen right femoral neck fracture. The stem has changed compared to prior exam. No hardware failure. Osseous alignment is within normal limits. Joints: There is left hip joint space narrowing and bone production compatible with osteoarthritis. Soft tissues: There is mild soft tissue swelling about the fracture site. IMPRESSION: Status post right hip arthroplasty for the previously seen right femoral neck fracture. The stem has changed compared to prior exam. Signed by: Naun Quintanilla MD on 10/29/2019 12:37 PM
--- NOTE | 2019-10-29 13:30 | NUR ---
PATIENT TRANSFERRED TO MED SURG 1 ROOM 111 AFTER SURGERY. BED SIDE REPORT GIVEN TO RECEIVING NURSE. ALL PERSONAL ITEMS TRANSFERRED TO ROOM 111.
[2019-10-29] MEDS: CEFAZOLIN SOD 1 GM/NS 50ML 50 ML IV SCH ×2 (13:54→21:24)
[2019-10-29] MEDS ORDERED: SEVOFLURANE INHAL SOLN 250 ML PEN BTL ONE (14:20)
[2019-10-29] MEDS ORDERED: LIDOCAINE HCL 2% LOCAL INJ 5 ML SDV VIAL INJ ONE (14:20)
[2019-10-29] MEDS ORDERED: SUCCINYLCHOLINE CHLORIDE 20 MG/ML 10ML VIAL ONE (14:20)
[2019-10-29] MEDS ORDERED: EPHEDRINE SULFATE INJ 50 MG/ML VIAL ONE (14:20)
[2019-10-29] MEDS ORDERED: PROPOFOL IV EMULSION 10 MG/ML 20 ML VIAL ONE (14:20)
[2019-10-29] MEDS ORDERED: DEXAMETHASONE SOD PHOS INJ 4 MG/ML VIAL ONE (14:20)
[2019-10-29] MEDS ORDERED: CEFAZOLIN SOD 1 GM VIAL ONE (14:20)
[2019-10-29] MEDS ORDERED: ONDANSETRON HCL INJ 2MG/ML 2ML 2 MG/ML VIAL ONE (14:20)
[2019-10-29] MEDS ORDERED: MIDAZOLAM HCL 2 MG/2 ML VIAL ONE (18:32)
[2019-10-29] MEDS ORDERED: FENTANYL CITRATE/PF 100MCG/2 ML INJ ONE (18:32)
--- NOTE | 2019-10-29 18:45 | NUR ---
RECEIVED REPORT FROM PREVIOUS NURSE. CALL LIGHT WITHIN REACH. PATIENT IN BED.
[2019-10-29] MEDS: ATORVASTATIN 20 MG TAB PO SCH (21:24)
[2019-10-30] VITALS (8 sets, daily range): BP systolic 98–109; BP diastolic 50–72
[2019-10-30] MEDS: SODIUM CHLORIDE 0.9% 1000ML 1,000 ML IV SCH ×3 (01:13→07:52)
[2019-10-30] MEDS: CEFAZOLIN SOD 1 GM/NS 50ML 50 ML IV SCH (05:20)
[2019-10-30] MEDS: RIVAROXABAN 10 MG TABLET PO SCH ×2 (05:20→17:27)
[2019-10-30 06:10] LABS: HEMATOCRIT 27.6 % (34.2-44.1)
--- NOTE | 2019-10-30 07:13 | NUR ---
GAVE BEDSIDE SHIFT REPORT TO ONCOMING NURSE. CALL LIGHT WITHIN REACH. PATIENT IN BED. HOURLY ROUNDING PERFORMED.
[2019-10-30] MEDS: SPIRONOLACTONE 25 MG TAB PO SCH (08:29)
[2019-10-30] MEDS: INSULIN REGULAR, HUMAN 100 UNIT/1 ML 3ML VIAL SQ SCH ×4 (08:29→21:21)
[2019-10-30] MEDS: AMIODARONE HCL 200 MG TAB PO SCH (08:29)
[2019-10-30] MEDS: GABAPENTIN 100 MG CAP PO SCH ×3 (08:29→21:20)
--- NOTE | 2019-10-30 12:06 | NUR ---
ORDERS FOR REHAB PT CHOICE [facility] CHO[facility] LETTER SIGNED AND PLACED ON CHART ORDERS FOR DR PERSON TO CONSULT
[2019-10-30] MEDS: HYDROCODONE/APAP 5MG-325MG TAB PO PRN ×2 (13:30→17:39)
--- NOTE | 2019-10-30 19:00 | NUR ---
RECEIVED PATIENT IN BEDSIDE SHIFT REPORT. PATIENT RESTING IN BED AT THIS TIME. MODERATE PAIN REPORTED, BUT PATIENT WANTS TO WAIT UNTIL BEDTIME FOR PAIN MEDICATION. NO S&S OF DISTRESS NOTED. HIP ABDUCTOR PILLOW IN PLACE. BED LOCKED IN LOWEST POSITION, SIDE RAILS UPX2, CALL LIGHT IN REACH.
[2019-10-30] MEDS: ATORVASTATIN 20 MG TAB PO SCH (21:20)
[2019-10-30] MEDS: MORPHINE SULFATE INJ 4 MG/ML INJ 1ML IV PRN (21:51)
[2019-10-31] VITALS (8 sets, daily range): BP systolic 96–122; BP diastolic 43–59
--- NOTE | 2019-10-31 05:00 | NUR ---
PATIENT REFUSING TO BE CHANGED AT THIS TIME, STATING IT IS "NOT TIME." STATES SHE DOES NOT FEEL WET, BUT WILL NOT ALLOW STAFF TO CHECK.
[2019-10-31 05:34] LABS: HEMATOCRIT 25.8 % (34.2-44.1); HEMOGLOBIN 8.5 g/dL (12.0-16.0)
[2019-10-31] MEDS: HYDROCODONE/APAP 5MG-325MG TAB PO PRN ×2 (06:05→13:58)
[2019-10-31] MEDS: INSULIN REGULAR, HUMAN 100 UNIT/1 ML 3ML VIAL SQ SCH ×4 (07:30→20:34)
[2019-10-31] MEDS: AMIODARONE HCL 200 MG TAB PO SCH (08:02)
[2019-10-31] MEDS: GABAPENTIN 100 MG CAP PO SCH ×3 (08:02→20:33)
[2019-10-31] MEDS: SPIRONOLACTONE 25 MG TAB PO SCH (08:02)
--- NOTE | 2019-10-31 08:49 | NUR ---
CLINICAL INFORMATION [facility] TO [facility] AT [phone]; CONFIRMATION REC'D CALL PLACED TO SAMMY WITH [facility] TO CONFIRM THAT SHE REC'D FAX CELL: [phone] LEFT MESSAGE AND AWAIT CALL BACK DR PERSON STILL PENDING TO SEE PT
--- NOTE | 2019-10-31 09:38 | Operative Report ---
DATE OF PROCEDURE: 10/29/2019 SURGEON: Remberto Ribera MD PREOPERATIVE DIAGNOSIS: Displaced right femoral neck fracture. POSTOPERATIVE DIAGNOSIS: Displaced right femoral neck fracture. OPERATION AND PROCEDURE PERFORMED: The patient underwent a right hip uncemented hemiarthroplasty with a size 14 stem and a size 45 Endo Head. HUMIDIFIER ATTENDANT: None. ANESTHESIA: General endotracheal intubation anesthesia. IV FLUIDS: Per the Anesthesia record. BRIEF DESCRIPTION OF THE PATIENT'S OPERATIVE PROCEDURE: Ms. Henderson was taken to the operating room and placed in supine position on the operative table. Following induction of general anesthesia as well as endotracheal intubation, the patient's right lower extremity was examined under anesthesia. She was found to have mild swelling and bruising about the right hip joint. Her leg was externally rotated and shortened considerably when compared to the non affected side. Following induction of general anesthesia and endotracheal intubation, the patient was turned into a lateral position with the right side up. She was held in place with well-padded hip positioners. Her bilateral lower extremities were also well padded. An axillary roll was placed in the left chest wall. The patient's thigh and flank were then prepped and draped in standard surgical fashion. A standard posterior lateral approach to the hip was undertaken. A curvilinear incision centered over the trochanter was carried through the skin and subcutaneous tissues to the level of the tensor fascia maeve and gluteus jeana fascia. Full-thickness skin flaps were elevated both anteriorly and posteriorly. The leg was placed in slight abduction and the tensor fascia maeve was then divided in line with the skin incision. The gluteus jeana was divided by digital distraction. The sciatic nerve was identified and protected throughout the remainder of the case. The leg was placed in internal rotation and the short external rotators were elevated from the posterior lateral aspect of the femur and reflected posteriorly with the sciatic nerve protected throughout the remainder of the case. This revealed a displaced femoral neck fracture. Cobra retractors were placed around vital neurovascular structures. To protect the structures as well, a femoral neck cut was performed. The head was then removed from the acetabulum and measured on the back table. Sequential broaching was undertaken until an appropriate size broach was contained within the femur. A trial neck and head were affixed to the broach and the hip was reduced and placed through motion and found to be stable. Intraoperative x-rays confirmed re-establishment of the patient's limb length. The trial components were removed. The wound was copiously irrigated. A size 14 ingrowth uncemented femoral stem was then inserted, taking care to provide the patient appropriate amount of anteversion. Once the stem was seated, the head was affixed to the stem and the hip was reduced and again placed through range of motion and found to be quite stable. This wound was again copiously irrigated with bacitracin laden saline. The capsule was repaired with nonabsorbable suture. The remaining soft tissues were closed in a multilayer fashion. Sterile dressings were applied and an abduction pillow was placed between the patient's legs. The patient was then awakened and taken to postanesthesia care unit in stable condition. MD VANNESSA Ybarra/GIFTY /[id number]
[2019-10-31] MEDS: MORPHINE SULFATE INJ 4 MG/ML INJ 1ML IV PRN ×2 (10:42→20:35)
--- NOTE | 2019-10-31 11:20 | NUR ---
DR. Chitra ZUÑIGA HERE TO SEE PT.
--- NOTE | 2019-10-31 11:45 | NUR ---
PT UP IN LIZ WITH PT, TOLERATING WELL.
[2019-10-31] MEDS: RIVAROXABAN 10 MG TABLET PO SCH (16:27)
--- NOTE | 2019-10-31 19:00 | NUR ---
RECEIVED PATIENT IN BEDSIDE SHIFT REPORT. PATIENT RESTING IN BED AT THIS TIME. MODERATE PAIN REPORTED, WANTS PAIN MEDICATION BEFORE GOING TO SLEEP. DRESSING TO R HIP C/D/I. NO S&S OF DISTRESS NOTED. BED LOCKED IN LOWEST POSITION, SIDE RAILS UPX2, CALL LIGHT IN REACH.
--- NOTE | 2019-10-31 19:26 | NUR ---
REPORT GIVEN TO ONCOMING NURSE, WALKING ROUNDS COMPLETE.
[2019-10-31] MEDS: ATORVASTATIN 20 MG TAB PO SCH (20:33)
[2019-10-31] MEDS ORDERED: ONDANSETRON HCL 4 MG ORAL DISINTEGRATING TAB PO PRN (20:45)
[2019-11-01] VITALS: BP 103/44
[2019-11-01 04:00] VITALS: BP 98/55
[2019-11-01] MEDS: MORPHINE SULFATE INJ 4 MG/ML INJ 1ML IV PRN ×2 (05:00→13:04)
--- NOTE | 2019-11-01 07:00 | NUR ---
RECEIVED PATIENT RESTING IN BED NO S/S OF DISTRESS. BED LOW, WHEELS LOCKED, SIDE RAILS X2. CALL LIGHT IN REACH WILL CONTINUE TO MONITOR PATIENT.
[2019-11-01] MEDS: INSULIN REGULAR, HUMAN 100 UNIT/1 ML 3ML VIAL SQ SCH ×2 (07:30→11:30)
[2019-11-01 09:00] VITALS: BP 97/58
[2019-11-01] MEDS: GABAPENTIN 100 MG CAP PO SCH (09:06)
[2019-11-01] MEDS: AMIODARONE HCL 200 MG TAB PO SCH (09:06)
[2019-11-01] MEDS: SPIRONOLACTONE 25 MG TAB PO SCH (09:06)
[2019-11-01 09:56] VITALS: BP 97/58
[2019-11-01] MEDS: HYDROCODONE/APAP 5MG-325MG TAB PO PRN (11:42)
--- NOTE | 2019-11-01 12:26 | NUR ---
REC'D MOT FOR PT AT [facility] FROM JAYLEEN MARTIN [id number] FELA PERSON ACCEPTING ADMIN MESSI COTA CALL REPORT TO [phone] COVID FORM AND MOT COMPLETE AND IN PACKET NOTIFIED NURSE ALEX OF ABOVE CALL PLACED TO DR BALDWIN FOR DISCHARGE ORDERS
[2019-11-01 13:06] VITALS: BP 110/50
--- NOTE | 2019-11-01 13:40 | NUR ---
REPORT CALLED TO JORI OLIVARES AT [facility]. SUMMARY OF CARE PROVIDED.
--- NOTE | 2019-11-01 14:37 | NUR ---
PATIENT DISCHARGED FROM FACILITY. PATIENT GATHERED ALL PERSONAL BELONGINGS. PATIENT TRANSFERRED TO [facility] VIA [facility] WITH EMS. NO S/S OF DISTRESS LEAVING FACILITY.
== END 2019-11-01 14:37 | disposition home or self-care (01) | DRG 470 ==
LOC: ER 17:20 → ERHOLD 18:17 → MED/SURG2 21:24 → MED/SURG 10-29 12:28 → OBSVTOIN 10-29 14:14
PROC: 0SRR0JA Replacement of Right Hip Joint, Femoral Surface with Synthetic Substitute, Uncemented, Open Approach (ICD-10-PCS; principal; 2019-10-29 08:00)
DX: S72.001A Fracture of unspecified part of neck of right femur, initial encounter for closed fracture (principal); I50.32 Chronic diastolic (congestive) heart failure; E11.9 Type 2 diabetes mellitus without complications; I25.10 Atherosclerotic heart disease of native coronary artery without angina pectoris; Z09 Encounter for follow-up examination after completed treatment for conditions other than malignant neoplasm; N18.3 Chronic kidney disease, stage 3 (moderate); Z87.440 Personal history of urinary (tract) infections; Z46.81 Encounter for fitting and adjustment of insulin pump; Z85.038 Personal history of other malignant neoplasm of large intestine; Z95.1 Presence of aortocoronary bypass graft; Z95.810 Presence of automatic (implantable) cardiac defibrillator; Z95.5 Presence of coronary angioplasty implant and graft; D64.9 Anemia, unspecified
CPT/HCPCS: 36415; 72170; 80048; 80053; 80061; 81001; 82550; 82553; 82948; 83880; 84484; 85014; 85018; 85025; 86850; 86900; 87086; 93005; 93306; 96361; 96372; 97139; 99284; G0378; J0330; J0690; J1100; J1650; J1817; J2001; J2250; J2270; J2405; J3010; J7030; J7799; U0002

== ENCOUNTER 2020-01-20 14:48 | Inpatient (IN) | payer BC ==
[~2020-01-20] VITALS: Ht 165.1 cm; Wt 70.3 kg
[~2020-01-20 14:48] MED LIST: AMIODARONE HCL200 MG PO; ASPIRIN EC81 MG PO; ATORVASTATIN CA20 MG PO; BUMETANIDE2 MG PO; GABAPENTIN100 MG; MAGNESIUM OXID400 MG PO; MIDODRINE HCL5 MG PO; NOVOLOG100 UNIT/1 SC; PROTONIX20 MG PO; SPIRONOLACTONE25 MG PO; VITAMIN B-121000 MCG PO
[2020-01-20] MEDS ORDERED: HYDROCODONE/APAP 10MG-325MG TAB PO NR (15:30)
[2020-01-20] MEDS ORDERED: CEFEPIME 1GM/NS 0.9% 50 ML 50 ML IV STA (18:00)
[2020-01-20 18:08] LABS: BASOPHILS # (AUTO) 0.1 (0.0-0.1); BASOPHILS % 0.4 % (0.0-1.0); EOSINOPHILS % 0.1 % (0.0-6.0); HEMATOCRIT 33.1 % (34.2-44.1); HEMOGLOBIN 11.1 g/dL (12.0-16.0); LYMPHOCYTES # (AUTO) 0.5 (1.0-3.2); LYMPHOCYTES % 3.4 % (18.0-39.1); MEAN CORPUSCULAR HEMOGLOBIN 28.7 pg (28-32); MEAN CORPUSCULAR HGB CONC 33.5 g/dL (31-35); MEAN CORPUSCULAR VOLUME 85.5 fL (81-99); MONOCYTES # (AUTO) 0.4 (0.2-0.8); MONOCYTES % 2.4 % (4.4-11.3); NEUTROPHILS # (AUTO) 14.1 (2.1-6.9); NEUTROPHILS % 87.9 % (38.7-80.0); PLATELET COUNT 200 x10e3/uL (140-360); RED BLOOD COUNT 3.87 x10e6/uL (3.6-5.1); RED CELL DISTRIBUTION WIDTH 14.8 % (11.7-14.4)
[2020-01-20 18:29] LABS: ALBUMIN 2.7 g/dL (3.5-5.0); ALBUMIN/GLOBULIN RATIO 0.6 (0.8-2.0); ANION GAP 17.6 mmol/L (8-16); CALCIUM 8.7 mg/dL (8.4-10.2); CREATININE, SERUM 1.14 mg/dL (0.57-1.11); POTASSIUM 4.6 mmol/L (3.5-5.1)
[2020-01-20 18:30] LABS: CLARITY,URINE CLEAR (CLEAR); COLOR,URINE YELLOW (YELLOW); LEUKOCYTE ESTERASE ,URINE NEGATIVE (NEGATIVE); NITRITE,URINE NEGATIVE (NEGATIVE)
[2020-01-20 18:31] LABS: BILIRUBIN,URINE 1+ (NEGATIVE); KETONES,URINE 1+ (NEGATIVE); PROTEIN,URINE DIPSTICK 1+ (NEGATIVE); URINE UROBILINOGEN 0.2 mg/dL (0.2 - 1)
[2020-01-20] MEDS ORDERED: VANCOMYCIN 1GM/NS 250 ML 250 ML IV STA (18:33)
[2020-01-20 18:48] LABS: BACTERIA,URINE FEW /HPF; EPITHELIAL CELLS,URINE FEW /LPF; RENAL EPITHELIAL CELLS,URINE FEW; TRANSITIONAL EPI CELLS,URINE MANY; WBC,URINE (MAN) 21-50 /HPF (0-5)
[2020-01-20 18:52] LABS: ERYTHROCYTE SEDIMENTATION RATE 70 mm/hr (0-20)
[2020-01-20] MEDS ORDERED: SODIUM CHLORIDE 0.9% 1000ML 1,000 ML IV STA ×2 (19:26)
[2020-01-20 21:41] LABS: BODY FLUID APPEARANCE SL.CLOUDY; BODY FLUID COLOR STRAW
[2020-01-20 21:43] LABS: RBC,BODY FLUID 1699 cells/uL; WBC,BODY FLUID 0 cells/uL
[2020-01-20 21:44] LABS: BODY FLUID TYPE SYNOVIAL
[2020-01-20 22:45] VITALS: BP 122/58
[2020-01-21] VITALS (15 sets, daily range): BP systolic 91–128; BP diastolic 33–74
[2020-01-21] MEDS ORDERED: POLYETHYLENE GLYCOL 3350 17 GM PACK PO PRN (00:45)
[2020-01-21] MEDS ORDERED: HYDRALAZINE HCL 20 MG/ML VIAL IV PRN (00:45)
[2020-01-21] MEDS ORDERED: TEMAZEPAM 7.5 MG CAP PO PRN (00:45)
[2020-01-21] MEDS ORDERED: ONDANSETRON HCL INJ 2MG/ML 2ML 2 MG/ML VIAL IV PRN (00:45)
[2020-01-21] MEDS: SODIUM CHLORIDE 0.9% 1000ML 1,000 ML IV SCH ×3 (01:38→20:49)
[2020-01-21] MEDS: HYDROCODONE/APAP 10MG-325MG TAB PO PRN (04:50)
[2020-01-21 06:42] LABS: BASOPHILS # (AUTO) 0.2 (0.0-0.1); BASOPHILS % 0.9 % (0.0-1.0); HEMATOCRIT 32.3 % (34.2-44.1); HEMOGLOBIN 10.9 g/dL (12.0-16.0); LYMPHOCYTES # (AUTO) 0.8 (1.0-3.2); LYMPHOCYTES % 3.5 % (18.0-39.1); MEAN CORPUSCULAR HEMOGLOBIN 29.2 pg (28-32); MEAN CORPUSCULAR HGB CONC 33.7 g/dL (31-35); MEAN CORPUSCULAR VOLUME 86.6 fL (81-99); MONOCYTES # (AUTO) 0.9 (0.2-0.8); MONOCYTES % 4.2 % (4.4-11.3); NEUTROPHILS # (AUTO) 17.9 (2.1-6.9); NEUTROPHILS % 82.8 % (38.7-80.0); PLATELET COUNT 171 x10e3/uL (140-360); RED BLOOD COUNT 3.73 x10e6/uL (3.6-5.1); RED CELL DISTRIBUTION WIDTH 15.1 % (11.7-14.4)
[2020-01-21] MEDS ORDERED: PIPER-TAZ 3.375 GM 50 ML IV ONE (07:00)
[2020-01-21 07:02] LABS: ALBUMIN 2.3 g/dL (3.5-5.0); ALBUMIN/GLOBULIN RATIO 0.6 (0.8-2.0); ANION GAP 19.7 mmol/L (8-16); CALCIUM 8.3 mg/dL (8.4-10.2); CREATININE, SERUM 1.1 mg/dL (0.57-1.11); POTASSIUM 4.7 mmol/L (3.5-5.1)
[2020-01-21 07:11] LABS: B-TYPE NATRIURETIC PEPTIDE2 1921.6 pg/mL (0-100)
[2020-01-21 07:30] LABS: CHOL/HDL RATIO 11.7 (3.0-3.6); PHOSPHORUS 2.9 MG/DL (2.3-4.7)
[2020-01-21 07:53] LABS: FREE THYROXINE INDEX 1.4681 (1.4-3.8); THYROID STIMULATING HORMONE 5.102 uIU/mL (0.350-4.940)
[2020-01-21] MEDS: DOCUSATE SODIUM 100 MG CAP PO SCH ×2 (08:37→16:21)
[2020-01-21] MEDS ORDERED: FAMOTIDINE 20 MG/2 ML VIAL IV SCH (09:00)
[2020-01-21] MEDS ORDERED: LACTULOSE SYRUP 20 GM/30 ML UDC PO PRN (11:00)
[2020-01-21] MEDS ORDERED: LEVOTHYROXINE SODIUM 100 MCG/VIAL IV NR (11:00)
[2020-01-21] MEDS: AMIODARONE HCL 200 MG TAB PO SCH (11:15)
[2020-01-21 15:02] LABS: ABG HCO3 16 mmol/L (22-26); ABG PCO2 26 mmHg (35-45); ABG PO2 54 mmHg (80-105)
[2020-01-21 15:03] LABS: ABG TCO2 17
[2020-01-21] MEDS ORDERED: DEXTROSE 50% SYRINGE 50 ML IV PRN (15:45)
[2020-01-21] MEDS: GABAPENTIN 100 MG CAP PO SCH ×2 (16:20→20:50)
[2020-01-21] MEDS ORDERED: CEFEPIME 1GM/NS 0.9% 50 ML 50 ML IV SCH (17:00)
[2020-01-21] MEDS: INSULIN REGULAR, HUMAN 3ML VL 100 UNIT in SODIUM CHLORIDE 0.9% 100 ML 99 ML IV SCH ×4 (17:14→19:45)
[2020-01-21 17:20] LABS: FREE T4 (FREE THYROXINE) 0.98 ng/dL (0.8-1.8); THYROID STIMULATING HORMONE 4.901 uIU/mL (0.350-4.940)
[2020-01-21] MEDS ORDERED: VANCOMYCIN 1GM/NS 250 ML 250 ML IV SCH (20:00)
[2020-01-21] MEDS: ATORVASTATIN 20 MG TAB PO SCH (20:50)
[2020-01-21] MEDS ORDERED: SODIUM CHLORIDE 0.9% 50ML 50 ML ONE (23:29)
[2020-01-21] MEDS ORDERED: IOPAMIDOL 370 MG/ML 200 ML INFUS..BTL INJ ONE (23:30)
[2020-01-22] VITALS (25 sets, daily range): BP systolic 90–119; BP diastolic 35–75
[2020-01-22] MEDS: INSULIN REGULAR, HUMAN 3ML VL 100 UNIT in SODIUM CHLORIDE 0.9% 100 ML 99 ML IV SCH ×4 (01:33→06:25)
[2020-01-22 05:35] LABS: ALANINE AMINOTRANSFERASE 69 IU/L (0-55); ALBUMIN 2.2 g/dL (3.5-5.0); ALBUMIN/GLOBULIN RATIO 0.6 (0.8-2.0); ALKALINE PHOSPHATASE 629 IU/L (40-150); ANION GAP 13.1 mmol/L (8-16); BLOOD UREA NITROGEN 39 mg/dL (7-26); BUN/CREATININE RATIO 42 (6-25); CARBON DIOXIDE 20 mmol/L (22-29); CHLORIDE 98 mmol/L (98-107); CREATININE, SERUM 0.92 mg/dL (0.57-1.11); EST GLOMERULAR FILTRATION RATE > 60 ML/MIN (60-); GLUCOSE 66 mg/dL (74-118); PHOSPHORUS 2.5 MG/DL (2.3-4.7); POTASSIUM 4.1 mmol/L (3.5-5.1); SODIUM 127 mmol/L (136-145)
[2020-01-22] MEDS: LEVOTHYROXINE SODIUM 50 MCG TAB PO SCH (06:24)
[2020-01-22 06:46] LABS: BASOPHILS # (AUTO) 0.1 (0.0-0.1); BASOPHILS % 0.7 % (0.0-1.0); EOSINOPHILS % 0.2 % (0.0-6.0); HEMATOCRIT 28.6 % (34.2-44.1); HEMOGLOBIN 9.9 g/dL (12.0-16.0); LYMPHOCYTES # (AUTO) 1.1 (1.0-3.2); LYMPHOCYTES % 4.9 % (18.0-39.1); MEAN CORPUSCULAR HEMOGLOBIN 29.3 pg (28-32); MEAN CORPUSCULAR HGB CONC 34.6 g/dL (31-35); MEAN CORPUSCULAR VOLUME 84.6 fL (81-99); MONOCYTES # (AUTO) 1.2 (0.2-0.8); MONOCYTES % 5.5 % (4.4-11.3); NEUTROPHILS # (AUTO) 17.3 (2.1-6.9); NEUTROPHILS % 80.4 % (38.7-80.0); PLATELET COUNT 103 x10e3/uL (140-360); RED BLOOD COUNT 3.38 x10e6/uL (3.6-5.1); RED CELL DISTRIBUTION WIDTH 15.3 % (11.7-14.4)
[2020-01-22 07:02] LABS: FERRITIN 4287.66 ng/mL (4.63-204.00)
[2020-01-22] MEDS: SODIUM CHLORIDE 0.9% 1000ML 1,000 ML IV SCH ×2 (07:38→17:28)
[2020-01-22] MEDS: PANTOPRAZOLE SOD 40 MG TABEC PO SCH (07:38)
[2020-01-22] MEDS: ASPIRIN 81 MG ENTERIC COATED PO SCH (07:39)
[2020-01-22] MEDS: AMIODARONE HCL 200 MG TAB PO SCH (07:39)
[2020-01-22] MEDS: DOCUSATE SODIUM 100 MG CAP PO SCH ×2 (07:39→17:43)
[2020-01-22] MEDS: GABAPENTIN 100 MG CAP PO SCH ×3 (07:39→21:37)
[2020-01-22] MEDS: CYANOCOBALAMIN 1,000 MCG TAB PO SCH (07:49)
[2020-01-22] MEDS: SPIRONOLACTONE 25 MG TAB PO SCH (07:49)
[2020-01-22 08:36] LABS: LYMPHOCYTES % (MANUAL) 3 % (19-48); MONOCYTES % (MANUAL) 8 % (3.4-9.0); MYELOCYTES % (MANUAL) 6 % (0-0); NEUTROPHILS % (MANUAL) 83 % (40-74)
[2020-01-22 08:37] LABS: PLATELET ESTIMATE SLIGHTLY DECREASED
[2020-01-22 08:38] LABS: ANISOCYTOSIS SLIGHT; PLATELET MORPHOLOGY COMMENT FEW LARGE; RBC MORPHOLOGY COMMENT NORMAL
[2020-01-22 08:39] LABS: GIANT PLATELETS FEW
[2020-01-22] MEDS: HYDROCODONE/APAP 10MG-325MG TAB PO PRN (09:42)
[2020-01-22] MEDS ORDERED: LIDOCAINE VISC 2% SOLN 15 ML UDC PO PRN ×2 (18:30→19:15)
[2020-01-22] MEDS ORDERED: BENZOCAINE 0.18 OZ ORAL GEL TOP PRN (19:15)
[2020-01-22] MEDS ORDERED: VANCOMYCIN 1GM/NS 250 ML 250 ML IV SCH (20:00)
[2020-01-22] MEDS ORDERED: DIATRIZOATE MEGL/DIATRIZOA SOD 30 ML BTL PO ONE (21:02)
[2020-01-22] MEDS: ATORVASTATIN 20 MG TAB PO SCH (21:33)
[2020-01-23] VITALS (24 sets, daily range): BP systolic 89–112; BP diastolic 36–84
[2020-01-23] MEDS ORDERED: IOPAMIDOL 370 MG/ML 200 ML INFUS..BTL INJ ONE (03:39)
[2020-01-23] MEDS ORDERED: SODIUM CHLORIDE 0.9% 50ML 50 ML ONE (03:39)
[2020-01-23] MEDS: SODIUM CHLORIDE 0.9% 1000ML 1,000 ML IV SCH (03:50)
[2020-01-23 05:58] LABS: BASOPHILS # (AUTO) 0.2 (0.0-0.1); BASOPHILS % 0.6 % (0.0-1.0); EOSINOPHILS % 0.1 % (0.0-6.0); HEMATOCRIT 27.2 % (34.2-44.1); HEMOGLOBIN 9.2 g/dL (12.0-16.0); LYMPHOCYTES # (AUTO) 1.2 (1.0-3.2); LYMPHOCYTES % 4.1 % (18.0-39.1); MEAN CORPUSCULAR HEMOGLOBIN 28.7 pg (28-32); MEAN CORPUSCULAR HGB CONC 33.8 g/dL (31-35); MEAN CORPUSCULAR VOLUME 84.7 fL (81-99); MONOCYTES # (AUTO) 1.6 (0.2-0.8); MONOCYTES % 5.2 % (4.4-11.3); NEUTROPHILS # (AUTO) 23.9 (2.1-6.9); NEUTROPHILS % 79.7 % (38.7-80.0); RED BLOOD COUNT 3.21 x10e6/uL (3.6-5.1)
[2020-01-23 06:08] LABS: PLATELET COUNT 66 x10e3/uL (140-360)
[2020-01-23 06:15] LABS: ALBUMIN/GLOBULIN RATIO 0.6 (0.8-2.0); ANION GAP 15.7 mmol/L (8-16); CALCIUM 7.7 mg/dL (8.4-10.2); CREATININE, SERUM 1.84 mg/dL (0.57-1.11); POTASSIUM 4.7 mmol/L (3.5-5.1)
[2020-01-23] MEDS: LEVOTHYROXINE SODIUM 50 MCG TAB PO SCH (06:15)
[2020-01-23] MEDS: PANTOPRAZOLE SOD 40 MG TABEC PO SCH (08:48)
[2020-01-23] MEDS: ASPIRIN 81 MG ENTERIC COATED PO SCH (09:00)
[2020-01-23] MEDS: CYANOCOBALAMIN 1,000 MCG TAB PO SCH (09:00)
[2020-01-23] MEDS: GABAPENTIN 100 MG CAP PO SCH ×3 (09:11→20:31)
[2020-01-23] MEDS: SPIRONOLACTONE 25 MG TAB PO SCH (09:11)
[2020-01-23] MEDS: DOCUSATE SODIUM 100 MG CAP PO SCH ×2 (09:11→15:22)
[2020-01-23] MEDS ORDERED: LINEZOLID 600 MG/D5W 300ML 300 ML IV SCH ×2 (09:15→10:00)
[2020-01-23] MEDS ORDERED: DAPTOMYCIN 500mg 10ML 450 MG in SODIUM CHLORIDE 0.9% 100 ML IV SCH (10:15)
[2020-01-23 10:22] LABS: LYMPHOCYTES % (MANUAL) 3 % (19-48); MONOCYTES % (MANUAL) 2 % (3.4-9.0); MYELOCYTES % (MANUAL) 3 % (0-0); NEUTROPHILS % (MANUAL) 92 % (40-74)
[2020-01-23 10:26] LABS: GIANT PLATELETS RARE; PLATELET ESTIMATE MODERATELY DECREASED; PLATELET MORPHOLOGY COMMENT FEW LARGE; RBC MORPHOLOGY COMMENT NORMAL
[2020-01-23] MEDS: INSULIN REGULAR, HUMAN 3ML VL 100 UNIT in SODIUM CHLORIDE 0.9% 100 ML 99 ML IV SCH ×2 (10:29)
[2020-01-23 10:32] LABS: INR 1.28; PROTHROMBIN TIME 16.6 seconds (11.9-14.5)
[2020-01-23] MEDS: DAPTOMYCIN 500mg 10ML 450 MG in SODIUM CHLORIDE 0.9% 100 ML IV SCH (11:08)
[2020-01-23] MEDS ORDERED: SODIUM CHLORIDE 0.9% 250ML 250 ML IV NR (13:15)
[2020-01-23] MEDS ORDERED: VANCOMYCIN 1GM/NS 250 ML 250 ML IV ONE (13:30)
[2020-01-23] MEDS ORDERED: FUROSEMIDE INJ 10 MG/ML 4 ML VIAL IV NR (14:15)
[2020-01-23] MEDS ORDERED: SODIUM CHLORIDE 0.9% 1000ML 1,000 ML IV ONE (14:15)
[2020-01-23] MEDS ORDERED: ALTEPLASE RECOMBINANT 2 MG/2 ML VIAL IV PRN (15:15)
[2020-01-23] MEDS: ACETAMINOPHEN 325 MG TAB PO PRN (20:31)
[2020-01-23] MEDS: METOLAZONE 5 MG TAB PO SCH (20:31)
[2020-01-23] MEDS ORDERED: FUROSEMIDE INJ 10 MG/ML 10 ML VIAL IV ONE (21:30)
[2020-01-24] VITALS (22 sets, daily range): BP systolic 81–141; BP diastolic 41–64
[2020-01-24] MEDS: SODIUM CHLORIDE 0.9% 1000ML 1,000 ML IV SCH ×2 (00:04→10:00)
[2020-01-24 04:00] LABS: BASOPHILS # (AUTO) 0.2 (0.0-0.1); BASOPHILS % 0.5 % (0.0-1.0); EOSINOPHILS # (AUTO) 0.1 (0.0-0.4); EOSINOPHILS % 0.1 % (0.0-6.0); HEMATOCRIT 25.1 % (34.2-44.1); HEMOGLOBIN 8.9 g/dL (12.0-16.0); LYMPHOCYTES # (AUTO) 1.2 (1.0-3.2); LYMPHOCYTES % 3.5 % (18.0-39.1); MEAN CORPUSCULAR HEMOGLOBIN 29.5 pg (28-32); MEAN CORPUSCULAR HGB CONC 35.5 g/dL (31-35); MEAN CORPUSCULAR VOLUME 83.1 fL (81-99); MONOCYTES # (AUTO) 1.3 (0.2-0.8); MONOCYTES % 3.8 % (4.4-11.3); NEUTROPHILS # (AUTO) 27.8 (2.1-6.9); NEUTROPHILS % 81.7 % (38.7-80.0); RED BLOOD COUNT 3.02 x10e6/uL (3.6-5.1); RED CELL DISTRIBUTION WIDTH 16.7 % (11.7-14.4)
[2020-01-24 04:07] LABS: PLATELET COUNT 43 x10e3/uL (140-360)
[2020-01-24 04:23] LABS: ALBUMIN 1.8 g/dL (3.5-5.0); ALBUMIN/GLOBULIN RATIO 0.5 (0.8-2.0); CALCIUM 7.7 mg/dL (8.4-10.2)
[2020-01-24] MEDS: LEVOTHYROXINE SODIUM 50 MCG TAB PO SCH ×3 (06:00→06:45)
[2020-01-24 06:27] LABS: INR 1.35; PROTHROMBIN TIME 17.4 seconds (11.9-14.5)
[2020-01-24] MEDS ORDERED: VANCOMYCIN HCL 500 MG ONE (06:36)
[2020-01-24] MEDS ORDERED: SODIUM CHLORIDE 0.9% 500ML 500 ML ONE (06:37)
[2020-01-24] MEDS ORDERED: HEPARIN SOD/SOD CHLORIDE 1,000 ML ONE (06:45)
[2020-01-24] MEDS ORDERED: VANCOMYCIN HCL 1 GM VIAL ONE (07:00)
[2020-01-24] MEDS ORDERED: TOBRAMYCIN 1.2GM BULK BOTTLE ONE (07:00)
[2020-01-24] MEDS: PANTOPRAZOLE SOD 40 MG TABEC PO SCH (07:30)
[2020-01-24] MEDS ORDERED: NOREPINEPHRINE INJ 4MG/4ML 4 ML ONE (08:24)
[2020-01-24] MEDS ORDERED: SODIUM CHLORIDE 0.9% 100 ML ONE (08:25)
[2020-01-24 08:54] LABS: BAND NEUTROPHILS % (MANUAL) 5 %; LYMPHOCYTES % (MANUAL) 3 % (19-48); METAMYELOCYTES % (MANUAL) 2 % (0-0); MONOCYTES % (MANUAL) 5 % (3.4-9.0); MYELOCYTES % (MANUAL) 1 % (0-0); NEUTROPHILS % (MANUAL) 84 % (40-74); RBC MORPHOLOGY COMMENT NORMAL
[2020-01-24 08:55] LABS: PLATELET ESTIMATE MARKEDLY DECREASED; PLATELET MORPHOLOGY COMMENT FEW LARGE
[2020-01-24] MEDS: METOLAZONE 5 MG TAB PO SCH (09:00)
[2020-01-24] MEDS: CYANOCOBALAMIN 1,000 MCG TAB PO SCH (09:00)
[2020-01-24] MEDS: DOCUSATE SODIUM 100 MG CAP PO SCH ×2 (09:00→15:26)
[2020-01-24] MEDS: GABAPENTIN 100 MG CAP PO SCH ×3 (09:00→20:25)
[2020-01-24] MEDS: ASPIRIN 81 MG ENTERIC COATED PO SCH (09:00)
[2020-01-24] MEDS ORDERED: ONDANSETRON HCL INJ 2MG/ML 2ML 2 MG/ML VIAL IV PRN (10:15)
[2020-01-24] MEDS ORDERED: NALOXONE HCL INJ 0.4 MG/ML AMP IV PRN (10:15)
[2020-01-24] MEDS ORDERED: SODIUM CHLORIDE 0.9% 1000ML 1,000 ML IV SCH (10:15)
[2020-01-24] MEDS ORDERED: HYDROMORPHONE 0.2MG/ML-SOD CHL 30ML PCA SYRINGE IV PRN (10:15)
[2020-01-24 10:54] LABS: BASOPHILS # (AUTO) 0.3 (0.0-0.1); BASOPHILS % 0.7 % (0.0-1.0); EOSINOPHILS % 0.1 % (0.0-6.0); HEMATOCRIT 27.2 % (34.2-44.1); LYMPHOCYTES # (AUTO) 2.2 (1.0-3.2); LYMPHOCYTES % 5.6 % (18.0-39.1); MEAN CORPUSCULAR HEMOGLOBIN 29.3 pg (28-32); MEAN CORPUSCULAR HGB CONC 33.1 g/dL (31-35); MEAN CORPUSCULAR VOLUME 88.6 fL (81-99); MONOCYTES # (AUTO) 1.3 (0.2-0.8); MONOCYTES % 3.4 % (4.4-11.3); NEUTROPHILS # (AUTO) 27.8 (2.1-6.9); NEUTROPHILS % 72.1 % (38.7-80.0); PLATELET COUNT 83 x10e3/uL (140-360); RED BLOOD COUNT 3.07 x10e6/uL (3.6-5.1); RED CELL DISTRIBUTION WIDTH 15.7 % (11.7-14.4)
[2020-01-24] MEDS ORDERED: SODIUM BICARBONATE 8.4% SYRING 100 ML ONE (11:04)
[2020-01-24 11:13] LABS: ABG PCO2 48 mmHg (35-45); ABG PH 6.98 (7.35-7.45); ABG PO2 120 mmHg (80-105)
[2020-01-24 11:14] LABS: ABG HCO3 11 mmol/L (22-26); ABG TCO2 13
[2020-01-24 11:16] LABS: INR 1.44; PROTHROMBIN TIME 18.3 seconds (11.9-14.5)
[2020-01-24 11:17] LABS: PARTIAL THROMBOPLASTIN TIME 34.7 seconds (23.8-35.5)
[2020-01-24] MEDS ORDERED: FENTANYL 2000MCG/NS 250 250 ML IV PRN (11:30)
[2020-01-24] MEDS: NOREPINEPHRINE 8 MG/D5W 250 ML 250 ML IV SCH (11:59)
[2020-01-24] MEDS ORDERED: SODIUM BICARBONATE IV SCH (12:00)
[2020-01-24] MEDS ORDERED: SOD CHL IV SCH (12:00)
[2020-01-24] MEDS ORDERED: DEXTROSE IV SCH (12:00)
[2020-01-24] MEDS ORDERED: SODIUM CHLORIDE 0.9% 1000ML 2,000 ML IV PRN (12:15)
[2020-01-24] MEDS ORDERED: ALBUMIN 25% 12.5GM 0.25 GM/ML BTL IV PRN (12:15)
[2020-01-24] MEDS ORDERED: HEPARIN SOD (PORCINE) 1000 UNIT/ML SDV IV PRN (12:15)
[2020-01-24] MEDS ORDERED: ETOMIDATE 2 MG/ML 10 ML INJ IV ONE (12:26)
[2020-01-24] MEDS ORDERED: ROCURONIUM BROMIDE 10 MG/ML 5ML VIAL IV ONE (12:26)
[2020-01-24] MEDS ORDERED: VASOPRESSIN INJ 20 UNIT/ML VIAL ONE (12:26)
[2020-01-24] MEDS ORDERED: SUCCINYLCHOLINE CHLORIDE 20 MG/ML 10ML VIAL ONE (12:26)
[2020-01-24] MEDS ORDERED: SEVOFLURANE INHAL SOLN 250 ML PEN BTL ONE (12:26)
[2020-01-24] MEDS ORDERED: PHENYLEPHRINE HCL 1% 10 MG/ML VIAL ONE (12:26)
[2020-01-24] MEDS ORDERED: ONDANSETRON HCL INJ 2MG/ML 2ML 2 MG/ML VIAL ONE (12:26)
[2020-01-24] MEDS ORDERED: FENTANYL CITRATE/PF 100MCG/2 ML INJ ONE (12:34)
[2020-01-24] MEDS ORDERED: MIDAZOLAM HCL 2 MG/2 ML VIAL ONE (12:34)
[2020-01-24 12:45] LABS: ABG HCO3 13 mmol/L (22-26); ABG PCO2 28 mmHg (35-45); ABG PH 7.26 (7.35-7.45); ABG PO2 127 mmHg (80-105); ABG TCO2 14
[2020-01-24] MEDS: MIDAZOLAM HCL 5MG/ML 10ML VIAL 100 ML IV PRN (12:52)
[2020-01-24 13:31] LABS: BAND NEUTROPHILS % (MANUAL) 11 %; LYMPHOCYTES % (MANUAL) 5 % (19-48); METAMYELOCYTES % (MANUAL) 4 % (0-0); MONOCYTES % (MANUAL) 5 % (3.4-9.0); MYELOCYTES % (MANUAL) 1 % (0-0); NEUTROPHILS % (MANUAL) 74 % (40-74)
[2020-01-24 13:32] LABS: PLATELET ESTIMATE SLIGHTLY DECREASED; PLATELET MORPHOLOGY COMMENT FEW LARGE; RBC MORPHOLOGY COMMENT NORMAL
[2020-01-24 14:09] LABS: ALBUMIN/GLOBULIN RATIO 0.6 (0.8-2.0); ANION GAP 18.7 mmol/L (8-16); CALCIUM 7.4 mg/dL (8.4-10.2); CREATININE, SERUM 3.08 mg/dL (0.57-1.11); POTASSIUM 5.7 mmol/L (3.5-5.1)
[2020-01-24 17:34] LABS: ABG PCO2 24 mmHg (35-45); ABG PH 7.57 (7.35-7.45); ABG PO2 268 mmHg (80-105); ABG TCO2 22
[2020-01-24 17:35] LABS: ABG HCO3 22 mmol/L (22-26)
[2020-01-24] MEDS: FUROSEMIDE INJ 100 MG in SODIUM CHLORIDE 0.9% 100 ML 90 ML IV SCH (17:50)
[2020-01-24 17:56] LABS: BASOPHILS # (AUTO) 0.1 (0.0-0.1); BASOPHILS % 0.5 % (0.0-1.0); EOSINOPHILS # (AUTO) 0.2 (0.0-0.4); EOSINOPHILS % 0.7 % (0.0-6.0); HEMOGLOBIN 7.1 g/dL (12.0-16.0); LYMPHOCYTES # (AUTO) 0.9 (1.0-3.2); LYMPHOCYTES % 3.2 % (18.0-39.1); MEAN CORPUSCULAR HEMOGLOBIN 29.5 pg (28-32); MEAN CORPUSCULAR HGB CONC 36.6 g/dL (31-35); MEAN CORPUSCULAR VOLUME 80.5 fL (81-99); MONOCYTES # (AUTO) 0.8 (0.2-0.8); MONOCYTES % 2.7 % (4.4-11.3); NEUTROPHILS # (AUTO) 23.8 (2.1-6.9); NEUTROPHILS % 79.7 % (38.7-80.0); PLATELET COUNT 62 x10e3/uL (140-360); RED BLOOD COUNT 2.41 x10e6/uL (3.6-5.1); RED CELL DISTRIBUTION WIDTH 14.7 % (11.7-14.4)
[2020-01-24 18:01] LABS: HEMATOCRIT 19.4 % (34.2-44.1)
[2020-01-24] MEDS ORDERED: SODIUM CHLORIDE 0.9% 250ML 250 ML ONE (18:31)
[2020-01-24] MEDS: INSULIN REGULAR, HUMAN 3ML VL 100 UNIT in SODIUM CHLORIDE 0.9% 100 ML 99 ML IV SCH ×2 (19:30)
[2020-01-25] VITALS (25 sets, daily range): BP systolic 102–130; BP diastolic 35–48
[2020-01-25] MEDS: MIDAZOLAM HCL 5MG/ML 10ML VIAL 100 ML IV PRN (00:10)
[2020-01-25] MEDS: NOREPINEPHRINE 8 MG/D5W 250 ML 250 ML IV SCH ×2 (02:30→20:55)
[2020-01-25 05:05] LABS: BASOPHILS # (AUTO) 0.2 (0.0-0.1); BASOPHILS % 0.7 % (0.0-1.0); EOSINOPHILS # (AUTO) 0.1 (0.0-0.4); EOSINOPHILS % 0.2 % (0.0-6.0); HEMATOCRIT 24.1 % (34.2-44.1); HEMOGLOBIN 8.9 g/dL (12.0-16.0); LYMPHOCYTES % 3.7 % (18.0-39.1); MEAN CORPUSCULAR HEMOGLOBIN 29.1 pg (28-32); MEAN CORPUSCULAR HGB CONC 36.9 g/dL (31-35); MEAN CORPUSCULAR VOLUME 78.8 fL (81-99); MONOCYTES % 3.6 % (4.4-11.3); NEUTROPHILS # (AUTO) 21.4 (2.1-6.9); NEUTROPHILS % 79.4 % (38.7-80.0); PLATELET COUNT 59 x10e3/uL (140-360); RED BLOOD COUNT 3.06 x10e6/uL (3.6-5.1); RED CELL DISTRIBUTION WIDTH 14.6 % (11.7-14.4)
[2020-01-25 05:23] LABS: ALBUMIN 1.7 g/dL (3.5-5.0); ALBUMIN/GLOBULIN RATIO 0.6 (0.8-2.0); ANION GAP 16.6 mmol/L (8-16); CALCIUM 7.1 mg/dL (8.4-10.2); CREATININE, SERUM 2.44 mg/dL (0.57-1.11); POTASSIUM 3.6 mmol/L (3.5-5.1)
[2020-01-25 06:24] LABS: NUCLEATED RED BLOOD CELLS 5
[2020-01-25 06:25] LABS: LYMPHOCYTES % (MANUAL) 2 % (19-48); NEUTROPHILS % (MANUAL) 92 % (40-74)
[2020-01-25 06:26] LABS: MONOCYTES % (MANUAL) 2 % (3.4-9.0); MYELOCYTES % (MANUAL) 4 % (0-0)
[2020-01-25 06:27] LABS: ANISOCYTOSIS SLIGHT; OVALOCYTES X; POIKILOCYTOSIS SLIGHT; RBC MORPHOLOGY COMMENT NORMAL
[2020-01-25 06:29] LABS: PLATELET ESTIMATE MODERATELY DECREASED; PLATELET MORPHOLOGY COMMENT NORMAL
[2020-01-25] MEDS: PANTOPRAZOLE SOD 40 MG TABEC PO SCH (07:30)
[2020-01-25] MEDS: ASPIRIN 81 MG ENTERIC COATED PO SCH (09:00)
[2020-01-25] MEDS: GABAPENTIN 100 MG CAP PO SCH ×3 (09:00→20:37)
[2020-01-25] MEDS: DOCUSATE SODIUM 100 MG CAP PO SCH ×2 (09:00→16:35)
[2020-01-25] MEDS: METOLAZONE 5 MG TAB PO SCH (09:00)
[2020-01-25] MEDS: CYANOCOBALAMIN 1,000 MCG TAB PO SCH (09:00)
[2020-01-25 09:09] LABS: ABG HCO3 26 mmol/L (22-26); ABG PCO2 35 mmHg (35-45); ABG PH 7.48 (7.35-7.45); ABG PO2 125 mmHg (80-105); ABG TCO2 27
[2020-01-25] MEDS: HEPARIN SOD (PORCINE) 5,000 UNIT/ML VIAL SC SCH ×2 (09:37→20:38)
[2020-01-25] MEDS: DAPTOMYCIN 500mg 10ML 450 MG in SODIUM CHLORIDE 0.9% 100 ML IV SCH (11:55)
[2020-01-25] MEDS: FUROSEMIDE INJ 100 MG in SODIUM CHLORIDE 0.9% 100 ML 90 ML IV SCH ×2 (13:32→14:49)
[2020-01-25] MEDS: LINEZOLID 600 MG/D5W 300ML 300 ML IV SCH (16:35)
[2020-01-25] MEDS ORDERED: DEXMEDETOMIDINE 200MCG/NS 50ML 50 ML IV PRN (17:00)
[2020-01-25] MEDS ORDERED: LORAZEPAM INJ 2 MG/ML VIAL IV PRN (17:00)
[2020-01-25 17:06] LABS: ABG HCO3 31 mmol/L (22-26); ABG PCO2 38 mmHg (35-45); ABG PH 7.52 (7.35-7.45); ABG PO2 72 mmHg (80-105); ABG TCO2 33
[2020-01-25] MEDS ORDERED: NOREPINEPHRINE 8 MG/D5W 250 ML 250 ML ONE (20:36)
[2020-01-25] MEDS ORDERED: ACETAMINOPHEN 1000 MG/100 ML 100 ML IV ONE (22:04)
[2020-01-25] MEDS: ACETAMINOPHEN 1000 MG/100 ML IV PRN (23:15)
[2020-01-26] VITALS (26 sets, daily range): BP systolic 96–129; BP diastolic 35–49
[2020-01-26] MEDS: FUROSEMIDE INJ 100 MG in SODIUM CHLORIDE 0.9% 100 ML 90 ML IV SCH ×3 (00:01→19:42)
[2020-01-26] MEDS: INSULIN REGULAR, HUMAN 3ML VL 100 UNIT in SODIUM CHLORIDE 0.9% 100 ML 99 ML IV SCH ×2 (02:23)
[2020-01-26] MEDS: LINEZOLID 600 MG/D5W 300ML 300 ML IV SCH ×2 (03:32→15:42)
[2020-01-26] MEDS: LEVOTHYROXINE SODIUM 50 MCG TAB PO SCH (06:00)
[2020-01-26 06:20] LABS: BASOPHILS # (AUTO) 0.1 (0.0-0.1); BASOPHILS % 0.4 % (0.0-1.0); EOSINOPHILS # (AUTO) 0.1 (0.0-0.4); EOSINOPHILS % 0.4 % (0.0-6.0); HEMATOCRIT 29.1 % (34.2-44.1); HEMOGLOBIN 10.5 g/dL (12.0-16.0); LYMPHOCYTES # (AUTO) 2.1 (1.0-3.2); LYMPHOCYTES % 6.4 % (18.0-39.1); MEAN CORPUSCULAR HGB CONC 36.1 g/dL (31-35); MEAN CORPUSCULAR VOLUME 80.4 fL (81-99); MONOCYTES # (AUTO) 0.9 (0.2-0.8); MONOCYTES % 2.6 % (4.4-11.3); NEUTROPHILS # (AUTO) 25.5 (2.1-6.9); NEUTROPHILS % 78.7 % (38.7-80.0); PLATELET COUNT 72 x10e3/uL (140-360); RED BLOOD COUNT 3.62 x10e6/uL (3.6-5.1); RED CELL DISTRIBUTION WIDTH 15.3 % (11.7-14.4)
[2020-01-26 07:16] LABS: ALBUMIN 1.7 g/dL (3.5-5.0); ALBUMIN/GLOBULIN RATIO 0.5 (0.8-2.0); ANION GAP 18.2 mmol/L (8-16); CALCIUM 7.6 mg/dL (8.4-10.2); CREATININE, SERUM 2.3 mg/dL (0.57-1.11); POTASSIUM 3.2 mmol/L (3.5-5.1)
[2020-01-26] MEDS: PANTOPRAZOLE SOD 40 MG TABEC PO SCH (07:30)
[2020-01-26 07:38] LABS: ABG HCO3 36 mmol/L (22-26); ABG PCO2 42 mmHg (35-45); ABG PH 7.54 (7.35-7.45); ABG PO2 76 mmHg (80-105); ABG TCO2 37
[2020-01-26] MEDS: DOCUSATE SODIUM 100 MG CAP PO SCH ×2 (07:51→15:43)
[2020-01-26] MEDS: ASPIRIN 81 MG ENTERIC COATED PO SCH (07:51)
[2020-01-26] MEDS: METOLAZONE 5 MG TAB PO SCH (08:04)
[2020-01-26] MEDS: GABAPENTIN 100 MG CAP PO SCH ×3 (08:04→20:58)
[2020-01-26] MEDS: CYANOCOBALAMIN 1,000 MCG TAB PO SCH (08:04)
[2020-01-26] MEDS: HEPARIN SOD (PORCINE) 5,000 UNIT/ML VIAL SC SCH ×2 (09:46→21:03)
[2020-01-26] MEDS: ALBUMIN 25% 25GM 100ML 100 ML IV SCH ×3 (10:09→21:03)
[2020-01-26] MEDS ORDERED: ALBUMIN 25% 25GM 100ML 0.25 GM/ML BTL IV SCH (12:00)
[2020-01-26 14:49] LABS: ABG HCO3 40 mmol/L (22-26); ABG PCO2 47 mmHg (35-45); ABG PH 7.54 (7.35-7.45); ABG PO2 85 mmHg (80-105); ABG TCO2 42
[2020-01-26] MEDS: NOREPINEPHRINE 8 MG/D5W 250 ML 250 ML IV SCH (14:56)
[2020-01-26] MEDS ORDERED: POTASSIUM CHLORIDE 20MEQ/100ML 100 ML IV ONE (17:30)
[2020-01-26 19:55] LABS: ABG HCO3 44 mmol/L (22-26); ABG PCO2 47 mmHg (35-45); ABG PH 7.57 (7.35-7.45); ABG PO2 80 mmHg (80-105)
[2020-01-26 19:56] LABS: ABG TCO2 45
[2020-01-27] VITALS (17 sets, daily range): BP systolic 100–114; BP diastolic 32–39
[2020-01-27] MEDS: LINEZOLID 600 MG/D5W 300ML 300 ML IV SCH ×2 (04:09→16:24)
[2020-01-27] MEDS: LEVOTHYROXINE SODIUM 50 MCG TAB PO SCH (04:15)
[2020-01-27] MEDS: FUROSEMIDE INJ 100 MG in SODIUM CHLORIDE 0.9% 100 ML 90 ML IV SCH ×2 (04:15→16:33)
[2020-01-27 05:56] LABS: BASOPHILS # (AUTO) 0.2 (0.0-0.1); BASOPHILS % 0.6 % (0.0-1.0); EOSINOPHILS # (AUTO) 0.1 (0.0-0.4); EOSINOPHILS % 0.3 % (0.0-6.0); HEMATOCRIT 23.8 % (34.2-44.1); HEMOGLOBIN 8.2 g/dL (12.0-16.0); LYMPHOCYTES # (AUTO) 1.6 (1.0-3.2); LYMPHOCYTES % 6.1 % (18.0-39.1); MEAN CORPUSCULAR HEMOGLOBIN 29.1 pg (28-32); MEAN CORPUSCULAR HGB CONC 34.5 g/dL (31-35); MEAN CORPUSCULAR VOLUME 84.4 fL (81-99); MONOCYTES # (AUTO) 0.8 (0.2-0.8); MONOCYTES % 3.1 % (4.4-11.3); NEUTROPHILS # (AUTO) 21.2 (2.1-6.9); NEUTROPHILS % 82.7 % (38.7-80.0); PLATELET COUNT 74 x10e3/uL (140-360); RED BLOOD COUNT 2.82 x10e6/uL (3.6-5.1); RED CELL DISTRIBUTION WIDTH 15.6 % (11.7-14.4)
[2020-01-27 06:34] LABS: ALBUMIN 3.2 g/dL (3.5-5.0); ANION GAP 19.4 mmol/L (8-16); CREATININE, SERUM 2.31 mg/dL (0.57-1.11); POTASSIUM 3.4 mmol/L (3.5-5.1)
[2020-01-27] MEDS: HEPARIN SOD (PORCINE) 5,000 UNIT/ML VIAL SC SCH ×2 (07:42→21:02)
[2020-01-27] MEDS: DAPTOMYCIN 500mg 10ML 450 MG in SODIUM CHLORIDE 0.9% 100 ML IV SCH (11:17)
[2020-01-27] MEDS: ASPIRIN 81 MG ENTERIC COATED PO SCH (11:53)
[2020-01-27] MEDS: CYANOCOBALAMIN 1,000 MCG TAB PO SCH (11:53)
[2020-01-27] MEDS: METOLAZONE 5 MG TAB PO SCH (11:54)
[2020-01-27] MEDS: ACETAZOLAMIDE 250 MG TAB PO SCH ×2 (11:54→21:01)
[2020-01-27] MEDS ORDERED: KCL 20 MEQ PACKET/ ORAL SOLN NG ONE (12:30)
[2020-01-27] MEDS: DOCUSATE SODIUM LIQD 100 MG/10 ML UDC NG SCH (16:24)
[2020-01-27] MEDS ORDERED: BALSAM PERU/CASTOR OIL 60 GM OINT...G. TP PRN (16:30)
[2020-01-28] VITALS (24 sets, daily range): BP systolic 96–119; BP diastolic 35–49
[2020-01-28] MEDS: FUROSEMIDE INJ 100 MG in SODIUM CHLORIDE 0.9% 100 ML 90 ML IV SCH (00:17)
[2020-01-28] MEDS ORDERED: ACETAMINOPHEN 1000 MG/100 ML 100 ML IV ONE (03:47)
[2020-01-28] MEDS: ACETAMINOPHEN 1000 MG/100 ML IV PRN ×2 (03:57→20:56)
[2020-01-28] MEDS: LINEZOLID 600 MG/D5W 300ML 300 ML IV SCH ×2 (03:58→15:15)
[2020-01-28 05:43] LABS: BASOPHILS # (AUTO) 0.1 (0.0-0.1); BASOPHILS % 0.3 % (0.0-1.0); EOSINOPHILS % 0.1 % (0.0-6.0); HEMATOCRIT 25.3 % (34.2-44.1); HEMOGLOBIN 8.3 g/dL (12.0-16.0); LYMPHOCYTES # (AUTO) 0.9 (1.0-3.2); LYMPHOCYTES % 4.6 % (18.0-39.1); MEAN CORPUSCULAR HEMOGLOBIN 29.1 pg (28-32); MEAN CORPUSCULAR HGB CONC 32.8 g/dL (31-35); MEAN CORPUSCULAR VOLUME 88.8 fL (81-99); MONOCYTES # (AUTO) 0.7 (0.2-0.8); MONOCYTES % 3.4 % (4.4-11.3); NEUTROPHILS # (AUTO) 17.9 (2.1-6.9); NEUTROPHILS % 86.8 % (38.7-80.0); PLATELET COUNT 97 x10e3/uL (140-360); RED BLOOD COUNT 2.85 x10e6/uL (3.6-5.1); RED CELL DISTRIBUTION WIDTH 16.2 % (11.7-14.4)
[2020-01-28 05:59] LABS: ANION GAP 19.6 mmol/L (8-16); CALCIUM 8.2 mg/dL (8.4-10.2); CREATININE, SERUM 2.31 mg/dL (0.57-1.11); POTASSIUM 3.6 mmol/L (3.5-5.1)
[2020-01-28 06:19] LABS: ALBUMIN 2.7 g/dL (3.5-5.0); ALBUMIN/GLOBULIN RATIO 0.7 (0.8-2.0)
[2020-01-28 06:48] LABS: MAGNESIUM 1.9 MG/DL (1.3-2.1); PHOSPHORUS 4.7 MG/DL (2.3-4.7)
[2020-01-28] MEDS: DOCUSATE SODIUM LIQD 100 MG/10 ML UDC NG SCH ×2 (07:21→17:00)
[2020-01-28] MEDS: ASPIRIN 81 MG ENTERIC COATED PO SCH (08:28)
[2020-01-28] MEDS: CYANOCOBALAMIN 1,000 MCG TAB PO SCH (08:28)
[2020-01-28] MEDS: ACETAZOLAMIDE 250 MG TAB PO SCH (08:28)
[2020-01-28] MEDS: METOLAZONE 5 MG TAB PO SCH (08:28)
[2020-01-28] MEDS: LEVOTHYROXINE SODIUM 100 MCG/VIAL IV SCH (08:28)
[2020-01-28] MEDS: PANTOPRAZOLE 40 MG 10ML VIAL IV SCH (08:28)
[2020-01-28] MEDS: HEPARIN SOD (PORCINE) 5,000 UNIT/ML VIAL SC SCH ×2 (09:01→20:57)
[2020-01-28] MEDS: NOREPINEPHRINE 8 MG/D5W 250 ML 250 ML IV SCH (11:25)
[2020-01-28 11:31] LABS: ABG PCO2 60 mmHg (35-45); ABG PH 7.49 (7.35-7.45)
[2020-01-28 11:32] LABS: ABG HCO3 45 mmol/L (22-26); ABG PO2 124 mmHg (80-105); ABG TCO2 47
[2020-01-29] VITALS (46 sets, daily range): BP systolic 84–109; BP diastolic 42–67
[2020-01-29] MEDS: INSULIN REGULAR, HUMAN 3ML VL 100 UNIT in SODIUM CHLORIDE 0.9% 100 ML 99 ML IV SCH ×2 (01:15)
[2020-01-29] MEDS: LINEZOLID 600 MG/D5W 300ML 300 ML IV SCH (03:45)
[2020-01-29 05:44] LABS: BASOPHILS # (AUTO) 0.1 (0.0-0.1); BASOPHILS % 0.5 % (0.0-1.0); EOSINOPHILS % 0.2 % (0.0-6.0); HEMATOCRIT 24.7 % (34.2-44.1); LYMPHOCYTES # (AUTO) 0.9 (1.0-3.2); LYMPHOCYTES % 4.9 % (18.0-39.1); MEAN CORPUSCULAR HEMOGLOBIN 28.5 pg (28-32); MEAN CORPUSCULAR HGB CONC 32.4 g/dL (31-35); MEAN CORPUSCULAR VOLUME 87.9 fL (81-99); MONOCYTES # (AUTO) 0.7 (0.2-0.8); MONOCYTES % 3.7 % (4.4-11.3); NEUTROPHILS # (AUTO) 15.4 (2.1-6.9); NEUTROPHILS % 87.2 % (38.7-80.0); PLATELET COUNT 109 x10e3/uL (140-360); RED BLOOD COUNT 2.81 x10e6/uL (3.6-5.1); RED CELL DISTRIBUTION WIDTH 17.2 % (11.7-14.4)
[2020-01-29 06:33] LABS: ALBUMIN 2.4 g/dL (3.5-5.0); ALBUMIN/GLOBULIN RATIO 0.6 (0.8-2.0); ANION GAP 17.4 mmol/L (8-16); CALCIUM 8.4 mg/dL (8.4-10.2); CREATININE, SERUM 1.92 mg/dL (0.57-1.11); POTASSIUM 3.4 mmol/L (3.5-5.1)
[2020-01-29] MEDS: LEVOTHYROXINE SODIUM 100 MCG/VIAL IV SCH (09:17)
[2020-01-29] MEDS: CYANOCOBALAMIN 1,000 MCG TAB PO SCH (09:17)
[2020-01-29] MEDS: DOCUSATE SODIUM LIQD 100 MG/10 ML UDC NG SCH ×2 (09:17→17:32)
[2020-01-29] MEDS: ASPIRIN 81 MG ENTERIC COATED PO SCH (09:17)
[2020-01-29] MEDS: METOLAZONE 5 MG TAB PO SCH (09:17)
[2020-01-29] MEDS: PANTOPRAZOLE 40 MG 10ML VIAL IV SCH (09:17)
[2020-01-29] MEDS: NOREPINEPHRINE 8 MG/D5W 250 ML 250 ML IV SCH (09:19)
[2020-01-29] MEDS: HEPARIN SOD (PORCINE) 5,000 UNIT/ML VIAL SC SCH ×2 (09:19→21:37)
[2020-01-29] MEDS: DAPTOMYCIN 500mg 10ML 450 MG in SODIUM CHLORIDE 0.9% 100 ML IV SCH (10:29)
[2020-01-29] MEDS: ACETAMINOPHEN 325 MG TAB PO PRN (11:31)
[2020-01-29] MEDS ORDERED: CHOLESTYRAMINE 4 GM PACKET PO PRN (12:15)
[2020-01-29] MEDS: VANCOMYCIN 250MG/5ML ORAL SOLN PO SCH ×2 (12:45→18:05)
[2020-01-29] MEDS ORDERED: POTASSIUM BICARBONATE/CIT AC 20 MEQ TABLET.EFF PO NR (14:30)
[2020-01-29] MEDS ORDERED: ACETAZOLAMIDE 250 MG TAB PO SCH (14:30)
[2020-01-29] MEDS: ACETAZOLAMIDE 250 MG TAB PO SCH (14:41)
[2020-01-29] MEDS ORDERED: VANCOMYCIN 250MG/5ML ORAL SOLN ONE (18:05)
[2020-01-29] MEDS ORDERED: INSULIN GLARGINE 100 UNITS/ML VIAL SQ SCH (21:00)
[2020-01-30] VITALS (33 sets, daily range): BP systolic 81–107; BP diastolic 44–65
[2020-01-30] MEDS: VANCOMYCIN 250MG/5ML ORAL SOLN PO SCH ×5 (00:17→23:21)
[2020-01-30] MEDS: ACETAZOLAMIDE 250 MG TAB PO SCH (03:44)
[2020-01-30 05:04] LABS: BASOPHILS # (AUTO) 0.1 (0.0-0.1); BASOPHILS % 0.4 % (0.0-1.0); EOSINOPHILS % 0.2 % (0.0-6.0); HEMATOCRIT 26.1 % (34.2-44.1); HEMOGLOBIN 8.3 g/dL (12.0-16.0); LYMPHOCYTES % 5.9 % (18.0-39.1); MEAN CORPUSCULAR HEMOGLOBIN 28.3 pg (28-32); MEAN CORPUSCULAR HGB CONC 31.8 g/dL (31-35); MEAN CORPUSCULAR VOLUME 89.1 fL (81-99); MONOCYTES # (AUTO) 0.8 (0.2-0.8); MONOCYTES % 4.8 % (4.4-11.3); NEUTROPHILS # (AUTO) 14.5 (2.1-6.9); NEUTROPHILS % 85.9 % (38.7-80.0); PLATELET COUNT 144 x10e3/uL (140-360); RED BLOOD COUNT 2.93 x10e6/uL (3.6-5.1); RED CELL DISTRIBUTION WIDTH 18.7 % (11.7-14.4)
[2020-01-30 05:19] LABS: ALANINE AMINOTRANSFERASE 46 IU/L (0-55); ALBUMIN 2.5 g/dL (3.5-5.0); ALBUMIN/GLOBULIN RATIO -1.5 (0.8-2.0); ALKALINE PHOSPHATASE 593 IU/L (40-150); ANION GAP 17.9 mmol/L (8-16); CALCIUM 9.4 mg/dL (8.4-10.2); CARBON DIOXIDE 39 mmol/L (22-29); CHLORIDE 85 mmol/L (98-107); CREATININE, SERUM 1.52 mg/dL (0.57-1.11); EST GLOMERULAR FILTRATION RATE 35 ML/MIN (60-); GLUCOSE 145 mg/dL (74-118); POTASSIUM 3.9 mmol/L (3.5-5.1); SODIUM 138 mmol/L (136-145)
[2020-01-30 05:25] LABS: BLOOD UREA NITROGEN < 2 mg/dL (7-26); BUN/CREATININE RATIO 1 (6-25)
[2020-01-30] MEDS: PANTOPRAZOLE 40 MG 10ML VIAL IV SCH (08:57)
[2020-01-30] MEDS: CYANOCOBALAMIN 1,000 MCG TAB PO SCH (08:57)
[2020-01-30] MEDS: DOCUSATE SODIUM LIQD 100 MG/10 ML UDC NG SCH ×2 (08:57→16:46)
[2020-01-30] MEDS: LEVOTHYROXINE SODIUM 100 MCG/VIAL IV SCH (08:57)
[2020-01-30] MEDS: ASPIRIN 81 MG ENTERIC COATED PO SCH (08:58)
[2020-01-30] MEDS: HEPARIN SOD (PORCINE) 5,000 UNIT/ML VIAL SC SCH ×2 (08:59→21:26)
[2020-01-30] MEDS: NOREPINEPHRINE 8 MG/D5W 250 ML 250 ML IV SCH (09:17)
[2020-01-30] MEDS: ACETAMINOPHEN 325 MG TAB PO PRN (11:35)
[2020-01-30] MEDS ORDERED: INSULIN GLARGINE 100 UNITS/ML VIAL SQ SCH (21:00)
[2020-01-31] VITALS (9 sets, daily range): BP systolic 87–95; BP diastolic 39–56
[2020-01-31] MEDS: ACETAMINOPHEN 325 MG TAB PO PRN (00:30)
[2020-01-31 04:46] LABS: BASOPHILS # (AUTO) 0.1 (0.0-0.1); BASOPHILS % 0.4 % (0.0-1.0); EOSINOPHILS % 0.2 % (0.0-6.0); HEMATOCRIT 26.3 % (34.2-44.1); HEMOGLOBIN 8.3 g/dL (12.0-16.0); LYMPHOCYTES # (AUTO) 1.2 (1.0-3.2); LYMPHOCYTES % 7.3 % (18.0-39.1); MEAN CORPUSCULAR HEMOGLOBIN 28.7 pg (28-32); MEAN CORPUSCULAR HGB CONC 31.6 g/dL (31-35); MONOCYTES # (AUTO) 0.9 (0.2-0.8); MONOCYTES % 5.5 % (4.4-11.3); NEUTROPHILS # (AUTO) 14.2 (2.1-6.9); NEUTROPHILS % 84.7 % (38.7-80.0); PLATELET COUNT 165 x10e3/uL (140-360); RED BLOOD COUNT 2.89 x10e6/uL (3.6-5.1); RED CELL DISTRIBUTION WIDTH 19.1 % (11.7-14.4)
[2020-01-31 05:13] LABS: ALBUMIN 2.4 g/dL (3.5-5.0); ALBUMIN/GLOBULIN RATIO 0.5 (0.8-2.0); ANION GAP 15.1 mmol/L (8-16); CALCIUM 9.5 mg/dL (8.4-10.2); CREATININE, SERUM 1.54 mg/dL (0.57-1.11); MAGNESIUM 2.6 MG/DL (1.3-2.1); POTASSIUM 4.1 mmol/L (3.5-5.1)
[2020-01-31] MEDS: VANCOMYCIN 250MG/5ML ORAL SOLN PO SCH ×2 (06:29→14:09)
[2020-01-31] MEDS: CYANOCOBALAMIN 1,000 MCG TAB PO SCH (08:11)
[2020-01-31] MEDS: DOCUSATE SODIUM LIQD 100 MG/10 ML UDC NG SCH (08:11)
[2020-01-31] MEDS: LEVOTHYROXINE SODIUM 100 MCG/VIAL IV SCH (08:11)
[2020-01-31] MEDS: ASPIRIN 81 MG ENTERIC COATED PO SCH (08:11)
[2020-01-31] MEDS: PANTOPRAZOLE 40 MG 10ML VIAL IV SCH (08:11)
[2020-01-31] MEDS: HEPARIN SOD (PORCINE) 5,000 UNIT/ML VIAL SC SCH (08:14)
[2020-01-31] MEDS: DAPTOMYCIN 500mg 10ML 450 MG in SODIUM CHLORIDE 0.9% 100 ML IV SCH (10:37)
[2020-01-31] MEDS ORDERED: HEPARIN SO5000 UNIT/ SC (16:04)
[2020-01-31] MEDS ORDERED: DEXTROSE 50%-WA50 M1 IV (16:04)
[2020-01-31] MEDS ORDERED: MIRALAX17 GM PO (16:04)
[2020-01-31] MEDS ORDERED: ONDANSETRON4 MG/2 M1 IV (16:04)
[2020-01-31] MEDS ORDERED: Insulin Glargine SQ (16:04)
[2020-01-31] MEDS ORDERED: COLACE100 MG/10 NG (16:04)
[2020-01-31] MEDS ORDERED: HUMULIN-R100 UNITS/ IV (16:04)
[2020-01-31] MEDS ORDERED: HYDRALAZIN20 MG/1 ML IV (16:04)
[2020-01-31] MEDS ORDERED: CUBICIN500 MG/VIA IV (16:04)
[2020-01-31] MEDS ORDERED: ACETAMINOPHEN325 M1 PO (16:04)
[2020-01-31] MEDS ORDERED: CHOLESTYRAMINE L4 GM PO (16:04)
[2020-01-31] MEDS ORDERED: LACTULOSE20 GM/30 M PO (16:04)
[2020-01-31] MEDS ORDERED: PROTONIX IV40 MG IV (16:04)
[2020-01-31] MEDS ORDERED: NALOXONE HCL IV (16:04)
[2020-01-31] MEDS ORDERED: VENELEX OINTMEN60 GM TP (16:04)
[2020-01-31] MEDS ORDERED: LEVOTHYROXINE100 MC1 IV (16:04)
[2020-01-31] MEDS ORDERED: VANCOCIN HCL250 MG PO (16:09)
== END 2020-01-31 16:19 | DRG 466 ==
LOC: ER 15:11 → ERHOLD 20:42 → MED/SURG2 21:02 → ICU 01-21 16:57
PROVIDERS: ADMIT Internal Medicine; ATTEND Internal Medicine
PROC: 0S9 Lower Joints, Drainage (ICD-10-PCS; 2020-01-21)
PROC: 02HV33Z Insertion of Infusion Device into Superior Vena Cava, Percutaneous Approach (ICD-10-PCS; 2020-01-21)
PROC: 0BH18EZ Insertion of Endotracheal Airway into Trachea, Via Natural or Artificial Opening Endoscopic (ICD-10-PCS; 2020-01-24)
PROC: 0SP90JZ Removal of Synthetic Substitute from Right Hip Joint, Open Approach (ICD-10-PCS; 2020-01-24)
PROC: 0SR90EZ Replacement of Right Hip Joint with Articulating Spacer, Open Approach (ICD-10-PCS; 2020-01-24)
PROC: 0QS60ZZ Reposition Right Upper Femur, Open Approach (ICD-10-PCS; 2020-01-24)
PROC: 02HV33Z Insertion of Infusion Device into Superior Vena Cava, Percutaneous Approach (ICD-10-PCS; 2020-01-24)
PROC: 5A1D70Z Performance of Urinary Filtration, Intermittent, Less than 6 Hours Per Day (ICD-10-PCS; 2020-01-24)
PROC: 30233K1 Transfusion of Nonautologous Frozen Plasma into Peripheral Vein, Percutaneous Approach (ICD-10-PCS; 2020-01-24)
PROC: 30233N1 Transfusion of Nonautologous Red Blood Cells into Peripheral Vein, Percutaneous Approach (ICD-10-PCS; 2020-01-24)
PROC: 30233R1 Transfusion of Nonautologous Platelets into Peripheral Vein, Percutaneous Approach (ICD-10-PCS; 2020-01-24)
PROC: 5A1955Z Respiratory Ventilation, Greater than 96 Consecutive Hours (ICD-10-PCS; principal; 2020-01-24 07:00)
DX: T84.51XA Infection and inflammatory reaction due to internal right hip prosthesis, initial encounter (principal); E10.10 Type 1 diabetes mellitus with ketoacidosis without coma; A41.02 Sepsis due to Methicillin resistant Staphylococcus aureus; R65.21 Severe sepsis with septic shock; J96.00 Acute respiratory failure, unspecified whether with hypoxia or hypercapnia; N17.0 Acute kidney failure with tubular necrosis; I13.0 Hypertensive heart and chronic kidney disease with heart failure and stage 1 through stage 4 chronic kidney disease, or unspecified chronic kidney disease; E87.1 Hypo-osmolality and hyponatremia; N39.0 Urinary tract infection, site not specified; I43 Cardiomyopathy in diseases classified elsewhere; I50.22 Chronic systolic (congestive) heart failure; N18.30 Chronic kidney disease, stage 3 unspecified; E10.22 Type 1 diabetes mellitus with diabetic chronic kidney disease; Z95.810 Presence of automatic (implantable) cardiac defibrillator; Z96.641 Presence of right artificial hip joint; M04.8 Other autoinflammatory syndromes; Z95.5 Presence of coronary angioplasty implant and graft; Z95.1 Presence of aortocoronary bypass graft; K76.1 Chronic passive congestion of liver; D69.6 Thrombocytopenia, unspecified; K75.89 Other specified inflammatory liver diseases; Z79.899 Other long term (current) drug therapy; M97.01XA Periprosthetic fracture around internal prosthetic right hip joint, initial encounter; K80.20 Calculus of gallbladder without cholecystitis without obstruction; Z20.828 Contact with and (suspected) exposure to other viral communicable diseases
CPT/HCPCS: 20610; 31500; 36415; 36569; 36600; 71045; 72170; 74018; 74177; 74230; 74470; 76705; 78226; 80053; 80061; 81001; 81015; 82140; 82607; 82728; 82746; 82805; 82948; 83036; 83540; 83605; 83735; 83880; 84100; 84436; 84439; 84443; 84466; 84479; 85025; 85045; 85610; 85651; 85730; 86704; 86707; 86850; 86900; 86920; 87040; 87070; 87071; 87075; 87086; 87102; 87186; 87205; 87206; 87340; 89051; 89060; 93005; 93306; 93970; 94002; 94003; 94667; 94668; 97139; 99251; 99284; A9537; J0330; J0692; J1644; J1815; J1817; J1940; J2020; J2250; J2370; J2405; J2543; J2997; J3010; J3370; J3480; J7030; J7040; J7042; J7050; J7799; P9016; P9017; P9034; P9047; Q9967; U0002